=== PATIENT | male | born 1950 | race Caucasian/White ===

== ENCOUNTER → 2016-08-02 | Outpatient (CLI) | payer MEDICARE, BC ==
[~2016-08-02] MED LIST: BARIUM SULFATE 135 ML (E-Z HD) PO ONE
--- NOTE | 2016-08-02 15:39 | RADRPT ---
PROCEDURE: Video-fluoroscopy swallowing study. CLINICAL INDICATION: Dysphagia. TECHNIQUE: Fluoroscopic guided video swallowing study was done in conjunction with the speech ther apist. The study was confined to the oral, pharyngeal, and cervical phases of the swallowing mechani sm. 3.9 minutes of fluoroscopy time was used. COMPARISON: No prior study is available for comparison. FINDINGS: There is transient penetration but no evidence of aspiration during the exam. IMPRESSION: 1. Penetration. No aspiration. 2. Please refer to the speech therapist's recommendations for future feedings. RPTAT: QQ .Santos Cole MD, MD Date Time Electronically viewed and signed by .Santos Cole MD, MD on 08/02/2016 15:39 .R/
== END | disposition home or self-care (01) ==
LOC: RAD 11:54
PROVIDERS: ATTEND Internal Medicine
DX: R91.8 Other nonspecific abnormal finding of lung field (principal); R13.10 Dysphagia, unspecified
CPT/HCPCS: 74230; 92611; G8996; G8997; G8998

== ENCOUNTER 2016-08-29 13:40 | Inpatient (IN) | payer MEDICARE, MEDICAID, BC ==
[~2016-08-29] VITALS: Ht 160 cm; Wt 89.0 kg
[2016-08-29 14:17] LABS: ADD SCAN DIFF NO
[2016-08-29 14:24] LABS: BASOPHILS % 0.4 % (0.0-2.0); EOSINOPHILS # 0.1 10^3/ul (0.0-0.5); EOSINOPHILS % 1.5 % (0.0-7.0); HEMATOCRIT 36.6 % (42.0-52.0); HEMOGLOBIN 11.3 g/dl (14.0-18.0); LYMPHOCYTES # 1.4 10^3/ul (0.8-2.9); LYMPHOCYTES % 18.9 % (15.0-51.0); MEAN CORPUSCULAR HGB CONC 30.9 g/dl (32.0-37.0); MEAN CORPUSCULAR VOLUME 90.6 fl (82.0-101.0); MEAN PLATELET VOLUME 9.7 fl (7.4-10.4); MONOCYTE # 0.8 10^3/ul (0.3-0.9); NEUTROPHILS % 66.9 % (39.0-77.0); PLATELET COUNT 276 10^3/UL (140-415); RED BLOOD COUNT 4.04 10^6/ul (4.70-6.10); RED CELL DISTRIBUTION WIDTH 16.3 % (11.5-14.5); WHITE BLOOD COUNT 7.5 10^3/ul (4.8-10.8)
[2016-08-29 14:33] LABS: ALBUMIN 3.5 g/dl (3.3-4.9); POTASSIUM 3.9 mmol/L (3.5-5.1)
[2016-08-29 14:35] LABS: CREATININE 6.52 mg/dl (0.61-1.24); INR 1.11; PROTIME 14.3 Sec (12.2-14.2); PT RATIO 1.1
[2016-08-29 14:36] LABS: ALBUMIN/GLOBULIN RATIO 0.87; BILIRUBIN,INDIRECT 0.2 mg/dl (0-1.1); BILIRUBIN,TOTAL 0.2 mg/dl (0.2-1.3); CALCIUM 9.7 mg/dl (8.4-10.2); PARTIAL THROMBOPLASTIN TIME 34.2 Sec (25.0-35.0); TOTAL PROTEIN 7.5 g/dl (6.1-8.1)
[2016-08-29 14:48] LABS: TROPONIN-I 0.015 ng/ml (0.00-0.12)
[2016-08-29] MEDS ORDERED: ACETAMINOPHEN 650 MG SUPP PR ONE (15:00)
[2016-08-29 15:29] LABS: ADD UMIC YES; UR BILIRUBIN (Dip) NEGATIVE (NEGATIVE); UR BLOOD (Dip) NEGATIVE (NEGATIVE); UR CLARITY CLEAR (CLEAR); UR COLOR LT. YELLOW (YELLOW); UR GLUCOSE (Dip) NEGATIVE (NEGATIVE); UR KETONES (Dip) NEGATIVE (NEGATIVE); UR LEUKOCYTE ESTERASE (Dip) NEGATIVE (NEGATIVE); UR NITRITE (Dip) NEGATIVE (NEGATIVE); UR TOTAL PROTEIN (Dip) 2+ (NEGATIVE); UR UROBILINOGEN (Dip) 0.2 E.U./dL (0.1-1.0)
--- NOTE | 2016-08-29 15:42 | RADRPT ---
PROCEDURE: Chest Radiograph. CLINICAL INDICATION: Sepsis TECHNIQUE: Single frontal chest radiograph. COMPARISON: None available FINDINGS: A tracheostomy tube is in place. A right chest wall tunneled hemodialysis catheter is noted with di stal tip in the region of the proximal right atrium. The cardiomediastinal silhouette is within nor mal limits. No infiltrate or effusion is seen. The bones are intact. IMPRESSION: 1. No evidence of acute cardiopulmonary disease. RPTAT: KK .Baltazar Carter MD, Date Time Electronically viewed and signed by .Baltazar Carter MD, MD on 08/29/2016 15:42 .B/
[2016-08-29 15:50] LABS: URINE RBCS 0-2 /HPF (0)
[2016-08-29] MEDS ORDERED: AMLO-145 G-TUBE (16:10)
[2016-08-29] MEDS ORDERED: CLON-379 G-TUBE (16:14)
[2016-08-29] MEDS ORDERED: DOXA2TAB G-TUBE (16:16)
[2016-08-29] MEDS ORDERED: FOLI-49 G-TUBE (16:20)
[2016-08-29] MEDS ORDERED: HYDR-3671 G-TUBE (16:21)
[2016-08-29] MEDS ORDERED: HYDR-3672 G-TUBE (16:23)
[2016-08-29] MEDS ORDERED: LEVEM SC (16:26)
[2016-08-29] MEDS ORDERED: SS SC (16:28)
[2016-08-29] MEDS ORDERED: CEFEPIME 1GM/50 ML (PMX) 50 ML IVPB ONE (16:30)
[2016-08-29] MEDS ORDERED: VANCOMYCIN 1 GM (PMX) 250 ML IVPB SCH (16:30)
[2016-08-29] MEDS ORDERED: KEP100S G-TUBE (16:34)
[2016-08-29] MEDS ORDERED: MAG360OR42 G-TUBE (16:37)
[2016-08-29] MEDS ORDERED: METO-448 G-TUBE (16:39)
[2016-08-29] MEDS ORDERED: MAGN400O4 G-TUBE (16:42)
[2016-08-29] MEDS ORDERED: OMEP20CA16 G-TUBE (16:43)
[2016-08-29] MEDS ORDERED: ONDA4SOL PO (16:45)
[2016-08-29] MEDS ORDERED: PROT946L G-TUBE (16:47)
[2016-08-29] MEDS ORDERED: NEPH G-TUBE (16:48)
[2016-08-29] MEDS ORDERED: SENN-53 G-TUBE (16:51)
[2016-08-29] MEDS ORDERED: SEVE0.8P G-TUBE (16:52)
[2016-08-29] MEDS ORDERED: LEVA0.6312 HHN (16:54)
[2016-08-29] MEDS ORDERED: LEVA0.634 INHALATION (16:57)
[2016-08-29] MEDS ORDERED: ZOLP5TAB7 G-TUBE (16:59)
--- NOTE | 2016-08-29 17:06 | ERA ---
ER Documentation Chief Complaint Date/Time DATE: 08/29/16 TIME: 17:02 Chief Complaint SENT FROM SNF FOR EVAL OF FEVER. HPI The patient is a 66-year-old male, presenting with fever of 101.2. 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 Medications Home Meds Reported Medications Zolpidem Tartrate* (Zolpidem Tartrate*) 5 Mg Tablet, 5 MG G-TUBE QHS Y for INSOMNIA, #30 TAB 08/29/16 Levalbuterol Hcl* (Levalbuterol Hcl*) 0.63 Mg/3 Ml Vial.neb, 0.63 MG INHALATION FOUR TIMES DAILY Y for WHEEZING AND SOB, VIAL 08/29/16 Levalbuterol* (Xopenex*) 0.63 Mg/3 Ml Nebu, 0.63 MG HHN Q2H Y for WHEEZING AND SOB, EA 08/29/16 Sevelamer Carbonate* (Renvela*) 0.8 Gm Powd.pack, 0.8 GM G-TUBE WITH MEALS for HIGH PHOSPHOROUS, PACKET 08/29/16 Sennosides* (Senna Lax*) 8.6 Mg Tablet, 1 TAB G-TUBE DAILY for BOWEL MANAGEMENT , TAB HOLD FOR LOOSE STOOLS 08/29/16 Multivit/Ca Carb/B Cmplx/Fa* (Leah-Juan Jose*) 1 Tab Tab, 1 TAB G-TUBE DAILY for SUPPLEMENT, TAB 08/29/16 Protein Supplement (Promod) 946 Ml Liquid, 30 ML G-TUBE TID for LOW ALBUMIN 08/29/16 Ondansetron Hcl* (Ondansetron Hcl* Liq) 4 Mg/5 Ml Solution, 5 ML PO Q6H Y for PRN NV 08/29/16 Omeprazole* (Omeprazole*) 20 Mg Capsule.dr, 20 MG G-TUBE DAILY for GERD, #60 CAP 08/29/16 Magnesium Hydroxide* (Milk Of Magnesia*) 400 Mg/5 Ml Oral.susp, 30 ML G-TUBE DAILY AT BEDTIME Y for CONSTIPATION, ML 08/29/16 Metoprolol Tartrate* (Lopressor*) 25 Mg Tab, 25 MG G-TUBE BID for HTN, #60 TAB Hold forSBP less than 110 or HR less than 60 08/29/16 Mag Hydrox/Al Hydrox/Simeth (ALUM-MAG HYDROXIDE-SIMETH LIQ) 360 Ml Oral.susp, 30 ML G-TUBE Q6 for INDIGESTION 08/29/16 Levetiracetam* (Keppra* (Ped)) 100 Mg/Ml Liq, 5 ML G-TUBE BID for SEIZURES for 30 Days, BOTTLE 08/29/16 Insulin Human Regular (Novolin-R U-100) 100 Unit/Ml Soln, 0 SC SLIDING SCALE AC , EA Inject as per sliding scale: If 71-150=0 unit; 151-200=2 units; 201-250= 4 units ; 251-300= 6 uints; 301-350=8 units; 351-400= 10 units If BS>400, Give 12 units and CallMD, Subcutaneosly two times a day for DM with lancets and test strips. 08/29/16 Insulin Detemir (Levemir) 100 Unit/1 Ml Vial, 8 UNIT SC at Bedtimefor DM, VIAL 08/29/16 Hydralazine Hcl* (Hydralazine Hcl*) 50 Mg Tab, 50 MG G-TUBE Q8 for HTN, #120 TAB Holf for SBP less than 110 or HR les than 60 08/29/16 Hydralazine Hcl* (Hydralazine Hcl*) 25 Mg Tab, 25 MG G-TUBE Q6 Y for HTN, #120 TAB Give SBP>160 OR DIASTOLIC BP >95 08/29/16 Folic Acid* (Folic Acid*) 1 Mg Tablet, 1 MG G-TUBE DAILY for ANEMIA, TAB 08/29/16 Doxazosin Mesylate* (Doxazosin Mesylate*) 2 Mg Tablet, 2 MG G-TUBE QHS for HTN, TAB Hold for SBP less than 110 and HR less than 60 08/29/16 Clonidine Hcl* (Clonidine Hcl*) 0.1 Mg Tab, 0.1 MG G-TUBE DAILY Y for HTN, TAB Hold for SBP less than 110 or HR less than 60 08/29/16 Amlodipine Besylate* (Amlodipine Besylate*) 5 Mg Tablet, 5 MG G-TUBE DAILY for HTN, #30 TAB HOLD FOR SBPLESS THAN 10 OR HR LESS THAN 60 08/29/16 Allergies Allergies: Coded Allergies: No Known Allergy (Unverified , 08/29/16) PMhx/Soc Hx Alcohol Use: No Hx Substance Use: No Hx Tobacco Use: No Smoking Status: Never smoker Physical Exam Vitals Vital Signs Date Time Temp Pulse Resp B/P Pulse Ox O2 Delivery O2 Flow Rate FiO2 08/29/16 15:32 109 24 122/63 97 08/29/16 14:26 109 24 92/57 97 08/29/16 13:42 101.2 114 24 114/57 97 Physical Exam Const: No acute distress. Head: Atraumatic. Eyes: Normal Conjunctiva. ENT: Normal External Ears, Nose and Mouth. Neck: Full range of motion. No meningismus. Resp: Clear to auscultation bilaterally. Cardio: Regular tachycardic Abd: Soft, non distended, normal bowel sounds, non tender. Skin: No petechiae or rashes. Back: No midline or flank tenderness. Ext: No cyanosis, or edema. Neur: Awake and alert. No focal deficit Psych: Normal Mood and Affect. Result Diagram: 08/29/16 1400 08/29/16 1400 Results 24 hrs Laboratory Tests Test 08/29/16 14:00 08/29/16 15:15 White Blood Count 7.510^3/ul Red Blood Count 4.0410^6/ul Hemoglobin 11.3g/dl Hematocrit 36.6% Mean Corpuscular Volume 90.6fl Mean Corpuscular Hemoglobin 28.0pg Mean Corpuscular Hemoglobin Concent 30.9g/dl Red Cell Distribution Width 16.3% Platelet Count 47290^3/UL Mean Platelet Volume 9.7fl Neutrophils % 66.9% Lymphocytes % 18.9% Monocytes % 11.0% Eosinophils % 1.5% Basophils % 0.4% Nucleated Red Blood Cells % 0.0/100WBC Neutrophils # 5.010^3/ul Lymphocytes # 1.410^3/ul Monocytes # 0.810^3/ul Eosinophils # 0.110^3/ul Basophils # 0.010^3/ul Nucleated Red Blood Cells # 0.010^3/ul Prothrombin Time 14.3Sec Prothrombin Time Ratio 1.1 INR International Normalized Ratio 1.11 Activated Partial Thromboplast Time 34.2Sec Sodium Level 132mmol/L Potassium Level 3.9mmol/L Chloride Level 90mmol/L Carbon Dioxide Level 28mmol/L Anion Gap 18 Blood Urea Nitrogen 73mg/dl Creatinine 6.52mg/dl Glucose Level 155mg/dl Lactic Acid Level 1.0mmol/L Calcium Level 9.7mg/dl Total Bilirubin 0.2mg/dl Direct Bilirubin 0.00mg/dl Indirect Bilirubin 0.2mg/dl Aspartate Amino Transf (AST/SGOT) 58IU/L Alanine Aminotransferase (ALT/SGPT) 20IU/L Alkaline Phosphatase 96IU/L Troponin I 0.015ng/ml Total Protein 7.5g/dl Albumin 3.5g/dl Globulin 4.00g/dl Albumin/Globulin Ratio 0.87 Urine Color LT. YELLOW Urine Clarity CLEAR Urine pH 7.5 Urine Specific [place] 1.015 Urine Ketones NEGATIVE Urine Nitrite NEGATIVE Urine Bilirubin NEGATIVE Urine Urobilinogen 0.2 E.U./dL Urine Leukocyte Esterase NEGATIVE Urine Microscopic RBC 0-2/HPF Urine Microscopic WBC 0-2/HPF Urine Hemoglobin NEGATIVE Urine Glucose NEGATIVE% Urine Total Protein 2+ Current Medications Medications (Trade) Dose Ordered Sig/[place] Route PRN Reason Start Time Stop Time Status Last Admin Dose Admin Acetaminophen 650 mg 650 mg ONCE ONCE IA 08/29/16 15:00 08/29/16 15:01 DC 08/29/16 14:45 Vancomycin HCl 250 ml @ 125 mls/hr ONCE IVPB 08/29/16 16:30 08/29/16 18:29 08/29/16 17:00 Cefepime HCl (Maxipime 1gm/50 ml (Pmx)) 50 ml @ 100 mls/hr ONCE ONCE IVPB 08/29/16 16:30 08/29/16 16:59 DC 08/29/16 16:20 Procedures/[place] [id number] Radiology Main Line: [phone] DIAGNOSTIC IMAGING REPORT Patient: PEE MYERS : 1950 Age: 66 Sex: M MR #: [id number] DOS: 08/29/16 1356 Ordering MD: JAVON HERNÁNDEZ MD Location: E/R Room/Bed: PROCEDURE: Chest Radiograph. CLINICAL INDICATION: Sepsis TECHNIQUE: Single frontal chest radiograph. COMPARISON: None available FINDINGS: A tracheostomy tube is in place. A right chest wall tunneled hemodialysis catheter is noted with distal tip in the region of the proximal right atrium. The cardiomediastinal silhouette is within normal limits. No infiltrate or effusion is seen. The bones are intact. IMPRESSION: 1. No evidence of acute cardiopulmonary disease. RPTAT: KK .Baltazar Carter MD, Date Time Electronically viewed and signed by .Baltazar Carter MD, on 2016 15:42 .B/ CC: JAVON HERNÁNDEZ MD EKG: Read by emergency physician Rate/Rhythm: Sinus tachycardia 109 beats/min QRS, ST, T-waves: No ST elevation, no T inversion Impression: Abnormal EKG MEDICAL MAKING DECISION: The patient is a 66-year-old male, presenting with acute febrile illness of unclear etiology. He was treated with Tylenol supp for fever, cefepime IV, vancomycin IV. The differential diagnoses considered include but are not limited to pneumonia, cystitis, pyelonephritis, line sepsis Departure Diagnosis: Primary Impression: Acute febrile illness Additional Impression: Anemia Condition: Stable Comments I discussed the findings with the patient. I discussed the patient with his physician Dr. Oates who was made aware of the lab, the treatment, the patient condition. The patient is admitted to [facility] at 4:10 pm JAVON HERNÁNDEZ MD Aug 29, 2016 17:06
[2016-08-29 18:30] VITALS: TEMP 97.9
[2016-08-29 22:15] VITALS: BMI 20.7
[2016-08-29 22:54] VITALS: BP 153/67; RESP 17
[2016-08-29] MEDS ORDERED: ONDANSETRON 4 MG TAB GTB PRN (23:00)
[2016-08-29] MEDS ORDERED: LEVALBUTEROL (NEB) 0.63 MG/3 ML AMP HHN PRN (23:00)
[2016-08-29] MEDS ORDERED: ZOLPIDEM 5 MG TAB GTB PRN (23:00)
[2016-08-29] MEDS ORDERED: VANCOMYCIN IV PER PHARMACY XX SCH (23:00)
[2016-08-30] VITALS (23 sets, daily range): BP systolic 119–163; BP diastolic 56–89; PULSE 73–109; RESP 17–20
--- NOTE | 2016-08-30 00:28 | HP ---
DATE OF ADMISSION: 08/29/2016 CHIEF COMPLAINT AND HISTORY OF PRESENT ILLNESS: History is obtained from medical record as the yomi ent is nonverbal. The patient is a 66-year-old gentleman with history of right-sided nontraumatic i ntracranial hemorrhage, status post craniotomy; end-stage renal disease on hemodialysis; hypertensio n; dysphagia; diabetes; chronic respiratory failure. The patient is on ventilator and has tracheost brionna and G-tube feeding. The patient has chronic left-sided weakness due to right-sided intracranial bleed. The patient was sent from [facility] subacute unit due to fever. The patient is at [facility], is awake, however nonverbal. The patient did not have any active wheezing. No reported vom iting or diarrhea. No reported acute neurological changes. The patient did not have any bleeding f rom any site. The patient was seen in the ER, was noted to have white count of 7.5. Chest x-ray re vealed no evidence of acute cardiopulmonary disease. The patient has a right-sided PermCath. Blood cultures were sent, and the patient was started on IV vancomycin and cefepime. REVIEW OF SYSTEMS: The patient could not provide. PAST MEDICAL HISTORY: As stated above. ALLERGIES: NONE. SOCIAL HISTORY: The patient has history of nicotine abuse, alcohol abuse, cocaine abuse, details no t available. FAMILY HISTORY: Could not be obtained. PHYSICAL EXAMINATION: GENERAL: The patient is awake, nonverbal, inconsistently tracks. VITAL SIGNS: Temperature 101.2, pulse 115, respirations 24, blood pressure 114/57, O2 saturation 97 %. HEENT: Conjunctivae and lids normal. No nystagmus. Oropharynx examination grossly negative. NECK: Tracheostomy in place. No mass. CHEST: Fairly clear. No use of accessory muscles. CARDIOVASCULAR: Sinus tachycardia. S1, S2 normal. No murmur. ABDOMEN: Soft, nondistended, nontender. G-tube in place. EXTREMITIES: No edema. NEUROLOGIC: The patient is awake, however nonverbal, has dense left hemiplegia. LABORATORY DATA: WBC 7.5, hemoglobin 11.3, platelets 276. Chemistry: Sodium 132, potassium 3.9, B UN 73, creatinine 6.5. Lactic acid normal. AST 58, ALT 20, alkaline phosphatase 96. IMPRESSION: 1. Acute tracheobronchitis. 2. Rule out line sepsis. 3. End-stage renal disease on hemodialysis. 4. Hypertension. 5. History of nontraumatic intracranial bleed, status post craniotomy. 6. Possible seizure disorder. 7. Diabetes. 8. Anemia of chronic kidney disease. PLAN: The patient will be admitted on medical floor. The patient will be started on IV vancomycin and cefepime. Blood culture and sputum culture will be sent along with urine culture. The patient will be given breathing treatment and will be continued on Norvasc, hydralazine and metoprolol for b lood pressure. Will continue doxazosin for BPH. The patient will be continued on insulin for diabe tic management and Keppra for seizures. Will notify his universal grinder operator. Further recommendations will depend on the patient's hospital course. Prognosis for any meaningful recovery poor. The patient remains total care. Dictated By: PHILL FENTON/FRANCES Conf#: [id number] DID#: [id number]
[2016-08-30] MEDS: LANSOPRAZOLE 30 MG CAP GTB SCH (05:38)
[2016-08-30] MEDS: INSULIN ASPART [NOVOLOG] 3 ML PEN SC SCH ×4 (05:50→18:00)
[2016-08-30 07:38] LABS: ADD SCAN DIFF NO
[2016-08-30 07:42] LABS: BASOPHILS % 0.4 % (0.0-2.0); EOSINOPHILS # 0.4 10^3/ul (0.0-0.5); HEMATOCRIT 33.6 % (42.0-52.0); HEMOGLOBIN 10.8 g/dl (14.0-18.0); LYMPHOCYTES % 12.6 % (15.0-51.0); MEAN CORPUSCULAR HGB CONC 32.1 g/dl (32.0-37.0); MEAN CORPUSCULAR VOLUME 90.1 fl (82.0-101.0); MEAN PLATELET VOLUME 9.3 fl (7.4-10.4); MONOCYTE # 0.8 10^3/ul (0.3-0.9); MONOCYTES % 10.6 % (0.0-11.0); NEUTROPHIL # 5.5 10^3/ul (1.6-7.5); NEUTROPHILS % 70.2 % (39.0-77.0); PLATELET COUNT 305 10^3/UL (140-415); RED BLOOD COUNT 3.73 10^6/ul (4.70-6.10); RED CELL DISTRIBUTION WIDTH 16.2 % (11.5-14.5); WHITE BLOOD COUNT 7.8 10^3/ul (4.8-10.8)
[2016-08-30] MEDS: LEVALBUTEROL (NEB) 0.63 MG/3 ML AMP NEB SCH ×4 (08:34→21:17)
[2016-08-30] MEDS ORDERED: CEFEPIME 1GM/50 ML (PMX) 50 ML IVPB SCH (09:00)
[2016-08-30] MEDS: SEVELAMER CARBONATE 0.8 GM PKT GTB SCH ×3 (09:45→17:56)
[2016-08-30] MEDS: AMLODIPINE 5 MG TAB GTB SCH (09:46)
[2016-08-30] MEDS: MULTIVIT/CA CARB/B CMPLX/FA TAB GTB SCH (09:46)
[2016-08-30] MEDS: METOPROLOL 25 MG TAB GTB SCH ×2 (09:46→21:52)
[2016-08-30] MEDS: FOLIC ACID 1 MG TAB GTB SCH (09:47)
[2016-08-30] MEDS: SENNA TAB GTB SCH (09:47)
[2016-08-30] MEDS: LEVETIRACETAM (100 MG/ML) 5ML CUP GTB SCH ×2 (09:47→21:51)
[2016-08-30] MEDS: ACETAMINOPHEN 650MG/20.3ML CUP GTB PRN (09:51)
[2016-08-30 10:40] LABS: POTASSIUM 3.9 mmol/L (3.5-5.1)
[2016-08-30 10:42] LABS: CREATININE 7.58 mg/dl (0.61-1.24)
--- NOTE | 2016-08-30 14:09 | PN ---
Date/Time of Note Date/Time of Note DATE: 08/30/16 TIME: 14:03 Assessment/Plan VTE Prophylaxis VTE Prophylaxis Intervention: other Lines/Catheters IV [facility]ter [facility]from [facility] Saline Lock Urinary Cath still in place: No Assessment/Plan Assessment/Plan - Acute tracheobronchitis. -Pulmonary consult, Dr. Tim notified - Rule out line sepsis. -We will get the ID consult, Dr. Larsen notified - Chronic respiratory failure with tracheostomy, currently on T-piece. - per Dr. Freitas in pulmonology consultation - End-stage renal disease on hemodialysis. -We will get the blueprint duplicator consult, Dr. Sales wascalled by Dr Britton - Hypertension. -Continue metoprolol and hydralazine. - History of nontraumatic intracranial bleed, status post craniotomy. - Possible seizure disorder. Seizure precautions - Diabetes. -Glycemic control - Continue Levemir and NovoLog per mild algorithm sliding scale. - Anemia of chronic kidney disease.= monitor CBC PLAN: The patient will be admitted on medical floor. The patient will be started on IV vancomycin and cefepime. Blood culture and sputum culture will be sent along with urine culture. The patient will be given breathing treatment and will be continued on Norvasc, hydralazine and metoprolol for blood pressure. Will continue doxazosin for BPH. The patient will be continued on insulin for diabetic management and Keppra for seizures. Will notify his blueprint duplicator. Further recommendations will depend on the patient's hospital course. Prognosis for any meaningful recovery poor. The patient remains total care. Subjective 24 Hr Interval Summary Free Text/Dictation febrile, awake, no aitation noted, trach intact . dw staff Subjective hx not possible: pt non-verbal Constitutional: requiring IVF, requiring O2 Eyes: no complaints ENT: no complaints Exam/Review of Systems Vital Signs Vitals Vital Signs Date Time Temp Pulse Resp B/P Pulse Ox O2 Delivery O2 Flow Rate FiO2 08/30/16 12:40 107 08/30/16 11:38 20 98 Aerosol 5.0 28 T Tube 08/30/16 11:28 102.4 133/60 Intake and Output 08/29/16 08/29/16 08/30/16 15:00 23:00 07:00 Intake Total 435 ml Balance 435 ml Exam Psych: nl mood/affect ENMT: nl external ears & nose Respiratory: diminished breath sounds (bilateral diminshed breath sounds) Cardiovascular: regular rate and rhythm Gastrointestinal: non-tender, soft Musculoskeletal: muscle weakness Extremities: normal pulses Neurological: confused Skin: other Lymph: nontender Results Result Diagram: 08/30/16 0700 08/30/16 0955 Results 24 hrs Laboratory Tests Test 08/29/16 15:15 08/29/16 17:15 08/29/16 19:05 08/30/16 00:44 Urine Color LT. YELLOW Urine Clarity CLEAR Urine pH 7.5 Urine Specific [place] 1.015 Urine Ketones NEGATIVE Urine Nitrite NEGATIVE Urine Bilirubin NEGATIVE Urine Urobilinogen 0.2 E.U./dL Urine Leukocyte Esterase NEGATIVE Urine Microscopic RBC 0-2 Urine Microscopic WBC 0-2 Urine Hemoglobin NEGATIVE Urine Glucose NEGATIVE Urine Total Protein 2+ H Lactic Acid Level 1.0 1.5 Bedside Glucose 114 Test 08/30/16 05:45 08/30/16 07:00 08/30/16 09:55 08/30/16 12:13 Bedside Glucose 158 203 White Blood Count 7.8 Red Blood Count 3.73 L Hemoglobin 10.8 L Hematocrit 33.6 L Mean Corpuscular Volume 90.1 Mean Corpuscular Hemoglobin 29.0 Mean Corpuscular Hemoglobin Concent 32.1 Red Cell Distribution Width 16.2 H Platelet Count 305 Mean Platelet Volume 9.3 Neutrophils % 70.2 Lymphocytes % 12.6 L Monocytes % 10.6 Eosinophils % 5.0 Basophils % 0.4 Nucleated Red Blood Cells % 0.0 Neutrophils # 5.5 Lymphocytes # 1.0 Monocytes # 0.8 Eosinophils # 0.4 Basophils # 0.0 Nucleated Red Blood Cells # 0.0 Sodium Level 133 L Potassium Level 3.9 Chloride Level 90 L Carbon Dioxide Level 27 Anion Gap 20 H Blood Urea Nitrogen 89 H Creatinine 7.58 H Glucose Level 189 Calcium Level 10.0 Prealbumin 25.2 Medications Medications Current Medications Amlodipine Besylate (Norvasc) 5 mg DAILY GTB Last administered on 08/30/16t 09: 46; Admin Dose 5 MG; Start 08/30/16 at 09:00 Clonidine (Catapres) 0.1 mg DAILY PRN GTB ELEVATED SYSTOLIC BP; Start 08/29/16 at 23:00 Doxazosin Mesylate (Cardura) 2 mg QHS GTB ; Start 08/30/16 at 21:00 Folic Acid (Folic Acid) 1 mg DAILY GTB Last administered on 08/30/16 09:47; Admin Dose 1 MG; Start 08/30/16 at 09:00 Hydralazine HCl (Apresoline) 50 mg Q8 GTB Last administered on 08/30/16 12:23 ; Admin Dose 50 MG; Start 08/30/16 at 06:00 Levetiracetam (Keppra Liquid) 500 mg BID GTB Last administered on 08/30/16 09: 47; Admin Dose 500 MG; Start 08/30/16 at 09:00 Metoprolol Tartrate (Lopressor) 25 mg BID GTB Last administered on 08/30/16 09 :46; Admin Dose 25 MG; Start 08/30/16 at 09:00 Multivit/Ca Carb/ B Cmplx/FA/Prenat (Leah-Juan Jose) 1 tab DAILY GTB Last administered on 08/30/16 09:46; Admin Dose 1 TAB; Start 08/30/16 at 09:00 Ondansetron HCl (Zofran Tab) 4 mg Q6H PRN GTB NAUSEA AND/OR VOMITING; Start at 23:00 Senna (Senokot) 1 tab DAILY GTB Last administered on 08/30/16 09:47; Admin Dose 1 TAB; Start 08/30/16 at 09:00 Zolpidem Tartrate (Ambien) 5 mg QHS PRN GTB INSOMNIA; Start 08/29/16 at 23:00 Insulin Detemir (Levemir) 8 unit HS SC ; Start 08/30/16 at 21:00 Lansoprazole (Prevacid) 30 mg DAILY@06 GTB Last administered on 08/30/16 05:38 ; Admin Dose 30 MG; Start 08/30/16 at 06:00 Acetaminophen 650 mg 650 mg Q4H PRN GTB PAIN AND OR ELEVATED TEMP Last administered on 08/30/16 09:51; Admin Dose 650 MG; Start 08/29/16 at 23:00 Cefepime HCl (Maxipime 1gm/50 ml (Pmx)) 50 ml @ 100 mls/hr Q12 IVPB Last administered on 08/30/16 09:48; Admin Dose 100 MLS/HR; Start 08/30/16 at 09:00 Insulin Aspart (Novolog Insulin Pen) NOVOLOG *MILD* ALGORI... Q6 SC Last administered on 08/30/16t 12:22; Admin Dose 2 UNIT; Start 08/30/16 at 00:00 Miscellaneous Information (*Rx Drug Level Order Reminder*) RANDOM VANCO LEVEL... ONCE ONCE XX ; Start 08/31/16 at 05:00; Stop 08/31/16 at 05:01 CANDY JUAREZ Aug 30, 2016 14:09
--- NOTE | 2016-08-30 19:04 | CONS ---
Date/Time of Note Date/Time of Note DATE: 08/30/16 TIME: 18:58 Assessment/Plan Assessment/Plan Chief Complaint/Hosp Course assessment/impression - sepsis, possible etiologies include HCAP, bronchitis, bloodstream infections - GNR in sputum culture, possible HCAP - congested cough and clear CXR also raises a concern for viral bronchitis - ESRD on HD - h/o CVA s/p craniotomy - DM recommendations - await the final results of sputum culture, blood cultures from portacath, urine culture - ordered: nasopharyngeal swab for influenza A/B by EIA and influenza by PCR, viral respiratory panel - continue empiric IV vancomycin and cefepime (08/29/2016-) - I placed Pt on droplet precautions until respiratory viruses are ruled out ( ordered today) management d/w Pt's RN Problems: Consultation Date/Type/Reason Admit Date/Time Aug 29, 2016 at 16:21 Date of Consultation: Aug 30, 2016 Reason for Consultation sepsis Referring Provider: CANDY JUAREZ Hx of Present Illness This is a 66 yo male SNF resident who was transferred here due to fever. He has h/o CVA s/p craniotomy, vent and G tube dependent, ESRD on HD, DM. Pt is non-verbal and cannot give me the subjective history. his initial CXR was clear. his sputum culture is growing GNR. Blood and urine cultures are in process. EVELIN Juarez requested ID consultation on this Pt. Subjective hx not possible: pt non-verbal Psychological: nl mood/affect Past Medical History Medical History: diabetes, hypertension, renal disease Past Surgical History Past Surgical Hx: other (craniotomy, G tube, tracheostomy) Social History Smoking Status: Never smoker Exam/Review of Systems Vital Signs Vitals Vital Signs Date Time Temp Pulse Resp B/P Pulse Ox O2 Delivery O2 Flow Rate FiO2 08/30/16 18:49 76 08/30/16 16:42 20 98 Aerosol 5.0 28 T Tube 08/30/16 16:02 99.1 119/56 Intake and Output 08/29/16 08/29/16 08/30/16 15:00 23:00 07:00 Intake Total 435 ml Balance 435 ml Exam Constitutional: frail, non-verbal Psych: confusion Head: other (s/p craniotomy) Eyes: nl conjunctiva ENMT: nl external ears & nose Neck: other (trach) Respiratory: congested cough, wheezing Cardiovascular: nl pulses, regular rate and rhythm Gastrointestinal: non-tender, other (GT), soft Extremities: No edema Neurological: confused, unresponsive Skin: nl turgor Results Result Diagram: 08/30/16 0700 08/30/16 0955 Results 24 hrs Laboratory Tests Test 08/29/16 19:05 08/30/16 00:44 08/30/16 05:45 08/30/16 07:00 Lactic Acid Level 1.5 Bedside Glucose 114 158 White Blood Count 7.8 Red Blood Count 3.73 L Hemoglobin 10.8 L Hematocrit 33.6 L Mean Corpuscular Volume 90.1 Mean Corpuscular Hemoglobin 29.0 Mean Corpuscular Hemoglobin Concent 32.1 Red Cell Distribution Width 16.2 H Platelet Count 305 Mean Platelet Volume 9.3 Neutrophils % 70.2 Lymphocytes % 12.6 L Monocytes % 10.6 Eosinophils % 5.0 Basophils % 0.4 Nucleated Red Blood Cells % 0.0 Neutrophils # 5.5 Lymphocytes # 1.0 Monocytes # 0.8 Eosinophils # 0.4 Basophils # 0.0 Nucleated Red Blood Cells # 0.0 Test 08/30/16 09:55 08/30/16 12:13 08/30/16 17:58 Sodium Level 133 L Potassium Level 3.9 Chloride Level 90 L Carbon Dioxide Level 27 Anion Gap 20 H Blood Urea Nitrogen 89 H Creatinine 7.58 H Glucose Level 189 Calcium Level 10.0 Prealbumin 25.2 Bedside Glucose 203 194 Medications Medications Current Medications Amlodipine Besylate (Norvasc) 5 mg DAILY GTB Last administered on 08/30/16 09: 46; Admin Dose 5 MG; Start 08/30/16 at 09:00 Clonidine (Catapres) 0.1 mg DAILY PRN GTB ELEVATED SYSTOLIC BP; Start 08/29/16 at 23:00 Doxazosin Mesylate (Cardura) 2 mg QHS GTB ; Start 08/30/16 at 21:00 Folic Acid (Folic Acid) 1 mg DAILY GTB Last administered on 08/30/16 09:47; Admin Dose 1 MG; Start 08/30/16 at 09:00 Hydralazine HCl (Apresoline) 50 mg Q8 GTB Last administered on 08/30/16 12:23 ; Admin Dose 50 MG; Start 08/30/16 at 06:00 Levetiracetam (Keppra Liquid) 500 mg BID GTB Last administered on 08/30/16 09: 47; Admin Dose 500 MG; Start 08/30/16 at 09:00 Metoprolol Tartrate (Lopressor) 25 mg BID GTB Last administered on 08/30/16 09 :46; Admin Dose 25 MG; Start 08/30/16 at 09:00 Multivit/Ca Carb/ B Cmplx/FA/Prenat (Leah-Juan Jose) 1 tab DAILY GTB Last administered on 08/30/16 09:46; Admin Dose 1 TAB; Start 08/30/16 at 09:00 Ondansetron HCl (Zofran Tab) 4 mg Q6H PRN GTB NAUSEA AND/OR VOMITING; Start at 23:00 Senna (Senokot) 1 tab DAILY GTB Last administered on 08/30/16 09:47; Admin Dose 1 TAB; Start 08/30/16 at 09:00 Zolpidem Tartrate (Ambien) 5 mg QHS PRN GTB INSOMNIA; Start 08/29/16 at 23:00 Insulin Detemir (Levemir) 8 unit HS SC ; Start 08/30/16 at 21:00 Lansoprazole (Prevacid) 30 mg DAILY@06 GTB Last administered on 08/30/16 05:38 ; Admin Dose 30 MG; Start 08/30/16 at 06:00 Acetaminophen (Tylenol Liquid) 650 mg Q4H PRN GTB PAIN AND OR ELEVATED TEMP Last administered on 08/30/16 09:51; Admin Dose 650 MG; Start 08/29/16 at 23:00 Insulin Aspart (Novolog Insulin Pen) NOVOLOG *MILD* ALGORI... Q6 SC Last administered on 08/30/16 18:00; Admin Dose 2 UNIT; Start 08/30/16 at 00:00 Miscellaneous Information RANDOM VANCO LEVEL... ONCE ONCE XX ; Start 08/31/16 at 05:00; Stop 08/31/16 at 05:01 Cefepime HCl (Maxipime 1gm/50 ml (Pmx)) 50 ml @ 100 mls/hr Q24H IVPB ; Start at 09:00 ESTRELLITA ZAMBRANO M.D. Aug 30, 2016 19:04
--- NOTE | 2016-08-30 20:34 | CONS ---
DATE OF ADMISSION: 08/29/2016 DATE OF CONSULTATION: 08/30/2016 TYPE OF CONSULTATION: Nephrology. REASON FOR CONSULTATION: End-stage renal disease, uremia. REQUESTING CONSULTATION: Dr. Godinez. HISTORY OF PRESENT ILLNESS: This is a 66-year-old male with a past medical history of end-stage cyndy al disease on dialysis Saturday, Saturday, Saturday with access Perm-A-Cath. Last hemodialysis was Sat. The patient has a history of chronic respiratory failure status post tracheostomy, dysphagia s tatus post PEG, history of chronic encephalopathy, history of hypertension, diabetes who presents to [facility] for evaluation of fever. The patient resides at [facility], was noted to have underlying fever. As a result, he was brought into [facility] Emergency Room . In the emergency room, the patient had a chest x-ray that showed no acute cardiopulmonary disease . The patient in the emergency room was started on broad spectrum antibiotic therapy. He was subse quently admitted to telemetry for further evaluation. Upon my evaluation of the patient at this time was noted to have thick productive sputum, but no oth er acute events noted. No hemoptysis, hematemesis or hematochezia. PAST MEDICAL HISTORY: As stated above, history of intracranial hemorrhage status post craniotomy, h istory of end-stage renal disease, history of anemia, history of , history of chronic respirato ry status post tracheostomy, history of dysphagia, history of diabetes, hypertension. PAST SURGICAL HISTORY: Status post trach, status post PEG, status post Perm-A-Cath placement, statu s post craniotomy. FAMILY HISTORY: Noncontributory. SOCIAL HISTORY: Lives at senior living facility. MEDICATIONS: The patient's medications have been reviewed. REVIEW OF SYSTEMS: Unable to do adequate review of system as the patient is nonverbal. Pertinent p ositives obtained by reviewing medical records and speaking to hospital staff, stated in HPI, otherw ise negative. PHYSICAL EXAMINATION: VITAL SIGNS: Blood pressure 133/60, respirations 20, pulse 108, temperature 102.4. HEENT: Head is normocephalic. NECK: Supple. HEART: Regular rate. LUNGS: Show diminished breath sounds at base. ABDOMEN: Soft, nontender to palpation. No rebound or guarding. EXTREMITIES: Negative for clubbing, cyanosis. No edema. DERMATOLOGIC: No rashes. MUSCULOSKELETAL: No joint effusions. NEUROLOGIC: The patient is obtunded, limited exam. LABORATORY DATA: Shows a sodium 7.8, hemoglobin 10, hematocrit 33.6, platelet count 205. Sodium 13 3, potassium 3.9, chloride 90, BUN 89, creatinine 7.5. A urinalysis shows no pyuria, no hematuria. X-ray shows no acute pulmonary disease. The patient's sputum culture shows gram-negative rods. ASSESSMENT AND PLAN: This is a 66-year-old male who presents with: 1. End-stage renal disease, on dialysis Saturday, Saturday, Saturday with a Perm-A-Cath as access. patient's last hemodialysis was Saturday. Plan is for dialysis today for 3 hours, 2K bath, calcium 2.5 for solute clearance and volume removal. Anticipate dialysis tomorrow as well. 2. Anemia of chronic kidney disease. Monitor H and H levels. Give Epogen as needed. 3. Mineral bone disorder. Monitor calcium and phosphorus levels. Continue phosphate binders. 4. Hypertension. Current blood pressure regimen. 5. Sepsis, underlying source unclear, possible line infection versus tracheobronchitis. Plan at th is point is to check an occult blood culture from patient's PermCath. The patient is on empiric ant ibiotic therapy. We will follow up peripheral blood cultures. We follow up with infectious disease for recommendations. 6. Chronic respiratory failure, status post trach. Continue current local trach care, continue tra ch mask. 7. Dysphagia. The patient is on tube feedings. 8. Diabetes. Continue Accu-Cheks and sliding scale. 9. Chronic encephalopathy. No change. 10. Mild hyponatremia. Continue to monitor. The patient will be dialyzed on a 140 sodium bath. 11. Seizure disorder. Continue current medical management. 12. History of intracranial bleed status post craniotomy. Thank you, Dr. Godinez, for this interesting consultation. It will be a pleasure to follow your pa tient with you throughout the hospital course. Dictated By: MARYURI RYAN DO NR/NTS Conf#: [id number] DID#: [id number] CC: PHILL GODINEZ MD;*EndCC*
[2016-08-30] MEDS: INSULIN DETEMIR [LEVEMIR] 3ML CART SC SCH (21:57)
[2016-08-31] VITALS (21 sets, daily range): BP systolic 88–144; BP diastolic 51–78; PULSE 84–112; RESP 18–20
[2016-08-31] MEDS: ACETAMINOPHEN 650MG/20.3ML CUP GTB PRN ×2 (00:44→05:52)
[2016-08-31] MEDS: DOXAZOSIN 2 MG TAB GTB SCH ×2 (00:46→21:19)
[2016-08-31] MEDS: INSULIN ASPART [NOVOLOG] 3 ML PEN SC SCH ×4 (00:56→17:52)
[2016-08-31] MEDS: LANSOPRAZOLE 30 MG CAP GTB SCH (05:40)
[2016-08-31 06:46] LABS: ADD SCAN DIFF NO
[2016-08-31 06:55] LABS: BASOPHIL # 0.1 10^3/ul (0.0-0.1); BASOPHILS % 0.6 % (0.0-2.0); EOSINOPHILS # 0.2 10^3/ul (0.0-0.5); HEMATOCRIT 34.2 % (42.0-52.0); HEMOGLOBIN 10.6 g/dl (14.0-18.0); LYMPHOCYTES # 1.1 10^3/ul (0.8-2.9); LYMPHOCYTES % 13.2 % (15.0-51.0); MEAN CORPUSCULAR HEMOGLOBIN 28.3 pg (29.0-33.0); MEAN CORPUSCULAR VOLUME 91.4 fl (82.0-101.0); MEAN PLATELET VOLUME 9.7 fl (7.4-10.4); NEUTROPHIL # 5.7 10^3/ul (1.6-7.5); NEUTROPHILS % 70.6 % (39.0-77.0); PLATELET COUNT 298 10^3/UL (140-415); RED BLOOD COUNT 3.74 10^6/ul (4.70-6.10); RED CELL DISTRIBUTION WIDTH 16.6 % (11.5-14.5)
[2016-08-31] MEDS ORDERED: DEXTROSE 50% 50 ML SYRINGE IV PRN (07:00)
[2016-08-31] MEDS ORDERED: GLUCAGON 1 MG INJ IM PRN (07:00)
[2016-08-31] MEDS ORDERED: GLUCOSE GEL 15 GRAM TUBE BUCCAL PRN (07:00)
[2016-08-31] MEDS ORDERED: GLUCOSE GEL 15 GRAM TUBE PO PRN ×2 (07:00)
[2016-08-31 07:06] LABS: POTASSIUM 3.9 mmol/L (3.5-5.1)
[2016-08-31 07:08] LABS: CREATININE 5.14 mg/dl (0.61-1.24)
[2016-08-31 07:09] LABS: CALCIUM 9.6 mg/dl (8.4-10.2)
[2016-08-31] MEDS: LEVALBUTEROL (NEB) 0.63 MG/3 ML AMP NEB SCH ×4 (08:55→21:25)
[2016-08-31] MEDS: METOPROLOL 25 MG TAB GTB SCH ×3 (09:00→21:19)
[2016-08-31] MEDS: AMLODIPINE 5 MG TAB GTB SCH ×2 (09:00→15:51)
--- NOTE | 2016-08-31 09:11 | PN ---
DATE: 08/31/2016 SUBJECTIVE: The patient had hemodialysis yesterday and tolerated it well. The patient remains febr ile, but defervescing, as fever curve is decreasing. No other events noted. No hemoptysis, hematem esis or hematochezia. OBJECTIVE: VITAL SIGNS: Blood pressure 111/56, respirations 18, pulse 104, temperature is 99.5. HEENT: Head is normocephalic. NECK: Shows a trach. HEART: Regular rate. LUNGS: Showed diminished breath sounds at the base. ABDOMEN: Soft, nontender to palpation. No rebound or guarding. EXTREMITIES: Negative for clubbing or cyanosis. No edema. DERMATOLOGIC: No rashes. MUSCULOSKELETAL: Have no joint effusion. NEUROLOGIC: No change in exam. MEDICATIONS: The patient's medication have been reviewed. LABORATORY DATA: Shows sodium 136, potassium 3.9, chloride 94, BUN 63, creatinine 5.14. White coun t 8.0, hemoglobin 10.6, hematocrit 34.2, platelet count is 298. ASSESSMENT AND PLAN: 1. End-stage renal disease. The patient is on dialysis Saturday, Saturday, Saturday. Had hemodialysi s yesterday. Plan for dialysis today to maintain schedule. Dialyze for 3 hours, 3K bath, calcium 2 .5. Will ultrafiltrate as tolerated. 2. Anemia of chronic disease. Will continue to monitor H and H levels. Give Epogen. 3. Mineral bone disorder. Continue to monitor calcium and phosphorus levels. Continue phosphate b inders. 4. Hypertension. Continue the current blood pressure regimen. 5. Sepsis. Underlying source unclear, possibly line infection versus tracheal bronchitis. The raymond berrios's cultures from Perm-A-Cath have been drawn. Will continue the current antibiotic regimen and follow up with infectious disease for recommendations. 6. Chronic respiratory failure. Status post trach. Continue local trach care. Continue trach mask . Follow up with pulmonary. 7. Dysphagia. Status post PEG. Continue tube feeding. 8. Diabetes. Continue the current insulin regimen. 9. Chronic encephalopathy. No change. 10. Mild hyponatremia. Continue to monitor. 11. Seizure disorder. Continue medical management. 12. History of intracranial bleed. Status post craniotomy. Dictated By: MARYURI WALLER/FRANCES Conf#: [id number] [facility]#: [id number]
[2016-08-31] MEDS: LEVETIRACETAM (100 MG/ML) 5ML CUP GTB SCH ×2 (09:57→21:18)
[2016-08-31] MEDS: SENNA TAB GTB SCH (09:57)
[2016-08-31] MEDS: SEVELAMER CARBONATE 0.8 GM PKT GTB SCH ×3 (09:57→17:43)
[2016-08-31] MEDS: MULTIVIT/CA CARB/B CMPLX/FA TAB GTB SCH (09:58)
[2016-08-31] MEDS: CEFEPIME 1GM/50 ML (PMX) 50 ML IVPB SCH (09:58)
[2016-08-31] MEDS: FOLIC ACID 1 MG TAB GTB SCH (09:58)
--- NOTE | 2016-08-31 10:33 | CONS ---
Date/Time of Note Date/Time of Note DATE: 08/31/16 TIME: 10:29 Assessment/Plan Assessment/Plan Chief Complaint/Hosp Course assessment/impression - sepsis due to HCAP - HCAP due to pseudomonas - congested cough and clear CXR also raises a concern for viral bronchitis - ESRD on HD - h/o CVA s/p craniotomy - DM recommendations - pending: final results of sputum culture, blood cultures from portacath, influenza A/B by EIA and influenza by PCR - Pt's RN today will follow up on the viral respiratory panel (it was reportedly sent but has not been in process yet) - continue empiric IV vancomycin and cefepime (08/29/2016-); will adjust the antibiotics based on the final culture results - keep Pt on droplet precautions until respiratory viruses are ruled out ( ordered on 08/30/2016) management d/w Pt's RN Problems: Consultation Date/Type/Reason Admit Date/Time Aug 29, 2016 at 16:21 Initial Consult Date 08/30/16 Type of Consultation: ID Referring Provider: CNADY JUAREZ 24 HR Interval Summary Subjective hx not possible: pt non-verbal Exam/Review of Systems Vital Signs Vitals Vital Signs Date Time Temp Pulse Resp B/P Pulse Ox O2 Delivery O2 Flow Rate FiO2 08/31/16 10:16 100 08/31/16 08:56 5.0 28 08/31/16 08:56 18 97 Aerosol T Tube 08/31/16 07:30 99.5 111/56 Intake and Output 08/30/16 08/30/16 08/31/16 15:00 23:00 07:00 Intake Total 400 ml 870 ml Output Total 2700 ml Balance -2300 ml 870 ml Exam Constitutional: non-verbal Psych: confusion Head: normocephalic, other (s/p craniotomy) Eyes: nl conjunctiva, nl lids, nl sclera, No icteric ENMT: nl external ears & nose, nl nasal mucosa & septum Neck: other (trach) Respiratory: congested cough, crackles/rales Cardiovascular: nl pulses, regular rate and rhythm Gastrointestinal: non-tender, other (GT in place), soft, No distended, No tender Musculoskeletal: nl extremities to inspection Extremities: No edema Neurological: unresponsive Skin: nl turgor Results Result Diagram: 08/31/16 0537 08/31/16 0537 Results 24 hrs Laboratory Tests Test 08/30/16 12:13 08/30/16 17:58 08/30/16 21:54 08/31/16 00:51 Bedside Glucose 203 194 236 H 199 Test 08/31/16 05:37 08/31/16 05:38 White Blood Count 8.0 Red Blood Count 3.74 L Hemoglobin 10.6 L Hematocrit 34.2 L Mean Corpuscular Volume 91.4 Mean Corpuscular Hemoglobin 28.3 L Mean Corpuscular Hemoglobin Concent 31.0 L Red Cell Distribution Width 16.6 H Platelet Count 298 Mean Platelet Volume 9.7 Neutrophils % 70.6 Lymphocytes % 13.2 L Monocytes % 12.0 H Eosinophils % 2.0 Basophils % 0.6 Nucleated Red Blood Cells % 0.0 Neutrophils # 5.7 Lymphocytes # 1.1 Monocytes # 1.0 H Eosinophils # 0.2 Basophils # 0.1 Nucleated Red Blood Cells # 0.0 Sodium Level 136 Potassium Level 3.9 Chloride Level 94 L Carbon Dioxide Level 26 Anion Gap 20 H Blood Urea Nitrogen 63 H Creatinine 5.14 #H Glucose Level 216 Calcium Level 9.6 Random Vancomycin Level 10.9 Bedside Glucose 222 H Medications Medications Current Medications Amlodipine Besylate (Norvasc) 5 mg DAILY GTB Last administered on 08/30/16 09: 46; Admin Dose 5 MG; Start 08/30/16 at 09:00 Clonidine (Catapres) 0.1 mg DAILY PRN GTB ELEVATED SYSTOLIC BP; Start 08/29/16 at 23:00 Doxazosin Mesylate (Cardura) 2 mg QHS GTB Last administered on 08/31/16 00:46 ; Admin Dose 2 MG; Start 08/30/16 at 21:00 Folic Acid (Folic Acid) 1 mg DAILY GTB Last administered on 08/31/16 09:58; Admin Dose 1 MG; Start 08/30/16 at 09:00 Hydralazine HCl (Apresoline) 50 mg Q8 GTB Last administered on 08/31/16 05:47 ; Admin Dose 50 MG; Start 08/30/16 at 06:00 Levetiracetam (Keppra Liquid) 500 mg BID GTB Last administered on 08/31/16 09: 57; Admin Dose 500 MG; Start 08/30/16 at 09:00 Metoprolol Tartrate (Lopressor) 25 mg BID GTB Last administered on 08/30/16 21 :52; Admin Dose 25 MG; Start 08/30/16 at 09:00 Multivit/Ca Carb/ B Cmplx/FA/Prenat (Leah-Juan Jose) 1 tab DAILY GTB Last administered on 08/31/16 09:58; Admin Dose 1 TAB; Start 08/30/16 at 09:00 Ondansetron HCl (Zofran Tab) 4 mg Q6H PRN GTB NAUSEA AND/OR VOMITING; Start at 23:00 Senna (Senokot) 1 tab DAILY GTB Last administered on 08/31/16 09:57; Admin Dose 1 TAB; Start 08/30/16 at 09:00 Zolpidem Tartrate (Ambien) 5 mg QHS PRN GTB INSOMNIA; Start 08/29/16 at 23:00 Insulin Detemir (Levemir) 8 unit HS SC Last administered on 08/30/16 21:57; Admin Dose 8 UNIT; Start 08/30/16 at 21:00 Lansoprazole (Prevacid) 30 mg DAILY@06 GTB Last administered on 08/31/16 05:40 ; Admin Dose 30 MG; Start 08/30/16 at 06:00 Acetaminophen (Tylenol Liquid) 650 mg Q4H PRN GTB PAIN AND OR ELEVATED TEMP Last administered on 08/31/16 05:52; Admin Dose 650 MG; Start 08/29/16 at 23:00 Insulin Aspart NOVOLOG *MILD* ALGORI... Q6 SC Last administered on 08/31/16 05 :42; Admin Dose 3 UNIT; Start 08/30/16 at 00:00 Cefepime HCl (Maxipime 1gm/50 ml (Pmx)) 50 ml @ 100 mls/hr Q24H IVPB Last administered on 08/31/16 09:58; Admin Dose 100 MLS/HR; Start 08/31/16 at 09:00 Miscellaneous Information 1 ea NOTE XX ; Start 08/31/16 at 07:00 Glucose (Glutose) 15 gm Q15M PRN PO DECREASED GLUCOSE; Start 08/31/16 at 07:00 Glucose (Glutose) 22.5 gm Q15M PRN PO DECREASED GLUCOSE; Start 08/31/16 at 07: 00 Dextrose (D50w Syringe) 25 ml Q15M PRN IV DECREASED GLUCOSE; Start 08/31/16 at 07:00 Dextrose (D50w Syringe) 50 ml Q15M PRN IV DECREASED GLUCOSE; Start 08/31/16 at 07:00 Glucagon (Glucagen) 1 mg Q15M PRN IM DECREASED GLUCOSE; Start 08/31/16 at 07:00 Glucose (Glutose) 15 gm Q15M PRN BUCCAL DECREASED GLUCOSE; Start 08/31/16 at 07 :00 ESTRELLITA ZAMBRANO M.D. Aug 31, 2016 10:32
--- NOTE | 2016-08-31 10:54 | CONS ---
Date/Time of Note Date/Time of Note DATE: 08/31/16 TIME: 10:50 Assessment/Plan Assessment/Plan Additional Assessment/Plan Chest x-ray was reviewed from yesterday which is essentially clear. Assessment recommendations; 1. Patient admitted for fever etiology is unclear. 2. End-stage renal disease, hypertension, diabetes, seizure disorder, CVA, history of intracranial bleed. 3. Chronic respiratory failure, patient maintained on T-piece. Continue current treatment. Awaiting blood cultures. Will obtain follow-up chest x-ray. Consultation Date/Type/Reason Admit Date/Time Aug 29, 2016 at 16:21 Date of Consultation: Aug 31, 2016 Type of Consultation: Pulmonary Reason for Consultation Pulmonary consultations requested for evaluation of fever possibly pneumonia. History presenting any; patient is a 66-year-old male who was [facility]. Patient is a poor historian however he is awake and follows simple commands history was obtained from medical records. Past medical history; 1. 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 2. Chronic renal failure on hemodialysis. 3. Hypertension. 4. Seizure disorder. 5. Hypertension. 6. Diabetes. 7. Status post tracheostomy and G-tube placement. 8. Patient is currently not ventilator dependent. Medications; were reviewed. Next Allergies; none. Social history; patient has a remote history of smoking. Family history; patient is has a supportive family. Occupational history; patient currently on disability. Review of systems; very limited review of system could be obtained patient denies any shortness of breath any chest pain any abdominal pain. General exam; elderly male, on tracheostomy awake and alert. Psychological: confusion Past Medical History Medical History: diabetes, hypertension, renal disease Past Surgical History Past Surgical Hx: other (craniotomy, G tube, tracheostomy) Social History Smoking Status: Never smoker Exam/Review of Systems Vital Signs Vitals Vital Signs Date Time Temp Pulse Resp B/P Pulse Ox O2 Delivery O2 Flow Rate FiO2 08/31/16 10:16 100 08/31/16 08:56 5.0 28 08/31/16 08:56 18 97 Aerosol T Tube 08/31/16 07:30 99.5 111/56 Intake and Output 08/30/16 08/30/16 08/31/16 15:00 23:00 07:00 Intake Total 400 ml 870 ml Output Total 2700 ml Balance -2300 ml 870 ml Exam HEENT examination; supple neck, no JVD. No lymphadenopathy. Midline trachea. No thyromegaly. Tracheostomy placed with clean insertion site. Pupils are midsize and reactive to light bilaterally. Patient has fair dentition. Pharynx is clear. No neck bruits. No thyromegaly. Chest examination; clear to auscultation. S1-S2 audible, no murmurs. Regular rhythm. Abdomen examination; soft, G-tube in place. Nontender. No organomegaly. Bowel sounds audible. Extremity examination; no peripheral edema. BLUEPRINTER examination: Patient is awake alert follows simple commands and has dense left hemiplegia. Results Result Diagram: 08/31/16 0537 08/31/16 0537 Results 24 hrs Laboratory Tests Test 08/30/16 12:13 08/30/16 17:58 08/30/16 21:54 08/31/16 00:51 Bedside Glucose 203 194 236 H 199 Test 08/31/16 05:37 08/31/16 05:38 White Blood Count 8.0 Red Blood Count 3.74 L Hemoglobin 10.6 L Hematocrit 34.2 L Mean Corpuscular Volume 91.4 Mean Corpuscular Hemoglobin 28.3 L Mean Corpuscular Hemoglobin Concent 31.0 L Red Cell Distribution Width 16.6 H Platelet Count 298 Mean Platelet Volume 9.7 Neutrophils % 70.6 Lymphocytes % 13.2 L Monocytes % 12.0 H Eosinophils % 2.0 Basophils % 0.6 Nucleated Red Blood Cells % 0.0 Neutrophils # 5.7 Lymphocytes # 1.1 Monocytes # 1.0 H Eosinophils # 0.2 Basophils # 0.1 Nucleated Red Blood Cells # 0.0 Sodium Level 136 Potassium Level 3.9 Chloride Level 94 L Carbon Dioxide Level 26 Anion Gap 20 H Blood Urea Nitrogen 63 H Creatinine 5.14 #H Glucose Level 216 Calcium Level 9.6 Random Vancomycin Level 10.9 Bedside Glucose 222 H Medications Medications Current Medications Amlodipine Besylate (Norvasc) 5 mg DAILY GTB Last administered on 08/30/16t 09: 46; Admin Dose 5 MG; Start 08/30/16 at 09:00 Clonidine (Catapres) 0.1 mg DAILY PRN GTB ELEVATED SYSTOLIC BP; Start 08/29/16 at 23:00 Doxazosin Mesylate (Cardura) 2 mg QHS GTB Last administered on 08/31/16 00:46 ; Admin Dose 2 MG; Start 08/30/16 at 21:00 Folic Acid (Folic Acid) 1 mg DAILY GTB Last administered on 08/31/16 09:58; Admin Dose 1 MG; Start 08/30/16 at 09:00 Hydralazine HCl (Apresoline) 50 mg Q8 GTB Last administered on 08/31/16 05:47 ; Admin Dose 50 MG; Start 08/30/16 at 06:00 Levetiracetam (Keppra Liquid) 500 mg BID GTB Last administered on 08/31/16 09: 57; Admin Dose 500 MG; Start 08/30/16 at 09:00 Metoprolol Tartrate (Lopressor) 25 mg BID GTB Last administered on 08/30/16 21 :52; Admin Dose 25 MG; Start 08/30/16 at 09:00 Multivit/Ca Carb/ B Cmplx/FA/Prenat (Leah-Juan Jose) 1 tab DAILY GTB Last administered on 08/31/16 09:58; Admin Dose 1 TAB; Start 08/30/16 at 09:00 Ondansetron HCl (Zofran Tab) 4 mg Q6H PRN GTB NAUSEA AND/OR VOMITING; Start at 23:00 Senna (Senokot) 1 tab DAILY GTB Last administered on 08/31/16 09:57; Admin Dose 1 TAB; Start 08/30/16 at 09:00 Zolpidem Tartrate (Ambien) 5 mg QHS PRN GTB INSOMNIA; Start 08/29/16 at 23:00 Insulin Detemir (Levemir) 8 unit HS SC Last administered on 08/30/16 21:57; Admin Dose 8 UNIT; Start 08/30/16 at 21:00 Lansoprazole (Prevacid) 30 mg DAILY@06 GTB Last administered on 08/31/16 05:40 ; Admin Dose 30 MG; Start 08/30/16 at 06:00 Acetaminophen (Tylenol Liquid) 650 mg Q4H PRN GTB PAIN AND OR ELEVATED TEMP Last administered on 08/31/16 05:52; Admin Dose 650 MG; Start 08/29/16 at 23:00 Insulin Aspart NOVOLOG *MILD* ALGORI... Q6 SC Last administered on 08/31/16 05 :42; Admin Dose 3 UNIT; Start 08/30/16 at 00:00 Cefepime HCl (Maxipime 1gm/50 ml (Pmx)) 50 ml @ 100 mls/hr Q24H IVPB Last administered on 08/31/16 09:58; Admin Dose 100 MLS/HR; Start 08/31/16 at 09:00 Miscellaneous Information 1 ea NOTE XX ; Start 08/31/16 at 07:00 Glucose (Glutose) 15 gm Q15M PRN PO DECREASED GLUCOSE; Start 08/31/16 at 07:00 Glucose (Glutose) 22.5 gm Q15M PRN PO DECREASED GLUCOSE; Start 08/31/16 at 07: 00 Dextrose (D50w Syringe) 25 ml Q15M PRN IV DECREASED GLUCOSE; Start 08/31/16 at 07:00 Dextrose (D50w Syringe) 50 ml Q15M PRN IV DECREASED GLUCOSE; Start 08/31/16 at 07:00 Glucagon (Glucagen) 1 mg Q15M PRN IM DECREASED GLUCOSE; Start 08/31/16 at 07:00 Glucose (Glutose) 15 gm Q15M PRN BUCCAL DECREASED GLUCOSE; Start 08/31/16 at 07 :00 KATHERIN AGUIRRE Aug 31, 2016 10:54
[2016-08-31] MEDS ORDERED: VANCOMYCIN 1 GM in NS 250 ML IVPB SCH (12:00)
--- NOTE | 2016-08-31 14:06 | PN ---
Date/Time of Note Date/Time of Note DATE: 08/31/16 TIME: 13:59 Assessment/Plan VTE Prophylaxis VTE Prophylaxis Intervention: SCD's Lines/Catheters IV Catheter Type (from [facility]): Saline Lock Urinary Cath still in place: No Assessment/Plan Assessment/Plan - Sepsis secondary to HCAP. Continue antibiotics per ID. Dr. Benjy lang is following in infection disease consultation. - HCAP. Sputum cultures positive for Pseudomonas. - Chronic respiratory failure with tracheostomy, currently on T-piece. Dr. Freitas is following in pulmonology consultation - End-stage renal disease on hemodialysis. Continue hemodialysis per nephrology. Dr. Sales is following in nephrology consultation. - Hypertension. Continue metoprolol and hydralazine. - History of nontraumatic intracranial bleed, status post craniotomy. - Possible seizure disorder. Continue Keppra. - Diabetes. Continue Levemir and NovoLog per mild algorithm sliding scale. - Anemia of chronic kidney disease. Further recommendations based on clinical course. Plan of care discussed with Dr. Godinez. Subjective 24 Hr Interval Summary Free Text/Dictation Patient is finished hemodialysis, awake, maintains eye contact does not follow commands, copious secretions from tracheostomy. Exam/Review of Systems Vital Signs Vitals Vital Signs Date Time Temp Pulse Resp B/P Pulse Ox O2 Delivery O2 Flow Rate FiO2 08/31/16 12:04 100 08/31/16 12:02 14 08/31/16 11:40 99 Aerosol 5.0 28 T Tube 08/31/16 07:30 99.5 111/56 Intake and Output 08/30/16 08/30/16 08/31/16 15:00 23:00 07:00 Intake Total 400 ml 870 ml Output Total 2700 ml Balance -2300 ml 870 ml Exam Constitutional: alert, oriented Psych: no complaints Head: atraumatic, normocephalic Eyes: nl conjunctiva ENMT: nl external ears & nose Neck: other (Tracheostomy), supple Respiratory: diminished breath sounds Cardiovascular: regular rate and rhythm Gastrointestinal: non-tender, other (G-tube), soft Musculoskeletal: nl extremities to inspection Extremities: normal pulses Neurological: confused Additional Comments Right chest permacath Results Result Diagram: 08/31/16 0537 08/31/16 0537 Results 24 hrs Laboratory Tests Test 08/30/16 17:58 08/30/16 21:54 08/31/16 00:51 08/31/16 05:37 Bedside Glucose 194 236 H 199 White Blood Count 8.0 Red Blood Count 3.74 L Hemoglobin 10.6 L Hematocrit 34.2 L Mean Corpuscular Volume 91.4 Mean Corpuscular Hemoglobin 28.3 L Mean Corpuscular Hemoglobin Concent 31.0 L Red Cell Distribution Width 16.6 H Platelet Count 298 Mean Platelet Volume 9.7 Neutrophils % 70.6 Lymphocytes % 13.2 L Monocytes % 12.0 H Eosinophils % 2.0 Basophils % 0.6 Nucleated Red Blood Cells % 0.0 Neutrophils # 5.7 Lymphocytes # 1.1 Monocytes # 1.0 H Eosinophils # 0.2 Basophils # 0.1 Nucleated Red Blood Cells # 0.0 Sodium Level 136 Potassium Level 3.9 Chloride Level 94 L Carbon Dioxide Level 26 Anion Gap 20 H Blood Urea Nitrogen 63 H Creatinine 5.14 #H Glucose Level 216 Calcium Level 9.6 Random Vancomycin Level 10.9 Test 08/31/16 05:38 08/31/16 12:22 Bedside Glucose 222 H 216 Medications Medications Current Medications Amlodipine Besylate (Norvasc) 5 mg DAILY GTB Last administered on 08/30/16 09: 46; Admin Dose 5 MG; Start 08/30/16 at 09:00 Clonidine (Catapres) 0.1 mg DAILY PRN GTB ELEVATED SYSTOLIC BP; Start 08/29/16 at 23:00 Doxazosin Mesylate (Cardura) 2 mg QHS GTB Last administered on 08/31/16 00:46 ; Admin Dose 2 MG; Start 08/30/16 at 21:00 Folic Acid (Folic Acid) 1 mg DAILY GTB Last administered on 08/31/16 09:58; Admin Dose 1 MG; Start 08/30/16 at 09:00 Hydralazine HCl (Apresoline) 50 mg Q8 GTB Last administered on 08/31/16 05:47 ; Admin Dose 50 MG; Start 08/30/16 at 06:00 Levetiracetam (Keppra Liquid) 500 mg BID GTB Last administered on 08/31/16 09: 57; Admin Dose 500 MG; Start 08/30/16 at 09:00 Metoprolol Tartrate (Lopressor) 25 mg BID GTB Last administered on 08/30/16 21 :52; Admin Dose 25 MG; Start 08/30/16 at 09:00 Multivit/Ca Carb/ B Cmplx/FA/Prenat (Leah-Juan Jose) 1 tab DAILY GTB Last administered on 08/31/16 09:58; Admin Dose 1 TAB; Start 08/30/16 at 09:00 Ondansetron HCl (Zofran Tab) 4 mg Q6H PRN GTB NAUSEA AND/OR VOMITING; Start at 23:00 Senna (Senokot) 1 tab DAILY GTB Last administered on 08/31/16 09:57; Admin Dose 1 TAB; Start 08/30/16 at 09:00 Zolpidem Tartrate (Ambien) 5 mg QHS PRN GTB INSOMNIA; Start 08/29/16 at 23:00 Insulin Detemir (Levemir) 8 unit HS SC Last administered on 08/30/16 21:57; Admin Dose 8 UNIT; Start 08/30/16 at 21:00 Lansoprazole (Prevacid) 30 mg DAILY@06 GTB Last administered on 08/31/16 05:40 ; Admin Dose 30 MG; Start 08/30/16 at 06:00 Acetaminophen (Tylenol Liquid) 650 mg Q4H PRN GTB PAIN AND OR ELEVATED TEMP Last administered on 08/31/16 05:52; Admin Dose 650 MG; Start 08/29/16 at 23:00 Insulin Aspart NOVOLOG *MILD* ALGORI... Q6 SC Last administered on 08/31/16 12 :35; Admin Dose 2 UNIT; Start 08/30/16 at 00:00 Cefepime HCl (Maxipime 1gm/50 ml (Pmx)) 50 ml @ 100 mls/hr Q24H IVPB Last administered on 08/31/16 09:58; Admin Dose 100 MLS/HR; Start 08/31/16 at 09:00 Miscellaneous Information 1 ea NOTE XX ; Start 08/31/16 at 07:00 Glucose (Glutose) 15 gm Q15M PRN PO DECREASED GLUCOSE; Start 08/31/16 at 07:00 Glucose (Glutose) 22.5 gm Q15M PRN PO DECREASED GLUCOSE; Start 08/31/16 at 07: 00 Dextrose (D50w Syringe) 25 ml Q15M PRN IV DECREASED GLUCOSE; Start 08/31/16 at 07:00 Dextrose (D50w Syringe) 50 ml Q15M PRN IV DECREASED GLUCOSE; Start 08/31/16 at 07:00 Glucagon (Glucagen) 1 mg Q15M PRN IM DECREASED GLUCOSE; Start 08/31/16 at 07:00 Glucose 15 gm 15 gm Q15M PRN BUCCAL DECREASED GLUCOSE; Start 08/31/16 at 07:00 Vancomycin HCl (Vancocin) 250 ml @ 125 mls/hr ONCE IVPB Last administered on t 12:27; Admin Dose 125 MLS/HR; Start 08/31/16 at 12:00; Stop 08/31/16 at 14:00 NOELLE JIMENEZ Aug 31, 2016 14:06
--- NOTE | 2016-08-31 15:15 | RADRPT ---
PROCEDURE: XR Chest. CLINICAL INDICATION: Shortness of breath. The parasellar TECHNIQUE: A single portable view of the chest was obtained. COMPARISON: 08/29/2016 FINDINGS: A right-sided hemodialysis catheter and tracheostomy tube are unchanged. The cardiomediastinal silh ouette is within normal limits. The lungs and pleural spaces are clear. The soft tissues and osseo us structures are unremarkable. IMPRESSION: No acute cardiopulmonary disease. RPTAT: HPNM Physician Miguel Date Time Electronically viewed and signed by Yimi Salazar Physician on 08/31/2016 15:15 /
[2016-08-31] MEDS: INSULIN DETEMIR [LEVEMIR] 3ML CART SC SCH (21:21)
[2016-09-01] VITALS (13 sets, daily range): BP systolic 97–143; BP diastolic 50–60; PULSE 85–95; RESP 15–20
[2016-09-01] MEDS: INSULIN ASPART [NOVOLOG] 3 ML PEN SC SCH ×4 (00:19→17:32)
[2016-09-01] MEDS: LANSOPRAZOLE 30 MG CAP GTB SCH (06:16)
[2016-09-01] MEDS: MULTIVIT/CA CARB/B CMPLX/FA TAB GTB SCH (08:27)
[2016-09-01] MEDS: LEVETIRACETAM (100 MG/ML) 5ML CUP GTB SCH ×2 (08:27→21:05)
[2016-09-01] MEDS: SEVELAMER CARBONATE 0.8 GM PKT GTB SCH ×3 (08:27→17:28)
[2016-09-01] MEDS: SENNA TAB GTB SCH (08:28)
[2016-09-01] MEDS: FOLIC ACID 1 MG TAB GTB SCH (08:28)
[2016-09-01] MEDS: AMLODIPINE 5 MG TAB GTB SCH (08:28)
[2016-09-01] MEDS: CEFEPIME 1GM/50 ML (PMX) 50 ML IVPB SCH (08:28)
[2016-09-01] MEDS: METOPROLOL 25 MG TAB GTB SCH ×2 (08:28→21:00)
[2016-09-01] MEDS: LEVALBUTEROL (NEB) 0.63 MG/3 ML AMP NEB SCH ×4 (08:30→20:52)
--- NOTE | 2016-09-01 09:15 | CONS ---
Date/Time of Note Date/Time of Note DATE: 09/01/16 TIME: 09:14 Consult Date/Type/Reason Admit Date/Time Aug 29, 2016 at 16:21 Initial Consult Date 08/31/16 Type of Consultation: nephrology Ordering Provider: CANDY JUAREZ pt. seen and examined. s/p hd yesterday pe: HEENT: Head is normocephalic. NECK: Shows a trach. HEART: Regular rate. LUNGS: Showed diminished breath sounds at the base. ABDOMEN: Soft, nontender to palpation. No rebound or guarding. EXTREMITIES: Negative for clubbing or cyanosis. No edema. DERMATOLOGIC: No rashes. MUSCULOSKELETAL: Have no joint effusion. NEUROLOGIC: No change in exam. Objective Vital Signs Date Time Temp Pulse Resp B/P Pulse Ox O2 Delivery O2 Flow Rate FiO2 09/01/16 08:10 88 18 97 Aerosol 5.0 09/01/16 07:36 100.2 143/55 Intake and Output 08/31/16 08/31/16 09/01/16 15:00 23:00 07:00 Intake Total 400 ml 960 ml Output Total 2200 ml Balance -1800 ml 960 ml Results/Medications Result Diagram: 08/31/16 0537 08/31/16 0537 Results 24 hrs Laboratory Tests Test 08/31/16 12:22 08/31/16 17:40 08/31/16 20:58 09/01/16 00:15 Bedside Glucose 216 255 H 234 H 182 Test 09/01/16 06:14 Bedside Glucose 153 Medications Current Medications Amlodipine Besylate (Norvasc) 5 mg DAILY GTB Last administered on 09/01/16 08: 28; Admin Dose 5 MG; Start 08/30/16 at 09:00 Clonidine (Catapres) 0.1 mg DAILY PRN GTB ELEVATED SYSTOLIC BP; Start 08/29/16 at 23:00 Doxazosin Mesylate (Cardura) 2 mg QHS GTB Last administered on 08/31/16 21:19 ; Admin Dose 2 MG; Start 08/30/16 at 21:00 Folic Acid (Folic Acid) 1 mg DAILY GTB Last administered on 09/01/16 08:28; Admin Dose 1 MG; Start 08/30/16 at 09:00 Hydralazine HCl (Apresoline) 50 mg Q8 GTB Last administered on 08/31/16 15:49 ; Admin Dose 50 MG; Start 08/30/16 at 06:00 Levetiracetam (Keppra Liquid) 500 mg BID GTB Last administered on 09/01/16 08: 27; Admin Dose 500 MG; Start 08/30/16 at 09:00 Metoprolol Tartrate (Lopressor) 25 mg BID GTB Last administered on 09/01/16 08 :28; Admin Dose 25 MG; Start 08/30/16 at 09:00 Multivit/Ca Carb/ B Cmplx/FA/Prenat (Leah-Juan Jose) 1 tab DAILY GTB Last administered on 09/01/16 08:27; Admin Dose 1 TAB; Start 08/30/16 at 09:00 Ondansetron HCl (Zofran Tab) 4 mg Q6H PRN GTB NAUSEA AND/OR VOMITING; Start at 23:00 Senna (Senokot) 1 tab DAILY GTB Last administered on 09/01/16 08:28; Admin Dose 1 TAB; Start 08/30/16 at 09:00 Zolpidem Tartrate (Ambien) 5 mg QHS PRN GTB INSOMNIA; Start 08/29/16 at 23:00 Insulin Detemir (Levemir) 8 unit HS SC Last administered on 08/31/16 21:21; Admin Dose 8 UNIT; Start 08/30/16 at 21:00 Lansoprazole (Prevacid) 30 mg DAILY@06 GTB Last administered on 09/01/16 06:16 ; Admin Dose 30 MG; Start 08/30/16 at 06:00 Acetaminophen (Tylenol Liquid) 650 mg Q4H PRN GTB PAIN AND OR ELEVATED TEMP Last administered on 08/31/16 05:52; Admin Dose 650 MG; Start 08/29/16 at 23:00 Insulin Aspart NOVOLOG *MILD* ALGORI... Q6 SC Last administered on 09/01/16 06 :23; Admin Dose 1 UNIT; Start 08/30/16 at 00:00 Cefepime HCl (Maxipime 1gm/50 ml (Pmx)) 50 ml @ 100 mls/hr Q24H IVPB Last administered on 09/01/16 08:28; Admin Dose 100 MLS/HR; Start 08/31/16 at 09:00 Miscellaneous Information 1 ea NOTE XX ; Start 08/31/16 at 07:00 Glucose (Glutose) 15 gm Q15M PRN PO DECREASED GLUCOSE; Start 08/31/16 at 07:00 Glucose (Glutose) 22.5 gm Q15M PRN PO DECREASED GLUCOSE; Start 08/31/16 at 07: 00 Dextrose (D50w Syringe) 25 ml Q15M PRN IV DECREASED GLUCOSE; Start 08/31/16 at 07:00 Dextrose (D50w Syringe) 50 ml Q15M PRN IV DECREASED GLUCOSE; Start 08/31/16 at 07:00 Glucagon (Glucagen) 1 mg Q15M PRN IM DECREASED GLUCOSE; Start 08/31/16 at 07:00 Glucose (Glutose) 15 gm Q15M PRN BUCCAL DECREASED GLUCOSE; Start 08/31/16 at 07 :00 Assessment/Plan Chief Complaint/Hosp Course 1. End-stage renal disease. The patient is on dialysis Saturday, Saturday, Saturday. Had hemodialysis yesterday. -watch volume status, adjust meds, access care. 2. Anemia of chronic disease. Will continue to monitor H and H levels. Give Epogen. 3. Mineral bone disorder. Continue to monitor calcium and phosphorus levels. Continue phosphate binders. 4. Hypertension. Continue the current blood pressure regimen. 5. Sepsis. Underlying source unclear, possibly line infection versus tracheal bronchitis. The patient's cultures from Perm-A-Cath have been drawn. Will continue the current antibiotic regimen and follow up with infectious disease for recommendations. 6. Chronic respiratory failure. Status post trach. Continue local trach care. Continue trach mask. Follow up with pulmonary. 7. Dysphagia. Status post PEG. Continue tube feeding. 8. Diabetes. Continue the current insulin regimen. 9. Chronic encephalopathy. No change. 10. Mild hyponatremia. Continue to monitor. 11. Seizure disorder. Continue medical management. 12. History of intracranial bleed. Status post craniotomy. Problems: CHARLOTTE YOUNG MD Sep 01, 2016 09:15
--- NOTE | 2016-09-01 11:06 | CONS ---
CAMACHO MCKEON 09/01/16 1106: Date/Time of Note Date/Time of Note DATE: 09/01/16 TIME: 11:05 Assessment/Plan Assessment/Plan Additional Assessment/Plan - sepsis due to HCAP - HCAP due to pseudomonas - congested cough and clear CXR also raises a concern for viral bronchitis - ESRD on HD - h/o CVA s/p craniotomy - DM recommendations - pending: final results of sputum culture, blood cultures from portacat, influenza A/B by EIA and influenza by PCR - Pt's RN today will follow up on the viral respiratory panel (it was reportedly sent but has not been in process yet) - continue empiric IV vancomycin and cefepime (08/29/2016-); will adjust the antibiotics based on the final culture results - keep Pt on droplet precautions until respiratory viruses are ruled out ( ordered on 08/30/2016) d/w Dr Pa Consultation Date/Type/Reason Admit Date/Time Aug 29, 2016 at 16:21 Initial Consult Date 08/31/16 Type of Consultation: ID Referring Provider: CANDY JUAREZ 24 HR Interval Summary Free Text/Dictation d/w RN. Obtunded. Low grade fever 100.2 o/w no new events. SCx + pseudo sens to Zosyn. CXR clear. UCx neg. BCx NTD Subjective hx not possible: pt non-verbal Exam/Review of Systems Vital Signs Vitals Vital Signs Date Time Temp Pulse Resp B/P Pulse Ox O2 Delivery O2 Flow Rate FiO2 09/01/16 08:10 88 18 97 Aerosol 5.0 28 09/01/16 07:36 100.2 143/55 Intake and Output 08/31/16 08/31/16 09/01/16 15:00 23:00 07:00 Intake Total 400 ml 960 ml Output Total 2200 ml Balance -1800 ml 960 ml Exam Constitutional: frail Head: atraumatic, normocephalic Eyes: nl lids ENMT: nl external ears & nose Neck: other (trach--clean) Respiratory: clear to auscultation Cardiovascular: regular rate and rhythm Gastrointestinal: bowel sounds, non-tender, soft Genitourinary - Male: other ([place] cath--scant o/p) Results Result Diagram: 08/31/1637 08/31/1637 Results 24 hrs Laboratory Tests Test 08/31/16 12:22 08/31/16 17:40 08/31/16 20:58 09/01/16 00:15 Bedside Glucose 216 255 H 234 H 182 Test 09/01/16 06:14 Bedside Glucose 153 Medications Medications Current Medications Amlodipine Besylate (Norvasc) 5 mg DAILY GTB Last administered on 09/01/16 08: 28; Admin Dose 5 MG; Start 08/30/16 at 09:00 Clonidine (Catapres) 0.1 mg DAILY PRN GTB ELEVATED SYSTOLIC BP; Start 08/29/16 at 23:00 Doxazosin Mesylate (Cardura) 2 mg QHS GTB Last administered on 08/31/16 21:19 ; Admin Dose 2 MG; Start 08/30/16 at 21:00 Folic Acid (Folic Acid) 1 mg DAILY GTB Last administered on 09/01/16 08:28; Admin Dose 1 MG; Start 08/30/16 at 09:00 Hydralazine HCl (Apresoline) 50 mg Q8 GTB Last administered on 08/31/16 15:49 ; Admin Dose 50 MG; Start 08/30/16 at 06:00 Levetiracetam (Keppra Liquid) 500 mg BID GTB Last administered on 09/01/16 08: 27; Admin Dose 500 MG; Start 08/30/16 at 09:00 Metoprolol Tartrate (Lopressor) 25 mg BID GTB Last administered on 09/01/16 08 :28; Admin Dose 25 MG; Start 08/30/16 at 09:00 Multivit/Ca Carb/ B Cmplx/FA/Prenat (Leah-Juan Jose) 1 tab DAILY GTB Last administered on 09/01/16 08:27; Admin Dose 1 TAB; Start 08/30/16 at 09:00 Ondansetron HCl (Zofran Tab) 4 mg Q6H PRN GTB NAUSEA AND/OR VOMITING; Start at 23:00 Senna (Senokot) 1 tab DAILY GTB Last administered on 09/01/16 08:28; Admin Dose 1 TAB; Start 08/30/16 at 09:00 Zolpidem Tartrate (Ambien) 5 mg QHS PRN GTB INSOMNIA; Start 08/29/16 at 23:00 Insulin Detemir (Levemir) 8 unit HS SC Last administered on 08/31/16 21:21; Admin Dose 8 UNIT; Start 08/30/16 at 21:00 Lansoprazole (Prevacid) 30 mg DAILY@06 GTB Last administered on 09/01/16 06:16 ; Admin Dose 30 MG; Start 08/30/16 at 06:00 Acetaminophen (Tylenol Liquid) 650 mg Q4H PRN GTB PAIN AND OR ELEVATED TEMP Last administered on 08/31/16 05:52; Admin Dose 650 MG; Start 08/29/16 at 23:00 Insulin Aspart NOVOLOG *MILD* ALGORI... Q6 SC Last administered on 09/01/16 06 :23; Admin Dose 1 UNIT; Start 08/30/16 at 00:00 Cefepime HCl (Maxipime 1gm/50 ml (Pmx)) 50 ml @ 100 mls/hr Q24H IVPB Last administered on 09/01/16 08:28; Admin Dose 100 MLS/HR; Start 08/31/16 at 09:00 Miscellaneous Information 1 ea NOTE XX ; Start 08/31/16 at 07:00 Glucose (Glutose) 15 gm Q15M PRN PO DECREASED GLUCOSE; Start 08/31/16 at 07:00 Glucose (Glutose) 22.5 gm Q15M PRN PO DECREASED GLUCOSE; Start 08/31/16 at 07: 00 Dextrose (D50w Syringe) 25 ml Q15M PRN IV DECREASED GLUCOSE; Start 08/31/16 at 07:00 Dextrose (D50w Syringe) 50 ml Q15M PRN IV DECREASED GLUCOSE; Start 08/31/16 at 07:00 Glucagon (Glucagen) 1 mg Q15M PRN IM DECREASED GLUCOSE; Start 08/31/16 at 07:00 Glucose (Glutose) 15 gm Q15M PRN BUCCAL DECREASED GLUCOSE; Start 08/31/16 at 07 :00 ESTRELLITA PA M.D. 09/03/16 1116: Assessment/Plan Assessment/Plan Additional Assessment/Plan Ember attestation: I discussed the management with PHIL Mckeon and agree with above Exam/Review of Systems Results Result Diagram: 08/31/16 0537 08/31/16 0537 CAMACHO MCKEON Sep 01, 2016 11:06 ESTRELLITA PA M.D. September 03, 2016 11:16
--- NOTE | 2016-09-01 11:18 | PN ---
Date/Time of Note Date/Time of Note DATE: 09/01/16 TIME: 11:18 Assessment/Plan VTE Prophylaxis VTE Prophylaxis Intervention: other Lines/Catheters [facility] Saline Lock Urinary Cath still in place: No Assessment/Plan Chief Complaint/Hosp Course - Sepsis secondary to HCAP. Continue antibiotics per ID. Dr. Benjy lang is following in infection disease consultation. - HCAP. Sputum cultures positive for Pseudomonas. - Chronic respiratory failure with tracheostomy, currently on T-piece. Dr. Freitas is following in pulmonology consultation - End-stage renal disease on hemodialysis. Continue hemodialysis per nephrology. Dr. Sales is following in nephrology consultation. - Hypertension. Continue metoprolol and hydralazine. - History of nontraumatic intracranial bleed, status post craniotomy. - Possible seizure disorder. Continue Keppra. - Diabetes. Continue Levemir and NovoLog per mild algorithm sliding scale. - Anemia of chronic kidney disease. Problems: Subjective 24 Hr Interval Summary Free Text/Dictation Patient has no complaints Exam/Review of Systems Vital Signs Vitals Vital Signs Date Time Temp Pulse Resp B/P Pulse Ox O2 Delivery O2 Flow Rate FiO2 09/01/16 08:10 88 18 97 Aerosol 5.0 09/01/16 07:36 100.2 143/55 Intake and Output 08/31/16 08/31/16 09/01/16 15:00 23:00 07:00 Intake Total 400 ml 960 ml Output Total 2200 ml Balance -1800 ml 960 ml Exam Constitutional: well developed Head: atraumatic, normocephalic Neck: supple Respiratory: diminished breath sounds Cardiovascular: regular rate and rhythm Gastrointestinal: non-tender, soft Extremities: normal pulses Results Result Diagram: 08/31/16 0537 08/31/16 0537 Results 24 hrs Laboratory Tests Test 08/31/16 12:22 08/31/16 17:40 08/31/16 20:58 09/01/16 00:15 Bedside Glucose 216 255 H 234 H 182 Test 09/01/16 06:14 Bedside Glucose 153 Medications Medications Current Medications Amlodipine Besylate (Norvasc) 5 mg DAILY GTB Last administered on 09/01/16t 08: 28; Admin Dose 5 MG; Start 08/30/16 at 09:00 Clonidine (Catapres) 0.1 mg DAILY PRN GTB ELEVATED SYSTOLIC BP; Start 08/29/16 at 23:00 Doxazosin Mesylate (Cardura) 2 mg QHS GTB Last administered on 08/31/16 21:19 ; Admin Dose 2 MG; Start 08/30/16 at 21:00 Folic Acid (Folic Acid) 1 mg DAILY GTB Last administered on 09/01/16 08:28; Admin Dose 1 MG; Start 08/30/16 at 09:00 Hydralazine HCl (Apresoline) 50 mg Q8 GTB Last administered on 08/31/16 15:49 ; Admin Dose 50 MG; Start 08/30/16 at 06:00 Levetiracetam (Keppra Liquid) 500 mg BID GTB Last administered on 09/01/16 08: 27; Admin Dose 500 MG; Start 08/30/16 at 09:00 Metoprolol Tartrate (Lopressor) 25 mg BID GTB Last administered on 09/01/16 08 :28; Admin Dose 25 MG; Start 08/30/16 at 09:00 Multivit/Ca Carb/ B Cmplx/FA/Prenat (Leah-Juan Jose) 1 tab DAILY GTB Last administered on 09/01/16 08:27; Admin Dose 1 TAB; Start 08/30/16 at 09:00 Ondansetron HCl (Zofran Tab) 4 mg Q6H PRN GTB NAUSEA AND/OR VOMITING; Start at 23:00 Senna (Senokot) 1 tab DAILY GTB Last administered on 09/01/16 08:28; Admin Dose 1 TAB; Start 08/30/16 at 09:00 Zolpidem Tartrate (Ambien) 5 mg QHS PRN GTB INSOMNIA; Start 08/29/16 at 23:00 Insulin Detemir (Levemir) 8 unit HS SC Last administered on 08/31/16 21:21; Admin Dose 8 UNIT; Start 08/30/16 at 21:00 Lansoprazole (Prevacid) 30 mg DAILY@06 GTB Last administered on 09/01/16 06:16 ; Admin Dose 30 MG; Start 08/30/16 at 06:00 Acetaminophen (Tylenol Liquid) 650 mg Q4H PRN GTB PAIN AND OR ELEVATED TEMP Last administered on 08/31/16 05:52; Admin Dose 650 MG; Start 08/29/16 at 23:00 Insulin Aspart NOVOLOG *MILD* ALGORI... Q6 SC Last administered on 09/01/16 06 :23; Admin Dose 1 UNIT; Start 08/30/16 at 00:00 Cefepime HCl (Maxipime 1gm/50 ml (Pmx)) 50 ml @ 100 mls/hr Q24H IVPB Last administered on 09/01/16 08:28; Admin Dose 100 MLS/HR; Start 08/31/16 at 09:00 Miscellaneous Information 1 ea NOTE XX ; Start 08/31/16 at 07:00 Glucose (Glutose) 15 gm Q15M PRN PO DECREASED GLUCOSE; Start 08/31/16 at 07:00 Glucose (Glutose) 22.5 gm Q15M PRN PO DECREASED GLUCOSE; Start 08/31/16 at 07: 00 Dextrose (D50w Syringe) 25 ml Q15M PRN IV DECREASED GLUCOSE; Start 08/31/16 at 07:00 Dextrose (D50w Syringe) 50 ml Q15M PRN IV DECREASED GLUCOSE; Start 08/31/16 at 07:00 Glucagon (Glucagen) 1 mg Q15M PRN IM DECREASED GLUCOSE; Start 08/31/16 at 07:00 Glucose (Glutose) 15 gm Q15M PRN BUCCAL DECREASED GLUCOSE; Start 08/31/16 at 07 :00 ARY ROMAN Sep 01, 2016 11:18
[2016-09-01] MEDS: DOXAZOSIN 2 MG TAB GTB SCH (21:00)
[2016-09-01] MEDS: INSULIN DETEMIR [LEVEMIR] 3ML CART SC SCH (21:11)
[2016-09-02] VITALS (12 sets, daily range): BP systolic 115–140; BP diastolic 55–63; PULSE 84–103; RESP 16–20
[2016-09-02] MEDS: INSULIN ASPART [NOVOLOG] 3 ML PEN SC SCH ×4 (00:42→17:32)
[2016-09-02] MEDS: LANSOPRAZOLE 30 MG CAP GTB SCH (05:53)
[2016-09-02] MEDS: LEVALBUTEROL (NEB) 0.63 MG/3 ML AMP NEB SCH ×4 (08:06→20:26)
--- NOTE | 2016-09-02 08:35 | CONS ---
Date/Time of Note Date/Time of Note DATE: 09/02/16 TIME: 08:34 Consult Date/Type/Reason Admit Date/Time Aug 29, 2016 at 16:21 Initial Consult Date 08/31/16 Type of Consultation: nephrology Ordering Provider: CANDY JUAREZ pt. seen and examined. s/p hd fri no new events. pe: Constitutional: well developed Head: atraumatic, normocephalic Neck: supple Respiratory: diminished breath sounds Cardiovascular: regular rate and rhythm Gastrointestinal: non-tender, soft Extremities: normal pulses Objective Vital Signs Date Time Temp Pulse Resp B/P Pulse Ox O2 Delivery O2 Flow Rate FiO2 09/02/16 08:14 103 09/02/16 08:06 16 99 Aerosol 28 T Tube 09/02/16 07:36 99.2 138/63 09/02/16 05:36 5.0 Intake and Output 09/01/16 09/01/16 09/02/16 15:00 23:00 07:00 Intake Total 1010 ml 1030 ml Balance 1010 ml 1030 ml Results/Medications Result Diagram: 08/31/16 0537 08/31/16 0537 Results 24 hrs Laboratory Tests Test 09/01/16 11:26 09/01/16 17:27 09/01/16 20:57 09/02/16 00:34 Bedside Glucose 166 158 189 256 H Test 09/02/16 05:46 Bedside Glucose 233 H Medications Current Medications Amlodipine Besylate (Norvasc) 5 mg DAILY GTB Last administered on 09/01/16 08: 28; Admin Dose 5 MG; Start 08/30/16 at 09:00 Clonidine (Catapres) 0.1 mg DAILY PRN GTB ELEVATED SYSTOLIC BP; Start 08/29/16 at 23:00 Doxazosin Mesylate (Cardura) 2 mg QHS GTB Last administered on 08/31/16 21:19 ; Admin Dose 2 MG; Start 08/30/16 at 21:00 Folic Acid (Folic Acid) 1 mg DAILY GTB Last administered on 09/01/16 08:28; Admin Dose 1 MG; Start 08/30/16 at 09:00 Hydralazine HCl (Apresoline) 50 mg Q8 GTB Last administered on 09/02/16 05:54 ; Admin Dose 50 MG; Start 08/30/16 at 06:00 Levetiracetam (Keppra Liquid) 500 mg BID GTB Last administered on 09/01/16 21: 05; Admin Dose 500 MG; Start 08/30/16 at 09:00 Metoprolol Tartrate (Lopressor) 25 mg BID GTB Last administered on 09/01/16 08 :28; Admin Dose 25 MG; Start 08/30/16 at 09:00 Multivit/Ca Carb/ B Cmplx/FA/Prenat (Leah-Juan Jose) 1 tab DAILY GTB Last administered on 09/01/16 08:27; Admin Dose 1 TAB; Start 08/30/16 at 09:00 Ondansetron HCl (Zofran Tab) 4 mg Q6H PRN GTB NAUSEA AND/OR VOMITING; Start at 23:00 Senna (Senokot) 1 tab DAILY GTB Last administered on 09/01/16 08:28; Admin Dose 1 TAB; Start 08/30/16 at 09:00 Zolpidem Tartrate (Ambien) 5 mg QHS PRN GTB INSOMNIA; Start 08/29/16 at 23:00 Insulin Detemir (Levemir) 8 unit HS SC Last administered on 09/01/16 21:11; Admin Dose 8 UNIT; Start 08/30/16 at 21:00 Lansoprazole (Prevacid) 30 mg DAILY@06 GTB Last administered on 09/02/16 05:53 ; Admin Dose 30 MG; Start 08/30/16 at 06:00 Acetaminophen (Tylenol Liquid) 650 mg Q4H PRN GTB PAIN AND OR ELEVATED TEMP Last administered on 08/31/16 05:52; Admin Dose 650 MG; Start 08/29/16 at 23:00 Insulin Aspart NOVOLOG *MILD* ALGORI... Q6 SC Last administered on 09/02/16 05 :57; Admin Dose 3 UNIT; Start 08/30/16 at 00:00 Cefepime HCl (Maxipime 1gm/50 ml (Pmx)) 50 ml @ 100 mls/hr Q24H IVPB Last administered on 09/01/16 08:28; Admin Dose 100 MLS/HR; Start 08/31/16 at 09:00 Miscellaneous Information 1 ea NOTE XX ; Start 08/31/16 at 07:00 Glucose (Glutose) 15 gm Q15M PRN PO DECREASED GLUCOSE; Start 08/31/16 at 07:00 Glucose (Glutose) 22.5 gm Q15M PRN PO DECREASED GLUCOSE; Start 08/31/16 at 07: 00 Dextrose (D50w Syringe) 25 ml Q15M PRN IV DECREASED GLUCOSE; Start 08/31/16 at 07:00 Dextrose (D50w Syringe) 50 ml Q15M PRN IV DECREASED GLUCOSE; Start 08/31/16 at 07:00 Glucagon (Glucagen) 1 mg Q15M PRN IM DECREASED GLUCOSE; Start 08/31/16 at 07:00 Glucose (Glutose) 15 gm Q15M PRN BUCCAL DECREASED GLUCOSE; Start 08/31/16 at 07 :00 Assessment/Plan Chief Complaint/Hosp Course 1. End-stage renal disease. The patient is on dialysis Saturday, Saturday, Saturday. Had hemodialysis saturday -watch volume status, adjust meds, access care. 2. Anemia of chronic disease. Will continue to monitor H and H levels. Give Epogen. 3. Mineral bone disorder. Continue to monitor calcium and phosphorus levels. Continue phosphate binders. 4. Hypertension. Continue the current blood pressure regimen. 5. Sepsis. Underlying source unclear, possibly line infection versus tracheal bronchitis. The patient's cultures from Perm-A-Cath have been drawn. Will continue the current antibiotic regimen and follow up with infectious disease for recommendations. 6. Chronic respiratory failure. Status post trach. Continue local trach care. Continue trach mask. Follow up with pulmonary. 7. Dysphagia. Status post PEG. Continue tube feeding. 8. Diabetes. Continue the current insulin regimen. 9. Chronic encephalopathy. No change. 10. Mild hyponatremia. Continue to monitor. 11. Seizure disorder. Continue medical management. 12. History of intracranial bleed. Status post craniotomy. Problems: CHARLOTTE YOUNG MD Sep 02, 2016 08:35
[2016-09-02] MEDS: SEVELAMER CARBONATE 0.8 GM PKT GTB SCH ×3 (09:03→17:25)
[2016-09-02] MEDS: SENNA TAB GTB SCH (09:03)
[2016-09-02] MEDS: MULTIVIT/CA CARB/B CMPLX/FA TAB GTB SCH (09:03)
[2016-09-02] MEDS: CEFEPIME 1GM/50 ML (PMX) 50 ML IVPB SCH (09:03)
[2016-09-02] MEDS: AMLODIPINE 5 MG TAB GTB SCH (09:03)
[2016-09-02] MEDS: METOPROLOL 25 MG TAB GTB SCH ×2 (09:04→20:45)
[2016-09-02] MEDS: FOLIC ACID 1 MG TAB GTB SCH (09:04)
[2016-09-02] MEDS: LEVETIRACETAM (100 MG/ML) 5ML CUP GTB SCH ×2 (09:04→20:43)
--- NOTE | 2016-09-02 11:19 | PN ---
Date/Time of Note Date/Time of Note DATE: 09/02/16 TIME: 11:19 Assessment/Plan VTE Prophylaxis VTE Prophylaxis Intervention: other Lines/Catheters IV C[facility] Type ([facility] Saline Lock Urinary Cath still in place: No Assessment/Plan Chief Complaint/Hosp Course - Sepsis secondary to HCAP. Continue antibiotics per ID. Dr. Benjy lang is following in infection disease consultation. - HCAP. Sputum cultures positive for Pseudomonas. - Chronic respiratory failure with tracheostomy, currently on T-piece. Dr. Freitas is following in pulmonology consultation - End-stage renal disease on hemodialysis. Continue hemodialysis per nephrology. Dr. Sales is following in nephrology consultation. - Hypertension. Continue metoprolol and hydralazine. - History of nontraumatic intracranial bleed, status post craniotomy. - Possible seizure disorder. Continue Keppra. - Diabetes. Continue Levemir and NovoLog per mild algorithm sliding scale. - Anemia of chronic kidney disease. Problems: Subjective 24 Hr Interval Summary Free Text/Dictation Patient is not verbally responsive, appears comfortable Exam/Review of Systems Vital Signs Vitals Vital Signs Date Time Temp Pulse Resp B/P Pulse Ox O2 Delivery O2 Flow Rate FiO2 09/02/16 08:14 103 09/02/16 08:06 16 99 Aerosol 28 T Tube 09/02/16 07:36 99.2 138/63 09/02/16 05:36 5.0 Intake and Output 09/01/16 09/01/16 09/02/16 15:00 23:00 07:00 Intake Total 1010 ml 1030 ml Balance 1010 ml 1030 ml Exam Constitutional: well developed Head: atraumatic, normocephalic Neck: supple Respiratory: diminished breath sounds Cardiovascular: regular rate and rhythm Gastrointestinal: non-tender, soft Extremities: normal pulses Results Result Diagram: 08/31/16 0537 08/31/16 0537 Results 24 hrs Laboratory Tests Test 09/01/16 11:26 09/01/16 17:27 09/01/16 20:57 09/02/16 00:34 Bedside Glucose 166 158 189 256 H Test 09/02/16 05:46 Bedside Glucose 233 H Medications Medications Current Medications Amlodipine Besylate (Norvasc) 5 mg DAILY GTB Last administered on 09/02/16t 09: 03; Admin Dose 5 MG; Start 08/30/16 at 09:00 Clonidine (Catapres) 0.1 mg DAILY PRN GTB ELEVATED SYSTOLIC BP; Start 08/29/16 at 23:00 Doxazosin Mesylate (Cardura) 2 mg QHS GTB Last administered on 08/31/16 21:19 ; Admin Dose 2 MG; Start 08/30/16 at 21:00 Folic Acid (Folic Acid) 1 mg DAILY GTB Last administered on 09/02/16 09:04; Admin Dose 1 MG; Start 08/30/16 at 09:00 Hydralazine HCl (Apresoline) 50 mg Q8 GTB Last administered on 09/02/16 05:54 ; Admin Dose 50 MG; Start 08/30/16 at 06:00 Levetiracetam (Keppra Liquid) 500 mg BID GTB Last administered on 09/02/16 09: 04; Admin Dose 500 MG; Start 08/30/16 at 09:00 Metoprolol Tartrate (Lopressor) 25 mg BID GTB Last administered on 09/02/16 09 :04; Admin Dose 25 MG; Start 08/30/16 at 09:00 Multivit/Ca Carb/ B Cmplx/FA/Prenat (Leah-Juan Jose) 1 tab DAILY GTB Last administered on 09/02/16 09:03; Admin Dose 1 TAB; Start 08/30/16 at 09:00 Ondansetron HCl (Zofran Tab) 4 mg Q6H PRN GTB NAUSEA AND/OR VOMITING; Start at 23:00 Senna (Senokot) 1 tab DAILY GTB Last administered on 09/02/16 09:03; Admin Dose 1 TAB; Start 08/30/16 at 09:00 Zolpidem Tartrate (Ambien) 5 mg QHS PRN GTB INSOMNIA; Start 08/29/16 at 23:00 Insulin Detemir (Levemir) 8 unit HS SC Last administered on 09/01/16 21:11; Admin Dose 8 UNIT; Start 08/30/16 at 21:00 Lansoprazole (Prevacid) 30 mg DAILY@06 GTB Last administered on 09/02/16 05:53 ; Admin Dose 30 MG; Start 08/30/16 at 06:00 Acetaminophen (Tylenol Liquid) 650 mg Q4H PRN GTB PAIN AND OR ELEVATED TEMP Last administered on 08/31/16 05:52; Admin Dose 650 MG; Start 08/29/16 at 23:00 Insulin Aspart NOVOLOG *MILD* ALGORI... Q6 SC Last administered on 09/02/16 05 :57; Admin Dose 3 UNIT; Start 08/30/16 at 00:00 Cefepime HCl (Maxipime 1gm/50 ml (Pmx)) 50 ml @ 100 mls/hr Q24H IVPB Last administered on 09/02/16 09:03; Admin Dose 100 MLS/HR; Start 08/31/16 at 09:00 Miscellaneous Information 1 ea NOTE XX ; Start 08/31/16 at 07:00 Glucose (Glutose) 15 gm Q15M PRN PO DECREASED GLUCOSE; Start 08/31/16 at 07:00 Glucose (Glutose) 22.5 gm Q15M PRN PO DECREASED GLUCOSE; Start 08/31/16 at 07: 00 Dextrose (D50w Syringe) 25 ml Q15M PRN IV DECREASED GLUCOSE; Start 08/31/16 at 07:00 Dextrose (D50w Syringe) 50 ml Q15M PRN IV DECREASED GLUCOSE; Start 08/31/16 at 07:00 Glucagon (Glucagen) 1 mg Q15M PRN IM DECREASED GLUCOSE; Start 08/31/16 at 07:00 Glucose (Glutose) 15 gm Q15M PRN BUCCAL DECREASED GLUCOSE; Start 08/31/16 at 07 :00 ARY ROMAN Sep 02, 2016 11:19
[2016-09-02] MEDS: ACETAMINOPHEN 650MG/20.3ML CUP GTB PRN (11:36)
--- NOTE | 2016-09-02 18:12 | CONS ---
Date/Time of Note Date/Time of Note DATE: 09/02/16 TIME: 18:10 Assessment/Plan Assessment/Plan Chief Complaint/Hosp Course - sepsis due to HCAP - HCAP due to pseudomonas - congested cough and clear CXR also raises a concern for viral bronchitis - ESRD on HD - h/o CVA s/p craniotomy - DM recommendations - pending: respiratory viral panel and influenza by PCR - d/c empiric IV vancomycin - continue renally dosed cefepime (08/29/2016-) - keep Pt on droplet precautions until respiratory viruses are ruled out ( ordered on 08/30/2016, results are pending) Problems: Consultation Date/Type/Reason Admit Date/Time Aug 29, 2016 at 16:21 Initial Consult Date 08/30/16 Type of Consultation: ID Referring Provider: CANDY JUAREZ 24 HR Interval Summary Subjective hx not possible: pt non-verbal Exam/Review of Systems Vital Signs Vitals Vital Signs Date Time Temp Pulse Resp B/P Pulse Ox O2 Delivery O2 Flow Rate FiO2 09/02/16 16:32 91 20 99 Aerosol 28 T Tube 09/02/16 15:55 97.8 126/60 09/02/16 12:44 5.0 Intake and Output 09/01/16 09/01/16 09/02/16 15:00 23:00 07:00 Intake Total 1010 ml 1030 ml Balance 1010 ml 1030 ml Exam Constitutional: frail, non-verbal Psych: confusion Head: normocephalic Eyes: nl conjunctiva, nl lids, nl sclera ENMT: mucosa pink and moist Neck: other (trach) Respiratory: crackles/rales Cardiovascular: nl pulses, regular rate and rhythm Gastrointestinal: non-tender, other (GT), soft Genitourinary - Male: other (FC) Musculoskeletal: other (contractured), No swelling Extremities: No edema Neurological: unresponsive Results Result Diagram: 08/31/16 0537 08/31/16 0537 Results 24 hrs Laboratory Tests Test 09/01/16 20:57 09/02/16 00:34 09/02/16 05:46 09/02/16 11:33 Bedside Glucose 189 256 H 233 H 140 Test 09/02/16 17:23 Bedside Glucose 168 Medications Medications Current Medications Amlodipine Besylate (Norvasc) 5 mg DAILY GTB Last administered on 09/02/16 09: 03; Admin Dose 5 MG; Start 08/30/16 at 09:00 Clonidine (Catapres) 0.1 mg DAILY PRN GTB ELEVATED SYSTOLIC BP; Start 08/29/16 at 23:00 Doxazosin Mesylate (Cardura) 2 mg QHS GTB Last administered on 08/31/16 21:19 ; Admin Dose 2 MG; Start 08/30/16 at 21:00 Folic Acid (Folic Acid) 1 mg DAILY GTB Last administered on 09/02/16 09:04; Admin Dose 1 MG; Start 08/30/16 at 09:00 Hydralazine HCl (Apresoline) 50 mg Q8 GTB Last administered on 09/02/16 13:42 ; Admin Dose 50 MG; Start 08/30/16 at 06:00 Levetiracetam (Keppra Liquid) 500 mg BID GTB Last administered on 09/02/16 09: 04; Admin Dose 500 MG; Start 08/30/16 at 09:00 Metoprolol Tartrate (Lopressor) 25 mg BID GTB Last administered on 09/02/16 09 :04; Admin Dose 25 MG; Start 08/30/16 at 09:00 Multivit/Ca Carb/ B Cmplx/FA/Prenat (Leah-Juan Jose) 1 tab DAILY GTB Last administered on 09/02/16 09:03; Admin Dose 1 TAB; Start 08/30/16 at 09:00 Ondansetron HCl (Zofran Tab) 4 mg Q6H PRN GTB NAUSEA AND/OR VOMITING; Start at 23:00 Senna (Senokot) 1 tab DAILY GTB Last administered on 09/02/16 09:03; Admin Dose 1 TAB; Start 08/30/16 at 09:00 Zolpidem Tartrate (Ambien) 5 mg QHS PRN GTB INSOMNIA; Start 08/29/16 at 23:00 Insulin Detemir (Levemir) 8 unit HS SC Last administered on 09/01/16 21:11; Admin Dose 8 UNIT; Start 08/30/16 at 21:00 Lansoprazole (Prevacid) 30 mg DAILY@06 GTB Last administered on 09/02/16 05:53 ; Admin Dose 30 MG; Start 08/30/16 at 06:00 Acetaminophen (Tylenol Liquid) 650 mg Q4H PRN GTB PAIN AND OR ELEVATED TEMP Last administered on 09/02/16 11:36; Admin Dose 650 MG; Start 08/29/16 at 23:00 Insulin Aspart NOVOLOG *MILD* ALGORI... Q6 SC Last administered on 09/02/16 17 :32; Admin Dose 1 UNIT; Start 08/30/16 at 00:00 Cefepime HCl (Maxipime 1gm/50 ml (Pmx)) 50 ml @ 100 mls/hr Q24H IVPB Last administered on 09/02/16 09:03; Admin Dose 100 MLS/HR; Start 08/31/16 at 09:00 Miscellaneous Information 1 ea NOTE XX ; Start 08/31/16 at 07:00 Glucose (Glutose) 15 gm Q15M PRN PO DECREASED GLUCOSE; Start 08/31/16 at 07:00 Glucose (Glutose) 22.5 gm Q15M PRN PO DECREASED GLUCOSE; Start 08/31/16 at 07: 00 Dextrose (D50w Syringe) 25 ml Q15M PRN IV DECREASED GLUCOSE; Start 08/31/16 at 07:00 Dextrose (D50w Syringe) 50 ml Q15M PRN IV DECREASED GLUCOSE; Start 08/31/16 at 07:00 Glucagon (Glucagen) 1 mg Q15M PRN IM DECREASED GLUCOSE; Start 08/31/16 at 07:00 Glucose (Glutose) 15 gm Q15M PRN BUCCAL DECREASED GLUCOSE; Start 08/31/16 at 07 :00 Miscellaneous Information (*Rx Drug Level Order Reminder*) RANDOM VANCOMYCIN LEVEL ... ONCE ONCE XX ; Start 09/03/16 at 05:00; Stop 09/03/16 at 05:01 ESTRELLITA ZAMBRANO M.D. Sep 02, 2016 18:12
[2016-09-02] MEDS: DOXAZOSIN 2 MG TAB GTB SCH (20:44)
[2016-09-02] MEDS: INSULIN DETEMIR [LEVEMIR] 3ML CART SC SCH (20:47)
[2016-09-03] VITALS (22 sets, daily range): BP systolic 94–145; BP diastolic 50–65; PULSE 66–90; RESP 16–19
[2016-09-03] MEDS: INSULIN ASPART [NOVOLOG] 3 ML PEN SC SCH ×5 (00:23→23:34)
[2016-09-03] MEDS: LANSOPRAZOLE 30 MG CAP GTB SCH (05:44)
[2016-09-03 06:07] LABS: ADD SCAN DIFF NO
[2016-09-03 06:17] LABS: BASOPHIL # 0.1 10^3/ul (0.0-0.1); BASOPHILS % 0.5 % (0.0-2.0); EOSINOPHILS # 0.4 10^3/ul (0.0-0.5); EOSINOPHILS % 4.4 % (0.0-7.0); HEMATOCRIT 31.1 % (42.0-52.0); LYMPHOCYTES # 1.2 10^3/ul (0.8-2.9); LYMPHOCYTES % 12.4 % (15.0-51.0); MEAN CORPUSCULAR HEMOGLOBIN 28.8 pg (29.0-33.0); MEAN CORPUSCULAR HGB CONC 32.2 g/dl (32.0-37.0); MEAN CORPUSCULAR VOLUME 89.6 fl (82.0-101.0); MEAN PLATELET VOLUME 9.9 fl (7.4-10.4); MONOCYTE # 0.7 10^3/ul (0.3-0.9); MONOCYTES % 7.5 % (0.0-11.0); NEUTROPHIL # 7.1 10^3/ul (1.6-7.5); NEUTROPHILS % 73.6 % (39.0-77.0); PLATELET COUNT 358 10^3/UL (140-415); RED BLOOD COUNT 3.47 10^6/ul (4.70-6.10); RED CELL DISTRIBUTION WIDTH 16.8 % (11.5-14.5); WHITE BLOOD COUNT 9.6 10^3/ul (4.8-10.8)
[2016-09-03 06:34] LABS: POTASSIUM 3.9 mmol/L (3.5-5.1)
[2016-09-03 06:37] LABS: CREATININE 7.14 mg/dl (0.61-1.24)
[2016-09-03 06:38] LABS: CALCIUM 10.4 mg/dl (8.4-10.2)
[2016-09-03] MEDS: CEFEPIME 1GM/50 ML (PMX) 50 ML IVPB SCH (08:14)
[2016-09-03] MEDS: SEVELAMER CARBONATE 0.8 GM PKT GTB SCH ×3 (08:14→17:19)
[2016-09-03] MEDS: MULTIVIT/CA CARB/B CMPLX/FA TAB GTB SCH (08:15)
[2016-09-03] MEDS: METOPROLOL 25 MG TAB GTB SCH ×2 (08:15→21:15)
[2016-09-03] MEDS: LEVETIRACETAM (100 MG/ML) 5ML CUP GTB SCH ×2 (08:15→21:15)
[2016-09-03] MEDS: FOLIC ACID 1 MG TAB GTB SCH (08:15)
[2016-09-03] MEDS: AMLODIPINE 5 MG TAB GTB SCH (08:15)
[2016-09-03] MEDS: SENNA TAB GTB SCH (08:15)
[2016-09-03 08:26] LABS: INFLUENZA VIRUS A/B SOURCE NASOPHARYNGEAL
[2016-09-03] MEDS: LEVALBUTEROL (NEB) 0.63 MG/3 ML AMP NEB SCH ×4 (08:56→20:00)
--- NOTE | 2016-09-03 11:15 | CONS ---
Date/Time of Note Date/Time of Note DATE: 09/03/16 TIME: 11:14 Assessment/Plan Assessment/Plan Chief Complaint/Hosp Course - sepsis due to HCAP - HCAP due to pseudomonas - congested cough and clear CXR also raises a concern for viral bronchitis - ESRD on HD - h/o CVA s/p craniotomy - DM recommendations - pending: respiratory viral panel and influenza by PCR - continue renally dosed cefepime (08/29/2016-) for pseudomonas, plan for 2 weeks - keep Pt on droplet precautions until respiratory viruses are ruled out ( ordered on 08/30/2016, results are pending) management d/w Pt's RN Problems: Consultation Date/Type/Reason Admit Date/Time Aug 29, 2016 at 16:21 Initial Consult Date 08/30/16 Type of Consultation: ID Referring Provider: CANDY JUAREZ 24 HR Interval Summary Subjective hx not possible: pt non-verbal Exam/Review of Systems Vital Signs Vitals Vital Signs Date Time Temp Pulse Resp B/P Pulse Ox O2 Delivery O2 Flow Rate FiO2 09/03/16 08:57 99 5.0 28 09/03/16 08:57 75 18 Aerosol T Tube 09/03/16 07:36 97.2 131/60 Intake and Output 09/02/16 09/02/16 09/03/16 15:00 23:00 07:00 Intake Total 710 ml 730 ml Balance 710 ml 730 ml Exam Constitutional: frail, non-verbal Psych: confusion Head: atraumatic, normocephalic Eyes: nl conjunctiva, nl lids ENMT: nl external ears & nose Neck: other (trach) Respiratory: crackles/rales Cardiovascular: nl pulses, regular rate and rhythm Gastrointestinal: non-tender, other (GT), soft Genitourinary - Male: nl penis, nl scrotum Musculoskeletal: other (contractured) Extremities: No edema Neurological: lethargic Skin: nl turgor Results Result Diagram: 09/03/16 0600 09/03/16 0600 Results 24 hrs Laboratory Tests Test 09/02/16 11:33 09/02/16 17:23 09/03/16 00:18 09/03/16 05:43 Bedside Glucose 140 168 217 212 Test 09/03/16 06:00 White Blood Count 9.6 Red Blood Count 3.47 L Hemoglobin 10.0 L Hematocrit 31.1 L Mean Corpuscular Volume 89.6 Mean Corpuscular Hemoglobin 28.8 L Mean Corpuscular Hemoglobin Concent 32.2 Red Cell Distribution Width 16.8 H Platelet Count 358 # Mean Platelet Volume 9.9 Neutrophils % 73.6 Lymphocytes % 12.4 L Monocytes % 7.5 Eosinophils % 4.4 Basophils % 0.5 Nucleated Red Blood Cells % 0.0 Neutrophils # 7.1 Lymphocytes # 1.2 Monocytes # 0.7 Eosinophils # 0.4 Basophils # 0.1 Nucleated Red Blood Cells # 0.0 Sodium Level 132 L Potassium Level 3.9 Chloride Level 90 L Carbon Dioxide Level 26 Anion Gap 20 H Blood Urea Nitrogen 102 H Creatinine 7.14 H Glucose Level 207 Calcium Level 10.4 H Medications Medications Current Medications Amlodipine Besylate (Norvasc) 5 mg DAILY GTB Last administered on 09/03/16 08: 15; Admin Dose 5 MG; Start 08/30/16 at 09:00 Clonidine (Catapres) 0.1 mg DAILY PRN GTB ELEVATED SYSTOLIC BP; Start 08/29/16 at 23:00 Doxazosin Mesylate (Cardura) 2 mg QHS GTB Last administered on 09/02/16 20:44 ; Admin Dose 2 MG; Start 08/30/16 at 21:00 Folic Acid (Folic Acid) 1 mg DAILY GTB Last administered on 09/03/16 08:15; Admin Dose 1 MG; Start 08/30/16 at 09:00 Hydralazine HCl (Apresoline) 50 mg Q8 GTB Last administered on 09/02/16 20:44 ; Admin Dose 50 MG; Start 08/30/16 at 06:00 Levetiracetam (Keppra Liquid) 500 mg BID GTB Last administered on 09/03/16 08: 15; Admin Dose 500 MG; Start 08/30/16 at 09:00 Metoprolol Tartrate (Lopressor) 25 mg BID GTB Last administered on 09/03/16 08: 15; Admin Dose 25 MG; Start 08/30/16 at 09:00 Multivit/Ca Carb/ B Cmplx/FA/Prenat (Leah-Juan Jose) 1 tab DAILY GTB Last administered on 09/03/16 08:15; Admin Dose 1 TAB; Start 08/30/16 at 09:00 Ondansetron HCl (Zofran Tab) 4 mg Q6H PRN GTB NAUSEA AND/OR VOMITING; Start at 23:00 Senna (Senokot) 1 tab DAILY GTB Last administered on 09/03/16 08:15; Admin Dose 1 TAB; Start 08/30/16 at 09:00 Zolpidem Tartrate (Ambien) 5 mg QHS PRN GTB INSOMNIA; Start 08/29/16 at 23:00 Insulin Detemir (Levemir) 8 unit HS SC Last administered on 09/02/16 20:47; Admin Dose 8 UNIT; Start 08/30/16 at 21:00 Lansoprazole (Prevacid) 30 mg DAILY@06 GTB Last administered on 09/03/16 05:44 ; Admin Dose 30 MG; Start 08/30/16 at 06:00 Acetaminophen (Tylenol Liquid) 650 mg Q4H PRN GTB PAIN AND OR ELEVATED TEMP Last administered on 09/02/16 11:36; Admin Dose 650 MG; Start 08/29/16 at 23:00 Insulin Aspart NOVOLOG *MILD* ALGORI... Q6 SC Last administered on 09/03/16 05: 48; Admin Dose 2 UNIT; Start 08/30/16 at 00:00 Cefepime HCl (Maxipime 1gm/50 ml (Pmx)) 50 ml @ 100 mls/hr Q24H IVPB Last administered on 09/03/16 08:14; Admin Dose 100 MLS/HR; Start 08/31/16 at 09:00 Miscellaneous Information 1 ea NOTE XX ; Start 08/31/16 at 07:00 Glucose (Glutose) 15 gm Q15M PRN PO DECREASED GLUCOSE; Start 08/31/16 at 07:00 Glucose (Glutose) 22.5 gm Q15M PRN PO DECREASED GLUCOSE; Start 08/31/16 at 07: 00 Dextrose (D50w Syringe) 25 ml Q15M PRN IV DECREASED GLUCOSE; Start 08/31/16 at 07:00 Dextrose (D50w Syringe) 50 ml Q15M PRN IV DECREASED GLUCOSE; Start 08/31/16 at 07:00 Glucagon (Glucagen) 1 mg Q15M PRN IM DECREASED GLUCOSE; Start 08/31/16 at 07:00 Glucose (Glutose) 15 gm Q15M PRN BUCCAL DECREASED GLUCOSE; Start 08/31/16 at 07 :00 ESTRELLITA AZMBRANO M.D. September 03, 2016 11:15
--- NOTE | 2016-09-03 11:21 | PN ---
DATE: 09/03/2016 SUBJECTIVE: The patient is stable. No events overnight. No fevers, chills, nausea, vomiting. OBJECTIVE: VITAL SIGNS: Blood pressure 121/60, respiration 17, pulse 70, temperature 97.2. HEENT: Head is normocephalic. NECK: Supple. HEART: Regular rate. LUNGS: Show diminished breath sounds at the base. ABDOMEN: Soft, nontender to palpation without rebound or guarding. EXTREMITIES: Negative for clubbing, cyanosis. No edema. DERMATOLOGIC: No rashes. MUSCULOSKELETAL: No joint effusions. NEUROLOGIC: No change in exam. MEDICATIONS: Patient's medication has been reviewed. LABORATORY DATA: White count 9.6, hemoglobin 10.0, hematocrit 31.1, platelet count 358. Sodium 132 , potassium 3.9, chloride 90, BUN 102, creatinine 7.14, calcium level is 10.4. ASSESSMENT AND PLAN: 1. End-stage renal disease. The patient is scheduled for dialysis today. Will dialyze for 3 hours , 2K bath, calcium 2.5. 2. Anemia of end-stage renal disease. Continue to monitor hemoglobin and hematocrit levels. Karissa nue Epogen. 3. Mineral bone disorder. Continue to monitor calcium and phosphorus levels. Continue phos binder s. 4. Hypertension. Continue current blood pressure regimen. 5. Sepsis. Etiology is felt to be secondary to healthcare-acquired pneumonia due to Pseudomonas. Continue current antibiotic regimen and follow up with infectious disease. 6. Chronic respiratory failure, status post trach. Continue local trach care. Follow up with pulm onsevern. 7. Dysphagia. Status post PEG. Continue tube feed. 8. Diabetes. Continue Accu-Cheks, insulin sliding scale. 9. Diabetes. Continue current insulin regimen. 10. Chronic encephalopathy. No change. 11. Hypernatremia. The patient will be dialyzed on a 140 sodium bath. Will limit free water flush es. 12. Seizure disorder. Continue medical management. 13. History of intracranial bleed, status post craniotomy. Dictated By: MARYURI WALLER/FRANCES Conf#: [id number] DID#: [id number]
--- NOTE | 2016-09-03 18:32 | PN ---
Date/Time of Note Date/Time of Note DATE: 09/03/16 TIME: 18:27 Assessment/Plan VTE Prophylaxis VTE Prophylaxis Intervention: SCD's Lines/Catheters IV C[facility]ter Type (from [facility]): Peripheral IV Central line still needed: Yes Urinary Cath still in place: No Assessment/Plan Chief Complaint/Hosp Course Assessment/Plan - Sepsis secondary to HCAP. Continue antibiotics per ID. Dr. Benjy lang is following in infection disease consultation. - HCAP. Sputum cultures positive for Pseudomonas. Pending respiratory viral panel. Continue contact isolation. - Chronic respiratory failure with tracheostomy, currently on T-piece. Dr. Freitas is following in pulmonology consultation - End-stage renal disease on hemodialysis. Continue hemodialysis per nephrology. Dr. Sales is following in nephrology consultation. - Hypertension. Continue metoprolol and hydralazine. - History of nontraumatic intracranial bleed, status post craniotomy. - Possible seizure disorder. Continue Keppra. - Diabetes. Continue Levemir and NovoLog per mild algorithm sliding scale. - Anemia of chronic kidney disease. Further recommendations based on clinical course. Plan of care discussed with Dr. Godinez. Problems: Subjective 24 Hr Interval Summary Free Text/Dictation Patient continues to have copious secretions from tracheostomy, requiring frequent suctioning, diminished lung sounds with bilateral rhonchi on auscultation, tachycardic at times, low-grade fever yesterday, afebrile today, patient is currently undergoing hemodialysis. Pending is pending influenza swab results and respiratory viral panel. Exam/Review of Systems Vital Signs Vitals Vital Signs Date Time Temp Pulse Resp B/P Pulse Ox O2 Delivery O2 Flow Rate FiO2 09/03/16 17:10 73 09/03/16 16:55 18 100 Aerosol 5.0 28 T Tube 09/03/16 15:46 97.4 145/65 Intake and Output 09/02/16 09/02/16 09/03/16 15:00 23:00 07:00 Intake Total 710 ml 730 ml Balance 710 ml 730 ml Exam Constitutional: alert, oriented Psych: no complaints Head: atraumatic, normocephalic Eyes: nl conjunctiva ENMT: nl external ears & nose Neck: other (Tracheostomy), supple Respiratory: diminished breath sounds, rhonchi bilaterally, copious secretions from tracheostomy. Cardiovascular: regular rate and rhythm Gastrointestinal: non-tender, other (G-tube), soft Musculoskeletal: nl extremities to inspection Extremities: normal pulses Neurological: confused Additional Comments Right chest permacath Results Result Diagram: 09/03/16 0600 09/03/16 0600 Results 24 hrs Laboratory Tests Test 09/03/16 00:18 09/03/16 05:43 09/03/16 06:00 09/03/16 12:23 Bedside Glucose 217 212 213 White Blood Count 9.6 Red Blood Count 3.47 L Hemoglobin 10.0 L Hematocrit 31.1 L Mean Corpuscular Volume 89.6 Mean Corpuscular Hemoglobin 28.8 L Mean Corpuscular Hemoglobin Concent 32.2 Red Cell Distribution Width 16.8 H Platelet Count 358 # Mean Platelet Volume 9.9 Neutrophils % 73.6 Lymphocytes % 12.4 L Monocytes % 7.5 Eosinophils % 4.4 Basophils % 0.5 Nucleated Red Blood Cells % 0.0 Neutrophils # 7.1 Lymphocytes # 1.2 Monocytes # 0.7 Eosinophils # 0.4 Basophils # 0.1 Nucleated Red Blood Cells # 0.0 Sodium Level 132 L Potassium Level 3.9 Chloride Level 90 L Carbon Dioxide Level 26 Anion Gap 20 H Blood Urea Nitrogen 102 H Creatinine 7.14 H Glucose Level 207 Calcium Level 10.4 H Test 09/03/16 17:14 Bedside Glucose 171 Medications Medications Current Medications Amlodipine Besylate (Norvasc) 5 mg DAILY GTB Last administered on 09/03/16 08: 15; Admin Dose 5 MG; Start 08/30/16 at 09:00 Clonidine (Catapres) 0.1 mg DAILY PRN GTB ELEVATED SYSTOLIC BP; Start 08/29/16 at 23:00 Doxazosin Mesylate (Cardura) 2 mg QHS GTB Last administered on 09/02/16 20:44 ; Admin Dose 2 MG; Start 08/30/16 at 21:00 Folic Acid (Folic Acid) 1 mg DAILY GTB Last administered on 09/03/16 08:15; Admin Dose 1 MG; Start 08/30/16 at 09:00 Hydralazine HCl (Apresoline) 50 mg Q8 GTB Last administered on 09/02/16 20:44 ; Admin Dose 50 MG; Start 08/30/16 at 06:00 Levetiracetam (Keppra Liquid) 500 mg BID GTB Last administered on 09/03/16 08: 15; Admin Dose 500 MG; Start 08/30/16 at 09:00 Metoprolol Tartrate (Lopressor) 25 mg BID GTB Last administered on 09/03/16 08: 15; Admin Dose 25 MG; Start 08/30/16 at 09:00 Multivit/Ca Carb/ B Cmplx/FA/Prenat (Leah-Juan Jose) 1 tab DAILY GTB Last administered on 09/03/16 08:15; Admin Dose 1 TAB; Start 08/30/16 at 09:00 Ondansetron HCl (Zofran Tab) 4 mg Q6H PRN GTB NAUSEA AND/OR VOMITING; Start at 23:00 Senna (Senokot) 1 tab DAILY GTB Last administered on 09/03/16 08:15; Admin Dose 1 TAB; Start 08/30/16 at 09:00 Zolpidem Tartrate (Ambien) 5 mg QHS PRN GTB INSOMNIA; Start 08/29/16 at 23:00 Lansoprazole (Prevacid) 30 mg DAILY@06 GTB Last administered on 09/03/16 05:44 ; Admin Dose 30 MG; Start 08/30/16 at 06:00 Acetaminophen (Tylenol Liquid) 650 mg Q4H PRN GTB PAIN AND OR ELEVATED TEMP Last administered on 09/02/16 11:36; Admin Dose 650 MG; Start 08/29/16 at 23:00 Insulin Aspart NOVOLOG *MILD* ALGORI... Q6 SC Last administered on 09/03/16 17: 22; Admin Dose 1 UNIT; Start 08/30/16 at 00:00 Cefepime HCl (Maxipime 1gm/50 ml (Pmx)) 50 ml @ 100 mls/hr Q24H IVPB Last administered on 09/03/16 08:14; Admin Dose 100 MLS/HR; Start 08/31/16 at 09:00 Miscellaneous Information 1 ea NOTE XX ; Start 08/31/16 at 07:00 Glucose (Glutose) 15 gm Q15M PRN PO DECREASED GLUCOSE; Start 08/31/16 at 07:00 Glucose (Glutose) 22.5 gm Q15M PRN PO DECREASED GLUCOSE; Start 08/31/16 at 07: 00 Dextrose (D50w Syringe) 25 ml Q15M PRN IV DECREASED GLUCOSE; Start 08/31/16 at 07:00 Dextrose (D50w Syringe) 50 ml Q15M PRN IV DECREASED GLUCOSE; Start 08/31/16 at 07:00 Glucagon (Glucagen) 1 mg Q15M PRN IM DECREASED GLUCOSE; Start 08/31/16 at 07:00 Glucose (Glutose) 15 gm Q15M PRN BUCCAL DECREASED GLUCOSE; Start 08/31/16 at 07 :00 Insulin Detemir (Levemir) 12 unit HS SC ; Start 09/03/16 at 21:00 NOELLE JIMENEZ September 03, 2016 18:31
[2016-09-03] MEDS: DOXAZOSIN 2 MG TAB GTB SCH (21:15)
[2016-09-03] MEDS: INSULIN DETEMIR [LEVEMIR] 3ML CART SC SCH (21:18)
[2016-09-04] VITALS (10 sets, daily range): BP systolic 104–186; BP diastolic 50–82; PULSE 79–95; RESP 18–19
[2016-09-04] MEDS: LANSOPRAZOLE 30 MG CAP GTB SCH (06:01)
[2016-09-04] MEDS: INSULIN ASPART [NOVOLOG] 3 ML PEN SC SCH ×4 (06:07→23:54)
[2016-09-04 07:24] LABS: ADD SCAN DIFF NO
[2016-09-04 07:43] LABS: BASOPHILS % 0.3 % (0.0-2.0); EOSINOPHILS # 0.3 10^3/ul (0.0-0.5); EOSINOPHILS % 3.2 % (0.0-7.0); HEMATOCRIT 33.5 % (42.0-52.0); HEMOGLOBIN 10.5 g/dl (14.0-18.0); LYMPHOCYTES % 10.8 % (15.0-51.0); MEAN CORPUSCULAR HEMOGLOBIN 28.1 pg (29.0-33.0); MEAN CORPUSCULAR HGB CONC 31.3 g/dl (32.0-37.0); MEAN CORPUSCULAR VOLUME 89.6 fl (82.0-101.0); MEAN PLATELET VOLUME 9.9 fl (7.4-10.4); MONOCYTE # 0.6 10^3/ul (0.3-0.9); MONOCYTES % 6.5 % (0.0-11.0); NEUTROPHIL # 7.2 10^3/ul (1.6-7.5); NEUTROPHILS % 77.4 % (39.0-77.0); PLATELET COUNT 385 10^3/UL (140-415); RED BLOOD COUNT 3.74 10^6/ul (4.70-6.10); RED CELL DISTRIBUTION WIDTH 16.8 % (11.5-14.5); WHITE BLOOD COUNT 9.3 10^3/ul (4.8-10.8)
[2016-09-04 07:51] LABS: POTASSIUM 3.1 mmol/L (3.5-5.1)
[2016-09-04 07:54] LABS: CREATININE 3.87 mg/dl (0.61-1.24)
[2016-09-04 07:55] LABS: CALCIUM 9.8 mg/dl (8.4-10.2)
[2016-09-04] MEDS: LEVALBUTEROL (NEB) 0.63 MG/3 ML AMP NEB SCH ×4 (08:10→20:41)
[2016-09-04] MEDS: FOLIC ACID 1 MG TAB GTB SCH (08:19)
[2016-09-04] MEDS: LEVETIRACETAM (100 MG/ML) 5ML CUP GTB SCH ×2 (08:19→20:23)
[2016-09-04] MEDS: SENNA TAB GTB SCH (08:19)
[2016-09-04] MEDS: MULTIVIT/CA CARB/B CMPLX/FA TAB GTB SCH (08:19)
[2016-09-04] MEDS: SEVELAMER CARBONATE 0.8 GM PKT GTB SCH ×3 (08:19→17:22)
[2016-09-04] MEDS: AMLODIPINE 5 MG TAB GTB SCH (08:22)
[2016-09-04] MEDS: METOPROLOL 25 MG TAB GTB SCH ×2 (08:23→20:23)
[2016-09-04] MEDS: CEFEPIME 1GM/50 ML (PMX) 50 ML IVPB SCH (09:23)
[2016-09-04] MEDS ORDERED: POTASSIUM CHLORIDE 20 MEQ POWDER FOR ORAL SOLN GTB ONE (09:30)
--- NOTE | 2016-09-04 10:56 | PN ---
DATE: 09/04/2016 SUBJECTIVE: The patient is stable, no acute events overnight. The patient had hemodialysis yesterd ay and tolerated it well. OBJECTIVE: VITAL SIGNS: Blood pressure is 107/52, respirations 20, pulse 75, temperature 98.0. HEENT: Head is normocephalic. NECK: Supple. HEART: Regular rate. LUNGS: Show diminished breath sounds at the base. ABDOMEN: Soft, nontender to palpation. No rebound or guarding. EXTREMITIES: Negative for clubbing, cyanosis, no edema. DERMATOLOGIC: No rashes. MUSCULOSKELETAL: No joint effusions. NEUROLOGIC: No change in exam. MEDICATIONS: The patient's medications have been reviewed. LABORATORY DATA: Showed sodium 132, potassium 3.1, chloride 94, BUN 47, creatinine 3.87, white coun t 9.3, hemoglobin 10.5, hematocrit 33.5, platelet count 385. ASSESSMENT AND PLAN: 1. End-stage renal disease. The patient had hemodialysis yesterday, tolerated well. Plan for dial ysis tomorrow. 2. Hyperkalemia with potassium chloride. 3. Hyponatremia secondary to end-stage renal disease. Will discontinue free water flushes. 4. Anemia of chronic disease. Continue to monitor hemoglobin and hematocrit levels. Continue Epog en. 5. Mineral bone disorder. Continue to monitor calcium and phosphorus levels. Continue phosphate b inders. 6. Hypertension. Continue current blood pressure regimen. 7. Sepsis secondary to pneumonia. Continue current antibiotic regimen. 8. Chronic respiratory failure, status post trach. Continue current trach care. Follow up with lmonary. 9. Dysphagia status post PEG. Continue tube feeding. 10. Diabetes. Continue current insulin regimen. 11. Chronic encephalopathy. No change. 12. Seizure disorder. Continue current medical management. 13. History of intracranial bleed, status post craniotomy. Dictated By: MARYURI WALLER/FRANCES Conf#: [id number] DID#: [id number]
--- NOTE | 2016-09-04 11:19 | CONS ---
Date/Time of Note Date/Time of Note DATE: 09/04/16 TIME: 11:18 Assessment/Plan Assessment/Plan Chief Complaint/Hosp Course - sepsis due to HCAP - HCAP due to pseudomonas - ESRD on HD - h/o CVA s/p craniotomy - DM recommendations - I discussed with Nessa: respiratory viruses and influenza tests were negative. Nessa said she would scan the results onto [employer] [facility]. - continue renally dosed cefepime (08/29/2016-) for pseudomonas, plan for 2 weeks through 02/12/2017 - d/c droplet precautions management d/w Pt's RT, Nessa at main lab and elaine Glover dependency case manager Problems: Consultation Date/Type/Reason Admit Date/Time Aug 29, 2016 at 16:21 Initial Consult Date 08/30/16 Type of Consultation: ID Referring Provider: CANDY JUAREZ 24 HR Interval Summary Subjective hx not possible: pt non-verbal Exam/Review of Systems Vital Signs Vitals Vital Signs Date Time Temp Pulse Resp B/P Pulse Ox O2 Delivery O2 Flow Rate FiO2 09/04/16 08:19 91 09/04/16 08:10 20 98 Aerosol 5.0 28 T Tube 09/04/16 08:00 107/52 09/04/16 07:49 98.0 Intake and Output 09/03/16 09/03/16 09/04/16 15:00 23:00 07:00 Intake Total 1020 ml 710 ml Output Total 2300 ml Balance -1280 ml 710 ml Exam Constitutional: non-verbal Psych: confusion Head: atraumatic, normocephalic Eyes: nl conjunctiva, nl lids ENMT: nl external ears & nose, nl nasal mucosa & septum Neck: other (trach) Cardiovascular: nl pulses, regular rate and rhythm Gastrointestinal: non-tender, other (GT), soft, No distended, No tender Musculoskeletal: nl extremities to inspection Extremities: No edema Results Result Diagram: 09/04/16 0703 09/04/16 0703 Results 24 hrs Laboratory Tests Test 09/03/16 12:23 09/03/16 17:14 09/03/16 23:30 09/04/16 06:00 Bedside Glucose 213 171 190 209 Test 09/04/16 07:03 09/04/16 10:42 White Blood Count 9.3 Red Blood Count 3.74 L Hemoglobin 10.5 L Hematocrit 33.5 L Mean Corpuscular Volume 89.6 Mean Corpuscular Hemoglobin 28.1 L Mean Corpuscular Hemoglobin Concent 31.3 L Red Cell Distribution Width 16.8 H Platelet Count 385 Mean Platelet Volume 9.9 Neutrophils % 77.4 H Lymphocytes % 10.8 L Monocytes % 6.5 Eosinophils % 3.2 Basophils % 0.3 Nucleated Red Blood Cells % 0.0 Neutrophils # 7.2 Lymphocytes # 1.0 Monocytes # 0.6 Eosinophils # 0.3 Basophils # 0.0 Nucleated Red Blood Cells # 0.0 Sodium Level 132 L Potassium Level 3.1 L Chloride Level 91 L Carbon Dioxide Level 29 Anion Gap 15 Blood Urea Nitrogen 47 #H Creatinine 3.87 #H Glucose Level 203 Calcium Level 9.8 Lab Scanned Report REFERENCE LAB Medications Medications Current Medications Amlodipine Besylate (Norvasc) 5 mg DAILY GTB Last administered on 09/04/16 08: 22; Admin Dose 5 MG; Start 08/30/16 at 09:00 Clonidine (Catapres) 0.1 mg DAILY PRN GTB ELEVATED SYSTOLIC BP; Start 08/29/16 at 23:00 Doxazosin Mesylate (Cardura) 2 mg QHS GTB Last administered on 09/03/16 21:15; Admin Dose 2 MG; Start 08/30/16 at 21:00 Folic Acid (Folic Acid) 1 mg DAILY GTB Last administered on 09/04/16 08:19; Admin Dose 1 MG; Start 08/30/16 at 09:00 Hydralazine HCl (Apresoline) 50 mg Q8 GTB Last administered on 09/04/16 06:01; Admin Dose 50 MG; Start 08/30/16 at 06:00 Levetiracetam (Keppra Liquid) 500 mg BID GTB Last administered on 09/04/16 08: 19; Admin Dose 500 MG; Start 08/30/16 at 09:00 Metoprolol Tartrate (Lopressor) 25 mg BID GTB Last administered on 09/04/16 08: 23; Admin Dose 25 MG; Start 08/30/16 at 09:00 Multivit/Ca Carb/ B Cmplx/FA/Prenat (Leah-Juan Jose) 1 tab DAILY GTB Last administered on 09/04/16 08:19; Admin Dose 1 TAB; Start 08/30/16 at 09:00 Ondansetron HCl (Zofran Tab) 4 mg Q6H PRN GTB NAUSEA AND/OR VOMITING; Start at 23:00 Senna (Senokot) 1 tab DAILY GTB Last administered on 09/04/16 08:19; Admin Dose 1 TAB; Start 08/30/16 at 09:00 Zolpidem Tartrate (Ambien) 5 mg QHS PRN GTB INSOMNIA; Start 08/29/16 at 23:00 Lansoprazole (Prevacid) 30 mg DAILY@06 GTB Last administered on 09/04/16 06:01 ; Admin Dose 30 MG; Start 08/30/16 at 06:00 Acetaminophen (Tylenol Liquid) 650 mg Q4H PRN GTB PAIN AND OR ELEVATED TEMP Last administered on 09/02/16 11:36; Admin Dose 650 MG; Start 08/29/16 at 23:00 Insulin Aspart NOVOLOG *MILD* ALGORI... Q6 SC Last administered on 09/04/16 06: 07; Admin Dose 2 UNIT; Start 08/30/16 at 00:00 Cefepime HCl (Maxipime 1gm/50 ml (Pmx)) 50 ml @ 100 mls/hr Q24H IVPB Last administered on 09/04/16 09:23; Admin Dose 100 MLS/HR; Start 08/31/16 at 09:00 Miscellaneous Information 1 ea NOTE XX ; Start 08/31/16 at 07:00 Glucose (Glutose) 15 gm Q15M PRN PO DECREASED GLUCOSE; Start 08/31/16 at 07:00 Glucose (Glutose) 22.5 gm Q15M PRN PO DECREASED GLUCOSE; Start 08/31/16 at 07: 00 Dextrose (D50w Syringe) 25 ml Q15M PRN IV DECREASED GLUCOSE; Start 08/31/16 at 07:00 Dextrose (D50w Syringe) 50 ml Q15M PRN IV DECREASED GLUCOSE; Start 08/31/16 at 07:00 Glucagon (Glucagen) 1 mg Q15M PRN IM DECREASED GLUCOSE; Start 08/31/16 at 07:00 Glucose (Glutose) 15 gm Q15M PRN BUCCAL DECREASED GLUCOSE; Start 08/31/16 at 07 :00 Insulin Detemir (Levemir) 12 unit HS SC Last administered on 09/03/16t 21:18; Admin Dose 12 UNIT; Start 09/03/16 at 21:00 ESTRELLITA ZAMBRANO M.D. September 04, 2016 11:19
--- NOTE | 2016-09-04 15:09 | PN ---
Date/Time of Note Date/Time of Note DATE: 09/04/16 TIME: 15:08 Assessment/Plan VTE Prophylaxis VTE Prophylaxis Intervention: SCD's Lines/Catheters IV Catheter Type (from [facility]): [place] Urinary Cath still in place: No Assessment/Plan Chief Complaint/Hosp Course Assessment/Plan - Sepsis secondary to HCAP. Continue antibiotics per ID. Dr. Benjy lang is following in infection disease consultation. - HCAP. Sputum cultures positive for Pseudomonas. Pending respiratory viral panel. Continue contact isolation. - Chronic respiratory failure with tracheostomy, currently on T-piece. Dr. Freitas is following in pulmonology consultation - End-stage renal disease on hemodialysis. Continue hemodialysis per nephrology. Dr. Sales is following in nephrology consultation. - Hypertension. Continue metoprolol and hydralazine. - History of nontraumatic intracranial bleed, status post craniotomy. - Possible seizure disorder. Continue Keppra. - Diabetes. Continue Levemir and NovoLog per mild algorithm sliding scale. - Anemia of chronic kidney disease. DC planning Further recommendations based on clinical course. Plan of care discussed with Dr. Godinez. Problems: Subjective 24 Hr Interval Summary Free Text/Dictation Status post hemodialysis yesterday, no fever today, looks comfortable. Exam/Review of Systems Vital Signs Vitals Vital Signs Date Time Temp Pulse Resp B/P Pulse Ox O2 Delivery O2 Flow Rate FiO2 09/04/16 12:16 98 20 99 Aerosol 5.0 28 T Tube 09/04/16 11:26 98.6 125/59 Intake and Output 09/03/16 09/03/16 09/04/16 15:00 23:00 07:00 Intake Total 1020 ml 710 ml Output Total 2300 ml Balance -1280 ml 710 ml Exam Constitutional: alert, oriented Psych: no complaints Head: atraumatic, normocephalic Eyes: nl conjunctiva ENMT: nl external ears & nose Neck: other (Tracheostomy), supple Respiratory: diminished breath sounds, rhonchi bilaterally, copious secretions from tracheostomy. Cardiovascular: regular rate and rhythm Gastrointestinal: non-tender, other (G-tube), soft Musculoskeletal: nl extremities to inspection Extremities: normal pulses Neurological: confused Additional Comments Right chest permacath Results Result Diagram: 09/04/16 0703 09/04/16 0703 Results 24 hrs Laboratory Tests Test 09/03/16:14 09/03/16 23:30 09/04/16 06:00 09/04/16 07:03 Bedside Glucose 171 190 209 White Blood Count 9.3 Red Blood Count 3.74 L Hemoglobin 10.5 L Hematocrit 33.5 L Mean Corpuscular Volume 89.6 Mean Corpuscular Hemoglobin 28.1 L Mean Corpuscular Hemoglobin Concent 31.3 L Red Cell Distribution Width 16.8 H Platelet Count 385 Mean Platelet Volume 9.9 Neutrophils % 77.4 H Lymphocytes % 10.8 L Monocytes % 6.5 Eosinophils % 3.2 Basophils % 0.3 Nucleated Red Blood Cells % 0.0 Neutrophils # 7.2 Lymphocytes # 1.0 Monocytes # 0.6 Eosinophils # 0.3 Basophils # 0.0 Nucleated Red Blood Cells # 0.0 Sodium Level 132 L Potassium Level 3.1 L Chloride Level 91 L Carbon Dioxide Level 29 Anion Gap 15 Blood Urea Nitrogen 47 #H Creatinine 3.87 #H Glucose Level 203 Calcium Level 9.8 Test 09/04/16 10:42 09/04/16 11:51 Lab Scanned Report REFERENCE LAB Bedside Glucose 141 Medications Medications Current Medications Amlodipine Besylate (Norvasc) 5 mg DAILY GTB Last administered on 09/04/16 08: 22; Admin Dose 5 MG; Start 08/30/16 at 09:00 Clonidine (Catapres) 0.1 mg DAILY PRN GTB ELEVATED SYSTOLIC BP; Start 08/29/16 at 23:00 Doxazosin Mesylate (Cardura) 2 mg QHS GTB Last administered on 09/03/16 21:15; Admin Dose 2 MG; Start 08/30/16 at 21:00 Folic Acid (Folic Acid) 1 mg DAILY GTB Last administered on 09/04/16 08:19; Admin Dose 1 MG; Start 08/30/16 at 09:00 Hydralazine HCl (Apresoline) 50 mg Q8 GTB Last administered on 09/04/16 13:49; Admin Dose 50 MG; Start 08/30/16 at 06:00 Levetiracetam (Keppra Liquid) 500 mg BID GTB Last administered on 09/04/16 08: 19; Admin Dose 500 MG; Start 08/30/16 at 09:00 Metoprolol Tartrate (Lopressor) 25 mg BID GTB Last administered on 09/04/16 08: 23; Admin Dose 25 MG; Start 08/30/16 at 09:00 Multivit/Ca Carb/ B Cmplx/FA/Prenat (Leah-Juan Jose) 1 tab DAILY GTB Last administered on 09/04/16 08:19; Admin Dose 1 TAB; Start 08/30/16 at 09:00 Ondansetron HCl (Zofran Tab) 4 mg Q6H PRN GTB NAUSEA AND/OR VOMITING; Start at 23:00 Senna (Senokot) 1 tab DAILY GTB Last administered on 09/04/16 08:19; Admin Dose 1 TAB; Start 08/30/16 at 09:00 Zolpidem Tartrate (Ambien) 5 mg QHS PRN GTB INSOMNIA; Start 08/29/16 at 23:00 Lansoprazole (Prevacid) 30 mg DAILY@06 GTB Last administered on 09/04/16 06:01 ; Admin Dose 30 MG; Start 08/30/16 at 06:00 Acetaminophen (Tylenol Liquid) 650 mg Q4H PRN GTB PAIN AND OR ELEVATED TEMP Last administered on 09/02/16 11:36; Admin Dose 650 MG; Start 08/29/16 at 23:00 Insulin Aspart NOVOLOG *MILD* ALGORI... Q6 SC Last administered on 09/04/16 12: 02; Admin Dose 1 UNIT; Start 08/30/16 at 00:00 Cefepime HCl (Maxipime 1gm/50 ml (Pmx)) 50 ml @ 100 mls/hr Q24H IVPB Last administered on 09/04/16 09:23; Admin Dose 100 MLS/HR; Start 08/31/16 at 09:00 Miscellaneous Information 1 ea NOTE XX ; Start 08/31/16 at 07:00 Glucose (Glutose) 15 gm Q15M PRN PO DECREASED GLUCOSE; Start 08/31/16 at 07:00 Glucose (Glutose) 22.5 gm Q15M PRN PO DECREASED GLUCOSE; Start 08/31/16 at 07: 00 Dextrose (D50w Syringe) 25 ml Q15M PRN IV DECREASED GLUCOSE; Start 08/31/16 at 07:00 Dextrose (D50w Syringe) 50 ml Q15M PRN IV DECREASED GLUCOSE; Start 08/31/16 at 07:00 Glucagon (Glucagen) 1 mg Q15M PRN IM DECREASED GLUCOSE; Start 08/31/16 at 07:00 Glucose (Glutose) 15 gm Q15M PRN BUCCAL DECREASED GLUCOSE; Start 08/31/16 at 07 :00 Insulin Detemir (Levemir) 12 unit HS SC Last administered on 09/03/16t 21:18; Admin Dose 12 UNIT; Start 09/03/16 at 21:00 NOELLE JIMENEZ September 04, 2016 15:09
[2016-09-04] MEDS: DOXAZOSIN 2 MG TAB GTB SCH (20:23)
[2016-09-04] MEDS: INSULIN DETEMIR [LEVEMIR] 3ML CART SC SCH (20:25)
[2016-09-05] VITALS (15 sets, daily range): BP systolic 97–148; BP diastolic 42–68; PULSE 86–111; RESP 18–20
[2016-09-05 00:03] LABS: H1N1 2009 FLU A RNA NOT DETECTED; H1N1 2009 SOURCE NASOPHARYNGEAL
[2016-09-05] MEDS: INSULIN ASPART [NOVOLOG] 3 ML PEN SC SCH ×3 (05:22→17:34)
[2016-09-05] MEDS: LANSOPRAZOLE 30 MG CAP GTB SCH (05:23)
[2016-09-05 06:59] LABS: ADD SCAN DIFF NO
[2016-09-05 07:04] LABS: BASOPHILS % 0.4 % (0.0-2.0); EOSINOPHILS # 0.3 10^3/ul (0.0-0.5); HEMATOCRIT 32.7 % (42.0-52.0); HEMOGLOBIN 10.3 g/dl (14.0-18.0); LYMPHOCYTES # 1.1 10^3/ul (0.8-2.9); LYMPHOCYTES % 12.8 % (15.0-51.0); MEAN CORPUSCULAR HEMOGLOBIN 28.1 pg (29.0-33.0); MEAN CORPUSCULAR HGB CONC 31.5 g/dl (32.0-37.0); MEAN CORPUSCULAR VOLUME 89.3 fl (82.0-101.0); MEAN PLATELET VOLUME 9.7 fl (7.4-10.4); MONOCYTE # 0.5 10^3/ul (0.3-0.9); MONOCYTES % 5.4 % (0.0-11.0); NEUTROPHIL # 6.6 10^3/ul (1.6-7.5); NEUTROPHILS % 77.1 % (39.0-77.0); PLATELET COUNT 404 10^3/UL (140-415); RED BLOOD COUNT 3.66 10^6/ul (4.70-6.10); RED CELL DISTRIBUTION WIDTH 16.6 % (11.5-14.5); WHITE BLOOD COUNT 8.6 10^3/ul (4.8-10.8)
[2016-09-05 07:14] LABS: CREATININE 3.55 mg/dl (0.61-1.24)
[2016-09-05 07:15] LABS: CALCIUM 10.3 mg/dl (8.4-10.2); MAGNESIUM 2.3 mg/dl (1.7-2.5); PHOSPHORUS 1.8 mg/dl (2.5-4.9)
[2016-09-05 07:24] LABS: POTASSIUM 2.9 mmol/L (3.5-5.1)
[2016-09-05] MEDS: AMLODIPINE 5 MG TAB GTB SCH (08:29)
[2016-09-05] MEDS: FOLIC ACID 1 MG TAB GTB SCH (08:29)
[2016-09-05] MEDS: LEVETIRACETAM (100 MG/ML) 5ML CUP GTB SCH ×2 (08:29→20:27)
[2016-09-05] MEDS: MULTIVIT/CA CARB/B CMPLX/FA TAB GTB SCH (08:29)
[2016-09-05] MEDS: METOPROLOL 25 MG TAB GTB SCH ×2 (08:29→20:28)
[2016-09-05] MEDS: SENNA TAB GTB SCH (08:29)
[2016-09-05] MEDS: SEVELAMER CARBONATE 0.8 GM PKT GTB SCH ×3 (08:29→17:09)
--- NOTE | 2016-09-05 08:37 | CONS ---
Date/Time of Note Date/Time of Note DATE: 09/05/16 TIME: 08:36 Consult Date/Type/Reason Admit Date/Time Aug 29, 2016 at 16:21 Initial Consult Date 08/31/16 Type of Consultation: nephrology Ordering Provider: CANDY JUAREZ pt. on HD this am. no new events pe: HEENT: Head is normocephalic. NECK: Supple. HEART: Regular rate. LUNGS: Show diminished breath sounds at the base. ABDOMEN: Soft, nontender to palpation. No rebound or guarding. EXTREMITIES: Negative for clubbing, cyanosis, no edema. DERMATOLOGIC: No rashes. MUSCULOSKELETAL: No joint effusions. NEUROLOGIC: No change in exam. Objective Vital Signs Date Time Temp Pulse Resp B/P Pulse Ox O2 Delivery O2 Flow Rate FiO2 09/05/16 08:09 87 09/05/16 07:30 18 09/05/16 07:20 97.2 97/42 100 09/05/16 04:55 5.0 28 09/05/16 04:55 Aerosol T Tube Intake and Output 09/04/16 09/04/16 09/05/16 15:00 23:00 07:00 Intake Total 530 ml 660 ml Balance 530 ml 660 ml Results/Medications Result Diagram: 09/05/16 0630 09/05/16 0630 Results 24 hrs Laboratory Tests Test 09/04/16 10:42 09/04/16 11:51 09/04/16 17:21 09/04/16 23:51 Lab Scanned Report REFERENCE LAB Bedside Glucose 141 152 212 Test 09/05/16 05:19 09/05/16 06:30 Bedside Glucose 150 White Blood Count 8.6 Red Blood Count 3.66 L Hemoglobin 10.3 L Hematocrit 32.7 L Mean Corpuscular Volume 89.3 Mean Corpuscular Hemoglobin 28.1 L Mean Corpuscular Hemoglobin Concent 31.5 L Red Cell Distribution Width 16.6 H Platelet Count 404 Mean Platelet Volume 9.7 Neutrophils % 77.1 H Lymphocytes % 12.8 L Monocytes % 5.4 Eosinophils % 3.0 Basophils % 0.4 Nucleated Red Blood Cells % 0.0 Neutrophils # 6.6 Lymphocytes # 1.1 Monocytes # 0.5 Eosinophils # 0.3 Basophils # 0.0 Nucleated Red Blood Cells # 0.0 Sodium Level 139 Potassium Level 2.9 *L Chloride Level 98 Carbon Dioxide Level 27 Anion Gap 17 H Blood Urea Nitrogen 47 H Creatinine 3.55 H Glucose Level 164 Calcium Level 10.3 H Phosphorus Level 1.8 L Magnesium Level 2.3 Medications Current Medications Amlodipine Besylate (Norvasc) 5 mg DAILY GTB Last administered on 09/04/16 08: 22; Admin Dose 5 MG; Start 08/30/16 at 09:00 Clonidine (Catapres) 0.1 mg DAILY PRN GTB ELEVATED SYSTOLIC BP; Start 08/29/16 at 23:00 Doxazosin Mesylate (Cardura) 2 mg QHS GTB Last administered on 09/04/16 20:23; Admin Dose 2 MG; Start 08/30/16 at 21:00 Folic Acid (Folic Acid) 1 mg DAILY GTB Last administered on 09/05/16 08:29; Admin Dose 1 MG; Start 08/30/16 at 09:00 Hydralazine HCl (Apresoline) 50 mg Q8 GTB Last administered on 09/05/16 05:24; Admin Dose 50 MG; Start 08/30/16 at 06:00 Levetiracetam (Keppra Liquid) 500 mg BID GTB Last administered on 09/05/16 08: 29; Admin Dose 500 MG; Start 08/30/16 at 09:00 Metoprolol Tartrate (Lopressor) 25 mg BID GTB Last administered on 09/04/16 20: 23; Admin Dose 25 MG; Start 08/30/16 at 09:00 Multivit/Ca Carb/ B Cmplx/FA/Prenat (Leah-Juan Jose) 1 tab DAILY GTB Last administered on 09/05/16 08:29; Admin Dose 1 TAB; Start 08/30/16 at 09:00 Ondansetron HCl (Zofran Tab) 4 mg Q6H PRN GTB NAUSEA AND/OR VOMITING; Start at 23:00 Senna (Senokot) 1 tab DAILY GTB Last administered on 09/05/16 08:29; Admin Dose 1 TAB; Start 08/30/16 at 09:00 Zolpidem Tartrate (Ambien) 5 mg QHS PRN GTB INSOMNIA; Start 08/29/16 at 23:00 Lansoprazole (Prevacid) 30 mg DAILY@06 GTB Last administered on 09/05/16 05:23 ; Admin Dose 30 MG; Start 08/30/16 at 06:00 Acetaminophen (Tylenol Liquid) 650 mg Q4H PRN GTB PAIN AND OR ELEVATED TEMP Last administered on 09/02/16 11:36; Admin Dose 650 MG; Start 08/29/16 at 23:00 Insulin Aspart NOVOLOG *MILD* ALGORI... Q6 SC Last administered on 09/05/16 05: 22; Admin Dose 1 UNIT; Start 08/30/16 at 00:00 Cefepime HCl (Maxipime 1gm/50 ml (Pmx)) 50 ml @ 100 mls/hr Q24H IVPB Last administered on 09/04/16 09:23; Admin Dose 100 MLS/HR; Start 08/31/16 at 09:00 Miscellaneous Information 1 ea NOTE XX ; Start 08/31/16 at 07:00 Glucose (Glutose) 15 gm Q15M PRN PO DECREASED GLUCOSE; Start 08/31/16 at 07:00 Glucose (Glutose) 22.5 gm Q15M PRN PO DECREASED GLUCOSE; Start 08/31/16 at 07: 00 Dextrose (D50w Syringe) 25 ml Q15M PRN IV DECREASED GLUCOSE; Start 08/31/16 at 07:00 Dextrose (D50w Syringe) 50 ml Q15M PRN IV DECREASED GLUCOSE; Start 08/31/16 at 07:00 Glucagon (Glucagen) 1 mg Q15M PRN IM DECREASED GLUCOSE; Start 08/31/16 at 07:00 Glucose (Glutose) 15 gm Q15M PRN BUCCAL DECREASED GLUCOSE; Start 08/31/16 at 07 :00 Insulin Detemir (Levemir) 12 unit HS SC Last administered on 09/04/16 20:25; Admin Dose 12 UNIT; Start 09/03/16 at 21:00 Assessment/Plan Chief Complaint/Hosp Course 1. End-stage renal disease. The patient is on dialysis Saturday, Saturday, Saturday. on hd this am, d/w rn at bedside. -watch volume status, adjust meds, access care. 2. Anemia of chronic disease. Will continue to monitor H and H levels. Give Epogen. 3. Mineral bone disorder. Continue to monitor calcium and phosphorus levels. Continue phosphate binders. 4. Hypertension. Continue the current blood pressure regimen. 5. Sepsis. Underlying source unclear, possibly line infection versus tracheal bronchitis. The patient's cultures from Perm-A-Cath have been drawn. Will continue the current antibiotic regimen and follow up with infectious disease for recommendations. 6. Chronic respiratory failure. Status post trach. Continue local trach care. Continue trach mask. Follow up with pulmonary. 7. Dysphagia. Status post PEG. Continue tube feeding. 8. Diabetes. Continue the current insulin regimen. 9. Chronic encephalopathy. No change. 10. Mild hyponatremia. Continue to monitor. 11. Seizure disorder. Continue medical management. 12. History of intracranial bleed. Status post craniotomy. Problems: CHARLOTTE YOUNG MD September 05, 2016 08:37
[2016-09-05] MEDS: LEVALBUTEROL (NEB) 0.63 MG/3 ML AMP NEB SCH ×4 (08:45→20:33)
[2016-09-05] MEDS: CEFEPIME 1GM/50 ML (PMX) 50 ML IVPB SCH (08:48)
[2016-09-05] MEDS ORDERED: POTASSIUM CHLORIDE 50 ML IVPB ONE (10:00)
[2016-09-05] MEDS ORDERED: POTASSIUM PHOSPHATE 20 MEQ in SOD CHLORIDE 0.9% 250 ML IVPB ONE (10:30)
--- NOTE | 2016-09-05 13:40 | PN ---
Date/Time of Note Date/Time of Note DATE: 09/05/16 TIME: 13:39 Assessment/Plan VTE Prophylaxis VTE Prophylaxis Intervention: SCD's Lines/Catheters [facility]from [facility] Saline Lock Urinary Cath still in place: No Assessment/Plan Chief Complaint/Hosp Course Assessment/Plan - Sepsis secondary to HCAP. Continue antibiotics per ID. Dr. Benjy lang is following in infection disease consultation. - HCAP. Sputum cultures positive for Pseudomonas. Pending respiratory viral panel. Continue contact isolation. - Chronic respiratory failure with tracheostomy, currently on T-piece. Dr. Freitas is following in pulmonology consultation - End-stage renal disease on hemodialysis. Continue hemodialysis per nephrology. Dr. Sales is following in nephrology consultation. - Hypertension. Continue metoprolol and hydralazine. - History of nontraumatic intracranial bleed, status post craniotomy. - Possible seizure disorder. Continue Keppra. - Diabetes. Continue Levemir and NovoLog per mild algorithm sliding scale. - Anemia of chronic kidney disease. Pending placement Further recommendations based on clinical course. Plan of care discussed with Dr. Godinez. Problems: Subjective 24 Hr Interval Summary Free Text/Dictation Patient remained afebrile, tolerates G-tube feeding well, moderate amount secretions from tracheostomy. Exam/Review of Systems Vital Signs Vitals Vital Signs Date Time Temp Pulse Resp B/P Pulse Ox O2 Delivery O2 Flow Rate FiO2 09/05/16 12:07 111 09/05/16 11:23 97.2 18 148/68 100 09/05/16 11:08 Aerosol 5.0 28 T Tube Intake and Output 09/04/16 09/04/16 09/05/16 15:00 23:00 07:00 Intake Total 530 ml 660 ml Balance 530 ml 660 ml Exam Constitutional: alert, oriented Psych: no complaints Head: atraumatic, normocephalic Eyes: nl conjunctiva ENMT: nl external ears & nose Neck: other (Tracheostomy), supple Respiratory: diminished breath sounds, rhonchi bilaterally, copious secretions from tracheostomy. Cardiovascular: regular rate and rhythm Gastrointestinal: non-tender, other (G-tube), soft Musculoskeletal: nl extremities to inspection Extremities: normal pulses Neurological: confused Additional Comments Right chest permacath Results Result Diagram: 09/05/16 0630 09/05/16 0630 Results 24 hrs Laboratory Tests Test 09/04/16 17:21 09/04/16 23:51 09/05/16 05:19 09/05/16 06:30 Bedside Glucose 152 212 150 White Blood Count 8.6 Red Blood Count 3.66 L Hemoglobin 10.3 L Hematocrit 32.7 L Mean Corpuscular Volume 89.3 Mean Corpuscular Hemoglobin 28.1 L Mean Corpuscular Hemoglobin Concent 31.5 L Red Cell Distribution Width 16.6 H Platelet Count 404 Mean Platelet Volume 9.7 Neutrophils % 77.1 H Lymphocytes % 12.8 L Monocytes % 5.4 Eosinophils % 3.0 Basophils % 0.4 Nucleated Red Blood Cells % 0.0 Neutrophils # 6.6 Lymphocytes # 1.1 Monocytes # 0.5 Eosinophils # 0.3 Basophils # 0.0 Nucleated Red Blood Cells # 0.0 Sodium Level 139 Potassium Level 2.9 *L Chloride Level 98 Carbon Dioxide Level 27 Anion Gap 17 H Blood Urea Nitrogen 47 H Creatinine 3.55 H Glucose Level 164 Calcium Level 10.3 H Phosphorus Level 1.8 L Magnesium Level 2.3 Test 09/05/16 11:44 Bedside Glucose 239 H Medications Medications Current Medications Amlodipine Besylate (Norvasc) 5 mg DAILY GTB Last administered on 09/04/16 08: 22; Admin Dose 5 MG; Start 08/30/16 at 09:00 Clonidine (Catapres) 0.1 mg DAILY PRN GTB ELEVATED SYSTOLIC BP; Start 08/29/16 at 23:00 Doxazosin Mesylate (Cardura) 2 mg QHS GTB Last administered on 09/04/16 20:23; Admin Dose 2 MG; Start 08/30/16 at 21:00 Folic Acid (Folic Acid) 1 mg DAILY GTB Last administered on 09/05/16 08:29; Admin Dose 1 MG; Start 08/30/16 at 09:00 Hydralazine HCl (Apresoline) 50 mg Q8 GTB Last administered on 09/05/16 05:24; Admin Dose 50 MG; Start 08/30/16 at 06:00 Levetiracetam (Keppra Liquid) 500 mg BID GTB Last administered on 09/05/16 08: 29; Admin Dose 500 MG; Start 08/30/16 at 09:00 Metoprolol Tartrate (Lopressor) 25 mg BID GTB Last administered on 09/04/16 20: 23; Admin Dose 25 MG; Start 08/30/16 at 09:00 Multivit/Ca Carb/ B Cmplx/FA/Prenat (Leah-Juan Jose) 1 tab DAILY GTB Last administered on 09/05/16 08:29; Admin Dose 1 TAB; Start 08/30/16 at 09:00 Ondansetron HCl (Zofran Tab) 4 mg Q6H PRN GTB NAUSEA AND/OR VOMITING; Start at 23:00 Senna (Senokot) 1 tab DAILY GTB Last administered on 09/05/16 08:29; Admin Dose 1 TAB; Start 08/30/16 at 09:00 Zolpidem Tartrate (Ambien) 5 mg QHS PRN GTB INSOMNIA; Start 08/29/16 at 23:00 Lansoprazole (Prevacid) 30 mg DAILY@06 GTB Last administered on 09/05/16 05:23 ; Admin Dose 30 MG; Start 08/30/16 at 06:00 Acetaminophen (Tylenol Liquid) 650 mg Q4H PRN GTB PAIN AND OR ELEVATED TEMP Last administered on 09/02/16 11:36; Admin Dose 650 MG; Start 08/29/16 at 23:00 Insulin Aspart NOVOLOG *MILD* ALGORI... Q6 SC Last administered on 09/05/16 11: 52; Admin Dose 3 UNIT; Start 08/30/16 at 00:00 Cefepime HCl (Maxipime 1gm/50 ml (Pmx)) 50 ml @ 100 mls/hr Q24H IVPB Last administered on 09/05/16 08:48; Admin Dose 100 MLS/HR; Start 08/31/16 at 09:00 Miscellaneous Information 1 ea NOTE XX ; Start 08/31/16 at 07:00 Glucose (Glutose) 15 gm Q15M PRN PO DECREASED GLUCOSE; Start 08/31/16 at 07:00 Glucose (Glutose) 22.5 gm Q15M PRN PO DECREASED GLUCOSE; Start 08/31/16 at 07: 00 Dextrose (D50w Syringe) 25 ml Q15M PRN IV DECREASED GLUCOSE; Start 08/31/16 at 07:00 Dextrose (D50w Syringe) 50 ml Q15M PRN IV DECREASED GLUCOSE; Start 08/31/16 at 07:00 Glucagon (Glucagen) 1 mg Q15M PRN IM DECREASED GLUCOSE; Start 08/31/16 at 07:00 Glucose (Glutose) 15 gm Q15M PRN BUCCAL DECREASED GLUCOSE; Start 08/31/16 at 07 :00 Insulin Detemir 12 unit 12 unit HS SC Last administered on 09/04/16 20:25; Admin Dose 12 UNIT; Start 09/03/16 at 21:00 Potassium Phosphate/Sodium Chloride (K Phos (Meq)/NS) 254.5455 ml @ 63.636 m... ONCE ONCE IVPB Last administered on 09/05/16 10:21; Admin Dose 63.636 MLS /HR; Start 09/05/16 at 10:30; Stop 09/05/16 at 14:29 NOELLE JIMENEZ September 05, 2016 13:40
[2016-09-05] MEDS: DOXAZOSIN 2 MG TAB GTB SCH (20:28)
[2016-09-05] MEDS: INSULIN DETEMIR [LEVEMIR] 3ML CART SC SCH (20:38)
[2016-09-06] MEDS: INSULIN ASPART [NOVOLOG] 3 ML PEN SC SCH ×4 (00:04→18:19)
[2016-09-06 00:06] VITALS: BP 119/58; PULSE 91; RESP 18
[2016-09-06 00:12] VITALS: BP 119/58; RESP 20
[2016-09-06 02:58] VITALS: BP 99/51; RESP 18
[2016-09-06] MEDS: LANSOPRAZOLE 30 MG CAP GTB SCH (06:50)
[2016-09-06 07:00] LABS: ADD SCAN DIFF NO
[2016-09-06 07:07] LABS: BASOPHIL # 0.1 10^3/ul (0.0-0.1); BASOPHILS % 0.4 % (0.0-2.0); EOSINOPHILS # 0.3 10^3/ul (0.0-0.5); EOSINOPHILS % 2.9 % (0.0-7.0); HEMATOCRIT 32.6 % (42.0-52.0); HEMOGLOBIN 10.3 g/dl (14.0-18.0); MEAN CORPUSCULAR HEMOGLOBIN 28.9 pg (29.0-33.0); MEAN CORPUSCULAR HGB CONC 31.6 g/dl (32.0-37.0); MEAN CORPUSCULAR VOLUME 91.3 fl (82.0-101.0); MONOCYTE # 0.6 10^3/ul (0.3-0.9); MONOCYTES % 5.6 % (0.0-11.0); NEUTROPHIL # 9.1 10^3/ul (1.6-7.5); NEUTROPHILS % 80.6 % (39.0-77.0); PLATELET COUNT 443 10^3/UL (140-415); RED BLOOD COUNT 3.57 10^6/ul (4.70-6.10); WHITE BLOOD COUNT 11.3 10^3/ul (4.8-10.8)
[2016-09-06 07:40] LABS: CALCIUM 10.5 mg/dl (8.4-10.2); CREATININE 4.37 mg/dl (0.61-1.24); POTASSIUM 4.2 mmol/L (3.5-5.1)
[2016-09-06 07:43] VITALS: BP 120/59; RESP 16
[2016-09-06] MEDS: SEVELAMER CARBONATE 0.8 GM PKT GTB SCH ×3 (08:15→17:53)
[2016-09-06] MEDS: LEVALBUTEROL (NEB) 0.63 MG/3 ML AMP NEB SCH ×4 (08:20→20:12)
[2016-09-06] MEDS: LEVETIRACETAM (100 MG/ML) 5ML CUP GTB SCH ×2 (09:28→22:27)
[2016-09-06] MEDS: MULTIVIT/CA CARB/B CMPLX/FA TAB GTB SCH (09:28)
[2016-09-06] MEDS: AMLODIPINE 5 MG TAB GTB SCH (09:29)
[2016-09-06] MEDS: SENNA TAB GTB SCH (09:29)
[2016-09-06] MEDS: FOLIC ACID 1 MG TAB GTB SCH (09:29)
[2016-09-06] MEDS: METOPROLOL 25 MG TAB GTB SCH ×2 (09:29→22:28)
[2016-09-06] MEDS: CEFEPIME 1GM/50 ML (PMX) 50 ML IVPB SCH (09:33)
--- NOTE | 2016-09-06 09:59 | PN ---
DATE: 09/06/2016 SUBJECTIVE: The patient is stable. No events overnight. No fevers, chills, nausea or vomiting. OBJECTIVE: VITAL SIGNS: Blood pressure 120/59, respirations 16, pulse 84, temperature 98.3. HEENT: Head is normocephalic. NECK: Supple. HEART: Regular rate. LUNGS: Show diminished breath sounds at the base. ABDOMEN: Soft, nontender to palpation. No rebound or guarding. EXTREMITIES: Negative for clubbing, cyanosis, no edema. DERMATOLOGIC: No rashes. MUSCULOSKELETAL: No joint effusions. NEUROLOGIC: No change in exam. MEDICATIONS: The patient's medications have been reviewed. LABORATORY DATA: Shows a sodium 137, potassium 4.2, chloride 104, BUN 56, creatinine 4.37. White c ount 9.3, hemoglobin 10.3, hematocrit 32.6, platelet count is 443. ASSESSMENT AND PLAN: 1. End-stage renal disease. The patient is on dialysis Saturday, Saturday, Saturday. Plan for dialys is tomorrow. 2. Anemia of chronic disease. Continue to monitor H and H levels. Continue Epogen. 3. Mineral bone disorder. Continue to monitor calcium and phosphorus levels. Continue phos binders . 4. Hypertension. Continue current blood pressure regimen. 5. Sepsis secondary to pneumonia. Continue current antibiotic regimen. 6. Chronic respiratory failure, status post trach. Continue, follow up with pulmonary. 7. Dysphagia, status post PEG tube, tube feeding. 8. Diabetes. Continue current insulin regimen. 9. Chronic encephalopathy. No change. 10. Seizure disorder. Continue current medical management. 11. History of intracranial bleed, status post craniotomy. Dictated By: MARYURI WALLER/FRANCES Conf#: [id number] DID#: [id number]
--- NOTE | 2016-09-06 13:48 | PN ---
Date/Time of Note Date/Time of Note DATE: 09/06/16 TIME: 13:48 Assessment/Plan VTE Prophylaxis VTE Prophylaxis Intervention: SCD's Lines/Catheters IV [facility] Type (from [email or web address] Saline Lock Urinary Cath still in place: No Assessment/Plan Chief Complaint/Hosp Course Assessment/Plan - Sepsis secondary to HCAP. Continue antibiotics per ID. Dr. Benjy lang is following in infection disease consultation. - HCAP. Sputum cultures positive for Pseudomonas. Pending respiratory viral panel. Continue contact isolation. - Chronic respiratory failure with tracheostomy, currently on T-piece. Dr. Freitas is following in pulmonology consultation - End-stage renal disease on hemodialysis. Continue hemodialysis per nephrology. Dr. Sales is following in nephrology consultation. - Hypertension. Continue metoprolol and hydralazine. - History of nontraumatic intracranial bleed, status post craniotomy. - Possible seizure disorder. Continue Keppra. - Diabetes. Continue Levemir and NovoLog per mild algorithm sliding scale. - Anemia of chronic kidney disease. Pending placement Further recommendations based on clinical course. Plan of care discussed with Dr. Godinez. Problems: Exam/Review of Systems Vital Signs Vitals Vital Signs Date Time Temp Pulse Resp B/P Pulse Ox O2 Delivery O2 Flow Rate FiO2 09/06/16 12:56 5.0 28 09/06/16 12:20 74 20 100 Aerosol Mask 09/06/16 07:43 98.3 120/59 Intake and Output 09/05/16 09/05/16 09/06/16 15:00 23:00 07:00 Intake Total 850 ml 480 ml 505 ml Output Total 2500 ml Balance -1650 ml 480 ml 505 ml Exam Constitutional: alert, oriented Psych: no complaints Head: atraumatic, normocephalic Eyes: nl conjunctiva ENMT: nl external ears & nose Neck: other (Tracheostomy), supple Respiratory: diminished breath sounds, rhonchi bilaterally, copious secretions from tracheostomy. Cardiovascular: regular rate and rhythm Gastrointestinal: non-tender, other (G-tube), soft Musculoskeletal: nl extremities to inspection Extremities: normal pulses Neurological: confused Additional Comments Right chest permacath Results Result Diagram: 09/06/16 0550 09/06/16 0550 Results 24 hrs Laboratory Tests Test 09/05/16 17:27 09/05/16 20:30 09/05/16 23:59 09/06/16 05:50 Bedside Glucose 204 188 231 H White Blood Count 11.3 #H Red Blood Count 3.57 L Hemoglobin 10.3 L Hematocrit 32.6 L Mean Corpuscular Volume 91.3 Mean Corpuscular Hemoglobin 28.9 L Mean Corpuscular Hemoglobin Concent 31.6 L Red Cell Distribution Width 17.0 H Platelet Count 443 H Mean Platelet Volume 10.0 Neutrophils % 80.6 H Lymphocytes % 9.0 L Monocytes % 5.6 Eosinophils % 2.9 Basophils % 0.4 Nucleated Red Blood Cells % 0.0 Neutrophils # 9.1 H Lymphocytes # 1.0 Monocytes # 0.6 Eosinophils # 0.3 Basophils # 0.1 Nucleated Red Blood Cells # 0.0 Sodium Level 137 Potassium Level 4.2 Chloride Level 104 Carbon Dioxide Level 25 Anion Gap 12 Blood Urea Nitrogen 56 H Creatinine 4.37 H Glucose Level 161 Calcium Level 10.5 H Test 09/06/16 06:55 09/06/16 11:56 09/06/16 11:56 Bedside Glucose 166 127 Lab Scanned Report REFERENCE LAB Medications Medications Current Medications Amlodipine Besylate (Norvasc) 5 mg DAILY GTB Last administered on 09/06/16 09: 29; Admin Dose 5 MG; Start 08/30/16 at 09:00 Clonidine (Catapres) 0.1 mg DAILY PRN GTB ELEVATED SYSTOLIC BP; Start 08/29/16 at 23:00 Doxazosin Mesylate (Cardura) 2 mg QHS GTB Last administered on 09/05/16 20:28; Admin Dose 2 MG; Start 08/30/16 at 21:00 Folic Acid (Folic Acid) 1 mg DAILY GTB Last administered on 09/06/16 09:29; Admin Dose 1 MG; Start 08/30/16 at 09:00 Hydralazine HCl (Apresoline) 50 mg Q8 GTB Last administered on 09/06/16 06:50; Admin Dose 50 MG; Start 08/30/16 at 06:00 Levetiracetam (Keppra Liquid) 500 mg BID GTB Last administered on 09/06/16 09: 28; Admin Dose 500 MG; Start 08/30/16 at 09:00 Metoprolol Tartrate (Lopressor) 25 mg BID GTB Last administered on 09/06/16 09: 29; Admin Dose 25 MG; Start 08/30/16 at 09:00 Multivit/Ca Carb/ B Cmplx/FA/Prenat (Leah-Juan Jose) 1 tab DAILY GTB Last administered on 09/06/16 09:28; Admin Dose 1 TAB; Start 08/30/16 at 09:00 Ondansetron HCl (Zofran Tab) 4 mg Q6H PRN GTB NAUSEA AND/OR VOMITING; Start at 23:00 Senna (Senokot) 1 tab DAILY GTB Last administered on 09/06/16 09:29; Admin Dose 1 TAB; Start 08/30/16 at 09:00 Zolpidem Tartrate (Ambien) 5 mg QHS PRN GTB INSOMNIA; Start 08/29/16 at 23:00 Lansoprazole (Prevacid) 30 mg DAILY@06 GTB Last administered on 09/06/16 06:50 ; Admin Dose 30 MG; Start 08/30/16 at 06:00 Acetaminophen (Tylenol Liquid) 650 mg Q4H PRN GTB PAIN AND OR ELEVATED TEMP Last administered on 09/02/16 11:36; Admin Dose 650 MG; Start 08/29/16 at 23:00 Insulin Aspart NOVOLOG *MILD* ALGORI... Q6 SC Last administered on 09/06/16 07: 01; Admin Dose 1 UNIT; Start 08/30/16 at 00:00 Cefepime HCl (Maxipime 1gm/50 ml (Pmx)) 50 ml @ 100 mls/hr Q24H IVPB Last administered on 09/06/16 09:33; Admin Dose 100 MLS/HR; Start 08/31/16 at 09:00 Miscellaneous Information 1 ea NOTE XX ; Start 08/31/16 at 07:00 Glucose (Glutose) 15 gm Q15M PRN PO DECREASED GLUCOSE; Start 08/31/16 at 07:00 Glucose (Glutose) 22.5 gm Q15M PRN PO DECREASED GLUCOSE; Start 08/31/16 at 07: 00 Dextrose (D50w Syringe) 25 ml Q15M PRN IV DECREASED GLUCOSE; Start 08/31/16 at 07:00 Dextrose (D50w Syringe) 50 ml Q15M PRN IV DECREASED GLUCOSE; Start 08/31/16 at 07:00 Glucagon (Glucagen) 1 mg Q15M PRN IM DECREASED GLUCOSE; Start 08/31/16 at 07:00 Glucose (Glutose) 15 gm Q15M PRN BUCCAL DECREASED GLUCOSE; Start 08/31/16 at 07 :00 Insulin Detemir (Levemir) 12 unit HS SC Last administered on 09/05/16t 20:38; Admin Dose 12 UNIT; Start 09/03/16 at 21:00 NOELLE JIMENEZ September 06, 2016 13:48
[2016-09-06 20:02] VITALS: BP 147/65; RESP 18
[2016-09-06] MEDS: DOXAZOSIN 2 MG TAB GTB SCH (22:28)
[2016-09-06] MEDS: INSULIN DETEMIR [LEVEMIR] 3ML CART SC SCH (22:47)
[2016-09-07] VITALS (9 sets, daily range): BP systolic 96–137; BP diastolic 45–66; PULSE 74–98; RESP 18
[2016-09-07] MEDS: INSULIN ASPART [NOVOLOG] 3 ML PEN SC SCH ×4 (00:08→18:24)
[2016-09-07] MEDS: LANSOPRAZOLE 30 MG CAP GTB SCH (06:18)
--- NOTE | 2016-09-07 08:35 | PN ---
DATE: 09/07/2016 SUBJECTIVE: The patient is stable. No acute events overnight. No fevers, chills, nausea or vomiti ng. No shortness of breath. OBJECTIVE: VITAL SIGNS: Blood pressure is 126/59, respirations 18, pulse 78, temperature 97.5. HEENT: Head is normocephalic. NECK: Supple. HEART: Regular rate. LUNGS: Showed diminished sounds at the base. ABDOMEN: Soft, nontender to palpation. No rebound or guarding. EXTREMITIES: Negative for clubbing or cyanosis. No edema. DERMATOLOGIC: No rashes. MUSCULOSKELETAL: Have no joint effusion. NEUROLOGIC: No change in exam. MEDICATIONS: The patient's medications were reviewed. LABORATORY DATA: Have been reviewed. No new labs. ASSESSMENT AND PLAN: 1. End-stage renal disease. The patient is scheduled for dialysis today, with dialysis for 8 hours on a 3 K bath, calcium 2.5. 2. Anemia of chronic disease. Continue to monitor H and H levels. Continue Epogen. 3. Mineral bone disorder. Continue to monitor calcium and phosphorus levels. Continue phos binder s. 4. Hypertension. Continue the current blood pressure regimen. 5. Sepsis secondary to pneumonia. Continue the current antibiotic regimen. 6. Chronic respiratory failure, status post tracheostomy. The patient is currently stable. Follow up with pulmonary. 7. Dysphagia. Status post percutaneous endoscopic gastrostomy. Continue tube feedings. 8. Diabetes. Continue the current insulin regimen. 9. Chronic encephalopathy. No change. 10. Seizure disorder. Continue the current medical management. 11. History of intracranial bleed. Status post craniotomy. Dictated By: MARYURI WALLER/FRANCES Conf#: [id number] DID#: [id number]
[2016-09-07] MEDS: LEVALBUTEROL (NEB) 0.63 MG/3 ML AMP NEB SCH ×4 (08:50→19:49)
[2016-09-07] MEDS: METOPROLOL 25 MG TAB GTB SCH ×2 (09:00→20:08)
[2016-09-07] MEDS: AMLODIPINE 5 MG TAB GTB SCH (09:00)
[2016-09-07] MEDS: LEVETIRACETAM (100 MG/ML) 5ML CUP GTB SCH ×2 (09:25→20:08)
[2016-09-07] MEDS: SEVELAMER CARBONATE 0.8 GM PKT GTB SCH ×3 (12:15→18:16)
--- NOTE | 2016-09-07 15:12 | PN ---
Date/Time of Note Date/Time of Note DATE: 09/07/16 TIME: 15:11 Assessment/Plan VTE Prophylaxis VTE Prophylaxis Intervention: SCD's Lines/Catheters IV [facility]ter Type [facility]from [facility] Saline Lock Urinary Cath still in place: No Assessment/Plan Chief Complaint/Hosp Course Assessment/Plan - Sepsis secondary to HCAP. Continue antibiotics per ID. Dr. Benjy lang is following in infection disease consultation. - HCAP. Sputum cultures positive for Pseudomonas. Pending respiratory viral panel. Continue contact isolation. - Chronic respiratory failure with tracheostomy, currently on T-piece. Dr. Freitas is following in pulmonology consultation - End-stage renal disease on hemodialysis. Continue hemodialysis per nephrology. Dr. Sales is following in nephrology consultation. - Hypertension. Continue metoprolol and hydralazine. - History of nontraumatic intracranial bleed, status post craniotomy. - Possible seizure disorder. Continue Keppra. - Diabetes. Continue Levemir and NovoLog per mild algorithm sliding scale. - Anemia of chronic kidney disease. Pending placement Further recommendations based on clinical course. Plan of care discussed with Dr. Godinez. Problems: Subjective 24 Hr Interval Summary Free Text/Dictation Patient is undergoing hemodialysis, remains afebrile, moderate amount of secretions from the tracheostomy, no acute events. Exam/Review of Systems Vital Signs Vitals Vital Signs Date Time Temp Pulse Resp B/P Pulse Ox O2 Delivery O2 Flow Rate FiO2 09/07/16 14:50 90 09/07/16 12:20 20 09/07/16 12:00 99 Aerosol Mask 5.0 28 09/07/16 07:42 97.5 126/59 Intake and Output 09/06/16 09/06/16 09/07/16 15:00 23:00 07:00 Intake Total 50 ml 580 ml Balance 50 ml 580 ml Exam Constitutional: alert, oriented Psych: no complaints Head: atraumatic, normocephalic Eyes: nl conjunctiva ENMT: nl external ears & nose Neck: other (Tracheostomy), supple Respiratory: diminished breath sounds, rhonchi bilaterally, copious secretions from tracheostomy. Cardiovascular: regular rate and rhythm Gastrointestinal: non-tender, other (G-tube), soft Musculoskeletal: nl extremities to inspection Extremities: normal pulses Neurological: confused Additional Comments Right chest permacath Results Result Diagram: 09/06/16 0550 09/06/16 0550 Results 24 hrs Laboratory Tests Test 09/06/16 17:28 09/06/16 22:44 09/07/16 00:06 09/07/16 06:13 Bedside Glucose 170 183 183 193 Test 09/07/16 07:50 09/07/16 11:52 Bedside Glucose 144 126 Medications Medications Current Medications Amlodipine Besylate (Norvasc) 5 mg DAILY GTB Last administered on 09/06/16 09: 29; Admin Dose 5 MG; Start 08/30/16 at 09:00 Clonidine (Catapres) 0.1 mg DAILY PRN GTB ELEVATED SYSTOLIC BP; Start 08/29/16 at 23:00 Doxazosin Mesylate (Cardura) 2 mg QHS GTB Last administered on 09/06/16 22:28; Admin Dose 2 MG; Start 08/30/16 at 21:00 Folic Acid (Folic Acid) 1 mg DAILY GTB Last administered on 09/06/16 09:29; Admin Dose 1 MG; Start 08/30/16 at 09:00 Hydralazine HCl (Apresoline) 50 mg Q8 GTB Last administered on 09/06/16 22:28; Admin Dose 50 MG; Start 08/30/16 at 06:00 Levetiracetam (Keppra Liquid) 500 mg BID GTB Last administered on 09/07/16 09: 25; Admin Dose 500 MG; Start 08/30/16 at 09:00 Metoprolol Tartrate (Lopressor) 25 mg BID GTB Last administered on 09/06/16 22: 28; Admin Dose 25 MG; Start 08/30/16 at 09:00 Multivit/Ca Carb/ B Cmplx/FA/Prenat (Leah-Juan Jose) 1 tab DAILY GTB Last administered on 09/06/16 09:28; Admin Dose 1 TAB; Start 08/30/16 at 09:00 Ondansetron HCl (Zofran Tab) 4 mg Q6H PRN GTB NAUSEA AND/OR VOMITING; Start at 23:00 Senna (Senokot) 1 tab DAILY GTB Last administered on 09/06/16 09:29; Admin Dose 1 TAB; Start 08/30/16 at 09:00 Zolpidem Tartrate (Ambien) 5 mg QHS PRN GTB INSOMNIA; Start 08/29/16 at 23:00 Lansoprazole (Prevacid) 30 mg DAILY@06 GTB Last administered on 09/07/16 06:18 ; Admin Dose 30 MG; Start 08/30/16 at 06:00 Acetaminophen (Tylenol Liquid) 650 mg Q4H PRN GTB PAIN AND OR ELEVATED TEMP Last administered on 09/02/16 11:36; Admin Dose 650 MG; Start 08/29/16 at 23:00 Insulin Aspart NOVOLOG *MILD* ALGORI... Q6 SC Last administered on 09/07/16 06: 16; Admin Dose 2 UNIT; Start 08/30/16 at 00:00 Cefepime HCl (Maxipime 1gm/50 ml (Pmx)) 50 ml @ 100 mls/hr Q24H IVPB Last administered on 09/06/16 09:33; Admin Dose 100 MLS/HR; Start 08/31/16 at 09:00 Miscellaneous Information 1 ea NOTE XX ; Start 08/31/16 at 07:00 Glucose (Glutose) 15 gm Q15M PRN PO DECREASED GLUCOSE; Start 08/31/16 at 07:00 Glucose (Glutose) 22.5 gm Q15M PRN PO DECREASED GLUCOSE; Start 08/31/16 at 07: 00 Dextrose (D50w Syringe) 25 ml Q15M PRN IV DECREASED GLUCOSE; Start 08/31/16 at 07:00 Dextrose (D50w Syringe) 50 ml Q15M PRN IV DECREASED GLUCOSE; Start 08/31/16 at 07:00 Glucagon (Glucagen) 1 mg Q15M PRN IM DECREASED GLUCOSE; Start 08/31/16 at 07:00 Glucose (Glutose) 15 gm Q15M PRN BUCCAL DECREASED GLUCOSE; Start 08/31/16 at 07 :00 Insulin Detemir (Levemir) 12 unit HS SC Last administered on 09/06/16 22:47; Admin Dose 12 UNIT; Start 09/03/16 at 21:00 NOELLE JIMENEZ September 07, 2016 15:12
[2016-09-07] MEDS: SENNA TAB GTB SCH (15:44)
[2016-09-07] MEDS: MULTIVIT/CA CARB/B CMPLX/FA TAB GTB SCH (15:45)
[2016-09-07] MEDS: FOLIC ACID 1 MG TAB GTB SCH (15:45)
[2016-09-07] MEDS: CEFEPIME 1GM/50 ML (PMX) 50 ML IVPB SCH (16:40)
[2016-09-07] MEDS: INSULIN DETEMIR [LEVEMIR] 3ML CART SC SCH (20:06)
[2016-09-07] MEDS: DOXAZOSIN 2 MG TAB GTB SCH (20:08)
[2016-09-07] MEDS ORDERED: FLUOCINONIDE 0.05% 15 GM CR TOP SCH (21:00)
[2016-09-08] MEDS: INSULIN ASPART [NOVOLOG] 3 ML PEN SC SCH ×5 (00:59→23:27)
[2016-09-08 05:42] LABS: ADD SCAN DIFF NO
[2016-09-08 05:50] LABS: BASOPHIL # 0.1 10^3/ul (0.0-0.1); BASOPHILS % 0.5 % (0.0-2.0); EOSINOPHILS # 0.3 10^3/ul (0.0-0.5); HEMOGLOBIN 10.2 g/dl (14.0-18.0); LYMPHOCYTES # 1.1 10^3/ul (0.8-2.9); LYMPHOCYTES % 10.9 % (15.0-51.0); MEAN CORPUSCULAR HEMOGLOBIN 28.7 pg (29.0-33.0); MEAN CORPUSCULAR HGB CONC 31.9 g/dl (32.0-37.0); MEAN CORPUSCULAR VOLUME 90.1 fl (82.0-101.0); MEAN PLATELET VOLUME 9.7 fl (7.4-10.4); MONOCYTE # 0.6 10^3/ul (0.3-0.9); MONOCYTES % 5.9 % (0.0-11.0); NEUTROPHILS % 77.8 % (39.0-77.0); PLATELET COUNT 553 10^3/UL (140-415); RED BLOOD COUNT 3.55 10^6/ul (4.70-6.10); WHITE BLOOD COUNT 10.3 10^3/ul (4.8-10.8)
[2016-09-08] MEDS: LANSOPRAZOLE 30 MG CAP GTB SCH (06:04)
[2016-09-08 06:14] LABS: CALCIUM 10.5 mg/dl (8.4-10.2); CREATININE 4.04 mg/dl (0.61-1.24); POTASSIUM 4.8 mmol/L (3.5-5.1)
[2016-09-08 07:42] VITALS: BP 126/61; RESP 16
--- NOTE | 2016-09-08 08:47 | PN ---
DATE: 09/08/2016 SUBJECTIVE: The patient had hemodialysis yesterday and tolerated it well. No other events noted. OBJECTIVE: VITAL SIGNS: Blood pressure is 126/61, respirations 16, pulse 92, temperature 97.4. HEENT: Head is normocephalic. NECK: Supple. HEART: Regular rate. LUNGS: Showed diminished breath sounds at the base. ABDOMEN: Soft, nontender to palpation. No rebound or guarding. EXTREMITIES: Negative for clubbing or cyanosis. No edema. DERMATOLOGIC: No rashes. MUSCULOSKELETAL: Have no joint effusion. NEUROLOGIC: No change in exam. MEDICATIONS: The patient's medications were reviewed. LABORATORY DATA: Shows a white count of 10.3, hemoglobin 10.2, hematocrit 32.0, platelet count is 5 53. Sodium 134, potassium 4.8, BUN 55, creatinine 4.04, calcium 10.5. ASSESSMENT AND PLAN: 1. End-stage renal disease. The patient had hemodialysis yesterday and tolerated it well. Will an ticipate next dialysis either tomorrow or Saturday. 2. Anemia of chronic disease. Continue to monitor H and H levels. Continue Epogen. 3. Mineral bone disorder. Continue to monitor calcium and phosphorus levels. Continue phos binder s. 4. Hypertension. Continue the current blood pressure regimen. 5. Mild hyponatremia. Continue to monitor. Will limit free water flushes. 6. Sepsis secondary to pneumonia. Continue the current antibiotic regimen. 7. Chronic respiratory failure. Status post trach. 8. Dysphagia. Status post PEG. Continue tube feedings. 9. Diabetes. Continue the current insulin regimen. 10. Chronic encephalopathy. No change. 11. Seizure disorder. Continue medical management. 12. History of intracranial bleed. Status post craniotomy. Dictated By: MARYURI WALLER/FRANCSE Conf#: [id number] DID#: [id number]
[2016-09-08] MEDS: LEVETIRACETAM (100 MG/ML) 5ML CUP GTB SCH ×2 (08:53→20:40)
[2016-09-08] MEDS: CEFEPIME 1GM/50 ML (PMX) 50 ML IVPB SCH (08:55)
[2016-09-08] MEDS: SENNA TAB GTB SCH (08:55)
[2016-09-08] MEDS: SEVELAMER CARBONATE 0.8 GM PKT GTB SCH ×3 (08:55→18:18)
[2016-09-08] MEDS: METOPROLOL 25 MG TAB GTB SCH ×2 (08:55→20:41)
[2016-09-08] MEDS: AMLODIPINE 5 MG TAB GTB SCH (08:55)
[2016-09-08] MEDS: MULTIVIT/CA CARB/B CMPLX/FA TAB GTB SCH (08:55)
[2016-09-08] MEDS: FOLIC ACID 1 MG TAB GTB SCH (08:55)
[2016-09-08] MEDS: LEVALBUTEROL (NEB) 0.63 MG/3 ML AMP NEB SCH ×4 (09:11→20:08)
--- NOTE | 2016-09-08 10:35 | PN ---
Date/Time of Note Date/Time of Note DATE: 09/08/16 TIME: 10:33 Assessment/Plan VTE Prophylaxis VTE Prophylaxis Intervention: other Lines/Catheters [facility] Saline Lock Urinary Cath still in place: No Assessment/Plan Assessment/Plan - Right /left eye conjunctivitis- polymyxin B ointment BID - Sepsis secondary to HCAP. Continue antibiotics per ID. Dr. Benjy lang is following in infection disease consultation. - HCAP. Sputum cultures positive for Pseudomonas. Pending respiratory viral panel. Continue contact isolation. - Chronic respiratory failure with tracheostomy, currently on T-piece. Dr. Freitas is following in pulmonology consultation - End-stage renal disease on hemodialysis. Continue hemodialysis per nephrology. Dr. Sales is following in nephrology consultation. - Hypertension. Continue metoprolol and hydralazine. - History of nontraumatic intracranial bleed, status post craniotomy. - Possible seizure disorder. Continue Keppra. - Diabetes. Continue Levemir and NovoLog per mild algorithm sliding scale. - Anemia of chronic kidney disease. Pending placement Further recommendations based on clinical course. Plan of care discussed with Dr. Godinez. Subjective 24 Hr Interval Summary Free Text/Dictation alert, awake, does not follow commands, afebrile, tolerating GT feedings, dw staff ENT: no complaints Exam/Review of Systems Vital Signs Vitals Vital Signs Date Time Temp Pulse Resp B/P Pulse Ox O2 Delivery O2 Flow Rate FiO2 09/08/16 09:13 88 18 98 Aerosol 5.0 28 T Tube 09/08/16 07:42 97.4 126/61 Intake and Output 09/07/16 09/07/16 09/08/16 15:00 23:00 07:00 Intake Total 550 ml 0 ml Output Total 2000 ml Balance -1450 ml 0 ml Exam Constitutional: alert, well developed Eyes: nl sclera ENMT: nl external ears & nose, other (trach intact) Respiratory: diminished breath sounds Cardiovascular: nl pulses Gastrointestinal: non-tender, other (gt intact), soft Musculoskeletal: muscle weakness Neurological: confused Skin: puncture Lymph: nontender Results Result Diagram: 09/08/1618 09/08/1618 Results 24 hrs Laboratory Tests Test 09/07/16 11:52 09/07/16 17:51 09/07/16 19:57 09/08/16 00:55 Bedside Glucose 126 166 178 200 Test 09/08/16 05:18 09/08/16 06:05 White Blood Count 10.3 Red Blood Count 3.55 L Hemoglobin 10.2 L Hematocrit 32.0 L Mean Corpuscular Volume 90.1 Mean Corpuscular Hemoglobin 28.7 L Mean Corpuscular Hemoglobin Concent 31.9 L Red Cell Distribution Width 17.0 H Platelet Count 553 #H Mean Platelet Volume 9.7 Neutrophils % 77.8 H Lymphocytes % 10.9 L Monocytes % 5.9 Eosinophils % 3.0 Basophils % 0.5 Nucleated Red Blood Cells % 0.0 Neutrophils # 8.0 H Lymphocytes # 1.1 Monocytes # 0.6 Eosinophils # 0.3 Basophils # 0.1 Nucleated Red Blood Cells # 0.0 Sodium Level 134 L Potassium Level 4.8 Chloride Level 97 Carbon Dioxide Level 28 Anion Gap 14 Blood Urea Nitrogen 55 H Creatinine 4.04 H Glucose Level 142 Calcium Level 10.5 H Bedside Glucose 134 Medications Medications Current Medications Amlodipine Besylate (Norvasc) 5 mg DAILY GTB Last administered on 09/08/16 08: 55; Admin Dose 5 MG; Start 08/30/16 at 09:00 Clonidine (Catapres) 0.1 mg DAILY PRN GTB ELEVATED SYSTOLIC BP; Start 08/29/16 at 23:00 Doxazosin Mesylate (Cardura) 2 mg QHS GTB Last administered on 09/07/16 20:08; Admin Dose 2 MG; Start 08/30/16 at 21:00 Folic Acid (Folic Acid) 1 mg DAILY GTB Last administered on 09/08/16 08:55; Admin Dose 1 MG; Start 08/30/16 at 09:00 Hydralazine HCl (Apresoline) 50 mg Q8 GTB Last administered on 09/08/16 06:04; Admin Dose 50 MG; Start 08/30/16 at 06:00 Levetiracetam (Keppra Liquid) 500 mg BID GTB Last administered on 09/08/16 08: 53; Admin Dose 500 MG; Start 08/30/16 at 09:00 Metoprolol Tartrate (Lopressor) 25 mg BID GTB Last administered on 09/08/16 08: 55; Admin Dose 25 MG; Start 08/30/16 at 09:00 Multivit/Ca Carb/ B Cmplx/FA/Prenat (Leah-Juan Jose) 1 tab DAILY GTB Last administered on 09/08/16 08:55; Admin Dose 1 TAB; Start 08/30/16 at 09:00 Ondansetron HCl (Zofran Tab) 4 mg Q6H PRN GTB NAUSEA AND/OR VOMITING; Start at 23:00 Senna (Senokot) 1 tab DAILY GTB Last administered on 09/08/16 08:55; Admin Dose 1 TAB; Start 08/30/16 at 09:00 Zolpidem Tartrate (Ambien) 5 mg QHS PRN GTB INSOMNIA; Start 08/29/16 at 23:00 Lansoprazole (Prevacid) 30 mg DAILY@06 GTB Last administered on 09/08/16 06:04 ; Admin Dose 30 MG; Start 08/30/16 at 06:00 Acetaminophen (Tylenol Liquid) 650 mg Q4H PRN GTB PAIN AND OR ELEVATED TEMP Last administered on 09/02/16 11:36; Admin Dose 650 MG; Start 08/29/16 at 23:00 Insulin Aspart NOVOLOG *MILD* ALGORI... Q6 SC Last administered on 09/08/16 00: 59; Admin Dose 2 UNIT; Start 08/30/16 at 00:00 Cefepime HCl (Maxipime 1gm/50 ml (Pmx)) 50 ml @ 100 mls/hr Q24H IVPB Last administered on 09/08/16 08:55; Admin Dose 100 MLS/HR; Start 08/31/16 at 09:00 Miscellaneous Information 1 ea NOTE XX ; Start 08/31/16 at 07:00 Glucose (Glutose) 15 gm Q15M PRN PO DECREASED GLUCOSE; Start 08/31/16 at 07:00 Glucose (Glutose) 22.5 gm Q15M PRN PO DECREASED GLUCOSE; Start 08/31/16 at 07: 00 Dextrose (D50w Syringe) 25 ml Q15M PRN IV DECREASED GLUCOSE; Start 08/31/16 at 07:00 Dextrose (D50w Syringe) 50 ml Q15M PRN IV DECREASED GLUCOSE; Start 08/31/16 at 07:00 Glucagon (Glucagen) 1 mg Q15M PRN IM DECREASED GLUCOSE; Start 08/31/16 at 07:00 Glucose (Glutose) 15 gm Q15M PRN BUCCAL DECREASED GLUCOSE; Start 08/31/16 at 07 :00 Insulin Detemir (Levemir) 12 unit HS SC Last administered on 09/07/16t 20:06; Admin Dose 12 UNIT; Start 09/03/16 at 21:00 CANDY JUAREZ September 08, 2016 10:35
[2016-09-08] MEDS: BACITRACIN/POLYMYX 3.5 GM OPH OINT BOTH EYES SCH ×2 (12:59→20:40)
[2016-09-08 20:18] VITALS: BP 121/58; RESP 17
[2016-09-08] MEDS: DOXAZOSIN 2 MG TAB GTB SCH (20:41)
[2016-09-08] MEDS: INSULIN DETEMIR [LEVEMIR] 3ML CART SC SCH (20:43)
[2016-09-09 05:50] LABS: ADD SCAN DIFF NO
[2016-09-09] MEDS: LANSOPRAZOLE 30 MG CAP GTB SCH (05:50)
[2016-09-09] MEDS: INSULIN ASPART [NOVOLOG] 3 ML PEN SC SCH ×4 (05:57→23:55)
[2016-09-09 06:00] LABS: BASOPHIL # 0.1 10^3/ul (0.0-0.1); BASOPHILS % 0.6 % (0.0-2.0); EOSINOPHILS # 0.3 10^3/ul (0.0-0.5); HEMATOCRIT 32.2 % (42.0-52.0); LYMPHOCYTES # 1.2 10^3/ul (0.8-2.9); LYMPHOCYTES % 13.5 % (15.0-51.0); MEAN CORPUSCULAR HGB CONC 31.1 g/dl (32.0-37.0); MEAN CORPUSCULAR VOLUME 90.2 fl (82.0-101.0); MEAN PLATELET VOLUME 9.9 fl (7.4-10.4); MONOCYTE # 0.6 10^3/ul (0.3-0.9); MONOCYTES % 6.4 % (0.0-11.0); NEUTROPHIL # 6.3 10^3/ul (1.6-7.5); NEUTROPHILS % 74.2 % (39.0-77.0); PLATELET COUNT 547 10^3/UL (140-415); RED BLOOD COUNT 3.57 10^6/ul (4.70-6.10); WHITE BLOOD COUNT 8.5 10^3/ul (4.8-10.8)
[2016-09-09 06:19] LABS: CALCIUM 10.9 mg/dl (8.4-10.2); CREATININE 5.53 mg/dl (0.61-1.24); POTASSIUM 4.9 mmol/L (3.5-5.1)
[2016-09-09 07:18] VITALS: BP 130/60; RESP 18
[2016-09-09] MEDS: LEVALBUTEROL (NEB) 0.63 MG/3 ML AMP NEB SCH ×4 (07:46→19:31)
--- NOTE | 2016-09-09 09:25 | PN ---
DATE: 09/09/2016 SUBJECTIVE: The patient is stable. No events overnight. No fevers, chills, nausea or vomiting. OBJECTIVE: VITAL SIGNS: Blood pressure 130/60, respirations 18, pulse 93, temperature 98.6. HEENT: Head is normocephalic. NECK: Supple. HEART: Regular rate. LUNGS: Show diminished breath sounds at the base. ABDOMEN: Soft, nontender to palpation. No rebound or guarding. EXTREMITIES: Negative for clubbing, cyanosis, no edema. DERMATOLOGIC: No rashes. MUSCULOSKELETAL: No joint effusions. NEUROLOGIC: No change in exam. MEDICATIONS: The patient's medications have been reviewed. LABORATORY DATA: Shows sodium 132, potassium 4.9, BUN 82, creatinine 5.53, calcium 10.9. White cou nt 8.5, hemoglobin 10.0, hematocrit 32.2, platelet count is 547. ASSESSMENT AND PLAN: 1. End-stage renal disease, plan for hemodialysis tomorrow for 3 hours on ____K bath. Calcium 2.5. 2. Hyponatremia secondary to end-stage renal disease. The patient will be dialyzed on 140 sodium b ath. 3. Anemia. Continue to monitor hemoglobin and hematocrit levels. Continue Epogen. 5. Mineral bone disorder. The patient is ____calcemic, possibly from mobilization. Would check a PTH level. Continue phosphate binders. Will dialyze on a low calcium bath. 6. Hypertension. Continue current blood pressure regimen. 7. Sepsis secondary to pneumonia. Continue current antibiotic regimen. 8. Chronic respiratory failure, status post trach. 9. Dysphagia, status post percutaneous endoscopic gastrostomy, continue tube feeding. 10. Diabetes. Continue current insulin regimen. 11. Chronic encephalopathy. No change. 12. Seizure disorder. Continue current medical management. 13. History of intracranial bleed, status post craniotomy. Dictated By: MARYURI WALLER/FRANCES Conf#: [id number] DID#: [id number]
[2016-09-09] MEDS: BACITRACIN/POLYMYX 3.5 GM OPH OINT BOTH EYES SCH ×2 (09:35→20:33)
[2016-09-09] MEDS: SEVELAMER CARBONATE 0.8 GM PKT GTB SCH ×3 (09:35→17:51)
[2016-09-09] MEDS: SENNA TAB GTB SCH (09:36)
[2016-09-09] MEDS: FOLIC ACID 1 MG TAB GTB SCH (09:36)
[2016-09-09] MEDS: LEVETIRACETAM (100 MG/ML) 5ML CUP GTB SCH ×2 (09:36→20:30)
[2016-09-09] MEDS: MULTIVIT/CA CARB/B CMPLX/FA TAB GTB SCH (09:36)
[2016-09-09] MEDS: METOPROLOL 25 MG TAB GTB SCH ×2 (09:37→20:30)
[2016-09-09] MEDS: CEFEPIME 1GM/50 ML (PMX) 50 ML IVPB SCH (09:37)
[2016-09-09] MEDS: AMLODIPINE 5 MG TAB GTB SCH (09:37)
--- NOTE | 2016-09-09 12:24 | PN ---
Date/Time of Note Date/Time of Note DATE: 09/09/16 TIME: 12:22 Assessment/Plan VTE Prophylaxis VTE Prophylaxis Intervention: SCD's Lines/Catheters IV Catheter Type (from [facility]): Saline Lock Urinary Cath still in place: No Assessment/Plan Assessment/Plan - Right /left eye conjunctivitis- polymyxin B ointment BID - Sepsis secondary to HCAP. Continue antibiotics per ID. Dr. Benjy lang is following in infection disease consultation. - HCAP. Sputum cultures positive for Pseudomonas. Pending respiratory viral panel. Continue contact isolation. - Chronic respiratory failure with tracheostomy, currently on T-piece. Dr. Freitas is following in pulmonology consultation - End-stage renal disease on hemodialysis. Continue hemodialysis per nephrology. Dr. Sales is following in nephrology consultation. - Hypertension. Continue metoprolol and hydralazine. - History of nontraumatic intracranial bleed, status post craniotomy. - Possible seizure disorder. Continue Keppra. - Diabetes. Continue Levemir and NovoLog per mild algorithm sliding scale. - Anemia of chronic kidney disease. Pending placement Further recommendations based on clinical course. Plan of care discussed with Dr. oGdinez. Subjective 24 Hr Interval Summary Free Text/Dictation alert, awake, does not follow commands, afebrile, tolerating GT feedings, dw staff- no new events reported overnight. Constitutional: requiring O2 Exam/Review of Systems Vital Signs Vitals Vital Signs Date Time Temp Pulse Resp B/P Pulse Ox O2 Delivery O2 Flow Rate FiO2 09/09/16 11:50 82 18 99 Aerosol 28 T Tube 09/09/16 07:18 98.6 130/60 09/09/16 05:52 5.0 Intake and Output 09/08/16 09/08/16 09/09/16 15:00 23:00 07:00 Intake Total 50 ml Balance 50 ml Exam Constitutional: alert, well developed Psych: no complaints Head: normocephalic Eyes: other ENMT: nl external ears & nose Neck: non-tender Respiratory: diminished breath sounds Cardiovascular: nl pulses Gastrointestinal: non-tender, soft Musculoskeletal: muscle weakness Extremities: normal pulses Neurological: confused Skin: other Lymph: nontender Results Result Diagram: 09/09/16 0506 09/09/16 0506 Results 24 hrs Laboratory Tests Test 09/08/16 18:17 09/08/16 20:40 09/08/16 23:23 09/09/16 05:06 Bedside Glucose 126 138 150 White Blood Count 8.5 Red Blood Count 3.57 L Hemoglobin 10.0 L Hematocrit 32.2 L Mean Corpuscular Volume 90.2 Mean Corpuscular Hemoglobin 28.0 L Mean Corpuscular Hemoglobin Concent 31.1 L Red Cell Distribution Width 17.0 H Platelet Count 547 H Mean Platelet Volume 9.9 Neutrophils % 74.2 Lymphocytes % 13.5 L Monocytes % 6.4 Eosinophils % 4.0 Basophils % 0.6 Nucleated Red Blood Cells % 0.0 Neutrophils # 6.3 Lymphocytes # 1.2 Monocytes # 0.6 Eosinophils # 0.3 Basophils # 0.1 Nucleated Red Blood Cells # 0.0 Sodium Level 132 L Potassium Level 4.9 Chloride Level 95 L Carbon Dioxide Level 26 Anion Gap 16 Blood Urea Nitrogen 82 H Creatinine 5.53 H Glucose Level 145 Calcium Level 10.9 H Test 09/09/16 05:51 Bedside Glucose 145 Medications Medications Current Medications Amlodipine Besylate (Norvasc) 5 mg DAILY GTB Last administered on 09/09/16 09: 37; Admin Dose 5 MG; Start 08/30/16 at 09:00 Clonidine (Catapres) 0.1 mg DAILY PRN GTB ELEVATED SYSTOLIC BP; Start 08/29/16 at 23:00 Doxazosin Mesylate (Cardura) 2 mg QHS GTB Last administered on 09/08/16 20:41; Admin Dose 2 MG; Start 08/30/16 at 21:00 Folic Acid (Folic Acid) 1 mg DAILY GTB Last administered on 09/09/16 09:36; Admin Dose 1 MG; Start 08/30/16 at 09:00 Hydralazine HCl (Apresoline) 50 mg Q8 GTB Last administered on 09/09/16 05:53; Admin Dose 50 MG; Start 08/30/16 at 06:00 Levetiracetam (Keppra Liquid) 500 mg BID GTB Last administered on 09/09/16 09: 36; Admin Dose 500 MG; Start 08/30/16 at 09:00 Metoprolol Tartrate (Lopressor) 25 mg BID GTB Last administered on 09/09/16 09: 37; Admin Dose 25 MG; Start 08/30/16 at 09:00 Multivit/Ca Carb/ B Cmplx/FA/Prenat (Leah-Juan Jose) 1 tab DAILY GTB Last administered on 09/09/16 09:36; Admin Dose 1 TAB; Start 08/30/16 at 09:00 Ondansetron HCl (Zofran Tab) 4 mg Q6H PRN GTB NAUSEA AND/OR VOMITING; Start at 23:00 Senna (Senokot) 1 tab DAILY GTB Last administered on 09/09/16 09:36; Admin Dose 1 TAB; Start 08/30/16 at 09:00 Zolpidem Tartrate (Ambien) 5 mg QHS PRN GTB INSOMNIA; Start 08/29/16 at 23:00 Lansoprazole (Prevacid) 30 mg DAILY@06 GTB Last administered on 09/09/16 05:50 ; Admin Dose 30 MG; Start 08/30/16 at 06:00 Acetaminophen (Tylenol Liquid) 650 mg Q4H PRN GTB PAIN AND OR ELEVATED TEMP Last administered on 09/02/16 11:36; Admin Dose 650 MG; Start 08/29/16 at 23:00 Insulin Aspart NOVOLOG *MILD* ALGORI... Q6 SC Last administered on 09/09/16 05: 57; Admin Dose 1 UNIT; Start 08/30/16 at 00:00 Cefepime HCl (Maxipime 1gm/50 ml (Pmx)) 50 ml @ 100 mls/hr Q24H IVPB Last administered on 09/09/16 09:37; Admin Dose 100 MLS/HR; Start 08/31/16 at 09:00 Miscellaneous Information 1 ea NOTE XX ; Start 08/31/16 at 07:00 Glucose (Glutose) 15 gm Q15M PRN PO DECREASED GLUCOSE; Start 08/31/16 at 07:00 Glucose (Glutose) 22.5 gm Q15M PRN PO DECREASED GLUCOSE; Start 08/31/16 at 07: 00 Dextrose (D50w Syringe) 25 ml Q15M PRN IV DECREASED GLUCOSE; Start 08/31/16 at 07:00 Dextrose (D50w Syringe) 50 ml Q15M PRN IV DECREASED GLUCOSE; Start 08/31/16 at 07:00 Glucagon (Glucagen) 1 mg Q15M PRN IM DECREASED GLUCOSE; Start 08/31/16 at 07:00 Glucose (Glutose) 15 gm Q15M PRN BUCCAL DECREASED GLUCOSE; Start 08/31/16 at 07 :00 Insulin Detemir (Levemir) 12 unit HS SC Last administered on 09/08/16 20:43; Admin Dose 12 UNIT; Start 09/03/16 at 21:00 Bacitracin/ Polymyxin B Sulfate (Ak-Poly-Anais Oph Oint) 1 applic BID BOTH EYES Last administered on 09/09/16 09:35; Admin Dose 1 APPLIC; Start 09/08/16 at 12:00 CANDY JUAREZ September 09, 2016 12:24
[2016-09-09 19:40] VITALS: BP 134/74; RESP 18
[2016-09-09] MEDS: DOXAZOSIN 2 MG TAB GTB SCH (20:31)
[2016-09-09] MEDS: INSULIN DETEMIR [LEVEMIR] 3ML CART SC SCH (20:37)
[2016-09-10] VITALS (10 sets, daily range): BP systolic 97–139; BP diastolic 47–68; PULSE 91–101; RESP 20
[2016-09-10] MEDS: LANSOPRAZOLE 30 MG CAP GTB SCH (05:25)
[2016-09-10 05:29] LABS: ADD SCAN DIFF NO
[2016-09-10] MEDS: INSULIN ASPART [NOVOLOG] 3 ML PEN SC SCH ×3 (05:40→17:35)
[2016-09-10 05:59] LABS: CREATININE 6.99 mg/dl (0.61-1.24)
[2016-09-10 06:00] LABS: CALCIUM 10.8 mg/dl (8.4-10.2)
[2016-09-10 06:06] LABS: BASOPHILS % 0.6 % (0.0-2.0); EOSINOPHILS # 0.2 10^3/ul (0.0-0.5); EOSINOPHILS % 3.3 % (0.0-7.0); HEMATOCRIT 30.3 % (42.0-52.0); HEMOGLOBIN 9.8 g/dl (14.0-18.0); LYMPHOCYTES # 0.9 10^3/ul (0.8-2.9); LYMPHOCYTES % 12.6 % (15.0-51.0); MEAN CORPUSCULAR HEMOGLOBIN 28.5 pg (29.0-33.0); MEAN CORPUSCULAR HGB CONC 32.3 g/dl (32.0-37.0); MEAN CORPUSCULAR VOLUME 88.1 fl (82.0-101.0); MEAN PLATELET VOLUME 9.9 fl (7.4-10.4); MONOCYTE # 0.5 10^3/ul (0.3-0.9); MONOCYTES % 6.7 % (0.0-11.0); NEUTROPHIL # 5.2 10^3/ul (1.6-7.5); NEUTROPHILS % 75.4 % (39.0-77.0); PLATELET COUNT 559 10^3/UL (140-415); RED BLOOD COUNT 3.44 10^6/ul (4.70-6.10); RED CELL DISTRIBUTION WIDTH 16.5 % (11.5-14.5); WHITE BLOOD COUNT 6.9 10^3/ul (4.8-10.8)
[2016-09-10] MEDS: LEVALBUTEROL (NEB) 0.63 MG/3 ML AMP NEB SCH ×4 (08:12→19:38)
[2016-09-10] MEDS ORDERED: EPOETIN 10000 UNITS/1 ML INJ (ESRD) SC SCH (09:00)
[2016-09-10] MEDS: BACITRACIN/POLYMYX 3.5 GM OPH OINT BOTH EYES SCH ×2 (10:04→21:26)
[2016-09-10] MEDS: SEVELAMER CARBONATE 0.8 GM PKT GTB SCH ×3 (10:04→17:35)
[2016-09-10] MEDS: MULTIVIT/CA CARB/B CMPLX/FA TAB GTB SCH (10:05)
[2016-09-10] MEDS: SENNA TAB GTB SCH (10:05)
[2016-09-10] MEDS: LEVETIRACETAM (100 MG/ML) 5ML CUP GTB SCH ×2 (10:05→21:31)
[2016-09-10] MEDS: FOLIC ACID 1 MG TAB GTB SCH (10:05)
[2016-09-10] MEDS: METOPROLOL 25 MG TAB GTB SCH ×2 (10:06→21:00)
[2016-09-10] MEDS: CEFEPIME 1GM/50 ML (PMX) 50 ML IVPB SCH (10:07)
[2016-09-10] MEDS: AMLODIPINE 5 MG TAB GTB SCH (10:07)
--- NOTE | 2016-09-10 11:52 | RADRPT ---
PROCEDURE: CT Brain without contrast. CLINICAL INDICATION: Altered mental status TECHNIQUE: Routine CT scan of the brain was performed on a high resolution multi detector scanner without intravenous contrast. One or more of the following dose reduction techniques were used: Auto mated exposure control; Adjustment of the mA and/or kV according to patient size; Use of iterative r econstruction technique. CTDI = 43 mGy. DLP = 720 mGy-cm. COMPARISON: No prior relevant examinations are available for comparison. FINDINGS: Hemorrhage: No evidence of intracranial hemorrhage. Acute ischemic changes: No evidence of acute ischemic changes. Mass effect/Midline shift: None. Parenchymal volume: Moderate central parenchymal volume loss is evident. Ventricular system: Mild disproportionate enlargement of the ventricular system in comparison to the overlying sulci which can be seen in patients with normal pressure or communicating hydrocephalus. Chronic changes: Areas of encephalomalacia involving both frontal lobes, right greater than left, as well as focally involving the superior aspect of the right cerebellar hemisphere. There are todd us and confluent areas of significant low attenuation change within the supratentorial white matter most compatible with severe chronic microvascular ischemic changes. Benign appearing enlargement of the CSF space overlying the dorsal aspect of the left frontal lobe likely due to an arachnoid cyst. Atherosclerotic calcifications of the cavernous portions of both internal carotid arteries are prese nt. Extracranial soft tissues: Unremarkable. Calvarium: Postoperative changes from right frontal craniotomy and bilateral caroline hole craniotomies. Paranasal sinuses: Minimal mucosal thickening bilateral sphenoid sinuses. Mastoid air cells: Visualized mastoid air cells are clear. IMPRESSION: No acute intracranial abnormalities. Postoperative changes of the frontal calvarium with areas of encephalomalacia in the underlying bila teral frontal lobes, right greater than left. Small focal area of encephalomalacia involving the jones perior aspect of the right cerebellar hemisphere. Severe chronic-appearing microvascular ischemic ch anges of the supratentorial white matter. Mild disproportionate enlargement of the ventricular system in comparison to the overlying sulci whi ch can be seen in patients with normal pressure or communicating hydrocephalus. MRI of the brain may be useful for further evaluation. RPTAT: AADD .Darrion Pulido MD, MD Date Time Electronically viewed and signed by .Darrion Pulido MD, on 09/10/2016 11:52 .B/
--- NOTE | 2016-09-10 18:19 | CONS ---
Date/Time of Note Date/Time of Note DATE: 09/10/16 TIME: 18:03 Assessment/Plan Assessment/Plan Chief Complaint/Hosp Course - sepsis due to HCAP - HCAP due to pseudomonas - VDRF with trach - G tube dependent - h/o intracranial bleed s/p craniotomy - ESRD on HD - hyponatremia - T2DM - Hgb A1c 4.8% 08/08/16 per [facility] records - HTN associated with DM - anemia of CKD - thrombocytosis - BPH - Hx prostate CA per SNF records ([facility]) recommendations: - continue renally dosed cefepime (08/29/2016-) for pseudomonas, plan for 2 weeks through 09/12/2016 Management d/w CALE Mao and Dr. Burleson Problems: Consultation Date/Type/Reason Admit Date/Time Aug 29, 2016 at 16:21 Initial Consult Date 08/31/16 Type of Consultation: Infectious Disease Referring Provider: CANDY JUAREZ 24 HR Interval Summary Free Text/Dictation Pt currently getting HD. Pt more lethargic today and CT brain was done which showed no acute findings per d/w nursing. Unable to perform ROS d/t chronic encephalopathy. Pt is non verbal at baseline. Chart reviewed. Exam/Review of Systems Vital Signs Vitals Vital Signs Date Time Temp Pulse Resp B/P Pulse Ox O2 Delivery O2 Flow Rate FiO2 09/10/16 17:46 95 09/10/16 16:25 16 09/10/16 16:14 97 Aerosol 5.0 28 09/10/16 07:27 98.1 139/65 Intake and Output 09/09/16 09/09/16 09/10/16 15:00 23:00 07:00 Intake Total 660 ml 710 ml Balance 660 ml 710 ml Exam Constitutional: other (Sleeping), well developed Head: normocephalic Neck: other (tracheostomy midline; on ventilator support) Respiratory: clear to auscultation, other (right chest wall HD catheter intact) Cardiovascular: nl pulses, regular rate and rhythm Gastrointestinal: bowel sounds (present), other (G tube intact with tube feeds) , soft Extremities: normal pulses, other (atrophy noted), No clubbing, No cyanosis Neurological: lethargic, other (grimaces to painful stimuli) Skin: nl turgor, other (wounds- see nurse note and photos in chart for details) , No rash or lesions Results Result Diagram: 09/10/16 0510 09/10/16 0510 Results 24 hrs Laboratory Tests Test 09/09/16 23:54 09/10/16 05:10 09/10/16 05:35 09/10/16 10:34 Bedside Glucose 124 144 155 White Blood Count 6.9 Red Blood Count 3.44 L Hemoglobin 9.8 L Hematocrit 30.3 L Mean Corpuscular Volume 88.1 Mean Corpuscular Hemoglobin 28.5 L Mean Corpuscular Hemoglobin Concent 32.3 Red Cell Distribution Width 16.5 H Platelet Count 559 H Mean Platelet Volume 9.9 Neutrophils % 75.4 Lymphocytes % 12.6 L Monocytes % 6.7 Eosinophils % 3.3 Basophils % 0.6 Nucleated Red Blood Cells % 0.0 Neutrophils # 5.2 Lymphocytes # 0.9 Monocytes # 0.5 Eosinophils # 0.2 Basophils # 0.0 Nucleated Red Blood Cells # 0.0 Sodium Level 132 L Potassium Level 5.0 Chloride Level 91 L Carbon Dioxide Level 26 Anion Gap 20 H Blood Urea Nitrogen 114 #H Creatinine 6.99 H Glucose Level 124 Calcium Level 10.8 H Parathyroid Hormone (Intact) Test 09/10/16 12:56 09/10/16 17:32 Bedside Glucose 111 126 Medications Medications Current Medications Amlodipine Besylate (Norvasc) 5 mg DAILY GTB Last administered on 09/10/16 10: 07; Admin Dose 5 MG; Start 08/30/16 at 09:00 Clonidine (Catapres) 0.1 mg DAILY PRN GTB ELEVATED SYSTOLIC BP; Start 08/29/16 at 23:00 Doxazosin Mesylate (Cardura) 2 mg QHS GTB Last administered on 09/09/16 20:31; Admin Dose 2 MG; Start 08/30/16 at 21:00 Folic Acid (Folic Acid) 1 mg DAILY GTB Last administered on 09/10/16 10:05; Admin Dose 1 MG; Start 08/30/16 at 09:00 Hydralazine HCl (Apresoline) 50 mg Q8 GTB Last administered on 09/10/16 13:11; Admin Dose 50 MG; Start 08/30/16 at 06:00 Levetiracetam (Keppra Liquid) 500 mg BID GTB Last administered on 09/10/16 10: 05; Admin Dose 500 MG; Start 08/30/16 at 09:00 Metoprolol Tartrate (Lopressor) 25 mg BID GTB Last administered on 09/10/16 10: 06; Admin Dose 25 MG; Start 08/30/16 at 09:00 Multivit/Ca Carb/ B Cmplx/FA/Prenat (Leah-Juan Jose) 1 tab DAILY GTB Last administered on 09/10/16 10:05; Admin Dose 1 TAB; Start 08/30/16 at 09:00 Ondansetron HCl (Zofran Tab) 4 mg Q6H PRN GTB NAUSEA AND/OR VOMITING; Start at 23:00 Senna (Senokot) 1 tab DAILY GTB Last administered on 09/10/16 10:05; Admin Dose 1 TAB; Start 08/30/16 at 09:00 Zolpidem Tartrate (Ambien) 5 mg QHS PRN GTB INSOMNIA; Start 08/29/16 at 23:00 Lansoprazole (Prevacid) 30 mg DAILY@06 GTB Last administered on 09/10/16 05:25 ; Admin Dose 30 MG; Start 08/30/16 at 06:00 Acetaminophen (Tylenol Liquid) 650 mg Q4H PRN GTB PAIN AND OR ELEVATED TEMP Last administered on 09/02/16 11:36; Admin Dose 650 MG; Start 08/29/16 at 23:00 Insulin Aspart NOVOLOG *MILD* ALGORI... Q6 SC Last administered on 09/10/16 05: 40; Admin Dose 1 UNIT; Start 08/30/16 at 00:00 Cefepime HCl (Maxipime 1gm/50 ml (Pmx)) 50 ml @ 100 mls/hr Q24H IVPB Last administered on 09/10/16 10:07; Admin Dose 100 MLS/HR; Start 08/31/16 at 09:00 Miscellaneous Information 1 ea NOTE XX ; Start 08/31/16 at 07:00 Glucose (Glutose) 15 gm Q15M PRN PO DECREASED GLUCOSE; Start 08/31/16 at 07:00 Glucose (Glutose) 22.5 gm Q15M PRN PO DECREASED GLUCOSE; Start 08/31/16 at 07: 00 Dextrose (D50w Syringe) 25 ml Q15M PRN IV DECREASED GLUCOSE; Start 08/31/16 at 07:00 Dextrose (D50w Syringe) 50 ml Q15M PRN IV DECREASED GLUCOSE; Start 08/31/16 at 07:00 Glucagon (Glucagen) 1 mg Q15M PRN IM DECREASED GLUCOSE; Start 08/31/16 at 07:00 Glucose (Glutose) 15 gm Q15M PRN BUCCAL DECREASED GLUCOSE; Start 08/31/16 at 07 :00 Insulin Detemir (Levemir) 12 unit HS SC Last administered on 09/09/16 20:37; Admin Dose 12 UNIT; Start 09/03/16 at 21:00 Bacitracin/ Polymyxin B Sulfate (Ak-Poly-Anais Oph Oint) 1 applic BID BOTH EYES Last administered on 09/10/16 10:04; Admin Dose 1 APPLIC; Start 09/08/16 at 12:[address] brain 09/10/16: No acute intracranial abnormalities. Postoperative changes of the frontal calvarium with areas of encephalomalacia in the underlying bilateral frontal lobes, right greater than left. Small focal area of encephalomalacia involving the superior aspect of the right cerebellar hemisphere. Severe chronic-appearing microvascular ischemic changes of the supratentorial white matter. Mild disproportionate enlargement of the ventricular system in comparison to the overlying sulci which can be seen in patients with normal pressure or communicating hydrocephalus. MRI of the brain may be useful for further evaluation. CXR 08/31/16: No acute cardiopulmonary disease. NOVA HACKETT NP September 10, 2016 18:14
--- NOTE | 2016-09-10 18:23 | PN ---
Date/Time of Note Date/Time of Note DATE: 09/10/16 TIME: 18:16 Assessment/Plan VTE Prophylaxis VTE Prophylaxis Intervention: SCD's Lines/Catheters [facility] PERMACATH Urinary Cath still in place: No Assessment/Plan Chief Complaint/Hosp Course Assessment/Plan - Sepsis secondary to HCAP. Continue antibiotics per ID. Dr. Benjy lang is following in infection disease consultation. - HCAP. Sputum cultures positive for Pseudomonas. Pending respiratory viral panel. Continue contact isolation. - Chronic respiratory failure with tracheostomy, currently on T-piece. Dr. Freitas is following in pulmonology consultation - End-stage renal disease on hemodialysis. Continue hemodialysis per nephrology. Dr. Sales is following in nephrology consultation. - Hypertension. Continue metoprolol and hydralazine. - History of nontraumatic intracranial bleed, status post craniotomy. - Possible seizure disorder. Continue Keppra. - Diabetes. Continue Levemir and NovoLog per mild algorithm sliding scale. - Anemia of chronic kidney disease. - Acute on chronic encephalopathy. Further recommendations based on clinical course. Plan of care discussed with Dr. Godinez. Problems: Subjective 24 Hr Interval Summary Free Text/Dictation Patient is more lethargic today than usual, underwent CT of the head, which was negative for any acute stroke, patient is a pending hemodialysis today, remains afebrile and hemodynamically stable. Exam/Review of Systems Vital Signs Vitals Vital Signs Date Time Temp Pulse Resp B/P Pulse Ox O2 Delivery O2 Flow Rate FiO2 09/10/16 17:46 95 09/10/16 16:25 16 09/10/16 16:14 97 Aerosol 5.0 28 09/10/16 07:27 98.1 139/65 Intake and Output 09/09/16 09/09/16 09/10/16 15:00 23:00 07:00 Intake Total 660 ml 710 ml Balance 660 ml 710 ml Exam Constitutional: alert, oriented Psych: no complaints Head: atraumatic, normocephalic Eyes: nl conjunctiva ENMT: nl external ears & nose Neck: other (Tracheostomy), supple Respiratory: diminished breath sounds, rhonchi bilaterally, copious secretions from tracheostomy. Cardiovascular: regular rate and rhythm Gastrointestinal: non-tender, other (G-tube), soft Musculoskeletal: nl extremities to inspection Extremities: normal pulses Neurological: confused Additional Comments Right chest permacath Results Result Diagram: 09/10/16 0510 09/10/16 0510 Results 24 hrs Laboratory Tests Test 09/09/16 23:54 09/10/16 05:10 09/10/16 05:35 09/10/16 10:34 Bedside Glucose 124 144 155 White Blood Count 6.9 Red Blood Count 3.44 L Hemoglobin 9.8 L Hematocrit 30.3 L Mean Corpuscular Volume 88.1 Mean Corpuscular Hemoglobin 28.5 L Mean Corpuscular Hemoglobin Concent 32.3 Red Cell Distribution Width 16.5 H Platelet Count 559 H Mean Platelet Volume 9.9 Neutrophils % 75.4 Lymphocytes % 12.6 L Monocytes % 6.7 Eosinophils % 3.3 Basophils % 0.6 Nucleated Red Blood Cells % 0.0 Neutrophils # 5.2 Lymphocytes # 0.9 Monocytes # 0.5 Eosinophils # 0.2 Basophils # 0.0 Nucleated Red Blood Cells # 0.0 Sodium Level 132 L Potassium Level 5.0 Chloride Level 91 L Carbon Dioxide Level 26 Anion Gap 20 H Blood Urea Nitrogen 114 #H Creatinine 6.99 H Glucose Level 124 Calcium Level 10.8 H Parathyroid Hormone (Intact) Test 09/10/16 12:56 09/10/16 17:32 Bedside Glucose 111 126 Medications Medications Current Medications Amlodipine Besylate (Norvasc) 5 mg DAILY GTB Last administered on 09/10/16 10: 07; Admin Dose 5 MG; Start 08/30/16 at 09:00 Clonidine (Catapres) 0.1 mg DAILY PRN GTB ELEVATED SYSTOLIC BP; Start 08/29/16 at 23:00 Doxazosin Mesylate (Cardura) 2 mg QHS GTB Last administered on 09/09/16 20:31; Admin Dose 2 MG; Start 08/30/16 at 21:00 Folic Acid (Folic Acid) 1 mg DAILY GTB Last administered on 09/10/16 10:05; Admin Dose 1 MG; Start 08/30/16 at 09:00 Hydralazine HCl (Apresoline) 50 mg Q8 GTB Last administered on 09/10/16 13:11; Admin Dose 50 MG; Start 08/30/16 at 06:00 Levetiracetam (Keppra Liquid) 500 mg BID GTB Last administered on 09/10/16 10: 05; Admin Dose 500 MG; Start 08/30/16 at 09:00 Metoprolol Tartrate (Lopressor) 25 mg BID GTB Last administered on 09/10/16 10: 06; Admin Dose 25 MG; Start 08/30/16 at 09:00 Multivit/Ca Carb/ B Cmplx/FA/Prenat (Leah-Juan Jose) 1 tab DAILY GTB Last administered on 09/10/16 10:05; Admin Dose 1 TAB; Start 08/30/16 at 09:00 Ondansetron HCl (Zofran Tab) 4 mg Q6H PRN GTB NAUSEA AND/OR VOMITING; Start at 23:00 Senna (Senokot) 1 tab DAILY GTB Last administered on 09/10/16 10:05; Admin Dose 1 TAB; Start 08/30/16 at 09:00 Zolpidem Tartrate (Ambien) 5 mg QHS PRN GTB INSOMNIA; Start 08/29/16 at 23:00 Lansoprazole (Prevacid) 30 mg DAILY@06 GTB Last administered on 09/10/16 05:25 ; Admin Dose 30 MG; Start 08/30/16 at 06:00 Acetaminophen (Tylenol Liquid) 650 mg Q4H PRN GTB PAIN AND OR ELEVATED TEMP Last administered on 09/02/16 11:36; Admin Dose 650 MG; Start 08/29/16 at 23:00 Insulin Aspart NOVOLOG *MILD* ALGORI... Q6 SC Last administered on 09/10/16 05: 40; Admin Dose 1 UNIT; Start 08/30/16 at 00:00 Cefepime HCl (Maxipime 1gm/50 ml (Pmx)) 50 ml @ 100 mls/hr Q24H IVPB Last administered on 09/10/16 10:07; Admin Dose 100 MLS/HR; Start 08/31/16 at 09:00 Miscellaneous Information 1 ea NOTE XX ; Start 08/31/16 at 07:00 Glucose (Glutose) 15 gm Q15M PRN PO DECREASED GLUCOSE; Start 08/31/16 at 07:00 Glucose (Glutose) 22.5 gm Q15M PRN PO DECREASED GLUCOSE; Start 08/31/16 at 07: 00 Dextrose (D50w Syringe) 25 ml Q15M PRN IV DECREASED GLUCOSE; Start 08/31/16 at 07:00 Dextrose (D50w Syringe) 50 ml Q15M PRN IV DECREASED GLUCOSE; Start 08/31/16 at 07:00 Glucagon (Glucagen) 1 mg Q15M PRN IM DECREASED GLUCOSE; Start 08/31/16 at 07:00 Glucose (Glutose) 15 gm Q15M PRN BUCCAL DECREASED GLUCOSE; Start 08/31/16 at 07 :00 Insulin Detemir (Levemir) 12 unit HS SC Last administered on 09/09/16 20:37; Admin Dose 12 UNIT; Start 09/03/16 at 21:00 Bacitracin/ Polymyxin B Sulfate (Ak-Poly-Anais Oph Oint) 1 applic BID BOTH EYES Last administered on 09/10/16 10:04; Admin Dose 1 APPLIC; Start 09/08/16 at 12:00 NOELLE JIMENEZ September 10, 2016 18:23
[2016-09-10] MEDS: DOXAZOSIN 2 MG TAB GTB SCH (21:00)
[2016-09-10] MEDS: INSULIN DETEMIR [LEVEMIR] 3ML CART SC SCH (21:32)
[2016-09-11] VITALS: BP 113/59; RESP 18
[2016-09-11] MEDS: INSULIN ASPART [NOVOLOG] 3 ML PEN SC SCH ×5 (00:38→23:32)
--- NOTE | 2016-09-11 05:19 | PN ---
DATE: 09/10/2016 SUBJECTIVE: The patient is stable. No events overnight. The patient had hemodialysis today. OBJECTIVE: VITAL SIGNS: Blood pressure 139/65, respirations 20, pulse 77, temperature 98.1. HEENT: Head is normocephalic. NECK: Supple. HEART: Regular rate. LUNGS: Show diminished breath sounds at the base. ABDOMEN: Soft, nontender to palpation. Positive PEG. EXTREMITIES: Negative for clubbing, cyanosis. No edema. DERMATOLOGIC: No rashes. MUSCULOSKELETAL: No joint effusions. NEUROLOGIC: No change in exam. MEDICATIONS: Patient's medication has been reviewed. LABORATORY DATA: Sodium 132, potassium 5.0, BUN 114, creatinine 6.99, calcium 10.8. White count 6. 9, hemoglobin 11.8, hematocrit 33.3, platelet count is 559. ASSESSMENT AND PLAN: 1. End-stage renal disease. The patient will have hemodialysis today for 3 hours, 3K bath, calcium 2.5, possible hemodialysis tomorrow for further solute clearance. 2. Hyponatremia secondary to end-stage renal disease. Continue dialysis 140 sodium bath, limit melida e water intake. 3. Anemia. Continue to monitor H and H levels. We will continue Epogen following dialysis. 4. Mineral bone disorder. The patient remains hypocalcemic. We will check a PTH level, will dialy ze on a low calcium bath. 5. Hypertension. Continue current blood pressure regimen. 6. Sepsis secondary to pneumonia. Continue current antibiotic regimen. 7. Chronic respiratory failure, status post tracheostomy, stable on trach mask. Continue to monito r. 8. Dysphagia status post PEG. Continue tube feed. 9. Diabetes, continue Accu-Cheks and sliding scale. 10. Chronic encephalopathy. No change. 11. Seizure disorder. Continue medical management. 12. History of intracranial bleed. Dictated By: MARYURI WALLER/FRANCES Conf#: [id number] DID#: [id number]
[2016-09-11 05:36] LABS: ADD SCAN DIFF NO
[2016-09-11] MEDS: LANSOPRAZOLE 30 MG CAP GTB SCH (05:44)
[2016-09-11 05:45] VITALS: BP 128/59; RESP 18
[2016-09-11 06:16] LABS: CALCIUM 10.4 mg/dl (8.4-10.2); CREATININE 5.08 mg/dl (0.61-1.24); MAGNESIUM 2.7 mg/dl (1.7-2.5); PHOSPHORUS 3.4 mg/dl (2.5-4.9); POTASSIUM 4.5 mmol/L (3.5-5.1)
[2016-09-11] MEDS: LEVALBUTEROL (NEB) 0.63 MG/3 ML AMP NEB SCH ×4 (07:33→20:16)
[2016-09-11 07:39] VITALS: BP 125/59; RESP 16
[2016-09-11] MEDS: SEVELAMER CARBONATE 0.8 GM PKT GTB SCH ×3 (08:46→18:27)
[2016-09-11] MEDS: MULTIVIT/CA CARB/B CMPLX/FA TAB GTB SCH (08:47)
[2016-09-11] MEDS: SENNA TAB GTB SCH (08:47)
[2016-09-11] MEDS: FOLIC ACID 1 MG TAB GTB SCH (08:47)
[2016-09-11] MEDS: LEVETIRACETAM (100 MG/ML) 5ML CUP GTB SCH ×2 (08:47→21:25)
[2016-09-11] MEDS: BACITRACIN/POLYMYX 3.5 GM OPH OINT BOTH EYES SCH ×2 (08:48→21:26)
[2016-09-11] MEDS: METOPROLOL 25 MG TAB GTB SCH ×2 (08:50→21:26)
[2016-09-11] MEDS: AMLODIPINE 5 MG TAB GTB SCH (08:50)
[2016-09-11 09:15] LABS: BASOPHILS % 0.4 % (0.0-2.0); EOSINOPHILS # 0.2 10^3/ul (0.0-0.5); EOSINOPHILS % 2.2 % (0.0-7.0); HEMATOCRIT 31.1 % (42.0-52.0); HEMOGLOBIN 9.8 g/dl (14.0-18.0); LYMPHOCYTES # 0.9 10^3/ul (0.8-2.9); LYMPHOCYTES % 11.3 % (15.0-51.0); MEAN CORPUSCULAR HEMOGLOBIN 28.4 pg (29.0-33.0); MEAN CORPUSCULAR HGB CONC 31.5 g/dl (32.0-37.0); MEAN CORPUSCULAR VOLUME 90.1 fl (82.0-101.0); MEAN PLATELET VOLUME 10.1 fl (7.4-10.4); MONOCYTE # 0.5 10^3/ul (0.3-0.9); MONOCYTES % 6.3 % (0.0-11.0); NEUTROPHIL # 6.4 10^3/ul (1.6-7.5); NEUTROPHILS % 78.8 % (39.0-77.0); PLATELET COUNT 523 10^3/UL (140-415); RED BLOOD COUNT 3.45 10^6/ul (4.70-6.10); RED CELL DISTRIBUTION WIDTH 16.9 % (11.5-14.5); WHITE BLOOD COUNT 8.1 10^3/ul (4.8-10.8)
[2016-09-11] MEDS: CEFEPIME 1GM/50 ML (PMX) 50 ML IVPB SCH (09:35)
--- NOTE | 2016-09-11 10:28 | PN ---
DATE: 09/11/2016 SUBJECTIVE: The patient had hemodialysis yesterday, tolerated well. The patient scheduled for dial ysis again today. No other events noted. OBJECTIVE: VITAL SIGNS: Blood pressure 125/59, respirations 16, pulse 92, temperature 99.5. HEENT: Head is normocephalic. NECK: Shows trach. HEART: Regular rate. LUNGS: Show diminished breath sounds at the bases. ABDOMEN: Soft, nontender to palpation. No rebound or guarding. EXTREMITIES: Negative for clubbing, cyanosis. No edema. DERMATOLOGIC: No rashes. MUSCULOSKELETAL: No joint effusions. NEUROLOGIC: No change in exam. MEDICATIONS: The patient's medications have been reviewed. LABORATORY DATA: Shows sodium 132, potassium 4.5, BUN 74, creatinine 5.08, calcium 10.4, magnesium 2.7. ASSESSMENT AND PLAN: 1. End-stage renal disease. The patient had hemodialysis today. We will plan for dialysis tomorro w. 2. Hyponatremia. Continue dialysis at 140 sodium bath. Limit free water intake. 3. Anemia. Continue to monitor hemoglobin and hematocrit levels. Continue Epogen. 4. Mineral body disorder. Continue to monitor calcium and phosphorus levels. The patient's PTH le vels are pending. This patient is hypercalcemic. 5. Hypertension. Continue current blood pressure regimen. 6. Sepsis secondary to pneumonia. The patient is completing antibiotic course. 7. Chronic respiratory failure, status post tracheostomy. 8. Dysphagia, status post percutaneous endoscopic gastrostomy. 9. Diabetes. Continue current insulin regimen. 10. Chronic encephalopathy. No change. 11. Seizure disorder. Continue medical management. 12. History of intracranial bleed. Dictated By: MARYURI WALLER/FRANCES Conf#: [id number] DID#: [id number]
[2016-09-11 14:56] VITALS: BP 130/62; PULSE 82; RESP 18
--- NOTE | 2016-09-11 16:05 | PN ---
Date/Time of Note Date/Time of Note DATE: 09/11/16 TIME: 16:01 Assessment/Plan VTE Prophylaxis VTE Prophylaxis Intervention: SCD's Lines/Catheters IV C[facility]ter Type (from [facility] permacath Urinary Cath still in place: No Assessment/Plan Chief Complaint/Hosp Course Assessment/Plan - Sepsis secondary to HCAP. Continue antibiotics per ID. Dr. Benjy lang is following in infection disease consultation. - HCAP. Sputum cultures positive for Pseudomonas. Pending respiratory viral panel. Continue contact isolation. - Chronic respiratory failure with tracheostomy, currently on T-piece. Dr. Freitas is following in pulmonology consultation - End-stage renal disease on hemodialysis. Continue hemodialysis per nephrology. Dr. Sales is following in nephrology consultation. - Hypertension. Continue metoprolol and hydralazine. - History of nontraumatic intracranial bleed, status post craniotomy. - Possible seizure disorder. Continue Keppra. - Diabetes. Continue Levemir and NovoLog per mild algorithm sliding scale. - Anemia of chronic kidney disease. - Acute on chronic encephalopathy. Further recommendations based on clinical course. Plan of care discussed with Dr. Godinez. Problems: Subjective 24 Hr Interval Summary Free Text/Dictation Patient's continues to be lethargic, T-max is 99.5, stable heart rate and blood pressure, is currently on antibiotics, pending dialysis tomorrow Exam/Review of Systems Vital Signs Vitals Vital Signs Date Time Temp Pulse Resp B/P Pulse Ox O2 Delivery O2 Flow Rate FiO2 09/11/16 14:56 99.1 82 18 130/62 100 Trach Collar 5.0 09/11/16 14:56 28 Intake and Output 09/10/16 09/10/16 09/11/16 15:00 23:00 07:00 Intake Total 1210 ml 660 ml Output Total 2500 ml Balance -1290 ml 660 ml Exam Constitutional: lethargic Psych: no complaints Head: atraumatic, normocephalic Eyes: nl conjunctiva ENMT: nl external ears & nose Neck: other (Tracheostomy), supple Respiratory: diminished breath sounds, rhonchi bilaterally, copious secretions from tracheostomy. Cardiovascular: regular rate and rhythm Gastrointestinal: non-tender, other (G-tube), soft Musculoskeletal: nl extremities to inspection Extremities: normal pulses Neurological: confused Additional Comments Right chest permacath Results Result Diagram: 5/9/17 0508 09/11/16 0508 Results 24 hrs Laboratory Tests Test 09/10/16 17:32 09/10/16 21:30 09/11/16 00:34 09/11/16 05:08 Bedside Glucose 126 209 199 White Blood Count 8.1 Red Blood Count 3.45 L Hemoglobin 9.8 L Hematocrit 31.1 L Mean Corpuscular Volume 90.1 Mean Corpuscular Hemoglobin 28.4 L Mean Corpuscular Hemoglobin Concent 31.5 L Red Cell Distribution Width 16.9 H Platelet Count 523 H Mean Platelet Volume 10.1 Neutrophils % 78.8 H Lymphocytes % 11.3 L Monocytes % 6.3 Eosinophils % 2.2 Basophils % 0.4 Nucleated Red Blood Cells % 0.0 Neutrophils # 6.4 Lymphocytes # 0.9 Monocytes # 0.5 Eosinophils # 0.2 Basophils # 0.0 Nucleated Red Blood Cells # 0.0 Sodium Level 132 L Potassium Level 4.5 Chloride Level 94 L Carbon Dioxide Level 29 Anion Gap 14 Blood Urea Nitrogen 74 #H Creatinine 5.08 H Glucose Level 117 Calcium Level 10.4 H Phosphorus Level 3.4 Magnesium Level 2.7 H Test 09/11/16 05:40 09/11/16 07:34 09/11/16 12:39 Bedside Glucose 89 113 136 Medications Medications Current Medications Amlodipine Besylate (Norvasc) 5 mg DAILY GTB Last administered on 09/11/16 08: 50; Admin Dose 5 MG; Start 08/30/16 at 09:00 Clonidine (Catapres) 0.1 mg DAILY PRN GTB ELEVATED SYSTOLIC BP; Start 08/29/16 at 23:00 Doxazosin Mesylate (Cardura) 2 mg QHS GTB Last administered on 09/09/16 20:31; Admin Dose 2 MG; Start 08/30/16 at 21:00 Folic Acid (Folic Acid) 1 mg DAILY GTB Last administered on 09/11/16 08:47; Admin Dose 1 MG; Start 08/30/16 at 09:00 Hydralazine HCl (Apresoline) 50 mg Q8 GTB Last administered on 09/11/16 14:59; Admin Dose 50 MG; Start 08/30/16 at 06:00 Levetiracetam (Keppra Liquid) 500 mg BID GTB Last administered on 09/11/16 08: 47; Admin Dose 500 MG; Start 08/30/16 at 09:00 Metoprolol Tartrate (Lopressor) 25 mg BID GTB Last administered on 09/11/16 08: 50; Admin Dose 25 MG; Start 08/30/16 at 09:00 Multivit/Ca Carb/ B Cmplx/FA/Prenat (Leah-Juan Jose) 1 tab DAILY GTB Last administered on 09/11/16 08:47; Admin Dose 1 TAB; Start 08/30/16 at 09:00 Ondansetron HCl (Zofran Tab) 4 mg Q6H PRN GTB NAUSEA AND/OR VOMITING; Start at 23:00 Senna (Senokot) 1 tab DAILY GTB Last administered on 09/11/16 08:47; Admin Dose 1 TAB; Start 08/30/16 at 09:00 Zolpidem Tartrate (Ambien) 5 mg QHS PRN GTB INSOMNIA; Start 08/29/16 at 23:00 Lansoprazole (Prevacid) 30 mg DAILY@06 GTB Last administered on 09/11/16 05:44 ; Admin Dose 30 MG; Start 08/30/16 at 06:00 Acetaminophen (Tylenol Liquid) 650 mg Q4H PRN GTB PAIN AND OR ELEVATED TEMP Last administered on 09/02/16 11:36; Admin Dose 650 MG; Start 08/29/16 at 23:00 Insulin Aspart NOVOLOG *MILD* ALGORI... Q6 SC Last administered on 09/11/16 00: 38; Admin Dose 2 UNIT; Start 08/30/16 at 00:00 Cefepime HCl (Maxipime 1gm/50 ml (Pmx)) 50 ml @ 100 mls/hr Q24H IVPB Last administered on 09/11/16 09:35; Admin Dose 100 MLS/HR; Start 08/31/16 at 09:00 Miscellaneous Information 1 ea NOTE XX ; Start 08/31/16 at 07:00 Glucose (Glutose) 15 gm Q15M PRN PO DECREASED GLUCOSE; Start 08/31/16 at 07:00 Glucose (Glutose) 22.5 gm Q15M PRN PO DECREASED GLUCOSE; Start 08/31/16 at 07: 00 Dextrose (D50w Syringe) 25 ml Q15M PRN IV DECREASED GLUCOSE; Start 08/31/16 at 07:00 Dextrose (D50w Syringe) 50 ml Q15M PRN IV DECREASED GLUCOSE; Start 08/31/16 at 07:00 Glucagon (Glucagen) 1 mg Q15M PRN IM DECREASED GLUCOSE; Start 08/31/16 at 07:00 Glucose (Glutose) 15 gm Q15M PRN BUCCAL DECREASED GLUCOSE; Start 08/31/16 at 07 :00 Insulin Detemir (Levemir) 12 unit HS SC Last administered on 09/10/16 21:32; Admin Dose 12 UNIT; Start 09/03/16 at 21:00 Bacitracin/ Polymyxin B Sulfate (Ak-Poly-Anais Oph Oint) 1 applic BID BOTH EYES Last administered on 09/11/16 08:48; Admin Dose 1 APPLIC; Start 09/08/16 at 12:00 NOELLE JIMENEZ September 11, 2016 16:05
--- NOTE | 2016-09-11 16:41 | RADRPT ---
PROCEDURE: XR Chest. CLINICAL INDICATION: Shortness of breath. TECHNIQUE: Single frontal view. COMPARISON: 08/31/2016. FINDINGS: The tracheostomy tube and tunneled right internal jugular vein dialysis catheter remain in satisfact ory position. The lungs are clear. The heart size is normal. There is no pleural effusion. There is no pneumothorax. IMPRESSION: 1. Tracheostomy tube and tunneled right IJ catheter in satisfactory position. 2. Clear lungs. RPTAT: QQ .Santos Cole MD, Date Time Electronically viewed and signed by .Santos Cole MD, MD on 09/11/2016 16:41 .R/
[2016-09-11 19:31] VITALS: BP 114/55; RESP 18
[2016-09-11] MEDS: DOXAZOSIN 2 MG TAB GTB SCH (21:25)
[2016-09-11] MEDS: INSULIN DETEMIR [LEVEMIR] 3ML CART SC SCH (21:32)
[2016-09-12] VITALS (11 sets, daily range): BP systolic 106–148; BP diastolic 43–78; PULSE 99–119; RESP 16–18
[2016-09-12] MEDS: LANSOPRAZOLE 30 MG CAP GTB SCH (06:14)
[2016-09-12] MEDS: INSULIN ASPART [NOVOLOG] 3 ML PEN SC SCH ×3 (06:19→18:00)
[2016-09-12 06:23] LABS: ADD SCAN DIFF NO
[2016-09-12 06:35] LABS: BASOPHILS % 0.5 % (0.0-2.0); EOSINOPHILS # 0.2 10^3/ul (0.0-0.5); EOSINOPHILS % 2.8 % (0.0-7.0); HEMATOCRIT 29.6 % (42.0-52.0); HEMOGLOBIN 9.4 g/dl (14.0-18.0); LYMPHOCYTES # 1.2 10^3/ul (0.8-2.9); LYMPHOCYTES % 13.6 % (15.0-51.0); MEAN CORPUSCULAR HEMOGLOBIN 28.6 pg (29.0-33.0); MEAN CORPUSCULAR HGB CONC 31.8 g/dl (32.0-37.0); MEAN PLATELET VOLUME 9.8 fl (7.4-10.4); MONOCYTE # 0.6 10^3/ul (0.3-0.9); MONOCYTES % 6.8 % (0.0-11.0); NEUTROPHIL # 6.5 10^3/ul (1.6-7.5); NEUTROPHILS % 75.5 % (39.0-77.0); PLATELET COUNT 513 10^3/UL (140-415); RED BLOOD COUNT 3.29 10^6/ul (4.70-6.10); RED CELL DISTRIBUTION WIDTH 16.8 % (11.5-14.5); WHITE BLOOD COUNT 8.6 10^3/ul (4.8-10.8)
[2016-09-12 06:45] LABS: POTASSIUM 4.8 mmol/L (3.5-5.1)
[2016-09-12 06:48] LABS: CREATININE 6.57 mg/dl (0.61-1.24)
[2016-09-12 06:49] LABS: CALCIUM 10.6 mg/dl (8.4-10.2)
[2016-09-12] MEDS: LEVALBUTEROL (NEB) 0.63 MG/3 ML AMP NEB SCH ×4 (08:35→20:17)
[2016-09-12] MEDS: SEVELAMER CARBONATE 0.8 GM PKT GTB SCH ×3 (09:37→18:08)
[2016-09-12] MEDS: FOLIC ACID 1 MG TAB GTB SCH (09:37)
[2016-09-12] MEDS: CEFEPIME 1GM/50 ML (PMX) 50 ML IVPB SCH (09:37)
[2016-09-12] MEDS: SENNA TAB GTB SCH (09:37)
[2016-09-12] MEDS: LEVETIRACETAM (100 MG/ML) 5ML CUP GTB SCH ×2 (09:37→21:32)
[2016-09-12] MEDS: MULTIVIT/CA CARB/B CMPLX/FA TAB GTB SCH (09:37)
[2016-09-12] MEDS: AMLODIPINE 5 MG TAB GTB SCH (09:38)
[2016-09-12] MEDS: METOPROLOL 25 MG TAB GTB SCH ×2 (09:38→21:33)
[2016-09-12] MEDS: BACITRACIN/POLYMYX 3.5 GM OPH OINT BOTH EYES SCH ×2 (09:39→21:34)
--- NOTE | 2016-09-12 10:02 | PN ---
DATE: 09/12/2016 SUBJECTIVE: The patient is stable. No events overnight. No fevers, chills, nausea, vomiting, no s hortness of breath. OBJECTIVE: VITAL SIGNS: Blood pressure is 133/66, respiration 18, pulse 113, temperature 99.0. HEENT: Head is normocephalic. NECK: Supple. HEART: Regular rate. LUNGS: Show diminished breath sounds at the base. ABDOMEN: Soft, nontender to palpation without rebound or guarding. EXTREMITIES: Negative for clubbing, cyanosis, no edema. DERMATOLOGIC: No rashes. MUSCULOSKELETAL: No joint effusions. NEUROLOGIC: No change in exam. MEDICATIONS: Reviewed. LABORATORY DATA: Shows sodium 131, potassium 4.8, chloride 92, BUN is 109, creatinine 6.56. White count 8.6, hemoglobin 9.4, hematocrit 29.6, platelet count is 513. IMAGING: Patient's chest x-ray September 11 was reviewed. ASSESSMENT AND PLAN: 1. End-stage renal disease. Patient scheduled for dialysis today for dialyzed 3 hours, 2K bath, ca lcium 2.5. 2. Hyponatremia secondary to end-stage renal disease. Continue to limit free water flushes, contin ue dialysis on a 140 sodium bath. 3. Anemia. Continue to monitor H and H levels. Continue Epogen. 4. Mineral bone disorder. Continue to monitor calcium and phosphorous levels. Patient remains hypo calcemic. Will continue dialysis and low calcium bath. PTH levels are pending. 5. Hypertension. Continue current blood pressure regimen. 6. Sepsis secondary to pneumonia. The patient is completing antibiotic course. 7. Chronic respiratory failure, status post tracheostomy 8. Dysphagia, status post percutaneous endoscopic gastrostomy. Continue tube feeding. 9. Diabetes. Continue current insulin regimen. 10. Chronic encephalopathy. No change. 11. Seizure disorder. Continue medical management. 12. History of intracranial bleed. Dictated By: MARYURI WALLER/FRANCES Conf#: [id number] DID#: [id number]
--- NOTE | 2016-09-12 13:21 | PN ---
Date/Time of Note Date/Time of Note DATE: 09/12/16 TIME: 13:19 Assessment/Plan VTE Prophylaxis VTE Prophylaxis Intervention: SCD's Lines/Catheters IV [facility]ter Type (from [facility]): Permacath Urinary Cath still in place: No Assessment/Plan Chief Complaint/Hosp Course Assessment/Plan - Acute on chronic encephalopathy, pending MRI of the brain. - Sepsis secondary to HCAP. Continue antibiotics per ID. Dr. Benjy lang is following in infection disease consultation. - HCAP. Sputum cultures positive for Pseudomonas. Continue antibiotics per ID. - Chronic respiratory failure with tracheostomy, currently on T-piece. Dr. Freitas is following in pulmonology consultation - End-stage renal disease on hemodialysis. Continue hemodialysis per nephrology. Dr. Sales is following in nephrology consultation. - Hypertension. Continue metoprolol and hydralazine. - History of nontraumatic intracranial bleed, status post craniotomy. - Possible seizure disorder. Continue Keppra. - Diabetes. Continue Levemir and NovoLog per mild algorithm sliding scale. - Anemia of chronic kidney disease. - Acute on chronic encephalopathy. Further recommendations based on clinical course. Plan of care discussed with Dr. Godinez. Problems: Exam/Review of Systems Vital Signs Vitals Vital Signs Date Time Temp Pulse Resp B/P Pulse Ox O2 Delivery O2 Flow Rate FiO2 09/12/16 09:45 5.0 09/12/16 09:34 98.7 119 16 113/53 98 Trach Collar 09/12/16 08:43 28 Intake and Output 09/11/16 09/11/16 09/12/16 15:00 23:00 07:00 Intake Total 50 ml 660 ml Balance 50 ml 660 ml Exam Constitutional: lethargic Psych: no complaints Head: atraumatic, normocephalic Eyes: nl conjunctiva ENMT: nl external ears & nose Neck: other (Tracheostomy), supple Respiratory: diminished breath sounds, rhonchi bilaterally, copious secretions from tracheostomy. Cardiovascular: regular rate and rhythm Gastrointestinal: non-tender, other (G-tube), soft Musculoskeletal: nl extremities to inspection Extremities: normal pulses Neurological: confused Additional Comments Right chest permacath Results Result Diagram: 09/12/16 0600 09/12/16 0600 Results 24 hrs Laboratory Tests Test 09/11/16 17:45 09/11/16 21:25 09/11/16 23:31 09/12/16 06:00 Bedside Glucose 124 122 124 White Blood Count 8.6 Red Blood Count 3.29 L Hemoglobin 9.4 L Hematocrit 29.6 L Mean Corpuscular Volume 90.0 Mean Corpuscular Hemoglobin 28.6 L Mean Corpuscular Hemoglobin Concent 31.8 L Red Cell Distribution Width 16.8 H Platelet Count 513 H Mean Platelet Volume 9.8 Neutrophils % 75.5 Lymphocytes % 13.6 L Monocytes % 6.8 Eosinophils % 2.8 Basophils % 0.5 Nucleated Red Blood Cells % 0.0 Neutrophils # 6.5 Lymphocytes # 1.2 Monocytes # 0.6 Eosinophils # 0.2 Basophils # 0.0 Nucleated Red Blood Cells # 0.0 Sodium Level 131 L Potassium Level 4.8 Chloride Level 92 L Carbon Dioxide Level 23 Anion Gap 21 #H Blood Urea Nitrogen 109 #H Creatinine 6.57 H Glucose Level 125 Calcium Level 10.6 H Ammonia 22 Test 09/12/16 06:16 09/12/16 12:21 09/12/16 12:39 Bedside Glucose 141 196 Lab Scanned Report REFERENCE LAB Medications Medications Current Medications Amlodipine Besylate (Norvasc) 5 mg DAILY GTB Last administered on 09/12/16 09: 38; Admin Dose 5 MG; Start 08/30/16 at 09:00 Clonidine (Catapres) 0.1 mg DAILY PRN GTB ELEVATED SYSTOLIC BP; Start 08/29/16 at 23:00 Doxazosin Mesylate (Cardura) 2 mg QHS GTB Last administered on 09/11/16 21:25; Admin Dose 2 MG; Start 08/30/16 at 21:00 Folic Acid (Folic Acid) 1 mg DAILY GTB Last administered on 09/12/16 09:37; Admin Dose 1 MG; Start 08/30/16 at 09:00 Hydralazine HCl (Apresoline) 50 mg Q8 GTB Last administered on 09/12/16 06:14 ; Admin Dose 50 MG; Start 08/30/16 at 06:00 Levetiracetam (Keppra Liquid) 500 mg BID GTB Last administered on 09/12/16 09: 37; Admin Dose 500 MG; Start 08/30/16 at 09:00 Metoprolol Tartrate (Lopressor) 25 mg BID GTB Last administered on 09/12/16 09 :38; Admin Dose 25 MG; Start 08/30/16 at 09:00 Multivit/Ca Carb/ B Cmplx/FA/Prenat (Leah-Juan Jose) 1 tab DAILY GTB Last administered on 09/12/16 09:37; Admin Dose 1 TAB; Start 08/30/16 at 09:00 Ondansetron HCl (Zofran Tab) 4 mg Q6H PRN GTB NAUSEA AND/OR VOMITING; Start at 23:00 Senna (Senokot) 1 tab DAILY GTB Last administered on 09/12/16 09:37; Admin Dose 1 TAB; Start 08/30/16 at 09:00 Zolpidem Tartrate (Ambien) 5 mg QHS PRN GTB INSOMNIA; Start 08/29/16 at 23:00 Lansoprazole (Prevacid) 30 mg DAILY@06 GTB Last administered on 09/12/16 06:14 ; Admin Dose 30 MG; Start 08/30/16 at 06:00 Acetaminophen (Tylenol Liquid) 650 mg Q4H PRN GTB PAIN AND OR ELEVATED TEMP Last administered on 09/02/16 11:36; Admin Dose 650 MG; Start 08/29/16 at 23:00 Insulin Aspart NOVOLOG *MILD* ALGORI... Q6 SC Last administered on 09/12/16 12 :36; Admin Dose 2 UNIT; Start 08/30/16 at 00:00 Cefepime HCl (Maxipime 1gm/50 ml (Pmx)) 50 ml @ 100 mls/hr Q24H IVPB Last administered on 09/12/16 09:37; Admin Dose 100 MLS/HR; Start 08/31/16 at 09:00 Miscellaneous Information 1 ea NOTE XX ; Start 08/31/16 at 07:00 Glucose (Glutose) 15 gm Q15M PRN PO DECREASED GLUCOSE; Start 08/31/16 at 07:00 Glucose (Glutose) 22.5 gm Q15M PRN PO DECREASED GLUCOSE; Start 08/31/16 at 07: 00 Dextrose (D50w Syringe) 25 ml Q15M PRN IV DECREASED GLUCOSE; Start 08/31/16 at 07:00 Dextrose (D50w Syringe) 50 ml Q15M PRN IV DECREASED GLUCOSE; Start 08/31/16 at 07:00 Glucagon (Glucagen) 1 mg Q15M PRN IM DECREASED GLUCOSE; Start 08/31/16 at 07:00 Glucose (Glutose) 15 gm Q15M PRN BUCCAL DECREASED GLUCOSE; Start 08/31/16 at 07 :00 Insulin Detemir (Levemir) 12 unit HS SC Last administered on 09/11/16 21:32; Admin Dose 12 UNIT; Start 09/03/16 at 21:00 Bacitracin/ Polymyxin B Sulfate (Ak-Poly-Anais Oph Oint) 1 applic BID BOTH EYES Last administered on 09/12/16 09:39; Admin Dose 1 APPLIC; Start 09/08/16 at 12: 00 NOELLE JIMENEZ September 12, 2016 13:21
--- NOTE | 2016-09-12 15:51 | RADRPT ---
PROCEDURE: MR Brain without contrast. CLINICAL INDICATION: Febrile, neurologic deficit TECHNIQUE: An MRI of the brain was performed on a high-resolution MR scanner utilizing the followi ng sequences: Sagittal and axial T1 weighted, axial T2 weighted, axial FLAIR, coronal GRE, and axial diffusion weighted with ADC mapping. Images were reviewed high-resolution PACS workstation. No con trast was administered. COMPARISON: Correlation head CT 09/10/2016 FINDINGS: Bilateral frontal craniotomy changes are identified. Beneath the right frontal craniotomy flap and along the right anterior falx is dural thickening measuring up to 2 mm. There is underlying encepha lomalacia in the bilateral frontal lobes and corpus callosum with associated GRE susceptibility. The re is also GRE susceptibility along the bilateral occipital horns of the lateral ventricles, bilater al cortical sulci, and along the surface of the brainstem and cerebellar folia. A left frontal allyssa etal extra-axial cystic structure is identified measuring 2.2 x 2.6 cm. Patchy T2 / FLAIR hyperinten se signal change in the cerebral white matter identified. No acute parenchymal hemorrhage or midline shift. No evidence of recent infarct. The ventricles are enlarged but stable size.. Normal flow voids are visible in the proximal intracranial arteries suggesting their patency. Scattered paranasal sinus mucosal thickening with retention cyst. Partially opacified bilateral mas toids. IMPRESSION: Bilateral frontal craniotomy changes with underlying bilateral frontal and corpus callosum encephalo malacia. GRE foci at this location corresponds to prior parenchymal hemorrhage. Beneath the right frontal craniotomy flap and along the right anterior falx is dural thickening measuring up to 2 mm. If there is high suspicion for meningitis, consider correlation with CSF studies. There is also GRE susceptibility along the bilateral occipital horns of the lateral ventricles, bila teral cortical sulci, and along the surface of the brainstem and cerebellar folia. This likely repre sents a sequela of prior subarachnoid and intraventricular hemorrhage with subsequent superficial si derosis. Chronic microvascular disease. No evidence of recent infarct. RPTAT: AA .Prabhu Nash MD, Date Time Electronically viewed and signed by .Prabhu Nash MD, on 09/12/2016 15:51 .T/
[2016-09-12] MEDS: DOXAZOSIN 2 MG TAB GTB SCH (21:33)
[2016-09-12] MEDS: INSULIN DETEMIR [LEVEMIR] 3ML CART SC SCH (21:35)
[2016-09-13] MEDS: INSULIN ASPART [NOVOLOG] 3 ML PEN SC SCH ×5 (01:04→23:54)
[2016-09-13 05:23] LABS: ADD SCAN DIFF NO
[2016-09-13 05:31] LABS: BASOPHIL # 0.1 10^3/ul (0.0-0.1); BASOPHILS % 0.7 % (0.0-2.0); EOSINOPHILS # 0.2 10^3/ul (0.0-0.5); EOSINOPHILS % 1.9 % (0.0-7.0); HEMATOCRIT 29.5 % (42.0-52.0); HEMOGLOBIN 9.5 g/dl (14.0-18.0); LYMPHOCYTES # 1.1 10^3/ul (0.8-2.9); MEAN CORPUSCULAR HEMOGLOBIN 28.8 pg (29.0-33.0); MEAN CORPUSCULAR HGB CONC 32.2 g/dl (32.0-37.0); MEAN CORPUSCULAR VOLUME 89.4 fl (82.0-101.0); MEAN PLATELET VOLUME 9.5 fl (7.4-10.4); MONOCYTE # 0.6 10^3/ul (0.3-0.9); MONOCYTES % 7.4 % (0.0-11.0); NEUTROPHIL # 6.3 10^3/ul (1.6-7.5); NEUTROPHILS % 76.3 % (39.0-77.0); PLATELET COUNT 519 10^3/UL (140-415); RED CELL DISTRIBUTION WIDTH 16.6 % (11.5-14.5); WHITE BLOOD COUNT 8.2 10^3/ul (4.8-10.8)
[2016-09-13 05:46] LABS: CALCIUM 10.5 mg/dl (8.4-10.2); CREATININE 4.73 mg/dl (0.61-1.24); POTASSIUM 4.1 mmol/L (3.5-5.1)
[2016-09-13] MEDS: LANSOPRAZOLE 30 MG CAP GTB SCH (06:11)
[2016-09-13 08:00] VITALS: BP 104/51; RESP 20
[2016-09-13] MEDS: FOLIC ACID 1 MG TAB GTB SCH (08:25)
[2016-09-13] MEDS: SENNA TAB GTB SCH (08:25)
[2016-09-13] MEDS: SEVELAMER CARBONATE 0.8 GM PKT GTB SCH ×3 (08:25→18:03)
[2016-09-13] MEDS: MULTIVIT/CA CARB/B CMPLX/FA TAB GTB SCH (08:25)
[2016-09-13] MEDS: LEVETIRACETAM (100 MG/ML) 5ML CUP GTB SCH ×2 (08:25→20:35)
[2016-09-13] MEDS: BACITRACIN/POLYMYX 3.5 GM OPH OINT BOTH EYES SCH ×2 (08:27→20:36)
[2016-09-13] MEDS: CEFEPIME 1GM/50 ML (PMX) 50 ML IVPB SCH (08:33)
[2016-09-13] MEDS: AMLODIPINE 5 MG TAB GTB SCH (09:00)
[2016-09-13] MEDS: LEVALBUTEROL (NEB) 0.63 MG/3 ML AMP NEB SCH ×4 (09:01→20:29)
--- NOTE | 2016-09-13 09:33 | PN ---
DATE: 09/13/2016 SUBJECTIVE: The patient had hemodialysis yesterday, tolerated well with 3 liters removed. No other events noted. No hemoptysis, hematemesis or hematochezia. OBJECTIVE: VITAL SIGNS: Blood pressure 104/51, respirations 20, pulse 110, temperature 98.0. HEENT: Head is normocephalic. NECK: Supple. HEART: Regular rate. LUNGS: Show diminished breath sounds at the base. ABDOMEN: Soft, nontender to palpation without guarding. EXTREMITIES: Negative for clubbing, cyanosis, edema. DERMATOLOGIC: No rashes. MUSCULOSKELETAL: No joint effusions. NEUROLOGIC: No change in exam. MEDICATIONS: The patient's medications have been reviewed. LABORATORY DATA: Shows a sodium 131, potassium 4.1, BUN 67, creatinine 4.73. White count 8.2, hemo globin 9.5, hematocrit 29.5, platelet count is 519. IMAGING: The patient's MRI was reviewed with findings that showed no evidence of infarct. ASSESSMENT AND PLAN: 1. End-stage renal disease. The patient had hemodialysis yesterday. Plan for dialysis tomorrow. 2. Hyponatremia, status history end state renal disease. Continue to limit free water flushes. Cont inue dialysis 140 sodium bath. 3. Anemia. Continue to monitor hemoglobin and hematocrit levels. Continue Epogen. 4. Mineral bone disorder. Continue to monitor calcium and phosphorus levels. Continue dialysis and low calcium bath. 4. Hypertension. Continue current blood pressure regimen. 5. Sepsis secondary to pneumonia, ____ completing antibiotic course. 6. Chronic respiratory failure, status post trach. 7. Dysphagia. Status post PEG tube, tube feeding. 8. Diabetes. Continue current insulin regimen. 9. Chronic encephalopathy. Patient is status post MRI, no acute CVA noted. Continue to monitor. 10. Seizure disorder. Continue current medical management. 11. History of intracranial bleed. Dictated By: MARYURI WALLER/FRANCES Conf#: [id number] DID#: [id number]
[2016-09-13] MEDS: ACETAMINOPHEN 650MG/20.3ML CUP GTB PRN (09:35)
[2016-09-13] MEDS: METOPROLOL 25 MG TAB GTB SCH ×2 (10:36→20:36)
--- NOTE | 2016-09-13 13:35 | CONS ---
Date/Time of Note Date/Time of Note DATE: 09/13/16 TIME: 13:28 Assessment/Plan Assessment/Plan Chief Complaint/Hosp Course - sepsis due to HCAP - HCAP due to pseudomonas - Chronic respiratory failure with trach - G tube dependent - h/o intracranial bleed s/p craniotomy - ESRD on HD - hyponatremia - T2DM - Hgb A1c 4.8% 08/08/16 per [facility] records - HTN associated with DM - anemia of CKD - thrombocytosis - BPH - Hx prostate CA per [facility] records ([facility]) - acute on chronic encephalopathy - MRI brain 09/12/16 showed no acute infarct - fever recommendations: - Stat blood cx x2 sets now - Blood cx x2 sets tomorrow from HD catheter to be done with next HD - Send sputum cx - Check lactic acid, procalcitonin, [id number] - Discontinue renally dosed cefepime (08/29/2016-) for pseudomonas as pt has completed at least 14 day course - Start broad spectrum abx (renally dosed): vanco/margaux/caspo - Repeat CXR Management d/w CALE Calero and Dr. Burleson Total time spent: 45 minutes including multiple d/w nursing staff Problems: Consultation Date/Type/Reason Admit Date/Time Aug 29, 2016 at 16:21 Initial Consult Date 08/31/16 Type of Consultation: Infectious Disease Referring Provider: CANDY JUAREZ 24 HR Interval Summary Free Text/Dictation Pt had HD yesterday; RUE AVF not yet mature and pt has Right IJ HD catheter. Febrile this AM 101.8 F, Tylenol given; mildly tachycardic with SBP 104; still with increased yellowish phlegm per d/w nursing staff. Unable to perform ROS d/t chronic encephalopathy. Pt is non verbal at baseline. Chart reviewed. Subjective hx not possible: pt non-verbal Exam/Review of Systems Vital Signs Vitals Vital Signs Date Time Temp Pulse Resp B/P Pulse Ox O2 Delivery O2 Flow Rate FiO2 09/13/16 12:54 92 18 99 Aerosol 5.0 28 T Tube 09/13/16 08:56 101.8 09/13/16 08:00 104/51 Intake and Output 09/12/16 09/12/16 09/13/16 15:00 23:00 07:00 Intake Total 350 ml 100 ml 680 ml Output Total 3300 ml Balance -2950 ml 100 ml 680 ml Exam Constitutional: other (Sleeping), well developed Head: normocephalic Neck: other (tracheostomy midline on T tube) Respiratory: clear to auscultation, other (right chest wall HD catheter intact) Cardiovascular: nl pulses, regular rate and rhythm Gastrointestinal: bowel sounds (present), other (G tube intact with tube feeds) , soft Extremities: normal pulses, other (atrophy noted; LUE HL with no e/o infection ; RUE AVF +bruit/thrill), No clubbing, No cyanosis Neurological: lethargic, other (grimaces to painful stimuli) Skin: nl turgor, other (wounds- see nurse note and photos in chart for details) , No rash or lesions Results Result Diagram: 09/13/1650909/13/16 05 Results 24 hrs Laboratory Tests Test 09/12/16 18:07 09/12/16 21:31 09/13/16 00:59 09/13/16 05:10 Bedside Glucose 137 162 191 White Blood Count 8.2 Red Blood Count 3.30 L Hemoglobin 9.5 L Hematocrit 29.5 L Mean Corpuscular Volume 89.4 Mean Corpuscular Hemoglobin 28.8 L Mean Corpuscular Hemoglobin Concent 32.2 Red Cell Distribution Width 16.6 H Platelet Count 519 H Mean Platelet Volume 9.5 Neutrophils % 76.3 Lymphocytes % 13.0 L Monocytes % 7.4 Eosinophils % 1.9 Basophils % 0.7 Nucleated Red Blood Cells % 0.0 Neutrophils # 6.3 Lymphocytes # 1.1 Monocytes # 0.6 Eosinophils # 0.2 Basophils # 0.1 Nucleated Red Blood Cells # 0.0 Sodium Level 131 L Potassium Level 4.1 Chloride Level 96 L Carbon Dioxide Level 28 Anion Gap 11 # Blood Urea Nitrogen 67 #H Creatinine 4.73 #H Glucose Level 143 Calcium Level 10.5 H Test 09/13/16 06:10 09/13/16 12:14 Bedside Glucose 140 136 Medications Medications Current Medications Amlodipine Besylate (Norvasc) 5 mg DAILY GTB Last administered on 09/12/16 09: 38; Admin Dose 5 MG; Start 08/30/16 at 09:00 Clonidine (Catapres) 0.1 mg DAILY PRN GTB ELEVATED SYSTOLIC BP; Start 08/29/16 at 23:00 Doxazosin Mesylate (Cardura) 2 mg QHS GTB Last administered on 09/12/16 21:33 ; Admin Dose 2 MG; Start 08/30/16 at 21:00 Folic Acid (Folic Acid) 1 mg DAILY GTB Last administered on 09/13/16 08:25; Admin Dose 1 MG; Start 08/30/16 at 09:00 Hydralazine HCl (Apresoline) 50 mg Q8 GTB Last administered on 09/13/16 06:11 ; Admin Dose 50 MG; Start 08/30/16 at 06:00 Levetiracetam (Keppra Liquid) 500 mg BID GTB Last administered on 09/13/16 08: 25; Admin Dose 500 MG; Start 08/30/16 at 09:00 Metoprolol Tartrate (Lopressor) 25 mg BID GTB Last administered on 09/13/16 10 :36; Admin Dose 25 MG; Start 08/30/16 at 09:00 Multivit/Ca Carb/ B Cmplx/FA/Prenat (Leah-Juan Jose) 1 tab DAILY GTB Last administered on 09/13/16 08:25; Admin Dose 1 TAB; Start 08/30/16 at 09:00 Ondansetron HCl (Zofran Tab) 4 mg Q6H PRN GTB NAUSEA AND/OR VOMITING; Start at 23:00 Senna (Senokot) 1 tab DAILY GTB Last administered on 09/13/16 08:25; Admin Dose 1 TAB; Start 08/30/16 at 09:00 Zolpidem Tartrate (Ambien) 5 mg QHS PRN GTB INSOMNIA; Start 08/29/16 at 23:00 Lansoprazole (Prevacid) 30 mg DAILY@06 GTB Last administered on 09/13/16 06:11 ; Admin Dose 30 MG; Start 08/30/16 at 06:00 Acetaminophen (Tylenol Liquid) 650 mg Q4H PRN GTB PAIN AND OR ELEVATED TEMP Last administered on 09/13/16 09:35; Admin Dose 650 MG; Start 08/29/16 at 23:00 Insulin Aspart NOVOLOG *MILD* ALGORI... Q6 SC Last administered on 09/13/16 01 :04; Admin Dose 2 UNIT; Start 08/30/16 at 00:00 Cefepime HCl (Maxipime 1gm/50 ml (Pmx)) 50 ml @ 100 mls/hr Q24H IVPB Last administered on 09/13/16 08:33; Admin Dose 100 MLS/HR; Start 08/31/16 at 09:00 Miscellaneous Information 1 ea NOTE XX ; Start 08/31/16 at 07:00 Glucose (Glutose) 15 gm Q15M PRN PO DECREASED GLUCOSE; Start 08/31/16 at 07:00 Glucose (Glutose) 22.5 gm Q15M PRN PO DECREASED GLUCOSE; Start 08/31/16 at 07: 00 Dextrose (D50w Syringe) 25 ml Q15M PRN IV DECREASED GLUCOSE; Start 08/31/16 at 07:00 Dextrose (D50w Syringe) 50 ml Q15M PRN IV DECREASED GLUCOSE; Start 08/31/16 at 07:00 Glucagon (Glucagen) 1 mg Q15M PRN IM DECREASED GLUCOSE; Start 08/31/16 at 07:00 Glucose (Glutose) 15 gm Q15M PRN BUCCAL DECREASED GLUCOSE; Start 08/31/16 at 07 :00 Insulin Detemir (Levemir) 12 unit HS SC Last administered on 09/12/16 21:35; Admin Dose 12 UNIT; Start 09/03/16 at 21:00 Bacitracin/ Polymyxin B Sulfate (Ak-Poly-Anais Oph Oint) 1 applic BID BOTH EYES Last administered on 09/13/16 08:27; Admin Dose 1 APPLIC; Start 09/08/16 at 12: 00 Procedures Procedures MRI Brain 09/12/16: Bilateral frontal craniotomy changes with underlying bilateral frontal and corpus callosum encephalomalacia. GRE foci at this location corresponds to prior parenchymal hemorrhage. Beneath the right frontal craniotomy flap and along the right anterior falx is dural thickening measuring up to 2 mm. If there is high suspicion for meningitis, consider correlation with CSF studies. There is also GRE susceptibility along the bilateral occipital horns of the lateral ventricles, bilateral cortical sulci, and along the surface of the brainstem and cerebellar folia. This likely represents a sequela of prior subarachnoid and intraventricular hemorrhage with subsequent superficial siderosis. Chronic microvascular disease. No evidence of recent infarct. CXR 09/11/16: 1. Tracheostomy tube and tunneled right IJ catheter in satisfactory position. 2. Clear lungs. NOVA HACKETT NP September 13, 2016 13:35
[2016-09-13] MEDS ORDERED: VANCOMYCIN IV PER PHARMACY XX SCH (18:00)
[2016-09-13] MEDS ORDERED: VANCOMYCIN 1 GM in NS 250 ML IVPB SCH (18:30)
--- NOTE | 2016-09-13 18:31 | PN ---
Date/Time of Note Date/Time of Note DATE: 09/13/16 TIME: 18:31 Assessment/Plan VTE Prophylaxis VTE Prophylaxis Intervention: other Lines/Catheters [facility]from [facility] Urinary Cath still in place: No Assessment/Plan Assessment/Plan - Acute on chronic encephalopathy, pending MRI of the brain. - Sepsis secondary to HCAP. Continue antibiotics per ID. Dr. Benjy lang is following in infection disease consultation. - HCAP. Sputum cultures positive for Pseudomonas. - per Continue antibiotics per ID. - Chronic respiratory failure with tracheostomy, currently on T-piece. - per Dr. Freitas in pulmonology consultation - End-stage renal disease on hemodialysis. Continue hemodialysis per nephrology. - per Dr. Sales is following in nephrology consultation. - Hypertension. Continue metoprolol and hydralazine. - History of nontraumatic intracranial bleed, status post craniotomy. - Possible seizure disorder. Continue Keppra. - seizure precautions - Diabetes. Continue Levemir and NovoLog per mild algorithm sliding scale. - Anemia of chronic kidney disease. - Acute on chronic encephalopathy. - Dysphagia - sp gt placement - aspiation precautions Further recommendations based on clinical course. Plan of care discussed with Dr. Godinez. Subjective 24 Hr Interval Summary Free Text/Dictation nad, nonverbal, afebrile,dw staff- no acute events reported. Subjective hx not possible: pt non-verbal Constitutional: requiring IVF, requiring O2 Respiratory: shortness of breath Exam/Review of Systems Vital Signs Vitals Vital Signs Date Time Temp Pulse Resp B/P Pulse Ox O2 Delivery O2 Flow Rate FiO2 09/13/16 17:17 5.0 28 09/13/16 17:17 99 18 96 Aerosol T Tube 09/13/16 08:56 101.8 09/13/16 08:00 104/51 Intake and Output 09/12/16 09/12/16 09/13/16 15:00 23:00 07:00 Intake Total 350 ml 100 ml 680 ml Output Total 3300 ml Balance -2950 ml 100 ml 680 ml Exam Musculoskeletal: muscle weakness Neurological: unresponsive Results Result Diagram: 09/13/16 0510 09/13/16 0510 Results 24 hrs Laboratory Tests Test 09/12/16 21:31 09/13/16 00:59 09/13/16 05:10 09/13/16 06:10 Bedside Glucose 162 191 140 White Blood Count 8.2 Red Blood Count 3.30 L Hemoglobin 9.5 L Hematocrit 29.5 L Mean Corpuscular Volume 89.4 Mean Corpuscular Hemoglobin 28.8 L Mean Corpuscular Hemoglobin Concent 32.2 Red Cell Distribution Width 16.6 H Platelet Count 519 H Mean Platelet Volume 9.5 Neutrophils % 76.3 Lymphocytes % 13.0 L Monocytes % 7.4 Eosinophils % 1.9 Basophils % 0.7 Nucleated Red Blood Cells % 0.0 Neutrophils # 6.3 Lymphocytes # 1.1 Monocytes # 0.6 Eosinophils # 0.2 Basophils # 0.1 Nucleated Red Blood Cells # 0.0 Sodium Level 131 L Potassium Level 4.1 Chloride Level 96 L Carbon Dioxide Level 28 Anion Gap 11 # Blood Urea Nitrogen 67 #H Creatinine 4.73 #H Glucose Level 143 Calcium Level 10.5 H Test 09/13/16 12:14 09/13/16 18:05 Bedside Glucose 136 156 Medications Medications Current Medications Amlodipine Besylate (Norvasc) 5 mg DAILY GTB Last administered on 09/12/16 09: 38; Admin Dose 5 MG; Start 08/30/16 at 09:00 Clonidine (Catapres) 0.1 mg DAILY PRN GTB ELEVATED SYSTOLIC BP; Start 08/29/16 at 23:00 Doxazosin Mesylate (Cardura) 2 mg QHS GTB Last administered on 09/12/16 21:33 ; Admin Dose 2 MG; Start 08/30/16 at 21:00 Folic Acid (Folic Acid) 1 mg DAILY GTB Last administered on 09/13/16 08:25; Admin Dose 1 MG; Start 08/30/16 at 09:00 Hydralazine HCl (Apresoline) 50 mg Q8 GTB Last administered on 09/13/16 15:06 ; Admin Dose 50 MG; Start 08/30/16 at 06:00 Levetiracetam (Keppra Liquid) 500 mg BID GTB Last administered on 09/13/16 08: 25; Admin Dose 500 MG; Start 08/30/16 at 09:00 Metoprolol Tartrate (Lopressor) 25 mg BID GTB Last administered on 09/13/16 10 :36; Admin Dose 25 MG; Start 08/30/16 at 09:00 Multivit/Ca Carb/ B Cmplx/FA/Prenat (Leah-Juan Jose) 1 tab DAILY GTB Last administered on 09/13/16 08:25; Admin Dose 1 TAB; Start 08/30/16 at 09:00 Ondansetron HCl (Zofran Tab) 4 mg Q6H PRN GTB NAUSEA AND/OR VOMITING; Start at 23:00 Senna (Senokot) 1 tab DAILY GTB Last administered on 09/13/16 08:25; Admin Dose 1 TAB; Start 08/30/16 at 09:00 Zolpidem Tartrate (Ambien) 5 mg QHS PRN GTB INSOMNIA; Start 08/29/16 at 23:00 Lansoprazole (Prevacid) 30 mg DAILY@06 GTB Last administered on 09/13/16 06:11 ; Admin Dose 30 MG; Start 08/30/16 at 06:00 Acetaminophen (Tylenol Liquid) 650 mg Q4H PRN GTB PAIN AND OR ELEVATED TEMP Last administered on 09/13/16 09:35; Admin Dose 650 MG; Start 08/29/16 at 23:00 Insulin Aspart (Novolog Insulin Pen) NOVOLOG *MILD* ALGORI... Q6 SC Last administered on 09/13/16 18:13; Admin Dose 1 UNIT; Start 08/30/16 at 00:00 Miscellaneous Information 1 ea NOTE XX ; Start 08/31/16 at 07:00 Glucose (Glutose) 15 gm Q15M PRN PO DECREASED GLUCOSE; Start 08/31/16 at 07:00 Glucose (Glutose) 22.5 gm Q15M PRN PO DECREASED GLUCOSE; Start 08/31/16 at 07: 00 Dextrose (D50w Syringe) 25 ml Q15M PRN IV DECREASED GLUCOSE; Start 08/31/16 at 07:00 Dextrose (D50w Syringe) 50 ml Q15M PRN IV DECREASED GLUCOSE; Start 08/31/16 at 07:00 Glucagon (Glucagen) 1 mg Q15M PRN IM DECREASED GLUCOSE; Start 08/31/16 at 07:00 Glucose (Glutose) 15 gm Q15M PRN BUCCAL DECREASED GLUCOSE; Start 08/31/16 at 07 :00 Insulin Detemir (Levemir) 12 unit HS SC Last administered on 5/10/17at 21:35; Admin Dose 12 UNIT; Start 09/03/16 at 21:00 Bacitracin/ Polymyxin B Sulfate 1 applic 1 applic BID BOTH EYES Last administered on 09/13/16t 08:27; Admin Dose 1 APPLIC; Start 09/08/16 at 12:00 Meropenem 100 ml @ 200 mls/hr Q12 IVPB ; Start 09/13/16 at 20:00 Caspofungin 70 mg/ Sodium Chloride 250 ml @ 250 mls/hr ONCE ONCE IVPB ; Start 09/13/16 at 20:00; Stop 09/13/16 at 20:59 Caspofungin 50 mg/ Sodium Chloride 250 ml @ 250 mls/hr Q24H IVPB ; Start at 20:00 Vancomycin HCl (Vancocin) 250 ml @ 125 mls/hr ONCE IVPB ; Start 09/13/16 at 18: 30; Stop 09/13/16 at 23:56 CANDY JUAREZ September 13, 2016 18:31
[2016-09-13 19:28] VITALS: BP 140/59; RESP 18
[2016-09-13] MEDS ORDERED: CASPOFUNGIN 70 MG in SOD CHLORIDE 0.9% 250 ML IVPB ONE (20:00)
[2016-09-13] MEDS ORDERED: MEROPENEM 500 MG/100 ML (PMX) 100 ML IVPB SCH (20:00)
[2016-09-13] MEDS: DOXAZOSIN 2 MG TAB GTB SCH (20:36)
[2016-09-13] MEDS: MEROPENEM 500 MG/100 ML (PMX) 100 ML IVPB SCH (20:37)
[2016-09-13 21:48] VITALS: BP 101/50; PULSE 89
[2016-09-13] MEDS: INSULIN DETEMIR [LEVEMIR] 3ML CART SC SCH (21:53)
[2016-09-14] VITALS (10 sets, daily range): BP systolic 104–120; BP diastolic 48–78; PULSE 88–99; RESP 16
[2016-09-14] MEDS: LANSOPRAZOLE 30 MG CAP GTB SCH (06:00)
[2016-09-14] MEDS: INSULIN ASPART [NOVOLOG] 3 ML PEN SC SCH ×4 (06:14→23:53)
[2016-09-14] MEDS: LEVALBUTEROL (NEB) 0.63 MG/3 ML AMP NEB SCH ×4 (07:29→20:03)
[2016-09-14] MEDS: FOLIC ACID 1 MG TAB GTB SCH (08:30)
[2016-09-14] MEDS: LEVETIRACETAM (100 MG/ML) 5ML CUP GTB SCH ×2 (08:30→21:48)
[2016-09-14] MEDS: MULTIVIT/CA CARB/B CMPLX/FA TAB GTB SCH (08:30)
[2016-09-14] MEDS: SENNA TAB GTB SCH (08:30)
[2016-09-14] MEDS: METOPROLOL 25 MG TAB GTB SCH ×2 (08:38→21:47)
[2016-09-14] MEDS: AMLODIPINE 5 MG TAB GTB SCH (08:38)
[2016-09-14] MEDS: BACITRACIN/POLYMYX 3.5 GM OPH OINT BOTH EYES SCH ×2 (08:39→21:47)
--- NOTE | 2016-09-14 09:35 | PN ---
DATE: SUBJECTIVE: The patient is stable. No acute events overnight. No fevers, chills, nausea, or vomit ing. OBJECTIVE: VITAL SIGNS: Blood pressure 101/50, respirations 20, pulse 83, temperature 98.6. HEENT: Head is normocephalic. NECK: Supple. HEART: Regular rate. LUNGS: Showed diminished breath sounds at the base. ABDOMEN: Soft, nontender to palpation. No rebound or guarding. EXTREMITIES: Negative for clubbing, cyanosis or edema. DERMATOLOGIC: No rashes. MUSCULOSKELETAL: Have no joint effusion. NEUROLOGIC: No change in exam. MEDICATIONS: The patient's medications have been reviewed. LABORATORY DATA: Has been reviewed. No new labs. ASSESSMENT AND PLAN: 1. End-stage renal disease. Plan for dialysis today for 3 hours, 3K bath, calcium 2.5. 2. Hyponatremia secondary to end-stage renal disease. Continue to limit free water flushes, contin ue dialysis and 140 sodium bath. 3. Anemia. Continue to monitor H and H levels. Continue Epogen. 4. Mineral bone disorder. Continue to monitor calcium and phos levels. Continue dialysis on a lo w calcium bath. 5. Hypertension. Continue the current blood pressure regimen. 6. Sepsis secondary to pneumonia. Continue the current antibiotic course. Follow up with infectio us disease. 7. Chronic respiratory failure. Status post trach. 8. Dysphagia. Status post PEG. Continue tube feeding. 9. Diabetes. Continue the current insulin regimen. 10. Chronic encephalopathy. Continue to monitor. MRI is noted. 11. Seizure disorder. Continue medical management. 12. History of intracranial bleed. Dictated By: MARYURI WALLER/FRANCES Conf#: [id number] DID#: [id number]
[2016-09-14] MEDS: SEVELAMER CARBONATE 0.8 GM PKT GTB SCH ×3 (09:36→18:51)
--- NOTE | 2016-09-14 14:20 | PN ---
Date/Time of Note Date/Time of Note DATE: 09/14/16 TIME: 14:18 Assessment/Plan VTE Prophylaxis VTE Prophylaxis Intervention: SCD's Lines/Catheters IV Catheter Type (from [facility]): Saline Lock Urinary Cath still in place: No Assessment/Plan Chief Complaint/Hosp Course Assessment/Plan - Acute on chronic encephalopathy, MRI of the brain is negative for any acute stroke. - Sepsis secondary to HCAP, resolving. continue antibiotics per ID. Dr. Benjy lang is following in infection disease consultation. - HCAP. Sputum cultures positive for Pseudomonas. Continue antibiotics per ID. - Chronic respiratory failure with tracheostomy, currently on T-piece. Dr. Freitas is following in pulmonology consultation - End-stage renal disease on hemodialysis. Continue hemodialysis per nephrology. Dr. Sales is following in nephrology consultation. - Hypertension. Continue metoprolol and hydralazine. - History of nontraumatic intracranial bleed, status post craniotomy. - Possible seizure disorder. Continue Keppra. - Diabetes. Continue Levemir and NovoLog per mild algorithm sliding scale. - Anemia of chronic kidney disease. - Acute on chronic encephalopathy. [facility]wa[facility] facility [facility] Further recommendations based on clinical course. Plan of care discussed with Dr. Godinez. Problems: Subjective 24 Hr Interval Summary Free Text/Dictation Patient is lethargic but arousable open eyes in response to verbal stimuli. Remains afebrile. Exam/Review of Systems Vital Signs Vitals Vital Signs Date Time Temp Pulse Resp B/P Pulse Ox O2 Delivery O2 Flow Rate FiO2 09/14/16 12:37 100 18 97 Aerosol 5.0 28 T Tube 09/14/16 08:54 98.0 108/51 Intake and Output 09/13/16 09/13/16 09/14/16 15:00 23:00 07:00 Intake Total 50 ml 350 ml 1010 ml Balance 50 ml 350 ml 1010 ml Exam Constitutional: lethargic Psych: no complaints Head: atraumatic, normocephalic Eyes: nl conjunctiva ENMT: nl external ears & nose Neck: other (Tracheostomy), supple Respiratory: slightly diminished breath sounds, Cardiovascular: regular rate and rhythm Gastrointestinal: non-tender, other (G-tube), soft Musculoskeletal: nl extremities to inspection Extremities: normal pulses Neurological: confused Additional Comments Right chest permacath Results Result Diagram: 09/13/16 0510 09/13/16 0510 Results 24 hrs Laboratory Tests Test 09/13/16 18:05 09/13/16 18:45 09/13/16 21:50 09/13/16 23:51 Bedside Glucose 156 140 146 Lactic Acid Level 1.1 Test 09/14/16 06:09 09/14/16 12:13 Bedside Glucose 164 205 Medications Medications Current Medications Amlodipine Besylate (Norvasc) 5 mg DAILY GTB Last administered on 09/12/16 09: 38; Admin Dose 5 MG; Start 08/30/16 at 09:00 Clonidine (Catapres) 0.1 mg DAILY PRN GTB ELEVATED SYSTOLIC BP; Start 08/29/16 at 23:00 Doxazosin Mesylate (Cardura) 2 mg QHS GTB Last administered on 09/13/16 20:36 ; Admin Dose 2 MG; Start 08/30/16 at 21:00 Folic Acid (Folic Acid) 1 mg DAILY GTB Last administered on 09/14/16 08:30; Admin Dose 1 MG; Start 08/30/16 at 09:00 Hydralazine HCl (Apresoline) 50 mg Q8 GTB Last administered on 09/13/16 15:06 ; Admin Dose 50 MG; Start 08/30/16 at 06:00 Levetiracetam (Keppra Liquid) 500 mg BID GTB Last administered on 09/14/16 08: 30; Admin Dose 500 MG; Start 08/30/16 at 09:00 Metoprolol Tartrate (Lopressor) 25 mg BID GTB Last administered on 09/13/16 20 :36; Admin Dose 25 MG; Start 08/30/16 at 09:00 Multivit/Ca Carb/ B Cmplx/FA/Prenat (Leah-Juan Jose) 1 tab DAILY GTB Last administered on 09/14/16 08:30; Admin Dose 1 TAB; Start 08/30/16 at 09:00 Ondansetron HCl (Zofran Tab) 4 mg Q6H PRN GTB NAUSEA AND/OR VOMITING; Start at 23:00 Senna (Senokot) 1 tab DAILY GTB Last administered on 09/14/16 08:30; Admin Dose 1 TAB; Start 08/30/16 at 09:00 Zolpidem Tartrate (Ambien) 5 mg QHS PRN GTB INSOMNIA; Start 08/29/16 at 23:00 Lansoprazole (Prevacid) 30 mg DAILY@06 GTB Last administered on 09/13/16 06:11 ; Admin Dose 30 MG; Start 08/30/16 at 06:00 Acetaminophen (Tylenol Liquid) 650 mg Q4H PRN GTB PAIN AND OR ELEVATED TEMP Last administered on 09/13/16 09:35; Admin Dose 650 MG; Start 08/29/16 at 23:00 Insulin Aspart (Novolog Insulin Pen) NOVOLOG *MILD* ALGORI... Q6 SC Last administered on 09/14/16 12:24; Admin Dose 2 UNIT; Start 08/30/16 at 00:00 Miscellaneous Information 1 ea NOTE XX ; Start 08/31/16 at 07:00 Glucose (Glutose) 15 gm Q15M PRN PO DECREASED GLUCOSE; Start 08/31/16 at 07:00 Glucose (Glutose) 22.5 gm Q15M PRN PO DECREASED GLUCOSE; Start 08/31/16 at 07: 00 Dextrose (D50w Syringe) 25 ml Q15M PRN IV DECREASED GLUCOSE; Start 08/31/16 at 07:00 Dextrose (D50w Syringe) 50 ml Q15M PRN IV DECREASED GLUCOSE; Start 08/31/16 at 07:00 Glucagon (Glucagen) 1 mg Q15M PRN IM DECREASED GLUCOSE; Start 08/31/16 at 07:00 Glucose (Glutose) 15 gm Q15M PRN BUCCAL DECREASED GLUCOSE; Start 08/31/16 at 07 :00 Insulin Detemir (Levemir) 12 unit HS SC Last administered on 09/13/16 21:53; Admin Dose 12 UNIT; Start 09/03/16 at 21:00 Bacitracin/ Polymyxin B Sulfate 1 applic 1 applic BID BOTH EYES Last administered on 09/14/16 08:39; Admin Dose 1 APPLIC; Start 09/08/16 at 12:00 Caspofungin 50 mg/ Sodium Chloride 250 ml @ 250 mls/hr Q24H IVPB ; Start at 20:00 Meropenem (Merrem 500 Mg/ 100 ml (Pmx)) 100 ml @ 200 mls/hr Q24H IVPB Last administered on 09/13/16t 20:37; Admin Dose 200 MLS/HR; Start 09/13/16 at 20:00 Miscellaneous Information (*Rx Drug Level Order Reminder*) 1 ONCE ONCE XX ; Start 09/15/16 at 05:00; Stop 09/15/16 at 05:01 NOELLE JIMENEZ September 14, 2016 14:20
--- NOTE | 2016-09-14 20:28 | CONS ---
Date/Time of Note Date/Time of Note DATE: 09/14/16 TIME: 20:26 Assessment/Plan Assessment/Plan Chief Complaint/Hosp Course - sepsis due to HCAP - HCAP due to pseudomonas - Chronic respiratory failure with trach - G tube dependent - h/o intracranial bleed s/p craniotomy - ESRD on HD - hyponatremia - T2DM - Hgb A1c 4.8% 08/08/16 per [facility] records - HTN associated with DM - anemia of CKD - thrombocytosis - BPH - Hx prostate CA per [facility] records ([facility]) - acute on chronic encephalopathy - MRI brain 09/12/16 showed no acute infarct - fever recommendations: - we will review the results of: blood cultures x2 from 09/13/2016, repeat resp culture - growing Gram negative rods, [id number] and procalcitonin - blood cultures were collected from HD today; confirmed by Pt's RN - continue renally dosed vancomycin, meropenem and caspofungin management d/w Pt's RN Problems: Consultation Date/Type/Reason Admit Date/Time Aug 29, 2016 at 16:21 Initial Consult Date 08/30/16 Type of Consultation: Infectious Disease Referring Provider: CANDY JUAREZ 24 HR Interval Summary Subjective hx not possible: pt non-verbal Exam/Review of Systems Vital Signs Vitals Vital Signs Date Time Temp Pulse Resp B/P Pulse Ox O2 Delivery O2 Flow Rate FiO2 09/14/16 20:04 103 20 100 Aerosol 5.0 28 T Tube 09/14/16 19:47 98.6 107/55 Intake and Output 09/13/16 09/13/16 09/14/16 15:00 23:00 07:00 Intake Total 50 ml 350 ml 1010 ml Balance 50 ml 350 ml 1010 ml Exam Constitutional: non-verbal Psych: confusion Head: atraumatic, normocephalic Eyes: nl conjunctiva, nl lids, nl sclera ENMT: nl external ears & nose, nl nasal mucosa & septum Neck: other (trach) Respiratory: diminished breath sounds Cardiovascular: nl pulses, regular rate and rhythm Gastrointestinal: non-tender, other (GT), soft Genitourinary - Male: other (HD catheter on R chest) Extremities: No edema Neurological: confused Results Result Diagram: 09/13/16 0510 09/13/16 0510 Results 24 hrs Laboratory Tests Test 09/13/16 21:50 09/13/16 23:51 09/14/16 06:09 09/14/16 12:13 Bedside Glucose 140 146 164 205 Test 09/14/16 17:26 Bedside Glucose 152 Medications Medications Current Medications Amlodipine Besylate (Norvasc) 5 mg DAILY GTB Last administered on 09/12/16 09: 38; Admin Dose 5 MG; Start 08/30/16 at 09:00 Clonidine (Catapres) 0.1 mg DAILY PRN GTB ELEVATED SYSTOLIC BP; Start 08/29/16 at 23:00 Doxazosin Mesylate (Cardura) 2 mg QHS GTB Last administered on 09/13/16 20:36 ; Admin Dose 2 MG; Start 08/30/16 at 21:00 Folic Acid (Folic Acid) 1 mg DAILY GTB Last administered on 09/14/16 08:30; Admin Dose 1 MG; Start 08/30/16 at 09:00 Hydralazine HCl (Apresoline) 50 mg Q8 GTB Last administered on 09/14/16 14:38 ; Admin Dose 50 MG; Start 08/30/16 at 06:00 Levetiracetam (Keppra Liquid) 500 mg BID GTB Last administered on 09/14/16 08: 30; Admin Dose 500 MG; Start 08/30/16 at 09:00 Metoprolol Tartrate (Lopressor) 25 mg BID GTB Last administered on 09/13/16 20 :36; Admin Dose 25 MG; Start 08/30/16 at 09:00 Multivit/Ca Carb/ B Cmplx/FA/Prenat (Leah-Juan Jose) 1 tab DAILY GTB Last administered on 09/14/16 08:30; Admin Dose 1 TAB; Start 08/30/16 at 09:00 Ondansetron HCl (Zofran Tab) 4 mg Q6H PRN GTB NAUSEA AND/OR VOMITING; Start at 23:00 Senna (Senokot) 1 tab DAILY GTB Last administered on 09/14/16 08:30; Admin Dose 1 TAB; Start 08/30/16 at 09:00 Zolpidem Tartrate (Ambien) 5 mg QHS PRN GTB INSOMNIA; Start 08/29/16 at 23:00 Lansoprazole (Prevacid) 30 mg DAILY@06 GTB Last administered on 09/13/16 06:11 ; Admin Dose 30 MG; Start 08/30/16 at 06:00 Acetaminophen (Tylenol Liquid) 650 mg Q4H PRN GTB PAIN AND OR ELEVATED TEMP Last administered on 09/13/16 09:35; Admin Dose 650 MG; Start 08/29/16 at 23:00 Insulin Aspart (Novolog Insulin Pen) NOVOLOG *MILD* ALGORI... Q6 SC Last administered on 09/14/16 17:40; Admin Dose 1 UNIT; Start 08/30/16 at 00:00 Miscellaneous Information 1 ea NOTE XX ; Start 08/31/16 at 07:00 Glucose (Glutose) 15 gm Q15M PRN PO DECREASED GLUCOSE; Start 08/31/16 at 07:00 Glucose (Glutose) 22.5 gm Q15M PRN PO DECREASED GLUCOSE; Start 08/31/16 at 07: 00 Dextrose (D50w Syringe) 25 ml Q15M PRN IV DECREASED GLUCOSE; Start 08/31/16 at 07:00 Dextrose (D50w Syringe) 50 ml Q15M PRN IV DECREASED GLUCOSE; Start 08/31/16 at 07:00 Glucagon (Glucagen) 1 mg Q15M PRN IM DECREASED GLUCOSE; Start 08/31/16 at 07:00 Glucose (Glutose) 15 gm Q15M PRN BUCCAL DECREASED GLUCOSE; Start 08/31/16 at 07 :00 Insulin Detemir (Levemir) 12 unit HS SC Last administered on 09/13/16 21:53; Admin Dose 12 UNIT; Start 09/03/16 at 21:00 Bacitracin/ Polymyxin B Sulfate 1 applic 1 applic BID BOTH EYES Last administered on 09/14/16 08:39; Admin Dose 1 APPLIC; Start 09/08/16 at 12:00 Caspofungin 50 mg/ Sodium Chloride 250 ml @ 250 mls/hr Q24H IVPB ; Start at 20:00 Meropenem (Merrem 500 Mg/ 100 ml (Pmx)) 100 ml @ 200 mls/hr Q24H IVPB Last administered on 09/13/16 20:37; Admin Dose 200 MLS/HR; Start 5/11/17 at 20:00 Miscellaneous Information (*Rx Drug Level Order Reminder*) 1 ONCE ONCE XX ; Start 09/15/16 at 05:00; Stop 09/15/16 at 05:01 ESTRELLTIA ZAMBRANO M.D. September 14, 2016 20:28
[2016-09-14] MEDS: MEROPENEM 500 MG/100 ML (PMX) 100 ML IVPB SCH (21:10)
[2016-09-14] MEDS: DOXAZOSIN 2 MG TAB GTB SCH (21:47)
[2016-09-14] MEDS: CASPOFUNGIN 50 MG in SOD CHLORIDE 0.9% 250 ML IVPB SCH (21:47)
[2016-09-14] MEDS: INSULIN DETEMIR [LEVEMIR] 3ML CART SC SCH (21:55)
[2016-09-15 05:42] VITALS: BP 132/63; PULSE 92; RESP 19
[2016-09-15] MEDS: INSULIN ASPART [NOVOLOG] 3 ML PEN SC SCH ×3 (05:45→17:34)
[2016-09-15] MEDS: LANSOPRAZOLE 30 MG CAP GTB SCH (05:46)
[2016-09-15 07:05] LABS: ADD SCAN DIFF NO
[2016-09-15 07:11] LABS: BASOPHIL # 0.1 10^3/ul (0.0-0.1); BASOPHILS % 0.9 % (0.0-2.0); EOSINOPHILS # 0.3 10^3/ul (0.0-0.5); HEMATOCRIT 27.2 % (42.0-52.0); HEMOGLOBIN 8.6 g/dl (14.0-18.0); MEAN CORPUSCULAR HEMOGLOBIN 28.9 pg (29.0-33.0); MEAN CORPUSCULAR HGB CONC 31.6 g/dl (32.0-37.0); MEAN CORPUSCULAR VOLUME 91.3 fl (82.0-101.0); MEAN PLATELET VOLUME 10.3 fl (7.4-10.4); MONOCYTE # 0.6 10^3/ul (0.3-0.9); MONOCYTES % 8.8 % (0.0-11.0); NEUTROPHIL # 4.8 10^3/ul (1.6-7.5); NEUTROPHILS % 70.6 % (39.0-77.0); PLATELET COUNT 429 10^3/UL (140-415); RED BLOOD COUNT 2.98 10^6/ul (4.70-6.10); RED CELL DISTRIBUTION WIDTH 16.2 % (11.5-14.5); WHITE BLOOD COUNT 6.8 10^3/ul (4.8-10.8)
[2016-09-15 07:28] VITALS: BP 114/53; RESP 16
[2016-09-15 07:41] LABS: POTASSIUM 3.6 mmol/L (3.5-5.1)
[2016-09-15 07:43] LABS: CREATININE 4.86 mg/dl (0.61-1.24)
[2016-09-15 07:44] LABS: CALCIUM 10.4 mg/dl (8.4-10.2)
[2016-09-15] MEDS: LEVALBUTEROL (NEB) 0.63 MG/3 ML AMP NEB SCH ×4 (08:35→19:49)
[2016-09-15] MEDS: SEVELAMER CARBONATE 0.8 GM PKT GTB SCH ×3 (08:56→17:34)
[2016-09-15] MEDS: FOLIC ACID 1 MG TAB GTB SCH (08:56)
[2016-09-15] MEDS: LEVETIRACETAM (100 MG/ML) 5ML CUP GTB SCH ×2 (08:56→21:04)
[2016-09-15] MEDS: MULTIVIT/CA CARB/B CMPLX/FA TAB GTB SCH (08:57)
[2016-09-15] MEDS: SENNA TAB GTB SCH (08:57)
[2016-09-15] MEDS: AMLODIPINE 5 MG TAB GTB SCH (09:00)
[2016-09-15] MEDS: METOPROLOL 25 MG TAB GTB SCH ×2 (09:00→21:05)
[2016-09-15] MEDS: BACITRACIN/POLYMYX 3.5 GM OPH OINT BOTH EYES SCH ×2 (09:06→21:05)
--- NOTE | 2016-09-15 10:27 | PN ---
Date/Time of Note Date/Time of Note DATE: 09/15/16 TIME: 10:26 Assessment/Plan VTE Prophylaxis VTE Prophylaxis Intervention: other Lines/Catheters IV C[facility]ter Type (from [facility]): [facility] Urinary Cath still in place: No Assessment/Plan Chief Complaint/Hosp Course - Sepsis secondary to HCAP. Continue antibiotics per ID. Dr. Benjy lang is following in infection disease consultation. - HCAP. Sputum cultures positive for Pseudomonas. - Chronic respiratory failure with tracheostomy, currently on T-piece. Dr. Freitas is following in pulmonology consultation - End-stage renal disease on hemodialysis. Continue hemodialysis per nephrology. Dr. Sales is following in nephrology consultation. - Hypertension. Continue metoprolol and hydralazine. - History of nontraumatic intracranial bleed, status post craniotomy. - Possible seizure disorder. Continue Keppra. - Diabetes. Continue Levemir and NovoLog per mild algorithm sliding scale. - Anemia of chronic kidney disease. Problems: Subjective 24 Hr Interval Summary Free Text/Dictation Patient has no complaints Exam/Review of Systems Vital Signs Vitals Vital Signs Date Time Temp Pulse Resp B/P Pulse Ox O2 Delivery O2 Flow Rate FiO2 09/15/16 08:36 91 18 98 Aerosol 5.0 28 T Tube 09/15/16 07:28 98.4 114/53 Intake and Output 09/14/16 09/14/16 09/15/16 15:00 23:00 07:00 Intake Total 200 ml 100 ml 910 ml Output Total 2200 ml Balance -2000 ml 100 ml 910 ml Exam Constitutional: well developed Head: atraumatic, normocephalic Neck: supple Respiratory: clear to auscultation Cardiovascular: regular rate and rhythm Gastrointestinal: non-tender, soft Extremities: normal pulses Results Result Diagram: 09/15/16 0514 09/15/16 0514 Results 24 hrs Laboratory Tests Test 09/14/16 12:13 09/14/16 17:26 09/14/16 21:45 09/14/16 23:49 Bedside Glucose 205 152 168 168 Test 09/15/16 05:14 09/15/16 05:45 White Blood Count 6.8 Red Blood Count 2.98 L Hemoglobin 8.6 L Hematocrit 27.2 L Mean Corpuscular Volume 91.3 Mean Corpuscular Hemoglobin 28.9 L Mean Corpuscular Hemoglobin Concent 31.6 L Red Cell Distribution Width 16.2 H Platelet Count 429 H Mean Platelet Volume 10.3 Neutrophils % 70.6 Lymphocytes % 15.0 Monocytes % 8.8 Eosinophils % 4.0 Basophils % 0.9 Nucleated Red Blood Cells % 0.0 Neutrophils # 4.8 Lymphocytes # 1.0 Monocytes # 0.6 Eosinophils # 0.3 Basophils # 0.1 Nucleated Red Blood Cells # 0.0 Sodium Level 138 Potassium Level 3.6 Chloride Level 96 L Carbon Dioxide Level 27 Anion Gap 19 H Blood Urea Nitrogen 72 H Creatinine 4.86 H Glucose Level 125 Calcium Level 10.4 H Random Vancomycin Level 12.8 Bedside Glucose 139 Medications Medications Current Medications Amlodipine Besylate (Norvasc) 5 mg DAILY GTB Last administered on 09/12/16 09: 38; Admin Dose 5 MG; Start 08/30/16 at 09:00 Clonidine (Catapres) 0.1 mg DAILY PRN GTB ELEVATED SYSTOLIC BP; Start 08/29/16 at 23:00 Doxazosin Mesylate (Cardura) 2 mg QHS GTB Last administered on 09/14/16 21:47 ; Admin Dose 2 MG; Start 08/30/16 at 21:00 Folic Acid (Folic Acid) 1 mg DAILY GTB Last administered on 09/15/16 08:56; Admin Dose 1 MG; Start 08/30/16 at 09:00 Hydralazine HCl (Apresoline) 50 mg Q8 GTB Last administered on 09/15/16 05:47 ; Admin Dose 50 MG; Start 08/30/16 at 06:00 Levetiracetam (Keppra Liquid) 500 mg BID GTB Last administered on 09/15/16 08: 56; Admin Dose 500 MG; Start 08/30/16 at 09:00 Metoprolol Tartrate (Lopressor) 25 mg BID GTB Last administered on 09/14/16 21 :47; Admin Dose 25 MG; Start 08/30/16 at 09:00 Multivit/Ca Carb/ B Cmplx/FA/Prenat (Leah-Juan Jose) 1 tab DAILY GTB Last administered on 09/15/16 08:57; Admin Dose 1 TAB; Start 08/30/16 at 09:00 Ondansetron HCl (Zofran Tab) 4 mg Q6H PRN GTB NAUSEA AND/OR VOMITING; Start at 23:00 Senna (Senokot) 1 tab DAILY GTB Last administered on 09/15/16 08:57; Admin Dose 1 TAB; Start 08/30/16 at 09:00 Zolpidem Tartrate (Ambien) 5 mg QHS PRN GTB INSOMNIA; Start 08/29/16 at 23:00 Lansoprazole (Prevacid) 30 mg DAILY@06 GTB Last administered on 09/15/16 05:46 ; Admin Dose 30 MG; Start 08/30/16 at 06:00 Acetaminophen (Tylenol Liquid) 650 mg Q4H PRN GTB PAIN AND OR ELEVATED TEMP Last administered on 09/13/16 09:35; Admin Dose 650 MG; Start 08/29/16 at 23:00 Insulin Aspart (Novolog Insulin Pen) NOVOLOG *MILD* ALGORI... Q6 SC Last administered on 09/14/16 23:53; Admin Dose 1 UNIT; Start 08/30/16 at 00:00 Miscellaneous Information 1 ea NOTE XX ; Start 08/31/16 at 07:00 Glucose (Glutose) 15 gm Q15M PRN PO DECREASED GLUCOSE; Start 08/31/16 at 07:00 Glucose (Glutose) 22.5 gm Q15M PRN PO DECREASED GLUCOSE; Start 08/31/16 at 07: 00 Dextrose (D50w Syringe) 25 ml Q15M PRN IV DECREASED GLUCOSE; Start 08/31/16 at 07:00 Dextrose (D50w Syringe) 50 ml Q15M PRN IV DECREASED GLUCOSE; Start 08/31/16 at 07:00 Glucagon (Glucagen) 1 mg Q15M PRN IM DECREASED GLUCOSE; Start 08/31/16 at 07:00 Glucose (Glutose) 15 gm Q15M PRN BUCCAL DECREASED GLUCOSE; Start 08/31/16 at 07 :00 Insulin Detemir (Levemir) 12 unit HS SC Last administered on 09/14/16 21:55; Admin Dose 12 UNIT; Start 09/03/16 at 21:00 Bacitracin/ Polymyxin B Sulfate 1 applic 1 applic BID BOTH EYES Last administered on 09/15/16 09:06; Admin Dose 1 APPLIC; Start 09/08/16 at 12:00 Caspofungin 50 mg/ Sodium Chloride 250 ml @ 250 mls/hr Q24H IVPB Last administered on 09/14/16 21:47; Admin Dose 250 MLS/HR; Start 09/14/16 at 20:00 Meropenem 100 ml @ 200 mls/hr Q24H IVPB Last administered on 09/14/16 21:10; Admin Dose 200 MLS/HR; Start 09/13/16 at 20:00 Vancomycin HCl (Vancocin) 250 ml @ 125 mls/hr 18 IVPB ; Start 09/15/16 at 18:00 ; Stop 09/15/16 at 23:59 ARY ROMAN September 15, 2016 10:27
--- NOTE | 2016-09-15 11:05 | CONS ---
Date/Time of Note Date/Time of Note DATE: 09/15/16 TIME: 11:04 Consult Date/Type/Reason Admit Date/Time Aug 29, 2016 at 16:21 Initial Consult Date 08/31/16 Type of Consultation: neph Ordering Provider: CANDY JUAREZ Subjective The patient is stable. Tolerated hd yesterday. poc reviewed with dr. fortune. No acute events overnight. No fevers, chills, nausea, or vomiting. OBJECTIVE: HEENT: Head is normocephalic. NECK: Supple. HEART: Regular rate. LUNGS: Showed diminished breath sounds at the base. ABDOMEN: Soft, nontender to palpation. No rebound or guarding. EXTREMITIES: Negative for clubbing, cyanosis or edema. DERMATOLOGIC: No rashes. MUSCULOSKELETAL: Have no joint effusion. NEUROLOGIC: No change in exam. MEDICATIONS: The patient's medications have been reviewed. LABORATORY DATA: Has been reviewed. Objective Vital Signs Date Time Temp Pulse Resp B/P Pulse Ox O2 Delivery O2 Flow Rate FiO2 09/15/16 08:36 91 18 98 Aerosol 5.0 28 T Tube 09/15/16 07:28 98.4 114/53 Intake and Output 09/14/16 09/14/16 09/15/16 15:00 23:00 07:00 Intake Total 200 ml 100 ml 910 ml Output Total 2200 ml Balance -2000 ml 100 ml 910 ml Results/Medications Result Diagram: 09/15/16 0514 09/15/16 0514 Results 24 hrs Laboratory Tests Test 09/14/16 12:13 09/14/16 17:26 09/14/16 21:45 09/14/16 23:49 Bedside Glucose 205 152 168 168 Test 09/15/16 05:14 09/15/16 05:45 White Blood Count 6.8 Red Blood Count 2.98 L Hemoglobin 8.6 L Hematocrit 27.2 L Mean Corpuscular Volume 91.3 Mean Corpuscular Hemoglobin 28.9 L Mean Corpuscular Hemoglobin Concent 31.6 L Red Cell Distribution Width 16.2 H Platelet Count 429 H Mean Platelet Volume 10.3 Neutrophils % 70.6 Lymphocytes % 15.0 Monocytes % 8.8 Eosinophils % 4.0 Basophils % 0.9 Nucleated Red Blood Cells % 0.0 Neutrophils # 4.8 Lymphocytes # 1.0 Monocytes # 0.6 Eosinophils # 0.3 Basophils # 0.1 Nucleated Red Blood Cells # 0.0 Sodium Level 138 Potassium Level 3.6 Chloride Level 96 L Carbon Dioxide Level 27 Anion Gap 19 H Blood Urea Nitrogen 72 H Creatinine 4.86 H Glucose Level 125 Calcium Level 10.4 H Random Vancomycin Level 12.8 Bedside Glucose 139 Medications Current Medications Amlodipine Besylate (Norvasc) 5 mg DAILY GTB Last administered on 09/12/16 09: 38; Admin Dose 5 MG; Start 08/30/16 at 09:00 Clonidine (Catapres) 0.1 mg DAILY PRN GTB ELEVATED SYSTOLIC BP; Start 08/29/16 at 23:00 Doxazosin Mesylate (Cardura) 2 mg QHS GTB Last administered on 09/14/16 21:47 ; Admin Dose 2 MG; Start 08/30/16 at 21:00 Folic Acid (Folic Acid) 1 mg DAILY GTB Last administered on 09/15/16 08:56; Admin Dose 1 MG; Start 08/30/16 at 09:00 Hydralazine HCl (Apresoline) 50 mg Q8 GTB Last administered on 09/15/16 05:47 ; Admin Dose 50 MG; Start 08/30/16 at 06:00 Levetiracetam (Keppra Liquid) 500 mg BID GTB Last administered on 09/15/16 08: 56; Admin Dose 500 MG; Start 08/30/16 at 09:00 Metoprolol Tartrate (Lopressor) 25 mg BID GTB Last administered on 09/14/16 21 :47; Admin Dose 25 MG; Start 08/30/16 at 09:00 Multivit/Ca Carb/ B Cmplx/FA/Prenat (Leah-Juan Jose) 1 tab DAILY GTB Last administered on 09/15/16 08:57; Admin Dose 1 TAB; Start 08/30/16 at 09:00 Ondansetron HCl (Zofran Tab) 4 mg Q6H PRN GTB NAUSEA AND/OR VOMITING; Start at 23:00 Senna (Senokot) 1 tab DAILY GTB Last administered on 09/15/16 08:57; Admin Dose 1 TAB; Start 08/30/16 at 09:00 Zolpidem Tartrate (Ambien) 5 mg QHS PRN GTB INSOMNIA; Start 08/29/16 at 23:00 Lansoprazole (Prevacid) 30 mg DAILY@06 GTB Last administered on 09/15/16 05:46 ; Admin Dose 30 MG; Start 08/30/16 at 06:00 Acetaminophen (Tylenol Liquid) 650 mg Q4H PRN GTB PAIN AND OR ELEVATED TEMP Last administered on 09/13/16 09:35; Admin Dose 650 MG; Start 08/29/16 at 23:00 Insulin Aspart (Novolog Insulin Pen) NOVOLOG *MILD* ALGORI... Q6 SC Last administered on 09/14/16 23:53; Admin Dose 1 UNIT; Start 08/30/16 at 00:00 Miscellaneous Information 1 ea NOTE XX ; Start 08/31/16 at 07:00 Glucose (Glutose) 15 gm Q15M PRN PO DECREASED GLUCOSE; Start 08/31/16 at 07:00 Glucose (Glutose) 22.5 gm Q15M PRN PO DECREASED GLUCOSE; Start 08/31/16 at 07: 00 Dextrose (D50w Syringe) 25 ml Q15M PRN IV DECREASED GLUCOSE; Start 08/31/16 at 07:00 Dextrose (D50w Syringe) 50 ml Q15M PRN IV DECREASED GLUCOSE; Start 08/31/16 at 07:00 Glucagon (Glucagen) 1 mg Q15M PRN IM DECREASED GLUCOSE; Start 08/31/16 at 07:00 Glucose (Glutose) 15 gm Q15M PRN BUCCAL DECREASED GLUCOSE; Start 08/31/16 at 07 :00 Insulin Detemir (Levemir) 12 unit HS SC Last administered on 09/14/16 21:55; Admin Dose 12 UNIT; Start 09/03/16 at 21:00 Bacitracin/ Polymyxin B Sulfate 1 applic 1 applic BID BOTH EYES Last administered on 09/15/16 09:06; Admin Dose 1 APPLIC; Start 09/08/16 at 12:00 Caspofungin 50 mg/ Sodium Chloride 250 ml @ 250 mls/hr Q24H IVPB Last administered on 09/14/16 21:47; Admin Dose 250 MLS/HR; Start 09/14/16 at 20:00 Meropenem 100 ml @ 200 mls/hr Q24H IVPB Last administered on 09/14/16 21:10; Admin Dose 200 MLS/HR; Start 09/13/16 at 20:00 Vancomycin HCl (Vancocin) 250 ml @ 125 mls/hr 18 IVPB ; Start 09/15/16 at 18:00 ; Stop 09/15/16 at 23:59 Assessment/Plan Chief Complaint/Hosp Course 1. End-stage renal disease. Plan for dialysis tomorrow for 3 hours, 3K bath, calcium 2.5. assess daily for hd needs. all meds dosed ok. 2. Hyponatremia secondary to end-stage renal disease. Continue to limit free water flushes, continue dialysis and 140 sodium bath. improved. 3. Anemia. Continue to monitor H and H levels. Continue Epogen with hd. 4. Mineral bone disorder. Continue to monitor calcium and phos levels. Continue dialysis on a low calcium bath. 5. Hypertension. Continue the current blood pressure regimen. 6. Sepsis secondary to pneumonia. Continue the current antibiotic course. Follow up with infectious disease. 7. Chronic respiratory failure. Status post trach. 8. Dysphagia. Status post PEG. Continue tube feeding. 9. Diabetes. Continue the current insulin regimen. 10. Chronic encephalopathy. Continue to monitor. MRI is noted. 11. Seizure disorder. Continue medical management. 12. History of intracranial bleed. Problems: KIM PEARCE MD September 15, 2016 11:05
[2016-09-15] MEDS ORDERED: VANCOMYCIN 1 GM in NS 250 ML IVPB SCH (18:00)
--- NOTE | 2016-09-15 19:07 | CONS ---
NOVA HACKETT SCHEDULING ASSISTANT 09/15/16 1907: Date/Time of Note Date/Time of Note DATE: 09/15/16 TIME: 19:06 Assessment/Plan Assessment/Plan Chief Complaint/Hosp Course - sepsis due to HCAP - HCAP due to pseudomonas per resp cx on 08/29/16 & 09/13/16 (now intermediate sensitivity to Cefepime) - Chronic respiratory failure with trach - G tube dependent - h/o intracranial bleed s/p craniotomy - ESRD on HD - hyponatremia - T2DM - Hgb A1c 4.8% 08/08/16 per [facility] records - HTN associated with DM - anemia of CKD - thrombocytosis - BPH - Hx prostate CA per [facility] records ([facility]) - acute on chronic encephalopathy - MRI brain 09/12/16 showed no acute infarct; improving - fever due to persistent pseudomonas -improving recommendations: - F/u 1,4-ualh-V-glucan, procalcitonin and blood cx from HD catheter (negative to date) - De-escalate abx: DC vanco - Continue renally dosed meropenem and caspofungin (09/13/2016-); s/p Cefepime (-09/13/16) Management d/w Pt's RN and Dr. Pa Problems: Consultation Date/Type/Reason Admit Date/Time Aug 29, 2016 at 16:21 Initial Consult Date 08/31/16 Type of Consultation: Infectious Disease Referring Provider: CANDY JUAREZ 24 HR Interval Summary Free Text/Dictation More alert, watching TV, afebrile. No new issues per d/w nursing staff. ROS limited d/t pt being non-verbal. Exam/Review of Systems Vital Signs Vitals Vital Signs Date Time Temp Pulse Resp B/P Pulse Ox O2 Delivery O2 Flow Rate FiO2 09/15/16 16:45 83 16 100 Aerosol 5.0 28 T Tube 09/15/16 07:28 98.4 114/53 Intake and Output 09/14/16 09/14/16 09/15/16 15:00 23:00 07:00 Intake Total 200 ml 100 ml 910 ml Output Total 2200 ml Balance -2000 ml 100 ml 910 ml Exam Constitutional: alert, non-verbal, well developed Head: atraumatic, normocephalic Eyes: nl sclera Neck: other (trach in place) Respiratory: diminished breath sounds, other (Right chest wall HD catheter intact) Cardiovascular: regular rate and rhythm Gastrointestinal: bowel sounds (present), other (GT intact with tube feeds), soft Extremities: edema (LUE d/t infiltrated IV site - RN notified), other (atrophy noted; RUE AVF +bruit/thrill), tenderness (LUE d/t infiltrated IV site - RN notified) Neurological: confused, other (Selectively tracking. No commands) Skin: nl turgor, other (wounds- see nurse note and photos in chart for details) Results Result Diagram: 09/15/1651309/15/1614 Results 24 hrs Laboratory Tests Test 09/14/16 21:45 09/14/16 23:49 09/15/16 05:14 09/15/16 05:45 Bedside Glucose 168 168 139 White Blood Count 6.8 Red Blood Count 2.98 L Hemoglobin 8.6 L Hematocrit 27.2 L Mean Corpuscular Volume 91.3 Mean Corpuscular Hemoglobin 28.9 L Mean Corpuscular Hemoglobin Concent 31.6 L Red Cell Distribution Width 16.2 H Platelet Count 429 H Mean Platelet Volume 10.3 Neutrophils % 70.6 Lymphocytes % 15.0 Monocytes % 8.8 Eosinophils % 4.0 Basophils % 0.9 Nucleated Red Blood Cells % 0.0 Neutrophils # 4.8 Lymphocytes # 1.0 Monocytes # 0.6 Eosinophils # 0.3 Basophils # 0.1 Nucleated Red Blood Cells # 0.0 Sodium Level 138 Potassium Level 3.6 Chloride Level 96 L Carbon Dioxide Level 27 Anion Gap 19 H Blood Urea Nitrogen 72 H Creatinine 4.86 H Glucose Level 125 Calcium Level 10.4 H Random Vancomycin Level 12.8 Test 09/15/16 11:59 09/15/16 17:33 Bedside Glucose 136 132 Medications Medications Current Medications Amlodipine Besylate (Norvasc) 5 mg DAILY GTB Last administered on 09/12/16 09: 38; Admin Dose 5 MG; Start 08/30/16 at 09:00 Clonidine (Catapres) 0.1 mg DAILY PRN GTB ELEVATED SYSTOLIC BP; Start 08/29/16 at 23:00 Doxazosin Mesylate (Cardura) 2 mg QHS GTB Last administered on 09/14/16 21:47 ; Admin Dose 2 MG; Start 08/30/16 at 21:00 Folic Acid (Folic Acid) 1 mg DAILY GTB Last administered on 09/15/16 08:56; Admin Dose 1 MG; Start 08/30/16 at 09:00 Hydralazine HCl (Apresoline) 50 mg Q8 GTB Last administered on 09/15/16 13:02 ; Admin Dose 50 MG; Start 08/30/16 at 06:00 Levetiracetam (Keppra Liquid) 500 mg BID GTB Last administered on 09/15/16 08: 56; Admin Dose 500 MG; Start 08/30/16 at 09:00 Metoprolol Tartrate (Lopressor) 25 mg BID GTB Last administered on 09/14/16 21 :47; Admin Dose 25 MG; Start 08/30/16 at 09:00 Multivit/Ca Carb/ B Cmplx/FA/Prenat (Leah-Juan Jose) 1 tab DAILY GTB Last administered on 09/15/16 08:57; Admin Dose 1 TAB; Start 08/30/16 at 09:00 Ondansetron HCl (Zofran Tab) 4 mg Q6H PRN GTB NAUSEA AND/OR VOMITING; Start at 23:00 Senna (Senokot) 1 tab DAILY GTB Last administered on 09/15/16 08:57; Admin Dose 1 TAB; Start 08/30/16 at 09:00 Zolpidem Tartrate (Ambien) 5 mg QHS PRN GTB INSOMNIA; Start 08/29/16 at 23:00 Lansoprazole (Prevacid) 30 mg DAILY@06 GTB Last administered on 09/15/16 05:46 ; Admin Dose 30 MG; Start 08/30/16 at 06:00 Acetaminophen (Tylenol Liquid) 650 mg Q4H PRN GTB PAIN AND OR ELEVATED TEMP Last administered on 09/13/16 09:35; Admin Dose 650 MG; Start 08/29/16 at 23:00 Insulin Aspart (Novolog Insulin Pen) NOVOLOG *MILD* ALGORI... Q6 SC Last administered on 09/14/16 23:53; Admin Dose 1 UNIT; Start 08/30/16 at 00:00 Miscellaneous Information 1 ea NOTE XX ; Start 08/31/16 at 07:00 Glucose (Glutose) 15 gm Q15M PRN PO DECREASED GLUCOSE; Start 08/31/16 at 07:00 Glucose (Glutose) 22.5 gm Q15M PRN PO DECREASED GLUCOSE; Start 08/31/16 at 07: 00 Dextrose (D50w Syringe) 25 ml Q15M PRN IV DECREASED GLUCOSE; Start 08/31/16 at 07:00 Dextrose (D50w Syringe) 50 ml Q15M PRN IV DECREASED GLUCOSE; Start 08/31/16 at 07:00 Glucagon (Glucagen) 1 mg Q15M PRN IM DECREASED GLUCOSE; Start 08/31/16 at 07:00 Glucose (Glutose) 15 gm Q15M PRN BUCCAL DECREASED GLUCOSE; Start 08/31/16 at 07 :00 Insulin Detemir (Levemir) 12 unit HS SC Last administered on 09/14/16 21:55; Admin Dose 12 UNIT; Start 09/03/16 at 21:00 Bacitracin/ Polymyxin B Sulfate 1 applic 1 applic BID BOTH EYES Last administered on 09/15/16 09:06; Admin Dose 1 APPLIC; Start 09/08/16 at 12:00 Caspofungin 50 mg/ Sodium Chloride 250 ml @ 250 mls/hr Q24H IVPB Last administered on 09/14/16 21:47; Admin Dose 250 MLS/HR; Start 09/14/16 at 20:00 Meropenem 100 ml @ 200 mls/hr Q24H IVPB Last administered on 09/14/16 21:10; Admin Dose 200 MLS/HR; Start 09/13/16 at 20:00 Vancomycin HCl (Vancocin) 250 ml @ 125 mls/hr 18 IVPB Last administered on 17:34; Admin Dose 125 MLS/HR; Start 09/15/16 at 18:00; Stop 09/15/16 at 23:59 ESTRELLITA PA M.D. 09/16/16 1244: Assessment/Plan Assessment/Plan Additional Assessment/Plan Ember attestation: I discussed the management with EVELIN Hackett and agree with above Exam/Review of Systems Results Result Diagram: 09/15/16 0514 09/15/16 0514 NOVA HACKETT NP September 15, 2016 19:07 ESTRELLITA PA M.D. September 16, 2016 12:44
[2016-09-15 19:20] VITALS: BP 116/56; RESP 16
[2016-09-15] MEDS: MEROPENEM 500 MG/100 ML (PMX) 100 ML IVPB SCH (20:49)
[2016-09-15] MEDS: DOXAZOSIN 2 MG TAB GTB SCH (21:04)
[2016-09-15] MEDS: INSULIN DETEMIR [LEVEMIR] 3ML CART SC SCH (21:08)
[2016-09-15] MEDS: CASPOFUNGIN 50 MG in SOD CHLORIDE 0.9% 250 ML IVPB SCH (21:53)
[2016-09-16] MEDS: INSULIN ASPART [NOVOLOG] 3 ML PEN SC SCH ×4 (06:00→18:00)
[2016-09-16] MEDS: LANSOPRAZOLE 30 MG CAP GTB SCH (06:27)
[2016-09-16 07:24] VITALS: BP 111/56; RESP 16
[2016-09-16] MEDS: SEVELAMER CARBONATE 0.8 GM PKT GTB SCH ×3 (08:20→18:08)
[2016-09-16] MEDS: SENNA TAB GTB SCH (08:20)
[2016-09-16] MEDS: LEVETIRACETAM (100 MG/ML) 5ML CUP GTB SCH ×2 (08:20→21:06)
[2016-09-16] MEDS: MULTIVIT/CA CARB/B CMPLX/FA TAB GTB SCH (08:20)
[2016-09-16] MEDS: BACITRACIN/POLYMYX 3.5 GM OPH OINT BOTH EYES SCH ×2 (08:20→21:07)
[2016-09-16] MEDS: FOLIC ACID 1 MG TAB GTB SCH (08:20)
[2016-09-16] MEDS: METOPROLOL 25 MG TAB GTB SCH ×2 (08:21→21:07)
[2016-09-16] MEDS: AMLODIPINE 5 MG TAB GTB SCH (08:32)
[2016-09-16] MEDS: LEVALBUTEROL (NEB) 0.63 MG/3 ML AMP NEB SCH ×4 (08:40→19:14)
--- NOTE | 2016-09-16 09:55 | CONS ---
Date/Time of Note Date/Time of Note DATE: 09/16/16 TIME: 09:54 Consult Date/Type/Reason Admit Date/Time Aug 29, 2016 at 16:21 Initial Consult Date 08/31/16 Type of Consultation: neph Ordering Provider: CANDY JUAREZ The patient is stable. on hd today. poc reviewed with dr. fortune. No acute events overnight. No fevers, chills, nausea, or vomiting. OBJECTIVE: HEENT: Head is normocephalic. NECK: Supple. HEART: Regular rate. LUNGS: Showed diminished breath sounds at the base. ABDOMEN: Soft, nontender to palpation. No rebound or guarding. EXTREMITIES: Negative for clubbing, cyanosis or edema. DERMATOLOGIC: No rashes. MUSCULOSKELETAL: Have no joint effusion. NEUROLOGIC: No change in exam. MEDICATIONS: The patient's medications have been reviewed. LABORATORY DATA: Has been reviewed. Objective Vital Signs Date Time Temp Pulse Resp B/P Pulse Ox O2 Delivery O2 Flow Rate FiO2 09/16/16 08:40 100 5.0 28 09/16/16 08:40 78 18 Aerosol T Tube 09/16/16 07:24 97.4 111/56 Intake and Output 09/15/16 09/15/16 09/16/16 15:00 23:00 07:00 Intake Total 1330 ml 1030 ml Balance 1330 ml 1030 ml Results/Medications Result Diagram: 09/15/16 0514 09/15/16 0514 Results 24 hrs Laboratory Tests Test 09/15/16 11:59 09/15/16 17:33 09/15/16 20:59 09/16/16 00:11 Bedside Glucose 136 132 133 137 Test 09/16/16 06:25 Bedside Glucose 107 Medications Current Medications Amlodipine Besylate (Norvasc) 5 mg DAILY GTB Last administered on 09/12/16 09: 38; Admin Dose 5 MG; Start 08/30/16 at 09:00 Clonidine (Catapres) 0.1 mg DAILY PRN GTB ELEVATED SYSTOLIC BP; Start 08/29/16 at 23:00 Doxazosin Mesylate (Cardura) 2 mg QHS GTB Last administered on 09/15/16 21:04 ; Admin Dose 2 MG; Start 08/30/16 at 21:00 Folic Acid (Folic Acid) 1 mg DAILY GTB Last administered on 09/16/16 08:20; Admin Dose 1 MG; Start 08/30/16 at 09:00 Hydralazine HCl (Apresoline) 50 mg Q8 GTB Last administered on 09/16/16 06:27 ; Admin Dose 50 MG; Start 08/30/16 at 06:00 Levetiracetam (Keppra Liquid) 500 mg BID GTB Last administered on 09/16/16 08: 20; Admin Dose 500 MG; Start 08/30/16 at 09:00 Metoprolol Tartrate (Lopressor) 25 mg BID GTB Last administered on 09/16/16 08 :21; Admin Dose 25 MG; Start 08/30/16 at 09:00 Multivit/Ca Carb/ B Cmplx/FA/Prenat (Leah-Juan Jose) 1 tab DAILY GTB Last administered on 09/16/16 08:20; Admin Dose 1 TAB; Start 08/30/16 at 09:00 Ondansetron HCl (Zofran Tab) 4 mg Q6H PRN GTB NAUSEA AND/OR VOMITING; Start at 23:00 Senna (Senokot) 1 tab DAILY GTB Last administered on 09/16/16 08:20; Admin Dose 1 TAB; Start 08/30/16 at 09:00 Zolpidem Tartrate (Ambien) 5 mg QHS PRN GTB INSOMNIA; Start 08/29/16 at 23:00 Lansoprazole (Prevacid) 30 mg DAILY@06 GTB Last administered on 09/16/16 06:27 ; Admin Dose 30 MG; Start 08/30/16 at 06:00 Acetaminophen (Tylenol Liquid) 650 mg Q4H PRN GTB PAIN AND OR ELEVATED TEMP Last administered on 09/13/16 09:35; Admin Dose 650 MG; Start 08/29/16 at 23:00 Insulin Aspart (Novolog Insulin Pen) NOVOLOG *MILD* ALGORI... Q6 SC Last administered on 09/14/16 23:53; Admin Dose 1 UNIT; Start 08/30/16 at 00:00 Miscellaneous Information 1 ea NOTE XX ; Start 08/31/16 at 07:00 Glucose (Glutose) 15 gm Q15M PRN PO DECREASED GLUCOSE; Start 08/31/16 at 07:00 Glucose (Glutose) 22.5 gm Q15M PRN PO DECREASED GLUCOSE; Start 08/31/16 at 07: 00 Dextrose (D50w Syringe) 25 ml Q15M PRN IV DECREASED GLUCOSE; Start 08/31/16 at 07:00 Dextrose (D50w Syringe) 50 ml Q15M PRN IV DECREASED GLUCOSE; Start 08/31/16 at 07:00 Glucagon (Glucagen) 1 mg Q15M PRN IM DECREASED GLUCOSE; Start 08/31/16 at 07:00 Glucose (Glutose) 15 gm Q15M PRN BUCCAL DECREASED GLUCOSE; Start 08/31/16 at 07 :00 Insulin Detemir (Levemir) 12 unit HS SC Last administered on 09/15/16 21:08; Admin Dose 12 UNIT; Start 09/03/16 at 21:00 Bacitracin/ Polymyxin B Sulfate 1 applic 1 applic BID BOTH EYES Last administered on 09/16/16 08:20; Admin Dose 1 APPLIC; Start 09/08/16 at 12:00 Caspofungin 50 mg/ Sodium Chloride 250 ml @ 250 mls/hr Q24H IVPB Last administered on 09/15/16 21:53; Admin Dose 250 MLS/HR; Start 09/14/16 at 20:00 Meropenem (Merrem 500 Mg/ 100 ml (Pmx)) 100 ml @ 200 mls/hr Q24H IVPB Last administered on 09/15/16 20:49; Admin Dose 200 MLS/HR; Start 09/13/16 at 20:00 Assessment/Plan Chief Complaint/Hosp Course 1. End-stage renal disease. Plan for dialysis on qod schedule. assess daily for hd needs. all meds dosed ok. 2. Hyponatremia secondary to end-stage renal disease. Continue to limit free water flushes, continue dialysis and 140 sodium bath. improved. 3. Anemia. Continue to monitor H and H levels. Continue Epogen with hd. 4. Mineral bone disorder. Continue to monitor calcium and phos levels. Continue dialysis on a low calcium bath. 5. Hypertension. Continue the current blood pressure regimen. 6. Sepsis secondary to pneumonia. Continue the current antibiotic course. Follow up with infectious disease. 7. Chronic respiratory failure. Status post trach. 8. Dysphagia. Status post PEG. Continue tube feeding. 9. Diabetes. Continue the current insulin regimen. 10. Chronic encephalopathy. Continue to monitor. MRI is noted. 11. Seizure disorder. Continue medical management. 12. History of intracranial bleed. Problems: KIM PEARCE MD September 16, 2016 09:55
--- NOTE | 2016-09-16 11:06 | PN ---
Date/Time of Note Date/Time of Note DATE: 09/16/16 TIME: 11:06 Assessment/Plan VTE Prophylaxis VTE Prophylaxis Intervention: other Lines/Catheters IV Catheter Type (from [facility]): Perma Cath Urinary Cath still in place: No Assessment/Plan Chief Complaint/Hosp Course - Sepsis secondary to HCAP. Continue antibiotics per ID. Dr. Benjy lang is following in infection disease consultation. - HCAP. Sputum cultures positive for Pseudomonas. - Chronic respiratory failure with tracheostomy, currently on T-piece. Dr. Freitas is following in pulmonology consultation - End-stage renal disease on hemodialysis. Continue hemodialysis per nephrology. Dr. Sales is following in nephrology consultation. - Hypertension. Continue metoprolol and hydralazine. - History of nontraumatic intracranial bleed, status post craniotomy. - Possible seizure disorder. Continue Keppra. - Diabetes. Continue Levemir and NovoLog per mild algorithm sliding scale. - Anemia of chronic kidney disease. Problems: Subjective 24 Hr Interval Summary Free Text/Dictation Patient awake, has trach in place Exam/Review of Systems Vital Signs Vitals Vital Signs Date Time Temp Pulse Resp B/P Pulse Ox O2 Delivery O2 Flow Rate FiO2 09/16/16 08:40 100 5.0 28 09/16/16 08:40 78 18 Aerosol T Tube 09/16/16 07:24 97.4 111/56 Intake and Output 09/15/16 09/15/16 09/16/16 15:00 23:00 07:00 Intake Total 1330 ml 1030 ml Balance 1330 ml 1030 ml Exam Constitutional: well developed Head: atraumatic, normocephalic Neck: supple Respiratory: clear to auscultation Cardiovascular: regular rate and rhythm Gastrointestinal: non-tender, soft Extremities: normal pulses Results Result Diagram: 09/15/16 0514 09/15/16 0514 Results 24 hrs Laboratory Tests Test 09/15/16 11:59 09/15/16 17:33 09/15/16 20:59 09/16/16 00:11 Bedside Glucose 136 132 133 137 Test 09/16/16 06:25 Bedside Glucose 107 Medications Medications Current Medications Amlodipine Besylate (Norvasc) 5 mg DAILY GTB Last administered on 09/12/16t 09: 38; Admin Dose 5 MG; Start 08/30/16 at 09:00 Clonidine (Catapres) 0.1 mg DAILY PRN GTB ELEVATED SYSTOLIC BP; Start 08/29/16 at 23:00 Doxazosin Mesylate (Cardura) 2 mg QHS GTB Last administered on 09/15/16 21:04 ; Admin Dose 2 MG; Start 08/30/16 at 21:00 Folic Acid (Folic Acid) 1 mg DAILY GTB Last administered on 09/16/16 08:20; Admin Dose 1 MG; Start 08/30/16 at 09:00 Hydralazine HCl (Apresoline) 50 mg Q8 GTB Last administered on 09/16/16 06:27 ; Admin Dose 50 MG; Start 08/30/16 at 06:00 Levetiracetam (Keppra Liquid) 500 mg BID GTB Last administered on 09/16/16 08: 20; Admin Dose 500 MG; Start 08/30/16 at 09:00 Metoprolol Tartrate (Lopressor) 25 mg BID GTB Last administered on 09/16/16 08 :21; Admin Dose 25 MG; Start 08/30/16 at 09:00 Multivit/Ca Carb/ B Cmplx/FA/Prenat (Leah-Juan Jose) 1 tab DAILY GTB Last administered on 09/16/16 08:20; Admin Dose 1 TAB; Start 08/30/16 at 09:00 Ondansetron HCl (Zofran Tab) 4 mg Q6H PRN GTB NAUSEA AND/OR VOMITING; Start at 23:00 Senna (Senokot) 1 tab DAILY GTB Last administered on 09/16/16 08:20; Admin Dose 1 TAB; Start 08/30/16 at 09:00 Zolpidem Tartrate (Ambien) 5 mg QHS PRN GTB INSOMNIA; Start 08/29/16 at 23:00 Lansoprazole (Prevacid) 30 mg DAILY@06 GTB Last administered on 09/16/16 06:27 ; Admin Dose 30 MG; Start 08/30/16 at 06:00 Acetaminophen (Tylenol Liquid) 650 mg Q4H PRN GTB PAIN AND OR ELEVATED TEMP Last administered on 09/13/16 09:35; Admin Dose 650 MG; Start 08/29/16 at 23:00 Insulin Aspart (Novolog Insulin Pen) NOVOLOG *MILD* ALGORI... Q6 SC Last administered on 09/14/16 23:53; Admin Dose 1 UNIT; Start 08/30/16 at 00:00 Miscellaneous Information 1 ea NOTE XX ; Start 08/31/16 at 07:00 Glucose (Glutose) 15 gm Q15M PRN PO DECREASED GLUCOSE; Start 08/31/16 at 07:00 Glucose (Glutose) 22.5 gm Q15M PRN PO DECREASED GLUCOSE; Start 08/31/16 at 07: 00 Dextrose (D50w Syringe) 25 ml Q15M PRN IV DECREASED GLUCOSE; Start 08/31/16 at 07:00 Dextrose (D50w Syringe) 50 ml Q15M PRN IV DECREASED GLUCOSE; Start 08/31/16 at 07:00 Glucagon (Glucagen) 1 mg Q15M PRN IM DECREASED GLUCOSE; Start 08/31/16 at 07:00 Glucose (Glutose) 15 gm Q15M PRN BUCCAL DECREASED GLUCOSE; Start 08/31/16 at 07 :00 Insulin Detemir (Levemir) 12 unit HS SC Last administered on 09/15/16 21:08; Admin Dose 12 UNIT; Start 09/03/16 at 21:00 Bacitracin/ Polymyxin B Sulfate 1 applic 1 applic BID BOTH EYES Last administered on 09/16/16 08:20; Admin Dose 1 APPLIC; Start 09/08/16 at 12:00 Caspofungin 50 mg/ Sodium Chloride 250 ml @ 250 mls/hr Q24H IVPB Last administered on 09/15/16 21:53; Admin Dose 250 MLS/HR; Start 09/14/16 at 20:00 Meropenem (Merrem 500 Mg/ 100 ml (Pmx)) 100 ml @ 200 mls/hr Q24H IVPB Last administered on 09/15/16 20:49; Admin Dose 200 MLS/HR; Start 09/13/16 at 20:00 ARY ROMAN September 16, 2016 11:06
--- NOTE | 2016-09-16 12:46 | CONS ---
Date/Time of Note Date/Time of Note DATE: 09/16/16 TIME: 12:44 Assessment/Plan Assessment/Plan Chief Complaint/Hosp Course - sepsis due to HCAP - HCAP due to pseudomonas per resp cx on 08/29/16 & 09/13/16 (now intermediate sensitivity to Cefepime) - Chronic respiratory failure with trach - G tube dependent - h/o intracranial bleed s/p craniotomy - ESRD on HD - hyponatremia - T2DM - Hgb A1c 4.8% 08/08/16 per [facility] records - HTN associated with DM - anemia of CKD - thrombocytosis - BPH - Hx prostate CA per [facility] records ([facility]) - acute on chronic encephalopathy - MRI brain 09/12/16 showed no acute infarct; improving - fever due to persistent pseudomonas -improving recommendations: - F/u 1,8-bfiz-I-glucan, blood cx from HD catheter (negative to date) - De-escalate antibiotics: d/c caspofungin - Continue renally dosed meropenem (09/13/2016-) Problems: Consultation Date/Type/Reason Admit Date/Time Aug 29, 2016 at 16:21 Initial Consult Date 08/30/16 Type of Consultation: ID Referring Provider: CANDY JUAREZ 24 HR Interval Summary Subjective hx not possible: pt non-verbal Exam/Review of Systems Vital Signs Vitals Vital Signs Date Time Temp Pulse Resp B/P Pulse Ox O2 Delivery O2 Flow Rate FiO2 09/16/16 08:40 100 5.0 28 09/16/16 08:40 78 18 Aerosol T Tube 09/16/16 07:24 97.4 111/56 Intake and Output 09/15/16 09/15/16 09/16/16 15:00 23:00 07:00 Intake Total 1330 ml 1030 ml Balance 1330 ml 1030 ml Exam Constitutional: frail, non-verbal Psych: confusion Head: atraumatic, normocephalic Eyes: nl conjunctiva, nl lids ENMT: nl external ears & nose, nl nasal mucosa & septum Respiratory: crackles/rales Cardiovascular: nl pulses, regular rate and rhythm Gastrointestinal: non-tender, other (GT), soft Extremities: No edema Neurological: confused, lethargic Skin: nl turgor, No rash or lesions Results Result Diagram: 09/15/1651309/15/16513 Results 24 hrs Laboratory Tests Test 09/15/16 17:33 09/15/16 20:59 09/16/16 00:11 09/16/16 06:25 Bedside Glucose 132 133 137 107 Test 09/16/16 12:10 Bedside Glucose 116 Medications Medications Current Medications Amlodipine Besylate (Norvasc) 5 mg DAILY GTB Last administered on 09/12/16 09: 38; Admin Dose 5 MG; Start 08/30/16 at 09:00 Clonidine (Catapres) 0.1 mg DAILY PRN GTB ELEVATED SYSTOLIC BP; Start 08/29/16 at 23:00 Doxazosin Mesylate (Cardura) 2 mg QHS GTB Last administered on 09/15/16 21:04 ; Admin Dose 2 MG; Start 08/30/16 at 21:00 Folic Acid (Folic Acid) 1 mg DAILY GTB Last administered on 09/16/16 08:20; Admin Dose 1 MG; Start 08/30/16 at 09:00 Hydralazine HCl (Apresoline) 50 mg Q8 GTB Last administered on 09/16/16 06:27 ; Admin Dose 50 MG; Start 08/30/16 at 06:00 Levetiracetam (Keppra Liquid) 500 mg BID GTB Last administered on 09/16/16 08: 20; Admin Dose 500 MG; Start 08/30/16 at 09:00 Metoprolol Tartrate (Lopressor) 25 mg BID GTB Last administered on 09/16/16 08 :21; Admin Dose 25 MG; Start 08/30/16 at 09:00 Multivit/Ca Carb/ B Cmplx/FA/Prenat (Leah-Juan Jose) 1 tab DAILY GTB Last administered on 09/16/16 08:20; Admin Dose 1 TAB; Start 08/30/16 at 09:00 Ondansetron HCl (Zofran Tab) 4 mg Q6H PRN GTB NAUSEA AND/OR VOMITING; Start at 23:00 Senna (Senokot) 1 tab DAILY GTB Last administered on 09/16/16 08:20; Admin Dose 1 TAB; Start 08/30/16 at 09:00 Zolpidem Tartrate (Ambien) 5 mg QHS PRN GTB INSOMNIA; Start 08/29/16 at 23:00 Lansoprazole (Prevacid) 30 mg DAILY@06 GTB Last administered on 09/16/16 06:27 ; Admin Dose 30 MG; Start 08/30/16 at 06:00 Acetaminophen (Tylenol Liquid) 650 mg Q4H PRN GTB PAIN AND OR ELEVATED TEMP Last administered on 09/13/16 09:35; Admin Dose 650 MG; Start 08/29/16 at 23:00 Insulin Aspart (Novolog Insulin Pen) NOVOLOG *MILD* ALGORI... Q6 SC Last administered on 09/14/16 23:53; Admin Dose 1 UNIT; Start 08/30/16 at 00:00 Miscellaneous Information 1 ea NOTE XX ; Start 08/31/16 at 07:00 Glucose (Glutose) 15 gm Q15M PRN PO DECREASED GLUCOSE; Start 08/31/16 at 07:00 Glucose (Glutose) 22.5 gm Q15M PRN PO DECREASED GLUCOSE; Start 08/31/16 at 07: 00 Dextrose (D50w Syringe) 25 ml Q15M PRN IV DECREASED GLUCOSE; Start 08/31/16 at 07:00 Dextrose (D50w Syringe) 50 ml Q15M PRN IV DECREASED GLUCOSE; Start 08/31/16 at 07:00 Glucagon (Glucagen) 1 mg Q15M PRN IM DECREASED GLUCOSE; Start 08/31/16 at 07:00 Glucose (Glutose) 15 gm Q15M PRN BUCCAL DECREASED GLUCOSE; Start 08/31/16 at 07 :00 Insulin Detemir (Levemir) 12 unit HS SC Last administered on 09/15/16 21:08; Admin Dose 12 UNIT; Start 09/03/16 at 21:00 Bacitracin/ Polymyxin B Sulfate 1 applic 1 applic BID BOTH EYES Last administered on 09/16/16 08:20; Admin Dose 1 APPLIC; Start 09/08/16 at 12:00 Caspofungin 50 mg/ Sodium Chloride 250 ml @ 250 mls/hr Q24H IVPB Last administered on 09/15/16 21:53; Admin Dose 250 MLS/HR; Start 09/14/16 at 20:00 Meropenem (Merrem 500 Mg/ 100 ml (Pmx)) 100 ml @ 200 mls/hr Q24H IVPB Last administered on 5/13/17at 20:49; Admin Dose 200 MLS/HR; Start 09/13/16 at 20:00 ESTRELLITA ZAMBRANO M.D. September 16, 2016 12:46
[2016-09-16] MEDS: MEROPENEM 500 MG/100 ML (PMX) 100 ML IVPB SCH (20:51)
[2016-09-16 21:05] VITALS: BP 138/63; RESP 18
[2016-09-16] MEDS: DOXAZOSIN 2 MG TAB GTB SCH (21:07)
[2016-09-16] MEDS: INSULIN DETEMIR [LEVEMIR] 3ML CART SC SCH (21:09)
[2016-09-17] VITALS (9 sets, daily range): BP systolic 105–132; BP diastolic 45–74; PULSE 84–88; RESP 16–20
[2016-09-17] MEDS: LANSOPRAZOLE 30 MG CAP GTB SCH (05:19)
[2016-09-17] MEDS: INSULIN ASPART [NOVOLOG] 3 ML PEN SC SCH ×5 (06:00→23:43)
[2016-09-17 06:10] LABS: ADD SCAN DIFF NO
[2016-09-17 06:19] LABS: BASOPHILS % 0.5 % (0.0-2.0); EOSINOPHILS # 0.3 10^3/ul (0.0-0.5); EOSINOPHILS % 5.4 % (0.0-7.0); HEMATOCRIT 24.6 % (42.0-52.0); HEMOGLOBIN 7.9 g/dl (14.0-18.0); LYMPHOCYTES # 0.7 10^3/ul (0.8-2.9); LYMPHOCYTES % 11.2 % (15.0-51.0); MEAN CORPUSCULAR HEMOGLOBIN 28.5 pg (29.0-33.0); MEAN CORPUSCULAR HGB CONC 32.1 g/dl (32.0-37.0); MEAN CORPUSCULAR VOLUME 88.8 fl (82.0-101.0); MEAN PLATELET VOLUME 9.9 fl (7.4-10.4); MONOCYTE # 0.4 10^3/ul (0.3-0.9); MONOCYTES % 7.3 % (0.0-11.0); NEUTROPHIL # 4.4 10^3/ul (1.6-7.5); NEUTROPHILS % 75.1 % (39.0-77.0); PLATELET COUNT 381 10^3/UL (140-415); RED BLOOD COUNT 2.77 10^6/ul (4.70-6.10); RED CELL DISTRIBUTION WIDTH 15.7 % (11.5-14.5); WHITE BLOOD COUNT 5.9 10^3/ul (4.8-10.8)
[2016-09-17 06:47] LABS: POTASSIUM 3.9 mmol/L (3.5-5.1)
[2016-09-17 06:50] LABS: CREATININE 6.95 mg/dl (0.61-1.24)
[2016-09-17 06:51] LABS: CALCIUM 10.3 mg/dl (8.4-10.2)
[2016-09-17] MEDS: LEVETIRACETAM (100 MG/ML) 5ML CUP GTB SCH ×2 (08:54→20:17)
[2016-09-17] MEDS: SEVELAMER CARBONATE 0.8 GM PKT GTB SCH ×3 (08:54→17:30)
[2016-09-17] MEDS: AMLODIPINE 5 MG TAB GTB SCH (08:55)
[2016-09-17] MEDS: SENNA TAB GTB SCH (08:55)
[2016-09-17] MEDS: FOLIC ACID 1 MG TAB GTB SCH (08:55)
[2016-09-17] MEDS: MULTIVIT/CA CARB/B CMPLX/FA TAB GTB SCH (08:55)
[2016-09-17] MEDS: METOPROLOL 25 MG TAB GTB SCH ×2 (08:55→20:17)
[2016-09-17] MEDS: BACITRACIN/POLYMYX 3.5 GM OPH OINT BOTH EYES SCH ×2 (08:56→20:18)
[2016-09-17] MEDS ORDERED: EPOETIN 10000 UNITS/1 ML INJ (ESRD) SC SCH (09:00)
[2016-09-17] MEDS: LEVALBUTEROL (NEB) 0.63 MG/3 ML AMP NEB SCH ×4 (09:40→20:05)
--- NOTE | 2016-09-17 09:56 | PN ---
DATE: 09/10/2016 SUBJECTIVE: The patient is stable, no acute events overnight. No fevers, chills, nausea, vomiting. OBJECTIVE: VITAL SIGNS: Blood pressure 130/74, respirations 20, pulse 80, temperature 97.6. HEENT: Head is normocephalic. NECK: Supple. HEART: Regular rate. LUNGS: Show diminished breath sounds at base. ABDOMEN: Soft, nontender to palpation without rebound or guarding. EXTREMITIES: Negative for clubbing, cyanosis, edema. DERMATOLOGIC: No rashes. MUSCULOSKELETAL: No joint effusions. NEUROLOGIC: No change in exam. MEDICATIONS: The patient's medications have been reviewed. LABORATORY DATA: Shows a sodium of 131, potassium 3.9, BUN 117, creatinine 6.95. White count 5.9, hemoglobin 7.9, hematocrit 24.6, platelet count is 381. ASSESSMENT AND PLAN: 1. End-stage renal disease. Plan for dialysis today for 3 hours 3K bath, calcium 2.5. 2. Hyponatremia secondary to end-stage renal disease. Continue on dialysis 140 sodium bath, contin ue to limit free water flushes. 3. Anemia. The patient will be given Epogen today following dialysis, monitor hemoglobin levels. 4. Mineral bone disorder. Continue to monitor calcium and phosphorus levels. Continue dialysis on a low calcium bath. 5. Hypertension. Continue current blood pressure regimen. 6. Sepsis secondary to pneumonia. Continue current antibiotic course. 7. Chronic respiratory failure, status post tracheostomy, Dysphagia, status post percutaneous endos copic gastrostomy. Continue tube feeding. 8. Diabetes. Continue current insulin regimen. 9. Chronic encephalopathy. Continue to monitor. 10. Seizure disorder. Continue medical management. 11. History of intracranial bleed. Dictated By: MARYURI WALLER/FRANCES Conf#: [id number] DID#: [id number]
--- NOTE | 2016-09-17 18:06 | PN ---
Date/Time of Note Date/Time of Note DATE: 09/17/16 TIME: 18:04 Assessment/Plan VTE Prophylaxis VTE Prophylaxis Intervention: SCD's Lines/Catheters IV [facility]ter [facility] (from [facility] Permacath Urinary Cath still in place: No Assessment/Plan Chief Complaint/Hosp Course Assessment/Plan - Acute on chronic encephalopathy, MRI of the brain is negative for any acute stroke. - Sepsis secondary to HCAP, resolving. continue antibiotics per ID. Dr. Benjy lang is following in infection disease consultation. - HCAP. Sputum cultures positive for Pseudomonas. Continue antibiotics per ID. - Chronic respiratory failure with tracheostomy, currently on T-piece. Dr. Freitas is following in pulmonology consultation - End-stage renal disease on hemodialysis. Continue hemodialysis per nephrology. Dr. Sales is following in nephrology consultation. - Hypertension. Continue metoprolol and hydralazine. - History of nontraumatic intracranial bleed, status post craniotomy. - Possible seizure disorder. Continue Keppra. - Diabetes. Continue Levemir and NovoLog per mild algorithm sliding scale. - Anemia of chronic kidney disease. - Acute on chronic encephalopathy. [facility]wa[facility] Further recommendations based on clinical course. Plan of care discussed with Dr. Godinez. Problems: Subjective 24 Hr Interval Summary Free Text/Dictation Patient remains afebrile, no acute events. Exam/Review of Systems Vital Signs Vitals Vital Signs Date Time Temp Pulse Resp B/P Pulse Ox O2 Delivery O2 Flow Rate FiO2 09/17/16 16:28 82 26 98 Aerosol 5.0 28 09/17/16 07:38 97.6 132/74 Intake and Output 09/16/16 09/16/16 09/17/16 15:00 23:00 07:00 Intake Total 100 ml 730 ml Output Total 0 ml Balance 100 ml 730 ml Exam Constitutional: lethargic Psych: no complaints Head: atraumatic, normocephalic Eyes: nl conjunctiva ENMT: nl external ears & nose Neck: other (Tracheostomy), supple Respiratory: slightly diminished breath sounds, Cardiovascular: regular rate and rhythm Gastrointestinal: non-tender, other (G-tube), soft Musculoskeletal: nl extremities to inspection Extremities: normal pulses Neurological: confused Additional Comments Right chest permacath Results Result Diagram: 09/17/16 0600 09/17/16 0600 Results 24 hrs Laboratory Tests Test 09/16/16 21:03 09/17/16 00:08 09/17/16 06:00 09/17/16 06:09 Bedside Glucose 139 118 108 White Blood Count 5.9 Red Blood Count 2.77 L Hemoglobin 7.9 L Hematocrit 24.6 L Mean Corpuscular Volume 88.8 Mean Corpuscular Hemoglobin 28.5 L Mean Corpuscular Hemoglobin Concent 32.1 Red Cell Distribution Width 15.7 H Platelet Count 381 Mean Platelet Volume 9.9 Neutrophils % 75.1 Lymphocytes % 11.2 L Monocytes % 7.3 Eosinophils % 5.4 Basophils % 0.5 Nucleated Red Blood Cells % 0.0 Neutrophils # 4.4 Lymphocytes # 0.7 L Monocytes # 0.4 Eosinophils # 0.3 Basophils # 0.0 Nucleated Red Blood Cells # 0.0 Sodium Level 131 L Potassium Level 3.9 Chloride Level 92 L Carbon Dioxide Level 24 Anion Gap 19 H Blood Urea Nitrogen 117 H Creatinine 6.95 H Glucose Level 74 Calcium Level 10.3 H Test 09/17/16 12:11 09/17/16 17:32 Bedside Glucose 89 115 Medications Medications Current Medications Amlodipine Besylate (Norvasc) 5 mg DAILY GTB Last administered on 09/12/16 09: 38; Admin Dose 5 MG; Start 08/30/16 at 09:00 Clonidine (Catapres) 0.1 mg DAILY PRN GTB ELEVATED SYSTOLIC BP; Start 08/29/16 at 23:00 Doxazosin Mesylate (Cardura) 2 mg QHS GTB Last administered on 09/16/16 21:07 ; Admin Dose 2 MG; Start 08/30/16 at 21:00 Folic Acid (Folic Acid) 1 mg DAILY GTB Last administered on 09/17/16 08:55; Admin Dose 1 MG; Start 08/30/16 at 09:00 Hydralazine HCl (Apresoline) 50 mg Q8 GTB Last administered on 09/17/16 14:19 ; Admin Dose 50 MG; Start 08/30/16 at 06:00 Levetiracetam (Keppra Liquid) 500 mg BID GTB Last administered on 09/17/16 08: 54; Admin Dose 500 MG; Start 08/30/16 at 09:00 Metoprolol Tartrate (Lopressor) 25 mg BID GTB Last administered on 09/16/16 21 :07; Admin Dose 25 MG; Start 08/30/16 at 09:00 Multivit/Ca Carb/ B Cmplx/FA/Prenat (Leah-Juan Jose) 1 tab DAILY GTB Last administered on 09/17/16 08:55; Admin Dose 1 TAB; Start 08/30/16 at 09:00 Ondansetron HCl (Zofran Tab) 4 mg Q6H PRN GTB NAUSEA AND/OR VOMITING; Start at 23:00 Senna (Senokot) 1 tab DAILY GTB Last administered on 09/17/16 08:55; Admin Dose 1 TAB; Start 08/30/16 at 09:00 Zolpidem Tartrate (Ambien) 5 mg QHS PRN GTB INSOMNIA; Start 08/29/16 at 23:00 Lansoprazole (Prevacid) 30 mg DAILY@06 GTB Last administered on 09/17/16 05:19 ; Admin Dose 30 MG; Start 08/30/16 at 06:00 Acetaminophen (Tylenol Liquid) 650 mg Q4H PRN GTB PAIN AND OR ELEVATED TEMP Last administered on 09/13/16 09:35; Admin Dose 650 MG; Start 08/29/16 at 23:00 Insulin Aspart (Novolog Insulin Pen) NOVOLOG *MILD* ALGORI... Q6 SC Last administered on 09/14/16 23:53; Admin Dose 1 UNIT; Start 08/30/16 at 00:00 Miscellaneous Information 1 ea NOTE XX ; Start 08/31/16 at 07:00 Glucose (Glutose) 15 gm Q15M PRN PO DECREASED GLUCOSE; Start 08/31/16 at 07:00 Glucose (Glutose) 22.5 gm Q15M PRN PO DECREASED GLUCOSE; Start 08/31/16 at 07: 00 Dextrose (D50w Syringe) 25 ml Q15M PRN IV DECREASED GLUCOSE; Start 08/31/16 at 07:00 Dextrose (D50w Syringe) 50 ml Q15M PRN IV DECREASED GLUCOSE; Start 08/31/16 at 07:00 Glucagon (Glucagen) 1 mg Q15M PRN IM DECREASED GLUCOSE; Start 08/31/16 at 07:00 Glucose (Glutose) 15 gm Q15M PRN BUCCAL DECREASED GLUCOSE; Start 08/31/16 at 07 :00 Insulin Detemir (Levemir) 12 unit HS SC Last administered on 09/16/16 21:09; Admin Dose 12 UNIT; Start 09/03/16 at 21:00 Bacitracin/ Polymyxin B Sulfate 1 applic 1 applic BID BOTH EYES Last administered on 09/17/16 08:56; Admin Dose 1 APPLIC; Start 09/08/16 at 12:00 Meropenem (Merrem 500 Mg/ 100 ml (Pmx)) 100 ml @ 200 mls/hr Q24H IVPB Last administered on 09/16/16 20:51; Admin Dose 200 MLS/HR; Start 09/13/16 at 20:00 NOELLE JIMENEZ September 17, 2016 18:06
[2016-09-17] MEDS: MEROPENEM 500 MG/100 ML (PMX) 100 ML IVPB SCH (20:17)
[2016-09-17] MEDS: DOXAZOSIN 2 MG TAB GTB SCH (20:18)
[2016-09-17] MEDS: INSULIN DETEMIR [LEVEMIR] 3ML CART SC SCH (20:27)
[2016-09-18] MEDS: INSULIN ASPART [NOVOLOG] 3 ML PEN SC SCH ×3 (06:00→17:25)
[2016-09-18 06:13] LABS: ADD SCAN DIFF NO
[2016-09-18 06:14] LABS: BASOPHIL # 0.1 10^3/ul (0.0-0.1); EOSINOPHILS # 0.2 10^3/ul (0.0-0.5); EOSINOPHILS % 3.7 % (0.0-7.0); HEMATOCRIT 26.6 % (42.0-52.0); HEMOGLOBIN 8.4 g/dl (14.0-18.0); LYMPHOCYTES # 0.9 10^3/ul (0.8-2.9); MEAN CORPUSCULAR HGB CONC 31.6 g/dl (32.0-37.0); MEAN CORPUSCULAR VOLUME 91.7 fl (82.0-101.0); MONOCYTE # 0.5 10^3/ul (0.3-0.9); MONOCYTES % 8.5 % (0.0-11.0); NEUTROPHIL # 4.5 10^3/ul (1.6-7.5); NEUTROPHILS % 72.3 % (39.0-77.0); PLATELET COUNT 425 10^3/UL (140-415); RED CELL DISTRIBUTION WIDTH 15.9 % (11.5-14.5); WHITE BLOOD COUNT 6.2 10^3/ul (4.8-10.8)
[2016-09-18 06:19] LABS: POTASSIUM 3.2 mmol/L (3.5-5.1)
[2016-09-18] MEDS: LANSOPRAZOLE 30 MG CAP GTB SCH (06:19)
[2016-09-18 06:22] LABS: CREATININE 4.42 mg/dl (0.61-1.24)
[2016-09-18 07:41] VITALS: BP 118/56; RESP 17
[2016-09-18] MEDS: LEVALBUTEROL (NEB) 0.63 MG/3 ML AMP NEB SCH ×4 (08:48→20:36)
[2016-09-18] MEDS: LEVETIRACETAM (100 MG/ML) 5ML CUP GTB SCH ×2 (08:53→21:40)
[2016-09-18] MEDS: FOLIC ACID 1 MG TAB GTB SCH (08:53)
[2016-09-18] MEDS: METOPROLOL 25 MG TAB GTB SCH ×2 (08:54→21:50)
[2016-09-18] MEDS: AMLODIPINE 5 MG TAB GTB SCH (08:54)
[2016-09-18] MEDS: SENNA TAB GTB SCH (08:54)
[2016-09-18] MEDS: MULTIVIT/CA CARB/B CMPLX/FA TAB GTB SCH (08:54)
[2016-09-18] MEDS: SEVELAMER CARBONATE 0.8 GM PKT GTB SCH ×3 (08:54→17:25)
[2016-09-18] MEDS: BACITRACIN/POLYMYX 3.5 GM OPH OINT BOTH EYES SCH ×2 (08:55→21:39)
[2016-09-18] MEDS ORDERED: POTASSIUM CHLORIDE 20 MEQ POWDER FOR ORAL SOLN GTB ONE (10:00)
--- NOTE | 2016-09-18 11:08 | PN ---
DATE: 09/18/2016 SUBJECTIVE: The patient had hemodialysis yesterday, tolerated it well. No other events noted. OBJECTIVE: VITAL SIGNS: Blood pressure 118/76, respirations 17, pulse , temperature 98.3. HEENT: Head is normocephalic. NECK: Supple, with a trach. HEART: Regular rate. LUNGS: Show diminished breath sounds at the bases. ABDOMEN: Soft, nontender to palpation. No rebound or guarding. EXTREMITIES: Negative for clubbing, cyanosis. No edema. DERMATOLOGIC: No rashes. MUSCULOSKELETAL: No joint effusions. NEUROLOGIC: No change in exam. MEDICATIONS: The patient's medications have been reviewed. LABORATORY DATA: Showed sodium 140, potassium 2.2, chloride 100, BUN 65, creatinine 4.42. White co unt 6.3, hemoglobin 8.4, hematocrit 26.6, platelet count is 425. ASSESSMENT AND PLAN: 1. End-stage renal disease. The patient had hemodialysis yesterday, tolerated it well. Plan for d ialysis tomorrow. 2. Hypokalemia, replete potassium chloride. 3. Hyponatremia secondary to end-stage renal disease. Continue to monitor. Continue dialysis on a 140 sodium bath. 4. Anemia. Continue to monitor hemoglobin and hematocrit levels. Continue Epogen. 5. Mineral bone disorder. Continue to monitor calcium and phosphorus levels. 6. Hypertension. Continue current blood pressure regimen. 7. Sepsis secondary to pneumonia. Continue current antibiotic regimen. 8. Chronic respiratory failure, status post trach. Continue current treatment plan. Follow up wit h pulmonary. 9. Dysphagia, status post percutaneous endoscopic gastrostomy. Continue tube feed. 10. Diabetes. Continue current insulin regimen. 11. Chronic encephalopathy. Continue to monitor. 12. Seizure disorder. Continue medical management. 13. History of intracranial bleed. Dictated By: MARYURI WALLER/FRANCES Conf#: [id number] DID#: [id number]
[2016-09-18 14:00] VITALS: BP 99/58
--- NOTE | 2016-09-18 17:05 | PN ---
Date/Time of Note Date/Time of Note DATE: 09/18/16 TIME: 17:04 Assessment/Plan VTE Prophylaxis VTE Prophylaxis Intervention: SCD's Lines/Catheters [facility] Permacath Urinary Cath still in place: No Assessment/Plan Chief Complaint/Hosp Course Assessment/Plan - Acute on chronic encephalopathy, MRI of the brain is negative for any acute stroke. - Sepsis secondary to HCAP, resolving. continue antibiotics per ID. Dr. Benjy lang is following in infection disease consultation. - HCAP. Sputum cultures positive for Pseudomonas. Continue antibiotics per ID. - Chronic respiratory failure with tracheostomy, currently on T-piece. Dr. Freitas is following in pulmonology consultation - End-stage renal disease on hemodialysis. Continue hemodialysis per nephrology. Dr. Sales is following in nephrology consultation. - Hypertension. Continue metoprolol and hydralazine. - History of nontraumatic intracranial bleed, status post craniotomy. - Possible seizure disorder. Continue Keppra. - Diabetes. Continue Levemir and NovoLog per mild algorithm sliding scale. - Anemia of chronic kidney disease. - Acute on chronic encephalopathy. Awaits residential facility placement Further recommendations based on clinical course. Plan of care discussed with Dr. Godinez. Problems: Subjective 24 Hr Interval Summary Free Text/Dictation Patient is more awake today opens eyes in response to verbal stimuli, remains afebrile. Exam/Review of Systems Vital Signs Vitals Vital Signs Date Time Temp Pulse Resp B/P Pulse Ox O2 Delivery O2 Flow Rate FiO2 09/18/16 15:54 85 18 100 Aerosol 5.0 28 T Tube 09/18/16 14:00 99/58 09/18/16 07:41 98.3 Intake and Output 09/17/16 09/17/16 09/18/16 15:00 23:00 07:00 Intake Total 300 ml 660 ml 100 ml Output Total 1800 ml Balance -1500 ml 660 ml 100 ml Exam Constitutional: lethargic Psych: no complaints Head: atraumatic, normocephalic Eyes: nl conjunctiva ENMT: nl external ears & nose Neck: other (Tracheostomy), supple Respiratory: slightly diminished breath sounds, Cardiovascular: regular rate and rhythm Gastrointestinal: non-tender, other (G-tube), soft Musculoskeletal: nl extremities to inspection Extremities: normal pulses Neurological: confused Additional Comments Right chest permacath Results Result Diagram: 09/18/16 0504 09/18/16 0504 Results 24 hrs Laboratory Tests Test 09/17/16 17:32 09/17/16 20:24 09/17/16 23:41 09/18/16 05:04 Bedside Glucose 115 122 99 White Blood Count 6.2 Red Blood Count 2.90 L Hemoglobin 8.4 L Hematocrit 26.6 L Mean Corpuscular Volume 91.7 Mean Corpuscular Hemoglobin 29.0 Mean Corpuscular Hemoglobin Concent 31.6 L Red Cell Distribution Width 15.9 H Platelet Count 425 H Mean Platelet Volume 10.0 Neutrophils % 72.3 Lymphocytes % 14.0 L Monocytes % 8.5 Eosinophils % 3.7 Basophils % 1.0 Nucleated Red Blood Cells % 0.0 Neutrophils # 4.5 Lymphocytes # 0.9 Monocytes # 0.5 Eosinophils # 0.2 Basophils # 0.1 Nucleated Red Blood Cells # 0.0 Sodium Level 140 Potassium Level 3.2 L Chloride Level 100 Carbon Dioxide Level 30 Anion Gap 13 Blood Urea Nitrogen 65 #H Creatinine 4.42 #H Glucose Level 73 Calcium Level 10.0 Test 09/18/16 06:17 09/18/16 11:41 Bedside Glucose 88 85 Medications Medications Current Medications Amlodipine Besylate (Norvasc) 5 mg DAILY GTB Last administered on 09/18/16 08: 54; Admin Dose 5 MG; Start 08/30/16 at 09:00 Clonidine (Catapres) 0.1 mg DAILY PRN GTB ELEVATED SYSTOLIC BP; Start 08/29/16 at 23:00 Doxazosin Mesylate (Cardura) 2 mg QHS GTB Last administered on 09/17/16 20:18 ; Admin Dose 2 MG; Start 08/30/16 at 21:00 Folic Acid (Folic Acid) 1 mg DAILY GTB Last administered on 09/18/16 08:53; Admin Dose 1 MG; Start 08/30/16 at 09:00 Hydralazine HCl (Apresoline) 50 mg Q8 GTB Last administered on 09/18/16 06:21 ; Admin Dose 50 MG; Start 08/30/16 at 06:00 Levetiracetam (Keppra Liquid) 500 mg BID GTB Last administered on 09/18/16 08: 53; Admin Dose 500 MG; Start 08/30/16 at 09:00 Metoprolol Tartrate (Lopressor) 25 mg BID GTB Last administered on 09/18/16 08 :54; Admin Dose 25 MG; Start 08/30/16 at 09:00 Multivit/Ca Carb/ B Cmplx/FA/Prenat (Leah-Juan Jose) 1 tab DAILY GTB Last administered on 09/18/16 08:54; Admin Dose 1 TAB; Start 08/30/16 at 09:00 Ondansetron HCl (Zofran Tab) 4 mg Q6H PRN GTB NAUSEA AND/OR VOMITING; Start at 23:00 Senna (Senokot) 1 tab DAILY GTB Last administered on 09/18/16 08:54; Admin Dose 1 TAB; Start 08/30/16 at 09:00 Zolpidem Tartrate (Ambien) 5 mg QHS PRN GTB INSOMNIA; Start 08/29/16 at 23:00 Lansoprazole (Prevacid) 30 mg DAILY@06 GTB Last administered on 09/18/16 06:19 ; Admin Dose 30 MG; Start 08/30/16 at 06:00 Acetaminophen (Tylenol Liquid) 650 mg Q4H PRN GTB PAIN AND OR ELEVATED TEMP Last administered on 09/13/16 09:35; Admin Dose 650 MG; Start 08/29/16 at 23:00 Insulin Aspart (Novolog Insulin Pen) NOVOLOG *MILD* ALGORI... Q6 SC Last administered on 09/14/16 23:53; Admin Dose 1 UNIT; Start 08/30/16 at 00:00 Miscellaneous Information 1 ea NOTE XX ; Start 08/31/16 at 07:00 Glucose (Glutose) 15 gm Q15M PRN PO DECREASED GLUCOSE; Start 08/31/16 at 07:00 Glucose (Glutose) 22.5 gm Q15M PRN PO DECREASED GLUCOSE; Start 08/31/16 at 07: 00 Dextrose (D50w Syringe) 25 ml Q15M PRN IV DECREASED GLUCOSE; Start 08/31/16 at 07:00 Dextrose (D50w Syringe) 50 ml Q15M PRN IV DECREASED GLUCOSE; Start 08/31/16 at 07:00 Glucagon (Glucagen) 1 mg Q15M PRN IM DECREASED GLUCOSE; Start 08/31/16 at 07:00 Glucose (Glutose) 15 gm Q15M PRN BUCCAL DECREASED GLUCOSE; Start 08/31/16 at 07 :00 Insulin Detemir (Levemir) 12 unit HS SC Last administered on 09/17/16 20:27; Admin Dose 12 UNIT; Start 09/03/16 at 21:00 Bacitracin/ Polymyxin B Sulfate 1 applic 1 applic BID BOTH EYES Last administered on 09/18/16 08:55; Admin Dose 1 APPLIC; Start 09/08/16 at 12:00 Meropenem (Merrem 500 Mg/ 100 ml (Pmx)) 100 ml @ 200 mls/hr Q24H IVPB Last administered on 09/17/16 20:17; Admin Dose 200 MLS/HR; Start 09/13/16 at 20:00 NOELLE JIMENEZ September 18, 2016 17:05
--- NOTE | 2016-09-18 18:28 | CONS ---
Date/Time of Note Date/Time of Note DATE: 09/18/16 TIME: 18:23 Assessment/Plan Assessment/Plan Chief Complaint/Hosp Course - sepsis due to HCAP - HCAP due to pseudomonas per resp cx on 08/29/16 & 09/13/16 (now intermediate sensitivity to Cefepime) - Chronic respiratory failure with trach - G tube dependent - h/o intracranial bleed s/p craniotomy - ESRD on HD - hyponatremia - improved - T2DM - Hgb A1c 4.8% 08/08/16 per [facility] records - HTN associated with DM - anemia of CKD - thrombocytosis - BPH - Hx prostate CA per [facility] records ([facility]) - acute on chronic encephalopathy - MRI brain 09/12/16 showed no acute infarct; improving - fever due to persistent pseudomonas -improving Note: Pt took Cefepime (08/29/16-09/13/16) and Caspofungin (09/13/16-09/16/16) recommendations: - F/u 1,0-zdjv-S-glucan and procalcitonin - Continue renally dosed meropenem (09/13/2016-) for HCAP Management d/w CALE Nuñez and Dr. Burleson Problems: Consultation Date/Type/Reason Admit Date/Time Aug 29, 2016 at 16:21 Initial Consult Date 08/31/16 Type of Consultation: Infectious Disease Referring Provider: CANDY JUAREZ 24 HR Interval Summary Free Text/Dictation Potassium was replace; awaiting placement per d/w CALE Nuñez. Nods no to pain. ROS limited as pt is non-verbal and selectively responds to questioning. Exam/Review of Systems Vital Signs Vitals Vital Signs Date Time Temp Pulse Resp B/P Pulse Ox O2 Delivery O2 Flow Rate FiO2 09/18/16 15:54 85 18 100 Aerosol 5.0 28 T Tube 09/18/16 14:00 99/58 09/18/16 07:41 98.3 Intake and Output 09/17/16 09/17/16 09/18/16 15:00 23:00 07:00 Intake Total 300 ml 660 ml 100 ml Output Total 1800 ml Balance -1500 ml 660 ml 100 ml Exam Constitutional: alert, non-verbal, well developed Head: atraumatic, normocephalic Eyes: nl sclera Neck: other (trach in place) Respiratory: diminished breath sounds, other (Right chest wall HD catheter intact) Cardiovascular: regular rate and rhythm Gastrointestinal: bowel sounds (present), other (GT intact with tube feeds), soft Extremities: edema (LUE d/t infiltrated IV site - RN notified), other (atrophy noted; RUE AVF +bruit/thrill), tenderness (LUE d/t infiltrated IV site - RN notified) Neurological: confused, other (Selectively tracking and nods to simple questions) Skin: nl turgor, other (wounds- see nurse note and photos in chart for details) Results Result Diagram: 09/18/16 0504 09/18/16 0504 Results 24 hrs Laboratory Tests Test 09/17/16 20:24 09/17/16 23:41 09/18/16 05:04 09/18/16 06:17 Bedside Glucose 122 99 88 White Blood Count 6.2 Red Blood Count 2.90 L Hemoglobin 8.4 L Hematocrit 26.6 L Mean Corpuscular Volume 91.7 Mean Corpuscular Hemoglobin 29.0 Mean Corpuscular Hemoglobin Concent 31.6 L Red Cell Distribution Width 15.9 H Platelet Count 425 H Mean Platelet Volume 10.0 Neutrophils % 72.3 Lymphocytes % 14.0 L Monocytes % 8.5 Eosinophils % 3.7 Basophils % 1.0 Nucleated Red Blood Cells % 0.0 Neutrophils # 4.5 Lymphocytes # 0.9 Monocytes # 0.5 Eosinophils # 0.2 Basophils # 0.1 Nucleated Red Blood Cells # 0.0 Sodium Level 140 Potassium Level 3.2 L Chloride Level 100 Carbon Dioxide Level 30 Anion Gap 13 Blood Urea Nitrogen 65 #H Creatinine 4.42 #H Glucose Level 73 Calcium Level 10.0 Test 09/18/16 11:41 09/18/16 17:23 Bedside Glucose 85 95 Medications Medications Current Medications Amlodipine Besylate (Norvasc) 5 mg DAILY GTB Last administered on 09/18/16 08: 54; Admin Dose 5 MG; Start 08/30/16 at 09:00 Clonidine (Catapres) 0.1 mg DAILY PRN GTB ELEVATED SYSTOLIC BP; Start 08/29/16 at 23:00 Doxazosin Mesylate (Cardura) 2 mg QHS GTB Last administered on 09/17/16 20:18 ; Admin Dose 2 MG; Start 08/30/16 at 21:00 Folic Acid (Folic Acid) 1 mg DAILY GTB Last administered on 09/18/16 08:53; Admin Dose 1 MG; Start 08/30/16 at 09:00 Hydralazine HCl (Apresoline) 50 mg Q8 GTB Last administered on 09/18/16 06:21 ; Admin Dose 50 MG; Start 08/30/16 at 06:00 Levetiracetam (Keppra Liquid) 500 mg BID GTB Last administered on 09/18/16 08: 53; Admin Dose 500 MG; Start 08/30/16 at 09:00 Metoprolol Tartrate (Lopressor) 25 mg BID GTB Last administered on 09/18/16 08 :54; Admin Dose 25 MG; Start 08/30/16 at 09:00 Multivit/Ca Carb/ B Cmplx/FA/Prenat (Leah-Juan Jose) 1 tab DAILY GTB Last administered on 09/18/16 08:54; Admin Dose 1 TAB; Start 08/30/16 at 09:00 Ondansetron HCl (Zofran Tab) 4 mg Q6H PRN GTB NAUSEA AND/OR VOMITING; Start at 23:00 Senna (Senokot) 1 tab DAILY GTB Last administered on 09/18/16 08:54; Admin Dose 1 TAB; Start 08/30/16 at 09:00 Zolpidem Tartrate (Ambien) 5 mg QHS PRN GTB INSOMNIA; Start 08/29/16 at 23:00 Lansoprazole (Prevacid) 30 mg DAILY@06 GTB Last administered on 09/18/16 06:19 ; Admin Dose 30 MG; Start 08/30/16 at 06:00 Acetaminophen (Tylenol Liquid) 650 mg Q4H PRN GTB PAIN AND OR ELEVATED TEMP Last administered on 09/13/16 09:35; Admin Dose 650 MG; Start 08/29/16 at 23:00 Insulin Aspart (Novolog Insulin Pen) NOVOLOG *MILD* ALGORI... Q6 SC Last administered on 09/14/16 23:53; Admin Dose 1 UNIT; Start 08/30/16 at 00:00 Miscellaneous Information 1 ea NOTE XX ; Start 08/31/16 at 07:00 Glucose (Glutose) 15 gm Q15M PRN PO DECREASED GLUCOSE; Start 08/31/16 at 07:00 Glucose (Glutose) 22.5 gm Q15M PRN PO DECREASED GLUCOSE; Start 08/31/16 at 07: 00 Dextrose (D50w Syringe) 25 ml Q15M PRN IV DECREASED GLUCOSE; Start 08/31/16 at 07:00 Dextrose (D50w Syringe) 50 ml Q15M PRN IV DECREASED GLUCOSE; Start 08/31/16 at 07:00 Glucagon (Glucagen) 1 mg Q15M PRN IM DECREASED GLUCOSE; Start 08/31/16 at 07:00 Glucose (Glutose) 15 gm Q15M PRN BUCCAL DECREASED GLUCOSE; Start 08/31/16 at 07 :00 Insulin Detemir (Levemir) 12 unit HS SC Last administered on 09/17/16 20:27; Admin Dose 12 UNIT; Start 09/03/16 at 21:00 Bacitracin/ Polymyxin B Sulfate 1 applic 1 applic BID BOTH EYES Last administered on 09/18/16 08:55; Admin Dose 1 APPLIC; Start 09/08/16 at 12:00 Meropenem (Merrem 500 Mg/ 100 ml (Pmx)) 100 ml @ 200 mls/hr Q24H IVPB Last administered on 09/17/16 20:17; Admin Dose 200 MLS/HR; Start 09/13/16 at 20:00 NOVA HACKETT NP September 18, 2016 18:28
[2016-09-18 19:22] VITALS: BP 131/62; RESP 16
[2016-09-18] MEDS: DOXAZOSIN 2 MG TAB GTB SCH (21:39)
[2016-09-18] MEDS: MEROPENEM 500 MG/100 ML (PMX) 100 ML IVPB SCH (21:39)
[2016-09-18] MEDS: INSULIN DETEMIR [LEVEMIR] 3ML CART SC SCH (21:42)
[2016-09-19] VITALS (12 sets, daily range): BP systolic 112–157; BP diastolic 59–91; PULSE 76–97; RESP 18–20
[2016-09-19 05:55] LABS: CALCIUM 10.4 mg/dl (8.4-10.2); CREATININE 5.36 mg/dl (0.61-1.24); POTASSIUM 4.2 mmol/L (3.5-5.1)
[2016-09-19] MEDS: INSULIN ASPART [NOVOLOG] 3 ML PEN SC SCH ×4 (06:00→17:16)
[2016-09-19] MEDS: LANSOPRAZOLE 30 MG CAP GTB SCH (06:18)
[2016-09-19] MEDS: LEVALBUTEROL (NEB) 0.63 MG/3 ML AMP NEB SCH ×4 (08:59→19:31)
[2016-09-19] MEDS: AMLODIPINE 5 MG TAB GTB SCH (09:00)
[2016-09-19] MEDS: METOPROLOL 25 MG TAB GTB SCH ×2 (09:00→20:11)
[2016-09-19] MEDS: SENNA TAB GTB SCH (09:07)
[2016-09-19] MEDS: FOLIC ACID 1 MG TAB GTB SCH (09:07)
[2016-09-19] MEDS: LEVETIRACETAM (100 MG/ML) 5ML CUP GTB SCH ×2 (09:07→20:10)
[2016-09-19] MEDS: MULTIVIT/CA CARB/B CMPLX/FA TAB GTB SCH (09:08)
[2016-09-19] MEDS: SEVELAMER CARBONATE 0.8 GM PKT GTB SCH ×3 (09:08→17:12)
[2016-09-19] MEDS: BACITRACIN/POLYMYX 3.5 GM OPH OINT BOTH EYES SCH ×2 (09:08→20:26)
--- NOTE | 2016-09-19 10:29 | PN ---
DATE: 09/19/2016 SUBJECTIVE: The patient is stable, no acute events overnight. No fevers, chills, nausea, vomiting. OBJECTIVE: VITAL SIGNS: Blood pressure 130/60, respirations 20, pulse 77, temperature 97.8. HEENT: Head is normocephalic. NECK: Shows trach. HEART: Regular rate. LUNGS: Show diminished breath sounds at base. ABDOMEN: Soft, nontender to palpation without rebound or guarding. EXTREMITIES: Negative for clubbing, cyanosis, no edema. DERMATOLOGIC: No rashes. MUSCULOSKELETAL: No joint effusions. NEUROLOGIC: No change in exam. MEDICATIONS: The patient's medications have been reviewed. LABORATORY DATA: Sodium 137, potassium 4.2, chloride 101, BUN 81, creatinine 5.36, calcium 10.4. W yaneth count 6.2, hemoglobin 8.4, hematocrit 26.6, platelet count 425. ASSESSMENT AND PLAN: 1. End-stage renal disease. The patient is scheduled for hemodialysis today with dialysis for 3 ho urs, 3K back, calcium 2.5. 2. Hyponatremia, improved. 3. Anemia. Continue to monitor hemoglobin and hematocrit levels. Continue Epogen. 4. Mineral bone disorder. Continue to monitor calcium and phosphorus levels. 5. Hypertension. Continue current blood pressure regimen. 6. Sepsis secondary to pneumonia. Continue current antibiotic regimen. 7. Chronic respiratory failure, status post tracheostomy, currently stable. Continue to monitor. Follow up with pulmonary. 8. Diabetes, continue Accu-Cheks, insulin sliding scale. 9. Chronic encephalopathy. Continue to monitor. 10. Seizure disorder. Continue medical management. 11. History of intracranial bleed. Dictated By: MARYURI WALLER/FRANCES Conf#: [id number] DID#: [id number]
--- NOTE | 2016-09-19 16:42 | CONS ---
Date/Time of Note Date/Time of Note DATE: 09/19/16 TIME: 16:18 Consult Date/Type/Reason Admit Date/Time Aug 29, 2016 at 16:21 Initial Consult Date 08/31/16 Type of Consultation: Infectious Disease Reason for Consultation Infectious Disease f/u for sepsis due to HCAP Ordering Provider: CANDY JUAREZ Subjective chronic encephalopathy, nonverbal, tracheostomy in place, able to track Objective Vital Signs Date Time Temp Pulse Resp B/P Pulse Ox O2 Delivery O2 Flow Rate FiO2 09/19/16 16:16 84 09/19/16 15:15 14 09/19/16 12:26 99 Aerosol Mask 5.0 28 09/19/16 07:49 97.8 131/60 Intake and Output 09/18/16 09/18/16 09/19/16 15:00 23:00 07:00 Intake Total 760 ml 630 ml Output Total 2 ml Balance 758 ml 630 ml Exam Constitutional: awake, alert, non-verbal Head: atraumatic, normocephalic Eyes: anecteric Neck: trach in place Respiratory: diminished breath sounds, tracheostomy with aerosolized oxygen, HD catheter right chest Cardiovascular: regular rate and rhythm Gastrointestinal: soft, non-distended, audible bowel sounds, GT intact and feeding infusing Genitourinary: ESRD on HD, chux dry Extremities: Multi podus boots on BLE, saline lock left wrist, no swelling or redness Neurological: nonverbal, able to track Skin: warm, dry, multiple wounds- see nurse note and photos in chart for details Results/Medications Result Diagram: 09/18/16 0504 09/19/16 0513 Results 24 hrs Laboratory Tests Test 09/18/16 17:23 09/18/16 21:37 09/19/16 00:19 09/19/16 05:13 Bedside Glucose 95 122 105 Sodium Level 137 Potassium Level 4.2 Chloride Level 101 Carbon Dioxide Level 27 Anion Gap 13 Blood Urea Nitrogen 81 H Creatinine 5.36 H Glucose Level 96 Calcium Level 10.4 H Test 09/19/16 06:16 09/19/16 07:51 09/19/16 12:10 Bedside Glucose 92 92 Lab Scanned Report REFERENCE LAB Medications Current Medications Amlodipine Besylate (Norvasc) 5 mg DAILY GTB Last administered on 09/18/16t 08: 54; Admin Dose 5 MG; Start 08/30/16 at 09:00 Clonidine (Catapres) 0.1 mg DAILY PRN GTB ELEVATED SYSTOLIC BP; Start 08/29/16 at 23:00 Doxazosin Mesylate (Cardura) 2 mg QHS GTB Last administered on 09/18/16 21:39 ; Admin Dose 2 MG; Start 08/30/16 at 21:00 Folic Acid (Folic Acid) 1 mg DAILY GTB Last administered on 09/19/16 09:07; Admin Dose 1 MG; Start 08/30/16 at 09:00 Hydralazine HCl (Apresoline) 50 mg Q8 GTB Last administered on 09/18/16 21:38 ; Admin Dose 50 MG; Start 08/30/16 at 06:00 Levetiracetam (Keppra Liquid) 500 mg BID GTB Last administered on 09/19/16 09: 07; Admin Dose 500 MG; Start 08/30/16 at 09:00 Metoprolol Tartrate (Lopressor) 25 mg BID GTB Last administered on 09/18/16 21 :50; Admin Dose 25 MG; Start 08/30/16 at 09:00 Multivit/Ca Carb/ B Cmplx/FA/Prenat (Leah-Juan Jose) 1 tab DAILY GTB Last administered on 09/19/16 09:08; Admin Dose 1 TAB; Start 08/30/16 at 09:00 Ondansetron HCl (Zofran Tab) 4 mg Q6H PRN GTB NAUSEA AND/OR VOMITING; Start at 23:00 Senna (Senokot) 1 tab DAILY GTB Last administered on 09/19/16 09:07; Admin Dose 1 TAB; Start 08/30/16 at 09:00 Zolpidem Tartrate (Ambien) 5 mg QHS PRN GTB INSOMNIA; Start 08/29/16 at 23:00 Lansoprazole (Prevacid) 30 mg DAILY@06 GTB Last administered on 09/19/16 06:18 ; Admin Dose 30 MG; Start 08/30/16 at 06:00 Acetaminophen (Tylenol Liquid) 650 mg Q4H PRN GTB PAIN AND OR ELEVATED TEMP Last administered on 09/13/16 09:35; Admin Dose 650 MG; Start 08/29/16 at 23:00 Insulin Aspart (Novolog Insulin Pen) NOVOLOG *MILD* ALGORI... Q6 SC Last administered on 09/14/16 23:53; Admin Dose 1 UNIT; Start 08/30/16 at 00:00 Miscellaneous Information 1 ea NOTE XX ; Start 08/31/16 at 07:00 Glucose (Glutose) 15 gm Q15M PRN PO DECREASED GLUCOSE; Start 08/31/16 at 07:00 Glucose (Glutose) 22.5 gm Q15M PRN PO DECREASED GLUCOSE; Start 08/31/16 at 07: 00 Dextrose (D50w Syringe) 25 ml Q15M PRN IV DECREASED GLUCOSE; Start 08/31/16 at 07:00 Dextrose (D50w Syringe) 50 ml Q15M PRN IV DECREASED GLUCOSE; Start 08/31/16 at 07:00 Glucagon (Glucagen) 1 mg Q15M PRN IM DECREASED GLUCOSE; Start 08/31/16 at 07:00 Glucose (Glutose) 15 gm Q15M PRN BUCCAL DECREASED GLUCOSE; Start 08/31/16 at 07 :00 Insulin Detemir (Levemir) 12 unit HS SC Last administered on 09/18/16 21:42; Admin Dose 12 UNIT; Start 09/03/16 at 21:00 Bacitracin/ Polymyxin B Sulfate 1 applic 1 applic BID BOTH EYES Last administered on 09/19/16 09:08; Admin Dose 1 APPLIC; Start 09/08/16 at 12:00 Meropenem (Merrem 500 Mg/ 100 ml (Pmx)) 100 ml @ 200 mls/hr Q24H IVPB Last administered on 09/18/16 21:39; Admin Dose 200 MLS/HR; Start 09/13/16 at 20:00 Assessment/Plan Chief Complaint/Hosp Course Assessment/Plan Chief Complaint/Hosp Course - sepsis due to HCAP - HCAP due to pseudomonas per resp cx on 08/29/16 & 09/13/16 (now intermediate sensitivity to Cefepime) - Chronic respiratory failure with trach - G tube dependent - h/o intracranial bleed s/p craniotomy - ESRD on HD - hyponatremia - improved - T2DM - Hgb A1c 4.8% 08/08/16 [facility] records - HTN associated with DM - anemia of CKD - thrombocytosis - BPH - Hx prostate CA per [facility] records ([facility]) - acute on chronic encephalopathy - MRI brain 09/12/16 showed no acute infarct; improving - fever due to persistent pseudomonas -improving Note: Pt took Cefepime (08/29/16-09/13/16) and Caspofungin (09/13/16-09/16/16) recommendations: - F/u 1,8-pvkh-U-glucan and procalcitonin - - Continue renally dosed meropenem (09/13/2016-) for HCAP - Care and management d/w Dr. Burleson Problems: Additional Assessment/Plan stable MEHREEN ALBERT September 19, 2016 16:28
--- NOTE | 2016-09-19 17:15 | PN ---
Date/Time of Note Date/Time of Note DATE: 09/19/16 TIME: 17:14 Assessment/Plan VTE Prophylaxis VTE Prophylaxis Intervention: SCD's Lines/Catheters IV Catheter Type (from [facility]): permacath Urinary Cath still in place: No Assessment/Plan Chief Complaint/Hosp Course Assessment/Plan - Acute on chronic encephalopathy, MRI of the brain is negative for any acute stroke. - Sepsis secondary to HCAP, resolving. continue antibiotics per ID. Dr. Benjy lang is following in infection disease consultation. - HCAP. Sputum cultures positive for Pseudomonas. Continue antibiotics per ID. - Chronic respiratory failure with tracheostomy, currently on T-piece. Dr. Freitas is following in pulmonology consultation - End-stage renal disease on hemodialysis. Continue hemodialysis per nephrology. Dr. Sales is following in nephrology consultation. - Hypertension. Continue metoprolol and hydralazine. - History of nontraumatic intracranial bleed, status post craniotomy. - Possible seizure disorder. Continue Keppra. - Diabetes. Continue Levemir and NovoLog per mild algorithm sliding scale. - Anemia of chronic kidney disease. - Acute on chronic encephalopathy. Awaits long-term facility placement Further recommendations based on clinical course. Plan of care discussed with Dr. Godinez. Problems: Subjective 24 Hr Interval Summary Free Text/Dictation Patient is awake, neurological status is at baseline, remains afebrile, pending hemodialysis today. Exam/Review of Systems Vital Signs Vitals Vital Signs Date Time Temp Pulse Resp B/P Pulse Ox O2 Delivery O2 Flow Rate FiO2 09/19/16 16:50 89 18 100 Aerosol 5.0 28 T Tube 09/19/16 07:49 97.8 131/60 Intake and Output 09/18/16 09/18/16 09/19/16 15:00 23:00 07:00 Intake Total 760 ml 630 ml Output Total 2 ml Balance 758 ml 630 ml Exam Constitutional: lethargic Psych: no complaints Head: atraumatic, normocephalic Eyes: nl conjunctiva ENMT: nl external ears & nose Neck: other (Tracheostomy), supple Respiratory: slightly diminished breath sounds, Cardiovascular: regular rate and rhythm Gastrointestinal: non-tender, other (G-tube), soft Musculoskeletal: nl extremities to inspection Extremities: normal pulses Neurological: confused Additional Comments Right chest permacath Results Result Diagram: 09/18/16 0504 09/19/16 0513 Results 24 hrs Laboratory Tests Test 09/18/16 17:23 09/18/16 21:37 09/19/16 00:19 09/19/16 05:13 Bedside Glucose 95 122 105 Sodium Level 137 Potassium Level 4.2 Chloride Level 101 Carbon Dioxide Level 27 Anion Gap 13 Blood Urea Nitrogen 81 H Creatinine 5.36 H Glucose Level 96 Calcium Level 10.4 H Test 09/19/16 06:16 09/19/16 07:51 09/19/16 12:10 09/19/16 17:10 Bedside Glucose 92 92 144 Lab Scanned Report REFERENCE LAB Medications Medications Current Medications Amlodipine Besylate (Norvasc) 5 mg DAILY GTB Last administered on 09/18/16 08: 54; Admin Dose 5 MG; Start 08/30/16 at 09:00 Clonidine (Catapres) 0.1 mg DAILY PRN GTB ELEVATED SYSTOLIC BP; Start 08/29/16 at 23:00 Doxazosin Mesylate (Cardura) 2 mg QHS GTB Last administered on 09/18/16 21:39 ; Admin Dose 2 MG; Start 08/30/16 at 21:00 Folic Acid (Folic Acid) 1 mg DAILY GTB Last administered on 09/19/16 09:07; Admin Dose 1 MG; Start 08/30/16 at 09:00 Hydralazine HCl (Apresoline) 50 mg Q8 GTB Last administered on 09/18/16 21:38 ; Admin Dose 50 MG; Start 08/30/16 at 06:00 Levetiracetam (Keppra Liquid) 500 mg BID GTB Last administered on 09/19/16 09: 07; Admin Dose 500 MG; Start 08/30/16 at 09:00 Metoprolol Tartrate (Lopressor) 25 mg BID GTB Last administered on 09/18/16 21 :50; Admin Dose 25 MG; Start 08/30/16 at 09:00 Multivit/Ca Carb/ B Cmplx/FA/Prenat (Leah-Juan Jose) 1 tab DAILY GTB Last administered on 09/19/16 09:08; Admin Dose 1 TAB; Start 08/30/16 at 09:00 Ondansetron HCl (Zofran Tab) 4 mg Q6H PRN GTB NAUSEA AND/OR VOMITING; Start at 23:00 Senna (Senokot) 1 tab DAILY GTB Last administered on 09/19/16 09:07; Admin Dose 1 TAB; Start 08/30/16 at 09:00 Zolpidem Tartrate (Ambien) 5 mg QHS PRN GTB INSOMNIA; Start 08/29/16 at 23:00 Lansoprazole (Prevacid) 30 mg DAILY@06 GTB Last administered on 09/19/16 06:18 ; Admin Dose 30 MG; Start 08/30/16 at 06:00 Acetaminophen (Tylenol Liquid) 650 mg Q4H PRN GTB PAIN AND OR ELEVATED TEMP Last administered on 09/13/16 09:35; Admin Dose 650 MG; Start 08/29/16 at 23:00 Insulin Aspart (Novolog Insulin Pen) NOVOLOG *MILD* ALGORI... Q6 SC Last administered on 09/14/16 23:53; Admin Dose 1 UNIT; Start 08/30/16 at 00:00 Miscellaneous Information 1 ea NOTE XX ; Start 08/31/16 at 07:00 Glucose (Glutose) 15 gm Q15M PRN PO DECREASED GLUCOSE; Start 08/31/16 at 07:00 Glucose (Glutose) 22.5 gm Q15M PRN PO DECREASED GLUCOSE; Start 08/31/16 at 07: 00 Dextrose (D50w Syringe) 25 ml Q15M PRN IV DECREASED GLUCOSE; Start 08/31/16 at 07:00 Dextrose (D50w Syringe) 50 ml Q15M PRN IV DECREASED GLUCOSE; Start 08/31/16 at 07:00 Glucagon (Glucagen) 1 mg Q15M PRN IM DECREASED GLUCOSE; Start 08/31/16 at 07:00 Glucose (Glutose) 15 gm Q15M PRN BUCCAL DECREASED GLUCOSE; Start 08/31/16 at 07 :00 Insulin Detemir (Levemir) 12 unit HS SC Last administered on 09/18/16 21:42; Admin Dose 12 UNIT; Start 09/03/16 at 21:00 Bacitracin/ Polymyxin B Sulfate 1 applic 1 applic BID BOTH EYES Last administered on 09/19/16 09:08; Admin Dose 1 APPLIC; Start 09/08/16 at 12:00 Meropenem (Merrem 500 Mg/ 100 ml (Pmx)) 100 ml @ 200 mls/hr Q24H IVPB Last administered on 09/18/16t 21:39; Admin Dose 200 MLS/HR; Start 09/13/16 at 20:00 NOELLE JIMENEZ September 19, 2016 17:15
[2016-09-19] MEDS: MEROPENEM 500 MG/100 ML (PMX) 100 ML IVPB SCH (20:10)
[2016-09-19] MEDS: INSULIN DETEMIR [LEVEMIR] 3ML CART SC SCH (20:35)
[2016-09-19] MEDS: DOXAZOSIN 2 MG TAB GTB SCH (20:42)
[2016-09-20] MEDS: DEXTROSE 50% 50 ML SYRINGE IV PRN ×2 (00:39→06:33)
[2016-09-20] MEDS: LANSOPRAZOLE 30 MG CAP GTB SCH (05:31)
[2016-09-20 05:37] LABS: ADD SCAN DIFF NO
[2016-09-20 05:44] LABS: BASOPHILS % 0.8 % (0.0-2.0); EOSINOPHILS # 0.3 10^3/ul (0.0-0.5); EOSINOPHILS % 6.6 % (0.0-7.0); HEMATOCRIT 28.7 % (42.0-52.0); HEMOGLOBIN 9.1 g/dl (14.0-18.0); LYMPHOCYTES % 19.8 % (15.0-51.0); MEAN CORPUSCULAR HEMOGLOBIN 29.2 pg (29.0-33.0); MEAN CORPUSCULAR HGB CONC 31.7 g/dl (32.0-37.0); MEAN PLATELET VOLUME 9.8 fl (7.4-10.4); MONOCYTE # 0.5 10^3/ul (0.3-0.9); MONOCYTES % 9.3 % (0.0-11.0); NEUTROPHILS % 62.7 % (39.0-77.0); PLATELET COUNT 380 10^3/UL (140-415); RED BLOOD COUNT 3.12 10^6/ul (4.70-6.10); RED CELL DISTRIBUTION WIDTH 15.9 % (11.5-14.5); WHITE BLOOD COUNT 4.9 10^3/ul (4.8-10.8)
[2016-09-20] MEDS: INSULIN ASPART [NOVOLOG] 3 ML PEN SC SCH ×5 (06:00→23:52)
[2016-09-20 06:16] LABS: CALCIUM 9.9 mg/dl (8.4-10.2); CREATININE 3.21 mg/dl (0.61-1.24); POTASSIUM 3.5 mmol/L (3.5-5.1)
[2016-09-20 07:28] VITALS: BP 136/63; RESP 16
[2016-09-20] MEDS: LEVALBUTEROL (NEB) 0.63 MG/3 ML AMP NEB SCH ×4 (08:34→19:37)
[2016-09-20] MEDS: SENNA TAB GTB SCH (08:57)
[2016-09-20] MEDS: LEVETIRACETAM (100 MG/ML) 5ML CUP GTB SCH ×2 (08:57→20:38)
[2016-09-20] MEDS: SEVELAMER CARBONATE 0.8 GM PKT GTB SCH ×3 (08:57→17:46)
[2016-09-20] MEDS: AMLODIPINE 5 MG TAB GTB SCH (08:57)
[2016-09-20] MEDS: MULTIVIT/CA CARB/B CMPLX/FA TAB GTB SCH (08:57)
[2016-09-20] MEDS: FOLIC ACID 1 MG TAB GTB SCH (08:58)
[2016-09-20] MEDS: METOPROLOL 25 MG TAB GTB SCH ×2 (08:58→20:38)
[2016-09-20] MEDS: BACITRACIN/POLYMYX 3.5 GM OPH OINT BOTH EYES SCH ×2 (08:58→20:37)
--- NOTE | 2016-09-20 09:23 | PN ---
DATE: 09/20/2016 SUBJECTIVE: The patient had hemodialysis yesterday, tolerated it well with 2.4 L removed. No other events noted. No hemoptysis, hematemesis, hematochezia. OBJECTIVE: VITAL SIGNS: Blood pressure 136/63, respirations 16, pulse 71, temperature 98.3. HEENT: Head is normocephalic. NECK: Supple. HEART: Regular rate. LUNGS: Show diminished breath sounds at the base. ABDOMEN: Soft, nontender to palpation, no rebound or guarding. EXTREMITIES: Negative for clubbing, cyanosis, no edema. DERMATOLOGIC: No rashes. MUSCULOSKELETAL: No joint effusions. NEUROLOGIC: No change in exam. MEDICATIONS: Reviewed. LABORATORY DATA: Shows sodium 144, potassium 3.5, BUN 44, creatinine 3.21. White count 4.9, hemogl obin 9.1, hematocrit 28.7, platelet count is 380. ASSESSMENT AND PLAN: 1. End-stage renal disease. The patient was dialyzed yesterday. Plan for dialysis tomorrow. 2. Anemia. Continue to monitor H and H levels. Continue Epogen. 3. Mineral bone disorder. Continue to monitor calcium and phosphorus levels. 4. Hypertension. Continue current blood pressure regimen. 5. Sepsis secondary to pneumonia. The patient has completed an antibiotic course. 6. Chronic respiratory failure status post tracheostomy, currently stable. Continue to monitor. 7. Diabetes. Continue current insulin regimen. 8. Chronic encephalopathy. Continue to monitor. 9. Seizure disorder. Continue medical management. 10. History of intracranial bleed. Dictated By: MARYURI WALLER/FRANCES Conf#: [id number] DID#: [id number]
--- NOTE | 2016-09-20 12:48 | PN ---
Date/Time of Note Date/Time of Note DATE: 09/20/16 TIME: 12:46 Assessment/Plan VTE Prophylaxis VTE Prophylaxis Intervention: SCD's Lines/Catheters [facility] ([facility] PERMA CATH Urinary Cath still in place: No Assessment/Plan Assessment/Plan - Acute on chronic encephalopathy, MRI of the brain is negative for any acute stroke. - Sepsis secondary to HCAP, resolving. continue antibiotics per ID. Dr. Benjy lang is following in infection disease consultation. - HCAP. Sputum cultures positive for Pseudomonas. Continue antibiotics per ID. - Chronic respiratory failure with tracheostomy, currently on T-piece. Dr. Freitas is following in pulmonology consultation - End-stage renal disease on hemodialysis. Continue hemodialysis per nephrology. Dr. Sales is following in nephrology consultation. - Hypertension. Continue metoprolol and hydralazine. - History of nontraumatic intracranial bleed, status post craniotomy. - Possible seizure disorder. Continue Keppra. - Diabetes. Continue Levemir and NovoLog per mild algorithm sliding scale. - Anemia of chronic kidney disease. - Acute on chronic encephalopathy. Awaits fdc facility placement Further recommendations based on clinical course. Plan of care discussed with Dr. Godinez. Subjective 24 Hr Interval Summary Free Text/Dictation Resting in bed, no acute distress noted. Remains afebrile. Pending placement some insurance issues discussed with the case management. Discussed with the staff Exam/Review of Systems Vital Signs Vitals Vital Signs Date Time Temp Pulse Resp B/P Pulse Ox O2 Delivery O2 Flow Rate FiO2 09/20/16 09:00 5.0 09/20/16 07:28 98.3 91 16 136/63 98 09/20/16 02:07 28 09/19/16 19:33 Aerosol Intake and Output 09/19/16 09/19/16 09/20/16 15:00 23:00 07:00 Intake Total 700 ml 730 ml Output Total 3000 ml Balance -2300 ml 730 ml Exam Constitutional: alert, non-verbal, well developed Respiratory: diminished breath sounds Cardiovascular: nl pulses, regular rate and rhythm Gastrointestinal: non-tender, other (gt intact), soft Musculoskeletal: muscle weakness Extremities: normal pulses Neurological: confused Lymph: nontender Results Result Diagram: 09/20/1652009/20/16520 Results 24 hrs Laboratory Tests Test 09/19/16 17:10 09/19/16 20:29 09/20/16 00:31 09/20/16 00:56 Bedside Glucose 144 127 68 L 132 Test 09/20/16 01:13 09/20/16 05:21 09/20/16 06:28 09/20/16 06:50 Bedside Glucose 112 62 L 108 White Blood Count 4.9 # Red Blood Count 3.12 L Hemoglobin 9.1 L Hematocrit 28.7 L Mean Corpuscular Volume 92.0 Mean Corpuscular Hemoglobin 29.2 Mean Corpuscular Hemoglobin Concent 31.7 L Red Cell Distribution Width 15.9 H Platelet Count 380 Mean Platelet Volume 9.8 Neutrophils % 62.7 Lymphocytes % 19.8 Monocytes % 9.3 Eosinophils % 6.6 Basophils % 0.8 Nucleated Red Blood Cells % 0.0 Neutrophils # 3.0 Lymphocytes # 1.0 Monocytes # 0.5 Eosinophils # 0.3 Basophils # 0.0 Nucleated Red Blood Cells # 0.0 Sodium Level 144 Potassium Level 3.5 Chloride Level 101 Carbon Dioxide Level 30 Anion Gap 17 H Blood Urea Nitrogen 44 #H Creatinine 3.21 #H Glucose Level 70 Calcium Level 9.9 Test 09/20/16 07:11 09/20/16 11:46 Bedside Glucose 89 119 Medications Medications Current Medications Amlodipine Besylate (Norvasc) 5 mg DAILY GTB Last administered on 09/20/16 08: 57; Admin Dose 5 MG; Start 08/30/16 at 09:00 Clonidine (Catapres) 0.1 mg DAILY PRN GTB ELEVATED SYSTOLIC BP; Start 08/29/16 at 23:00 Doxazosin Mesylate (Cardura) 2 mg QHS GTB Last administered on 09/19/16 20:42 ; Admin Dose 2 MG; Start 08/30/16 at 21:00 Folic Acid (Folic Acid) 1 mg DAILY GTB Last administered on 09/20/16 08:58; Admin Dose 1 MG; Start 08/30/16 at 09:00 Hydralazine HCl (Apresoline) 50 mg Q8 GTB Last administered on 09/20/16 05:32 ; Admin Dose 50 MG; Start 08/30/16 at 06:00 Levetiracetam (Keppra Liquid) 500 mg BID GTB Last administered on 09/20/16 08: 57; Admin Dose 500 MG; Start 08/30/16 at 09:00 Metoprolol Tartrate (Lopressor) 25 mg BID GTB Last administered on 09/20/16 08 :58; Admin Dose 25 MG; Start 08/30/16 at 09:00 Multivit/Ca Carb/ B Cmplx/FA/Prenat (Leah-Juan Jose) 1 tab DAILY GTB Last administered on 09/20/16 08:57; Admin Dose 1 TAB; Start 08/30/16 at 09:00 Ondansetron HCl (Zofran Tab) 4 mg Q6H PRN GTB NAUSEA AND/OR VOMITING; Start at 23:00 Senna (Senokot) 1 tab DAILY GTB Last administered on 09/20/16 08:57; Admin Dose 1 TAB; Start 08/30/16 at 09:00 Zolpidem Tartrate (Ambien) 5 mg QHS PRN GTB INSOMNIA; Start 08/29/16 at 23:00 Lansoprazole (Prevacid) 30 mg DAILY@06 GTB Last administered on 09/20/16 05:31 ; Admin Dose 30 MG; Start 08/30/16 at 06:00 Acetaminophen (Tylenol Liquid) 650 mg Q4H PRN GTB PAIN AND OR ELEVATED TEMP Last administered on 09/13/16 09:35; Admin Dose 650 MG; Start 08/29/16 at 23:00 Insulin Aspart (Novolog Insulin Pen) NOVOLOG *MILD* ALGORI... Q6 SC Last administered on 09/19/16 17:16; Admin Dose 1 UNIT; Start 08/30/16 at 00:00 Miscellaneous Information 1 ea NOTE XX ; Start 08/31/16 at 07:00 Glucose (Glutose) 15 gm Q15M PRN PO DECREASED GLUCOSE; Start 08/31/16 at 07:00 Glucose (Glutose) 22.5 gm Q15M PRN PO DECREASED GLUCOSE; Start 08/31/16 at 07: 00 Dextrose (D50w Syringe) 25 ml Q15M PRN IV DECREASED GLUCOSE Last administered on 09/20/16 06:33; Admin Dose 25 ML; Start 08/31/16 at 07:00 Dextrose (D50w Syringe) 50 ml Q15M PRN IV DECREASED GLUCOSE; Start 08/31/16 at 07:00 Glucagon (Glucagen) 1 mg Q15M PRN IM DECREASED GLUCOSE; Start 08/31/16 at 07:00 Glucose (Glutose) 15 gm Q15M PRN BUCCAL DECREASED GLUCOSE; Start 08/31/16 at 07 :00 Bacitracin/ Polymyxin B Sulfate 1 applic 1 applic BID BOTH EYES Last administered on 09/20/16 08:58; Admin Dose 1 APPLIC; Start 09/08/16 at 12:00 Meropenem (Merrem 500 Mg/ 100 ml (Pmx)) 100 ml @ 200 mls/hr Q24H IVPB Last administered on 09/19/16 20:10; Admin Dose 200 MLS/HR; Start 09/13/16 at 20:00 Insulin Detemir (Levemir) 9 unit HS SC ; Start 09/20/16 at 21:00 CANDY JUAREZ September 20, 2016 12:48
--- NOTE | 2016-09-20 18:09 | CONS ---
Date/Time of Note Date/Time of Note DATE: 09/20/16 TIME: 18:07 Assessment/Plan Assessment/Plan Chief Complaint/Hosp Course - sepsis due to HCAP; procalcitonin 0.93 - HCAP due to pseudomonas per resp cx on 08/29/16 & 09/13/16 (now intermediate sensitivity to Cefepime) - Chronic respiratory failure with trach - G tube dependent - h/o intracranial bleed s/p craniotomy - ESRD on HD - hyponatremia - improved - T2DM - Hgb A1c 4.8% 08/08/16 per SNF records - HTN associated with DM - anemia of CKD - thrombocytosis - BPH - Hx prostate CA per SNF records ([facility]) - acute on chronic encephalopathy - MRI brain 09/12/16 showed no acute infarct; improving - fever due to persistent pseudomonas -improving - elevated 1, 2-Bjco-L-glucan Note: Pt took Cefepime (08/29/16-09/13/16), Caspofungin (09/13/16-09/16/16) and Meropenem (09/13/16-09/20/16) recommendations: - Finish course of renally dosed meropenem (09/13/2016-) today to complete an 8 day course for HCAP. - DC planning in progress Management d/w CALE Rivera and Dr. Burleson Problems: Consultation Date/Type/Reason Admit Date/Time Aug 29, 2016 at 16:21 Initial Consult Date 08/31/16 Type of Consultation: Infectious Disease Referring Provider: CANDY JUAREZ 24 HR Interval Summary Free Text/Dictation No new issues. Awaiting SNF placement per d/w nursing staff. Subjective hx not possible: pt non-verbal Exam/Review of Systems Vital Signs Vitals Vital Signs Date Time Temp Pulse Resp B/P Pulse Ox O2 Delivery O2 Flow Rate FiO2 09/20/16 09:00 5.0 09/20/16 08:34 83 16 100 Aerosol 28 09/20/16 07:28 98.3 136/63 Intake and Output 09/19/16 09/19/16 09/20/16 15:00 23:00 07:00 Intake Total 700 ml 730 ml Output Total 3000 ml Balance -2300 ml 730 ml Exam Constitutional: alert, non-verbal, well developed Head: atraumatic, normocephalic Eyes: nl sclera Neck: other (trach in place) Respiratory: CTA anteriorly, other (Right chest wall HD catheter intact) Cardiovascular: regular rate and rhythm Gastrointestinal: bowel sounds (present), other (GT intact with tube feeds), soft Extremities: other (atrophy noted; RUE AVF +bruit/thrill) Neurological: confused, other (+tracking. No commands; flat affect) Skin: nl turgor, other (wounds- see nurse note and photos in chart for details) Results Result Diagram: 09/20/1652009/20/16520 Results 24 hrs Laboratory Tests Test 09/19/16 20:29 09/20/16 00:31 09/20/16 00:56 09/20/16 01:13 Bedside Glucose 127 68 L 132 112 Test 09/20/16 05:21 09/20/16 06:28 09/20/16 06:50 09/20/16 07:11 White Blood Count 4.9 # Red Blood Count 3.12 L Hemoglobin 9.1 L Hematocrit 28.7 L Mean Corpuscular Volume 92.0 Mean Corpuscular Hemoglobin 29.2 Mean Corpuscular Hemoglobin Concent 31.7 L Red Cell Distribution Width 15.9 H Platelet Count 380 Mean Platelet Volume 9.8 Neutrophils % 62.7 Lymphocytes % 19.8 Monocytes % 9.3 Eosinophils % 6.6 Basophils % 0.8 Nucleated Red Blood Cells % 0.0 Neutrophils # 3.0 Lymphocytes # 1.0 Monocytes # 0.5 Eosinophils # 0.3 Basophils # 0.0 Nucleated Red Blood Cells # 0.0 Sodium Level 144 Potassium Level 3.5 Chloride Level 101 Carbon Dioxide Level 30 Anion Gap 17 H Blood Urea Nitrogen 44 #H Creatinine 3.21 #H Glucose Level 70 Calcium Level 9.9 Bedside Glucose 62 L 108 89 Test 09/20/16 11:46 09/20/16 17:59 Bedside Glucose 119 113 Medications Medications Current Medications Amlodipine Besylate (Norvasc) 5 mg DAILY GTB Last administered on 09/20/16t 08: 57; Admin Dose 5 MG; Start 08/30/16 at 09:00 Clonidine (Catapres) 0.1 mg DAILY PRN GTB ELEVATED SYSTOLIC BP; Start 08/29/16 at 23:00 Doxazosin Mesylate (Cardura) 2 mg QHS GTB Last administered on 09/19/16 20:42 ; Admin Dose 2 MG; Start 08/30/16 at 21:00 Folic Acid (Folic Acid) 1 mg DAILY GTB Last administered on 09/20/16 08:58; Admin Dose 1 MG; Start 08/30/16 at 09:00 Hydralazine HCl (Apresoline) 50 mg Q8 GTB Last administered on 09/20/16 13:23 ; Admin Dose 50 MG; Start 08/30/16 at 06:00 Levetiracetam (Keppra Liquid) 500 mg BID GTB Last administered on 09/20/16 08: 57; Admin Dose 500 MG; Start 08/30/16 at 09:00 Metoprolol Tartrate (Lopressor) 25 mg BID GTB Last administered on 09/20/16 08 :58; Admin Dose 25 MG; Start 08/30/16 at 09:00 Multivit/Ca Carb/ B Cmplx/FA/Prenat (Leah-Juan Jose) 1 tab DAILY GTB Last administered on 09/20/16 08:57; Admin Dose 1 TAB; Start 08/30/16 at 09:00 Ondansetron HCl (Zofran Tab) 4 mg Q6H PRN GTB NAUSEA AND/OR VOMITING; Start at 23:00 Senna (Senokot) 1 tab DAILY GTB Last administered on 09/20/16 08:57; Admin Dose 1 TAB; Start 08/30/16 at 09:00 Zolpidem Tartrate (Ambien) 5 mg QHS PRN GTB INSOMNIA; Start 08/29/16 at 23:00 Lansoprazole (Prevacid) 30 mg DAILY@06 GTB Last administered on 09/20/16 05:31 ; Admin Dose 30 MG; Start 08/30/16 at 06:00 Acetaminophen (Tylenol Liquid) 650 mg Q4H PRN GTB PAIN AND OR ELEVATED TEMP Last administered on 09/13/16 09:35; Admin Dose 650 MG; Start 08/29/16 at 23:00 Insulin Aspart (Novolog Insulin Pen) NOVOLOG *MILD* ALGORI... Q6 SC Last administered on 09/19/16 17:16; Admin Dose 1 UNIT; Start 08/30/16 at 00:00 Miscellaneous Information 1 ea NOTE XX ; Start 08/31/16 at 07:00 Glucose (Glutose) 15 gm Q15M PRN PO DECREASED GLUCOSE; Start 08/31/16 at 07:00 Glucose (Glutose) 22.5 gm Q15M PRN PO DECREASED GLUCOSE; Start 08/31/16 at 07: 00 Dextrose (D50w Syringe) 25 ml Q15M PRN IV DECREASED GLUCOSE Last administered on 09/20/16 06:33; Admin Dose 25 ML; Start 08/31/16 at 07:00 Dextrose (D50w Syringe) 50 ml Q15M PRN IV DECREASED GLUCOSE; Start 08/31/16 at 07:00 Glucagon (Glucagen) 1 mg Q15M PRN IM DECREASED GLUCOSE; Start 08/31/16 at 07:00 Glucose (Glutose) 15 gm Q15M PRN BUCCAL DECREASED GLUCOSE; Start 08/31/16 at 07 :00 Bacitracin/ Polymyxin B Sulfate 1 applic 1 applic BID BOTH EYES Last administered on 09/20/16 08:58; Admin Dose 1 APPLIC; Start 09/08/16 at 12:00 Meropenem (Merrem 500 Mg/ 100 ml (Pmx)) 100 ml @ 200 mls/hr Q24H IVPB Last administered on 09/19/16 20:10; Admin Dose 200 MLS/HR; Start 09/13/16 at 20:00 Insulin Detemir (Levemir) 9 unit HS SC ; Start 09/20/16 at 21:00 NOVA HACKETT NP September 20, 2016 18:09
[2016-09-20] MEDS: MEROPENEM 500 MG/100 ML (PMX) 100 ML IVPB SCH (19:52)
[2016-09-20 20:00] VITALS: BP 128/61; RESP 18
[2016-09-20] MEDS: DOXAZOSIN 2 MG TAB GTB SCH (20:38)
[2016-09-20] MEDS: INSULIN DETEMIR [LEVEMIR] 3ML CART SC SCH (20:42)
[2016-09-20 22:20] VITALS: BP 126/79
[2016-09-21] VITALS (11 sets, daily range): BP systolic 102–141; BP diastolic 53–79; PULSE 82–88; RESP 18–22
[2016-09-21] MEDS: LANSOPRAZOLE 30 MG CAP GTB SCH (05:31)
[2016-09-21] MEDS: INSULIN ASPART [NOVOLOG] 3 ML PEN SC SCH ×3 (05:31→17:29)
[2016-09-21 06:05] LABS: ADD SCAN DIFF NO
[2016-09-21 06:11] LABS: BASOPHILS % 0.5 % (0.0-2.0); EOSINOPHILS # 0.5 10^3/ul (0.0-0.5); EOSINOPHILS % 8.6 % (0.0-7.0); HEMATOCRIT 28.5 % (42.0-52.0); HEMOGLOBIN 8.7 g/dl (14.0-18.0); LYMPHOCYTES # 1.1 10^3/ul (0.8-2.9); LYMPHOCYTES % 18.1 % (15.0-51.0); MEAN CORPUSCULAR HEMOGLOBIN 28.3 pg (29.0-33.0); MEAN CORPUSCULAR HGB CONC 30.5 g/dl (32.0-37.0); MEAN CORPUSCULAR VOLUME 92.8 fl (82.0-101.0); MEAN PLATELET VOLUME 9.7 fl (7.4-10.4); MONOCYTE # 0.5 10^3/ul (0.3-0.9); NEUTROPHIL # 3.7 10^3/ul (1.6-7.5); NEUTROPHILS % 63.3 % (39.0-77.0); PLATELET COUNT 401 10^3/UL (140-415); RED BLOOD COUNT 3.07 10^6/ul (4.70-6.10); RED CELL DISTRIBUTION WIDTH 16.4 % (11.5-14.5); WHITE BLOOD COUNT 5.9 10^3/ul (4.8-10.8)
[2016-09-21 06:31] LABS: POTASSIUM 3.8 mmol/L (3.5-5.1)
[2016-09-21 06:34] LABS: CREATININE 4.28 mg/dl (0.61-1.24)
[2016-09-21 06:35] LABS: CALCIUM 10.2 mg/dl (8.4-10.2)
[2016-09-21] MEDS: LEVALBUTEROL (NEB) 0.63 MG/3 ML AMP NEB SCH ×4 (08:29→19:39)
[2016-09-21] MEDS: SEVELAMER CARBONATE 0.8 GM PKT GTB SCH ×3 (08:42→17:30)
[2016-09-21] MEDS: MULTIVIT/CA CARB/B CMPLX/FA TAB GTB SCH (08:43)
[2016-09-21] MEDS: SENNA TAB GTB SCH (08:43)
[2016-09-21] MEDS: LEVETIRACETAM (100 MG/ML) 5ML CUP GTB SCH ×2 (08:43→20:39)
[2016-09-21] MEDS: METOPROLOL 25 MG TAB GTB SCH ×2 (08:45→20:39)
[2016-09-21] MEDS: AMLODIPINE 5 MG TAB GTB SCH (08:46)
[2016-09-21] MEDS: FOLIC ACID 1 MG TAB GTB SCH (08:48)
[2016-09-21] MEDS: BACITRACIN/POLYMYX 3.5 GM OPH OINT BOTH EYES SCH ×2 (08:53→20:38)
--- NOTE | 2016-09-21 09:13 | PN ---
DATE: 09/21/2016 SUBJECTIVE: The patient is stable. No acute events overnight. No fevers, chills, nausea, or vomit ing. Patient is pending hemodialysis today. OBJECTIVE: VITAL SIGNS: Blood pressure 122/60, respirations 22, pulse 84, temperature 97.3. HEENT: Head is normocephalic. NECK: Supple. HEART: Regular rate. LUNGS: Showed diminished breath sounds at the base. ABDOMEN: Soft, nontender to palpation. No rebound or guarding. EXTREMITIES: Negative for clubbing or cyanosis. No edema. DERMATOLOGIC: No rashes. MUSCULOSKELETAL: Have no joint effusion. NEUROLOGIC: No change in exam. MEDICATIONS: The patient's medications have been reviewed. LABORATORY DATA: Shows sodium 138, potassium 3.8, chloride 98, BUN 69, creatinine 4.28. White coun t 5.9, hemoglobin 9.7, hematocrit 28.5, platelet count is 401. ASSESSMENT AND PLAN: 1. End-stage renal disease. The patient is scheduled for dialysis today for 3 hours, 3K bath, calc ium 2.5. Will ultrafiltrate as tolerated. 2. Anemia. Continue to monitor hemoglobin and hematocrit levels. Continue Epogen. 3. Mineral bone disorder. Continue to monitor calcium and phosphorus levels. 4. Hypertension. Continue the current blood pressure regimen. 5. Sepsis secondary to pneumonia. The patient is completing an antibiotic course. 6. Chronic respiratory failure. Status post tracheostomy. Currently stable. 7. Diabetes. Continue Accu-Cheks and insulin sliding scale. 8. Chronic encephalopathy. Continue to monitor. 9. Seizure disorder. Continue medical management. 10. History of intracranial bleed. Dictated By: MARYURI WALLER/FRANCES Conf#: [id number] DID#: [id number]
--- NOTE | 2016-09-21 16:37 | PN ---
Date/Time of Note Date/Time of Note DATE: 09/21/16 TIME: 16:37 Assessment/Plan VTE Prophylaxis VTE Prophylaxis Intervention: SCD's Lines/Catheters IV [facility] PERMACATH Urinary Cath still in place: No Assessment/Plan Chief Complaint/Hosp Course Assessment/Plan - Acute on chronic encephalopathy, MRI of the brain is negative for any acute stroke. - Sepsis secondary to HCAP, resolving. continue antibiotics per ID. Dr. Benjy lang is following in infection disease consultation. - HCAP. Sputum cultures positive for Pseudomonas. Continue antibiotics per ID. - Chronic respiratory failure with tracheostomy, currently on T-piece. Dr. Freitas is following in pulmonology consultation - End-stage renal disease on hemodialysis. Continue hemodialysis per nephrology. Dr. Sales is following in nephrology consultation. - Hypertension. Continue metoprolol and hydralazine. - History of nontraumatic intracranial bleed, status post craniotomy. - Possible seizure disorder. Continue Keppra. - Diabetes. Continue Levemir and NovoLog per mild algorithm sliding scale. - Anemia of chronic kidney disease. - Acute on chronic encephalopathy. Awaits assisted facility placement Further recommendations based on clinical course. Plan of care discussed with Dr. Godinez. Problems: Subjective 24 Hr Interval Summary Free Text/Dictation Patient status post hemodialysis today, awake, remains afebrile. Exam/Review of Systems Vital Signs Vitals Vital Signs Date Time Temp Pulse Resp B/P Pulse Ox O2 Delivery O2 Flow Rate FiO2 09/21/16 16:28 82 16 99 Aerosol 5.0 28 T Tube 09/21/16 07:33 97.3 122/60 Intake and Output 09/20/16 09/20/16 09/21/16 15:00 23:00 07:00 Intake Total 760 ml 720 ml Output Total 4 ml 0 ml Balance 756 ml 720 ml Exam Constitutional: lethargic Psych: no complaints Head: atraumatic, normocephalic Eyes: nl conjunctiva ENMT: nl external ears & nose Neck: other (Tracheostomy), supple Respiratory: slightly diminished breath sounds, Cardiovascular: regular rate and rhythm Gastrointestinal: non-tender, other (G-tube), soft Musculoskeletal: nl extremities to inspection Extremities: normal pulses Neurological: confused Additional Comments Right chest permacath Results Result Diagram: 5/19/17 0518 5/19/17 0518 Results 24 hrs Laboratory Tests Test 09/20/16 17:59 09/20/16 20:41 09/20/16 23:50 09/21/16 05:18 Bedside Glucose 113 126 109 White Blood Count 5.9 # Red Blood Count 3.07 L Hemoglobin 8.7 L Hematocrit 28.5 L Mean Corpuscular Volume 92.8 Mean Corpuscular Hemoglobin 28.3 L Mean Corpuscular Hemoglobin Concent 30.5 L Red Cell Distribution Width 16.4 H Platelet Count 401 Mean Platelet Volume 9.7 Neutrophils % 63.3 Lymphocytes % 18.1 Monocytes % 9.0 Eosinophils % 8.6 H Basophils % 0.5 Nucleated Red Blood Cells % 0.0 Neutrophils # 3.7 Lymphocytes # 1.1 Monocytes # 0.5 Eosinophils # 0.5 Basophils # 0.0 Nucleated Red Blood Cells # 0.0 Sodium Level 138 Potassium Level 3.8 Chloride Level 98 Carbon Dioxide Level 29 Anion Gap 15 Blood Urea Nitrogen 69 H Creatinine 4.28 #H Glucose Level 71 Calcium Level 10.2 Test 09/21/16 05:29 09/21/16 11:54 Bedside Glucose 90 86 Medications Medications Current Medications Amlodipine Besylate (Norvasc) 5 mg DAILY GTB Last administered on 09/20/16 08: 57; Admin Dose 5 MG; Start 08/30/16 at 09:00 Clonidine (Catapres) 0.1 mg DAILY PRN GTB ELEVATED SYSTOLIC BP; Start 08/29/16 at 23:00 Doxazosin Mesylate (Cardura) 2 mg QHS GTB Last administered on 09/20/16 20:38 ; Admin Dose 2 MG; Start 08/30/16 at 21:00 Folic Acid (Folic Acid) 1 mg DAILY GTB Last administered on 09/21/16 08:48; Admin Dose 1 MG; Start 08/30/16 at 09:00 Hydralazine HCl (Apresoline) 50 mg Q8 GTB Last administered on 09/21/16 05:31 ; Admin Dose 50 MG; Start 08/30/16 at 06:00 Levetiracetam (Keppra Liquid) 500 mg BID GTB Last administered on 09/21/16 08: 43; Admin Dose 500 MG; Start 08/30/16 at 09:00 Metoprolol Tartrate (Lopressor) 25 mg BID GTB Last administered on 09/20/16 20 :38; Admin Dose 25 MG; Start 08/30/16 at 09:00 Multivit/Ca Carb/ B Cmplx/FA/Prenat (Leah-Juan Jose) 1 tab DAILY GTB Last administered on 09/21/16 08:43; Admin Dose 1 TAB; Start 08/30/16 at 09:00 Ondansetron HCl (Zofran Tab) 4 mg Q6H PRN GTB NAUSEA AND/OR VOMITING; Start at 23:00 Senna (Senokot) 1 tab DAILY GTB Last administered on 09/21/16 08:43; Admin Dose 1 TAB; Start 08/30/16 at 09:00 Zolpidem Tartrate (Ambien) 5 mg QHS PRN GTB INSOMNIA; Start 08/29/16 at 23:00 Lansoprazole (Prevacid) 30 mg DAILY@06 GTB Last administered on 09/21/16 05:31 ; Admin Dose 30 MG; Start 08/30/16 at 06:00 Acetaminophen (Tylenol Liquid) 650 mg Q4H PRN GTB PAIN AND OR ELEVATED TEMP Last administered on 09/13/16 09:35; Admin Dose 650 MG; Start 08/29/16 at 23:00 Insulin Aspart (Novolog Insulin Pen) NOVOLOG *MILD* ALGORI... Q6 SC Last administered on 09/19/16 17:16; Admin Dose 1 UNIT; Start 08/30/16 at 00:00 Miscellaneous Information 1 ea NOTE XX ; Start 08/31/16 at 07:00 Glucose (Glutose) 15 gm Q15M PRN PO DECREASED GLUCOSE; Start 08/31/16 at 07:00 Glucose (Glutose) 22.5 gm Q15M PRN PO DECREASED GLUCOSE; Start 08/31/16 at 07: 00 Dextrose (D50w Syringe) 25 ml Q15M PRN IV DECREASED GLUCOSE Last administered on 09/20/16 06:33; Admin Dose 25 ML; Start 08/31/16 at 07:00 Dextrose (D50w Syringe) 50 ml Q15M PRN IV DECREASED GLUCOSE; Start 08/31/16 at 07:00 Glucagon (Glucagen) 1 mg Q15M PRN IM DECREASED GLUCOSE; Start 08/31/16 at 07:00 Glucose (Glutose) 15 gm Q15M PRN BUCCAL DECREASED GLUCOSE; Start 08/31/16 at 07 :00 Bacitracin/ Polymyxin B Sulfate (Ak-Poly-Anais Oph Oint) 1 applic BID BOTH EYES Last administered on 09/21/16 08:53; Admin Dose 1 APPLIC; Start 09/08/16 at 12: 00 Insulin Detemir (Levemir) 9 unit HS SC Last administered on 09/20/16 20:42; Admin Dose 9 UNIT; Start 09/20/16 at 21:00 NOELLE JIMENEZ September 21, 2016 16:37
--- NOTE | 2016-09-21 18:22 | CONS ---
Date/Time of Note Date/Time of Note DATE: 09/21/16 TIME: 18:22 Assessment/Plan Assessment/Plan Chief Complaint/Hosp Course - sepsis due to HCAP; procalcitonin 0.93 - HCAP due to pseudomonas per resp cx on 08/29/16 & 09/13/16 (now intermediate sensitivity to Cefepime) - Chronic respiratory failure with trach - G tube dependent - h/o intracranial bleed s/p craniotomy - ESRD on HD - hyponatremia - improved - T2DM - Hgb A1c 4.8% 08/08/16 per SNF records - HTN associated with DM - anemia of CKD - thrombocytosis - BPH - Hx prostate CA per SNF records ([facility]) - acute on chronic encephalopathy - MRI brain 09/12/16 showed no acute infarct; improving - fever due to persistent pseudomonas -improving - elevated 1, 7-Rdin-W-glucan Note: Pt took Cefepime (08/29/16-09/13/16), Caspofungin (09/13/16-09/16/16) and Meropenem (09/13/16-09/20/16) recommendations: - Monitor off abx - DC planning in progress; awaiting SNF placement Management d/w [facility] and Dr. Burleson Problems: Consultation Date/Type/Reason Admit Date/Time Aug 29, 2016 at 16:21 Initial Consult Date 08/31/16 Type of Consultation: Infectious Disease Referring Provider: CANDY JUAREZ 24 HR Interval Summary Free Text/Dictation Still waiting for placement per [facility]. Unable to perform ROS d/t chronic encephalopathy. Subjective hx not possible: pt non-verbal Exam/Review of Systems Vital Signs Vitals Vital Signs Date Time Temp Pulse Resp B/P Pulse Ox O2 Delivery O2 Flow Rate FiO2 09/21/16 16:28 82 16 99 Aerosol 5.0 28 T Tube 09/21/16 07:33 97.3 122/60 Intake and Output 09/20/16 09/20/16 09/21/16 15:00 23:00 07:00 Intake Total 760 ml 720 ml Output Total 4 ml 0 ml Balance 756 ml 720 ml Exam Constitutional: alert, non-verbal, well developed Head: atraumatic, normocephalic Eyes: nl sclera Neck: other (trach in place on T-piece) Respiratory: CTA anteriorly, other (Right chest wall HD catheter intact) Cardiovascular: regular rate and rhythm Gastrointestinal: bowel sounds (present), other (GT intact with tube feeds), soft Extremities: other (atrophy noted; RUE AVF +bruit/thrill; Left hand HL with no e/o infection) Neurological: confused, other (+tracking. No commands; flat affect) Skin: nl turgor, other (wounds- see nurse note and photos in chart for details) Results Result Diagram: 09/21/1651709/21/16517 Results 24 hrs Laboratory Tests Test 09/20/16 20:41 09/20/16 23:50 09/21/16 05:18 09/21/16 05:29 Bedside Glucose 126 109 90 White Blood Count 5.9 # Red Blood Count 3.07 L Hemoglobin 8.7 L Hematocrit 28.5 L Mean Corpuscular Volume 92.8 Mean Corpuscular Hemoglobin 28.3 L Mean Corpuscular Hemoglobin Concent 30.5 L Red Cell Distribution Width 16.4 H Platelet Count 401 Mean Platelet Volume 9.7 Neutrophils % 63.3 Lymphocytes % 18.1 Monocytes % 9.0 Eosinophils % 8.6 H Basophils % 0.5 Nucleated Red Blood Cells % 0.0 Neutrophils # 3.7 Lymphocytes # 1.1 Monocytes # 0.5 Eosinophils # 0.5 Basophils # 0.0 Nucleated Red Blood Cells # 0.0 Sodium Level 138 Potassium Level 3.8 Chloride Level 98 Carbon Dioxide Level 29 Anion Gap 15 Blood Urea Nitrogen 69 H Creatinine 4.28 #H Glucose Level 71 Calcium Level 10.2 Test 09/21/16 11:54 09/21/16 17:25 Bedside Glucose 86 146 Medications Medications Current Medications Amlodipine Besylate (Norvasc) 5 mg DAILY GTB Last administered on 09/20/16 08: 57; Admin Dose 5 MG; Start 08/30/16 at 09:00 Clonidine (Catapres) 0.1 mg DAILY PRN GTB ELEVATED SYSTOLIC BP; Start 08/29/16 at 23:00 Doxazosin Mesylate (Cardura) 2 mg QHS GTB Last administered on 09/20/16 20:38 ; Admin Dose 2 MG; Start 08/30/16 at 21:00 Folic Acid (Folic Acid) 1 mg DAILY GTB Last administered on 09/21/16 08:48; Admin Dose 1 MG; Start 08/30/16 at 09:00 Hydralazine HCl (Apresoline) 50 mg Q8 GTB Last administered on 09/21/16 05:31 ; Admin Dose 50 MG; Start 08/30/16 at 06:00 Levetiracetam (Keppra Liquid) 500 mg BID GTB Last administered on 09/21/16 08: 43; Admin Dose 500 MG; Start 08/30/16 at 09:00 Metoprolol Tartrate (Lopressor) 25 mg BID GTB Last administered on 09/20/16 20 :38; Admin Dose 25 MG; Start 08/30/16 at 09:00 Multivit/Ca Carb/ B Cmplx/FA/Prenat (Leah-Juan Jose) 1 tab DAILY GTB Last administered on 09/21/16 08:43; Admin Dose 1 TAB; Start 08/30/16 at 09:00 Ondansetron HCl (Zofran Tab) 4 mg Q6H PRN GTB NAUSEA AND/OR VOMITING; Start at 23:00 Senna (Senokot) 1 tab DAILY GTB Last administered on 09/21/16 08:43; Admin Dose 1 TAB; Start 08/30/16 at 09:00 Zolpidem Tartrate (Ambien) 5 mg QHS PRN GTB INSOMNIA; Start 08/29/16 at 23:00 Lansoprazole (Prevacid) 30 mg DAILY@06 GTB Last administered on 09/21/16 05:31 ; Admin Dose 30 MG; Start 08/30/16 at 06:00 Acetaminophen (Tylenol Liquid) 650 mg Q4H PRN GTB PAIN AND OR ELEVATED TEMP Last administered on 09/13/16 09:35; Admin Dose 650 MG; Start 08/29/16 at 23:00 Insulin Aspart (Novolog Insulin Pen) NOVOLOG *MILD* ALGORI... Q6 SC Last administered on 09/21/16 17:29; Admin Dose 1 UNIT; Start 08/30/16 at 00:00 Miscellaneous Information 1 ea NOTE XX ; Start 08/31/16 at 07:00 Glucose (Glutose) 15 gm Q15M PRN PO DECREASED GLUCOSE; Start 08/31/16 at 07:00 Glucose (Glutose) 22.5 gm Q15M PRN PO DECREASED GLUCOSE; Start 08/31/16 at 07: 00 Dextrose (D50w Syringe) 25 ml Q15M PRN IV DECREASED GLUCOSE Last administered on 09/20/16 06:33; Admin Dose 25 ML; Start 08/31/16 at 07:00 Dextrose (D50w Syringe) 50 ml Q15M PRN IV DECREASED GLUCOSE; Start 08/31/16 at 07:00 Glucagon (Glucagen) 1 mg Q15M PRN IM DECREASED GLUCOSE; Start 08/31/16 at 07:00 Glucose (Glutose) 15 gm Q15M PRN BUCCAL DECREASED GLUCOSE; Start 08/31/16 at 07 :00 Bacitracin/ Polymyxin B Sulfate (Ak-Poly-Anais Oph Oint) 1 applic BID BOTH EYES Last administered on 09/21/16 08:53; Admin Dose 1 APPLIC; Start 09/08/16 at 12: 00 Insulin Detemir (Levemir) 9 unit HS SC Last administered on 09/20/16 20:42; Admin Dose 9 UNIT; Start 09/20/16 at 21:00 NOVA HACKETT NP September 21, 2016 18:22
[2016-09-21] MEDS: DOXAZOSIN 2 MG TAB GTB SCH (20:38)
[2016-09-21] MEDS: INSULIN DETEMIR [LEVEMIR] 3ML CART SC SCH (20:42)
[2016-09-22 05:36] LABS: ADD SCAN DIFF NO
[2016-09-22 05:40] LABS: BASOPHILS % 0.8 % (0.0-2.0); EOSINOPHILS # 0.4 10^3/ul (0.0-0.5); EOSINOPHILS % 8.6 % (0.0-7.0); HEMATOCRIT 28.9 % (42.0-52.0); HEMOGLOBIN 8.7 g/dl (14.0-18.0); LYMPHOCYTES # 0.9 10^3/ul (0.8-2.9); LYMPHOCYTES % 19.8 % (15.0-51.0); MEAN CORPUSCULAR HEMOGLOBIN 28.5 pg (29.0-33.0); MEAN CORPUSCULAR HGB CONC 30.1 g/dl (32.0-37.0); MEAN CORPUSCULAR VOLUME 94.8 fl (82.0-101.0); MEAN PLATELET VOLUME 9.5 fl (7.4-10.4); MONOCYTE # 0.5 10^3/ul (0.3-0.9); MONOCYTES % 10.3 % (0.0-11.0); NEUTROPHIL # 2.8 10^3/ul (1.6-7.5); NEUTROPHILS % 59.9 % (39.0-77.0); PLATELET COUNT 377 10^3/UL (140-415); RED BLOOD COUNT 3.05 10^6/ul (4.70-6.10); RED CELL DISTRIBUTION WIDTH 16.9 % (11.5-14.5); WHITE BLOOD COUNT 4.7 10^3/ul (4.8-10.8)
[2016-09-22] MEDS: INSULIN ASPART [NOVOLOG] 3 ML PEN SC SCH ×4 (06:00→17:47)
[2016-09-22 06:01] LABS: CALCIUM 10.3 mg/dl (8.4-10.2); CREATININE 2.98 mg/dl (0.61-1.24)
[2016-09-22] MEDS: LANSOPRAZOLE 30 MG CAP GTB SCH (06:02)
[2016-09-22 06:09] VITALS: BP 137/61
[2016-09-22 07:32] VITALS: BP 122/60; RESP 18
[2016-09-22] MEDS: LEVALBUTEROL (NEB) 0.63 MG/3 ML AMP NEB SCH ×4 (07:35→20:35)
[2016-09-22] MEDS: FOLIC ACID 1 MG TAB GTB SCH (08:43)
[2016-09-22] MEDS: MULTIVIT/CA CARB/B CMPLX/FA TAB GTB SCH (08:43)
[2016-09-22] MEDS: SENNA TAB GTB SCH (08:43)
[2016-09-22] MEDS: SEVELAMER CARBONATE 0.8 GM PKT GTB SCH ×3 (08:44→17:35)
[2016-09-22] MEDS: AMLODIPINE 5 MG TAB GTB SCH (08:45)
[2016-09-22] MEDS: LEVETIRACETAM (100 MG/ML) 5ML CUP GTB SCH ×2 (08:46→21:51)
[2016-09-22] MEDS: METOPROLOL 25 MG TAB GTB SCH ×2 (08:46→21:00)
[2016-09-22] MEDS: BACITRACIN/POLYMYX 3.5 GM OPH OINT BOTH EYES SCH ×2 (08:51→21:48)
--- NOTE | 2016-09-22 10:14 | CONS ---
Date/Time of Note Date/Time of Note DATE: 09/22/16 TIME: 10:13 Consult Date/Type/Reason Admit Date/Time Aug 29, 2016 at 16:21 Initial Consult Date 08/31/16 Type of Consultation: neph Ordering Provider: CANDY JUAREZ The patient is stable. on hd yesterday without complication. poc reviewed with dr. fortune. No acute events overnight. No fevers, chills, nausea, or vomiting. OBJECTIVE: HEENT: Head is normocephalic. NECK: Supple. HEART: Regular rate. LUNGS: Showed diminished breath sounds at the base. ABDOMEN: Soft, nontender to palpation. No rebound or guarding. EXTREMITIES: Negative for clubbing, cyanosis or edema. DERMATOLOGIC: No rashes. MUSCULOSKELETAL: Have no joint effusion. NEUROLOGIC: No change in exam. MEDICATIONS: The patient's medications have been reviewed. LABORATORY DATA: Has been reviewed. Objective Vital Signs Date Time Temp Pulse Resp B/P Pulse Ox O2 Delivery O2 Flow Rate FiO2 09/22/16 07:39 82 16 100 Aerosol 5.0 28 T Tube 09/22/16 07:32 97.9 122/60 Intake and Output 09/21/16 09/21/16 09/22/16 15:00 23:00 07:00 Intake Total 500 ml 720 ml 730 ml Output Total 2500 ml 0 ml Balance -2000 ml 720 ml 730 ml Results/Medications Result Diagram: 09/22/16 0511 09/22/16 0511 Results 24 hrs Laboratory Tests Test 09/21/16 11:54 09/21/16 17:25 09/21/16 20:39 09/22/16 00:15 Bedside Glucose 86 146 114 137 Test 09/22/16 05:11 09/22/16 06:01 White Blood Count 4.7 #L Red Blood Count 3.05 L Hemoglobin 8.7 L Hematocrit 28.9 L Mean Corpuscular Volume 94.8 Mean Corpuscular Hemoglobin 28.5 L Mean Corpuscular Hemoglobin Concent 30.1 L Red Cell Distribution Width 16.9 H Platelet Count 377 Mean Platelet Volume 9.5 Neutrophils % 59.9 Lymphocytes % 19.8 Monocytes % 10.3 Eosinophils % 8.6 H Basophils % 0.8 Nucleated Red Blood Cells % 0.0 Neutrophils # 2.8 Lymphocytes # 0.9 Monocytes # 0.5 Eosinophils # 0.4 Basophils # 0.0 Nucleated Red Blood Cells # 0.0 Sodium Level 143 Potassium Level 4.0 Chloride Level 108 # Carbon Dioxide Level 29 Anion Gap 10 # Blood Urea Nitrogen 44 #H Creatinine 2.98 #H Glucose Level 100 Calcium Level 10.3 H Bedside Glucose 104 Medications Current Medications Amlodipine Besylate (Norvasc) 5 mg DAILY GTB Last administered on 09/22/16 08: 45; Admin Dose 5 MG; Start 08/30/16 at 09:00 Clonidine (Catapres) 0.1 mg DAILY PRN GTB ELEVATED SYSTOLIC BP; Start 08/29/16 at 23:00 Doxazosin Mesylate (Cardura) 2 mg QHS GTB Last administered on 09/21/16 20:38 ; Admin Dose 2 MG; Start 08/30/16 at 21:00 Folic Acid (Folic Acid) 1 mg DAILY GTB Last administered on 09/22/16 08:43; Admin Dose 1 MG; Start 08/30/16 at 09:00 Hydralazine HCl (Apresoline) 50 mg Q8 GTB Last administered on 09/22/16 06:02 ; Admin Dose 50 MG; Start 08/30/16 at 06:00 Levetiracetam (Keppra Liquid) 500 mg BID GTB Last administered on 09/22/16 08: 46; Admin Dose 500 MG; Start 08/30/16 at 09:00 Metoprolol Tartrate (Lopressor) 25 mg BID GTB Last administered on 09/22/16 08 :46; Admin Dose 25 MG; Start 08/30/16 at 09:00 Multivit/Ca Carb/ B Cmplx/FA/Prenat (Leah-Juan Jose) 1 tab DAILY GTB Last administered on 09/22/16 08:43; Admin Dose 1 TAB; Start 08/30/16 at 09:00 Ondansetron HCl (Zofran Tab) 4 mg Q6H PRN GTB NAUSEA AND/OR VOMITING; Start at 23:00 Senna (Senokot) 1 tab DAILY GTB Last administered on 09/22/16 08:43; Admin Dose 1 TAB; Start 08/30/16 at 09:00 Zolpidem Tartrate (Ambien) 5 mg QHS PRN GTB INSOMNIA; Start 08/29/16 at 23:00 Lansoprazole (Prevacid) 30 mg DAILY@06 GTB Last administered on 09/22/16 06:02 ; Admin Dose 30 MG; Start 08/30/16 at 06:00 Acetaminophen (Tylenol Liquid) 650 mg Q4H PRN GTB PAIN AND OR ELEVATED TEMP Last administered on 09/13/16 09:35; Admin Dose 650 MG; Start 08/29/16 at 23:00 Insulin Aspart (Novolog Insulin Pen) NOVOLOG *MILD* ALGORI... Q6 SC Last administered on 09/21/16 17:29; Admin Dose 1 UNIT; Start 08/30/16 at 00:00 Miscellaneous Information 1 ea NOTE XX ; Start 08/31/16 at 07:00 Glucose (Glutose) 15 gm Q15M PRN PO DECREASED GLUCOSE; Start 08/31/16 at 07:00 Glucose (Glutose) 22.5 gm Q15M PRN PO DECREASED GLUCOSE; Start 08/31/16 at 07: 00 Dextrose (D50w Syringe) 25 ml Q15M PRN IV DECREASED GLUCOSE Last administered on 09/20/16 06:33; Admin Dose 25 ML; Start 08/31/16 at 07:00 Dextrose (D50w Syringe) 50 ml Q15M PRN IV DECREASED GLUCOSE; Start 08/31/16 at 07:00 Glucagon (Glucagen) 1 mg Q15M PRN IM DECREASED GLUCOSE; Start 08/31/16 at 07:00 Glucose (Glutose) 15 gm Q15M PRN BUCCAL DECREASED GLUCOSE; Start 08/31/16 at 07 :00 Bacitracin/ Polymyxin B Sulfate (Ak-Poly-Anais Oph Oint) 1 applic BID BOTH EYES Last administered on 09/22/16 08:51; Admin Dose 1 APPLIC; Start 09/08/16 at 12: 00 Insulin Detemir (Levemir) 9 unit HS SC Last administered on 09/21/16 20:42; Admin Dose 9 UNIT; Start 09/20/16 at 21:00 Assessment/Plan Chief Complaint/Hosp Course 1. End-stage renal disease. The patient is scheduled for dialysis today for 3 hours, 3K bath, calcium 2.5. Will ultrafiltrate as tolerated. 2. Anemia. Continue to monitor hemoglobin and hematocrit levels. Continue Epogen. 3. Mineral bone disorder. Continue to monitor calcium and phosphorus levels. 4. Hypertension. Continue the current blood pressure regimen. 5. Sepsis secondary to pneumonia. The patient is completing an antibiotic course. 6. Chronic respiratory failure. Status post tracheostomy. Currently stable. 7. Diabetes. Continue Accu-Cheks and insulin sliding scale. 8. Chronic encephalopathy. Continue to monitor. 9. Seizure disorder. Continue medical management. 10. History of intracranial bleed. Problems: KIM PEARCE MD September 22, 2016 10:14
--- NOTE | 2016-09-22 11:22 | PN ---
Date/Time of Note Date/Time of Note DATE: 09/22/16 TIME: 11:20 Assessment/Plan VTE Prophylaxis VTE Prophylaxis Intervention: other Lines/Catheters IV [facility] PERMACATH Urinary Cath still in place: No Assessment/Plan Assessment/Plan - Acute on chronic encephalopathy, MRI of the brain is negative for any acute stroke. - Sepsis secondary to HCAP, resolving. continue antibiotics per ID. Dr. Benjy lang is following in infection disease consultation. - HCAP. Sputum cultures positive for Pseudomonas. Continue antibiotics per ID. - Chronic respiratory failure with tracheostomy, currently on T-piece. Dr. Freitas is following in pulmonology consultation - End-stage renal disease on hemodialysis. Continue hemodialysis per nephrology. Dr. Sales is following in nephrology consultation. - Hypertension. Continue metoprolol and hydralazine. - History of nontraumatic intracranial bleed, status post craniotomy. - Possible seizure disorder. Continue Keppra. - Diabetes. - glycemic control - Anemia of chronic kidney disease. - Acute on chronic encephalopathy. Awaits nursing home facility placement Further recommendations based on clinical course. Plan of care discussed with Dr. Godinez. Subjective 24 Hr Interval Summary Free Text/Dictation No acute distress noted, lying in bed, awake open eyes, trach intact, afebrile, hemodialysis yesterday 2 L removed, first and if transfer. Discussed with staff no new events reported overnight Subjective hx not possible: pt non-verbal Constitutional: requiring O2 Exam/Review of Systems Vital Signs Vitals Vital Signs Date Time Temp Pulse Resp B/P Pulse Ox O2 Delivery O2 Flow Rate FiO2 09/22/16 07:39 82 16 100 Aerosol 5.0 28 T Tube 09/22/16 07:32 97.9 122/60 Intake and Output 09/21/16 09/21/16 09/22/16 15:00 23:00 07:00 Intake Total 500 ml 720 ml 730 ml Output Total 2500 ml 0 ml Balance -2000 ml 720 ml 730 ml Exam Constitutional: alert, non-verbal Eyes: nl sclera ENMT: nl external ears & nose Neck: non-tender Respiratory: diminished breath sounds Cardiovascular: nl pulses Gastrointestinal: non-tender, other (G-tube intact), soft Musculoskeletal: nl extremities to inspection Extremities: normal pulses Neurological: confused Skin: other Lymph: nontender Results Result Diagram: 09/22/16 0511 09/22/16 0511 Results 24 hrs Laboratory Tests Test 09/21/16 11:54 09/21/16 17:25 09/21/16 20:39 09/22/16 00:15 Bedside Glucose 86 146 114 137 Test 09/22/16 05:11 09/22/16 06:01 White Blood Count 4.7 #L Red Blood Count 3.05 L Hemoglobin 8.7 L Hematocrit 28.9 L Mean Corpuscular Volume 94.8 Mean Corpuscular Hemoglobin 28.5 L Mean Corpuscular Hemoglobin Concent 30.1 L Red Cell Distribution Width 16.9 H Platelet Count 377 Mean Platelet Volume 9.5 Neutrophils % 59.9 Lymphocytes % 19.8 Monocytes % 10.3 Eosinophils % 8.6 H Basophils % 0.8 Nucleated Red Blood Cells % 0.0 Neutrophils # 2.8 Lymphocytes # 0.9 Monocytes # 0.5 Eosinophils # 0.4 Basophils # 0.0 Nucleated Red Blood Cells # 0.0 Sodium Level 143 Potassium Level 4.0 Chloride Level 108 # Carbon Dioxide Level 29 Anion Gap 10 # Blood Urea Nitrogen 44 #H Creatinine 2.98 #H Glucose Level 100 Calcium Level 10.3 H Bedside Glucose 104 Medications Medications Current Medications Amlodipine Besylate (Norvasc) 5 mg DAILY GTB Last administered on 09/22/16 08: 45; Admin Dose 5 MG; Start 08/30/16 at 09:00 Clonidine (Catapres) 0.1 mg DAILY PRN GTB ELEVATED SYSTOLIC BP; Start 08/29/16 at 23:00 Doxazosin Mesylate (Cardura) 2 mg QHS GTB Last administered on 09/21/16 20:38 ; Admin Dose 2 MG; Start 08/30/16 at 21:00 Folic Acid (Folic Acid) 1 mg DAILY GTB Last administered on 09/22/16 08:43; Admin Dose 1 MG; Start 08/30/16 at 09:00 Hydralazine HCl (Apresoline) 50 mg Q8 GTB Last administered on 09/22/16 06:02 ; Admin Dose 50 MG; Start 08/30/16 at 06:00 Levetiracetam (Keppra Liquid) 500 mg BID GTB Last administered on 09/22/16 08: 46; Admin Dose 500 MG; Start 08/30/16 at 09:00 Metoprolol Tartrate (Lopressor) 25 mg BID GTB Last administered on 09/22/16 08 :46; Admin Dose 25 MG; Start 08/30/16 at 09:00 Multivit/Ca Carb/ B Cmplx/FA/Prenat (Leah-Juan Jose) 1 tab DAILY GTB Last administered on 09/22/16 08:43; Admin Dose 1 TAB; Start 08/30/16 at 09:00 Ondansetron HCl (Zofran Tab) 4 mg Q6H PRN GTB NAUSEA AND/OR VOMITING; Start at 23:00 Senna (Senokot) 1 tab DAILY GTB Last administered on 09/22/16 08:43; Admin Dose 1 TAB; Start 08/30/16 at 09:00 Zolpidem Tartrate (Ambien) 5 mg QHS PRN GTB INSOMNIA; Start 08/29/16 at 23:00 Lansoprazole (Prevacid) 30 mg DAILY@06 GTB Last administered on 09/22/16 06:02 ; Admin Dose 30 MG; Start 08/30/16 at 06:00 Acetaminophen (Tylenol Liquid) 650 mg Q4H PRN GTB PAIN AND OR ELEVATED TEMP Last administered on 09/13/16 09:35; Admin Dose 650 MG; Start 08/29/16 at 23:00 Insulin Aspart (Novolog Insulin Pen) NOVOLOG *MILD* ALGORI... Q6 SC Last administered on 09/21/16 17:29; Admin Dose 1 UNIT; Start 08/30/16 at 00:00 Miscellaneous Information 1 ea NOTE XX ; Start 08/31/16 at 07:00 Glucose (Glutose) 15 gm Q15M PRN PO DECREASED GLUCOSE; Start 08/31/16 at 07:00 Glucose (Glutose) 22.5 gm Q15M PRN PO DECREASED GLUCOSE; Start 08/31/16 at 07: 00 Dextrose (D50w Syringe) 25 ml Q15M PRN IV DECREASED GLUCOSE Last administered on 09/20/16 06:33; Admin Dose 25 ML; Start 08/31/16 at 07:00 Dextrose (D50w Syringe) 50 ml Q15M PRN IV DECREASED GLUCOSE; Start 08/31/16 at 07:00 Glucagon (Glucagen) 1 mg Q15M PRN IM DECREASED GLUCOSE; Start 08/31/16 at 07:00 Glucose (Glutose) 15 gm Q15M PRN BUCCAL DECREASED GLUCOSE; Start 08/31/16 at 07 :00 Bacitracin/ Polymyxin B Sulfate (Ak-Poly-Anais Oph Oint) 1 applic BID BOTH EYES Last administered on 09/22/16 08:51; Admin Dose 1 APPLIC; Start 09/08/16 at 12: 00 Insulin Detemir (Levemir) 9 unit HS SC Last administered on 09/21/16 20:42; Admin Dose 9 UNIT; Start 09/20/16 at 21:00 CANDY JUAREZ September 22, 2016 11:22
--- NOTE | 2016-09-22 17:21 | CONS ---
Date/Time of Note Date/Time of Note DATE: 09/22/16 TIME: 17:21 Assessment/Plan Assessment/Plan Chief Complaint/Hosp Course - sepsis due to HCAP; procalcitonin 0.93 - HCAP due to pseudomonas per resp cx on 08/29/16 & 09/13/16 (now intermediate sensitivity to Cefepime) - Chronic respiratory failure with trach - G tube dependent - h/o intracranial bleed s/p craniotomy - ESRD on HD - hyponatremia - improved - T2DM - Hgb A1c 4.8% 08/08/16 per SNF records - HTN associated with DM - anemia of CKD - thrombocytosis - BPH - Hx prostate CA per SNF records ([facility]) - acute on chronic encephalopathy - MRI brain 09/12/16 showed no acute infarct; improving - fever due to persistent pseudomonas -improving - elevated 1, 8-Nidd-L-glucan Note: Pt took Cefepime (08/29/16-09/13/16), Caspofungin (09/13/16-09/16/16) and Meropenem (09/13/16-09/20/16) recommendations: - Monitor off abx Problems: Consultation Date/Type/Reason Admit Date/Time Aug 29, 2016 at 16:21 Initial Consult Date 08/31/16 Type of Consultation: id Referring Provider: CANDY JUAREZ Exam/Review of Systems Vital Signs Vitals Vital Signs Date Time Temp Pulse Resp B/P Pulse Ox O2 Delivery O2 Flow Rate FiO2 09/22/16 16:29 5.0 28 09/22/16 12:01 96 17 98 Aerosol T Tube 09/22/16 07:32 97.9 122/60 Intake and Output 09/21/16 09/21/16 09/22/16 15:00 23:00 07:00 Intake Total 500 ml 720 ml 730 ml Output Total 2500 ml 0 ml Balance -2000 ml 720 ml 730 ml Exam Constitutional: alert, oriented, well developed Psych: nl mood/affect, no complaints Head: atraumatic, normocephalic Eyes: EOMI, PERRL, nl conjunctiva, nl lids, nl sclera ENMT: nl external ears & nose, nl lips & teeth, nl nasal mucosa & septum Neck: non-tender, supple Respiratory: clear to auscultation, normal air movement Cardiovascular: nl pulses, regular rate and rhythm Gastrointestinal: nl liver, spleen, non-tender, soft Musculoskeletal: nl extremities to inspection, nl gait and stance Results Result Diagram: 09/22/1611 09/22/16 0511 Results 24 hrs Laboratory Tests Test 09/21/16 17:25 09/21/16 20:39 09/22/16 00:15 09/22/16 05:11 Bedside Glucose 146 114 137 White Blood Count 4.7 #L Red Blood Count 3.05 L Hemoglobin 8.7 L Hematocrit 28.9 L Mean Corpuscular Volume 94.8 Mean Corpuscular Hemoglobin 28.5 L Mean Corpuscular Hemoglobin Concent 30.1 L Red Cell Distribution Width 16.9 H Platelet Count 377 Mean Platelet Volume 9.5 Neutrophils % 59.9 Lymphocytes % 19.8 Monocytes % 10.3 Eosinophils % 8.6 H Basophils % 0.8 Nucleated Red Blood Cells % 0.0 Neutrophils # 2.8 Lymphocytes # 0.9 Monocytes # 0.5 Eosinophils # 0.4 Basophils # 0.0 Nucleated Red Blood Cells # 0.0 Sodium Level 143 Potassium Level 4.0 Chloride Level 108 # Carbon Dioxide Level 29 Anion Gap 10 # Blood Urea Nitrogen 44 #H Creatinine 2.98 #H Glucose Level 100 Calcium Level 10.3 H Test 09/22/16 06:01 09/22/16 12:08 Bedside Glucose 104 91 Medications Medications Current Medications Amlodipine Besylate (Norvasc) 5 mg DAILY GTB Last administered on 09/22/16 08: 45; Admin Dose 5 MG; Start 08/30/16 at 09:00 Clonidine (Catapres) 0.1 mg DAILY PRN GTB ELEVATED SYSTOLIC BP; Start 08/29/16 at 23:00 Doxazosin Mesylate (Cardura) 2 mg QHS GTB Last administered on 09/21/16 20:38 ; Admin Dose 2 MG; Start 08/30/16 at 21:00 Folic Acid (Folic Acid) 1 mg DAILY GTB Last administered on 09/22/16 08:43; Admin Dose 1 MG; Start 08/30/16 at 09:00 Hydralazine HCl (Apresoline) 50 mg Q8 GTB Last administered on 09/22/16 14:50 ; Admin Dose 50 MG; Start 08/30/16 at 06:00 Levetiracetam (Keppra Liquid) 500 mg BID GTB Last administered on 09/22/16 08: 46; Admin Dose 500 MG; Start 08/30/16 at 09:00 Metoprolol Tartrate (Lopressor) 25 mg BID GTB Last administered on 09/22/16 08 :46; Admin Dose 25 MG; Start 08/30/16 at 09:00 Multivit/Ca Carb/ B Cmplx/FA/Prenat (Leah-Juan Jose) 1 tab DAILY GTB Last administered on 09/22/16 08:43; Admin Dose 1 TAB; Start 08/30/16 at 09:00 Ondansetron HCl (Zofran Tab) 4 mg Q6H PRN GTB NAUSEA AND/OR VOMITING; Start at 23:00 Senna (Senokot) 1 tab DAILY GTB Last administered on 09/22/16 08:43; Admin Dose 1 TAB; Start 08/30/16 at 09:00 Zolpidem Tartrate (Ambien) 5 mg QHS PRN GTB INSOMNIA; Start 08/29/16 at 23:00 Lansoprazole (Prevacid) 30 mg DAILY@06 GTB Last administered on 09/22/16 06:02 ; Admin Dose 30 MG; Start 08/30/16 at 06:00 Acetaminophen (Tylenol Liquid) 650 mg Q4H PRN GTB PAIN AND OR ELEVATED TEMP Last administered on 09/13/16 09:35; Admin Dose 650 MG; Start 08/29/16 at 23:00 Insulin Aspart (Novolog Insulin Pen) NOVOLOG *MILD* ALGORI... Q6 SC Last administered on 09/21/16 17:29; Admin Dose 1 UNIT; Start 08/30/16 at 00:00 Miscellaneous Information 1 ea NOTE XX ; Start 08/31/16 at 07:00 Glucose (Glutose) 15 gm Q15M PRN PO DECREASED GLUCOSE; Start 08/31/16 at 07:00 Glucose (Glutose) 22.5 gm Q15M PRN PO DECREASED GLUCOSE; Start 08/31/16 at 07: 00 Dextrose (D50w Syringe) 25 ml Q15M PRN IV DECREASED GLUCOSE Last administered on 09/20/16 06:33; Admin Dose 25 ML; Start 08/31/16 at 07:00 Dextrose (D50w Syringe) 50 ml Q15M PRN IV DECREASED GLUCOSE; Start 08/31/16 at 07:00 Glucagon (Glucagen) 1 mg Q15M PRN IM DECREASED GLUCOSE; Start 08/31/16 at 07:00 Glucose (Glutose) 15 gm Q15M PRN BUCCAL DECREASED GLUCOSE; Start 08/31/16 at 07 :00 Bacitracin/ Polymyxin B Sulfate (Ak-Poly-Anais Oph Oint) 1 applic BID BOTH EYES Last administered on 09/22/16 08:51; Admin Dose 1 APPLIC; Start 09/08/16 at 12: 00 Insulin Detemir (Levemir) 9 unit HS SC Last administered on 09/21/16 20:42; Admin Dose 9 UNIT; Start 09/20/16 at 21:00 DIPAK PATRICIA MD September 22, 2016 17:21
[2016-09-22 20:13] VITALS: BP 93/51; RESP 20
[2016-09-22] MEDS: DOXAZOSIN 2 MG TAB GTB SCH (21:00)
[2016-09-22] MEDS: INSULIN DETEMIR [LEVEMIR] 3ML CART SC SCH (21:55)
[2016-09-23 05:31] VITALS: BP 138/62; PULSE 85
[2016-09-23] MEDS: LANSOPRAZOLE 30 MG CAP GTB SCH (05:32)
[2016-09-23] MEDS: INSULIN ASPART [NOVOLOG] 3 ML PEN SC SCH ×4 (05:40→17:51)
[2016-09-23 06:22] LABS: ADD SCAN DIFF NO
[2016-09-23 06:24] LABS: BASOPHILS % 0.7 % (0.0-2.0); EOSINOPHILS # 0.5 10^3/ul (0.0-0.5); EOSINOPHILS % 9.2 % (0.0-7.0); HEMATOCRIT 29.5 % (42.0-52.0); HEMOGLOBIN 8.9 g/dl (14.0-18.0); LYMPHOCYTES # 1.2 10^3/ul (0.8-2.9); LYMPHOCYTES % 20.7 % (15.0-51.0); MEAN CORPUSCULAR HEMOGLOBIN 28.7 pg (29.0-33.0); MEAN CORPUSCULAR HGB CONC 30.2 g/dl (32.0-37.0); MEAN CORPUSCULAR VOLUME 95.2 fl (82.0-101.0); MEAN PLATELET VOLUME 9.4 fl (7.4-10.4); MONOCYTE # 0.5 10^3/ul (0.3-0.9); MONOCYTES % 8.3 % (0.0-11.0); NEUTROPHIL # 3.4 10^3/ul (1.6-7.5); NEUTROPHILS % 60.6 % (39.0-77.0); PLATELET COUNT 375 10^3/UL (140-415); RED CELL DISTRIBUTION WIDTH 17.2 % (11.5-14.5); WHITE BLOOD COUNT 5.7 10^3/ul (4.8-10.8)
[2016-09-23 06:47] LABS: CALCIUM 10.7 mg/dl (8.4-10.2); CREATININE 3.98 mg/dl (0.61-1.24); POTASSIUM 4.5 mmol/L (3.5-5.1)
[2016-09-23 07:33] VITALS: BP 138/63; RESP 18
[2016-09-23] MEDS: LEVALBUTEROL (NEB) 0.63 MG/3 ML AMP NEB SCH ×4 (07:52→19:29)
[2016-09-23] MEDS: SEVELAMER CARBONATE 0.8 GM PKT GTB SCH ×3 (08:25→17:51)
[2016-09-23] MEDS: SENNA TAB GTB SCH (08:25)
[2016-09-23] MEDS: LEVETIRACETAM (100 MG/ML) 5ML CUP GTB SCH ×2 (08:25→20:50)
[2016-09-23] MEDS: FOLIC ACID 1 MG TAB GTB SCH (08:25)
[2016-09-23] MEDS: MULTIVIT/CA CARB/B CMPLX/FA TAB GTB SCH (08:25)
[2016-09-23] MEDS: METOPROLOL 25 MG TAB GTB SCH ×2 (08:26→20:53)
[2016-09-23] MEDS: AMLODIPINE 5 MG TAB GTB SCH (08:26)
[2016-09-23] MEDS: BACITRACIN/POLYMYX 3.5 GM OPH OINT BOTH EYES SCH ×2 (08:26→20:54)
--- NOTE | 2016-09-23 10:01 | CONS ---
Date/Time of Note Date/Time of Note DATE: 09/23/16 TIME: 10:00 Consult Date/Type/Reason Admit Date/Time Aug 29, 2016 at 16:21 Initial Consult Date 08/31/16 Type of Consultation: neph Ordering Provider: CANDY JUAREZ The patient is stable. on hd saturday without complication. poc reviewed with dr. fortune. No acute events overnight. No fevers, chills, nausea, or vomiting. OBJECTIVE: HEENT: Head is normocephalic. NECK: Supple. HEART: Regular rate. LUNGS: Showed diminished breath sounds at the base. ABDOMEN: Soft, nontender to palpation. No rebound or guarding. EXTREMITIES: Negative for clubbing, cyanosis or edema. DERMATOLOGIC: No rashes. MUSCULOSKELETAL: Have no joint effusion. NEUROLOGIC: No change in exam. MEDICATIONS: The patient's medications have been reviewed. Objective Vital Signs Date Time Temp Pulse Resp B/P Pulse Ox O2 Delivery O2 Flow Rate FiO2 09/23/16 07:54 83 16 99 Aerosol 5.0 28 T Tube 09/23/16 07:33 97.4 138/63 Intake and Output 09/22/16 09/22/16 09/23/16 15:00 23:00 07:00 Intake Total 720 ml 275 ml Balance 720 ml 275 ml Results/Medications Result Diagram: 09/23/16 0552 09/23/16 0552 Results 24 hrs Laboratory Tests Test 09/22/16 12:08 09/22/16 17:30 09/22/16 21:46 09/23/16 00:29 Bedside Glucose 91 112 121 130 Test 09/23/16 05:39 09/23/16 05:52 Bedside Glucose 86 White Blood Count 5.7 # Red Blood Count 3.10 L Hemoglobin 8.9 L Hematocrit 29.5 L Mean Corpuscular Volume 95.2 Mean Corpuscular Hemoglobin 28.7 L Mean Corpuscular Hemoglobin Concent 30.2 L Red Cell Distribution Width 17.2 H Platelet Count 375 Mean Platelet Volume 9.4 Neutrophils % 60.6 Lymphocytes % 20.7 Monocytes % 8.3 Eosinophils % 9.2 H Basophils % 0.7 Nucleated Red Blood Cells % 0.0 Neutrophils # 3.4 Lymphocytes # 1.2 Monocytes # 0.5 Eosinophils # 0.5 Basophils # 0.0 Nucleated Red Blood Cells # 0.0 Sodium Level 140 Potassium Level 4.5 Chloride Level 104 Carbon Dioxide Level 27 Anion Gap 14 Blood Urea Nitrogen 75 #H Creatinine 3.98 #H Glucose Level 77 Calcium Level 10.7 H Medications Current Medications Amlodipine Besylate (Norvasc) 5 mg DAILY GTB Last administered on 09/23/16 08: 26; Admin Dose 5 MG; Start 08/30/16 at 09:00 Clonidine (Catapres) 0.1 mg DAILY PRN GTB ELEVATED SYSTOLIC BP; Start 08/29/16 at 23:00 Doxazosin Mesylate (Cardura) 2 mg QHS GTB Last administered on 09/21/16 20:38 ; Admin Dose 2 MG; Start 08/30/16 at 21:00 Folic Acid (Folic Acid) 1 mg DAILY GTB Last administered on 09/23/16 08:25; Admin Dose 1 MG; Start 08/30/16 at 09:00 Hydralazine HCl (Apresoline) 50 mg Q8 GTB Last administered on 09/23/16 05:33 ; Admin Dose 50 MG; Start 08/30/16 at 06:00 Levetiracetam (Keppra Liquid) 500 mg BID GTB Last administered on 09/23/16 08: 25; Admin Dose 500 MG; Start 08/30/16 at 09:00 Metoprolol Tartrate (Lopressor) 25 mg BID GTB Last administered on 09/23/16 08 :26; Admin Dose 25 MG; Start 08/30/16 at 09:00 Multivit/Ca Carb/ B Cmplx/FA/Prenat (Leah-Juan Jose) 1 tab DAILY GTB Last administered on 09/23/16 08:25; Admin Dose 1 TAB; Start 08/30/16 at 09:00 Ondansetron HCl (Zofran Tab) 4 mg Q6H PRN GTB NAUSEA AND/OR VOMITING; Start at 23:00 Senna (Senokot) 1 tab DAILY GTB Last administered on 09/23/16 08:25; Admin Dose 1 TAB; Start 08/30/16 at 09:00 Zolpidem Tartrate (Ambien) 5 mg QHS PRN GTB INSOMNIA; Start 08/29/16 at 23:00 Lansoprazole (Prevacid) 30 mg DAILY@06 GTB Last administered on 09/23/16 05:32 ; Admin Dose 30 MG; Start 08/30/16 at 06:00 Acetaminophen (Tylenol Liquid) 650 mg Q4H PRN GTB PAIN AND OR ELEVATED TEMP Last administered on 09/13/16 09:35; Admin Dose 650 MG; Start 08/29/16 at 23:00 Insulin Aspart (Novolog Insulin Pen) NOVOLOG *MILD* ALGORI... Q6 SC Last administered on 09/21/16 17:29; Admin Dose 1 UNIT; Start 08/30/16 at 00:00 Miscellaneous Information 1 ea NOTE XX ; Start 08/31/16 at 07:00 Glucose (Glutose) 15 gm Q15M PRN PO DECREASED GLUCOSE; Start 08/31/16 at 07:00 Glucose (Glutose) 22.5 gm Q15M PRN PO DECREASED GLUCOSE; Start 08/31/16 at 07: 00 Dextrose (D50w Syringe) 25 ml Q15M PRN IV DECREASED GLUCOSE Last administered on 09/20/16 06:33; Admin Dose 25 ML; Start 08/31/16 at 07:00 Dextrose (D50w Syringe) 50 ml Q15M PRN IV DECREASED GLUCOSE; Start 08/31/16 at 07:00 Glucagon (Glucagen) 1 mg Q15M PRN IM DECREASED GLUCOSE; Start 08/31/16 at 07:00 Glucose (Glutose) 15 gm Q15M PRN BUCCAL DECREASED GLUCOSE; Start 08/31/16 at 07 :00 Bacitracin/ Polymyxin B Sulfate (Ak-Poly-Anais Oph Oint) 1 applic BID BOTH EYES Last administered on 09/23/16 08:26; Admin Dose 1 APPLIC; Start 09/08/16 at 12: 00 Insulin Detemir (Levemir) 9 unit HS SC Last administered on 09/22/16 21:55; Admin Dose 9 UNIT; Start 09/20/16 at 21:00 Assessment/Plan Chief Complaint/Hosp Course 1. End-stage renal disease. The patient is scheduled for dialysis tomorrow for 3 hours, 3K bath, calcium 2.5. Will ultrafiltrate as tolerated. 2. Anemia. Continue to monitor hemoglobin and hematocrit levels. Continue Epogen. 3. Mineral bone disorder. Continue to monitor calcium and phosphorus levels. 4. Hypertension. Continue the current blood pressure regimen. 5. Sepsis secondary to pneumonia. The patient is completing an antibiotic course. 6. Chronic respiratory failure. Status post tracheostomy. Currently stable. 7. Diabetes. Continue Accu-Cheks and insulin sliding scale. 8. Chronic encephalopathy. Continue to monitor. 9. Seizure disorder. Continue medical management. 10. History of intracranial bleed. Problems: KIM PEARCE MD September 23, 2016 10:01
--- NOTE | 2016-09-23 13:21 | CONS ---
Date/Time of Note Date/Time of Note DATE: 09/23/16 TIME: 13:11 Consult Date/Type/Reason Admit Date/Time Aug 29, 2016 at 16:21 Initial Consult Date 08/31/16 Type of Consultation: Infectious Disease Ordering Provider: CANDY JUAREZ Subjective unbale, tracheostomy in place Objective Vital Signs Date Time Temp Pulse Resp B/P Pulse Ox O2 Delivery O2 Flow Rate FiO2 09/23/16 11:54 74 18 99 Aerosol 5.0 T Tube 09/23/16 07:54 28 09/23/16 07:33 97.4 138/63 Intake and Output 09/22/16 09/22/16 09/23/16 15:00 23:00 07:00 Intake Total 720 ml 275 ml Balance 720 ml 275 ml Exam Constitutional: alert, non-verbal, well developed Head: atraumatic, normocephalic Eyes: wnl Neck: tracheostomy in place on T-piece Respiratory: clear to auscultation, HD catheter right chest wall area Cardiovascular: regular rate and rhythm Gastrointestinal: bowel sounds (present), other (GT intact with tube feeds), soft Extremities: other (atrophy noted; RUE AVF +bruit/thrill; Left hand HL with no e/o infection) Neurological: +tracking, unable to follow commands; Psyche: flat affect Skin: warm, dry, normal turgor, (wounds- healing stage 2 at the sacral area per RN) Results/Medications Result Diagram: 09/23/16 0552 09/23/16 0552 Results 24 hrs Laboratory Tests Test 09/22/16 17:30 09/22/16 21:46 09/23/16 00:29 09/23/16 05:39 Bedside Glucose 112 121 130 86 Test 09/23/16 05:52 09/23/16 12:10 White Blood Count 5.7 # Red Blood Count 3.10 L Hemoglobin 8.9 L Hematocrit 29.5 L Mean Corpuscular Volume 95.2 Mean Corpuscular Hemoglobin 28.7 L Mean Corpuscular Hemoglobin Concent 30.2 L Red Cell Distribution Width 17.2 H Platelet Count 375 Mean Platelet Volume 9.4 Neutrophils % 60.6 Lymphocytes % 20.7 Monocytes % 8.3 Eosinophils % 9.2 H Basophils % 0.7 Nucleated Red Blood Cells % 0.0 Neutrophils # 3.4 Lymphocytes # 1.2 Monocytes # 0.5 Eosinophils # 0.5 Basophils # 0.0 Nucleated Red Blood Cells # 0.0 Sodium Level 140 Potassium Level 4.5 Chloride Level 104 Carbon Dioxide Level 27 Anion Gap 14 Blood Urea Nitrogen 75 #H Creatinine 3.98 #H Glucose Level 77 Calcium Level 10.7 H Bedside Glucose 74 Medications Current Medications Amlodipine Besylate (Norvasc) 5 mg DAILY GTB Last administered on 09/23/16 08: 26; Admin Dose 5 MG; Start 08/30/16 at 09:00 Clonidine (Catapres) 0.1 mg DAILY PRN GTB ELEVATED SYSTOLIC BP; Start 08/29/16 at 23:00 Doxazosin Mesylate (Cardura) 2 mg QHS GTB Last administered on 09/21/16 20:38 ; Admin Dose 2 MG; Start 08/30/16 at 21:00 Folic Acid (Folic Acid) 1 mg DAILY GTB Last administered on 09/23/16 08:25; Admin Dose 1 MG; Start 08/30/16 at 09:00 Hydralazine HCl (Apresoline) 50 mg Q8 GTB Last administered on 09/23/16 05:33 ; Admin Dose 50 MG; Start 08/30/16 at 06:00 Levetiracetam (Keppra Liquid) 500 mg BID GTB Last administered on 09/23/16 08: 25; Admin Dose 500 MG; Start 08/30/16 at 09:00 Metoprolol Tartrate (Lopressor) 25 mg BID GTB Last administered on 09/23/16 08 :26; Admin Dose 25 MG; Start 08/30/16 at 09:00 Multivit/Ca Carb/ B Cmplx/FA/Prenat (Leah-Juan Jose) 1 tab DAILY GTB Last administered on 09/23/16 08:25; Admin Dose 1 TAB; Start 08/30/16 at 09:00 Ondansetron HCl (Zofran Tab) 4 mg Q6H PRN GTB NAUSEA AND/OR VOMITING; Start at 23:00 Senna (Senokot) 1 tab DAILY GTB Last administered on 09/23/16 08:25; Admin Dose 1 TAB; Start 08/30/16 at 09:00 Zolpidem Tartrate (Ambien) 5 mg QHS PRN GTB INSOMNIA; Start 08/29/16 at 23:00 Lansoprazole (Prevacid) 30 mg DAILY@06 GTB Last administered on 09/23/16 05:32 ; Admin Dose 30 MG; Start 08/30/16 at 06:00 Acetaminophen (Tylenol Liquid) 650 mg Q4H PRN GTB PAIN AND OR ELEVATED TEMP Last administered on 09/13/16 09:35; Admin Dose 650 MG; Start 08/29/16 at 23:00 Insulin Aspart (Novolog Insulin Pen) NOVOLOG *MILD* ALGORI... Q6 SC Last administered on 09/21/16 17:29; Admin Dose 1 UNIT; Start 08/30/16 at 00:00 Miscellaneous Information 1 ea NOTE XX ; Start 08/31/16 at 07:00 Glucose (Glutose) 15 gm Q15M PRN PO DECREASED GLUCOSE; Start 08/31/16 at 07:00 Glucose (Glutose) 22.5 gm Q15M PRN PO DECREASED GLUCOSE; Start 08/31/16 at 07: 00 Dextrose (D50w Syringe) 25 ml Q15M PRN IV DECREASED GLUCOSE Last administered on 09/20/16 06:33; Admin Dose 25 ML; Start 08/31/16 at 07:00 Dextrose (D50w Syringe) 50 ml Q15M PRN IV DECREASED GLUCOSE; Start 08/31/16 at 07:00 Glucagon (Glucagen) 1 mg Q15M PRN IM DECREASED GLUCOSE; Start 08/31/16 at 07:00 Glucose (Glutose) 15 gm Q15M PRN BUCCAL DECREASED GLUCOSE; Start 08/31/16 at 07 :00 Bacitracin/ Polymyxin B Sulfate (Ak-Poly-Anais Oph Oint) 1 applic BID BOTH EYES Last administered on 09/23/16 08:26; Admin Dose 1 APPLIC; Start 09/08/16 at 12: 00 Insulin Detemir (Levemir) 9 unit HS SC Last administered on 09/22/16 21:55; Admin Dose 9 UNIT; Start 09/20/16 at 21:00 Assessment/Plan Chief Complaint/Hosp Course Assessment/Plan Chief Complaint/Hosp Course - sepsis due to HCAP - HCAP due to pseudomonas per resp cx on 08/29/16 & 09/13/16 (now intermediate sensitivity to Cefepime) - Chronic respiratory failure with trach - G tube dependent - h/o intracranial bleed s/p craniotomy - ESRD on HD - hyponatremia - improved - T2DM - Hgb A1c 4.8% 08/08/16 per SNF records - HTN associated with DM - anemia of CKD - thrombocytosis - BPH - Hx prostate CA per SNF records ([facility]) - acute on chronic encephalopathy - MRI brain 09/12/16 showed no acute infarct; improving - fever due to persistent pseudomonas -improving Note: Pt took Cefepime (08/29/16-09/13/16) and Caspofungin (09/13/16-09/16/16) recommendations: - awaiting SNF placement - will continue to monitor off antibiotics - Care and management d/w CALE Mao and Dr. Burleson Problems: MEHREEN ALBERT September 23, 2016 13:21
--- NOTE | 2016-09-23 13:53 | PN ---
Date/Time of Note Date/Time of Note DATE: 09/23/16 TIME: 13:42 Assessment/Plan VTE Prophylaxis VTE Prophylaxis Intervention: SCD's Lines/Catheters IV [facility] Type [facility]from [facility] Central Line Central line still needed: Yes Urinary Cath still in place: No Assessment/Plan Assessment/Plan - Acute on chronic encephalopathy, MRI of the brain is negative for any acute stroke. - Sepsis secondary to HCAP, resolving. continue antibiotics per ID. Dr. Benjy lang is following in infection disease consultation. - HCAP. Sputum cultures positive for Pseudomonas. Continue antibiotics per ID. - Chronic respiratory failure with tracheostomy, currently on T-piece. Dr. Freitas is following in pulmonology consultation - End-stage renal disease on hemodialysis. Continue hemodialysis per nephrology. Dr. Sales is following in nephrology consultation. - Hypertension. Continue metoprolol and hydralazine. - History of nontraumatic intracranial bleed, status post craniotomy. - Possible seizure disorder. Continue Keppra. - Diabetes. Continue Levemir and NovoLog per mild algorithm sliding scale. - Anemia of chronic kidney disease. - Acute on chronic encephalopathy. Awaits correction facility placement Further recommendations based on clinical course. Plan of care discussed with Dr. Godinez. Subjective 24 Hr Interval Summary Free Text/Dictation NAD, lying in bed, awake open eyes, trach intact, afebrile, hemodialysis yesterday 2 L removed, first and if transfer. Discussed with staff no new events reported overnight Subjective hx not possible: pt non-verbal Constitutional: requiring IVF, requiring O2 Exam/Review of Systems Vital Signs Vitals Vital Signs Date Time Temp Pulse Resp B/P Pulse Ox O2 Delivery O2 Flow Rate FiO2 09/23/16 11:54 74 18 99 Aerosol 5.0 T Tube 09/23/16 07:54 28 09/23/16 07:33 97.4 138/63 Intake and Output 09/22/16 09/22/16 09/23/16 15:00 23:00 07:00 Intake Total 720 ml 275 ml Balance 720 ml 275 ml Exam Constitutional: alert, well developed Respiratory: clear to auscultation, normal air movement Cardiovascular: nl pulses, regular rate and rhythm Gastrointestinal: non-tender, other, soft Musculoskeletal: muscle weakness Extremities: normal pulses Neurological: confused, lethargic Results Result Diagram: 09/23/16 0552 09/23/16 0552 Results 24 hrs Laboratory Tests Test 09/22/16 17:30 09/22/16 21:46 09/23/16 00:29 09/23/16 05:39 Bedside Glucose 112 121 130 86 Test 09/23/16 05:52 09/23/16 12:10 White Blood Count 5.7 # Red Blood Count 3.10 L Hemoglobin 8.9 L Hematocrit 29.5 L Mean Corpuscular Volume 95.2 Mean Corpuscular Hemoglobin 28.7 L Mean Corpuscular Hemoglobin Concent 30.2 L Red Cell Distribution Width 17.2 H Platelet Count 375 Mean Platelet Volume 9.4 Neutrophils % 60.6 Lymphocytes % 20.7 Monocytes % 8.3 Eosinophils % 9.2 H Basophils % 0.7 Nucleated Red Blood Cells % 0.0 Neutrophils # 3.4 Lymphocytes # 1.2 Monocytes # 0.5 Eosinophils # 0.5 Basophils # 0.0 Nucleated Red Blood Cells # 0.0 Sodium Level 140 Potassium Level 4.5 Chloride Level 104 Carbon Dioxide Level 27 Anion Gap 14 Blood Urea Nitrogen 75 #H Creatinine 3.98 #H Glucose Level 77 Calcium Level 10.7 H Bedside Glucose 74 Medications Medications Current Medications Amlodipine Besylate (Norvasc) 5 mg DAILY GTB Last administered on 09/23/16 08: 26; Admin Dose 5 MG; Start 08/30/16 at 09:00 Clonidine (Catapres) 0.1 mg DAILY PRN GTB ELEVATED SYSTOLIC BP; Start 08/29/16 at 23:00 Doxazosin Mesylate (Cardura) 2 mg QHS GTB Last administered on 09/21/16 20:38 ; Admin Dose 2 MG; Start 08/30/16 at 21:00 Folic Acid (Folic Acid) 1 mg DAILY GTB Last administered on 09/23/16 08:25; Admin Dose 1 MG; Start 08/30/16 at 09:00 Hydralazine HCl (Apresoline) 50 mg Q8 GTB Last administered on 09/23/16 05:33 ; Admin Dose 50 MG; Start 08/30/16 at 06:00 Levetiracetam (Keppra Liquid) 500 mg BID GTB Last administered on 09/23/16 08: 25; Admin Dose 500 MG; Start 08/30/16 at 09:00 Metoprolol Tartrate (Lopressor) 25 mg BID GTB Last administered on 09/23/16 08 :26; Admin Dose 25 MG; Start 08/30/16 at 09:00 Multivit/Ca Carb/ B Cmplx/FA/Prenat (Leah-Juan Jose) 1 tab DAILY GTB Last administered on 09/23/16 08:25; Admin Dose 1 TAB; Start 08/30/16 at 09:00 Ondansetron HCl (Zofran Tab) 4 mg Q6H PRN GTB NAUSEA AND/OR VOMITING; Start at 23:00 Senna (Senokot) 1 tab DAILY GTB Last administered on 09/23/16 08:25; Admin Dose 1 TAB; Start 08/30/16 at 09:00 Zolpidem Tartrate (Ambien) 5 mg QHS PRN GTB INSOMNIA; Start 08/29/16 at 23:00 Lansoprazole (Prevacid) 30 mg DAILY@06 GTB Last administered on 09/23/16 05:32 ; Admin Dose 30 MG; Start 08/30/16 at 06:00 Acetaminophen (Tylenol Liquid) 650 mg Q4H PRN GTB PAIN AND OR ELEVATED TEMP Last administered on 09/13/16 09:35; Admin Dose 650 MG; Start 08/29/16 at 23:00 Insulin Aspart (Novolog Insulin Pen) NOVOLOG *MILD* ALGORI... Q6 SC Last administered on 09/21/16 17:29; Admin Dose 1 UNIT; Start 08/30/16 at 00:00 Miscellaneous Information 1 ea NOTE XX ; Start 08/31/16 at 07:00 Glucose (Glutose) 15 gm Q15M PRN PO DECREASED GLUCOSE; Start 08/31/16 at 07:00 Glucose (Glutose) 22.5 gm Q15M PRN PO DECREASED GLUCOSE; Start 08/31/16 at 07: 00 Dextrose (D50w Syringe) 25 ml Q15M PRN IV DECREASED GLUCOSE Last administered on 09/20/16 06:33; Admin Dose 25 ML; Start 08/31/16 at 07:00 Dextrose (D50w Syringe) 50 ml Q15M PRN IV DECREASED GLUCOSE; Start 08/31/16 at 07:00 Glucagon (Glucagen) 1 mg Q15M PRN IM DECREASED GLUCOSE; Start 08/31/16 at 07:00 Glucose (Glutose) 15 gm Q15M PRN BUCCAL DECREASED GLUCOSE; Start 08/31/16 at 07 :00 Bacitracin/ Polymyxin B Sulfate (Ak-Poly-Anais Oph Oint) 1 applic BID BOTH EYES Last administered on 09/23/16 08:26; Admin Dose 1 APPLIC; Start 09/08/16 at 12: 00 Insulin Detemir (Levemir) 9 unit HS SC Last administered on 09/22/16 21:55; Admin Dose 9 UNIT; Start 09/20/16 at 21:00 CANDY JUAREZ September 23, 2016 13:53
[2016-09-23 20:06] VITALS: BP 149/70; RESP 20
[2016-09-23 20:50] VITALS: BP 145/68; PULSE 80
[2016-09-23] MEDS: DOXAZOSIN 2 MG TAB GTB SCH (20:53)
[2016-09-23] MEDS: INSULIN DETEMIR [LEVEMIR] 3ML CART SC SCH (20:58)
[2016-09-23 22:05] VITALS: BP 127/62; PULSE 74
[2016-09-24] VITALS (11 sets, daily range): BP systolic 106–181; BP diastolic 54–79; PULSE 79–88; RESP 18
[2016-09-24 05:54] LABS: ADD SCAN DIFF NO
[2016-09-24 05:57] LABS: BASOPHILS % 0.4 % (0.0-2.0); EOSINOPHILS # 0.5 10^3/ul (0.0-0.5); EOSINOPHILS % 8.8 % (0.0-7.0); HEMATOCRIT 26.7 % (42.0-52.0); HEMOGLOBIN 8.3 g/dl (14.0-18.0); LYMPHOCYTES % 19.5 % (15.0-51.0); MEAN CORPUSCULAR HEMOGLOBIN 29.2 pg (29.0-33.0); MEAN CORPUSCULAR HGB CONC 31.1 g/dl (32.0-37.0); MEAN PLATELET VOLUME 9.4 fl (7.4-10.4); MONOCYTE # 0.4 10^3/ul (0.3-0.9); MONOCYTES % 7.2 % (0.0-11.0); NEUTROPHIL # 3.2 10^3/ul (1.6-7.5); NEUTROPHILS % 63.3 % (39.0-77.0); PLATELET COUNT 364 10^3/UL (140-415); RED BLOOD COUNT 2.84 10^6/ul (4.70-6.10); RED CELL DISTRIBUTION WIDTH 17.1 % (11.5-14.5); WHITE BLOOD COUNT 5.1 10^3/ul (4.8-10.8)
[2016-09-24] MEDS: INSULIN ASPART [NOVOLOG] 3 ML PEN SC SCH ×4 (06:00→17:48)
[2016-09-24] MEDS: LANSOPRAZOLE 30 MG CAP GTB SCH (06:06)
[2016-09-24 06:17] LABS: CREATININE 5.15 mg/dl (0.61-1.24)
[2016-09-24 06:18] LABS: CALCIUM 10.5 mg/dl (8.4-10.2)
[2016-09-24 06:27] LABS: POTASSIUM 4.2 mmol/L (3.5-5.1)
[2016-09-24] MEDS: LEVALBUTEROL (NEB) 0.63 MG/3 ML AMP NEB SCH ×4 (07:27→19:31)
[2016-09-24] MEDS: SENNA TAB GTB SCH (08:46)
[2016-09-24] MEDS: METOPROLOL 25 MG TAB GTB SCH ×2 (08:46→20:16)
[2016-09-24] MEDS: MULTIVIT/CA CARB/B CMPLX/FA TAB GTB SCH (08:46)
[2016-09-24] MEDS: BACITRACIN/POLYMYX 3.5 GM OPH OINT BOTH EYES SCH ×2 (08:46→20:15)
[2016-09-24] MEDS: AMLODIPINE 5 MG TAB GTB SCH (08:46)
[2016-09-24] MEDS: LEVETIRACETAM (100 MG/ML) 5ML CUP GTB SCH ×2 (08:46→20:16)
[2016-09-24] MEDS: SEVELAMER CARBONATE 0.8 GM PKT GTB SCH ×3 (08:46→17:44)
[2016-09-24] MEDS: FOLIC ACID 1 MG TAB GTB SCH (08:46)
--- NOTE | 2016-09-24 08:52 | PN ---
DATE: 09/24/2016 SUBJECTIVE: The patient is stable. No events overnight. No fevers, chills, nausea, vomiting, no s hortness of breath. OBJECTIVE: VITAL SIGNS: Blood pressure is 134/62, respirations 18, pulse 81, temperature 97.4. HEENT: Head is normocephalic. NECK: Supple. HEART: Regular rate. LUNGS: Show diminished breath sounds at the base. ABDOMEN: Soft, nontender to palpation, no rebound or guarding. EXTREMITIES: Negative for clubbing, cyanosis, no edema. DERMATOLOGIC: No rashes. MUSCULOSKELETAL: No joint effusions. NEUROLOGIC: No change in exam. MEDICATIONS: Reviewed. LABORATORY DATA: Shows sodium 139, potassium 4.2, chloride 100, BUN 102, creatinine 5.15, calcium 1 0.5. White count 5.1, hemoglobin 8.2, hematocrit 26.7, platelet count is 364. ASSESSMENT AND PLAN: 1. End-stage renal disease. Plan for dialysis today for 3 hours on a 3K bath, calcium 2.5. 2. Anemia. Continue to monitor hemoglobin and hematocrit levels. Continue Epogen. 3. Mineral bone disorder. Continue to monitor calcium and phosphorus levels. 4. Hypertension. Continue current blood pressure regimen. 5. Sepsis secondary to pneumonia. The patient is to complete antibiotic course. 6. Chronic respiratory failure status post trach, currently stable. 7. Diabetes, continue Accu-Cheks and insulin sliding scale. 8. Chronic encephalopathy. Continue to monitor. 9. Seizure disorder. Continue medical management. 10. History of intracranial bleed. Dictated By: MARYURI WALLER/FRANCES Conf#: [id number] DID#: [id number]
--- NOTE | 2016-09-24 15:39 | CONS ---
Date/Time of Note Date/Time of Note DATE: 09/24/16 TIME: 15:39 Assessment/Plan Assessment/Plan Chief Complaint/Hosp Course - sepsis due to HCAP - HCAP due to pseudomonas per resp cx on 08/29/16 & 09/13/16 (now intermediate sensitivity to Cefepime) - Chronic respiratory failure with trach - G tube dependent - h/o intracranial bleed s/p craniotomy - ESRD on HD - hyponatremia - improved - T2DM - Hgb A1c 4.8% 08/08/16 per SNF records - HTN associated with DM - anemia of CKD - thrombocytosis - BPH - Hx prostate CA per SNF records ([facility]) - acute on chronic encephalopathy - MRI brain 09/12/16 showed no acute infarct; improving - fever due to persistent pseudomonas -improving Note: Pt took Cefepime (08/29/16-09/13/16) and Caspofungin (09/13/16-09/16/16) recommendations: - awaiting SNF placement - will continue to monitor off antibiotics Problems: Consultation Date/Type/Reason Admit Date/Time Aug 29, 2016 at 16:21 Initial Consult Date 08/31/16 Type of Consultation: Infectious Disease Referring Provider: CANDY JUAREZ 24 HR Interval Summary Subjective hx not possible: pt non-verbal Exam/Review of Systems Vital Signs Vitals Vital Signs Date Time Temp Pulse Resp B/P Pulse Ox O2 Delivery O2 Flow Rate FiO2 09/24/16 11:46 75 18 98 Aerosol 5.0 T Tube 09/24/16 07:43 97.4 134/63 09/24/16 05:12 28 Intake and Output 09/23/16 09/23/16 09/24/16 15:00 23:00 07:00 Intake Total 330 ml 660 ml Balance 330 ml 660 ml Exam Constitutional: non-verbal Psych: no complaints Head: atraumatic, normocephalic Eyes: EOMI, nl conjunctiva Neck: supple Respiratory: clear to auscultation Cardiovascular: regular rate and rhythm Gastrointestinal: soft Results Result Diagram: 09/24/16 0510 09/24/16 0510 Results 24 hrs Laboratory Tests Test 09/23/16 17:50 09/23/16 20:55 09/24/16 00:18 09/24/16 05:10 Bedside Glucose 99 99 130 White Blood Count 5.1 Red Blood Count 2.84 L Hemoglobin 8.3 L Hematocrit 26.7 L Mean Corpuscular Volume 94.0 Mean Corpuscular Hemoglobin 29.2 Mean Corpuscular Hemoglobin Concent 31.1 L Red Cell Distribution Width 17.1 H Platelet Count 364 Mean Platelet Volume 9.4 Neutrophils % 63.3 Lymphocytes % 19.5 Monocytes % 7.2 Eosinophils % 8.8 H Basophils % 0.4 Nucleated Red Blood Cells % 0.0 Neutrophils # 3.2 Lymphocytes # 1.0 Monocytes # 0.4 Eosinophils # 0.5 Basophils # 0.0 Nucleated Red Blood Cells # 0.0 Sodium Level 139 Potassium Level 4.2 Chloride Level 100 Carbon Dioxide Level 25 Anion Gap 18 H Blood Urea Nitrogen 102 H Creatinine 5.15 H Glucose Level 99 Calcium Level 10.5 H Test 09/24/16 06:07 09/24/16 12:11 Bedside Glucose 109 144 Medications Medications Current Medications Amlodipine Besylate (Norvasc) 5 mg DAILY GTB Last administered on 09/23/16 08: 26; Admin Dose 5 MG; Start 08/30/16 at 09:00 Clonidine (Catapres) 0.1 mg DAILY PRN GTB ELEVATED SYSTOLIC BP; Start 08/29/16 at 23:00 Doxazosin Mesylate (Cardura) 2 mg QHS GTB Last administered on 09/23/16 20:53 ; Admin Dose 2 MG; Start 08/30/16 at 21:00 Folic Acid (Folic Acid) 1 mg DAILY GTB Last administered on 09/24/16 08:46; Admin Dose 1 MG; Start 08/30/16 at 09:00 Hydralazine HCl (Apresoline) 50 mg Q8 GTB Last administered on 09/24/16 06:10 ; Admin Dose 50 MG; Start 08/30/16 at 06:00 Levetiracetam (Keppra Liquid) 500 mg BID GTB Last administered on 09/24/16 08: 46; Admin Dose 500 MG; Start 08/30/16 at 09:00 Metoprolol Tartrate (Lopressor) 25 mg BID GTB Last administered on 09/23/16 20 :53; Admin Dose 25 MG; Start 08/30/16 at 09:00 Multivit/Ca Carb/ B Cmplx/FA/Prenat (Leah-Juan Jose) 1 tab DAILY GTB Last administered on 09/24/16 08:46; Admin Dose 1 TAB; Start 08/30/16 at 09:00 Ondansetron HCl (Zofran Tab) 4 mg Q6H PRN GTB NAUSEA AND/OR VOMITING; Start at 23:00 Senna (Senokot) 1 tab DAILY GTB Last administered on 09/24/16 08:46; Admin Dose 1 TAB; Start 08/30/16 at 09:00 Zolpidem Tartrate (Ambien) 5 mg QHS PRN GTB INSOMNIA; Start 08/29/16 at 23:00 Lansoprazole (Prevacid) 30 mg DAILY@06 GTB Last administered on 09/24/16 06:06 ; Admin Dose 30 MG; Start 08/30/16 at 06:00 Acetaminophen (Tylenol Liquid) 650 mg Q4H PRN GTB PAIN AND OR ELEVATED TEMP Last administered on 09/13/16 09:35; Admin Dose 650 MG; Start 08/29/16 at 23:00 Insulin Aspart (Novolog Insulin Pen) NOVOLOG *MILD* ALGORI... Q6 SC Last administered on 09/24/16 12:25; Admin Dose 1 UNIT; Start 08/30/16 at 00:00 Miscellaneous Information 1 ea NOTE XX ; Start 08/31/16 at 07:00 Glucose (Glutose) 15 gm Q15M PRN PO DECREASED GLUCOSE; Start 08/31/16 at 07:00 Glucose (Glutose) 22.5 gm Q15M PRN PO DECREASED GLUCOSE; Start 08/31/16 at 07: 00 Dextrose (D50w Syringe) 25 ml Q15M PRN IV DECREASED GLUCOSE Last administered on 09/20/16 06:33; Admin Dose 25 ML; Start 08/31/16 at 07:00 Dextrose (D50w Syringe) 50 ml Q15M PRN IV DECREASED GLUCOSE; Start 08/31/16 at 07:00 Glucagon (Glucagen) 1 mg Q15M PRN IM DECREASED GLUCOSE; Start 08/31/16 at 07:00 Glucose (Glutose) 15 gm Q15M PRN BUCCAL DECREASED GLUCOSE; Start 08/31/16 at 07 :00 Bacitracin/ Polymyxin B Sulfate (Ak-Poly-Anais Oph Oint) 1 applic BID BOTH EYES Last administered on 09/24/16 08:46; Admin Dose 1 APPLIC; Start 09/08/16 at 12: 00 Insulin Detemir (Levemir) 9 unit HS SC Last administered on 09/23/16 20:58; Admin Dose 9 UNIT; Start 09/20/16 at 21:00 DIPAK PATRICIA MD September 24, 2016 15:39
--- NOTE | 2016-09-24 19:27 | PN ---
Date/Time of Note Date/Time of Note DATE: 09/24/16 TIME: 19:25 Assessment/Plan VTE Prophylaxis VTE Prophylaxis Intervention: SCD's Lines/Catheters IV Catheter Type (from [facility]): Central Line Central line still needed: Yes Urinary Cath still in place: No Assessment/Plan Chief Complaint/Hosp Course Assessment/Plan - Acute on chronic encephalopathy, resolved. MRI of the brain is negative for any acute stroke. Patient's neurological status is at his baseline. - S/p sepsis Dr. Benjy lang is following in infection disease consultation. - HCAP. Status post treatment - Chronic respiratory failure with tracheostomy, currently on T-piece. Dr. Freitas is following in pulmonology consultation - End-stage renal disease on hemodialysis. Continue hemodialysis per nephrology. Dr. Sales is following in nephrology consultation. - Hypertension. Continue metoprolol and hydralazine. - History of nontraumatic intracranial bleed, status post craniotomy. - Possible seizure disorder. Continue Keppra. - Diabetes. Continue Levemir and NovoLog per mild algorithm sliding scale. - Anemia of chronic kidney disease. Awaits [facility]pc facility placement Further recommendations based on clinical course. Plan of care discussed with Dr. Godinez. Problems: Subjective 24 Hr Interval Summary Free Text/Dictation Patient is status post hemodialysis, remains hemodynamically stable, awake. Exam/Review of Systems Vital Signs Vitals Vital Signs Date Time Temp Pulse Resp B/P Pulse Ox O2 Delivery O2 Flow Rate FiO2 09/24/16 18:36 5.0 28 09/24/16 16:45 84 09/24/16 16:45 16 09/24/16 16:36 97 Aerosol T Tube 09/24/16 07:43 97.4 134/63 Intake and Output 09/23/16 09/23/16 09/24/16 15:00 23:00 07:00 Intake Total 330 ml 660 ml Balance 330 ml 660 ml Exam Constitutional: lethargic Psych: no complaints Head: atraumatic, normocephalic Eyes: nl conjunctiva ENMT: nl external ears & nose Neck: other (Tracheostomy), supple Respiratory: slightly diminished breath sounds, Cardiovascular: regular rate and rhythm Gastrointestinal: non-tender, other (G-tube), soft Musculoskeletal: nl extremities to inspection Extremities: normal pulses Neurological: confused Additional Comments Right chest permacath Results Result Diagram: 09/24/16 0510 09/24/16 0510 Results 24 hrs Laboratory Tests Test 09/23/16 20:55 09/24/16 00:18 09/24/16 05:10 09/24/16 06:07 Bedside Glucose 99 130 109 White Blood Count 5.1 Red Blood Count 2.84 L Hemoglobin 8.3 L Hematocrit 26.7 L Mean Corpuscular Volume 94.0 Mean Corpuscular Hemoglobin 29.2 Mean Corpuscular Hemoglobin Concent 31.1 L Red Cell Distribution Width 17.1 H Platelet Count 364 Mean Platelet Volume 9.4 Neutrophils % 63.3 Lymphocytes % 19.5 Monocytes % 7.2 Eosinophils % 8.8 H Basophils % 0.4 Nucleated Red Blood Cells % 0.0 Neutrophils # 3.2 Lymphocytes # 1.0 Monocytes # 0.4 Eosinophils # 0.5 Basophils # 0.0 Nucleated Red Blood Cells # 0.0 Sodium Level 139 Potassium Level 4.2 Chloride Level 100 Carbon Dioxide Level 25 Anion Gap 18 H Blood Urea Nitrogen 102 H Creatinine 5.15 H Glucose Level 99 Calcium Level 10.5 H Test 09/24/16 12:11 09/24/16 17:48 Bedside Glucose 144 139 Medications Medications Current Medications Amlodipine Besylate (Norvasc) 5 mg DAILY GTB Last administered on 09/23/16 08: 26; Admin Dose 5 MG; Start 08/30/16 at 09:00 Clonidine (Catapres) 0.1 mg DAILY PRN GTB ELEVATED SYSTOLIC BP; Start 08/29/16 at 23:00 Doxazosin Mesylate (Cardura) 2 mg QHS GTB Last administered on 09/23/16 20:53 ; Admin Dose 2 MG; Start 08/30/16 at 21:00 Folic Acid (Folic Acid) 1 mg DAILY GTB Last administered on 09/24/16 08:46; Admin Dose 1 MG; Start 08/30/16 at 09:00 Hydralazine HCl (Apresoline) 50 mg Q8 GTB Last administered on 09/24/16 06:10 ; Admin Dose 50 MG; Start 08/30/16 at 06:00 Levetiracetam (Keppra Liquid) 500 mg BID GTB Last administered on 09/24/16 08: 46; Admin Dose 500 MG; Start 08/30/16 at 09:00 Metoprolol Tartrate (Lopressor) 25 mg BID GTB Last administered on 09/23/16 20 :53; Admin Dose 25 MG; Start 08/30/16 at 09:00 Multivit/Ca Carb/ B Cmplx/FA/Prenat (Leah-Juan Jose) 1 tab DAILY GTB Last administered on 09/24/16 08:46; Admin Dose 1 TAB; Start 08/30/16 at 09:00 Ondansetron HCl (Zofran Tab) 4 mg Q6H PRN GTB NAUSEA AND/OR VOMITING; Start at 23:00 Senna (Senokot) 1 tab DAILY GTB Last administered on 09/24/16 08:46; Admin Dose 1 TAB; Start 08/30/16 at 09:00 Zolpidem Tartrate (Ambien) 5 mg QHS PRN GTB INSOMNIA; Start 08/29/16 at 23:00 Lansoprazole (Prevacid) 30 mg DAILY@06 GTB Last administered on 09/24/16 06:06 ; Admin Dose 30 MG; Start 08/30/16 at 06:00 Acetaminophen (Tylenol Liquid) 650 mg Q4H PRN GTB PAIN AND OR ELEVATED TEMP Last administered on 09/13/16 09:35; Admin Dose 650 MG; Start 08/29/16 at 23:00 Insulin Aspart (Novolog Insulin Pen) NOVOLOG *MILD* ALGORI... Q6 SC Last administered on 09/24/16 12:25; Admin Dose 1 UNIT; Start 08/30/16 at 00:00 Miscellaneous Information 1 ea NOTE XX ; Start 08/31/16 at 07:00 Glucose (Glutose) 15 gm Q15M PRN PO DECREASED GLUCOSE; Start 08/31/16 at 07:00 Glucose (Glutose) 22.5 gm Q15M PRN PO DECREASED GLUCOSE; Start 08/31/16 at 07: 00 Dextrose (D50w Syringe) 25 ml Q15M PRN IV DECREASED GLUCOSE Last administered on 09/20/16 06:33; Admin Dose 25 ML; Start 08/31/16 at 07:00 Dextrose (D50w Syringe) 50 ml Q15M PRN IV DECREASED GLUCOSE; Start 08/31/16 at 07:00 Glucagon (Glucagen) 1 mg Q15M PRN IM DECREASED GLUCOSE; Start 08/31/16 at 07:00 Glucose (Glutose) 15 gm Q15M PRN BUCCAL DECREASED GLUCOSE; Start 08/31/16 at 07 :00 Bacitracin/ Polymyxin B Sulfate (Ak-Poly-Anais Oph Oint) 1 applic BID BOTH EYES Last administered on 09/24/16 08:46; Admin Dose 1 APPLIC; Start 09/08/16 at 12: 00 Insulin Detemir (Levemir) 9 unit HS SC Last administered on 09/23/16 20:58; Admin Dose 9 UNIT; Start 09/20/16 at 21:00 NOELLE JIMENEZ September 24, 2016 19:27
[2016-09-24] MEDS: DOXAZOSIN 2 MG TAB GTB SCH (20:16)
[2016-09-24] MEDS: INSULIN DETEMIR [LEVEMIR] 3ML CART SC SCH (20:24)
[2016-09-25] MEDS: INSULIN ASPART [NOVOLOG] 3 ML PEN SC SCH ×5 (06:00→23:38)
[2016-09-25] MEDS: LANSOPRAZOLE 30 MG CAP GTB SCH (06:15)
[2016-09-25] MEDS: LEVALBUTEROL (NEB) 0.63 MG/3 ML AMP NEB SCH ×4 (07:46→20:42)
[2016-09-25 07:49] VITALS: BP 127/60; RESP 19
--- NOTE | 2016-09-25 09:11 | PN ---
DATE: 09/25/2016 SUBJECTIVE: The patient is stable. Had hemodialysis yesterday, tolerated it well with 2 L removed. No other events noted. OBJECTIVE: VITAL SIGNS: Blood pressure is 127/60, respiratory rate is 19, pulse 80, temperature 96.6. HEENT: Head is normocephalic. NECK: Supple. HEART: Regular rate. LUNGS: Show diminished breath sounds at the base. ABDOMEN: Soft, nontender to palpation. No rebound or guarding. EXTREMITIES: Negative for clubbing, cyanosis, no edema. DERMATOLOGIC: No rashes. MUSCULOSKELETAL: No joint effusions. NEUROLOGIC: No change in exam. MEDICATIONS: The patient's medications have been reviewed. LABORATORY DATA: Has been reviewed. No new labs. ASSESSMENT AND PLAN: 1. End-stage renal disease. Plan for hemodialysis tomorrow for 3 hours on a 3K bath, calcium 3.5. 2. Anemia. Continue to monitor hemoglobin and hematocrit levels. Continue Epogen. 3. Mineral bone disorder. Continue to monitor calcium and phosphate binders. 4. Hypertension. Continue current blood pressure regimen. 5. Sepsis secondary to pneumonia. The patient has completed an antibiotic course. 6. Chronic respiratory status post tracheostomy, currently stable. 7. Diabetes. Continue current insulin regimen. Continue Accu-Cheks. 8. Chronic encephalopathy. No change. 9. Seizure disorder. Continue current medical management. 10. History of intracranial bleed. Dictated By: MARYURI WALLER/FRANCES Conf#: [id number] DID#: [id number]
[2016-09-25] MEDS: FOLIC ACID 1 MG TAB GTB SCH (09:14)
[2016-09-25] MEDS: MULTIVIT/CA CARB/B CMPLX/FA TAB GTB SCH (09:14)
[2016-09-25] MEDS: LEVETIRACETAM (100 MG/ML) 5ML CUP GTB SCH ×2 (09:14→20:31)
[2016-09-25] MEDS: SEVELAMER CARBONATE 0.8 GM PKT GTB SCH ×3 (09:14→18:33)
[2016-09-25] MEDS: SENNA TAB GTB SCH (09:14)
[2016-09-25] MEDS: METOPROLOL 25 MG TAB GTB SCH ×2 (09:15→20:31)
[2016-09-25] MEDS: BACITRACIN/POLYMYX 3.5 GM OPH OINT BOTH EYES SCH ×2 (09:16→20:31)
[2016-09-25] MEDS: AMLODIPINE 5 MG TAB GTB SCH (09:30)
--- NOTE | 2016-09-25 13:12 | CONS ---
Date/Time of Note Date/Time of Note DATE: 09/25/16 TIME: 13:09 Assessment/Plan Assessment/Plan Chief Complaint/Hosp Course - sepsis due to HCAP; procalcitonin 0.93 - resolved - HCAP due to pseudomonas per resp cx on 08/29/16 & 09/13/16 (now intermediate sensitivity to Cefepime) - treated with Cefepime, then Meropenem. - Chronic respiratory failure with trach - G tube dependent - h/o intracranial bleed s/p craniotomy - ESRD on HD - hyponatremia - improved - T2DM - Hgb A1c 4.8% 08/08/16 per SNF records - HTN associated with DM - anemia of CKD - thrombocytosis - resolved - BPH - Hx prostate CA per SNF records ([facility]) - acute on chronic encephalopathy - MRI brain 09/12/16 showed no acute infarct; improving - fever due to persistent pseudomonas -resolved - elevated 1, 8-Skue-V-glucan Note: Pt took Cefepime (08/29/16-09/13/16), Caspofungin (09/13/16-09/16/16) and Meropenem (09/13/16-09/20/16) Recommendations: - Monitor off abx - DC planning in progress; awaiting SNF placement - Will sign off. Please re-consult PRN. Management d/w RN Romelia, TIRE RECAPPER Nadia and Dr. Burleson Problems: Consultation Date/Type/Reason Admit Date/Time Aug 29, 2016 at 16:21 Initial Consult Date 08/31/16 Type of Consultation: Infectious Disease Referring Provider: CANDY JUAREZ 24 HR Interval Summary Free Text/Dictation No new issues; still awaiting SNF placement per d/w nursing staff. Unable to perform ROS as pt is sleeping and non-verbal at baseline. Subjective hx not possible: pt non-verbal Exam/Review of Systems Vital Signs Vitals Vital Signs Date Time Temp Pulse Resp B/P Pulse Ox O2 Delivery O2 Flow Rate FiO2 09/25/16 11:40 99 5.0 28 09/25/16 11:40 72 20 Aerosol T Tube 09/25/16 07:49 96.6 127/60 Intake and Output 09/24/16 09/24/16 09/25/16 15:00 23:00 07:00 Intake Total 1060 ml 540 ml Output Total 2400 ml Balance -1340 ml 540 ml Exam Constitutional: asleep, well developed Head: atraumatic, normocephalic Neck: other (trach in place on T-piece) Respiratory: CTA anteriorly, other (Right chest wall HD catheter intact) Cardiovascular: regular rate and rhythm Gastrointestinal: bowel sounds (present), other (GT intact with tube feeds), soft Extremities: other (atrophy noted; RUE AVF +bruit/thrill; Left hand HL with no e/o infection) Neurological: asleep Skin: nl turgor, other (wounds- see nurse note and photos in chart for details) Results Result Diagram: 09/24/16 0510 09/24/16 0510 Results 24 hrs Laboratory Tests Test 09/24/16 17:48 09/24/16 20:19 09/25/16 00:00 09/25/16 06:14 Bedside Glucose 139 126 90 61 L Test 09/25/16 06:39 09/25/16 06:54 09/25/16 11:54 Bedside Glucose 86 104 82 Medications Medications Current Medications Amlodipine Besylate (Norvasc) 5 mg DAILY GTB Last administered on 09/25/16 09: 30; Admin Dose 5 MG; Start 08/30/16 at 09:00 Clonidine (Catapres) 0.1 mg DAILY PRN GTB ELEVATED SYSTOLIC BP; Start 08/29/16 at 23:00 Doxazosin Mesylate (Cardura) 2 mg QHS GTB Last administered on 09/24/16 20:16 ; Admin Dose 2 MG; Start 08/30/16 at 21:00 Folic Acid (Folic Acid) 1 mg DAILY GTB Last administered on 09/25/16 09:14; Admin Dose 1 MG; Start 08/30/16 at 09:00 Hydralazine HCl (Apresoline) 50 mg Q8 GTB Last administered on 09/24/16 22:21 ; Admin Dose 50 MG; Start 08/30/16 at 06:00 Levetiracetam (Keppra Liquid) 500 mg BID GTB Last administered on 09/25/16 09: 14; Admin Dose 500 MG; Start 08/30/16 at 09:00 Metoprolol Tartrate (Lopressor) 25 mg BID GTB Last administered on 09/25/16 09 :15; Admin Dose 25 MG; Start 08/30/16 at 09:00 Multivit/Ca Carb/ B Cmplx/FA/Prenat (Leah-Juan Jose) 1 tab DAILY GTB Last administered on 09/25/16 09:14; Admin Dose 1 TAB; Start 08/30/16 at 09:00 Ondansetron HCl (Zofran Tab) 4 mg Q6H PRN GTB NAUSEA AND/OR VOMITING; Start at 23:00 Senna (Senokot) 1 tab DAILY GTB Last administered on 09/25/16 09:14; Admin Dose 1 TAB; Start 08/30/16 at 09:00 Zolpidem Tartrate (Ambien) 5 mg QHS PRN GTB INSOMNIA; Start 08/29/16 at 23:00 Lansoprazole (Prevacid) 30 mg DAILY@06 GTB Last administered on 09/25/16 06:15 ; Admin Dose 30 MG; Start 08/30/16 at 06:00 Acetaminophen (Tylenol Liquid) 650 mg Q4H PRN GTB PAIN AND OR ELEVATED TEMP Last administered on 09/13/16 09:35; Admin Dose 650 MG; Start 08/29/16 at 23:00 Insulin Aspart (Novolog Insulin Pen) NOVOLOG *MILD* ALGORI... Q6 SC Last administered on 09/24/16 12:25; Admin Dose 1 UNIT; Start 08/30/16 at 00:00 Miscellaneous Information 1 ea NOTE XX ; Start 08/31/16 at 07:00 Glucose (Glutose) 15 gm Q15M PRN PO DECREASED GLUCOSE; Start 08/31/16 at 07:00 Glucose (Glutose) 22.5 gm Q15M PRN PO DECREASED GLUCOSE; Start 08/31/16 at 07: 00 Dextrose (D50w Syringe) 25 ml Q15M PRN IV DECREASED GLUCOSE Last administered on 09/20/16 06:33; Admin Dose 25 ML; Start 08/31/16 at 07:00 Dextrose (D50w Syringe) 50 ml Q15M PRN IV DECREASED GLUCOSE; Start 08/31/16 at 07:00 Glucagon (Glucagen) 1 mg Q15M PRN IM DECREASED GLUCOSE; Start 08/31/16 at 07:00 Glucose (Glutose) 15 gm Q15M PRN BUCCAL DECREASED GLUCOSE; Start 08/31/16 at 07 :00 Bacitracin/ Polymyxin B Sulfate (Ak-Poly-Anais Oph Oint) 1 applic BID BOTH EYES Last administered on 09/25/16 09:16; Admin Dose 1 APPLIC; Start 09/08/16 at 12: 00 Insulin Detemir (Levemir) 9 unit HS SC Last administered on 09/24/16 20:24; Admin Dose 9 UNIT; Start 09/20/16 at 21:00 NOVA HACKETT NP September 25, 2016 13:12
--- NOTE | 2016-09-25 16:39 | PN ---
Date/Time of Note Date/Time of Note DATE: 09/25/16 TIME: 16:32 Assessment/Plan VTE Prophylaxis VTE Prophylaxis Intervention: SCD's Lines/Catheters [facility] Central Line Central line still needed: Yes Urinary Cath still in place: No Assessment/Plan Chief Complaint/Hosp Course Remains hemodynamically stable, awake, tracheostomy to T-tube, no distress. Assessment/Plan - End-stage renal disease on hemodialysis. Continue hemodialysis per nephrology. Dr. Sales is following in nephrology consultation. - Acute on chronic encephalopathy, resolved. MRI of the brain is negative for any acute stroke. Patient's neurological status is at his baseline. - S/p sepsis Dr. Benjy lang is following in infection disease consultation. - HCAP. Status post treatment - Chronic respiratory failure with tracheostomy, currently on T-piece. Dr. Freitas is following in pulmonology consultation - Hypertension. Continue metoprolol and hydralazine. - History of nontraumatic intracranial bleed, status post craniotomy. - Possible seizure disorder. Continue Keppra. - Diabetes. Continue Levemir and NovoLog per mild algorithm sliding scale. - Anemia of chronic kidney disease. Awaits shelter facility placement Further recommendations based on clinical course. Plan of care discussed with Dr. Godinez. Problems: Exam/Review of Systems Vital Signs Vitals Vital Signs Date Time Temp Pulse Resp B/P Pulse Ox O2 Delivery O2 Flow Rate FiO2 09/25/16 15:57 98 5.0 28 09/25/16 15:57 71 18 Aerosol T Tube 09/25/16 07:49 96.6 127/60 Intake and Output 09/24/16 09/24/16 09/25/16 14:59 22:59 06:59 Intake Total 1060 ml 540 ml Output Total 2400 ml Balance -1340 ml 540 ml Exam Constitutional: lethargic Psych: no complaints Head: atraumatic, normocephalic Eyes: nl conjunctiva ENMT: nl external ears & nose Neck: other (Tracheostomy), supple Respiratory: slightly diminished breath sounds, Cardiovascular: regular rate and rhythm Gastrointestinal: non-tender, other (G-tube), soft Musculoskeletal: nl extremities to inspection Extremities: normal pulses Neurological: confused Additional Comments Right chest permacath Results Result Diagram: 09/24/16 0510 09/24/16 0510 Results 24 hrs Laboratory Tests Test 09/24/16 17:48 09/24/16 20:19 09/25/16 00:00 09/25/16 06:14 Bedside Glucose 139 126 90 61 L Test 09/25/16 06:39 09/25/16 06:54 09/25/16 11:54 Bedside Glucose 86 104 82 Medications Medications Current Medications Amlodipine Besylate (Norvasc) 5 mg DAILY GTB Last administered on 09/25/16 09: 30; Admin Dose 5 MG; Start 08/30/16 at 09:00 Clonidine (Catapres) 0.1 mg DAILY PRN GTB ELEVATED SYSTOLIC BP; Start 08/29/16 at 23:00 Doxazosin Mesylate (Cardura) 2 mg QHS GTB Last administered on 09/24/16 20:16 ; Admin Dose 2 MG; Start 08/30/16 at 21:00 Folic Acid (Folic Acid) 1 mg DAILY GTB Last administered on 09/25/16 09:14; Admin Dose 1 MG; Start 08/30/16 at 09:00 Hydralazine HCl (Apresoline) 50 mg Q8 GTB Last administered on 09/25/16 14:39 ; Admin Dose 50 MG; Start 08/30/16 at 06:00 Levetiracetam (Keppra Liquid) 500 mg BID GTB Last administered on 09/25/16 09: 14; Admin Dose 500 MG; Start 08/30/16 at 09:00 Metoprolol Tartrate (Lopressor) 25 mg BID GTB Last administered on 09/25/16 09 :15; Admin Dose 25 MG; Start 08/30/16 at 09:00 Multivit/Ca Carb/ B Cmplx/FA/Prenat (Leah-Juan Jose) 1 tab DAILY GTB Last administered on 09/25/16 09:14; Admin Dose 1 TAB; Start 08/30/16 at 09:00 Ondansetron HCl (Zofran Tab) 4 mg Q6H PRN GTB NAUSEA AND/OR VOMITING; Start at 23:00 Senna (Senokot) 1 tab DAILY GTB Last administered on 09/25/16 09:14; Admin Dose 1 TAB; Start 08/30/16 at 09:00 Zolpidem Tartrate (Ambien) 5 mg QHS PRN GTB INSOMNIA; Start 08/29/16 at 23:00 Lansoprazole (Prevacid) 30 mg DAILY@06 GTB Last administered on 09/25/16 06:15 ; Admin Dose 30 MG; Start 08/30/16 at 06:00 Acetaminophen (Tylenol Liquid) 650 mg Q4H PRN GTB PAIN AND OR ELEVATED TEMP Last administered on 09/13/16 09:35; Admin Dose 650 MG; Start 08/29/16 at 23:00 Insulin Aspart (Novolog Insulin Pen) NOVOLOG *MILD* ALGORI... Q6 SC Last administered on 09/24/16 12:25; Admin Dose 1 UNIT; Start 08/30/16 at 00:00 Miscellaneous Information 1 ea NOTE XX ; Start 08/31/16 at 07:00 Glucose (Glutose) 15 gm Q15M PRN PO DECREASED GLUCOSE; Start 08/31/16 at 07:00 Glucose (Glutose) 22.5 gm Q15M PRN PO DECREASED GLUCOSE; Start 08/31/16 at 07: 00 Dextrose (D50w Syringe) 25 ml Q15M PRN IV DECREASED GLUCOSE Last administered on 09/20/16 06:33; Admin Dose 25 ML; Start 08/31/16 at 07:00 Dextrose (D50w Syringe) 50 ml Q15M PRN IV DECREASED GLUCOSE; Start 08/31/16 at 07:00 Glucagon (Glucagen) 1 mg Q15M PRN IM DECREASED GLUCOSE; Start 08/31/16 at 07:00 Glucose (Glutose) 15 gm Q15M PRN BUCCAL DECREASED GLUCOSE; Start 08/31/16 at 07 :00 Bacitracin/ Polymyxin B Sulfate (Ak-Poly-Anais Oph Oint) 1 applic BID BOTH EYES Last administered on 09/25/16 09:16; Admin Dose 1 APPLIC; Start 09/08/16 at 12: 00 Insulin Detemir (Levemir) 9 unit HS SC Last administered on 09/24/16 20:24; Admin Dose 9 UNIT; Start 09/20/16 at 21:00 NOELLE JIMENEZ September 25, 2016 16:39
[2016-09-25 19:44] VITALS: BP 163/71; RESP 20
[2016-09-25] MEDS: DOXAZOSIN 2 MG TAB GTB SCH (20:30)
[2016-09-25] MEDS: INSULIN DETEMIR [LEVEMIR] 3ML CART SC SCH (20:37)
[2016-09-25 21:53] VITALS: BP 100/55
[2016-09-26] VITALS (11 sets, daily range): BP systolic 107–173; BP diastolic 52–70; PULSE 69–80; RESP 18–20
[2016-09-26] MEDS: INSULIN ASPART [NOVOLOG] 3 ML PEN SC SCH ×3 (05:30→17:55)
[2016-09-26] MEDS: LANSOPRAZOLE 30 MG CAP GTB SCH (06:19)
[2016-09-26 06:34] LABS: CALCIUM 10.1 mg/dl (8.4-10.2); CREATININE 4.61 mg/dl (0.61-1.24); POTASSIUM 4.6 mmol/L (3.5-5.1)
[2016-09-26] MEDS: LEVALBUTEROL (NEB) 0.63 MG/3 ML AMP NEB SCH ×4 (07:55→20:07)
[2016-09-26] MEDS: MULTIVIT/CA CARB/B CMPLX/FA TAB GTB SCH (08:04)
[2016-09-26] MEDS: FOLIC ACID 1 MG TAB GTB SCH (08:04)
[2016-09-26] MEDS: SEVELAMER CARBONATE 0.8 GM PKT GTB SCH ×3 (08:04→17:51)
[2016-09-26] MEDS: LEVETIRACETAM (100 MG/ML) 5ML CUP GTB SCH ×2 (08:04→21:22)
[2016-09-26] MEDS: SENNA TAB GTB SCH (08:04)
[2016-09-26] MEDS: BACITRACIN/POLYMYX 3.5 GM OPH OINT BOTH EYES SCH ×2 (08:06→21:22)
--- NOTE | 2016-09-26 11:16 | PN ---
DATE: 09/26/2016 SUBJECTIVE: The patient is stable, no acute events noted. No fevers, chills, nausea, vomiting. OBJECTIVE: VITAL SIGNS: Blood pressure is 130/60, respiration 18, pulse 69, temperature 97.8. HEENT: Head is normocephalic. NECK: Supple. HEART: Regular rate. LUNGS: Show diminished breath sounds at the base. ABDOMEN: Soft, nontender to palpation. No rebound or guarding. EXTREMITIES: Negative for clubbing, cyanosis, no edema. DERMATOLOGIC: No rashes. MUSCULOSKELETAL: No joint effusions. NEUROLOGIC: No change in exam. MEDICATIONS: The patient's medications have been reviewed. LABORATORY DATA: Shows sodium 132, potassium 4.6, chloride 101, BUN 92, creatinine 4.61. ASSESSMENT 1. End stage renal disease. Plan for dialysis today for 3 hours. 2K bath, calcium ____ . 2. Anemia. Continue to monitor H and H levels. Will continue Epogen with hemodialysis. 3. Mineral bone disorder. Continue to monitor calcium and phosphorous levels. Continue phosphate bi nders. 4. Hypertension. Continue current blood pressure regimen. 5. Sepsis secondary to pneumonia. Patient completed antibiotic course. 6. Chronic respiratory failure. Status post trach, currently stable. 7. Diabetes. Continue current insulin regimen. 8. Chronic encephalopathy. No change. 9. Seizure disorder. Continue medical management. 10. History of intracranial bleed. Dictated By: MARYURI WALLER/FRANCES Conf#: [id number] DID#: [id number]
[2016-09-26] MEDS: AMLODIPINE 5 MG TAB GTB SCH (12:43)
[2016-09-26] MEDS: METOPROLOL 25 MG TAB GTB SCH ×2 (12:44→21:23)
--- NOTE | 2016-09-26 15:01 | PN ---
Date/Time of Note Date/Time of Note DATE: 09/26/16 TIME: 14:55 Assessment/Plan VTE Prophylaxis VTE Prophylaxis Intervention: SCD's Lines/Catheters IV [facility] (from [facility] Central Line Central line still needed: Yes Urinary Cath still in place: No Assessment/Plan Chief Complaint/Hosp Course Patient is comfortable on cool aerosol via T-tube, no distress. Awaits for a senior living facility placement, discussed with case management Kiana no bed today. Assessment/Plan - End-stage renal disease on hemodialysis. Continue hemodialysis per nephrology. Dr. Sales is following in nephrology consultation. - Acute on chronic encephalopathy, resolved. MRI of the brain is negative for any acute stroke. Patient's neurological status is at his baseline. - S/p sepsis Dr. Benjy lang is following in infection disease consultation. - HCAP. Status post treatment - Chronic respiratory failure with tracheostomy, currently on T-piece. Dr. Freitas is following in pulmonology consultation - Hypertension. Continue metoprolol and hydralazine. - History of nontraumatic intracranial bleed, status post craniotomy. - Possible seizure disorder. Continue Keppra. - Diabetes. Continue Levemir and NovoLog per mild algorithm sliding scale. - Anemia of chronic kidney disease. Awaits senior living facility placement Further recommendations based on clinical course. Plan of care discussed with Dr. Godinez. Problems: Exam/Review of Systems Vital Signs Vitals Vital Signs Date Time Temp Pulse Resp B/P Pulse Ox O2 Delivery O2 Flow Rate FiO2 09/26/16 14:37 71 153/69 09/26/16 12:06 18 98 Aerosol 5.0 28 T Tube 09/26/16 07:25 97.8 Exam Constitutional: lethargic Psych: no complaints Head: atraumatic, normocephalic Eyes: nl conjunctiva ENMT: nl external ears & nose Neck: other (Tracheostomy), supple Respiratory: slightly diminished breath sounds, Cardiovascular: regular rate and rhythm Gastrointestinal: non-tender, other (G-tube), soft Musculoskeletal: nl extremities to inspection Extremities: normal pulses Neurological: confused Additional Comments Right chest permacath Results Result Diagram: 09/24/16 0510 09/26/16 0528 Results 24 hrs Laboratory Tests Test 09/25/16 18:34 09/25/16 20:32 09/25/16 23:37 09/26/16 05:28 Bedside Glucose 95 93 126 Sodium Level 132 L Potassium Level 4.6 Chloride Level 101 Carbon Dioxide Level 22 Anion Gap 14 Blood Urea Nitrogen 92 H Creatinine 4.61 H Glucose Level 112 Calcium Level 10.1 Test 09/26/16 05:29 09/26/16 12:04 Bedside Glucose 120 104 Medications Medications Current Medications Amlodipine Besylate (Norvasc) 5 mg DAILY GTB Last administered on 09/26/16 12: 43; Admin Dose 5 MG; Start 08/30/16 at 09:00 Clonidine (Catapres) 0.1 mg DAILY PRN GTB ELEVATED SYSTOLIC BP; Start 08/29/16 at 23:00 Doxazosin Mesylate (Cardura) 2 mg QHS GTB Last administered on 09/25/16 20:30 ; Admin Dose 2 MG; Start 08/30/16 at 21:00 Folic Acid (Folic Acid) 1 mg DAILY GTB Last administered on 09/26/16 08:04; Admin Dose 1 MG; Start 08/30/16 at 09:00 Hydralazine HCl (Apresoline) 50 mg Q8 GTB Last administered on 09/26/16 14:41 ; Admin Dose 50 MG; Start 08/30/16 at 06:00 Levetiracetam (Keppra Liquid) 500 mg BID GTB Last administered on 09/26/16 08: 04; Admin Dose 500 MG; Start 08/30/16 at 09:00 Metoprolol Tartrate (Lopressor) 25 mg BID GTB Last administered on 09/26/16 12 :44; Admin Dose 25 MG; Start 08/30/16 at 09:00 Multivit/Ca Carb/ B Cmplx/FA/Prenat (Leah-Juan Jose) 1 tab DAILY GTB Last administered on 09/26/16 08:04; Admin Dose 1 TAB; Start 08/30/16 at 09:00 Ondansetron HCl (Zofran Tab) 4 mg Q6H PRN GTB NAUSEA AND/OR VOMITING; Start at 23:00 Senna (Senokot) 1 tab DAILY GTB Last administered on 09/26/16 08:04; Admin Dose 1 TAB; Start 08/30/16 at 09:00 Zolpidem Tartrate (Ambien) 5 mg QHS PRN GTB INSOMNIA; Start 08/29/16 at 23:00 Lansoprazole (Prevacid) 30 mg DAILY@06 GTB Last administered on 09/26/16 06:19 ; Admin Dose 30 MG; Start 08/30/16 at 06:00 Acetaminophen (Tylenol Liquid) 650 mg Q4H PRN GTB PAIN AND OR ELEVATED TEMP Last administered on 09/13/16 09:35; Admin Dose 650 MG; Start 08/29/16 at 23:00 Insulin Aspart (Novolog Insulin Pen) NOVOLOG *MILD* ALGORI... Q6 SC Last administered on 09/24/16 12:25; Admin Dose 1 UNIT; Start 08/30/16 at 00:00 Miscellaneous Information 1 ea NOTE XX ; Start 08/31/16 at 07:00 Glucose (Glutose) 15 gm Q15M PRN PO DECREASED GLUCOSE; Start 08/31/16 at 07:00 Glucose (Glutose) 22.5 gm Q15M PRN PO DECREASED GLUCOSE; Start 08/31/16 at 07: 00 Dextrose (D50w Syringe) 25 ml Q15M PRN IV DECREASED GLUCOSE Last administered on 09/20/16 06:33; Admin Dose 25 ML; Start 08/31/16 at 07:00 Dextrose (D50w Syringe) 50 ml Q15M PRN IV DECREASED GLUCOSE; Start 08/31/16 at 07:00 Glucagon (Glucagen) 1 mg Q15M PRN IM DECREASED GLUCOSE; Start 08/31/16 at 07:00 Glucose (Glutose) 15 gm Q15M PRN BUCCAL DECREASED GLUCOSE; Start 08/31/16 at 07 :00 Bacitracin/ Polymyxin B Sulfate (Ak-Poly-Anais Oph Oint) 1 applic BID BOTH EYES Last administered on 09/26/16 08:06; Admin Dose 1 APPLIC; Start 09/08/16 at 12: 00 Insulin Detemir (Levemir) 9 unit HS SC Last administered on 09/25/16 20:37; Admin Dose 9 UNIT; Start 09/20/16 at 21:00 NOELLE JIMENEZ September 26, 2016 15:01
--- NOTE | 2016-09-26 16:29 | CONS ---
Date/Time of Note Date/Time of Note DATE: 09/26/16 TIME: 16:29 Assessment/Plan Assessment/Plan Chief Complaint/Hosp Course - sepsis due to HCAP; procalcitonin 0.93 - resolved - HCAP due to pseudomonas per resp cx on 08/29/16 & 09/13/16 (now intermediate sensitivity to Cefepime) - treated with Cefepime, then Meropenem. - Chronic respiratory failure with trach - G tube dependent - h/o intracranial bleed s/p craniotomy - ESRD on HD - hyponatremia - improved - T2DM - Hgb A1c 4.8% 08/08/16 per SNF records - HTN associated with DM - anemia of CKD - thrombocytosis - resolved - BPH - Hx prostate CA per SNF records ([facility]) - acute on chronic encephalopathy - MRI brain 09/12/16 showed no acute infarct; improving - fever due to persistent pseudomonas -resolved - elevated 1, 0-Ieke-F-glucan Note: Pt took Cefepime (08/29/16-09/13/16), Caspofungin (09/13/16-09/16/16) and Meropenem (09/13/16-09/20/16) Recommendations: - Monitor off abx - DC planning in progress; awaiting SNF placement - Will sign off. Please re-consult PRN. Problems: Consultation Date/Type/Reason Admit Date/Time Aug 29, 2016 at 16:21 Initial Consult Date 08/31/16 Type of Consultation: Infectious Disease Referring Provider: CANDY JUAREZ Exam/Review of Systems Vital Signs Vitals Vital Signs Date Time Temp Pulse Resp B/P Pulse Ox O2 Delivery O2 Flow Rate FiO2 09/26/16 16:12 5.0 28 09/26/16 16:09 68 18 98 Aerosol T Tube 09/26/16 14:37 153/69 09/26/16 07:25 97.8 Exam Constitutional: non-verbal Psych: no complaints Head: atraumatic, normocephalic Eyes: EOMI Respiratory: clear to auscultation, normal air movement Cardiovascular: nl pulses, regular rate and rhythm Gastrointestinal: nl liver, spleen, non-tender, soft Results Result Diagram: 09/24/16 0510 09/26/16 0528 Results 24 hrs Laboratory Tests Test 09/25/16 18:34 09/25/16 20:32 09/25/16 23:37 09/26/16 05:28 Bedside Glucose 95 93 126 Sodium Level 132 L Potassium Level 4.6 Chloride Level 101 Carbon Dioxide Level 22 Anion Gap 14 Blood Urea Nitrogen 92 H Creatinine 4.61 H Glucose Level 112 Calcium Level 10.1 Test 09/26/16 05:29 09/26/16 12:04 Bedside Glucose 120 104 Medications Medications Current Medications Amlodipine Besylate (Norvasc) 5 mg DAILY GTB Last administered on 09/26/16 12: 43; Admin Dose 5 MG; Start 08/30/16 at 09:00 Clonidine (Catapres) 0.1 mg DAILY PRN GTB ELEVATED SYSTOLIC BP; Start 08/29/16 at 23:00 Doxazosin Mesylate (Cardura) 2 mg QHS GTB Last administered on 09/25/16 20:30 ; Admin Dose 2 MG; Start 08/30/16 at 21:00 Folic Acid (Folic Acid) 1 mg DAILY GTB Last administered on 09/26/16 08:04; Admin Dose 1 MG; Start 08/30/16 at 09:00 Hydralazine HCl (Apresoline) 50 mg Q8 GTB Last administered on 09/26/16 14:41 ; Admin Dose 50 MG; Start 08/30/16 at 06:00 Levetiracetam (Keppra Liquid) 500 mg BID GTB Last administered on 09/26/16 08: 04; Admin Dose 500 MG; Start 08/30/16 at 09:00 Metoprolol Tartrate (Lopressor) 25 mg BID GTB Last administered on 09/26/16 12 :44; Admin Dose 25 MG; Start 08/30/16 at 09:00 Multivit/Ca Carb/ B Cmplx/FA/Prenat (Leah-Juan Jose) 1 tab DAILY GTB Last administered on 09/26/16 08:04; Admin Dose 1 TAB; Start 08/30/16 at 09:00 Ondansetron HCl (Zofran Tab) 4 mg Q6H PRN GTB NAUSEA AND/OR VOMITING; Start at 23:00 Senna (Senokot) 1 tab DAILY GTB Last administered on 09/26/16 08:04; Admin Dose 1 TAB; Start 08/30/16 at 09:00 Zolpidem Tartrate (Ambien) 5 mg QHS PRN GTB INSOMNIA; Start 08/29/16 at 23:00 Lansoprazole (Prevacid) 30 mg DAILY@06 GTB Last administered on 09/26/16 06:19 ; Admin Dose 30 MG; Start 08/30/16 at 06:00 Acetaminophen (Tylenol Liquid) 650 mg Q4H PRN GTB PAIN AND OR ELEVATED TEMP Last administered on 09/13/16 09:35; Admin Dose 650 MG; Start 08/29/16 at 23:00 Insulin Aspart (Novolog Insulin Pen) NOVOLOG *MILD* ALGORI... Q6 SC Last administered on 09/24/16 12:25; Admin Dose 1 UNIT; Start 08/30/16 at 00:00 Miscellaneous Information 1 ea NOTE XX ; Start 08/31/16 at 07:00 Glucose (Glutose) 15 gm Q15M PRN PO DECREASED GLUCOSE; Start 08/31/16 at 07:00 Glucose (Glutose) 22.5 gm Q15M PRN PO DECREASED GLUCOSE; Start 08/31/16 at 07: 00 Dextrose (D50w Syringe) 25 ml Q15M PRN IV DECREASED GLUCOSE Last administered on 09/20/16 06:33; Admin Dose 25 ML; Start 08/31/16 at 07:00 Dextrose (D50w Syringe) 50 ml Q15M PRN IV DECREASED GLUCOSE; Start 08/31/16 at 07:00 Glucagon (Glucagen) 1 mg Q15M PRN IM DECREASED GLUCOSE; Start 08/31/16 at 07:00 Glucose (Glutose) 15 gm Q15M PRN BUCCAL DECREASED GLUCOSE; Start 08/31/16 at 07 :00 Bacitracin/ Polymyxin B Sulfate (Ak-Poly-Anais Oph Oint) 1 applic BID BOTH EYES Last administered on 09/26/16 08:06; Admin Dose 1 APPLIC; Start 09/08/16 at 12: 00 Insulin Detemir (Levemir) 9 unit HS SC Last administered on 09/25/16 20:37; Admin Dose 9 UNIT; Start 09/20/16 at 21:00 DIPAK PATRICIA MD September 26, 2016 16:29
[2016-09-26] MEDS: INSULIN DETEMIR [LEVEMIR] 3ML CART SC SCH (20:42)
[2016-09-26] MEDS: DOXAZOSIN 2 MG TAB GTB SCH (21:23)
[2016-09-27] MEDS: INSULIN ASPART [NOVOLOG] 3 ML PEN SC SCH ×4 (05:41→18:00)
[2016-09-27] MEDS: LANSOPRAZOLE 30 MG CAP GTB SCH (05:41)
[2016-09-27 07:38] VITALS: BP 116/58; RESP 18
[2016-09-27] MEDS: LEVALBUTEROL (NEB) 0.63 MG/3 ML AMP NEB SCH ×4 (08:10→20:12)
[2016-09-27] MEDS: AMLODIPINE 5 MG TAB GTB SCH (09:00)
--- NOTE | 2016-09-27 10:02 | PN ---
DATE: 09/27/2016 SUBJECTIVE: The patient had hemodialysis yesterday, tolerated it well with 2.5 liters removed. No other events noted. OBJECTIVE: VITAL SIGNS: Blood pressure is currently 116/58, respiration 18, pulse 72, temperature 97.7. HEENT: Head is normocephalic. NECK: Supple. HEART: Regular rate. LUNGS: Show diminished breath sounds at the bases. ABDOMEN: Soft, nontender to palpation. No rebound or guarding. EXTREMITIES: Negative for clubbing, cyanosis. No edema. DERMATOLOGIC: No rashes. MUSCULOSKELETAL: No joint effusions. NEUROLOGIC: No change in exam. MEDICATIONS: The patient's medications have been reviewed. LABORATORY DATA: Has been reviewed. No new labs. ASSESSMENT AND PLAN: 1. End-stage renal disease. The patient had hemodialysis yesterday, tolerated it well. Plan for d ialysis tomorrow. 2. Anemia. Continue to monitor hemoglobin and hematocrit levels. Continue Epogen with hemodialysi s. 3. Mineral bone disorder. Continue to monitor calcium and phosphorus levels. Continue phosphate b inders. 4. Hypertension. Continue current blood pressure regimen. 5. Sepsis secondary to pneumonia. The patient completed antibiotic course. 6. Chronic respiratory failure, status post tracheostomy, currently stable. 7. Diabetes. Continue current insulin regimen. 8. Chronic encephalopathy. No change. 9. Seizure disorder. Continue current medical management. 10. History of intracranial bleed. Dictated By: MARYURI WALLER/FRANCES Conf#: [id number] DID#: [id number]
[2016-09-27] MEDS: LEVETIRACETAM (100 MG/ML) 5ML CUP GTB SCH ×2 (11:05→21:39)
[2016-09-27] MEDS: SEVELAMER CARBONATE 0.8 GM PKT GTB SCH ×3 (11:08→18:00)
[2016-09-27] MEDS: METOPROLOL 25 MG TAB GTB SCH ×2 (11:10→21:39)
[2016-09-27] MEDS: SENNA TAB GTB SCH (11:11)
[2016-09-27] MEDS: BACITRACIN/POLYMYX 3.5 GM OPH OINT BOTH EYES SCH ×2 (11:11→21:38)
[2016-09-27] MEDS: MULTIVIT/CA CARB/B CMPLX/FA TAB GTB SCH (11:11)
[2016-09-27] MEDS: FOLIC ACID 1 MG TAB GTB SCH (11:11)
--- NOTE | 2016-09-27 11:31 | PN ---
Date/Time of Note Date/Time of Note DATE: 09/27/16 TIME: 11:21 Assessment/Plan VTE Prophylaxis VTE Prophylaxis Intervention: other Lines/Catheters [facility] Type (from [email or web address] Central Line Central line still needed: Yes Urinary Cath still in place: No Assessment/Plan Assessment/Plan - End-stage renal disease on hemodialysis. Continue hemodialysis per nephrology. Dr. Sales is following in nephrology consultation. - Acute on chronic encephalopathy, resolved. MRI of the brain is negative for any acute stroke. Patient's neurological status is at his baseline. - S/p sepsis Dr. Benjy lang is following in infection disease consultation. - HCAP. Status post treatment - Chronic respiratory failure with tracheostomy, currently on T-piece. Dr. Freitas is following in pulmonology consultation - Hypertension. Continue metoprolol and hydralazine. - History of nontraumatic intracranial bleed, status post craniotomy. - Possible seizure disorder. Continue Keppra. - Diabetes. Continue Levemir and NovoLog per mild algorithm sliding scale. - Anemia of chronic kidney disease. Awaits long-term facility placement Further recommendations based on clinical course. Plan of care discussed with Dr. Godinez. Subjective 24 Hr Interval Summary Free Text/Dictation nad, afebrile, remains on cool aerosol via T-tube. Awaits for a long-term facility placement , dw staff Subjective hx not possible: pt non-verbal Constitutional: requiring O2 Exam/Review of Systems Vital Signs Vitals Vital Signs Date Time Temp Pulse Resp B/P Pulse Ox O2 Delivery O2 Flow Rate FiO2 09/27/16 08:10 66 18 99 Aerosol 5.0 28 T Tube 09/27/16 07:38 97.7 116/58 Intake and Output 09/26/16 09/26/16 09/27/16 15:00 23:00 07:00 Intake Total 300 ml Output Total 2500 ml Balance -2200 ml Exam Constitutional: alert, well developed Eyes: nl sclera Respiratory: diminished breath sounds, normal air movement Cardiovascular: nl pulses, regular rate and rhythm Gastrointestinal: non-tender, other, soft Musculoskeletal: muscle weakness Extremities: normal pulses Neurological: confused Skin: other Lymph: nontender Results Result Diagram: 09/24/16 0510 09/26/16 0528 Results 24 hrs Laboratory Tests Test 09/26/16 12:04 09/26/16 17:52 09/26/16 20:38 09/26/16 23:30 Bedside Glucose 104 141 107 112 Test 09/27/16 05:36 Bedside Glucose 101 Medications Medications Current Medications Amlodipine Besylate (Norvasc) 5 mg DAILY GTB Last administered on 09/26/16 12: 43; Admin Dose 5 MG; Start 08/30/16 at 09:00 Clonidine (Catapres) 0.1 mg DAILY PRN GTB ELEVATED SYSTOLIC BP; Start 08/29/16 at 23:00 Doxazosin Mesylate (Cardura) 2 mg QHS GTB Last administered on 09/26/16 21:23 ; Admin Dose 2 MG; Start 08/30/16 at 21:00 Folic Acid (Folic Acid) 1 mg DAILY GTB Last administered on 09/27/16 11:11; Admin Dose 1 MG; Start 08/30/16 at 09:00 Hydralazine HCl (Apresoline) 50 mg Q8 GTB Last administered on 09/27/16 05:41 ; Admin Dose 50 MG; Start 08/30/16 at 06:00 Levetiracetam (Keppra Liquid) 500 mg BID GTB Last administered on 09/27/16 11: 05; Admin Dose 500 MG; Start 08/30/16 at 09:00 Metoprolol Tartrate (Lopressor) 25 mg BID GTB Last administered on 09/27/16 11 :10; Admin Dose 25 MG; Start 08/30/16 at 09:00 Multivit/Ca Carb/ B Cmplx/FA/Prenat (Leah-Juan Jose) 1 tab DAILY GTB Last administered on 09/27/16 11:11; Admin Dose 1 TAB; Start 08/30/16 at 09:00 Ondansetron HCl (Zofran Tab) 4 mg Q6H PRN GTB NAUSEA AND/OR VOMITING; Start at 23:00 Senna (Senokot) 1 tab DAILY GTB Last administered on 09/27/16 11:11; Admin Dose 1 TAB; Start 08/30/16 at 09:00 Zolpidem Tartrate (Ambien) 5 mg QHS PRN GTB INSOMNIA; Start 08/29/16 at 23:00 Lansoprazole (Prevacid) 30 mg DAILY@06 GTB Last administered on 09/27/16 05:41 ; Admin Dose 30 MG; Start 08/30/16 at 06:00 Acetaminophen (Tylenol Liquid) 650 mg Q4H PRN GTB PAIN AND OR ELEVATED TEMP Last administered on 09/13/16 09:35; Admin Dose 650 MG; Start 08/29/16 at 23:00 Insulin Aspart (Novolog Insulin Pen) NOVOLOG *MILD* ALGORI... Q6 SC Last administered on 09/26/16 17:55; Admin Dose 1 UNIT; Start 08/30/16 at 00:00 Miscellaneous Information 1 ea NOTE XX ; Start 08/31/16 at 07:00 Glucose (Glutose) 15 gm Q15M PRN PO DECREASED GLUCOSE; Start 08/31/16 at 07:00 Glucose (Glutose) 22.5 gm Q15M PRN PO DECREASED GLUCOSE; Start 08/31/16 at 07: 00 Dextrose (D50w Syringe) 25 ml Q15M PRN IV DECREASED GLUCOSE Last administered on 09/20/16 06:33; Admin Dose 25 ML; Start 08/31/16 at 07:00 Dextrose (D50w Syringe) 50 ml Q15M PRN IV DECREASED GLUCOSE; Start 08/31/16 at 07:00 Glucagon (Glucagen) 1 mg Q15M PRN IM DECREASED GLUCOSE; Start 08/31/16 at 07:00 Glucose (Glutose) 15 gm Q15M PRN BUCCAL DECREASED GLUCOSE; Start 08/31/16 at 07 :00 Bacitracin/ Polymyxin B Sulfate (Ak-Poly-Anais Oph Oint) 1 applic BID BOTH EYES Last administered on 09/27/16 11:11; Admin Dose 1 APPLIC; Start 09/08/16 at 12: 00 Insulin Detemir (Levemir) 9 unit HS SC Last administered on 09/26/16 20:42; Admin Dose 9 UNIT; Start 09/20/16 at 21:00 CANDY JUAREZ September 27, 2016 11:31 CANDY JUAREZ September 27, 2016 11:31
[2016-09-27 12:42] VITALS: Ht 160 cm; Wt 89.0 kg
[2016-09-27 12:47] LABS: ADD SCAN DIFF NO
[2016-09-27 13:01] LABS: BASOPHILS % 0.2 % (0.0-2.0); EOSINOPHILS # 0.3 10^3/ul (0.0-0.5); EOSINOPHILS % 6.4 % (0.0-7.0); HEMATOCRIT 26.6 % (42.0-52.0); HEMOGLOBIN 8.2 g/dl (14.0-18.0); LYMPHOCYTES # 0.9 10^3/ul (0.8-2.9); LYMPHOCYTES % 19.1 % (15.0-51.0); MEAN CORPUSCULAR HEMOGLOBIN 29.8 pg (29.0-33.0); MEAN CORPUSCULAR HGB CONC 30.8 g/dl (32.0-37.0); MEAN CORPUSCULAR VOLUME 96.7 fl (82.0-101.0); MEAN PLATELET VOLUME 9.6 fl (7.4-10.4); MONOCYTE # 0.4 10^3/ul (0.3-0.9); MONOCYTES % 8.8 % (0.0-11.0); NEUTROPHILS % 65.1 % (39.0-77.0); PLATELET COUNT 259 10^3/UL (140-415); RED BLOOD COUNT 2.75 10^6/ul (4.70-6.10); RED CELL DISTRIBUTION WIDTH 17.3 % (11.5-14.5); WHITE BLOOD COUNT 4.6 10^3/ul (4.8-10.8)
[2016-09-27 19:29] VITALS: BP 115/56; RESP 18
[2016-09-27] MEDS: DOXAZOSIN 2 MG TAB GTB SCH (21:39)
[2016-09-27] MEDS: INSULIN DETEMIR [LEVEMIR] 3ML CART SC SCH (21:42)
[2016-09-28] VITALS (12 sets, daily range): BP systolic 130–165; BP diastolic 45–87; PULSE 70–88; RESP 20
[2016-09-28] MEDS: INSULIN ASPART [NOVOLOG] 3 ML PEN SC SCH ×4 (05:33→17:46)
[2016-09-28] MEDS: LANSOPRAZOLE 30 MG CAP GTB SCH (05:33)
[2016-09-28 06:07] LABS: CREATININE 4.21 mg/dl (0.61-1.24)
[2016-09-28 06:08] LABS: CALCIUM 9.7 mg/dl (8.4-10.2)
[2016-09-28] MEDS: LEVALBUTEROL (NEB) 0.63 MG/3 ML AMP NEB SCH ×4 (08:50→19:34)
--- NOTE | 2016-09-28 08:58 | PN ---
DATE: 09/28/2016 SUBJECTIVE: The patient is stable, currently on hemodialysis, tolerating well without any complicat ions. No fevers, chills, nausea, vomiting. OBJECTIVE: VITAL SIGNS: Blood pressure 116/65, respirations 20, pulse 73, temperature 97.0. HEENT: Head is normocephalic. NECK: Supple. HEART: Regular rate. LUNGS: Show diminished breath sounds at the base. ABDOMEN: Soft, nontender to palpation without rebound or guarding. EXTREMITIES: Negative for clubbing, cyanosis, no edema. DERMATOLOGIC: No rashes. MUSCULOSKELETAL: No joint effusions. NEUROLOGIC: No change in exam. MEDICATIONS: Reviewed. LABORATORY DATA: Showed sodium 134, potassium 4.0, chloride 94, BUN 8, creatinine 4.21. White coun t 4.6, hemoglobin 9.2, hematocrit 26.6, platelet count is 259. ASSESSMENT AND PLAN: 1. End-stage renal disease. The patient is currently on dialysis, tolerating well. Will continue, dialysis 3 hours, 2K bath, calcium 2.5. 2. Anemia. Continue to monitor hemoglobin and hematocrit levels. Continue Epogen. 3. Mineral bone disorder. Continue to monitor calcium and phosphorus levels. Continue phosphate bi nders. 4. Hypertension. Continue current blood pressure regimen. 5. Sepsis secondary to pneumonia. The patient is completing antibiotic course. 6. Chronic respiratory failure, status post tracheostomy, currently stable. Continue to monitor. 7. Diabetes, continue Accu-Cheks and sliding scale. 8. Chronic encephalopathy. No change. 9. Seizure disorder. Continue current medical management. 10. History of intracranial bleed. Dictated By: MARYURI WALLER/FRANCES Conf#: [id number] DID#: [id number]
[2016-09-28] MEDS: LEVETIRACETAM (100 MG/ML) 5ML CUP GTB SCH ×2 (10:10→20:24)
[2016-09-28] MEDS: MULTIVIT/CA CARB/B CMPLX/FA TAB GTB SCH (10:11)
[2016-09-28] MEDS: METOPROLOL 25 MG TAB GTB SCH ×2 (10:12→20:25)
[2016-09-28] MEDS: FOLIC ACID 1 MG TAB GTB SCH (10:12)
[2016-09-28] MEDS: SENNA TAB GTB SCH (10:13)
[2016-09-28] MEDS: SEVELAMER CARBONATE 0.8 GM PKT GTB SCH ×3 (10:14→17:50)
[2016-09-28] MEDS: AMLODIPINE 5 MG TAB GTB SCH (10:14)
[2016-09-28] MEDS: BACITRACIN/POLYMYX 3.5 GM OPH OINT BOTH EYES SCH ×2 (10:20→20:25)
[2016-09-28] MEDS: EPOETIN 10000 UNITS/1 ML INJ (ESRD) SC SCH (12:06)
--- NOTE | 2016-09-28 13:27 | PN ---
Date/Time of Note Date/Time of Note DATE: 09/28/16 TIME: 13:24 Assessment/Plan VTE Prophylaxis VTE Prophylaxis Intervention: SCD's Lines/Catheters IV C[facility]ter Type (from [facility]): permacath Urinary Cath still in place: No Assessment/Plan Chief Complaint/Hosp Course Assessment/Plan - End-stage renal disease on hemodialysis. Continue hemodialysis per nephrology. Dr. Sales is following in nephrology consultation. - Hypertension. Continue metoprolol and hydralazine. - Anemia of chronic disease, continue Epogen. - Acute on chronic encephalopathy, resolved. MRI of the brain is negative for any acute stroke. - S/p sepsis Dr. Benjy lang is following in infection disease consultation. - Status post HCAP. Status post treatment - Chronic respiratory failure with tracheostomy, currently on T-piece. Dr. Freitas is following in pulmonology consultation - History of nontraumatic intracranial bleed, status post craniotomy. - Possible seizure disorder. Continue Keppra. - Diabetes mellitus. Continue Levemir and NovoLog per mild algorithm sliding scale. Awaits longterm facility placement Further recommendations based on clinical course. Plan of care discussed with Dr. Godinez. Problems: Exam/Review of Systems Vital Signs Vitals Vital Signs Date Time Temp Pulse Resp B/P Pulse Ox O2 Delivery O2 Flow Rate FiO2 09/28/16 11:50 66 20 100 Aerosol 5.0 28 T Tube 09/28/16 07:37 97.0 161/65 Intake and Output 09/27/16 09/27/16 09/28/16 15:00 23:00 07:00 Intake Total 650 ml 660 ml Balance 650 ml 660 ml Exam Constitutional: Awake Psych: no complaints Head: atraumatic, normocephalic Eyes: nl conjunctiva ENMT: nl external ears & nose Neck: other (Tracheostomy), supple Respiratory: slightly diminished breath sounds, Cardiovascular: regular rate and rhythm Gastrointestinal: non-tender, other (G-tube), soft Musculoskeletal: nl extremities to inspection Extremities: normal pulses Neurological: confused Additional Comments Right chest permacath Results Result Diagram: 09/27/16 1210 09/28/16 0513 Results 24 hrs Laboratory Tests Test 09/27/16 17:54 09/27/16 21:41 09/28/16 00:04 09/28/16 05:27 Bedside Glucose 108 106 96 Sodium Level 134 L Potassium Level 4.0 Chloride Level 94 L Carbon Dioxide Level 28 Anion Gap 16 Blood Urea Nitrogen 82 H Creatinine 4.21 H Glucose Level 72 # Calcium Level 9.7 Test 09/28/16 05:32 09/28/16 12:17 09/28/16 12:23 Bedside Glucose 76 116 120 Medications Medications Current Medications Amlodipine Besylate (Norvasc) 5 mg DAILY GTB Last administered on 09/28/16 10: 14; Admin Dose 5 MG; Start 08/30/16 at 09:00 Clonidine (Catapres) 0.1 mg DAILY PRN GTB ELEVATED SYSTOLIC BP; Start 08/29/16 at 23:00 Doxazosin Mesylate (Cardura) 2 mg QHS GTB Last administered on 09/27/16 21:39 ; Admin Dose 2 MG; Start 08/30/16 at 21:00 Folic Acid (Folic Acid) 1 mg DAILY GTB Last administered on 09/28/16 10:12; Admin Dose 1 MG; Start 08/30/16 at 09:00 Hydralazine HCl (Apresoline) 50 mg Q8 GTB Last administered on 09/27/16 21:48 ; Admin Dose 50 MG; Start 08/30/16 at 06:00 Levetiracetam (Keppra Liquid) 500 mg BID GTB Last administered on 09/28/16 10: 10; Admin Dose 500 MG; Start 08/30/16 at 09:00 Metoprolol Tartrate (Lopressor) 25 mg BID GTB Last administered on 09/28/16 10 :12; Admin Dose 25 MG; Start 08/30/16 at 09:00 Multivit/Ca Carb/ B Cmplx/FA/Prenat (Leah-Juan Jose) 1 tab DAILY GTB Last administered on 09/28/16 10:11; Admin Dose 1 TAB; Start 08/30/16 at 09:00 Ondansetron HCl (Zofran Tab) 4 mg Q6H PRN GTB NAUSEA AND/OR VOMITING; Start at 23:00 Senna (Senokot) 1 tab DAILY GTB Last administered on 09/28/16 10:13; Admin Dose 1 TAB; Start 08/30/16 at 09:00 Zolpidem Tartrate (Ambien) 5 mg QHS PRN GTB INSOMNIA; Start 08/29/16 at 23:00 Lansoprazole (Prevacid) 30 mg DAILY@06 GTB Last administered on 09/28/16 05:33 ; Admin Dose 30 MG; Start 08/30/16 at 06:00 Acetaminophen (Tylenol Liquid) 650 mg Q4H PRN GTB PAIN AND OR ELEVATED TEMP Last administered on 09/13/16 09:35; Admin Dose 650 MG; Start 08/29/16 at 23:00 Insulin Aspart (Novolog Insulin Pen) NOVOLOG *MILD* ALGORI... Q6 SC Last administered on 09/26/16 17:55; Admin Dose 1 UNIT; Start 08/30/16 at 00:00 Miscellaneous Information 1 ea NOTE XX ; Start 08/31/16 at 07:00 Glucose (Glutose) 15 gm Q15M PRN PO DECREASED GLUCOSE; Start 08/31/16 at 07:00 Glucose (Glutose) 22.5 gm Q15M PRN PO DECREASED GLUCOSE; Start 08/31/16 at 07: 00 Dextrose (D50w Syringe) 25 ml Q15M PRN IV DECREASED GLUCOSE Last administered on 09/20/16 06:33; Admin Dose 25 ML; Start 08/31/16 at 07:00 Dextrose (D50w Syringe) 50 ml Q15M PRN IV DECREASED GLUCOSE; Start 08/31/16 at 07:00 Glucagon (Glucagen) 1 mg Q15M PRN IM DECREASED GLUCOSE; Start 08/31/16 at 07:00 Glucose (Glutose) 15 gm Q15M PRN BUCCAL DECREASED GLUCOSE; Start 08/31/16 at 07 :00 Bacitracin/ Polymyxin B Sulfate (Ak-Poly-Anais Oph Oint) 1 applic BID BOTH EYES Last administered on 09/28/16 10:20; Admin Dose 1 APPLIC; Start 09/08/16 at 12: 00 Insulin Detemir (Levemir) 9 unit HS SC Last administered on 09/27/16 21:42; Admin Dose 9 UNIT; Start 09/20/16 at 21:00 NOELLE JIMENEZ September 28, 2016 13:27
[2016-09-28] MEDS: DOXAZOSIN 2 MG TAB GTB SCH (20:24)
[2016-09-28] MEDS: INSULIN DETEMIR [LEVEMIR] 3ML CART SC SCH (20:29)
[2016-09-29] MEDS: INSULIN ASPART [NOVOLOG] 3 ML PEN SC SCH ×4 (05:27→17:40)
[2016-09-29] MEDS: LANSOPRAZOLE 30 MG CAP GTB SCH (05:27)
[2016-09-29 05:55] LABS: ADD SCAN DIFF NO
[2016-09-29 05:59] LABS: BASOPHILS % 0.3 % (0.0-2.0); EOSINOPHILS # 0.3 10^3/ul (0.0-0.5); EOSINOPHILS % 6.4 % (0.0-7.0); HEMATOCRIT 26.7 % (42.0-52.0); HEMOGLOBIN 8.6 g/dl (14.0-18.0); LYMPHOCYTES # 0.7 10^3/ul (0.8-2.9); LYMPHOCYTES % 17.9 % (15.0-51.0); MEAN CORPUSCULAR HEMOGLOBIN 29.6 pg (29.0-33.0); MEAN CORPUSCULAR HGB CONC 32.2 g/dl (32.0-37.0); MEAN CORPUSCULAR VOLUME 91.8 fl (82.0-101.0); MEAN PLATELET VOLUME 9.8 fl (7.4-10.4); MONOCYTE # 0.3 10^3/ul (0.3-0.9); MONOCYTES % 7.9 % (0.0-11.0); NEUTROPHIL # 2.6 10^3/ul (1.6-7.5); NEUTROPHILS % 67.2 % (39.0-77.0); PLATELET COUNT 224 10^3/UL (140-415); RED BLOOD COUNT 2.91 10^6/ul (4.70-6.10); RED CELL DISTRIBUTION WIDTH 16.8 % (11.5-14.5); WHITE BLOOD COUNT 3.9 10^3/ul (4.8-10.8)
[2016-09-29 06:28] LABS: CALCIUM 9.8 mg/dl (8.4-10.2); CREATININE 3.88 mg/dl (0.61-1.24); POTASSIUM 4.1 mmol/L (3.5-5.1)
[2016-09-29 07:37] VITALS: BP 135/64; RESP 18
[2016-09-29] MEDS: LEVALBUTEROL (NEB) 0.63 MG/3 ML AMP NEB SCH ×4 (07:48→19:32)
--- NOTE | 2016-09-29 10:09 | PN ---
DATE: 09/29/2016 SUBJECTIVE: The patient is stable. No events overnight. No fevers, chills, nausea, vomiting. OBJECTIVE: VITAL SIGNS: Blood pressure 135/64, respirations 18, pulse 74, temperature 97.5. HEENT: Head is normocephalic. NECK: Supple. HEART: Regular rate. LUNGS: Show diminished breath sounds at the bases. ABDOMEN: Soft, nontender to palpation. No rebound or guarding. EXTREMITIES: Negative for clubbing, cyanosis. No edema. DERMATOLOGIC: No rashes. MUSCULOSKELETAL: No joint effusions. NEUROLOGIC: No change in exam. MEDICATIONS: The patient's medications have been reviewed. LABORATORY DATA: Shows sodium 130, potassium 4.0, chloride 94, BUN 76, creatinine 3.88. White coun t is 3.9, hemoglobin 8.6, hematocrit 26.7, platelet count is 224. ASSESSMENT AND PLAN: 1. End-stage renal disease. Plan for hemodialysis tomorrow. 2. Anemia. Continue to monitor hemoglobin and hematocrit levels. Continue Epogen. 3. Mineral bone disorder. Continue to monitor calcium and phosphorus levels. Continue phosphate b inders. 4. Hyponatremia. Limit free water intake. 5. Hypertension. Continue current blood pressure regimen. 6. Sepsis secondary to pneumonia. The patient completed antibiotic course. 7. Chronic respiratory failure, status post tracheostomy, currently stable. Continue to monitor. 8. Diabetes. Continue Accu-Cheks and insulin sliding scale. 9. Chronic encephalopathy. No change. 10. Seizure disorder. Continue current medical management. 11. History of intracranial bleed. Dictated By: MARYURI WALLER/FRANCES Conf#: [id number] DID#: [id number]
[2016-09-29] MEDS: LEVETIRACETAM (100 MG/ML) 5ML CUP GTB SCH ×2 (10:33→21:29)
[2016-09-29] MEDS: MULTIVIT/CA CARB/B CMPLX/FA TAB GTB SCH (10:34)
[2016-09-29] MEDS: SEVELAMER CARBONATE 0.8 GM PKT GTB SCH ×3 (10:34→17:43)
[2016-09-29] MEDS: FOLIC ACID 1 MG TAB GTB SCH (10:35)
[2016-09-29] MEDS: METOPROLOL 25 MG TAB GTB SCH ×2 (10:35→21:30)
[2016-09-29] MEDS: SENNA TAB GTB SCH (10:35)
[2016-09-29] MEDS: AMLODIPINE 5 MG TAB GTB SCH (10:35)
[2016-09-29] MEDS: BACITRACIN/POLYMYX 3.5 GM OPH OINT BOTH EYES SCH ×2 (10:36→21:30)
--- NOTE | 2016-09-29 11:54 | PN ---
Date/Time of Note Date/Time of Note DATE: 09/29/16 TIME: 11:54 Assessment/Plan VTE Prophylaxis VTE Prophylaxis Intervention: other Lines/Catheters [facility] permacath Urinary Cath still in place: No Assessment/Plan Chief Complaint/Hosp Course - End-stage renal disease on hemodialysis. Continue hemodialysis per nephrology. Dr. Sales is following in nephrology consultation. - Hypertension. Continue metoprolol and hydralazine. - Anemia of chronic disease, continue Epogen. - Acute on chronic encephalopathy, resolved. MRI of the brain is negative for any acute stroke. - S/p sepsis Dr. Benjy lang is following in infection disease consultation. - Status post HCAP. Status post treatment - Chronic respiratory failure with tracheostomy, currently on T-piece. Dr. Freitas is following in pulmonology consultation - History of nontraumatic intracranial bleed, status post craniotomy. - Possible seizure disorder. Continue Keppra. - Diabetes mellitus. Continue Levemir and NovoLog per mild algorithm sliding scale. Awaits nursing home facility placement Problems: Subjective 24 Hr Interval Summary Free Text/Dictation Patient is doing well, trach in place, no complaints Exam/Review of Systems Vital Signs Vitals Vital Signs Date Time Temp Pulse Resp B/P Pulse Ox O2 Delivery O2 Flow Rate FiO2 09/29/16 11:46 67 20 100 Aerosol 28 T Tube 09/29/16 08:00 5.0 09/29/16 07:37 97.5 135/64 Intake and Output 09/28/16 09/28/16 09/29/16 15:00 23:00 07:00 Intake Total 200 ml Output Total 2700 ml Balance -2500 ml Exam Constitutional: well developed Head: atraumatic, normocephalic Neck: supple Respiratory: clear to auscultation Cardiovascular: regular rate and rhythm Gastrointestinal: non-tender, soft Extremities: normal pulses Results Result Diagram: 09/29/16 0500 09/29/16 0502 Results 24 hrs Laboratory Tests Test 09/28/16 12:17 09/28/16 12:23 09/28/16 17:45 09/28/16 20:26 Bedside Glucose 116 120 91 101 Test 09/28/16 23:18 09/29/16 05:00 09/29/16 05:02 09/29/16 05:25 Bedside Glucose 116 116 White Blood Count 3.9 L Red Blood Count 2.91 L Hemoglobin 8.6 L Hematocrit 26.7 L Mean Corpuscular Volume 91.8 Mean Corpuscular Hemoglobin 29.6 Mean Corpuscular Hemoglobin Concent 32.2 Red Cell Distribution Width 16.8 H Platelet Count 224 Mean Platelet Volume 9.8 Neutrophils % 67.2 Lymphocytes % 17.9 Monocytes % 7.9 Eosinophils % 6.4 Basophils % 0.3 Nucleated Red Blood Cells % 0.0 Neutrophils # 2.6 Lymphocytes # 0.7 L Monocytes # 0.3 Eosinophils # 0.3 Basophils # 0.0 Nucleated Red Blood Cells # 0.0 Sodium Level 130 L Potassium Level 4.1 Chloride Level 94 L Carbon Dioxide Level 27 Anion Gap 13 Blood Urea Nitrogen 76 H Creatinine 3.88 H Glucose Level 94 Calcium Level 9.8 Medications Medications Current Medications Amlodipine Besylate (Norvasc) 5 mg DAILY GTB Last administered on 09/29/16 10: 35; Admin Dose 5 MG; Start 08/30/16 at 09:00 Clonidine (Catapres) 0.1 mg DAILY PRN GTB ELEVATED SYSTOLIC BP; Start 08/29/16 at 23:00 Doxazosin Mesylate (Cardura) 2 mg QHS GTB Last administered on 09/28/16 20:24 ; Admin Dose 2 MG; Start 08/30/16 at 21:00 Folic Acid (Folic Acid) 1 mg DAILY GTB Last administered on 09/29/16 10:35; Admin Dose 1 MG; Start 08/30/16 at 09:00 Hydralazine HCl (Apresoline) 50 mg Q8 GTB Last administered on 09/29/16 05:27 ; Admin Dose 50 MG; Start 08/30/16 at 06:00 Levetiracetam (Keppra Liquid) 500 mg BID GTB Last administered on 09/29/16 10: 33; Admin Dose 500 MG; Start 08/30/16 at 09:00 Metoprolol Tartrate (Lopressor) 25 mg BID GTB Last administered on 09/29/16 10 :35; Admin Dose 25 MG; Start 08/30/16 at 09:00 Multivit/Ca Carb/ B Cmplx/FA/Prenat (Leah-Juan Jose) 1 tab DAILY GTB Last administered on 09/29/16 10:34; Admin Dose 1 TAB; Start 08/30/16 at 09:00 Ondansetron HCl (Zofran Tab) 4 mg Q6H PRN GTB NAUSEA AND/OR VOMITING; Start at 23:00 Senna (Senokot) 1 tab DAILY GTB Last administered on 09/29/16 10:35; Admin Dose 1 TAB; Start 08/30/16 at 09:00 Zolpidem Tartrate (Ambien) 5 mg QHS PRN GTB INSOMNIA; Start 08/29/16 at 23:00 Lansoprazole (Prevacid) 30 mg DAILY@06 GTB Last administered on 09/29/16 05:27 ; Admin Dose 30 MG; Start 08/30/16 at 06:00 Acetaminophen (Tylenol Liquid) 650 mg Q4H PRN GTB PAIN AND OR ELEVATED TEMP Last administered on 09/13/16 09:35; Admin Dose 650 MG; Start 08/29/16 at 23:00 Insulin Aspart (Novolog Insulin Pen) NOVOLOG *MILD* ALGORI... Q6 SC Last administered on 09/26/16 17:55; Admin Dose 1 UNIT; Start 08/30/16 at 00:00 Miscellaneous Information 1 ea NOTE XX ; Start 08/31/16 at 07:00 Glucose (Glutose) 15 gm Q15M PRN PO DECREASED GLUCOSE; Start 08/31/16 at 07:00 Glucose (Glutose) 22.5 gm Q15M PRN PO DECREASED GLUCOSE; Start 08/31/16 at 07: 00 Dextrose (D50w Syringe) 25 ml Q15M PRN IV DECREASED GLUCOSE Last administered on 09/20/16 06:33; Admin Dose 25 ML; Start 08/31/16 at 07:00 Dextrose (D50w Syringe) 50 ml Q15M PRN IV DECREASED GLUCOSE; Start 08/31/16 at 07:00 Glucagon (Glucagen) 1 mg Q15M PRN IM DECREASED GLUCOSE; Start 08/31/16 at 07:00 Glucose (Glutose) 15 gm Q15M PRN BUCCAL DECREASED GLUCOSE; Start 08/31/16 at 07 :00 Bacitracin/ Polymyxin B Sulfate (Ak-Poly-Anais Oph Oint) 1 applic BID BOTH EYES Last administered on 5/27/17at 10:36; Admin Dose 1 APPLIC; Start 09/08/16 at 12: 00 Insulin Detemir (Levemir) 9 unit HS SC Last administered on 09/28/16t 20:29; Admin Dose 9 UNIT; Start 09/20/16 at 21:00 ARY ROMAN September 29, 2016 11:54
[2016-09-29 19:39] VITALS: BP 115/57; RESP 18
[2016-09-29] MEDS: DOXAZOSIN 2 MG TAB GTB SCH (21:29)
[2016-09-29] MEDS: INSULIN DETEMIR [LEVEMIR] 3ML CART SC SCH (21:40)
[2016-09-30] VITALS (13 sets, daily range): BP systolic 89–142; BP diastolic 43–62; PULSE 64–84; RESP 18–20
[2016-09-30] MEDS: LANSOPRAZOLE 30 MG CAP GTB SCH (05:37)
[2016-09-30] MEDS: INSULIN ASPART [NOVOLOG] 3 ML PEN SC SCH ×4 (05:37→17:07)
[2016-09-30] MEDS: LEVALBUTEROL (NEB) 0.63 MG/3 ML AMP NEB SCH ×4 (07:45→19:49)
[2016-09-30] MEDS: SEVELAMER CARBONATE 0.8 GM PKT GTB SCH ×3 (08:28→17:07)
[2016-09-30] MEDS: FOLIC ACID 1 MG TAB GTB SCH (08:28)
[2016-09-30] MEDS: LEVETIRACETAM (100 MG/ML) 5ML CUP GTB SCH ×2 (08:28→20:57)
[2016-09-30] MEDS: MULTIVIT/CA CARB/B CMPLX/FA TAB GTB SCH (08:28)
[2016-09-30] MEDS: SENNA TAB GTB SCH (08:28)
[2016-09-30] MEDS: METOPROLOL 25 MG TAB GTB SCH ×2 (08:29→20:57)
[2016-09-30] MEDS: AMLODIPINE 5 MG TAB GTB SCH (08:29)
[2016-09-30] MEDS: BACITRACIN/POLYMYX 3.5 GM OPH OINT BOTH EYES SCH ×2 (08:29→20:57)
--- NOTE | 2016-09-30 11:54 | PN ---
DATE: 09/30/2016 SUBJECTIVE: The patient is stable. No events overnight. No fevers, chills, nausea, vomiting, no s hortness of breath. OBJECTIVE: VITAL SIGNS: Blood pressure is 119/52, respirations 18, pulse 66, temperature 97.8. HEENT: Head is normocephalic. NECK: Shows trach. HEART: Regular rate. LUNGS: Show diminished breath sounds at the base. ABDOMEN: Soft, nontender to palpation without rebound or guarding. EXTREMITIES: Negative for clubbing, cyanosis, or edema. DERMATOLOGIC: No rashes. MUSCULOSKELETAL: No joint effusions. NEUROLOGIC: No change in exam. MEDICATIONS: The patient's medications have been reviewed. LABORATORY DATA: Has been reviewed. ASSESSMENT AND PLAN: 1. End-stage renal disease. Plan for hemodialysis tomorrow for 3 hours on a 3K bath, calcium 2.5. 2. Anemia. Continue to monitor H and H levels. Continue EPO. 3. Mineral bone disorder. Continue to monitor calcium and phosphorus levels. Continue phos binder s. 4. Hyponatremia. Continue to limit free water intake. 5. Hypertension. Continue current blood pressure regimen. 6. Sepsis secondary to pneumonia. The patient is completing an antibiotic course. 7. Chronic respiratory failure, status post currently stable. Currently stable. Continue to monit or. 8. Diabetes, continue Accu-Cheks and insulin sliding scale. 9. Chronic encephalopathy. No change. 10. Seizure disorder. Continue medical management. 11. History of intracranial bleed. Dictated By: MARYURI WALLER/FRANCES Conf#: [id number] DID#: [id number]
--- NOTE | 2016-09-30 12:15 | PN ---
Date/Time of Note Date/Time of Note DATE: 09/30/16 TIME: 12:14 Assessment/Plan VTE Prophylaxis VTE Prophylaxis Intervention: other Lines/Catheters [facility] (from [facility] Permacath Urinary Cath still in place: No Assessment/Plan Chief Complaint/Hosp Course - End-stage renal disease on hemodialysis. Continue hemodialysis per nephrology. Dr. Sales is following in nephrology consultation. - Hypertension. Continue metoprolol and hydralazine. - Anemia of chronic disease, continue Epogen. - Acute on chronic encephalopathy, resolved. MRI of the brain is negative for any acute stroke. - S/p sepsis Dr. Benjy lang is following in infection disease consultation. - Status post HCAP. Status post treatment - Chronic respiratory failure with tracheostomy, currently on T-piece. Dr. Freitas is following in pulmonology consultation - History of nontraumatic intracranial bleed, status post craniotomy. - Possible seizure disorder. Continue Keppra. - Diabetes mellitus. Continue Levemir and NovoLog per mild algorithm sliding scale. Awaits [facility] facility placement Problems: Subjective 24 Hr Interval Summary Free Text/Dictation Eyes open, not verbally responsive, appears stable Exam/Review of Systems Vital Signs Vitals Vital Signs Date Time Temp Pulse Resp B/P Pulse Ox O2 Delivery O2 Flow Rate FiO2 09/30/16 11:59 72 20 97 Aerosol 28 09/30/16 08:00 5.0 09/30/16 07:40 97.8 119/58 Intake and Output 09/29/16 09/29/16 09/30/16 15:00 23:00 07:00 Intake Total 660 ml 660 ml Output Total 2 ml Balance 658 ml 660 ml Exam Constitutional: well developed Head: atraumatic, normocephalic Neck: supple Respiratory: diminished breath sounds Cardiovascular: regular rate and rhythm Gastrointestinal: non-tender, soft Extremities: normal pulses Results Result Diagram: 09/29/16 0500 09/29/16 0502 Results 24 hrs Laboratory Tests Test 09/29/16 17:38 09/29/16 21:34 09/30/16 00:16 09/30/16 05:37 Bedside Glucose 86 110 109 103 Test 09/30/16 11:57 Bedside Glucose 84 Medications Medications Current Medications Amlodipine Besylate (Norvasc) 5 mg DAILY GTB Last administered on 5/27/17at 10: 35; Admin Dose 5 MG; Start 08/30/16 at 09:00 Clonidine (Catapres) 0.1 mg DAILY PRN GTB ELEVATED SYSTOLIC BP; Start 08/29/16 at 23:00 Doxazosin Mesylate (Cardura) 2 mg QHS GTB Last administered on 09/29/16 21:29 ; Admin Dose 2 MG; Start 08/30/16 at 21:00 Folic Acid (Folic Acid) 1 mg DAILY GTB Last administered on 09/30/16 08:28; Admin Dose 1 MG; Start 08/30/16 at 09:00 Hydralazine HCl (Apresoline) 50 mg Q8 GTB Last administered on 09/30/16 05:38 ; Admin Dose 50 MG; Start 08/30/16 at 06:00 Levetiracetam (Keppra Liquid) 500 mg BID GTB Last administered on 09/30/16 08: 28; Admin Dose 500 MG; Start 08/30/16 at 09:00 Metoprolol Tartrate (Lopressor) 25 mg BID GTB Last administered on 09/29/16 21 :30; Admin Dose 25 MG; Start 08/30/16 at 09:00 Multivit/Ca Carb/ B Cmplx/FA/Prenat (Leah-Juan Jose) 1 tab DAILY GTB Last administered on 09/30/16 08:28; Admin Dose 1 TAB; Start 08/30/16 at 09:00 Ondansetron HCl (Zofran Tab) 4 mg Q6H PRN GTB NAUSEA AND/OR VOMITING; Start at 23:00 Senna (Senokot) 1 tab DAILY GTB Last administered on 09/30/16 08:28; Admin Dose 1 TAB; Start 08/30/16 at 09:00 Zolpidem Tartrate (Ambien) 5 mg QHS PRN GTB INSOMNIA; Start 08/29/16 at 23:00 Lansoprazole (Prevacid) 30 mg DAILY@06 GTB Last administered on 09/30/16 05:37 ; Admin Dose 30 MG; Start 08/30/16 at 06:00 Acetaminophen (Tylenol Liquid) 650 mg Q4H PRN GTB PAIN AND OR ELEVATED TEMP Last administered on 09/13/16 09:35; Admin Dose 650 MG; Start 08/29/16 at 23:00 Insulin Aspart (Novolog Insulin Pen) NOVOLOG *MILD* ALGORI... Q6 SC Last administered on 09/26/16 17:55; Admin Dose 1 UNIT; Start 08/30/16 at 00:00 Miscellaneous Information 1 ea NOTE XX ; Start 08/31/16 at 07:00 Glucose (Glutose) 15 gm Q15M PRN PO DECREASED GLUCOSE; Start 08/31/16 at 07:00 Glucose (Glutose) 22.5 gm Q15M PRN PO DECREASED GLUCOSE; Start 08/31/16 at 07: 00 Dextrose (D50w Syringe) 25 ml Q15M PRN IV DECREASED GLUCOSE Last administered on 09/20/16 06:33; Admin Dose 25 ML; Start 08/31/16 at 07:00 Dextrose (D50w Syringe) 50 ml Q15M PRN IV DECREASED GLUCOSE; Start 08/31/16 at 07:00 Glucagon (Glucagen) 1 mg Q15M PRN IM DECREASED GLUCOSE; Start 08/31/16 at 07:00 Glucose (Glutose) 15 gm Q15M PRN BUCCAL DECREASED GLUCOSE; Start 08/31/16 at 07 :00 Bacitracin/ Polymyxin B Sulfate (Ak-Poly-Anais Oph Oint) 1 applic BID BOTH EYES Last administered on 09/30/16 08:29; Admin Dose 1 APPLIC; Start 09/08/16 at 12: 00 Insulin Detemir (Levemir) 9 unit HS SC Last administered on 09/29/16 21:40; Admin Dose 9 UNIT; Start 09/20/16 at 21:00 ARY ROMAN September 30, 2016 12:15
[2016-09-30] MEDS: DOXAZOSIN 2 MG TAB GTB SCH (20:57)
[2016-09-30] MEDS: INSULIN DETEMIR [LEVEMIR] 3ML CART SC SCH (21:16)
[2016-10-01] VITALS (9 sets, daily range): BP systolic 90–130; BP diastolic 43–63; PULSE 89–101; RESP 18–20
[2016-10-01 05:23] LABS: ADD SCAN DIFF NO
[2016-10-01 05:28] LABS: BASOPHILS % 0.2 % (0.0-2.0); EOSINOPHILS # 0.1 10^3/ul (0.0-0.5); EOSINOPHILS % 1.4 % (0.0-7.0); HEMATOCRIT 27.1 % (42.0-52.0); HEMOGLOBIN 8.6 g/dl (14.0-18.0); LYMPHOCYTES # 0.6 10^3/ul (0.8-2.9); LYMPHOCYTES % 10.5 % (15.0-51.0); MEAN CORPUSCULAR HGB CONC 31.7 g/dl (32.0-37.0); MEAN CORPUSCULAR VOLUME 91.2 fl (82.0-101.0); MEAN PLATELET VOLUME 10.2 fl (7.4-10.4); MONOCYTE # 0.5 10^3/ul (0.3-0.9); MONOCYTES % 8.2 % (0.0-11.0); NEUTROPHIL # 4.6 10^3/ul (1.6-7.5); NEUTROPHILS % 79.4 % (39.0-77.0); PLATELET COUNT 206 10^3/UL (140-415); RED BLOOD COUNT 2.97 10^6/ul (4.70-6.10); RED CELL DISTRIBUTION WIDTH 17.3 % (11.5-14.5); WHITE BLOOD COUNT 5.7 10^3/ul (4.8-10.8)
[2016-10-01 05:53] LABS: CALCIUM 9.7 mg/dl (8.4-10.2); CREATININE 3.29 mg/dl (0.61-1.24)
[2016-10-01] MEDS: INSULIN ASPART [NOVOLOG] 3 ML PEN SC SCH ×4 (06:00→17:44)
[2016-10-01] MEDS: LANSOPRAZOLE 30 MG CAP GTB SCH (06:10)
[2016-10-01] MEDS: DEXTROSE 50% 50 ML SYRINGE IV PRN (06:28)
[2016-10-01] MEDS: LEVALBUTEROL (NEB) 0.63 MG/3 ML AMP NEB SCH ×4 (07:40→20:01)
[2016-10-01] MEDS: SENNA TAB GTB SCH (08:37)
[2016-10-01] MEDS: FOLIC ACID 1 MG TAB GTB SCH (08:37)
[2016-10-01] MEDS: SEVELAMER CARBONATE 0.8 GM PKT GTB SCH ×3 (08:37→17:42)
[2016-10-01] MEDS: LEVETIRACETAM (100 MG/ML) 5ML CUP GTB SCH ×2 (08:37→21:15)
[2016-10-01] MEDS: MULTIVIT/CA CARB/B CMPLX/FA TAB GTB SCH (08:38)
[2016-10-01] MEDS: BACITRACIN/POLYMYX 3.5 GM OPH OINT BOTH EYES SCH ×2 (08:38→21:15)
[2016-10-01] MEDS: METOPROLOL 25 MG TAB GTB SCH ×2 (08:38→21:16)
[2016-10-01] MEDS: AMLODIPINE 5 MG TAB GTB SCH (08:38)
--- NOTE | 2016-10-01 09:15 | PN ---
DATE: 10/01/2016 SUBJECTIVE: The patient had hemodialysis yesterday, tolerated well without any complications. No ot her events noted. OBJECTIVE: VITAL SIGNS: Blood pressure 130/61, respiration 18, pulse 75, temperature 97.5. HEENT: Head is normocephalic. NECK: Shows trach. HEART: Regular rate. LUNGS: Show diminished breath sounds at the base. ABDOMEN: Soft, nontender to palpation without rebound or guarding. EXTREMITIES: Negative for clubbing, cyanosis, no edema. DERMATOLOGIC: No rashes. MUSCULOSKELETAL: No joint effusions. NEUROLOGIC: No change in exam. MEDICATIONS: The patient's medications have been reviewed. LABORATORY DATA: Sodium 138, potassium 4.0, chloride 99, BUN 61, creatinine 3.29. White count 5.7, hemoglobin 9.6, hematocrit 27.1, platelet count is 206. ASSESSMENT AND PLAN: 1. End-stage renal disease. Plan for dialysis today for 3 hours, 2K bath, calcium 2.5. 2. Anemia. Continue to monitor hemoglobin and hematocrit levels. 3. Mineral bone disorder. Continue to monitor calcium and phosphorus levels. 4. Hyponatremia, resolved. 5. Hypertension. Continue current blood pressure regimen. 6. Sepsis secondary to pneumonia. The patient is completing antibiotic course. 7. Chronic respiratory failure, status post tracheostomy. Currently stable. Continue to monitor. 8. Diabetes, continue Accu-Cheks and sliding scale. 9. Chronic encephalopathy. No change. 10. Seizure disorder. Continue medical management. 11. History of intracranial bleed. Dictated By: MARYURI WALLER/FRANCES Conf#: [id number] DID#: [id number]
--- NOTE | 2016-10-01 09:56 | PN ---
Date/Time of Note Date/Time of Note DATE: 10/01/16 TIME: 09:56 Assessment/Plan VTE Prophylaxis VTE Prophylaxis Intervention: other Lines/Catheters [facility]from [facility] PERMACATH Urinary Cath still in place: No Assessment/Plan Chief Complaint/Hosp Course - End-stage renal disease on hemodialysis. Continue hemodialysis per nephrology. Dr. Sales is following in nephrology consultation. - Hypertension. Continue metoprolol and hydralazine. - Anemia of chronic disease, continue Epogen. - Acute on chronic encephalopathy, resolved. MRI of the brain is negative for any acute stroke. - S/p sepsis Dr. Benjy lang is following in infection disease consultation. - Status post HCAP. Status post treatment - Chronic respiratory failure with tracheostomy, currently on T-piece. Dr. Feritas is following in pulmonology consultation - History of nontraumatic intracranial bleed, status post craniotomy. - Possible seizure disorder. Continue Keppra. - Diabetes mellitus. Continue Levemir and NovoLog per mild algorithm sliding scale. Awaits [facility] facility placement Problems: Subjective 24 Hr Interval Summary Free Text/Dictation Patient has no complaints, nurse noted overnight that his blood sugar is low Exam/Review of Systems Vital Signs Vitals Vital Signs Date Time Temp Pulse Resp B/P Pulse Ox O2 Delivery O2 Flow Rate FiO2 10/01/16 07:41 86 17 96 Aerosol 5.0 28 10/01/16 07:34 97.5 130/61 Intake and Output 09/30/16 09/30/16 10/01/16 15:00 23:00 07:00 Intake Total 700 ml Output Total 3000 ml Balance -2300 ml Exam Constitutional: well developed Head: atraumatic, normocephalic Neck: supple Respiratory: diminished breath sounds Cardiovascular: regular rate and rhythm Gastrointestinal: non-tender, soft Extremities: normal pulses Results Result Diagram: 10/01/16 0505 10/01/16 0505 Results 24 hrs Laboratory Tests Test 09/30/16 11:57 09/30/16 17:06 09/30/16 20:56 10/01/16 00:01 Bedside Glucose 84 127 108 107 Test 10/01/16 05:05 10/01/16 06:09 10/01/16 06:48 10/01/16 07:11 White Blood Count 5.7 # Red Blood Count 2.97 L Hemoglobin 8.6 L Hematocrit 27.1 L Mean Corpuscular Volume 91.2 Mean Corpuscular Hemoglobin 29.0 Mean Corpuscular Hemoglobin Concent 31.7 L Red Cell Distribution Width 17.3 H Platelet Count 206 Mean Platelet Volume 10.2 Neutrophils % 79.4 H Lymphocytes % 10.5 L Monocytes % 8.2 Eosinophils % 1.4 Basophils % 0.2 Nucleated Red Blood Cells % 0.0 Neutrophils # 4.6 Lymphocytes # 0.6 L Monocytes # 0.5 Eosinophils # 0.1 Basophils # 0.0 Nucleated Red Blood Cells # 0.0 Sodium Level 138 Potassium Level 4.0 Chloride Level 99 Carbon Dioxide Level 30 Anion Gap 13 Blood Urea Nitrogen 61 H Creatinine 3.29 H Glucose Level 45 *L Calcium Level 9.7 Bedside Glucose 54 L 101 81 Test 10/01/16 08:40 Bedside Glucose 65 L Medications Medications Current Medications Amlodipine Besylate (Norvasc) 5 mg DAILY GTB Last administered on 09/29/16 10: 35; Admin Dose 5 MG; Start 08/30/16 at 09:00 Clonidine (Catapres) 0.1 mg DAILY PRN GTB ELEVATED SYSTOLIC BP; Start 08/29/16 at 23:00 Doxazosin Mesylate (Cardura) 2 mg QHS GTB Last administered on 09/30/16 20:57 ; Admin Dose 2 MG; Start 08/30/16 at 21:00 Folic Acid (Folic Acid) 1 mg DAILY GTB Last administered on 10/01/16 08:37; Admin Dose 1 MG; Start 08/30/16 at 09:00 Hydralazine HCl (Apresoline) 50 mg Q8 GTB Last administered on 10/01/16 06:10 ; Admin Dose 50 MG; Start 08/30/16 at 06:00 Levetiracetam (Keppra Liquid) 500 mg BID GTB Last administered on 10/01/16 08: 37; Admin Dose 500 MG; Start 08/30/16 at 09:00 Metoprolol Tartrate (Lopressor) 25 mg BID GTB Last administered on 09/30/16 20 :57; Admin Dose 25 MG; Start 08/30/16 at 09:00 Multivit/Ca Carb/ B Cmplx/FA/Prenat (Leah-Juan Jose) 1 tab DAILY GTB Last administered on 10/01/16 08:38; Admin Dose 1 TAB; Start 08/30/16 at 09:00 Ondansetron HCl (Zofran Tab) 4 mg Q6H PRN GTB NAUSEA AND/OR VOMITING; Start at 23:00 Senna (Senokot) 1 tab DAILY GTB Last administered on 10/01/16 08:37; Admin Dose 1 TAB; Start 08/30/16 at 09:00 Zolpidem Tartrate (Ambien) 5 mg QHS PRN GTB INSOMNIA; Start 08/29/16 at 23:00 Lansoprazole (Prevacid) 30 mg DAILY@06 GTB Last administered on 10/01/16 06:10 ; Admin Dose 30 MG; Start 08/30/16 at 06:00 Acetaminophen (Tylenol Liquid) 650 mg Q4H PRN GTB PAIN AND OR ELEVATED TEMP Last administered on 09/13/16 09:35; Admin Dose 650 MG; Start 08/29/16 at 23:00 Insulin Aspart (Novolog Insulin Pen) NOVOLOG *MILD* ALGORI... Q6 SC Last administered on 09/26/16 17:55; Admin Dose 1 UNIT; Start 08/30/16 at 00:00 Miscellaneous Information 1 ea NOTE XX ; Start 08/31/16 at 07:00 Glucose (Glutose) 15 gm Q15M PRN PO DECREASED GLUCOSE; Start 08/31/16 at 07:00 Glucose (Glutose) 22.5 gm Q15M PRN PO DECREASED GLUCOSE; Start 08/31/16 at 07: 00 Dextrose (D50w Syringe) 25 ml Q15M PRN IV DECREASED GLUCOSE Last administered on 10/01/16 06:28; Admin Dose 25 ML; Start 08/31/16 at 07:00 Dextrose (D50w Syringe) 50 ml Q15M PRN IV DECREASED GLUCOSE; Start 08/31/16 at 07:00 Glucagon (Glucagen) 1 mg Q15M PRN IM DECREASED GLUCOSE; Start 08/31/16 at 07:00 Glucose (Glutose) 15 gm Q15M PRN BUCCAL DECREASED GLUCOSE; Start 08/31/16 at 07 :00 Bacitracin/ Polymyxin B Sulfate (Ak-Poly-Anais Oph Oint) 1 applic BID BOTH EYES Last administered on 10/01/16 08:38; Admin Dose 1 APPLIC; Start 09/08/16 at 12: 00 Insulin Detemir (Levemir) 9 unit HS SC Last administered on 09/30/16 21:16; Admin Dose 9 UNIT; Start 09/20/16 at 21:00 ARY ROMAN October 01, 2016 09:56
--- NOTE | 2016-10-01 16:05 | CONS ---
Date/Time of Note Date/Time of Note DATE: 10/01/16 TIME: 16:04 Assessment/Plan Assessment/Plan Additional Assessment/Plan - sepsis due to HCAP; procalcitonin 0.93 - resolved - HCAP due to pseudomonas per resp cx on 08/29/16 & 09/13/16 (now intermediate sensitivity to Cefepime) - treated with Cefepime, then Meropenem. - Chronic respiratory failure with trach - G tube dependent - h/o intracranial bleed s/p craniotomy - ESRD on HD - hyponatremia - improved - T2DM - Hgb A1c 4.8% 08/08/16 per SNF records - HTN associated with DM - anemia of CKD - thrombocytosis - resolved - BPH - Hx prostate CA per SNF records ([facility]) - acute on chronic encephalopathy - MRI brain 09/12/16 showed no acute infarct; improving - fever due to persistent pseudomonas -resolved - elevated 1, 8-Avte-Y-glucan Note: Pt took Cefepime (08/29/16-09/13/16), Caspofungin (09/13/16-09/16/16) and Meropenem (09/13/16-09/20/16) Recommendations: - Monitor off abx - DC planning in progress; awaiting SNF placement - Will sign off. Please re-consult PRN. Management d/w RN and Dr. Burleson Consultation Date/Type/Reason Admit Date/Time Aug 29, 2016 at 16:21 Initial Consult Date 08/31/16 Type of Consultation: Infectious Disease Referring Provider: CANDY JUAREZ Exam/Review of Systems Vital Signs Vitals Vital Signs Date Time Temp Pulse Resp B/P Pulse Ox O2 Delivery O2 Flow Rate FiO2 10/01/16 14:05 101 19 10/01/16 13:31 96 Aerosol 5.0 28 10/01/16 07:34 97.5 130/61 Intake and Output 09/30/16 09/30/16 10/01/16 15:00 23:00 07:00 Intake Total 700 ml Output Total 3000 ml Balance -2300 ml Exam Constitutional: alert Eyes: nl sclera Respiratory: clear to auscultation, normal air movement Cardiovascular: nl pulses, regular rate and rhythm Gastrointestinal: non-tender, soft Musculoskeletal: muscle weakness Extremities: normal pulses Neurological: confused Lymph: nontender Results Result Diagram: 10/01/16 0505 10/01/16 0505 Results 24 hrs Laboratory Tests Test 09/30/16 17:06 09/30/16 20:56 10/01/16 00:01 10/01/16 05:05 Bedside Glucose 127 108 107 White Blood Count 5.7 # Red Blood Count 2.97 L Hemoglobin 8.6 L Hematocrit 27.1 L Mean Corpuscular Volume 91.2 Mean Corpuscular Hemoglobin 29.0 Mean Corpuscular Hemoglobin Concent 31.7 L Red Cell Distribution Width 17.3 H Platelet Count 206 Mean Platelet Volume 10.2 Neutrophils % 79.4 H Lymphocytes % 10.5 L Monocytes % 8.2 Eosinophils % 1.4 Basophils % 0.2 Nucleated Red Blood Cells % 0.0 Neutrophils # 4.6 Lymphocytes # 0.6 L Monocytes # 0.5 Eosinophils # 0.1 Basophils # 0.0 Nucleated Red Blood Cells # 0.0 Sodium Level 138 Potassium Level 4.0 Chloride Level 99 Carbon Dioxide Level 30 Anion Gap 13 Blood Urea Nitrogen 61 H Creatinine 3.29 H Glucose Level 45 *L Calcium Level 9.7 Test 10/01/16 06:09 10/01/16 06:48 10/01/16 07:11 10/01/16 08:40 Bedside Glucose 54 L 101 81 65 L Test 10/01/16 11:56 Bedside Glucose 167 Medications Medications Current Medications Amlodipine Besylate (Norvasc) 5 mg DAILY GTB Last administered on 09/29/16 10: 35; Admin Dose 5 MG; Start 08/30/16 at 09:00 Clonidine (Catapres) 0.1 mg DAILY PRN GTB ELEVATED SYSTOLIC BP; Start 08/29/16 at 23:00 Doxazosin Mesylate (Cardura) 2 mg QHS GTB Last administered on 09/30/16 20:57 ; Admin Dose 2 MG; Start 08/30/16 at 21:00 Folic Acid (Folic Acid) 1 mg DAILY GTB Last administered on 10/01/16 08:37; Admin Dose 1 MG; Start 08/30/16 at 09:00 Hydralazine HCl (Apresoline) 50 mg Q8 GTB Last administered on 10/01/16 06:10 ; Admin Dose 50 MG; Start 08/30/16 at 06:00 Levetiracetam (Keppra Liquid) 500 mg BID GTB Last administered on 10/01/16 08: 37; Admin Dose 500 MG; Start 08/30/16 at 09:00 Metoprolol Tartrate (Lopressor) 25 mg BID GTB Last administered on 09/30/16 20 :57; Admin Dose 25 MG; Start 08/30/16 at 09:00 Multivit/Ca Carb/ B Cmplx/FA/Prenat (Leah-Juan Jose) 1 tab DAILY GTB Last administered on 10/01/16 08:38; Admin Dose 1 TAB; Start 08/30/16 at 09:00 Ondansetron HCl (Zofran Tab) 4 mg Q6H PRN GTB NAUSEA AND/OR VOMITING; Start at 23:00 Senna (Senokot) 1 tab DAILY GTB Last administered on 10/01/16 08:37; Admin Dose 1 TAB; Start 08/30/16 at 09:00 Zolpidem Tartrate (Ambien) 5 mg QHS PRN GTB INSOMNIA; Start 08/29/16 at 23:00 Lansoprazole (Prevacid) 30 mg DAILY@06 GTB Last administered on 10/01/16 06:10 ; Admin Dose 30 MG; Start 08/30/16 at 06:00 Acetaminophen (Tylenol Liquid) 650 mg Q4H PRN GTB PAIN AND OR ELEVATED TEMP Last administered on 09/13/16 09:35; Admin Dose 650 MG; Start 08/29/16 at 23:00 Insulin Aspart (Novolog Insulin Pen) NOVOLOG *MILD* ALGORI... Q6 SC Last administered on 10/01/16 12:02; Admin Dose 1 UNIT; Start 08/30/16 at 00:00 Miscellaneous Information 1 ea NOTE XX ; Start 08/31/16 at 07:00 Glucose (Glutose) 15 gm Q15M PRN PO DECREASED GLUCOSE; Start 08/31/16 at 07:00 Glucose (Glutose) 22.5 gm Q15M PRN PO DECREASED GLUCOSE; Start 08/31/16 at 07: 00 Dextrose (D50w Syringe) 25 ml Q15M PRN IV DECREASED GLUCOSE Last administered on 10/01/16 06:28; Admin Dose 25 ML; Start 08/31/16 at 07:00 Dextrose (D50w Syringe) 50 ml Q15M PRN IV DECREASED GLUCOSE; Start 08/31/16 at 07:00 Glucagon (Glucagen) 1 mg Q15M PRN IM DECREASED GLUCOSE; Start 08/31/16 at 07:00 Glucose (Glutose) 15 gm Q15M PRN BUCCAL DECREASED GLUCOSE; Start 08/31/16 at 07 :00 Bacitracin/ Polymyxin B Sulfate (Ak-Poly-Anais Oph Oint) 1 applic BID BOTH EYES Last administered on 10/01/16t 08:38; Admin Dose 1 APPLIC; Start 09/08/16 at 12: 00 Insulin Detemir (Levemir) 4 unit HS SC ; Start 10/01/16 at 21:00 CANDY JUAREZ October 01, 2016 16:05
[2016-10-01] MEDS: EPOETIN 10000 UNITS/1 ML INJ (ESRD) SC SCH (18:32)
[2016-10-01] MEDS: ACETAMINOPHEN 650MG/20.3ML CUP GTB PRN (21:15)
[2016-10-01] MEDS: DOXAZOSIN 2 MG TAB GTB SCH (21:16)
[2016-10-01] MEDS: INSULIN DETEMIR [LEVEMIR] 3ML CART SC SCH (21:25)
[2016-10-02 05:31] LABS: ADD SCAN DIFF NO
[2016-10-02] MEDS: LANSOPRAZOLE 30 MG CAP GTB SCH (05:34)
[2016-10-02] MEDS: INSULIN ASPART [NOVOLOG] 3 ML PEN SC SCH ×4 (05:37→18:00)
[2016-10-02 05:40] LABS: ABNORMAL IP MESSAGE 1; BASOPHILS % 0.2 % (0.0-2.0); EOSINOPHILS # 0.1 10^3/ul (0.0-0.5); EOSINOPHILS % 1.2 % (0.0-7.0); HEMATOCRIT 27.1 % (42.0-52.0); HEMOGLOBIN 8.5 g/dl (14.0-18.0); LYMPHOCYTES # 0.5 10^3/ul (0.8-2.9); LYMPHOCYTES % 6.2 % (15.0-51.0); MEAN CORPUSCULAR HEMOGLOBIN 29.4 pg (29.0-33.0); MEAN CORPUSCULAR HGB CONC 31.4 g/dl (32.0-37.0); MEAN CORPUSCULAR VOLUME 93.8 fl (82.0-101.0); MEAN PLATELET VOLUME 10.4 fl (7.4-10.4); MONOCYTE # 0.6 10^3/ul (0.3-0.9); MONOCYTES % 7.1 % (0.0-11.0); NEUTROPHIL # 7.2 10^3/ul (1.6-7.5); NEUTROPHILS % 85.1 % (39.0-77.0); PLATELET COUNT 194 10^3/UL (140-415); RED BLOOD COUNT 2.89 10^6/ul (4.70-6.10); RED CELL DISTRIBUTION WIDTH 17.7 % (11.5-14.5); WHITE BLOOD COUNT 8.5 10^3/ul (4.8-10.8)
[2016-10-02] MEDS: ACETAMINOPHEN 650MG/20.3ML CUP GTB PRN (05:42)
[2016-10-02 07:40] VITALS: BP 149/63; RESP 18
[2016-10-02] MEDS: LEVALBUTEROL (NEB) 0.63 MG/3 ML AMP NEB SCH ×4 (07:48→19:49)
[2016-10-02] MEDS: MULTIVIT/CA CARB/B CMPLX/FA TAB GTB SCH (08:52)
[2016-10-02] MEDS: SEVELAMER CARBONATE 0.8 GM PKT GTB SCH ×3 (08:52→18:14)
[2016-10-02] MEDS: LEVETIRACETAM (100 MG/ML) 5ML CUP GTB SCH ×2 (08:53→20:45)
[2016-10-02] MEDS: FOLIC ACID 1 MG TAB GTB SCH (08:53)
[2016-10-02] MEDS: BACITRACIN/POLYMYX 3.5 GM OPH OINT BOTH EYES SCH ×2 (08:53→20:45)
[2016-10-02] MEDS: SENNA TAB GTB SCH (08:53)
[2016-10-02] MEDS: AMLODIPINE 5 MG TAB GTB SCH (08:54)
[2016-10-02] MEDS: METOPROLOL 25 MG TAB GTB SCH ×2 (08:54→20:44)
--- NOTE | 2016-10-02 09:59 | PN ---
DATE: 10/02/2016 SUBJECTIVE: The patient is stable. No events overnight. No fevers, chills, nausea, vomiting. The patient had hemodialysis yesterday, tolerated it well. OBJECTIVE: VITAL SIGNS: Blood pressure 149/63, respirations 18, pulse 96, temperature 98.2. HEENT: Head is normocephalic. NECK: Supple. HEART: Regular rate. LUNGS: Show diminished breath sounds at the base. ABDOMEN: Soft, nontender to palpation. No rebound or guarding. EXTREMITIES: Negative for clubbing, cyanosis. No edema. DERMATOLOGIC: No rashes. MUSCULOSKELETAL: No joint effusions. NEUROLOGIC: No change in exam. MEDICATIONS: Have been reviewed. LABORATORY DATA: Has been reviewed. No new labs. ASSESSMENT AND PLAN: 1. End-stage renal disease. The patient had hemodialysis yesterday, tolerated it well. Plan for d ialysis tomorrow. 2. Anemia of chronic disease. Continue to monitor H and H levels. Continue Epogen as needed. 3. Mineral bone disorder. Continue to monitor calcium and phosphorus levels. 4. Hypertension. Continue current blood pressure regimen. 5. Chronic respiratory failure, status post tracheostomy, currently stable. 6. Diabetes, continue Accu-Cheks and insulin sliding scale. 7. Chronic encephalopathy. No change. 8. Seizure disorder. Continue medical management. 9. Status post sepsis. 10. History of intracranial bleed. Dictated By: MARYURI WALLER/FRANCES Conf#: [id number] DID#: [id number]
--- NOTE | 2016-10-02 19:36 | PN ---
Date/Time of Note Date/Time of Note DATE: 10/02/16 TIME: 19:34 Assessment/Plan VTE Prophylaxis VTE Prophylaxis Intervention: SCD's Lines/Catheters [facility] Permacath Urinary Cath still in place: No Assessment/Plan Chief Complaint/Hosp Course Patient remains hemodynamically stable, no acute events. Assessment/Plan - End-stage renal disease on hemodialysis. Continue hemodialysis per nephrology. Dr. Sales is following in nephrology consultation. - Hypertension. Continue metoprolol and hydralazine. - Anemia of chronic disease, continue Epogen. - Acute on chronic encephalopathy, resolved. MRI of the brain is negative for any acute stroke. - S/p sepsis Dr. Benjy lang is following in infection disease consultation. - Status post HCAP. Status post treatment - Chronic respiratory failure with tracheostomy, currently on T-piece. Dr. Freitas is following in pulmonology consultation - History of nontraumatic intracranial bleed, status post craniotomy. - Possible seizure disorder. Continue Keppra. - Diabetes mellitus. Continue Levemir and NovoLog per mild algorithm sliding scale. Awaits senior care facility placement Further recommendations based on clinical course. Plan of care discussed with Dr. Godinez. Problems: Exam/Review of Systems Vital Signs Vitals Vital Signs Date Time Temp Pulse Resp B/P Pulse Ox O2 Delivery O2 Flow Rate FiO2 10/02/16 16:21 97 5.0 10/02/16 16:21 84 18 Aerosol 28 T Tube 10/02/16 07:40 98.2 149/63 Intake and Output 10/01/16 10/01/16 10/02/16 15:00 23:00 07:00 Intake Total 960 ml 680 ml Output Total 2500 ml Balance -1540 ml 680 ml Exam Constitutional: Awake Psych: no complaints Head: atraumatic, normocephalic Eyes: nl conjunctiva ENMT: nl external ears & nose Neck: other (Tracheostomy), supple Respiratory: slightly diminished breath sounds, Cardiovascular: regular rate and rhythm Gastrointestinal: non-tender, other (G-tube), soft Musculoskeletal: nl extremities to inspection Extremities: normal pulses Neurological: confused Additional Comments Right chest permacath Results Result Diagram: 10/02/16 0505 10/01/16 0505 Results 24 hrs Laboratory Tests Test 10/01/16 21:13 10/01/16 23:58 10/02/16 05:05 10/02/16 05:33 Bedside Glucose 106 111 92 White Blood Count 8.5 # Red Blood Count 2.89 L Hemoglobin 8.5 L Hematocrit 27.1 L Mean Corpuscular Volume 93.8 Mean Corpuscular Hemoglobin 29.4 Mean Corpuscular Hemoglobin Concent 31.4 L Red Cell Distribution Width 17.7 H Platelet Count 194 Mean Platelet Volume 10.4 Neutrophils % 85.1 H Lymphocytes % 6.2 L Monocytes % 7.1 Eosinophils % 1.2 Basophils % 0.2 Nucleated Red Blood Cells % 0.0 Neutrophils # 7.2 Lymphocytes # 0.5 L Monocytes # 0.6 Eosinophils # 0.1 Basophils # 0.0 Nucleated Red Blood Cells # 0.0 Hemoglobin A1c 4.8 Test 10/02/16 12:20 10/02/16 18:13 Bedside Glucose 97 116 Medications Medications Current Medications Amlodipine Besylate (Norvasc) 5 mg DAILY GTB Last administered on 09/29/16 10: 35; Admin Dose 5 MG; Start 08/30/16 at 09:00 Clonidine (Catapres) 0.1 mg DAILY PRN GTB ELEVATED SYSTOLIC BP; Start 08/29/16 at 23:00 Doxazosin Mesylate (Cardura) 2 mg QHS GTB Last administered on 10/01/16 21:16 ; Admin Dose 2 MG; Start 08/30/16 at 21:00 Folic Acid (Folic Acid) 1 mg DAILY GTB Last administered on 10/02/16 08:53; Admin Dose 1 MG; Start 08/30/16 at 09:00 Hydralazine HCl (Apresoline) 50 mg Q8 GTB Last administered on 10/02/16 05:37 ; Admin Dose 50 MG; Start 08/30/16 at 06:00 Levetiracetam (Keppra Liquid) 500 mg BID GTB Last administered on 10/02/16 08: 53; Admin Dose 500 MG; Start 08/30/16 at 09:00 Metoprolol Tartrate (Lopressor) 25 mg BID GTB Last administered on 10/01/16 21 :16; Admin Dose 25 MG; Start 08/30/16 at 09:00 Multivit/Ca Carb/ B Cmplx/FA/Prenat (Leah-Juan Jose) 1 tab DAILY GTB Last administered on 10/02/16 08:52; Admin Dose 1 TAB; Start 08/30/16 at 09:00 Ondansetron HCl (Zofran Tab) 4 mg Q6H PRN GTB NAUSEA AND/OR VOMITING; Start at 23:00 Senna (Senokot) 1 tab DAILY GTB Last administered on 10/02/16 08:53; Admin Dose 1 TAB; Start 08/30/16 at 09:00 Zolpidem Tartrate (Ambien) 5 mg QHS PRN GTB INSOMNIA; Start 08/29/16 at 23:00 Lansoprazole (Prevacid) 30 mg DAILY@06 GTB Last administered on 10/02/16 05:34 ; Admin Dose 30 MG; Start 08/30/16 at 06:00 Acetaminophen (Tylenol Liquid) 650 mg Q4H PRN GTB PAIN AND OR ELEVATED TEMP Last administered on 10/02/16 05:42; Admin Dose 650 MG; Start 08/29/16 at 23:00 Insulin Aspart (Novolog Insulin Pen) NOVOLOG *MILD* ALGORI... Q6 SC Last administered on 10/01/16 12:02; Admin Dose 1 UNIT; Start 08/30/16 at 00:00 Miscellaneous Information 1 ea NOTE XX ; Start 08/31/16 at 07:00 Glucose (Glutose) 15 gm Q15M PRN PO DECREASED GLUCOSE; Start 08/31/16 at 07:00 Glucose (Glutose) 22.5 gm Q15M PRN PO DECREASED GLUCOSE; Start 08/31/16 at 07: 00 Dextrose (D50w Syringe) 25 ml Q15M PRN IV DECREASED GLUCOSE Last administered on 10/01/16 06:28; Admin Dose 25 ML; Start 08/31/16 at 07:00 Dextrose (D50w Syringe) 50 ml Q15M PRN IV DECREASED GLUCOSE; Start 08/31/16 at 07:00 Glucagon (Glucagen) 1 mg Q15M PRN IM DECREASED GLUCOSE; Start 08/31/16 at 07:00 Glucose (Glutose) 15 gm Q15M PRN BUCCAL DECREASED GLUCOSE; Start 08/31/16 at 07 :00 Bacitracin/ Polymyxin B Sulfate (Ak-Poly-Anais Oph Oint) 1 applic BID BOTH EYES Last administered on 10/02/16 08:53; Admin Dose 1 APPLIC; Start 09/08/16 at 12: 00 Insulin Detemir (Levemir) 4 unit HS SC Last administered on 10/01/16 21:25; Admin Dose 4 UNIT; Start 10/01/16 at 21:00 NOELLE JIMENEZ October 02, 2016 19:36
[2016-10-02 19:41] VITALS: BP 137/64; RESP 18
[2016-10-02] MEDS: DOXAZOSIN 2 MG TAB GTB SCH (20:45)
[2016-10-02] MEDS: INSULIN DETEMIR [LEVEMIR] 3ML CART SC SCH (20:49)
[2016-10-02 21:40] VITALS: BP 152/68; PULSE 110
[2016-10-03] VITALS (12 sets, daily range): BP systolic 19–142; BP diastolic 40–65; PULSE 89–97; RESP 16–20
[2016-10-03 05:37] LABS: ADD SCAN DIFF NO
[2016-10-03] MEDS: INSULIN ASPART [NOVOLOG] 3 ML PEN SC SCH ×5 (05:40→23:26)
[2016-10-03] MEDS: LANSOPRAZOLE 30 MG CAP GTB SCH (05:41)
[2016-10-03 05:45] LABS: BASOPHILS % 0.2 % (0.0-2.0); EOSINOPHILS # 0.1 10^3/ul (0.0-0.5); EOSINOPHILS % 1.1 % (0.0-7.0); HEMATOCRIT 24.7 % (42.0-52.0); HEMOGLOBIN 7.8 g/dl (14.0-18.0); LYMPHOCYTES # 0.8 10^3/ul (0.8-2.9); LYMPHOCYTES % 8.2 % (15.0-51.0); MEAN CORPUSCULAR HEMOGLOBIN 30.1 pg (29.0-33.0); MEAN CORPUSCULAR HGB CONC 31.6 g/dl (32.0-37.0); MEAN CORPUSCULAR VOLUME 95.4 fl (82.0-101.0); MEAN PLATELET VOLUME 10.6 fl (7.4-10.4); MONOCYTE # 0.7 10^3/ul (0.3-0.9); NEUTROPHIL # 7.9 10^3/ul (1.6-7.5); NEUTROPHILS % 83.1 % (39.0-77.0); NUCLEATED RED BLOOD CELLS% 0.3 /100WBC (0.0-0.0); PLATELET COUNT 204 10^3/UL (140-415); RED BLOOD COUNT 2.59 10^6/ul (4.70-6.10); RED CELL DISTRIBUTION WIDTH 18.3 % (11.5-14.5); WHITE BLOOD COUNT 9.5 10^3/ul (4.8-10.8)
[2016-10-03 06:12] LABS: CREATININE 3.73 mg/dl (0.61-1.24)
[2016-10-03 06:13] LABS: CALCIUM 10.1 mg/dl (8.4-10.2)
[2016-10-03] MEDS: LEVALBUTEROL (NEB) 0.63 MG/3 ML AMP NEB SCH ×4 (07:51→20:14)
[2016-10-03] MEDS: SEVELAMER CARBONATE 0.8 GM PKT GTB SCH ×3 (08:21→17:57)
[2016-10-03] MEDS: FOLIC ACID 1 MG TAB GTB SCH (08:21)
[2016-10-03] MEDS: BACITRACIN/POLYMYX 3.5 GM OPH OINT BOTH EYES SCH ×2 (08:21→20:59)
[2016-10-03] MEDS: MULTIVIT/CA CARB/B CMPLX/FA TAB GTB SCH (08:21)
[2016-10-03] MEDS: SENNA TAB GTB SCH (08:22)
[2016-10-03] MEDS: LEVETIRACETAM (100 MG/ML) 5ML CUP GTB SCH ×2 (08:22→20:59)
[2016-10-03] MEDS: AMLODIPINE 5 MG TAB GTB SCH (08:24)
[2016-10-03] MEDS: METOPROLOL 25 MG TAB GTB SCH ×2 (08:24→21:00)
--- NOTE | 2016-10-03 11:46 | PN ---
DATE: 10/03/2016 SUBJECTIVE: The patient is stable. The patient is scheduled for hemodialysis today. No other even ts noted. OBJECTIVE: VITAL SIGNS: Blood pressure 123/57, respirations 16, pulse 91, temperature 98.3. HEENT: Head is normocephalic. NECK: Supple. HEART: Regular rate. LUNGS: Show diminished breath sounds at base. ABDOMEN: Soft, nontender to palpation without rebound or guarding. EXTREMITIES: Negative for clubbing, cyanosis, or edema. DERMATOLOGIC: No rashes. MUSCULOSKELETAL: No joint effusions. NEUROLOGIC: No change in exam. MEDICATIONS: Reviewed. LABORATORY DATA: Shows sodium 137, potassium 4.0, chloride 99, BUN 60, creatinine 3.73. White coun t 9.5, hemoglobin 7.8, hematocrit 24.7, platelet count is 204. ASSESSMENT AND PLAN: 1. End stage renal disease. Plan for dialysis today for 3 hours, 3K bath, calcium 2.5. 2. Anemia of chronic disease. Continue to monitor hemoglobin and hematocrit. The patient received 2 units of PRBC with dialysis. Continue Epogen. 3. Mineral bone disorder. Continue to monitor calcium and phosphorus levels. 4. Hypertension. Continue current blood pressure regimen. 5. Chronic respiratory failure, status post trach, currently stable. 6. Diabetes, continue Accu-Cheks and sliding scale. 7. Chronic encephalopathy. No change. 8. Seizure disorder. Continue medical management. 9. Status post sepsis. 10. History of intracranial bleed. Dictated By: MARYURI WALLER/FRANCES Conf#: [id number] DID#: [id number]
--- NOTE | 2016-10-03 16:09 | PN ---
Date/Time of Note Date/Time of Note DATE: 10/03/16 TIME: 16:07 Assessment/Plan VTE Prophylaxis VTE Prophylaxis Intervention: SCD's Lines/Catheters IV C[facility]ter Type (from [facility] Permacath Urinary Cath still in place: No Assessment/Plan Chief Complaint/Hosp Course Patient is undergoing second units of packed red blood cells transfusion, received first unit with hemodialysis today for hemoglobin of 7.8, remains hemodynamically stable, awake. Assessment/Plan - End-stage renal disease on hemodialysis. Continue hemodialysis per nephrology. Dr. Sales is following in nephrology consultation. - Hypertension. Continue metoprolol and hydralazine. - Anemia of chronic disease, transfuse as needed, continue Epogen. - Acute on chronic encephalopathy, resolved. MRI of the brain is negative for any acute stroke. - S/p sepsis Dr. Benjy lang is following in infection disease consultation. - Status post HCAP. Status post treatment - Chronic respiratory failure with tracheostomy, currently on T-piece. Dr. Freitas is following in pulmonology consultation - History of nontraumatic intracranial bleed, status post craniotomy. - Possible seizure disorder. Continue Keppra. - Diabetes mellitus. Continue Levemir and NovoLog per mild algorithm sliding scale. Awaits long term facility placement Further recommendations based on clinical course. Plan of care discussed with Dr. Godinez. Problems: Exam/Review of Systems Vital Signs Vitals Vital Signs Date Time Temp Pulse Resp B/P Pulse Ox O2 Delivery O2 Flow Rate FiO2 10/03/16 13:22 98 2.0 28 10/03/16 13:22 88 18 Aerosol T Tube 10/03/16 07:35 98.3 123/57 Intake and Output 10/02/16 10/02/16 10/03/16 15:00 23:00 07:00 Intake Total 660 ml Balance 660 ml Exam Constitutional: Awake Psych: no complaints Head: atraumatic, normocephalic Eyes: nl conjunctiva ENMT: nl external ears & nose Neck: other (Tracheostomy), supple Respiratory: slightly diminished breath sounds, Cardiovascular: regular rate and rhythm Gastrointestinal: non-tender, other (G-tube), soft Musculoskeletal: nl extremities to inspection Extremities: normal pulses Neurological: confused Additional Comments Right chest permacath Results Result Diagram: 10/03/1651210/03/16512 Results 24 hrs Laboratory Tests Test 10/02/16 18:13 10/02/16 20:47 10/03/16 00:20 10/03/16 05:13 Bedside Glucose 116 102 109 White Blood Count 9.5 Red Blood Count 2.59 L Hemoglobin 7.8 L Hematocrit 24.7 L Mean Corpuscular Volume 95.4 Mean Corpuscular Hemoglobin 30.1 Mean Corpuscular Hemoglobin Concent 31.6 L Red Cell Distribution Width 18.3 H Platelet Count 204 Mean Platelet Volume 10.6 H Neutrophils % 83.1 H Lymphocytes % 8.2 L Monocytes % 7.0 Eosinophils % 1.1 Basophils % 0.2 Nucleated Red Blood Cells % 0.3 H Neutrophils # 7.9 H Lymphocytes # 0.8 Monocytes # 0.7 Eosinophils # 0.1 Basophils # 0.0 Nucleated Red Blood Cells # 0.0 Sodium Level 137 Potassium Level 4.0 Chloride Level 99 Carbon Dioxide Level 32 H Anion Gap 10 Blood Urea Nitrogen 62 H Creatinine 3.73 H Glucose Level 96 Calcium Level 10.1 Test 10/03/16 05:40 10/03/16 12:12 Bedside Glucose 112 128 Medications Medications Current Medications Amlodipine Besylate (Norvasc) 5 mg DAILY GTB Last administered on 09/29/16 10: 35; Admin Dose 5 MG; Start 08/30/16 at 09:00 Clonidine (Catapres) 0.1 mg DAILY PRN GTB ELEVATED SYSTOLIC BP; Start 08/29/16 at 23:00 Doxazosin Mesylate (Cardura) 2 mg QHS GTB Last administered on 10/02/16 20:45 ; Admin Dose 2 MG; Start 08/30/16 at 21:00 Folic Acid (Folic Acid) 1 mg DAILY GTB Last administered on 10/03/16 08:21; Admin Dose 1 MG; Start 08/30/16 at 09:00 Hydralazine HCl (Apresoline) 50 mg Q8 GTB Last administered on 10/03/16 15:42 ; Admin Dose 50 MG; Start 08/30/16 at 06:00 Levetiracetam (Keppra Liquid) 500 mg BID GTB Last administered on 10/03/16 08: 22; Admin Dose 500 MG; Start 08/30/16 at 09:00 Metoprolol Tartrate (Lopressor) 25 mg BID GTB Last administered on 10/02/16 20 :44; Admin Dose 25 MG; Start 08/30/16 at 09:00 Multivit/Ca Carb/ B Cmplx/FA/Prenat (Leah-Juan Jose) 1 tab DAILY GTB Last administered on 10/03/16 08:21; Admin Dose 1 TAB; Start 08/30/16 at 09:00 Ondansetron HCl (Zofran Tab) 4 mg Q6H PRN GTB NAUSEA AND/OR VOMITING; Start at 23:00 Senna (Senokot) 1 tab DAILY GTB Last administered on 10/03/16 08:22; Admin Dose 1 TAB; Start 08/30/16 at 09:00 Zolpidem Tartrate (Ambien) 5 mg QHS PRN GTB INSOMNIA; Start 08/29/16 at 23:00 Lansoprazole (Prevacid) 30 mg DAILY@06 GTB Last administered on 10/03/16 05:41 ; Admin Dose 30 MG; Start 08/30/16 at 06:00 Acetaminophen (Tylenol Liquid) 650 mg Q4H PRN GTB PAIN AND OR ELEVATED TEMP Last administered on 10/02/16 05:42; Admin Dose 650 MG; Start 08/29/16 at 23:00 Insulin Aspart (Novolog Insulin Pen) NOVOLOG *MILD* ALGORI... Q6 SC Last administered on 10/01/16 12:02; Admin Dose 1 UNIT; Start 08/30/16 at 00:00 Miscellaneous Information 1 ea NOTE XX ; Start 08/31/16 at 07:00 Glucose (Glutose) 15 gm Q15M PRN PO DECREASED GLUCOSE; Start 08/31/16 at 07:00 Glucose (Glutose) 22.5 gm Q15M PRN PO DECREASED GLUCOSE; Start 08/31/16 at 07: 00 Dextrose (D50w Syringe) 25 ml Q15M PRN IV DECREASED GLUCOSE Last administered on 10/01/16 06:28; Admin Dose 25 ML; Start 08/31/16 at 07:00 Dextrose (D50w Syringe) 50 ml Q15M PRN IV DECREASED GLUCOSE; Start 08/31/16 at 07:00 Glucagon (Glucagen) 1 mg Q15M PRN IM DECREASED GLUCOSE; Start 08/31/16 at 07:00 Glucose (Glutose) 15 gm Q15M PRN BUCCAL DECREASED GLUCOSE; Start 08/31/16 at 07 :00 Bacitracin/ Polymyxin B Sulfate (Ak-Poly-Anais Oph Oint) 1 applic BID BOTH EYES Last administered on 10/03/16 08:21; Admin Dose 1 APPLIC; Start 09/08/16 at 12: 00 Insulin Detemir (Levemir) 4 unit HS SC Last administered on 10/02/16 20:49; Admin Dose 4 UNIT; Start 10/01/16 at 21:00 NOELLE JIMENEZ October 03, 2016 16:09
[2016-10-03] MEDS: DOXAZOSIN 2 MG TAB GTB SCH (20:59)
[2016-10-03] MEDS: INSULIN DETEMIR [LEVEMIR] 3ML CART SC SCH (21:03)
[2016-10-04] MEDS: INSULIN ASPART [NOVOLOG] 3 ML PEN SC SCH ×4 (06:00→20:48)
[2016-10-04 06:05] VITALS: BP 157/72; PULSE 103
[2016-10-04] MEDS: LANSOPRAZOLE 30 MG CAP GTB SCH (06:05)
[2016-10-04 06:49] LABS: ADD SCAN DIFF NO
[2016-10-04 07:05] LABS: BASOPHILS % 0.5 % (0.0-2.0); EOSINOPHILS # 0.2 10^3/ul (0.0-0.5); HEMATOCRIT 31.8 % (42.0-52.0); LYMPHOCYTES # 0.8 10^3/ul (0.8-2.9); LYMPHOCYTES % 9.9 % (15.0-51.0); MEAN CORPUSCULAR HEMOGLOBIN 29.5 pg (29.0-33.0); MEAN CORPUSCULAR HGB CONC 31.4 g/dl (32.0-37.0); MEAN CORPUSCULAR VOLUME 93.8 fl (82.0-101.0); MEAN PLATELET VOLUME 10.7 fl (7.4-10.4); MONOCYTE # 0.6 10^3/ul (0.3-0.9); MONOCYTES % 8.3 % (0.0-11.0); NEUTROPHIL # 5.9 10^3/ul (1.6-7.5); NEUTROPHILS % 78.4 % (39.0-77.0); NUCLEATED RED BLOOD CELLS% 0.3 /100WBC (0.0-0.0); PLATELET COUNT 207 10^3/UL (140-415); RED BLOOD COUNT 3.39 10^6/ul (4.70-6.10); RED CELL DISTRIBUTION WIDTH 18.8 % (11.5-14.5); WHITE BLOOD COUNT 7.6 10^3/ul (4.8-10.8)
[2016-10-04 07:23] LABS: CALCIUM 10.4 mg/dl (8.4-10.2); CREATININE 2.82 mg/dl (0.61-1.24); POTASSIUM 3.4 mmol/L (3.5-5.1)
[2016-10-04 07:37] VITALS: BP 163/72; RESP 18
[2016-10-04] MEDS: LEVALBUTEROL (NEB) 0.63 MG/3 ML AMP NEB SCH ×4 (08:51→20:13)
[2016-10-04] MEDS ORDERED: POTASSIUM CHLORIDE 20 MEQ POWDER FOR ORAL SOLN GTB ONE (09:30)
[2016-10-04] MEDS: SENNA TAB GTB SCH (09:47)
[2016-10-04] MEDS: METOPROLOL 25 MG TAB GTB SCH ×2 (09:47→20:47)
[2016-10-04] MEDS: MULTIVIT/CA CARB/B CMPLX/FA TAB GTB SCH (09:47)
[2016-10-04] MEDS: LEVETIRACETAM (100 MG/ML) 5ML CUP GTB SCH ×2 (09:47→20:48)
[2016-10-04] MEDS: FOLIC ACID 1 MG TAB GTB SCH (09:48)
[2016-10-04] MEDS: SEVELAMER CARBONATE 0.8 GM PKT GTB SCH ×3 (09:48→17:57)
[2016-10-04] MEDS: AMLODIPINE 5 MG TAB GTB SCH (09:48)
[2016-10-04] MEDS: BACITRACIN/POLYMYX 3.5 GM OPH OINT BOTH EYES SCH ×2 (09:49→20:48)
[2016-10-04 09:52] VITALS: BP 156/70; PULSE 109
--- NOTE | 2016-10-04 10:42 | PN ---
DATE: 10/04/2016 SUBJECTIVE: The patient is stable. No events overnight. No fevers, chills, nausea, vomiting. No s hortness of breath. OBJECTIVE: VITAL SIGNS: Blood pressure is 163/72, respirations 18, pulse 103, temperature 98.9. HEENT: Head is normocephalic. NECK: Supple. HEART: Regular rate. LUNGS: Show diminished breath sounds at the bases. ABDOMEN: Soft, nontender to palpation. No rebound or guarding. EXTREMITIES: Negative for clubbing, cyanosis. No edema. DERMATOLOGIC: No rashes. MUSCULOSKELETAL: No joint effusions. NEUROLOGIC: No change in exam. MEDICATIONS: The patient's medications have been reviewed. LABORATORY DATA: Shows sodium 143, potassium 3.4, BUN 39, creatinine 2.82. White count 7.6, hemogl obin 10.0, hematocrit 31.8, platelet count is 207. ASSESSMENT AND PLAN: 1. End-stage renal disease. Plan for dialysis tomorrow for 3 hours, 3 K bath, calcium 2.5. 2. Anemia. The patient is status post blood transfusion. Continue to monitor hemoglobin and hemat ocrit levels. Continue Epogen. 3. Mineral bone disorder. Continue to monitor calcium and phosphorus levels. 4. Hypertension. Continue current blood pressure regimen. 5. Chronic respiratory failure, status post tracheostomy. Continue current treatment plan. 6. Diabetes. Continue Accu-Cheks and insulin sliding scale. 7. Chronic encephalopathy, no change. 8. Seizure disorder. Continue current medical management. 9. Status post sepsis. 10. History of intracranial bleed. Dictated By: MARYURI WALLER/FRANCES Conf#: [id number] DID#: [id number]
--- NOTE | 2016-10-04 11:05 | PN ---
Date/Time of Note Date/Time of Note DATE: 10/04/16 TIME: 10:55 Assessment/Plan VTE Prophylaxis VTE Prophylaxis Intervention: SCD's Lines/Catheters IV [facility]ter [facility] (from [facility] perma cath Urinary Cath still in place: No Assessment/Plan Assessment/Plan - Hypokalemia- K repleted, BMP am - End-stage renal disease on hemodialysis. Continue hemodialysis per nephrology. Dr. Sales is following in nephrology consultation. - Hypertension. Continue metoprolol and hydralazine. - Anemia of chronic disease, transfuse as needed, continue Epogen. - Acute on chronic encephalopathy, resolved. MRI of the brain is negative for any acute stroke. - S/p sepsis Dr. Benjy lang is following in infection disease consultation. - Status post HCAP. Status post treatment - Chronic respiratory failure with tracheostomy, currently on T-piece. Dr. Freitas is following in pulmonology consultation - History of nontraumatic intracranial bleed, status post craniotomy. - Possible seizure disorder. Continue Keppra. - seiaure - Diabetes mellitus. Continue Levemir and NovoLog per mild algorithm sliding scale. Awaits nursing home facility placement Further recommendations based on clinical course. Plan of care discussed with Dr. Godinez. Subjective 24 Hr Interval Summary Free Text/Dictation alert, awake,responsive to name, afebrile, seems comfortable, hypokalemia- K repled , am labs, awaiting SNF.dw staff- no new issues reported. Exam/Review of Systems Vital Signs Vitals Vital Signs Date Time Temp Pulse Resp B/P Pulse Ox O2 Delivery O2 Flow Rate FiO2 10/04/16 09:52 109 156/70 10/04/16 08:51 22 99 Aerosol 5.0 28 10/04/16 07:37 98.9 Intake and Output 10/03/16 10/03/16 10/04/16 15:00 23:00 07:00 Intake Total 400 ml 1360 ml 680 ml Output Total 2400 ml Balance -2000 ml 1360 ml 680 ml Exam Constitutional: alert, well developed Eyes: EOMI, nl sclera Neck: non-tender, supple Respiratory: clear to auscultation, normal air movement Cardiovascular: nl pulses, regular rate and rhythm Gastrointestinal: non-tender, other, soft Extremities: normal pulses Neurological: other Lymph: nontender Results Result Diagram: 10/04/16 0621 10/04/16 0621 Results 24 hrs Laboratory Tests Test 10/03/16 12:12 10/03/16 17:55 10/03/16 21:00 10/03/16 23:25 Bedside Glucose 128 95 95 112 Test 10/04/16 06:03 10/04/16 06:12 10/04/16 06:21 Bedside Glucose 100 Lab Scanned Report BLOOD TRANSFUSION White Blood Count 7.6 Red Blood Count 3.39 #L Hemoglobin 10.0 #L Hematocrit 31.8 #L Mean Corpuscular Volume 93.8 Mean Corpuscular Hemoglobin 29.5 Mean Corpuscular Hemoglobin Concent 31.4 L Red Cell Distribution Width 18.8 H Platelet Count 207 Mean Platelet Volume 10.7 H Neutrophils % 78.4 H Lymphocytes % 9.9 L Monocytes % 8.3 Eosinophils % 2.0 Basophils % 0.5 Nucleated Red Blood Cells % 0.3 H Neutrophils # 5.9 Lymphocytes # 0.8 Monocytes # 0.6 Eosinophils # 0.2 Basophils # 0.0 Nucleated Red Blood Cells # 0.0 Sodium Level 143 Potassium Level 3.4 L Chloride Level 108 Carbon Dioxide Level 30 Anion Gap 8 Blood Urea Nitrogen 39 #H Creatinine 2.82 H Glucose Level 88 Calcium Level 10.4 H Medications Medications Current Medications Amlodipine Besylate (Norvasc) 5 mg DAILY GTB Last administered on 10/04/16 09: 48; Admin Dose 5 MG; Start 08/30/16 at 09:00 Clonidine (Catapres) 0.1 mg DAILY PRN GTB ELEVATED SYSTOLIC BP; Start 08/29/16 at 23:00 Doxazosin Mesylate (Cardura) 2 mg QHS GTB Last administered on 10/03/16 20:59 ; Admin Dose 2 MG; Start 08/30/16 at 21:00 Folic Acid (Folic Acid) 1 mg DAILY GTB Last administered on 10/04/16 09:48; Admin Dose 1 MG; Start 08/30/16 at 09:00 Hydralazine HCl (Apresoline) 50 mg Q8 GTB Last administered on 10/04/16 06:07; Admin Dose 50 MG; Start 08/30/16 at 06:00 Levetiracetam (Keppra Liquid) 500 mg BID GTB Last administered on 10/04/16 09: 47; Admin Dose 500 MG; Start 08/30/16 at 09:00 Metoprolol Tartrate (Lopressor) 25 mg BID GTB Last administered on 10/04/16 09: 47; Admin Dose 25 MG; Start 08/30/16 at 09:00 Multivit/Ca Carb/ B Cmplx/FA/Prenat (Leah-Juan Jose) 1 tab DAILY GTB Last administered on 10/04/16 09:47; Admin Dose 1 TAB; Start 08/30/16 at 09:00 Ondansetron HCl (Zofran Tab) 4 mg Q6H PRN GTB NAUSEA AND/OR VOMITING; Start at 23:00 Senna (Senokot) 1 tab DAILY GTB Last administered on 10/04/16 09:47; Admin Dose 1 TAB; Start 08/30/16 at 09:00 Zolpidem Tartrate (Ambien) 5 mg QHS PRN GTB INSOMNIA; Start 08/29/16 at 23:00 Lansoprazole (Prevacid) 30 mg DAILY@06 GTB Last administered on 10/04/16 06:05 ; Admin Dose 30 MG; Start 08/30/16 at 06:00 Acetaminophen (Tylenol Liquid) 650 mg Q4H PRN GTB PAIN AND OR ELEVATED TEMP Last administered on 10/02/16 05:42; Admin Dose 650 MG; Start 08/29/16 at 23:00 Insulin Aspart (Novolog Insulin Pen) NOVOLOG *MILD* ALGORI... Q6 SC Last administered on 10/01/16 12:02; Admin Dose 1 UNIT; Start 08/30/16 at 00:00 Miscellaneous Information 1 ea NOTE XX ; Start 08/31/16 at 07:00 Glucose (Glutose) 15 gm Q15M PRN PO DECREASED GLUCOSE; Start 08/31/16 at 07:00 Glucose (Glutose) 22.5 gm Q15M PRN PO DECREASED GLUCOSE; Start 08/31/16 at 07: 00 Dextrose (D50w Syringe) 25 ml Q15M PRN IV DECREASED GLUCOSE Last administered on 10/01/16 06:28; Admin Dose 25 ML; Start 08/31/16 at 07:00 Dextrose (D50w Syringe) 50 ml Q15M PRN IV DECREASED GLUCOSE; Start 08/31/16 at 07:00 Glucagon (Glucagen) 1 mg Q15M PRN IM DECREASED GLUCOSE; Start 08/31/16 at 07:00 Glucose (Glutose) 15 gm Q15M PRN BUCCAL DECREASED GLUCOSE; Start 08/31/16 at 07 :00 Bacitracin/ Polymyxin B Sulfate (Ak-Poly-Anais Oph Oint) 1 applic BID BOTH EYES Last administered on 10/04/16 09:49; Admin Dose 1 APPLIC; Start 09/08/16 at 12:00 Insulin Detemir (Levemir) 4 unit HS SC Last administered on 10/03/16 21:03; Admin Dose 4 UNIT; Start 10/01/16 at 21:00 CANDY JUAREZ Oct 04, 2016 11:05
[2016-10-04 15:03] VITALS: BP 174/77; PULSE 88
[2016-10-04 18:06] VITALS: BP 164/76; PULSE 94
[2016-10-04 19:23] VITALS: BP 163/77; RESP 18
[2016-10-04] MEDS: DOXAZOSIN 2 MG TAB GTB SCH (20:47)
[2016-10-05] VITALS (10 sets, daily range): BP systolic 122–173; BP diastolic 53–77; PULSE 70–85; RESP 18
[2016-10-05] MEDS: INSULIN ASPART [NOVOLOG] 3 ML PEN SC SCH ×6 (01:00→20:59)
[2016-10-05] MEDS: LANSOPRAZOLE 30 MG CAP GTB SCH (05:46)
[2016-10-05 06:02] LABS: ADD SCAN DIFF NO
[2016-10-05 06:09] LABS: BASOPHIL # 0.1 10^3/ul (0.0-0.1); BASOPHILS % 0.8 % (0.0-2.0); EOSINOPHILS # 0.2 10^3/ul (0.0-0.5); EOSINOPHILS % 3.7 % (0.0-7.0); HEMOGLOBIN 10.3 g/dl (14.0-18.0); LYMPHOCYTES % 16.4 % (15.0-51.0); MEAN CORPUSCULAR HEMOGLOBIN 29.2 pg (29.0-33.0); MEAN CORPUSCULAR HGB CONC 31.2 g/dl (32.0-37.0); MEAN CORPUSCULAR VOLUME 93.5 fl (82.0-101.0); MEAN PLATELET VOLUME 10.5 fl (7.4-10.4); MONOCYTE # 0.7 10^3/ul (0.3-0.9); MONOCYTES % 11.1 % (0.0-11.0); NEUTROPHIL # 4.2 10^3/ul (1.6-7.5); NEUTROPHILS % 66.6 % (39.0-77.0); NUCLEATED RED BLOOD CELLS% 0.3 /100WBC (0.0-0.0); PLATELET COUNT 225 10^3/UL (140-415); RED BLOOD COUNT 3.53 10^6/ul (4.70-6.10); RED CELL DISTRIBUTION WIDTH 17.9 % (11.5-14.5); WHITE BLOOD COUNT 6.3 10^3/ul (4.8-10.8)
[2016-10-05 06:46] LABS: CALCIUM 10.8 mg/dl (8.4-10.2); CREATININE 4.11 mg/dl (0.61-1.24); POTASSIUM 3.9 mmol/L (3.5-5.1)
[2016-10-05] MEDS: LEVALBUTEROL (NEB) 0.63 MG/3 ML AMP NEB SCH ×4 (08:00→20:08)
[2016-10-05] MEDS: SEVELAMER CARBONATE 0.8 GM PKT GTB SCH ×3 (08:15→19:00)
[2016-10-05] MEDS: BACITRACIN/POLYMYX 3.5 GM OPH OINT BOTH EYES SCH ×2 (09:00→20:54)
[2016-10-05] MEDS: LEVETIRACETAM (100 MG/ML) 5ML CUP GTB SCH ×2 (12:07→20:55)
[2016-10-05] MEDS: SENNA TAB GTB SCH (12:08)
[2016-10-05] MEDS: FOLIC ACID 1 MG TAB GTB SCH (12:08)
[2016-10-05] MEDS: MULTIVIT/CA CARB/B CMPLX/FA TAB GTB SCH (12:08)
[2016-10-05] MEDS: AMLODIPINE 5 MG TAB GTB SCH (12:09)
[2016-10-05] MEDS: METOPROLOL 25 MG TAB GTB SCH ×2 (12:09→20:55)
[2016-10-05] MEDS: EPOETIN 10000 UNITS/1 ML INJ (ESRD) SC SCH (14:07)
--- NOTE | 2016-10-05 14:24 | PN ---
Date/Time of Note Date/Time of Note DATE: 10/05/16 TIME: 14:24 Assessment/Plan VTE Prophylaxis VTE Prophylaxis Intervention: SCD's Lines/Catheters IV Catheter Type (from [facility]): Permacath Urinary Cath still in place: No Assessment/Plan Chief Complaint/Hosp Course No acute events overnight, patient looks comfortable on cool aerosol mist via tracheostomy. Assessment/Plan - End-stage renal disease on hemodialysis. Continue hemodialysis per nephrology. Dr. Sales is following in nephrology consultation. - Hypertension. Continue metoprolol and hydralazine. - Anemia of chronic disease, transfuse as needed, continue Epogen. - Acute on chronic encephalopathy, resolved. MRI of the brain is negative for any acute stroke. - History of nontraumatic intracranial bleed, status post craniotomy. - Chronic respiratory failure with tracheostomy, currently on T-piece. - Possible seizure disorder. Continue Keppra. - Diabetes mellitus. Continue Levemir and NovoLog per mild algorithm sliding scale. - S/p sepsis - Status post HCAP. Status post treatment [facility], discussed with case management no bed is available today. Further recommendations based on clinical course. Plan of care discussed with Dr. Godinez. Problems: Exam/Review of Systems Vital Signs Vitals Vital Signs Date Time Temp Pulse Resp B/P Pulse Ox O2 Delivery O2 Flow Rate FiO2 10/05/16 13:00 97 5.0 28 10/05/16 12:58 88 2 Aerosol 10/05/16 07:47 98.5 127/57 Intake and Output 10/04/16 10/04/16 10/05/16 15:00 23:00 07:00 Intake Total 660 ml 680 ml Balance 660 ml 680 ml Exam onstitutional: Awake Psych: no complaints Head: atraumatic, normocephalic Eyes: nl conjunctiva ENMT: nl external ears & nose Neck: other (Tracheostomy), supple Respiratory: slightly diminished breath sounds, Cardiovascular: regular rate and rhythm Gastrointestinal: non-tender, other (G-tube), soft Musculoskeletal: nl extremities to inspection Extremities: normal pulses Neurological: confused Additional Comments Right chest permacath Results Result Diagram: 10/05/16 0505 10/05/16 0505 Results 24 hrs Laboratory Tests Test 10/04/16 17:55 10/04/16 20:46 10/05/16 01:11 10/05/16 05:05 Bedside Glucose 114 122 118 White Blood Count 6.3 Red Blood Count 3.53 L Hemoglobin 10.3 L Hematocrit 33.0 L Mean Corpuscular Volume 93.5 Mean Corpuscular Hemoglobin 29.2 Mean Corpuscular Hemoglobin Concent 31.2 L Red Cell Distribution Width 17.9 H Platelet Count 225 Mean Platelet Volume 10.5 H Neutrophils % 66.6 Lymphocytes % 16.4 Monocytes % 11.1 H Eosinophils % 3.7 Basophils % 0.8 Nucleated Red Blood Cells % 0.3 H Neutrophils # 4.2 Lymphocytes # 1.0 Monocytes # 0.7 Eosinophils # 0.2 Basophils # 0.1 Nucleated Red Blood Cells # 0.0 Sodium Level 146 H Potassium Level 3.9 Chloride Level 105 Carbon Dioxide Level 28 Anion Gap 17 #H Blood Urea Nitrogen 64 H Creatinine 4.11 #H Glucose Level 94 Calcium Level 10.8 H Test 10/05/16 05:29 10/05/16 08:35 10/05/16 12:47 Bedside Glucose 108 145 125 Medications Medications Current Medications Amlodipine Besylate (Norvasc) 5 mg DAILY GTB Last administered on 10/05/16 12: 09; Admin Dose 5 MG; Start 08/30/16 at 09:00 Clonidine (Catapres) 0.1 mg DAILY PRN GTB ELEVATED SYSTOLIC BP; Start 08/29/16 at 23:00 Doxazosin Mesylate (Cardura) 2 mg QHS GTB Last administered on 10/04/16 20:47; Admin Dose 2 MG; Start 08/30/16 at 21:00 Folic Acid (Folic Acid) 1 mg DAILY GTB Last administered on 10/05/16 12:08; Admin Dose 1 MG; Start 08/30/16 at 09:00 Hydralazine HCl (Apresoline) 50 mg Q8 GTB Last administered on 10/05/16 14:07; Admin Dose 50 MG; Start 08/30/16 at 06:00 Levetiracetam (Keppra Liquid) 500 mg BID GTB Last administered on 10/05/16 12: 07; Admin Dose 500 MG; Start 08/30/16 at 09:00 Metoprolol Tartrate (Lopressor) 25 mg BID GTB Last administered on 10/05/16 12: 09; Admin Dose 25 MG; Start 08/30/16 at 09:00 Multivit/Ca Carb/ B Cmplx/FA/Prenat (Leah-Juan Jose) 1 tab DAILY GTB Last administered on 10/05/16 12:08; Admin Dose 1 TAB; Start 08/30/16 at 09:00 Ondansetron HCl (Zofran Tab) 4 mg Q6H PRN GTB NAUSEA AND/OR VOMITING; Start at 23:00 Senna (Senokot) 1 tab DAILY GTB Last administered on 10/05/16 12:08; Admin Dose 1 TAB; Start 08/30/16 at 09:00 Zolpidem Tartrate (Ambien) 5 mg QHS PRN GTB INSOMNIA; Start 08/29/16 at 23:00 Lansoprazole (Prevacid) 30 mg DAILY@06 GTB Last administered on 10/05/16 05:46 ; Admin Dose 30 MG; Start 08/30/16 at 06:00 Acetaminophen (Tylenol Liquid) 650 mg Q4H PRN GTB PAIN AND OR ELEVATED TEMP Last administered on 10/02/16 05:42; Admin Dose 650 MG; Start 08/29/16 at 23:00 Miscellaneous Information 1 ea NOTE XX ; Start 08/31/16 at 07:00 Glucose (Glutose) 15 gm Q15M PRN PO DECREASED GLUCOSE; Start 08/31/16 at 07:00 Glucose (Glutose) 22.5 gm Q15M PRN PO DECREASED GLUCOSE; Start 08/31/16 at 07: 00 Dextrose (D50w Syringe) 25 ml Q15M PRN IV DECREASED GLUCOSE Last administered on 10/01/16 06:28; Admin Dose 25 ML; Start 08/31/16 at 07:00 Dextrose (D50w Syringe) 50 ml Q15M PRN IV DECREASED GLUCOSE; Start 08/31/16 at 07:00 Glucagon (Glucagen) 1 mg Q15M PRN IM DECREASED GLUCOSE; Start 08/31/16 at 07:00 Glucose (Glutose) 15 gm Q15M PRN BUCCAL DECREASED GLUCOSE; Start 08/31/16 at 07 :00 Bacitracin/ Polymyxin B Sulfate (Ak-Poly-Anais Oph Oint) 1 applic BID BOTH EYES Last administered on 10/05/16 09:00; Admin Dose 1 APPLIC; Start 09/08/16 at 12:00 Insulin Aspart (Novolog Insulin Pen) NOVOLOG *MILD* ALGORI... Q4 SC Last administered on 10/05/16 08:58; Admin Dose 1 UNIT; Start 10/04/16 at 17:00 NOELLE JIMENEZ Oct 05, 2016 14:24
[2016-10-05] MEDS: DOXAZOSIN 2 MG TAB GTB SCH (20:55)
[2016-10-06] MEDS: INSULIN ASPART [NOVOLOG] 3 ML PEN SC SCH ×5 (01:00→17:00)
[2016-10-06] MEDS: LANSOPRAZOLE 30 MG CAP GTB SCH (05:34)
[2016-10-06 06:11] LABS: CALCIUM 10.2 mg/dl (8.4-10.2); CREATININE 3.06 mg/dl (0.61-1.24); POTASSIUM 3.7 mmol/L (3.5-5.1)
[2016-10-06 07:16] VITALS: BP 157/70; RESP 18
[2016-10-06] MEDS: LEVALBUTEROL (NEB) 0.63 MG/3 ML AMP NEB SCH ×4 (08:02→20:20)
[2016-10-06] MEDS: LEVETIRACETAM (100 MG/ML) 5ML CUP GTB SCH ×2 (09:58→21:29)
[2016-10-06] MEDS: MULTIVIT/CA CARB/B CMPLX/FA TAB GTB SCH (09:58)
[2016-10-06] MEDS: BACITRACIN/POLYMYX 3.5 GM OPH OINT BOTH EYES SCH ×2 (09:58→21:30)
[2016-10-06] MEDS: SEVELAMER CARBONATE 0.8 GM PKT GTB SCH ×3 (09:58→18:00)
[2016-10-06] MEDS: FOLIC ACID 1 MG TAB GTB SCH (09:58)
[2016-10-06] MEDS: AMLODIPINE 5 MG TAB GTB SCH (09:59)
[2016-10-06] MEDS: METOPROLOL 25 MG TAB GTB SCH ×2 (09:59→21:30)
[2016-10-06] MEDS: SENNA TAB GTB SCH (09:59)
--- NOTE | 2016-10-06 10:19 | CONS ---
Date/Time of Note Date/Time of Note DATE: 10/06/16 TIME: 10:11 Consult Date/Type/Reason Admit Date/Time Aug 29, 2016 at 16:21 Initial Consult Date 08/31/16 Type of Consultation: neph Ordering Provider: CANDY JUAREZ The patient is stable. No events overnight. No fevers, chills, nausea, vomiting. No shortness of breath. OBJECTIVE: HEENT: Head is normocephalic. NECK: Supple. HEART: Regular rate. LUNGS: Show diminished breath sounds at the bases. ABDOMEN: Soft, nontender to palpation. No rebound or guarding. EXTREMITIES: Negative for clubbing, cyanosis. No edema. DERMATOLOGIC: No rashes. MUSCULOSKELETAL: No joint effusions. NEUROLOGIC: No change in exam. MEDICATIONS: The patient's medications have been reviewed. Objective Vital Signs Date Time Temp Pulse Resp B/P Pulse Ox O2 Delivery O2 Flow Rate FiO2 10/06/16 08:04 82 20 99 Aerosol 5.0 28 10/06/16 07:16 98.0 157/70 Intake and Output 10/05/16 10/05/16 10/06/16 15:00 23:00 07:00 Intake Total 300 ml 800 ml Output Total 3300 ml Balance -3000 ml 800 ml Results/Medications Result Diagram: 10/05/16 0505 10/06/16 0515 Results 24 hrs Laboratory Tests Test 10/05/16 12:47 10/05/16 17:58 10/05/16 20:58 10/06/16 01:29 Bedside Glucose 125 106 117 100 Test 10/06/16 05:15 10/06/16 05:32 10/06/16 09:54 Sodium Level 138 Potassium Level 3.7 Chloride Level 98 Carbon Dioxide Level 30 Anion Gap 14 Blood Urea Nitrogen 51 H Creatinine 3.06 #H Glucose Level 103 Calcium Level 10.2 Bedside Glucose 99 103 Medications Current Medications Amlodipine Besylate (Norvasc) 5 mg DAILY GTB Last administered on 10/06/16 09: 59; Admin Dose 5 MG; Start 08/30/16 at 09:00 Clonidine (Catapres) 0.1 mg DAILY PRN GTB ELEVATED SYSTOLIC BP; Start 08/29/16 at 23:00 Doxazosin Mesylate (Cardura) 2 mg QHS GTB Last administered on 10/05/16 20:55; Admin Dose 2 MG; Start 08/30/16 at 21:00 Folic Acid (Folic Acid) 1 mg DAILY GTB Last administered on 10/06/16 09:58; Admin Dose 1 MG; Start 08/30/16 at 09:00 Hydralazine HCl (Apresoline) 50 mg Q8 GTB Last administered on 10/06/16 05:36; Admin Dose 50 MG; Start 08/30/16 at 06:00 Levetiracetam (Keppra Liquid) 500 mg BID GTB Last administered on 10/06/16 09: 58; Admin Dose 500 MG; Start 08/30/16 at 09:00 Metoprolol Tartrate (Lopressor) 25 mg BID GTB Last administered on 10/06/16 09: 59; Admin Dose 25 MG; Start 08/30/16 at 09:00 Multivit/Ca Carb/ B Cmplx/FA/Prenat (Leah-Juan Jose) 1 tab DAILY GTB Last administered on 10/06/16 09:58; Admin Dose 1 TAB; Start 08/30/16 at 09:00 Ondansetron HCl (Zofran Tab) 4 mg Q6H PRN GTB NAUSEA AND/OR VOMITING; Start at 23:00 Senna (Senokot) 1 tab DAILY GTB Last administered on 10/06/16 09:59; Admin Dose 1 TAB; Start 08/30/16 at 09:00 Zolpidem Tartrate (Ambien) 5 mg QHS PRN GTB INSOMNIA; Start 08/29/16 at 23:00 Lansoprazole (Prevacid) 30 mg DAILY@06 GTB Last administered on 10/06/16 05:34 ; Admin Dose 30 MG; Start 08/30/16 at 06:00 Acetaminophen (Tylenol Liquid) 650 mg Q4H PRN GTB PAIN AND OR ELEVATED TEMP Last administered on 10/02/16 05:42; Admin Dose 650 MG; Start 08/29/16 at 23:00 Miscellaneous Information 1 ea NOTE XX ; Start 08/31/16 at 07:00 Glucose (Glutose) 15 gm Q15M PRN PO DECREASED GLUCOSE; Start 08/31/16 at 07:00 Glucose (Glutose) 22.5 gm Q15M PRN PO DECREASED GLUCOSE; Start 08/31/16 at 07: 00 Dextrose (D50w Syringe) 25 ml Q15M PRN IV DECREASED GLUCOSE Last administered on 10/01/16 06:28; Admin Dose 25 ML; Start 08/31/16 at 07:00 Dextrose (D50w Syringe) 50 ml Q15M PRN IV DECREASED GLUCOSE; Start 08/31/16 at 07:00 Glucagon (Glucagen) 1 mg Q15M PRN IM DECREASED GLUCOSE; Start 08/31/16 at 07:00 Glucose (Glutose) 15 gm Q15M PRN BUCCAL DECREASED GLUCOSE; Start 08/31/16 at 07 :00 Bacitracin/ Polymyxin B Sulfate (Ak-Poly-Anais Oph Oint) 1 applic BID BOTH EYES Last administered on 10/06/16 09:58; Admin Dose 1 APPLIC; Start 09/08/16 at 12:00 Insulin Aspart (Novolog Insulin Pen) NOVOLOG *MILD* ALGORI... Q4 SC Last administered on 10/05/16 08:58; Admin Dose 1 UNIT; Start 10/04/16 at 17:00 Assessment/Plan Chief Complaint/Hosp Course 1. End-stage renal disease. Plan for dialysis qod. assess daily for hd needs. all meds dosed ok 2. Anemia. The patient is status post blood transfusion. Continue to monitor hemoglobin and hematocrit levels. Continue Epogen. 3. Mineral bone disorder. Continue to monitor calcium and phosphorus levels. 4. Hypertension. Continue current blood pressure regimen. 5. Chronic respiratory failure, status post tracheostomy. Continue current treatment plan. 6. Diabetes. Continue Accu-Cheks and insulin sliding scale. 7. Chronic encephalopathy, no change. 8. Seizure disorder. Continue current medical management. 9. Status post sepsis. 10. History of intracranial bleed. Problems: KIM PEARCE MD Oct 06, 2016 10:19
[2016-10-06 19:17] VITALS: BP 145/64; RESP 20
[2016-10-06] MEDS: DOXAZOSIN 2 MG TAB GTB SCH (21:29)
[2016-10-07] VITALS (11 sets, daily range): BP systolic 110–184; BP diastolic 60–86; PULSE 90–102; RESP 18–19
[2016-10-07] MEDS: LANSOPRAZOLE 30 MG CAP GTB SCH (05:35)
[2016-10-07 05:57] LABS: ADD SCAN DIFF NO; BASOPHILS % 0.4 % (0.0-2.0); EOSINOPHILS # 0.2 10^3/ul (0.0-0.5); EOSINOPHILS % 4.6 % (0.0-7.0); HEMATOCRIT 30.8 % (42.0-52.0); LYMPHOCYTES # 0.8 10^3/ul (0.8-2.9); MEAN CORPUSCULAR HEMOGLOBIN 29.7 pg (29.0-33.0); MEAN CORPUSCULAR HGB CONC 32.5 g/dl (32.0-37.0); MEAN CORPUSCULAR VOLUME 91.4 fl (82.0-101.0); MEAN PLATELET VOLUME 10.1 fl (7.4-10.4); MONOCYTE # 0.5 10^3/ul (0.3-0.9); NEUTROPHIL # 3.7 10^3/ul (1.6-7.5); NEUTROPHILS % 69.9 % (39.0-77.0); PLATELET COUNT 233 10^3/UL (140-415); RED BLOOD COUNT 3.37 10^6/ul (4.70-6.10); RED CELL DISTRIBUTION WIDTH 16.1 % (11.5-14.5); WHITE BLOOD COUNT 5.3 10^3/ul (4.8-10.8)
[2016-10-07 06:21] LABS: CALCIUM 10.4 mg/dl (8.4-10.2); CREATININE 4.24 mg/dl (0.61-1.24); POTASSIUM 3.8 mmol/L (3.5-5.1)
[2016-10-07] MEDS: LEVALBUTEROL (NEB) 0.63 MG/3 ML AMP NEB SCH ×4 (07:46→19:22)
[2016-10-07] MEDS: SEVELAMER CARBONATE 0.8 GM PKT GTB SCH ×3 (08:30→18:00)
--- NOTE | 2016-10-07 08:34 | CONS ---
Date/Time of Note Date/Time of Note DATE: 10/07/16 TIME: 08:32 Consult Date/Type/Reason Admit Date/Time Aug 29, 2016 at 16:21 Initial Consult Date 08/31/16 Type of Consultation: neph Ordering Provider: CANDY JUAREZ The patient is stable. No events overnight. No fevers, chills, nausea, vomiting. No shortness of breath. on hd today. poc reviewed with dr. fortune. OBJECTIVE: HEENT: Head is normocephalic. NECK: Supple. HEART: Regular rate. LUNGS: Show diminished breath sounds at the bases. ABDOMEN: Soft, nontender to palpation. No rebound or guarding. EXTREMITIES: Negative for clubbing, cyanosis. No edema. DERMATOLOGIC: No rashes. MUSCULOSKELETAL: No joint effusions. NEUROLOGIC: No change in exam. MEDICATIONS: The patient's medications have been reviewed. Objective Vital Signs Date Time Temp Pulse Resp B/P Pulse Ox O2 Delivery O2 Flow Rate FiO2 10/07/16 07:48 80 18 98 5.0 28 10/07/16 07:45 97.5 184/78 10/07/16 01:30 Aerosol T Tube Intake and Output 10/06/16 10/06/16 10/07/16 15:00 23:00 07:00 Intake Total 660 ml 750 ml Balance 660 ml 750 ml Results/Medications Result Diagram: 10/07/16 0509 10/07/16 0509 Results 24 hrs Laboratory Tests Test 10/06/16 09:54 10/06/16 12:46 10/06/16 17:07 10/07/16 05:09 Bedside Glucose 103 120 105 White Blood Count 5.3 Red Blood Count 3.37 L Hemoglobin 10.0 L Hematocrit 30.8 L Mean Corpuscular Volume 91.4 Mean Corpuscular Hemoglobin 29.7 Mean Corpuscular Hemoglobin Concent 32.5 Red Cell Distribution Width 16.1 H Platelet Count 233 Mean Platelet Volume 10.1 Neutrophils % 69.9 Lymphocytes % 15.0 Monocytes % 9.0 Eosinophils % 4.6 Basophils % 0.4 Nucleated Red Blood Cells % 0.0 Neutrophils # 3.7 Lymphocytes # 0.8 Monocytes # 0.5 Eosinophils # 0.2 Basophils # 0.0 Nucleated Red Blood Cells # 0.0 Sodium Level 135 Potassium Level 3.8 Chloride Level 96 L Carbon Dioxide Level 30 Anion Gap 13 Blood Urea Nitrogen 77 H Creatinine 4.24 #H Glucose Level 106 Hemoglobin A1c 5.0 Calcium Level 10.4 H Medications Current Medications Amlodipine Besylate (Norvasc) 5 mg DAILY GTB Last administered on 10/06/16 09: 59; Admin Dose 5 MG; Start 08/30/16 at 09:00 Clonidine (Catapres) 0.1 mg DAILY PRN GTB ELEVATED SYSTOLIC BP; Start 08/29/16 at 23:00 Doxazosin Mesylate (Cardura) 2 mg QHS GTB Last administered on 10/06/16 21:29; Admin Dose 2 MG; Start 08/30/16 at 21:00 Folic Acid (Folic Acid) 1 mg DAILY GTB Last administered on 10/06/16 09:58; Admin Dose 1 MG; Start 08/30/16 at 09:00 Hydralazine HCl (Apresoline) 50 mg Q8 GTB Last administered on 10/07/16 05:35; Admin Dose 50 MG; Start 08/30/16 at 06:00 Levetiracetam (Keppra Liquid) 500 mg BID GTB Last administered on 10/06/16 21: 29; Admin Dose 500 MG; Start 08/30/16 at 09:00 Metoprolol Tartrate (Lopressor) 25 mg BID GTB Last administered on 10/06/16 21: 30; Admin Dose 25 MG; Start 08/30/16 at 09:00 Multivit/Ca Carb/ B Cmplx/FA/Prenat (Leah-Juan Jose) 1 tab DAILY GTB Last administered on 10/06/16 09:58; Admin Dose 1 TAB; Start 08/30/16 at 09:00 Ondansetron HCl (Zofran Tab) 4 mg Q6H PRN GTB NAUSEA AND/OR VOMITING; Start at 23:00 Senna (Senokot) 1 tab DAILY GTB Last administered on 10/06/16 09:59; Admin Dose 1 TAB; Start 08/30/16 at 09:00 Zolpidem Tartrate (Ambien) 5 mg QHS PRN GTB INSOMNIA; Start 08/29/16 at 23:00 Lansoprazole (Prevacid) 30 mg DAILY@06 GTB Last administered on 10/07/16 05:35 ; Admin Dose 30 MG; Start 08/30/16 at 06:00 Acetaminophen (Tylenol Liquid) 650 mg Q4H PRN GTB PAIN AND OR ELEVATED TEMP Last administered on 10/02/16 05:42; Admin Dose 650 MG; Start 08/29/16 at 23:00 Miscellaneous Information 1 ea NOTE XX ; Start 08/31/16 at 07:00 Glucose (Glutose) 15 gm Q15M PRN PO DECREASED GLUCOSE; Start 08/31/16 at 07:00 Glucose (Glutose) 22.5 gm Q15M PRN PO DECREASED GLUCOSE; Start 08/31/16 at 07: 00 Dextrose (D50w Syringe) 25 ml Q15M PRN IV DECREASED GLUCOSE Last administered on 10/01/16 06:28; Admin Dose 25 ML; Start 08/31/16 at 07:00 Dextrose (D50w Syringe) 50 ml Q15M PRN IV DECREASED GLUCOSE; Start 08/31/16 at 07:00 Glucagon (Glucagen) 1 mg Q15M PRN IM DECREASED GLUCOSE; Start 08/31/16 at 07:00 Glucose (Glutose) 15 gm Q15M PRN BUCCAL DECREASED GLUCOSE; Start 08/31/16 at 07 :00 Bacitracin/ Polymyxin B Sulfate (Ak-Poly-Anais Oph Oint) 1 applic BID BOTH EYES Last administered on 10/06/16 21:30; Admin Dose 1 APPLIC; Start 09/08/16 at 12:00 Assessment/Plan Chief Complaint/Hosp Course 1. End-stage renal disease. Plan for dialysis qod. assess daily for hd needs. all meds dosed ok 2. Anemia. The patient is status post blood transfusion. Continue to monitor hemoglobin and hematocrit levels. Continue Epogen. 3. Mineral bone disorder. Continue to monitor calcium and phosphorus levels. 4. Hypertension. Continue current blood pressure regimen. 5. Chronic respiratory failure, status post tracheostomy. Continue current treatment plan. 6. Diabetes. Continue Accu-Cheks and insulin sliding scale. 7. Chronic encephalopathy, no change. 8. Seizure disorder. Continue current medical management. 9. Status post sepsis. 10. History of intracranial bleed. Problems: KIM PEARCE MD Oct 07, 2016 08:34
[2016-10-07] MEDS: BACITRACIN/POLYMYX 3.5 GM OPH OINT BOTH EYES SCH (08:35)
[2016-10-07] MEDS: LEVETIRACETAM (100 MG/ML) 5ML CUP GTB SCH ×2 (09:00→20:21)
[2016-10-07] MEDS: FOLIC ACID 1 MG TAB GTB SCH (09:00)
[2016-10-07] MEDS: MULTIVIT/CA CARB/B CMPLX/FA TAB GTB SCH (09:00)
[2016-10-07] MEDS: METOPROLOL 25 MG TAB GTB SCH ×2 (09:00→20:21)
[2016-10-07] MEDS: AMLODIPINE 5 MG TAB GTB SCH (09:00)
[2016-10-07] MEDS: SENNA TAB GTB SCH (09:00)
--- NOTE | 2016-10-07 12:50 | PN ---
Date/Time of Note Date/Time of Note DATE: 10/06/16 TIME: 12:33 Assessment/Plan VTE Prophylaxis VTE Prophylaxis Intervention: other Lines/Catheters IV [facility] Type (from [facility] Saline Lock Urinary Cath still in place: No Assessment/Plan Assessment/Plan - End-stage renal disease on hemodialysis. Continue hemodialysis per nephrology. Dr. Sales is following in nephrology consultation. - Hypertension. Continue metoprolol and hydralazine. - Anemia of chronic disease, transfuse as needed, continue Epogen. - Acute on chronic encephalopathy, resolved. MRI of the brain is negative for any acute stroke. - History of nontraumatic intracranial bleed, status post craniotomy. - Chronic respiratory failure with tracheostomy, currently on T-piece. - Possible seizure disorder. Continue Keppra. - Diabetes mellitus. Continue Levemir and NovoLog per mild algorithm sliding scale. - S/p sepsis - Status post HCAP. Status post treatment Awaits senior care facility placement, discussed with case management no bed is available today. Further recommendations based on clinical course. Plan of care discussed with Dr. Godinez. Subjective 24 Hr Interval Summary Free Text/Dictation NAD, remains on cool aerosol mist via tracheostomy, afebrile, patient seems comfortable .No acute events overnight reported by staff. pending placement. Exam/Review of Systems Vital Signs Vitals Vital Signs Date Time Temp Pulse Resp B/P Pulse Ox O2 Delivery O2 Flow Rate FiO2 10/06/16 08:04 82 20 99 Aerosol 5.0 28 10/06/16 07:16 98.0 157/70 Intake and Output 10/05/16 10/05/16 10/06/16 15:00 23:00 07:00 Intake Total 300 ml 800 ml Output Total 3300 ml Balance -3000 ml 800 ml Exam Constitutional: alert, well developed Respiratory: clear to auscultation, normal air movement Cardiovascular: nl pulses, regular rate and rhythm Gastrointestinal: non-tender, soft Neurological: confused, other (alert, awake, doesnot follow commands) Skin: laceration Lymph: nontender Results Result Diagram: 10/05/16 0505 10/06/16 0515 Results 24 hrs Laboratory Tests Test 10/05/16 12:47 10/05/16 17:58 10/05/16 20:58 10/06/16 01:29 Bedside Glucose 125 106 117 100 Test 10/06/16 05:15 10/06/16 05:32 10/06/16 09:54 Sodium Level 138 Potassium Level 3.7 Chloride Level 98 Carbon Dioxide Level 30 Anion Gap 14 Blood Urea Nitrogen 51 H Creatinine 3.06 #H Glucose Level 103 Calcium Level 10.2 Bedside Glucose 99 103 Medications Medications Current Medications Amlodipine Besylate (Norvasc) 5 mg DAILY GTB Last administered on 10/06/16 09: 59; Admin Dose 5 MG; Start 08/30/16 at 09:00 Clonidine (Catapres) 0.1 mg DAILY PRN GTB ELEVATED SYSTOLIC BP; Start 08/29/16 at 23:00 Doxazosin Mesylate (Cardura) 2 mg QHS GTB Last administered on 10/05/16 20:55; Admin Dose 2 MG; Start 08/30/16 at 21:00 Folic Acid (Folic Acid) 1 mg DAILY GTB Last administered on 10/06/16 09:58; Admin Dose 1 MG; Start 08/30/16 at 09:00 Hydralazine HCl (Apresoline) 50 mg Q8 GTB Last administered on 10/06/16 05:36; Admin Dose 50 MG; Start 08/30/16 at 06:00 Levetiracetam (Keppra Liquid) 500 mg BID GTB Last administered on 10/06/16 09: 58; Admin Dose 500 MG; Start 08/30/16 at 09:00 Metoprolol Tartrate (Lopressor) 25 mg BID GTB Last administered on 10/06/16 09: 59; Admin Dose 25 MG; Start 08/30/16 at 09:00 Multivit/Ca Carb/ B Cmplx/FA/Prenat (Leah-Juan Jose) 1 tab DAILY GTB Last administered on 10/06/16 09:58; Admin Dose 1 TAB; Start 08/30/16 at 09:00 Ondansetron HCl (Zofran Tab) 4 mg Q6H PRN GTB NAUSEA AND/OR VOMITING; Start at 23:00 Senna (Senokot) 1 tab DAILY GTB Last administered on 10/06/16 09:59; Admin Dose 1 TAB; Start 08/30/16 at 09:00 Zolpidem Tartrate (Ambien) 5 mg QHS PRN GTB INSOMNIA; Start 08/29/16 at 23:00 Lansoprazole (Prevacid) 30 mg DAILY@06 GTB Last administered on 10/06/16 05:34 ; Admin Dose 30 MG; Start 08/30/16 at 06:00 Acetaminophen (Tylenol Liquid) 650 mg Q4H PRN GTB PAIN AND OR ELEVATED TEMP Last administered on 10/02/16 05:42; Admin Dose 650 MG; Start 08/29/16 at 23:00 Miscellaneous Information 1 ea NOTE XX ; Start 08/31/16 at 07:00 Glucose (Glutose) 15 gm Q15M PRN PO DECREASED GLUCOSE; Start 08/31/16 at 07:00 Glucose (Glutose) 22.5 gm Q15M PRN PO DECREASED GLUCOSE; Start 08/31/16 at 07: 00 Dextrose (D50w Syringe) 25 ml Q15M PRN IV DECREASED GLUCOSE Last administered on 10/01/16 06:28; Admin Dose 25 ML; Start 08/31/16 at 07:00 Dextrose (D50w Syringe) 50 ml Q15M PRN IV DECREASED GLUCOSE; Start 08/31/16 at 07:00 Glucagon (Glucagen) 1 mg Q15M PRN IM DECREASED GLUCOSE; Start 08/31/16 at 07:00 Glucose (Glutose) 15 gm Q15M PRN BUCCAL DECREASED GLUCOSE; Start 08/31/16 at 07 :00 Bacitracin/ Polymyxin B Sulfate (Ak-Poly-Anais Oph Oint) 1 applic BID BOTH EYES Last administered on 10/06/16 09:58; Admin Dose 1 APPLIC; Start 09/08/16 at 12:00 Insulin Aspart (Novolog Insulin Pen) NOVOLOG *MILD* ALGORI... Q4 SC Last administered on 10/05/16 08:58; Admin Dose 1 UNIT; Start 10/04/16 at 17:00 CANDY JUAREZ Oct 06, 2016 12:44
--- NOTE | 2016-10-07 13:04 | PN ---
Date/Time of Note Date/Time of Note DATE: 10/07/16 TIME: 13:01 Assessment/Plan VTE Prophylaxis VTE Prophylaxis Intervention: other Lines/Catheters IV Catheter Type (from [facility] [place] Saline Lock Urinary Cath still in place: No Assessment/Plan Assessment/Plan - Stool OB positive - will get GI consutl- Dr Vasquez notified - monitor for gi bleeding - End-stage renal disease on hemodialysis. Continue hemodialysis per nephrology. Dr. Sales is following in nephrology consultation. - Hypertension. Continue metoprolol and hydralazine. - Anemia of chronic disease, transfuse as needed, continue Epogen. - Acute on chronic encephalopathy, resolved. MRI of the brain is negative for any acute stroke. - History of nontraumatic intracranial bleed, status post craniotomy. - Chronic respiratory failure with tracheostomy, currently on T-piece. - Possible seizure disorder. Continue Keppra. - Diabetes mellitus. Continue Levemir and NovoLog per mild algorithm sliding scale. - S/p sepsis - Status post HCAP. Status post treatment Awaits alf facility placement, discussed with case management no bed is available today. Further recommendations based on clinical course. Plan of care discussed with Dr. Godinez. Exam/Review of Systems Vital Signs Vitals Vital Signs Date Time Temp Pulse Resp B/P Pulse Ox O2 Delivery O2 Flow Rate FiO2 10/07/16 11:56 81 15 98 T Tube 5.0 28 10/07/16 07:45 97.5 184/78 Intake and Output 10/06/16 10/06/16 10/07/16 15:00 23:00 07:00 Intake Total 660 ml 750 ml Balance 660 ml 750 ml Exam Constitutional: alert, well developed Respiratory: clear to auscultation, normal air movement Cardiovascular: nl pulses, regular rate and rhythm Gastrointestinal: non-tender, soft Musculoskeletal: nl extremities to inspection Extremities: normal pulses Neurological: nl mental status Skin: other Lymph: nontender Results Result Diagram: 10/07/16 0509 10/07/16 0509 Results 24 hrs Laboratory Tests Test 10/06/16 17:07 10/07/16 05:09 Bedside Glucose 105 White Blood Count 5.3 Red Blood Count 3.37 L Hemoglobin 10.0 L Hematocrit 30.8 L Mean Corpuscular Volume 91.4 Mean Corpuscular Hemoglobin 29.7 Mean Corpuscular Hemoglobin Concent 32.5 Red Cell Distribution Width 16.1 H Platelet Count 233 Mean Platelet Volume 10.1 Neutrophils % 69.9 Lymphocytes % 15.0 Monocytes % 9.0 Eosinophils % 4.6 Basophils % 0.4 Nucleated Red Blood Cells % 0.0 Neutrophils # 3.7 Lymphocytes # 0.8 Monocytes # 0.5 Eosinophils # 0.2 Basophils # 0.0 Nucleated Red Blood Cells # 0.0 Sodium Level 135 Potassium Level 3.8 Chloride Level 96 L Carbon Dioxide Level 30 Anion Gap 13 Blood Urea Nitrogen 77 H Creatinine 4.24 #H Glucose Level 106 Hemoglobin A1c 5.0 Calcium Level 10.4 H Medications Medications Current Medications Amlodipine Besylate (Norvasc) 5 mg DAILY GTB Last administered on 10/06/16 09: 59; Admin Dose 5 MG; Start 08/30/16 at 09:00 Clonidine (Catapres) 0.1 mg DAILY PRN GTB ELEVATED SYSTOLIC BP; Start 08/29/16 at 23:00 Doxazosin Mesylate (Cardura) 2 mg QHS GTB Last administered on 10/06/16 21:29; Admin Dose 2 MG; Start 08/30/16 at 21:00 Folic Acid (Folic Acid) 1 mg DAILY GTB Last administered on 10/06/16 09:58; Admin Dose 1 MG; Start 08/30/16 at 09:00 Hydralazine HCl (Apresoline) 50 mg Q8 GTB Last administered on 10/07/16 05:35; Admin Dose 50 MG; Start 08/30/16 at 06:00 Levetiracetam (Keppra Liquid) 500 mg BID GTB Last administered on 10/06/16 21: 29; Admin Dose 500 MG; Start 08/30/16 at 09:00 Metoprolol Tartrate (Lopressor) 25 mg BID GTB Last administered on 10/06/16 21: 30; Admin Dose 25 MG; Start 08/30/16 at 09:00 Multivit/Ca Carb/ B Cmplx/FA/Prenat (Leah-Juan Jose) 1 tab DAILY GTB Last administered on 10/06/16 09:58; Admin Dose 1 TAB; Start 08/30/16 at 09:00 Ondansetron HCl (Zofran Tab) 4 mg Q6H PRN GTB NAUSEA AND/OR VOMITING; Start at 23:00 Senna (Senokot) 1 tab DAILY GTB Last administered on 10/06/16 09:59; Admin Dose 1 TAB; Start 08/30/16 at 09:00 Zolpidem Tartrate (Ambien) 5 mg QHS PRN GTB INSOMNIA; Start 08/29/16 at 23:00 Lansoprazole (Prevacid) 30 mg DAILY@06 GTB Last administered on 10/07/16 05:35 ; Admin Dose 30 MG; Start 08/30/16 at 06:00 Acetaminophen (Tylenol Liquid) 650 mg Q4H PRN GTB PAIN AND OR ELEVATED TEMP Last administered on 10/02/16 05:42; Admin Dose 650 MG; Start 08/29/16 at 23:00 Miscellaneous Information 1 ea NOTE XX ; Start 08/31/16 at 07:00 Glucose (Glutose) 15 gm Q15M PRN PO DECREASED GLUCOSE; Start 08/31/16 at 07:00 Glucose (Glutose) 22.5 gm Q15M PRN PO DECREASED GLUCOSE; Start 08/31/16 at 07: 00 Dextrose (D50w Syringe) 25 ml Q15M PRN IV DECREASED GLUCOSE Last administered on 10/01/16 06:28; Admin Dose 25 ML; Start 08/31/16 at 07:00 Dextrose (D50w Syringe) 50 ml Q15M PRN IV DECREASED GLUCOSE; Start 08/31/16 at 07:00 Glucagon (Glucagen) 1 mg Q15M PRN IM DECREASED GLUCOSE; Start 08/31/16 at 07:00 Glucose (Glutose) 15 gm Q15M PRN BUCCAL DECREASED GLUCOSE; Start 08/31/16 at 07 :00 Tobramycin/ Dexamethasone (Tobradex Oph Drop) 2 drop TID BOTH EYES ; Start at 13:00; Stop 10/13/16 at 12:59 CANDY JUAREZ Oct 07, 2016 13:04
[2016-10-07] MEDS: TOBRAMYCIN/DEXAMETH 2.5 ML OPH BOTH EYES SCH ×2 (15:30→20:22)
[2016-10-07] MEDS: DOXAZOSIN 2 MG TAB GTB SCH (20:21)
--- NOTE | 2016-10-07 23:45 | CONS ---
DATE OF ADMISSION: 08/29/2016 DATE OF CONSULTATION: Dear Dr. Arriaga: HISTORY OF PRESENT ILLNESS: Thank you for your referral. The patient is a 66-year-old male with a history of CVA, status post craniostomy, end-stage renal disease on dialysis, hypertension, status p ost G-tube, diabetes mellitus, vent dependent respiratory failure was admitted from [facility] for a fever. Appropriate blood cultures were sent and patient was started on an antibiotic. The di agnosis of healthcare-acquired pneumonia was made. During his stay in the hospital, the patient's h ematocrit dropped down, requiring blood transfusion and stool for occult blood was reported positive , so GI consult was called in. PAST MEDICAL HISTORY: As described in the history of present illness, diabetes mellitus, nontraumat ic intracranial bleed, hypertension, end-stage renal disease, vent dependent respiratory failure. ALLERGIES: NONE. SOCIAL HISTORY: History of nicotine use in the past. Alcohol use, cocaine. FAMILY HISTORY: Unable to obtain. REVIEW OF SYSTEMS: Unable to do it. PHYSICAL EXAMINATION: VITAL SIGNS: Stable. CARDIOVASCULAR: No murmur, gallop, or click. LUNGS: Clear. The patient is on vent. ABDOMEN: Benign. He has got a G-tube. EXTREMITIES: No edema. CENTRAL NERVOUS SYSTEM: The patient is confused. LABORATORY DATA: Hematocrit on 10/03/2016 was 24 and, after transfusion, it became 30.8. The patie nt's serology was sent for influenza, which was negative. Stool for occult blood was reported posit nighat. INR was within normal limits. I do not see any liver function test for the last 15 days. MEDICATIONS: All reviewed. He is on: 1. Tobramycin. 2. Norvasc. 3. Folic acid. 4. Keppra. 5. Lopressor. 6. Apresoline. 7. Prevacid. IMPRESSION: 1. Ventilator dependent respiratory failure. 2. Pneumonia. 3. Dysphagia status post percutaneous endoscopic gastrostomy. 4. End-stage renal disease on dialysis. 5. Positive stool guaiac. 6. Anemia. PLAN: At this point, is to continue PPI. Will monitor H and H. If the hematocrit drops significan tly, then will definitely proceed with EGD and colonoscopy. Dictated By: NALINI MONDRAGON/FRANCES Conf#: [id number] DID#: [id number] CC: PHILL ARRIAGA MD; NALINI PANDA MD;*End*
[2016-10-08 05:40] LABS: ADD SCAN DIFF NO
[2016-10-08 05:50] LABS: BASOPHILS % 0.3 % (0.0-2.0); EOSINOPHILS # 0.2 10^3/ul (0.0-0.5); EOSINOPHILS % 3.3 % (0.0-7.0); HEMATOCRIT 31.2 % (42.0-52.0); HEMOGLOBIN 10.1 g/dl (14.0-18.0); LYMPHOCYTES % 16.1 % (15.0-51.0); MEAN CORPUSCULAR HEMOGLOBIN 29.5 pg (29.0-33.0); MEAN CORPUSCULAR HGB CONC 32.4 g/dl (32.0-37.0); MEAN CORPUSCULAR VOLUME 91.2 fl (82.0-101.0); MEAN PLATELET VOLUME 9.7 fl (7.4-10.4); MONOCYTE # 0.6 10^3/ul (0.3-0.9); MONOCYTES % 9.1 % (0.0-11.0); NEUTROPHIL # 4.3 10^3/ul (1.6-7.5); NEUTROPHILS % 70.4 % (39.0-77.0); PLATELET COUNT 254 10^3/UL (140-415); RED BLOOD COUNT 3.42 10^6/ul (4.70-6.10); RED CELL DISTRIBUTION WIDTH 16.3 % (11.5-14.5); WHITE BLOOD COUNT 6.2 10^3/ul (4.8-10.8)
[2016-10-08 05:57] LABS: CALCIUM 10.3 mg/dl (8.4-10.2); CREATININE 3.62 mg/dl (0.61-1.24); POTASSIUM 3.7 mmol/L (3.5-5.1)
[2016-10-08] MEDS: LANSOPRAZOLE 30 MG CAP GTB SCH (06:02)
[2016-10-08 08:06] VITALS: BP 144/63; RESP 19
[2016-10-08] MEDS: LEVALBUTEROL (NEB) 0.63 MG/3 ML AMP NEB SCH ×4 (08:21→19:45)
--- NOTE | 2016-10-08 09:18 | PN ---
DATE: 10/05/2016 SUBJECTIVE: The patient is stable. No events overnight. No fevers, chills, nausea or vomiting. OBJECTIVE: VITAL SIGNS: Blood pressure 127/57, respirations 18, pulse 85, temperature 98.5. HEENT: Head is normocephalic. NECK: Supple. HEART: Regular rate. LUNGS: Showed diminished breath sounds at the base. ABDOMEN: Soft, nontender to palpation. No rebound or guarding. EXTREMITIES: Negative for clubbing or cyanosis. No edema. DERMATOLOGIC: No rashes. MUSCULOSKELETAL: Have no joint effusion. NEUROLOGIC: No change in exam. MEDICATIONS: The patient's medications have been reviewed. LABORATORY DATA: Shows sodium 146, potassium 3.9, BUN 64, creatinine 4.11. White count 6.3, hemogl obin 10.3, hematocrit 33.0, platelet count is 225. ASSESSMENT AND PLAN: 1. End-stage renal disease. The patient is scheduled for dialysis today for 3 hours, 3K bath, calc ium 2.5. 2. Anemia. Continue to monitor hemoglobin and hematocrit levels. Continue Epogen with dialysis. 3. Mineral bone disorder. Continue to monitor calcium and phos levels. 4. Hypertension. Continue the current blood pressure regimen. 5. Chronic respiratory failure, status post trach. Continue the current treatment plan. 6. Diabetes. Continue Accu-Cheks and insulin sliding scale. 7. Chronic encephalopathy. No change. 8. Seizure disorder. Continue medical management. 9. Status post sepsis. 10. History of intracranial bleed. Dictated By: MARYURI WALLER/FRANCES Conf#: [id number] DID#: [id number]
[2016-10-08] MEDS: SENNA TAB GTB SCH (10:04)
[2016-10-08] MEDS: TOBRAMYCIN/DEXAMETH 2.5 ML OPH BOTH EYES SCH ×3 (10:04→22:06)
[2016-10-08] MEDS: FOLIC ACID 1 MG TAB GTB SCH (10:04)
[2016-10-08] MEDS: LEVETIRACETAM (100 MG/ML) 5ML CUP GTB SCH ×2 (10:04→22:06)
[2016-10-08] MEDS: MULTIVIT/CA CARB/B CMPLX/FA TAB GTB SCH (10:04)
[2016-10-08] MEDS: SEVELAMER CARBONATE 0.8 GM PKT GTB SCH ×3 (10:04→18:57)
[2016-10-08] MEDS: AMLODIPINE 5 MG TAB GTB SCH (10:05)
[2016-10-08] MEDS: METOPROLOL 25 MG TAB GTB SCH ×2 (10:05→22:07)
--- NOTE | 2016-10-08 12:39 | PN ---
DATE: 10/08/2016 SUBJECTIVE: The patient is stable, no acute events overnight. No fevers, chills, nausea, vomiting, no shortness of breath. OBJECTIVE: VITAL SIGNS: Blood pressure is 144/63, respiration 19, pulse 102, temperature 98.8. HEENT: Head is normocephalic. NECK: Supple. HEART: Regular rate. LUNGS: Show diminished breath sounds at the base. ABDOMEN: Soft, nontender to palpation, no rebound or guarding. EXTREMITIES: Negative for clubbing, cyanosis, no edema. DERMATOLOGIC: No rashes. MUSCULOSKELETAL: No joint effusions. NEUROLOGIC: No change in exam. MEDICATIONS: The patient's medications have been reviewed. LABORATORY DATA: Shows sodium 135, potassium 3.7, BUN 59, creatinine 3.62. White count 6.2, hemogl obin 10.4, creatinine 31.2, platelet count is 254. ASSESSMENT AND PLAN: 1. End-stage renal disease. The patient had hemodialysis yesterday, tolerated it well. Plan for d ialysis tomorrow for 3 hours, 3 K bath, calcium 2.5. 2. Anemia. Continue to monitor H and H levels. Continue Epogen. 3. Mineral bone disorder. Continue to monitor calcium and phosphorus levels. 4. Hypertension. Continue current blood pressure regimen. 5. Current respiratory failure, status post trach. Continue current treatment plan. 6. Diabetes, continue Accu-Cheks, insulin sliding scale. 7. Chronic encephalopathy. No change. 8. Seizure disorder. Continue medical management. 9. Status post sepsis. 10. History of intracranial bleed. 11. Hypercalcemia. Continue dialysis on a low calcium bath. Dictated By: MARYURI WALLER/FRANCES Conf#: [id number] DID#: [id number]
--- NOTE | 2016-10-08 19:17 | PN ---
Date/Time of Note Date/Time of Note DATE: 10/08/16 TIME: 19:16 Assessment/Plan VTE Prophylaxis VTE Prophylaxis Intervention: SCD's Lines/Catheters IV [facility] Type (from [facility] Permacath Urinary Cath still in place: No Assessment/Plan Chief Complaint/Hosp Course Patient remains hemodynamically stable, no seizure activity per nursing staff, this post hemodialysis yesterday. Assessment/Plan - End-stage renal disease on hemodialysis. Continue hemodialysis per nephrology. Dr. Sales is following in nephrology consultation. - Hypertension. Continue metoprolol and hydralazine. - Anemia of chronic disease, transfuse as needed, continue Epogen. - Acute on chronic encephalopathy, resolved. MRI of the brain is negative for any acute stroke. - History of nontraumatic intracranial bleed, status post craniotomy. - Chronic respiratory failure with tracheostomy, currently on T-piece. - Possible seizure disorder. Continue Keppra. - Diabetes mellitus. Continue Levemir and NovoLog per mild algorithm sliding scale. - S/p sepsis - Status post HCAP. Status post treatment Awaits detention facility placement, discussed with case management no bed is available today. Further recommendations based on clinical course. Plan of care discussed with Dr. Godinez. Problems: Exam/Review of Systems Vital Signs Vitals Vital Signs Date Time Temp Pulse Resp B/P Pulse Ox O2 Delivery O2 Flow Rate FiO2 10/08/16 16:44 5.0 28 10/08/16 16:44 109 20 98 Aerosol 10/08/16 08:06 98.8 144/63 Intake and Output 10/07/16 10/07/16 10/08/16 15:00 23:00 07:00 Intake Total 300 ml 680 ml Output Total 2300 ml Balance -2000 ml 680 ml Exam Constitutional: Awake ENMT: nl external ears & nose Neck: other (Tracheostomy), supple Respiratory: slightly diminished breath sounds, Cardiovascular: regular rate and rhythm Gastrointestinal: non-tender, other (G-tube), soft Extremities: normal pulses Neurological: confused Additional Comments Right chest permacath Results Result Diagram: 10/08/16 0506 10/08/16 0506 Results 24 hrs Laboratory Tests Test 10/08/16 05:06 White Blood Count 6.2 Red Blood Count 3.42 L Hemoglobin 10.1 L Hematocrit 31.2 L Mean Corpuscular Volume 91.2 Mean Corpuscular Hemoglobin 29.5 Mean Corpuscular Hemoglobin Concent 32.4 Red Cell Distribution Width 16.3 H Platelet Count 254 Mean Platelet Volume 9.7 Neutrophils % 70.4 Lymphocytes % 16.1 Monocytes % 9.1 Eosinophils % 3.3 Basophils % 0.3 Nucleated Red Blood Cells % 0.0 Neutrophils # 4.3 Lymphocytes # 1.0 Monocytes # 0.6 Eosinophils # 0.2 Basophils # 0.0 Nucleated Red Blood Cells # 0.0 Sodium Level 135 Potassium Level 3.7 Chloride Level 96 L Carbon Dioxide Level 29 Anion Gap 14 Blood Urea Nitrogen 59 H Creatinine 3.62 H Glucose Level 103 Calcium Level 10.3 H Medications Medications Current Medications Amlodipine Besylate (Norvasc) 5 mg DAILY GTB Last administered on 10/08/16 10: 05; Admin Dose 5 MG; Start 08/30/16 at 09:00 Clonidine (Catapres) 0.1 mg DAILY PRN GTB ELEVATED SYSTOLIC BP; Start 08/29/16 at 23:00 Doxazosin Mesylate (Cardura) 2 mg QHS GTB Last administered on 10/07/16 20:21; Admin Dose 2 MG; Start 08/30/16 at 21:00 Folic Acid (Folic Acid) 1 mg DAILY GTB Last administered on 10/08/16 10:04; Admin Dose 1 MG; Start 08/30/16 at 09:00 Hydralazine HCl (Apresoline) 50 mg Q8 GTB Last administered on 10/08/16 15:09; Admin Dose 50 MG; Start 08/30/16 at 06:00 Levetiracetam (Keppra Liquid) 500 mg BID GTB Last administered on 10/08/16 10: 04; Admin Dose 500 MG; Start 08/30/16 at 09:00 Metoprolol Tartrate (Lopressor) 25 mg BID GTB Last administered on 10/08/16 10: 05; Admin Dose 25 MG; Start 08/30/16 at 09:00 Multivit/Ca Carb/ B Cmplx/FA/Prenat (Leah-Juan Jose) 1 tab DAILY GTB Last administered on 10/08/16 10:04; Admin Dose 1 TAB; Start 08/30/16 at 09:00 Ondansetron HCl (Zofran Tab) 4 mg Q6H PRN GTB NAUSEA AND/OR VOMITING; Start at 23:00 Senna (Senokot) 1 tab DAILY GTB Last administered on 10/08/16 10:04; Admin Dose 1 TAB; Start 08/30/16 at 09:00 Zolpidem Tartrate (Ambien) 5 mg QHS PRN GTB INSOMNIA; Start 08/29/16 at 23:00 Lansoprazole (Prevacid) 30 mg DAILY@06 GTB Last administered on 10/08/16 06:02 ; Admin Dose 30 MG; Start 08/30/16 at 06:00 Acetaminophen (Tylenol Liquid) 650 mg Q4H PRN GTB PAIN AND OR ELEVATED TEMP Last administered on 10/02/16 05:42; Admin Dose 650 MG; Start 08/29/16 at 23:00 Miscellaneous Information 1 ea NOTE XX ; Start 08/31/16 at 07:00 Glucose (Glutose) 15 gm Q15M PRN PO DECREASED GLUCOSE; Start 08/31/16 at 07:00 Glucose (Glutose) 22.5 gm Q15M PRN PO DECREASED GLUCOSE; Start 08/31/16 at 07: 00 Dextrose (D50w Syringe) 25 ml Q15M PRN IV DECREASED GLUCOSE Last administered on 10/01/16 06:28; Admin Dose 25 ML; Start 08/31/16 at 07:00 Dextrose (D50w Syringe) 50 ml Q15M PRN IV DECREASED GLUCOSE; Start 08/31/16 at 07:00 Glucagon (Glucagen) 1 mg Q15M PRN IM DECREASED GLUCOSE; Start 08/31/16 at 07:00 Glucose (Glutose) 15 gm Q15M PRN BUCCAL DECREASED GLUCOSE; Start 08/31/16 at 07 :00 Tobramycin/ Dexamethasone (Tobradex Oph Drop) 2 drop TID BOTH EYES Last administered on 10/08/16 12:47; Admin Dose 2 DROP; Start 10/07/16 at 13:00; Stop 10/13/16 at 12:59 NOLELE JIMENEZ Oct 08, 2016 19:17
[2016-10-08 20:52] VITALS: BP 130/59; RESP 20
[2016-10-08] MEDS: DOXAZOSIN 2 MG TAB GTB SCH (22:06)
[2016-10-09] VITALS (9 sets, daily range): BP systolic 91–137; BP diastolic 44–62; PULSE 80–85; RESP 18–20
[2016-10-09] MEDS: LANSOPRAZOLE 30 MG CAP GTB SCH (06:23)
[2016-10-09 06:28] LABS: ADD SCAN DIFF NO
[2016-10-09 06:30] LABS: BASOPHILS % 0.1 % (0.0-2.0); EOSINOPHILS # 0.2 10^3/ul (0.0-0.5); HEMATOCRIT 29.6 % (42.0-52.0); HEMOGLOBIN 9.5 g/dl (14.0-18.0); MEAN CORPUSCULAR HEMOGLOBIN 29.5 pg (29.0-33.0); MEAN CORPUSCULAR HGB CONC 32.1 g/dl (32.0-37.0); MEAN CORPUSCULAR VOLUME 91.9 fl (82.0-101.0); MEAN PLATELET VOLUME 9.9 fl (7.4-10.4); MONOCYTE # 0.8 10^3/ul (0.3-0.9); MONOCYTES % 9.5 % (0.0-11.0); NEUTROPHIL # 5.9 10^3/ul (1.6-7.5); NEUTROPHILS % 74.6 % (39.0-77.0); PLATELET COUNT 263 10^3/UL (140-415); RED BLOOD COUNT 3.22 10^6/ul (4.70-6.10); RED CELL DISTRIBUTION WIDTH 16.3 % (11.5-14.5); WHITE BLOOD COUNT 7.9 10^3/ul (4.8-10.8)
[2016-10-09 07:10] LABS: CALCIUM 10.5 mg/dl (8.4-10.2); CREATININE 5.18 mg/dl (0.61-1.24); POTASSIUM 3.9 mmol/L (3.5-5.1)
[2016-10-09] MEDS: LEVALBUTEROL (NEB) 0.63 MG/3 ML AMP NEB SCH ×4 (08:13→19:34)
[2016-10-09] MEDS: SEVELAMER CARBONATE 0.8 GM PKT GTB SCH ×3 (08:15→18:14)
[2016-10-09] MEDS: LEVETIRACETAM (100 MG/ML) 5ML CUP GTB SCH ×2 (09:59→21:16)
[2016-10-09] MEDS: AMLODIPINE 5 MG TAB GTB SCH (09:59)
[2016-10-09] MEDS: TOBRAMYCIN/DEXAMETH 2.5 ML OPH BOTH EYES SCH ×3 (09:59→21:17)
[2016-10-09] MEDS: METOPROLOL 25 MG TAB GTB SCH ×2 (09:59→21:17)
[2016-10-09] MEDS: MULTIVIT/CA CARB/B CMPLX/FA TAB GTB SCH (09:59)
[2016-10-09] MEDS: SENNA TAB GTB SCH (09:59)
[2016-10-09] MEDS: FOLIC ACID 1 MG TAB GTB SCH (09:59)
--- NOTE | 2016-10-09 10:04 | PN ---
DATE: 10/09/2016 SUBJECTIVE: The patient is stable, no acute events overnight. No fevers, chills, nausea, vomiting. No shortness breath. OBJECTIVE: VITAL SIGNS: Blood pressure 116/56, respirations 20, pulse 81, temperature 98.6. HEENT: Head is normocephalic. NECK: Supple. HEART: Regular rate. LUNGS: Show diminished breath sounds at the base. ABDOMEN: Soft, nontender to palpation. No rebound or guarding. EXTREMITIES: Negative for clubbing, cyanosis. No edema. DERMATOLOGIC: No rashes. MUSCULOSKELETAL: No joint effusions. NEUROLOGIC: No change in exam. MEDICATIONS: Reviewed. LABORATORY DATA: Shows sodium 132, potassium 2.9, chloride 93, BUN 89, creatinine 5.18. White coun t 7.9, hemoglobin 9.5, hematocrit 29.6, platelet count 263. ASSESSMENT AND PLAN: 1. End-stage renal disease. Plan for dialysis today for 3 hours, 3 K bath, calcium 2.5. 2. Anemia. Continue to monitor hemoglobin and hematocrit levels. Continue Epogen. 3. Mineral bone disorder. Continue to monitor calcium and phosphorus levels. 4. Hypertension. Continue current blood pressure regimen. 5. Hypernatremia. The patient will be dialyzed on 140 sodium bath. 6. Chronic respiratory failure, status post tracheostomy, continue current treatment plan. 7. Diabetes. Continue Accu-Cheks and insulin sliding scale. 8. Chronic encephalopathy. No change. 9. Seizure disorder. Continue current medical management. 10. Status post sepsis. 11. History of intracranial bleed. Dictated By: MARYURI WALLER/FRANCES Conf#: [id number] DID#: [id number]
--- NOTE | 2016-10-09 18:29 | PN ---
Date/Time of Note Date/Time of Note DATE: 10/09/16 TIME: 18:27 Assessment/Plan VTE Prophylaxis VTE Prophylaxis Intervention: SCD's Lines/Catheters IV C[facility]ter Type (from [facility] Permacath Urinary Cath still in place: No Assessment/Plan Chief Complaint/Hosp Course Patient status post hemodialysis was removal of 2 L of fluids, remains hemodynamically stable. Assessment/Plan - End-stage renal disease on hemodialysis. Continue hemodialysis per nephrology. Dr. Sales is following in nephrology consultation. - Hypertension. Continue metoprolol and hydralazine. - Anemia of chronic disease, transfuse as needed, continue Epogen. - S/p acute on chronic encephalopathy. - History of nontraumatic intracranial bleed, status post craniotomy. - Chronic respiratory failure with tracheostomy, currently on T-piece. - Possible seizure disorder. Continue Keppra. - Diabetes mellitus. Continue Levemir and NovoLog per mild algorithm sliding scale. - S/p sepsis - Status post HCAP. Status post treatment Further recommendations based on clinical course. Plan of care discussed with Dr. Godinez. Problems: Exam/Review of Systems Vital Signs Vitals Vital Signs Date Time Temp Pulse Resp B/P Pulse Ox O2 Delivery O2 Flow Rate FiO2 10/09/16 16:56 110 20 10 Aerosol 5.0 28 10/09/16 07:32 97.9 116/56 Intake and Output 10/08/16 10/08/16 10/09/16 15:00 23:00 07:00 Intake Total 700 ml Balance 700 ml Exam Constitutional: Awake ENMT: nl external ears & nose Neck: other (Tracheostomy), supple Respiratory: slightly diminished breath sounds, Cardiovascular: regular rate and rhythm Gastrointestinal: non-tender, other (G-tube), soft Extremities: normal pulses Neurological: confused Additional Comments Right chest permacath Results Result Diagram: 10/09/16 0540 10/09/16 0540 Results 24 hrs Laboratory Tests Test 10/09/16 05:40 White Blood Count 7.9 # Red Blood Count 3.22 L Hemoglobin 9.5 L Hematocrit 29.6 L Mean Corpuscular Volume 91.9 Mean Corpuscular Hemoglobin 29.5 Mean Corpuscular Hemoglobin Concent 32.1 Red Cell Distribution Width 16.3 H Platelet Count 263 Mean Platelet Volume 9.9 Neutrophils % 74.6 Lymphocytes % 12.0 L Monocytes % 9.5 Eosinophils % 3.0 Basophils % 0.1 Nucleated Red Blood Cells % 0.0 Neutrophils # 5.9 Lymphocytes # 1.0 Monocytes # 0.8 Eosinophils # 0.2 Basophils # 0.0 Nucleated Red Blood Cells # 0.0 Sodium Level 132 L Potassium Level 3.9 Chloride Level 93 L Carbon Dioxide Level 29 Anion Gap 14 Blood Urea Nitrogen 89 #H Creatinine 5.18 H Glucose Level 110 Calcium Level 10.5 H Medications Medications Current Medications Amlodipine Besylate (Norvasc) 5 mg DAILY GTB Last administered on 10/08/16 10: 05; Admin Dose 5 MG; Start 08/30/16 at 09:00 Clonidine (Catapres) 0.1 mg DAILY PRN GTB ELEVATED SYSTOLIC BP; Start 08/29/16 at 23:00 Doxazosin Mesylate (Cardura) 2 mg QHS GTB Last administered on 10/08/16 22:06; Admin Dose 2 MG; Start 08/30/16 at 21:00 Folic Acid (Folic Acid) 1 mg DAILY GTB Last administered on 10/08/16 10:04; Admin Dose 1 MG; Start 08/30/16 at 09:00 Hydralazine HCl (Apresoline) 50 mg Q8 GTB Last administered on 10/09/16 14:57; Admin Dose 50 MG; Start 08/30/16 at 06:00 Levetiracetam (Keppra Liquid) 500 mg BID GTB Last administered on 10/08/16 22: 06; Admin Dose 500 MG; Start 08/30/16 at 09:00 Metoprolol Tartrate (Lopressor) 25 mg BID GTB Last administered on 10/08/16 22: 07; Admin Dose 25 MG; Start 08/30/16 at 09:00 Multivit/Ca Carb/ B Cmplx/FA/Prenat (Leah-Juan Jose) 1 tab DAILY GTB Last administered on 10/08/16 10:04; Admin Dose 1 TAB; Start 08/30/16 at 09:00 Ondansetron HCl (Zofran Tab) 4 mg Q6H PRN GTB NAUSEA AND/OR VOMITING; Start at 23:00 Senna (Senokot) 1 tab DAILY GTB Last administered on 10/08/16 10:04; Admin Dose 1 TAB; Start 08/30/16 at 09:00 Zolpidem Tartrate (Ambien) 5 mg QHS PRN GTB INSOMNIA; Start 08/29/16 at 23:00 Lansoprazole (Prevacid) 30 mg DAILY@06 GTB Last administered on 10/09/16 06:23 ; Admin Dose 30 MG; Start 08/30/16 at 06:00 Acetaminophen (Tylenol Liquid) 650 mg Q4H PRN GTB PAIN AND OR ELEVATED TEMP Last administered on 10/02/16 05:42; Admin Dose 650 MG; Start 08/29/16 at 23:00 Miscellaneous Information 1 ea NOTE XX ; Start 08/31/16 at 07:00 Glucose (Glutose) 15 gm Q15M PRN PO DECREASED GLUCOSE; Start 08/31/16 at 07:00 Glucose (Glutose) 22.5 gm Q15M PRN PO DECREASED GLUCOSE; Start 08/31/16 at 07: 00 Dextrose (D50w Syringe) 25 ml Q15M PRN IV DECREASED GLUCOSE Last administered on 10/01/16 06:28; Admin Dose 25 ML; Start 08/31/16 at 07:00 Dextrose (D50w Syringe) 50 ml Q15M PRN IV DECREASED GLUCOSE; Start 08/31/16 at 07:00 Glucagon (Glucagen) 1 mg Q15M PRN IM DECREASED GLUCOSE; Start 08/31/16 at 07:00 Glucose (Glutose) 15 gm Q15M PRN BUCCAL DECREASED GLUCOSE; Start 08/31/16 at 07 :00 Tobramycin/ Dexamethasone (Tobradex Oph Drop) 2 drop TID BOTH EYES Last administered on 10/09/16 14:57; Admin Dose 2 DROP; Start 10/07/16 at 13:00; Stop 10/13/16 at 12:59 NOELLE JIMENEZ Oct 09, 2016 18:29
[2016-10-09] MEDS: DOXAZOSIN 2 MG TAB GTB SCH (21:16)
--- NOTE | 2016-10-09 22:18 | CONS ---
Date/Time of Note Date/Time of Note DATE: 10/09/16 TIME: 22:11 Assessment/Plan Assessment/Plan Additional Assessment/Plan = IMPRESSION: 1. Ventilator dependent respiratory failure. 2. Pneumonia. 3. Dysphagia status post percutaneous endoscopic gastrostomy. 4. End-stage renal disease on dialysis. 5. Positive stool guaiac. 6. Anemia. PLAN: At this point, is to continue PPI. Will monitor H and H. If the hematocrit drops significantly, then will definitely proceed with EGD and colonoscopy. Dictated By: NALINI PANDA MD PJ/NTS Conf#: [id number] DID#: [id number] CC: PHILL ARRIAGA MD; NALINI PANDA MD;*EndCC* Consultation Date/Type/Reason Admit Date/Time Aug 29, 2016 at 16:21 Initial Consult Date 08/31/16 Type of Consultation: neph Referring Provider: CANDY JUAREZ 24 HR Interval Summary Constitutional: no complaints Exam/Review of Systems Vital Signs Vitals Vital Signs Date Time Temp Pulse Resp B/P Pulse Ox O2 Delivery O2 Flow Rate FiO2 10/09/16 20:00 97.6 94 18 137/62 99 10/09/16 19:35 5.0 28 10/09/16 19:35 Aerosol Intake and Output 10/08/16 10/08/16 10/09/16 15:00 23:00 07:00 Intake Total 700 ml Balance 700 ml Exam Constitutional: alert, oriented, well developed Psych: nl mood/affect, no complaints Head: atraumatic, normocephalic Eyes: EOMI, PERRL, nl conjunctiva, nl lids, nl sclera ENMT: nl external ears & nose, nl lips & teeth, nl nasal mucosa & septum Neck: non-tender, supple Respiratory: clear to auscultation, normal air movement Cardiovascular: nl pulses, regular rate and rhythm Gastrointestinal: nl liver, spleen, non-tender, soft Musculoskeletal: nl extremities to inspection, nl gait and stance Extremities: normal pulses 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, nl mental status, nl speech, nl strength Skin: nl turgor, No rash or lesions Lymph: nl lymph nodes Results Result Diagram: 10/09/1640 10/09/16 0540 Results 24 hrs Laboratory Tests Test 10/09/16 05:40 White Blood Count 7.9 # Red Blood Count 3.22 L Hemoglobin 9.5 L Hematocrit 29.6 L Mean Corpuscular Volume 91.9 Mean Corpuscular Hemoglobin 29.5 Mean Corpuscular Hemoglobin Concent 32.1 Red Cell Distribution Width 16.3 H Platelet Count 263 Mean Platelet Volume 9.9 Neutrophils % 74.6 Lymphocytes % 12.0 L Monocytes % 9.5 Eosinophils % 3.0 Basophils % 0.1 Nucleated Red Blood Cells % 0.0 Neutrophils # 5.9 Lymphocytes # 1.0 Monocytes # 0.8 Eosinophils # 0.2 Basophils # 0.0 Nucleated Red Blood Cells # 0.0 Sodium Level 132 L Potassium Level 3.9 Chloride Level 93 L Carbon Dioxide Level 29 Anion Gap 14 Blood Urea Nitrogen 89 #H Creatinine 5.18 H Glucose Level 110 Calcium Level 10.5 H Medications Medications Current Medications Amlodipine Besylate (Norvasc) 5 mg DAILY GTB Last administered on 10/08/16 10: 05; Admin Dose 5 MG; Start 08/30/16 at 09:00 Clonidine (Catapres) 0.1 mg DAILY PRN GTB ELEVATED SYSTOLIC BP; Start 08/29/16 at 23:00 Doxazosin Mesylate (Cardura) 2 mg QHS GTB Last administered on 10/09/16 21:16; Admin Dose 2 MG; Start 08/30/16 at 21:00 Folic Acid (Folic Acid) 1 mg DAILY GTB Last administered on 10/08/16 10:04; Admin Dose 1 MG; Start 08/30/16 at 09:00 Hydralazine HCl (Apresoline) 50 mg Q8 GTB Last administered on 10/09/16 21:17; Admin Dose 50 MG; Start 08/30/16 at 06:00 Levetiracetam (Keppra Liquid) 500 mg BID GTB Last administered on 10/09/16 21: 16; Admin Dose 500 MG; Start 08/30/16 at 09:00 Metoprolol Tartrate (Lopressor) 25 mg BID GTB Last administered on 10/09/16 21: 17; Admin Dose 25 MG; Start 08/30/16 at 09:00 Multivit/Ca Carb/ B Cmplx/FA/Prenat (Leah-Juan Jose) 1 tab DAILY GTB Last administered on 10/08/16 10:04; Admin Dose 1 TAB; Start 08/30/16 at 09:00 Ondansetron HCl (Zofran Tab) 4 mg Q6H PRN GTB NAUSEA AND/OR VOMITING; Start at 23:00 Senna (Senokot) 1 tab DAILY GTB Last administered on 10/08/16 10:04; Admin Dose 1 TAB; Start 08/30/16 at 09:00 Zolpidem Tartrate (Ambien) 5 mg QHS PRN GTB INSOMNIA; Start 08/29/16 at 23:00 Lansoprazole (Prevacid) 30 mg DAILY@06 GTB Last administered on 10/09/16 06:23 ; Admin Dose 30 MG; Start 08/30/16 at 06:00 Acetaminophen (Tylenol Liquid) 650 mg Q4H PRN GTB PAIN AND OR ELEVATED TEMP Last administered on 10/02/16 05:42; Admin Dose 650 MG; Start 08/29/16 at 23:00 Miscellaneous Information 1 ea NOTE XX ; Start 08/31/16 at 07:00 Glucose (Glutose) 15 gm Q15M PRN PO DECREASED GLUCOSE; Start 08/31/16 at 07:00 Glucose (Glutose) 22.5 gm Q15M PRN PO DECREASED GLUCOSE; Start 08/31/16 at 07: 00 Dextrose (D50w Syringe) 25 ml Q15M PRN IV DECREASED GLUCOSE Last administered on 10/01/16 06:28; Admin Dose 25 ML; Start 08/31/16 at 07:00 Dextrose (D50w Syringe) 50 ml Q15M PRN IV DECREASED GLUCOSE; Start 08/31/16 at 07:00 Glucagon (Glucagen) 1 mg Q15M PRN IM DECREASED GLUCOSE; Start 08/31/16 at 07:00 Glucose (Glutose) 15 gm Q15M PRN BUCCAL DECREASED GLUCOSE; Start 08/31/16 at 07 :00 Tobramycin/ Dexamethasone (Tobradex Oph Drop) 2 drop TID BOTH EYES Last administered on 10/09/16 21:17; Admin Dose 2 DROP; Start 10/07/16 at 13:00; Stop 10/13/16 at 12:59 NALINI PANDA MD Oct 09, 2016 22:18
[2016-10-10] MEDS: LANSOPRAZOLE 30 MG CAP GTB SCH (06:02)
[2016-10-10 07:53] VITALS: BP 136/65; RESP 17
[2016-10-10] MEDS: LEVALBUTEROL (NEB) 0.63 MG/3 ML AMP NEB SCH ×4 (08:00→20:31)
--- NOTE | 2016-10-10 09:50 | PN ---
DATE: 10/10/2016 SUBJECTIVE: The patient is stable, no acute events overnight. The patient had hemodialysis yesterd ay, tolerated it well. OBJECTIVE: VITAL SIGNS: Blood pressure 136/65, respirations 17, pulse 80, temperature 97.6. HEENT: Head is normocephalic. NECK: Supple. Positive trach. HEART: Regular rate. LUNGS: Show diminished breath sounds at the bases. ABDOMEN: Soft, nontender to palpation. No rebound or guarding. EXTREMITIES: Negative for clubbing, cyanosis. No edema. DERMATOLOGIC: No rashes. MUSCULOSKELETAL: No joint effusions. NEUROLOGIC: No change in exam. MEDICATIONS: The patient's medications have been reviewed. LABORATORY DATA: Has been reviewed. No new labs. ASSESSMENT AND PLAN: 1. End-stage renal disease. The patient will be scheduled for dialysis tomorrow for 3 hours, 3K ba th, calcium 2.5. 2. Anemia. Continue to monitor hemoglobin and hematocrit levels. Continue Epogen. 3. Mineral bone disorder. Continue to monitor calcium and phosphorus levels. 4. Hypertension. Continue current blood pressure regimen. 5. Hyponatremia. Continue dialysis on a 140 sodium bath. 6. Chronic respiratory failure, status post trach. Continue current treatment plan. 7. Diabetes. Continue Accu-Cheks and insulin sliding scale. 8. Chronic encephalopathy. No change. 9. Seizure disorder. Continue current medical management. 10. Status post sepsis. 11. History of intracranial bleed. Dictated By: MARYURI WALLER/FRANCES Conf#: [id number] DID#: [id number]
[2016-10-10] MEDS: MULTIVIT/CA CARB/B CMPLX/FA TAB GTB SCH (09:53)
[2016-10-10] MEDS: SEVELAMER CARBONATE 0.8 GM PKT GTB SCH ×3 (09:53→18:40)
[2016-10-10] MEDS: SENNA TAB GTB SCH (09:53)
[2016-10-10] MEDS: TOBRAMYCIN/DEXAMETH 2.5 ML OPH BOTH EYES SCH ×3 (09:53→20:29)
[2016-10-10] MEDS: LEVETIRACETAM (100 MG/ML) 5ML CUP GTB SCH ×2 (09:53→20:27)
[2016-10-10] MEDS: FOLIC ACID 1 MG TAB GTB SCH (09:54)
[2016-10-10] MEDS: METOPROLOL 25 MG TAB GTB SCH ×2 (09:56→20:28)
[2016-10-10] MEDS: AMLODIPINE 5 MG TAB GTB SCH (09:56)
--- NOTE | 2016-10-10 16:34 | PN ---
Date/Time of Note Date/Time of Note DATE: 10/10/16 TIME: 16:31 Assessment/Plan VTE Prophylaxis VTE Prophylaxis Intervention: SCD's Lines/Catheters IV [facility] Type (from [facility] PERMCATH Urinary Cath still in place: No Assessment/Plan Chief Complaint/Hosp Course Patient remained stable, afebrile, small to moderate amount of secretions from trach. Discussed with case management no [facility] facility bed is available today. Assessment/Plan - End-stage renal disease on hemodialysis. Continue hemodialysis per nephrology. Dr. Sales is following in nephrology consultation. - Hypertension. Continue metoprolol and hydralazine. - Anemia of chronic disease, transfuse as needed, continue Epogen. - S/p acute on chronic encephalopathy. - History of nontraumatic intracranial bleed, status post craniotomy. - Chronic respiratory failure with tracheostomy, currently on T-piece. - Possible seizure disorder. Continue Keppra. - Diabetes mellitus. Continue Levemir and NovoLog per mild algorithm sliding scale. - S/p sepsis - Status post HCAP. Status post treatment Further recommendations based on clinical course. Plan of care discussed with Dr. Godinez. Problems: Exam/Review of Systems Vital Signs Vitals Vital Signs Date Time Temp Pulse Resp B/P Pulse Ox O2 Delivery O2 Flow Rate FiO2 10/10/16 15:26 77 24 98 Aerosol 5.0 28 10/10/16 07:53 97.6 136/65 Intake and Output 10/09/16 10/09/16 10/10/16 15:00 23:00 07:00 Intake Total 300 ml 0 ml 730 ml Output Total 2300 ml 0 ml Balance -2000 ml 0 ml 730 ml Exam Constitutional: Awake Neck: other (Tracheostomy), supple Respiratory: slightly diminished at the bases breath sounds, Cardiovascular: S1S2 Gastrointestinal: non-tender, other (G-tube), soft Extremities: normal pulses Neurological: confused Additional Comments Right chest permacath Results Result Diagram: 10/09/16 0540 10/09/16 0540 Medications Medications Current Medications Amlodipine Besylate (Norvasc) 5 mg DAILY GTB Last administered on 10/10/16t 09: 56; Admin Dose 5 MG; Start 08/30/16 at 09:00 Clonidine (Catapres) 0.1 mg DAILY PRN GTB ELEVATED SYSTOLIC BP; Start 08/29/16 at 23:00 Doxazosin Mesylate (Cardura) 2 mg QHS GTB Last administered on 10/09/16 21:16; Admin Dose 2 MG; Start 08/30/16 at 21:00 Folic Acid (Folic Acid) 1 mg DAILY GTB Last administered on 10/10/16 09:54; Admin Dose 1 MG; Start 08/30/16 at 09:00 Hydralazine HCl (Apresoline) 50 mg Q8 GTB Last administered on 10/10/16 15:21; Admin Dose 50 MG; Start 08/30/16 at 06:00 Levetiracetam (Keppra Liquid) 500 mg BID GTB Last administered on 10/10/16 09: 53; Admin Dose 500 MG; Start 08/30/16 at 09:00 Metoprolol Tartrate (Lopressor) 25 mg BID GTB Last administered on 10/10/16 09: 56; Admin Dose 25 MG; Start 08/30/16 at 09:00 Multivit/Ca Carb/ B Cmplx/FA/Prenat (Leah-Juan Jose) 1 tab DAILY GTB Last administered on 10/10/16 09:53; Admin Dose 1 TAB; Start 08/30/16 at 09:00 Ondansetron HCl (Zofran Tab) 4 mg Q6H PRN GTB NAUSEA AND/OR VOMITING; Start at 23:00 Senna (Senokot) 1 tab DAILY GTB Last administered on 10/10/16 09:53; Admin Dose 1 TAB; Start 08/30/16 at 09:00 Zolpidem Tartrate (Ambien) 5 mg QHS PRN GTB INSOMNIA; Start 08/29/16 at 23:00 Lansoprazole (Prevacid) 30 mg DAILY@06 GTB Last administered on 10/10/16 06:02 ; Admin Dose 30 MG; Start 08/30/16 at 06:00 Acetaminophen (Tylenol Liquid) 650 mg Q4H PRN GTB PAIN AND OR ELEVATED TEMP Last administered on 10/02/16 05:42; Admin Dose 650 MG; Start 08/29/16 at 23:00 Miscellaneous Information 1 ea NOTE XX ; Start 08/31/16 at 07:00 Glucose (Glutose) 15 gm Q15M PRN PO DECREASED GLUCOSE; Start 08/31/16 at 07:00 Glucose (Glutose) 22.5 gm Q15M PRN PO DECREASED GLUCOSE; Start 08/31/16 at 07: 00 Dextrose (D50w Syringe) 25 ml Q15M PRN IV DECREASED GLUCOSE Last administered on 10/01/16 06:28; Admin Dose 25 ML; Start 08/31/16 at 07:00 Dextrose (D50w Syringe) 50 ml Q15M PRN IV DECREASED GLUCOSE; Start 08/31/16 at 07:00 Glucagon (Glucagen) 1 mg Q15M PRN IM DECREASED GLUCOSE; Start 08/31/16 at 07:00 Glucose (Glutose) 15 gm Q15M PRN BUCCAL DECREASED GLUCOSE; Start 08/31/16 at 07 :00 Tobramycin/ Dexamethasone (Tobradex Oph Drop) 2 drop TID BOTH EYES Last administered on 10/10/16 15:21; Admin Dose 2 DROP; Start 10/07/16 at 13:00; Stop 10/13/16 at 12:59 NOELLE JIMENEZ Oct 10, 2016 16:34
[2016-10-10 19:41] VITALS: BP 152/67; RESP 18
[2016-10-10] MEDS: DOXAZOSIN 2 MG TAB GTB SCH (20:28)
--- NOTE | 2016-10-10 20:56 | CONS ---
Date/Time of Note Date/Time of Note DATE: 10/10/16 TIME: 20:56 Assessment/Plan Assessment/Plan Additional Assessment/Plan IMPRESSION: 1. Ventilator dependent respiratory failure. 2. Pneumonia. 3. Dysphagia status post percutaneous endoscopic gastrostomy. 4. End-stage renal disease on dialysis. 5. Positive stool guaiac. 6. Anemia. PLAN: At this point, is to continue PPI. Will monitor H and H. If the hematocrit drops significantly, then will definitely proceed with EGD and colonoscopy. Consultation Date/Type/Reason Admit Date/Time Aug 29, 2016 at 16:21 Initial Consult Date 08/31/16 Type of Consultation: neph Referring Provider: CANDY JUAREZ 24 HR Interval Summary Constitutional: improved Exam/Review of Systems Vital Signs Vitals Vital Signs Date Time Temp Pulse Resp B/P Pulse Ox O2 Delivery O2 Flow Rate FiO2 10/10/16 20:32 80 20 99 Aerosol 5.0 28 10/10/16 19:41 97.0 152/67 Intake and Output 10/09/16 10/09/16 10/10/16 15:00 23:00 07:00 Intake Total 300 ml 0 ml 730 ml Output Total 2300 ml 0 ml Balance -2000 ml 0 ml 730 ml Exam Constitutional: alert, oriented, well developed Psych: nl mood/affect, no complaints Head: atraumatic, normocephalic Eyes: EOMI, PERRL, nl conjunctiva, nl lids, nl sclera ENMT: nl external ears & nose, nl lips & teeth, nl nasal mucosa & septum Neck: non-tender, supple Respiratory: clear to auscultation, normal air movement Cardiovascular: nl pulses, regular rate and rhythm Gastrointestinal: nl liver, spleen, non-tender, soft Musculoskeletal: nl extremities to inspection, nl gait and stance Extremities: normal pulses 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, nl mental status, nl speech, nl strength Skin: nl turgor, No rash or lesions Lymph: nl lymph nodes Results Result Diagram: 10/09/16 0540 10/09/16 0540 Medications Medications Current Medications Amlodipine Besylate (Norvasc) 5 mg DAILY GTB Last administered on 10/10/16t 09: 56; Admin Dose 5 MG; Start 08/30/16 at 09:00 Clonidine (Catapres) 0.1 mg DAILY PRN GTB ELEVATED SYSTOLIC BP; Start 08/29/16 at 23:00 Doxazosin Mesylate (Cardura) 2 mg QHS GTB Last administered on 10/10/16 20:28; Admin Dose 2 MG; Start 08/30/16 at 21:00 Folic Acid (Folic Acid) 1 mg DAILY GTB Last administered on 10/10/16 09:54; Admin Dose 1 MG; Start 08/30/16 at 09:00 Hydralazine HCl (Apresoline) 50 mg Q8 GTB Last administered on 10/10/16 20:28; Admin Dose 50 MG; Start 08/30/16 at 06:00 Levetiracetam (Keppra Liquid) 500 mg BID GTB Last administered on 10/10/16 20: 27; Admin Dose 500 MG; Start 08/30/16 at 09:00 Metoprolol Tartrate (Lopressor) 25 mg BID GTB Last administered on 10/10/16 20: 28; Admin Dose 25 MG; Start 08/30/16 at 09:00 Multivit/Ca Carb/ B Cmplx/FA/Prenat (Leah-Juan Jose) 1 tab DAILY GTB Last administered on 10/10/16 09:53; Admin Dose 1 TAB; Start 08/30/16 at 09:00 Ondansetron HCl (Zofran Tab) 4 mg Q6H PRN GTB NAUSEA AND/OR VOMITING; Start at 23:00 Senna (Senokot) 1 tab DAILY GTB Last administered on 10/10/16 09:53; Admin Dose 1 TAB; Start 08/30/16 at 09:00 Zolpidem Tartrate (Ambien) 5 mg QHS PRN GTB INSOMNIA; Start 08/29/16 at 23:00 Lansoprazole (Prevacid) 30 mg DAILY@06 GTB Last administered on 10/10/16 06:02 ; Admin Dose 30 MG; Start 08/30/16 at 06:00 Acetaminophen (Tylenol Liquid) 650 mg Q4H PRN GTB PAIN AND OR ELEVATED TEMP Last administered on 10/02/16 05:42; Admin Dose 650 MG; Start 08/29/16 at 23:00 Miscellaneous Information 1 ea NOTE XX ; Start 4/28/17 at 07:00 Glucose (Glutose) 15 gm Q15M PRN PO DECREASED GLUCOSE; Start 08/31/16 at 07:00 Glucose (Glutose) 22.5 gm Q15M PRN PO DECREASED GLUCOSE; Start 08/31/16 at 07: 00 Dextrose (D50w Syringe) 25 ml Q15M PRN IV DECREASED GLUCOSE Last administered on 10/01/16 06:28; Admin Dose 25 ML; Start 08/31/16 at 07:00 Dextrose (D50w Syringe) 50 ml Q15M PRN IV DECREASED GLUCOSE; Start 08/31/16 at 07:00 Glucagon (Glucagen) 1 mg Q15M PRN IM DECREASED GLUCOSE; Start 08/31/16 at 07:00 Glucose (Glutose) 15 gm Q15M PRN BUCCAL DECREASED GLUCOSE; Start 08/31/16 at 07 :00 Tobramycin/ Dexamethasone (Tobradex Oph Drop) 2 drop TID BOTH EYES Last administered on 10/10/16 20:29; Admin Dose 2 DROP; Start 10/07/16 at 13:00; Stop 10/13/16 at 12:59 NALINI PANDA MD Oct 10, 2016 20:56
[2016-10-11] VITALS (10 sets, daily range): BP systolic 108–153; BP diastolic 52–70; PULSE 75–85; RESP 16–18
[2016-10-11] MEDS: LANSOPRAZOLE 30 MG CAP GTB SCH (06:07)
[2016-10-11 06:17] LABS: CALCIUM 10.4 mg/dl (8.4-10.2); CREATININE 4.57 mg/dl (0.61-1.24); POTASSIUM 3.8 mmol/L (3.5-5.1)
[2016-10-11] MEDS: LEVALBUTEROL (NEB) 0.63 MG/3 ML AMP NEB SCH ×4 (07:19→19:48)
[2016-10-11] MEDS: SEVELAMER CARBONATE 0.8 GM PKT GTB SCH ×3 (08:15→18:35)
--- NOTE | 2016-10-11 09:57 | PN ---
DATE: 10/11/2016 SUBJECTIVE: The patient is stable. No acute events overnight. No fevers, chills, nausea or vomiti ng. No shortness of breath. OBJECTIVE: VITAL SIGNS: Blood pressure is 123/58, respirations 16, pulse 86, temperature is 97.3. HEENT: Head is normocephalic. NECK: Supple. HEART: Regular rate. LUNGS: Showed diminished breath sounds at the base. ABDOMEN: Soft, nontender to palpation. No rebound or guarding. EXTREMITIES: Negative for clubbing, cyanosis. No edema. DERMATOLOGIC: No rashes. MUSCULOSKELETAL: Have no joint effusion. NEUROLOGIC: No change in exam. MEDICATIONS: The patient's medications were reviewed. LABORATORY DATA: Shows sodium 133, potassium 3.9, chloride 94, BUN 72, creatinine 4.57. ASSESSMENT AND PLAN: 1. End-stage renal disease. The patient is currently on hemodialysis, with dialysis for 3 hours, 3 K bath, calcium 2.5. 2. Anemia. Continue to monitor hemoglobin and hematocrit levels. Continue Epogen. 3. Mineral bone disorder. Continue to monitor calcium and phosphorus levels. 4. Hypertension. Continue the current blood pressure regimen. 5. Hyponatremia. Continue dialysis with a 140 sodium bath. 6. Chronic respiratory failure. Status post trach. Continue the current treatment plan. 7. Diabetes. Continue Accu-Cheks and insulin sliding scale. 8. Chronic encephalopathy. No change. 9. Seizure disorder. Continue medical management. 10. Status post sepsis. 11. History of intracranial bleed. Dictated By: MARYURI WALLER/FRANCES Conf#: [id number] DID#: [id number]
[2016-10-11] MEDS: AMLODIPINE 5 MG TAB GTB SCH (11:29)
[2016-10-11] MEDS: MULTIVIT/CA CARB/B CMPLX/FA TAB GTB SCH (11:29)
[2016-10-11] MEDS: FOLIC ACID 1 MG TAB GTB SCH (11:29)
[2016-10-11] MEDS: METOPROLOL 25 MG TAB GTB SCH ×2 (11:29→21:35)
[2016-10-11] MEDS: TOBRAMYCIN/DEXAMETH 2.5 ML OPH BOTH EYES SCH ×3 (11:30→21:35)
[2016-10-11] MEDS: SENNA TAB GTB SCH (11:30)
[2016-10-11] MEDS: LEVETIRACETAM (100 MG/ML) 5ML CUP GTB SCH ×2 (11:30→21:33)
--- NOTE | 2016-10-11 16:11 | PN ---
Date/Time of Note Date/Time of Note DATE: 10/11/16 TIME: 16:09 Assessment/Plan Lines/Catheters IV Catheter Type (from [facility]): perma catheter Urinary Cath still in place: No Assessment/Plan Assessment/Plan - End-stage renal disease on hemodialysis. Continue hemodialysis per nephrology. Dr. Sales is following in nephrology consultation. - Hypertension. Continue metoprolol and hydralazine. - Anemia of chronic disease, transfuse as needed, continue Epogen. - S/p acute on chronic encephalopathy. - History of nontraumatic intracranial bleed, status post craniotomy. - Chronic respiratory failure with tracheostomy, currently on T-piece. - Possible seizure disorder. Continue Keppra. - Diabetes mellitus. Continue Levemir and NovoLog per mild algorithm sliding scale. - S/p sepsis - Status post HCAP. Status post treatment Further recommendations based on clinical course. Plan of care discussed with Dr. Godinez. Subjective 24 Hr Interval Summary Free Text/Dictation NAD, stable, afebrile, tolerating GT feedings, pending SNF transfer. Discussed with staff- no new issues reported. Exam/Review of Systems Vital Signs Vitals Vital Signs Date Time Temp Pulse Resp B/P Pulse Ox O2 Delivery O2 Flow Rate FiO2 10/11/16 14:38 77 152/67 10/11/16 11:30 5.0 10/11/16 11:25 18 99 Aerosol Mask 28 T Tube 10/11/16 08:22 97.3 Intake and Output 10/10/16 10/10/16 10/11/16 15:00 23:00 07:00 Intake Total 720 ml 725 ml Balance 720 ml 725 ml Exam Constitutional: alert Respiratory: clear to auscultation, normal air movement Cardiovascular: nl pulses, regular rate and rhythm Gastrointestinal: non-tender, other, soft Musculoskeletal: muscle weakness Extremities: normal pulses Neurological: confused Skin: other Results Result Diagram: 10/09/16 0540 10/11/16 0500 Results 24 hrs Laboratory Tests Test 10/11/16 05:00 Sodium Level 133 L Potassium Level 3.8 Chloride Level 94 L Carbon Dioxide Level 31 Anion Gap 12 Blood Urea Nitrogen 72 H Creatinine 4.57 H Glucose Level 110 Calcium Level 10.4 H Medications Medications Current Medications Amlodipine Besylate (Norvasc) 5 mg DAILY GTB Last administered on 10/11/16 11: 29; Admin Dose 5 MG; Start 08/30/16 at 09:00 Clonidine (Catapres) 0.1 mg DAILY PRN GTB ELEVATED SYSTOLIC BP; Start 08/29/16 at 23:00 Doxazosin Mesylate (Cardura) 2 mg QHS GTB Last administered on 10/10/16 20:28; Admin Dose 2 MG; Start 08/30/16 at 21:00 Folic Acid (Folic Acid) 1 mg DAILY GTB Last administered on 10/11/16 11:29; Admin Dose 1 MG; Start 08/30/16 at 09:00 Hydralazine HCl (Apresoline) 50 mg Q8 GTB Last administered on 10/11/16 14:38; Admin Dose 50 MG; Start 08/30/16 at 06:00 Levetiracetam (Keppra Liquid) 500 mg BID GTB Last administered on 10/11/16 11: 30; Admin Dose 500 MG; Start 08/30/16 at 09:00 Metoprolol Tartrate (Lopressor) 25 mg BID GTB Last administered on 10/11/16 11: 29; Admin Dose 25 MG; Start 08/30/16 at 09:00 Multivit/Ca Carb/ B Cmplx/FA/Prenat (Leah-Juan Jose) 1 tab DAILY GTB Last administered on 10/11/16 11:29; Admin Dose 1 TAB; Start 08/30/16 at 09:00 Ondansetron HCl (Zofran Tab) 4 mg Q6H PRN GTB NAUSEA AND/OR VOMITING; Start at 23:00 Senna (Senokot) 1 tab DAILY GTB Last administered on 10/11/16 11:30; Admin Dose 1 TAB; Start 08/30/16 at 09:00 Zolpidem Tartrate (Ambien) 5 mg QHS PRN GTB INSOMNIA; Start 08/29/16 at 23:00 Lansoprazole (Prevacid) 30 mg DAILY@06 GTB Last administered on 10/11/16 06:07 ; Admin Dose 30 MG; Start 08/30/16 at 06:00 Acetaminophen (Tylenol Liquid) 650 mg Q4H PRN GTB PAIN AND OR ELEVATED TEMP Last administered on 10/02/16 05:42; Admin Dose 650 MG; Start 08/29/16 at 23:00 Miscellaneous Information 1 ea NOTE XX ; Start 08/31/16 at 07:00 Glucose (Glutose) 15 gm Q15M PRN PO DECREASED GLUCOSE; Start 08/31/16 at 07:00 Glucose (Glutose) 22.5 gm Q15M PRN PO DECREASED GLUCOSE; Start 08/31/16 at 07: 00 Dextrose (D50w Syringe) 25 ml Q15M PRN IV DECREASED GLUCOSE Last administered on 10/01/16 06:28; Admin Dose 25 ML; Start 08/31/16 at 07:00 Dextrose (D50w Syringe) 50 ml Q15M PRN IV DECREASED GLUCOSE; Start 08/31/16 at 07:00 Glucagon (Glucagen) 1 mg Q15M PRN IM DECREASED GLUCOSE; Start 08/31/16 at 07:00 Glucose (Glutose) 15 gm Q15M PRN BUCCAL DECREASED GLUCOSE; Start 08/31/16 at 07 :00 Tobramycin/ Dexamethasone (Tobradex Oph Drop) 2 drop TID BOTH EYES Last administered on 10/11/16 14:37; Admin Dose 2 DROP; Start 10/07/16 at 13:00; Stop 10/13/16 at 12:59 CANDY JUAREZ Oct 11, 2016 16:11
[2016-10-11] MEDS: EPOETIN 10000 UNITS/1 ML INJ (ESRD) SC SCH (18:46)
[2016-10-11] MEDS: DOXAZOSIN 2 MG TAB GTB SCH (21:34)
[2016-10-12 06:03] LABS: ADD SCAN DIFF NO
[2016-10-12 06:17] LABS: BASOPHILS % 0.3 % (0.0-2.0); EOSINOPHILS # 0.3 10^3/ul (0.0-0.5); EOSINOPHILS % 4.1 % (0.0-7.0); HEMATOCRIT 30.9 % (42.0-52.0); HEMOGLOBIN 9.8 g/dl (14.0-18.0); LYMPHOCYTES # 0.9 10^3/ul (0.8-2.9); LYMPHOCYTES % 14.5 % (15.0-51.0); MEAN CORPUSCULAR HEMOGLOBIN 29.5 pg (29.0-33.0); MEAN CORPUSCULAR HGB CONC 31.7 g/dl (32.0-37.0); MEAN CORPUSCULAR VOLUME 93.1 fl (82.0-101.0); MEAN PLATELET VOLUME 9.5 fl (7.4-10.4); MONOCYTE # 0.5 10^3/ul (0.3-0.9); MONOCYTES % 7.7 % (0.0-11.0); NEUTROPHIL # 4.4 10^3/ul (1.6-7.5); NEUTROPHILS % 72.9 % (39.0-77.0); PLATELET COUNT 323 10^3/UL (140-415); RED BLOOD COUNT 3.32 10^6/ul (4.70-6.10); RED CELL DISTRIBUTION WIDTH 16.1 % (11.5-14.5); WHITE BLOOD COUNT 6.1 10^3/ul (4.8-10.8)
[2016-10-12 06:28] LABS: CALCIUM 10.4 mg/dl (8.4-10.2); CREATININE 2.95 mg/dl (0.61-1.24); POTASSIUM 3.8 mmol/L (3.5-5.1)
[2016-10-12] MEDS: LANSOPRAZOLE 30 MG CAP GTB SCH (06:28)
[2016-10-12 07:36] VITALS: BP 154/68; RESP 22
[2016-10-12] MEDS: LEVALBUTEROL (NEB) 0.63 MG/3 ML AMP NEB SCH ×4 (08:06→19:50)
--- NOTE | 2016-10-12 08:35 | PN ---
Date/Time of Note Date/Time of Note DATE: 10/12/16 TIME: 08:34 Assessment/Plan VTE Prophylaxis VTE Prophylaxis Intervention: ambulation Lines/Catheters IV Catheter Type (from [facility]): Central Line Central line still needed: No Urinary Cath still in place: No Assessment/Plan Assessment/Plan 1. End-stage renal disease. Plan for HD tomorrow. 3 hours, 3K bath, calcium 2.5. 2. Anemia. Continue to monitor hemoglobin and hematocrit levels. Continue Epogen. 3. Mineral bone disorder. Continue to monitor calcium and phosphorus levels. 4. Hypertension. Continue the current blood pressure regimen. 5. Hyponatremia. Continue dialysis with a 140 sodium bath. 6. Chronic respiratory failure. Status post trach. Continue the current treatment plan. 7. Diabetes. Continue Accu-Cheks and insulin sliding scale. 8. Chronic encephalopathy. No change. 9. Seizure disorder. Continue medical management. 10. Status post sepsis. 11. History of intracranial bleed. Subjective 24 Hr Interval Summary Free Text/Dictation he patient is stable. No acute events overnight. No fevers, chills, nausea or vomiting. No shortness of breath Exam/Review of Systems Vital Signs Vitals Vital Signs Date Time Temp Pulse Resp B/P Pulse Ox O2 Delivery O2 Flow Rate FiO2 10/12/16 08:06 72 18 97 Aerosol 5.0 28 10/12/16 07:36 98.5 154/68 Intake and Output 10/11/16 10/11/16 10/12/16 15:00 23:00 07:00 Intake Total 300 ml 850 ml Output Total 2500 ml Balance -2200 ml 850 ml Exam HEENT: Head is normocephalic. NECK: Supple. HEART: Regular rate. LUNGS: Showed diminished breath sounds at the base. ABDOMEN: Soft, nontender to palpation. No rebound or guarding. EXTREMITIES: Negative for clubbing, cyanosis. No edema. DERMATOLOGIC: No rashes. MUSCULOSKELETAL: Have no joint effusion. NEUROLOGIC: No change in exam. Results Result Diagram: 10/12/1628 10/12/1628 Results 24 hrs Laboratory Tests Test 10/12/16 05:28 White Blood Count 6.1 # Red Blood Count 3.32 L Hemoglobin 9.8 L Hematocrit 30.9 L Mean Corpuscular Volume 93.1 Mean Corpuscular Hemoglobin 29.5 Mean Corpuscular Hemoglobin Concent 31.7 L Red Cell Distribution Width 16.1 H Platelet Count 323 # Mean Platelet Volume 9.5 Neutrophils % 72.9 Lymphocytes % 14.5 L Monocytes % 7.7 Eosinophils % 4.1 Basophils % 0.3 Nucleated Red Blood Cells % 0.0 Neutrophils # 4.4 Lymphocytes # 0.9 Monocytes # 0.5 Eosinophils # 0.3 Basophils # 0.0 Nucleated Red Blood Cells # 0.0 Sodium Level 136 Potassium Level 3.8 Chloride Level 99 Carbon Dioxide Level 27 Anion Gap 14 Blood Urea Nitrogen 45 #H Creatinine 2.95 #H Glucose Level 99 Calcium Level 10.4 H Medications Medications Current Medications Amlodipine Besylate (Norvasc) 5 mg DAILY GTB Last administered on 10/11/16 11: 29; Admin Dose 5 MG; Start 08/30/16 at 09:00 Clonidine (Catapres) 0.1 mg DAILY PRN GTB ELEVATED SYSTOLIC BP; Start 08/29/16 at 23:00 Doxazosin Mesylate (Cardura) 2 mg QHS GTB Last administered on 10/11/16 21:34; Admin Dose 2 MG; Start 08/30/16 at 21:00 Folic Acid (Folic Acid) 1 mg DAILY GTB Last administered on 10/11/16 11:29; Admin Dose 1 MG; Start 08/30/16 at 09:00 Hydralazine HCl (Apresoline) 50 mg Q8 GTB Last administered on 10/12/16 06:28; Admin Dose 50 MG; Start 08/30/16 at 06:00 Levetiracetam (Keppra Liquid) 500 mg BID GTB Last administered on 10/11/16 21: 33; Admin Dose 500 MG; Start 08/30/16 at 09:00 Metoprolol Tartrate (Lopressor) 25 mg BID GTB Last administered on 10/11/16 21: 35; Admin Dose 25 MG; Start 08/30/16 at 09:00 Multivit/Ca Carb/ B Cmplx/FA/Prenat (Leah-Juan Jose) 1 tab DAILY GTB Last administered on 10/11/16 11:29; Admin Dose 1 TAB; Start 08/30/16 at 09:00 Ondansetron HCl (Zofran Tab) 4 mg Q6H PRN GTB NAUSEA AND/OR VOMITING; Start at 23:00 Senna (Senokot) 1 tab DAILY GTB Last administered on 10/11/16 11:30; Admin Dose 1 TAB; Start 08/30/16 at 09:00 Zolpidem Tartrate (Ambien) 5 mg QHS PRN GTB INSOMNIA; Start 08/29/16 at 23:00 Lansoprazole (Prevacid) 30 mg DAILY@06 GTB Last administered on 10/12/16 06:28 ; Admin Dose 30 MG; Start 08/30/16 at 06:00 Acetaminophen (Tylenol Liquid) 650 mg Q4H PRN GTB PAIN AND OR ELEVATED TEMP Last administered on 10/02/16 05:42; Admin Dose 650 MG; Start 08/29/16 at 23:00 Miscellaneous Information 1 ea NOTE XX ; Start 08/31/16 at 07:00 Glucose (Glutose) 15 gm Q15M PRN PO DECREASED GLUCOSE; Start 08/31/16 at 07:00 Glucose (Glutose) 22.5 gm Q15M PRN PO DECREASED GLUCOSE; Start 08/31/16 at 07: 00 Dextrose (D50w Syringe) 25 ml Q15M PRN IV DECREASED GLUCOSE Last administered on 10/01/16 06:28; Admin Dose 25 ML; Start 08/31/16 at 07:00 Dextrose (D50w Syringe) 50 ml Q15M PRN IV DECREASED GLUCOSE; Start 08/31/16 at 07:00 Glucagon (Glucagen) 1 mg Q15M PRN IM DECREASED GLUCOSE; Start 08/31/16 at 07:00 Glucose (Glutose) 15 gm Q15M PRN BUCCAL DECREASED GLUCOSE; Start 08/31/16 at 07 :00 Tobramycin/ Dexamethasone (Tobradex Oph Drop) 2 drop TID BOTH EYES Last administered on 10/11/16 21:35; Admin Dose 2 DROP; Start 10/07/16 at 13:00; Stop 10/13/16 at 12:59 MARYURI RYAN DO Oct 12, 2016 08:35
[2016-10-12] MEDS: SEVELAMER CARBONATE 0.8 GM PKT GTB SCH ×3 (09:06→17:46)
[2016-10-12] MEDS: FOLIC ACID 1 MG TAB GTB SCH (09:06)
[2016-10-12] MEDS: MULTIVIT/CA CARB/B CMPLX/FA TAB GTB SCH (09:06)
[2016-10-12] MEDS: LEVETIRACETAM (100 MG/ML) 5ML CUP GTB SCH ×2 (09:06→21:03)
[2016-10-12] MEDS: SENNA TAB GTB SCH (09:07)
[2016-10-12] MEDS: METOPROLOL 25 MG TAB GTB SCH ×2 (09:10→21:04)
[2016-10-12] MEDS: AMLODIPINE 5 MG TAB GTB SCH (09:10)
[2016-10-12] MEDS: TOBRAMYCIN/DEXAMETH 2.5 ML OPH BOTH EYES SCH ×3 (09:11→21:05)
--- NOTE | 2016-10-12 16:50 | PN ---
Date/Time of Note Date/Time of Note DATE: 10/12/16 TIME: 16:48 Assessment/Plan VTE Prophylaxis VTE Prophylaxis Intervention: SCD's Lines/Catheters IV Catheter Type (from [facility]): Central Line Central line still needed: Yes Urinary Cath still in place: No Assessment/Plan Chief Complaint/Hosp Course Patient remained stable, afebrile. Assessment/Plan - End-stage renal disease on hemodialysis. Continue hemodialysis per nephrology. Dr. Sales is following in nephrology consultation. - Hypertension. Continue metoprolol and hydralazine. - Anemia of chronic disease, transfuse as needed, continue Epogen. - S/p acute on chronic encephalopathy. - History of nontraumatic intracranial bleed, status post craniotomy. - Chronic respiratory failure with tracheostomy, currently on T-piece. - Possible seizure disorder. Continue Keppra. - Diabetes mellitus. Continue Levemir and NovoLog per mild algorithm sliding scale. - S/p sepsis - Status post HCAP. Status post treatment Further recommendations based on clinical course. Plan of care discussed with Dr. Godinez. Problems: Exam/Review of Systems Vital Signs Vitals Vital Signs Date Time Temp Pulse Resp B/P Pulse Ox O2 Delivery O2 Flow Rate FiO2 10/12/16 16:23 77 18 97 Aerosol 5.0 28 10/12/16 07:36 98.5 154/68 Intake and Output 10/11/16 10/11/16 10/12/16 15:00 23:00 07:00 Intake Total 300 ml 850 ml Output Total 2500 ml Balance -2200 ml 850 ml Exam Constitutional: Awake Neck: other (Tracheostomy), supple Respiratory: slightly diminished at the bases breath sounds, Cardiovascular: S1S2 Gastrointestinal: non-tender, other (G-tube), soft Extremities: normal pulses Neurological: confused Additional Comments Right chest permacath Results Result Diagram: 10/12/1628 10/12/1628 Results 24 hrs Laboratory Tests Test 10/12/16 05:28 White Blood Count 6.1 # Red Blood Count 3.32 L Hemoglobin 9.8 L Hematocrit 30.9 L Mean Corpuscular Volume 93.1 Mean Corpuscular Hemoglobin 29.5 Mean Corpuscular Hemoglobin Concent 31.7 L Red Cell Distribution Width 16.1 H Platelet Count 323 # Mean Platelet Volume 9.5 Neutrophils % 72.9 Lymphocytes % 14.5 L Monocytes % 7.7 Eosinophils % 4.1 Basophils % 0.3 Nucleated Red Blood Cells % 0.0 Neutrophils # 4.4 Lymphocytes # 0.9 Monocytes # 0.5 Eosinophils # 0.3 Basophils # 0.0 Nucleated Red Blood Cells # 0.0 Sodium Level 136 Potassium Level 3.8 Chloride Level 99 Carbon Dioxide Level 27 Anion Gap 14 Blood Urea Nitrogen 45 #H Creatinine 2.95 #H Glucose Level 99 Calcium Level 10.4 H Medications Medications Current Medications Amlodipine Besylate (Norvasc) 5 mg DAILY GTB Last administered on 10/12/16 09: 10; Admin Dose 5 MG; Start 08/30/16 at 09:00 Clonidine (Catapres) 0.1 mg DAILY PRN GTB ELEVATED SYSTOLIC BP; Start 08/29/16 at 23:00 Doxazosin Mesylate (Cardura) 2 mg QHS GTB Last administered on 10/11/16 21:34; Admin Dose 2 MG; Start 08/30/16 at 21:00 Folic Acid (Folic Acid) 1 mg DAILY GTB Last administered on 10/12/16 09:06; Admin Dose 1 MG; Start 08/30/16 at 09:00 Hydralazine HCl (Apresoline) 50 mg Q8 GTB Last administered on 10/12/16 13:19; Admin Dose 50 MG; Start 08/30/16 at 06:00 Levetiracetam (Keppra Liquid) 500 mg BID GTB Last administered on 10/12/16 09: 06; Admin Dose 500 MG; Start 08/30/16 at 09:00 Metoprolol Tartrate (Lopressor) 25 mg BID GTB Last administered on 10/12/16 09: 10; Admin Dose 25 MG; Start 08/30/16 at 09:00 Multivit/Ca Carb/ B Cmplx/FA/Prenat (Leah-Juan Jose) 1 tab DAILY GTB Last administered on 10/12/16 09:06; Admin Dose 1 TAB; Start 08/30/16 at 09:00 Ondansetron HCl (Zofran Tab) 4 mg Q6H PRN GTB NAUSEA AND/OR VOMITING; Start at 23:00 Senna (Senokot) 1 tab DAILY GTB Last administered on 10/12/16 09:07; Admin Dose 1 TAB; Start 08/30/16 at 09:00 Zolpidem Tartrate (Ambien) 5 mg QHS PRN GTB INSOMNIA; Start 08/29/16 at 23:00 Lansoprazole (Prevacid) 30 mg DAILY@06 GTB Last administered on 10/12/16 06:28 ; Admin Dose 30 MG; Start 08/30/16 at 06:00 Acetaminophen (Tylenol Liquid) 650 mg Q4H PRN GTB PAIN AND OR ELEVATED TEMP Last administered on 10/02/16 05:42; Admin Dose 650 MG; Start 08/29/16 at 23:00 Miscellaneous Information 1 ea NOTE XX ; Start 08/31/16 at 07:00 Glucose (Glutose) 15 gm Q15M PRN PO DECREASED GLUCOSE; Start 08/31/16 at 07:00 Glucose (Glutose) 22.5 gm Q15M PRN PO DECREASED GLUCOSE; Start 08/31/16 at 07: 00 Dextrose (D50w Syringe) 25 ml Q15M PRN IV DECREASED GLUCOSE Last administered on 10/01/16 06:28; Admin Dose 25 ML; Start 08/31/16 at 07:00 Dextrose (D50w Syringe) 50 ml Q15M PRN IV DECREASED GLUCOSE; Start 08/31/16 at 07:00 Glucagon (Glucagen) 1 mg Q15M PRN IM DECREASED GLUCOSE; Start 08/31/16 at 07:00 Glucose (Glutose) 15 gm Q15M PRN BUCCAL DECREASED GLUCOSE; Start 08/31/16 at 07 :00 Tobramycin/ Dexamethasone (Tobradex Oph Drop) 2 drop TID BOTH EYES Last administered on 10/12/16 13:16; Admin Dose 2 DROP; Start 10/07/16 at 13:00; Stop 10/13/16 at 12:59 NOELLE JIMENEZ Oct 12, 2016 16:50
[2016-10-12 20:00] VITALS: BP 161/69; RESP 20
[2016-10-12] MEDS: DOXAZOSIN 2 MG TAB GTB SCH (21:03)
[2016-10-13] VITALS (10 sets, daily range): BP systolic 120–158; BP diastolic 60–82; PULSE 76–86; RESP 18
[2016-10-13] MEDS: LANSOPRAZOLE 30 MG CAP GTB SCH (05:28)
--- NOTE | 2016-10-13 08:00 | PN ---
Date/Time of Note Date/Time of Note DATE: 10/13/16 TIME: 07:58 Assessment/Plan VTE Prophylaxis VTE Prophylaxis Intervention: ambulation Lines/Catheters IV [facility] Type [facility]from [facility] Central Line Central line still needed: No Urinary Cath still in place: No Assessment/Plan Assessment/Plan 1. End-stage renal disease. Plan for HD today. 3 hours, 3K bath, calcium 2.5. 2. Anemia. Continue to monitor hemoglobin and hematocrit levels. Continue Epogen. 3. Mineral bone disorder. Continue to monitor calcium and phosphorus levels. 4. Hypertension. Continue the current blood pressure regimen. 5. Hyponatremia. Continue dialysis with a 140 sodium bath. 6. Chronic respiratory failure. Status post trach. Continue the current treatment plan. 7. Diabetes. Continue Accu-Cheks and insulin sliding scale. 8. Chronic encephalopathy. No change. 9. Seizure disorder. Continue medical management. 10. Status post sepsis. 11. History of intracranial bleed. Subjective 24 Hr Interval Summary Free Text/Dictation the patient is stable. No acute events overnight. No fevers, chills, nausea or vomiting. No shortness of breath Exam/Review of Systems Vital Signs Vitals Vital Signs Date Time Temp Pulse Resp B/P Pulse Ox O2 Delivery O2 Flow Rate FiO2 10/13/16 07:37 98.9 82 18 140/66 98 10/13/16 01:07 5.0 28 10/12/16 19:50 Aerosol Intake and Output 10/12/16 10/12/16 10/13/16 15:00 23:00 07:00 Intake Total 690 ml Balance 690 ml Exam HEENT: Head is normocephalic. NECK: Supple. HEART: Regular rate. LUNGS: Showed diminished breath sounds at the base. ABDOMEN: Soft, nontender to palpation. No rebound or guarding. EXTREMITIES: Negative for clubbing, cyanosis. No edema. DERMATOLOGIC: No rashes. MUSCULOSKELETAL: Have no joint effusion. NEUROLOGIC: No change in exam. Results Result Diagram: 10/12/1652710/12/16527 Medications Medications Current Medications Amlodipine Besylate (Norvasc) 5 mg DAILY GTB Last administered on 10/12/16t 09: 10; Admin Dose 5 MG; Start 08/30/16 at 09:00 Clonidine (Catapres) 0.1 mg DAILY PRN GTB ELEVATED SYSTOLIC BP; Start 08/29/16 at 23:00 Doxazosin Mesylate (Cardura) 2 mg QHS GTB Last administered on 10/12/16 21:03; Admin Dose 2 MG; Start 08/30/16 at 21:00 Folic Acid (Folic Acid) 1 mg DAILY GTB Last administered on 10/12/16 09:06; Admin Dose 1 MG; Start 08/30/16 at 09:00 Hydralazine HCl (Apresoline) 50 mg Q8 GTB Last administered on 10/13/16 05:35 ; Admin Dose 50 MG; Start 08/30/16 at 06:00 Levetiracetam (Keppra Liquid) 500 mg BID GTB Last administered on 10/12/16 21: 03; Admin Dose 500 MG; Start 08/30/16 at 09:00 Metoprolol Tartrate (Lopressor) 25 mg BID GTB Last administered on 10/12/16 21: 04; Admin Dose 25 MG; Start 08/30/16 at 09:00 Multivit/Ca Carb/ B Cmplx/FA/Prenat (Leah-Juan Jose) 1 tab DAILY GTB Last administered on 10/12/16 09:06; Admin Dose 1 TAB; Start 08/30/16 at 09:00 Ondansetron HCl (Zofran Tab) 4 mg Q6H PRN GTB NAUSEA AND/OR VOMITING; Start at 23:00 Senna (Senokot) 1 tab DAILY GTB Last administered on 10/12/16 09:07; Admin Dose 1 TAB; Start 08/30/16 at 09:00 Zolpidem Tartrate (Ambien) 5 mg QHS PRN GTB INSOMNIA; Start 08/29/16 at 23:00 Lansoprazole (Prevacid) 30 mg DAILY@06 GTB Last administered on 10/13/16 05:28 ; Admin Dose 30 MG; Start 08/30/16 at 06:00 Acetaminophen (Tylenol Liquid) 650 mg Q4H PRN GTB PAIN AND OR ELEVATED TEMP Last administered on 10/02/16 05:42; Admin Dose 650 MG; Start 08/29/16 at 23:00 Miscellaneous Information 1 ea NOTE XX ; Start 08/31/16 at 07:00 Glucose (Glutose) 15 gm Q15M PRN PO DECREASED GLUCOSE; Start 08/31/16 at 07:00 Glucose (Glutose) 22.5 gm Q15M PRN PO DECREASED GLUCOSE; Start 08/31/16 at 07: 00 Dextrose (D50w Syringe) 25 ml Q15M PRN IV DECREASED GLUCOSE Last administered on 10/01/16 06:28; Admin Dose 25 ML; Start 08/31/16 at 07:00 Dextrose (D50w Syringe) 50 ml Q15M PRN IV DECREASED GLUCOSE; Start 08/31/16 at 07:00 Glucagon (Glucagen) 1 mg Q15M PRN IM DECREASED GLUCOSE; Start 08/31/16 at 07:00 Glucose (Glutose) 15 gm Q15M PRN BUCCAL DECREASED GLUCOSE; Start 08/31/16 at 07 :00 Tobramycin/ Dexamethasone (Tobradex Oph Drop) 2 drop TID BOTH EYES Last administered on 10/12/16 21:05; Admin Dose 2 DROP; Start 10/07/16 at 13:00; Stop 10/13/16 at 12:59 MARYURI RYAN DO Oct 13, 2016 08:00
[2016-10-13] MEDS: LEVALBUTEROL (NEB) 0.63 MG/3 ML AMP NEB SCH ×4 (08:50→20:13)
[2016-10-13] MEDS: AMLODIPINE 5 MG TAB GTB SCH (09:00)
[2016-10-13] MEDS: METOPROLOL 25 MG TAB GTB SCH ×2 (09:00→21:22)
[2016-10-13] MEDS: SENNA TAB GTB SCH (09:15)
[2016-10-13] MEDS: SEVELAMER CARBONATE 0.8 GM PKT GTB SCH ×3 (09:15→18:37)
[2016-10-13] MEDS: LEVETIRACETAM (100 MG/ML) 5ML CUP GTB SCH ×2 (09:15→21:22)
[2016-10-13] MEDS: MULTIVIT/CA CARB/B CMPLX/FA TAB GTB SCH (09:15)
[2016-10-13] MEDS: TOBRAMYCIN/DEXAMETH 2.5 ML OPH BOTH EYES SCH (09:16)
[2016-10-13] MEDS: FOLIC ACID 1 MG TAB GTB SCH (09:16)
--- NOTE | 2016-10-13 11:19 | PN ---
Date/Time of Note Date/Time of Note DATE: 10/13/16 TIME: 11:18 Assessment/Plan VTE Prophylaxis VTE Prophylaxis Intervention: other Lines/Catheters [facility] Central Line Central line still needed: Yes Urinary Cath still in place: No Assessment/Plan Chief Complaint/Hosp Course - End-stage renal disease on hemodialysis. Continue hemodialysis per nephrology. Dr. Sales is following in nephrology consultation. - Hypertension. Continue metoprolol and hydralazine. - Anemia of chronic disease, continue Epogen. - Acute on chronic encephalopathy, resolved. MRI of the brain is negative for any acute stroke. - S/p sepsis Dr. Benjy lang is following in infection disease consultation. - Status post HCAP. Status post treatment - Chronic respiratory failure with tracheostomy, currently on T-piece. Dr. Freitas is following in pulmonology consultation - History of nontraumatic intracranial bleed, status post craniotomy. - Possible seizure disorder. Continue Keppra. - Diabetes mellitus. Continue Levemir and NovoLog per mild algorithm sliding scale. Awaits half-way facility placement Problems: Subjective 24 Hr Interval Summary Free Text/Dictation Patient resting comfortably Exam/Review of Systems Vital Signs Vitals Vital Signs Date Time Temp Pulse Resp B/P Pulse Ox O2 Delivery O2 Flow Rate FiO2 10/13/16 08:50 85 22 96 Aerosol 5.0 28 10/13/16 07:37 98.9 140/66 Intake and Output 10/12/16 10/12/16 10/13/16 15:00 23:00 07:00 Intake Total 690 ml Balance 690 ml Exam Constitutional: well developed Head: atraumatic, normocephalic Neck: supple Respiratory: clear to auscultation Cardiovascular: regular rate and rhythm Gastrointestinal: non-tender, soft Extremities: normal pulses Results Result Diagram: 10/12/1652710/12/16527 Medications Medications Current Medications Amlodipine Besylate (Norvasc) 5 mg DAILY GTB Last administered on 10/12/16 09: 10; Admin Dose 5 MG; Start 08/30/16 at 09:00 Clonidine (Catapres) 0.1 mg DAILY PRN GTB ELEVATED SYSTOLIC BP; Start 08/29/16 at 23:00 Doxazosin Mesylate (Cardura) 2 mg QHS GTB Last administered on 10/12/16 21:03; Admin Dose 2 MG; Start 08/30/16 at 21:00 Folic Acid (Folic Acid) 1 mg DAILY GTB Last administered on 10/13/16 09:16; Admin Dose 1 MG; Start 08/30/16 at 09:00 Hydralazine HCl (Apresoline) 50 mg Q8 GTB Last administered on 10/13/16 05:35 ; Admin Dose 50 MG; Start 08/30/16 at 06:00 Levetiracetam (Keppra Liquid) 500 mg BID GTB Last administered on 10/13/16 09: 15; Admin Dose 500 MG; Start 08/30/16 at 09:00 Metoprolol Tartrate (Lopressor) 25 mg BID GTB Last administered on 10/12/16 21: 04; Admin Dose 25 MG; Start 08/30/16 at 09:00 Multivit/Ca Carb/ B Cmplx/FA/Prenat (Leah-Juan Jose) 1 tab DAILY GTB Last administered on 10/13/16 09:15; Admin Dose 1 TAB; Start 08/30/16 at 09:00 Ondansetron HCl (Zofran Tab) 4 mg Q6H PRN GTB NAUSEA AND/OR VOMITING; Start at 23:00 Senna (Senokot) 1 tab DAILY GTB Last administered on 10/13/16 09:15; Admin Dose 1 TAB; Start 08/30/16 at 09:00 Zolpidem Tartrate (Ambien) 5 mg QHS PRN GTB INSOMNIA; Start 08/29/16 at 23:00 Lansoprazole (Prevacid) 30 mg DAILY@06 GTB Last administered on 10/13/16 05:28 ; Admin Dose 30 MG; Start 08/30/16 at 06:00 Acetaminophen (Tylenol Liquid) 650 mg Q4H PRN GTB PAIN AND OR ELEVATED TEMP Last administered on 10/02/16 05:42; Admin Dose 650 MG; Start 08/29/16 at 23:00 Miscellaneous Information 1 ea NOTE XX ; Start 08/31/16 at 07:00 Glucose (Glutose) 15 gm Q15M PRN PO DECREASED GLUCOSE; Start 08/31/16 at 07:00 Glucose (Glutose) 22.5 gm Q15M PRN PO DECREASED GLUCOSE; Start 08/31/16 at 07: 00 Dextrose (D50w Syringe) 25 ml Q15M PRN IV DECREASED GLUCOSE Last administered on 10/01/16 06:28; Admin Dose 25 ML; Start 08/31/16 at 07:00 Dextrose (D50w Syringe) 50 ml Q15M PRN IV DECREASED GLUCOSE; Start 08/31/16 at 07:00 Glucagon (Glucagen) 1 mg Q15M PRN IM DECREASED GLUCOSE; Start 08/31/16 at 07:00 Glucose (Glutose) 15 gm Q15M PRN BUCCAL DECREASED GLUCOSE; Start 08/31/16 at 07 :00 Tobramycin/ Dexamethasone (Tobradex Oph Drop) 2 drop TID BOTH EYES Last administered on 10/13/16 09:16; Admin Dose 2 DROP; Start 10/07/16 at 13:00; Stop 10/13/16 at 12:59 ARY ROMAN Oct 13, 2016 11:19
[2016-10-13] MEDS: EPOETIN 10000 UNITS/1 ML INJ (ESRD) SC SCH (14:27)
[2016-10-13] MEDS: DOXAZOSIN 2 MG TAB GTB SCH (21:21)
[2016-10-14] MEDS: LANSOPRAZOLE 30 MG CAP GTB SCH (05:50)
[2016-10-14 07:46] VITALS: BP 147/67; RESP 18
[2016-10-14] MEDS: LEVALBUTEROL (NEB) 0.63 MG/3 ML AMP NEB SCH ×4 (08:14→20:12)
--- NOTE | 2016-10-14 08:48 | PN ---
Date/Time of Note Date/Time of Note DATE: 10/14/16 TIME: 08:46 Assessment/Plan VTE Prophylaxis VTE Prophylaxis Intervention: ambulation Lines/Catheters [facility] Saline Lock Urinary Cath still in place: No Assessment/Plan Assessment/Plan 1. End-stage renal disease. HD yesterday plan for hd tomorrow 3 hours, 3K bath, calcium 2.5. 2. Anemia. Continue to monitor hemoglobin and hematocrit levels. Continue Epogen. 3. Mineral bone disorder. Continue to monitor calcium and phosphorus levels. 4. Hypertension. Continue the current blood pressure regimen. 5. Hyponatremia. Continue dialysis with a 140 sodium bath. 6. Chronic respiratory failure. Status post trach. Continue the current treatment plan. 7. Diabetes. Continue Accu-Cheks and insulin sliding scale. 8. Chronic encephalopathy. No change. 9. Seizure disorder. Continue medical management. 10. Status post sepsis. 11. History of intracranial bleed. Subjective 24 Hr Interval Summary Free Text/Dictation the patient is stable. No acute events overnight. No fevers, chills, nausea or vomiting. No shortness of breath Exam/Review of Systems Vital Signs Vitals Vital Signs Date Time Temp Pulse Resp B/P Pulse Ox O2 Delivery O2 Flow Rate FiO2 10/14/16 08:14 100 5.0 28 10/14/16 08:14 81 20 Aerosol T Tube 10/14/16 07:46 98.8 147/67 Intake and Output 10/13/16 10/13/16 10/14/16 15:00 23:00 07:00 Intake Total 500 ml Output Total 3000 ml Balance -2500 ml Exam HEENT: Head is normocephalic. NECK: Supple. HEART: Regular rate. LUNGS: Showed diminished breath sounds at the base. ABDOMEN: Soft, nontender to palpation. No rebound or guarding. EXTREMITIES: Negative for clubbing, cyanosis. No edema. DERMATOLOGIC: No rashes. MUSCULOSKELETAL: Have no joint effusion. NEUROLOGIC: No change in exam. Results Result Diagram: 10/12/1628 10/12/16527 Medications Medications Current Medications Amlodipine Besylate (Norvasc) 5 mg DAILY GTB Last administered on 10/12/16t 09: 10; Admin Dose 5 MG; Start 08/30/16 at 09:00 Clonidine (Catapres) 0.1 mg DAILY PRN GTB ELEVATED SYSTOLIC BP; Start 08/29/16 at 23:00 Doxazosin Mesylate (Cardura) 2 mg QHS GTB Last administered on 10/13/16 21:21 ; Admin Dose 2 MG; Start 08/30/16 at 21:00 Folic Acid (Folic Acid) 1 mg DAILY GTB Last administered on 10/13/16 09:16; Admin Dose 1 MG; Start 08/30/16 at 09:00 Hydralazine HCl (Apresoline) 50 mg Q8 GTB Last administered on 10/14/16 05:50 ; Admin Dose 50 MG; Start 08/30/16 at 06:00 Levetiracetam (Keppra Liquid) 500 mg BID GTB Last administered on 10/13/16 21: 22; Admin Dose 500 MG; Start 08/30/16 at 09:00 Metoprolol Tartrate (Lopressor) 25 mg BID GTB Last administered on 10/13/16 21 :22; Admin Dose 25 MG; Start 08/30/16 at 09:00 Multivit/Ca Carb/ B Cmplx/FA/Prenat (Leah-Juan Jose) 1 tab DAILY GTB Last administered on 10/13/16 09:15; Admin Dose 1 TAB; Start 08/30/16 at 09:00 Ondansetron HCl (Zofran Tab) 4 mg Q6H PRN GTB NAUSEA AND/OR VOMITING; Start at 23:00 Senna (Senokot) 1 tab DAILY GTB Last administered on 10/13/16 09:15; Admin Dose 1 TAB; Start 08/30/16 at 09:00 Zolpidem Tartrate (Ambien) 5 mg QHS PRN GTB INSOMNIA; Start 08/29/16 at 23:00 Lansoprazole (Prevacid) 30 mg DAILY@06 GTB Last administered on 10/14/16 05:50 ; Admin Dose 30 MG; Start 08/30/16 at 06:00 Acetaminophen (Tylenol Liquid) 650 mg Q4H PRN GTB PAIN AND OR ELEVATED TEMP Last administered on 10/02/16 05:42; Admin Dose 650 MG; Start 08/29/16 at 23:00 Miscellaneous Information 1 ea NOTE XX ; Start 08/31/16 at 07:00 Glucose (Glutose) 15 gm Q15M PRN PO DECREASED GLUCOSE; Start 08/31/16 at 07:00 Glucose (Glutose) 22.5 gm Q15M PRN PO DECREASED GLUCOSE; Start 08/31/16 at 07: 00 Dextrose (D50w Syringe) 25 ml Q15M PRN IV DECREASED GLUCOSE Last administered on 10/01/16 06:28; Admin Dose 25 ML; Start 08/31/16 at 07:00 Dextrose (D50w Syringe) 50 ml Q15M PRN IV DECREASED GLUCOSE; Start 08/31/16 at 07:00 Glucagon (Glucagen) 1 mg Q15M PRN IM DECREASED GLUCOSE; Start 08/31/16 at 07:00 Glucose (Glutose) 15 gm Q15M PRN BUCCAL DECREASED GLUCOSE; Start 08/31/16 at 07 :00 MARYURI RYAN DO Oct 14, 2016 08:48
[2016-10-14] MEDS: LEVETIRACETAM (100 MG/ML) 5ML CUP GTB SCH ×2 (09:06→20:55)
[2016-10-14] MEDS: SEVELAMER CARBONATE 0.8 GM PKT GTB SCH ×3 (09:06→17:36)
[2016-10-14] MEDS: METOPROLOL 25 MG TAB GTB SCH ×2 (09:07→20:55)
[2016-10-14] MEDS: FOLIC ACID 1 MG TAB GTB SCH (09:07)
[2016-10-14] MEDS: MULTIVIT/CA CARB/B CMPLX/FA TAB GTB SCH (09:07)
[2016-10-14] MEDS: SENNA TAB GTB SCH (09:07)
[2016-10-14] MEDS: AMLODIPINE 5 MG TAB GTB SCH (09:07)
--- NOTE | 2016-10-14 10:56 | PN ---
Date/Time of Note Date/Time of Note DATE: 10/14/16 TIME: 10:56 Assessment/Plan VTE Prophylaxis VTE Prophylaxis Intervention: other Lines/Catheters [facility] C[facility] Type [facility]from [facility] Saline Lock Urinary Cath still in place: No Assessment/Plan Chief Complaint/Hosp Course - End-stage renal disease on hemodialysis. Continue hemodialysis per nephrology. Dr. Sales is following in nephrology consultation. - Hypertension. Continue metoprolol and hydralazine. - Anemia of chronic disease, continue Epogen. - Acute on chronic encephalopathy, resolved. MRI of the brain is negative for any acute stroke. - S/p sepsis Dr. Bnejy lang is following in infection disease consultation. - Status post HCAP. Status post treatment - Chronic respiratory failure with tracheostomy, currently on T-piece. Dr. Freitas is following in pulmonology consultation - History of nontraumatic intracranial bleed, status post craniotomy. - Possible seizure disorder. Continue Keppra. - Diabetes mellitus. Continue Levemir and NovoLog per mild algorithm sliding scale. Awaits [facility] facility placement Problems: Subjective 24 Hr Interval Summary Free Text/Dictation Patient awake, trach in place Exam/Review of Systems Vital Signs Vitals Vital Signs Date Time Temp Pulse Resp B/P Pulse Ox O2 Delivery O2 Flow Rate FiO2 10/14/16 08:14 100 5.0 28 10/14/16 08:14 81 20 Aerosol T Tube 10/14/16 07:46 98.8 147/67 Intake and Output 10/13/16 10/13/16 10/14/16 15:00 23:00 07:00 Intake Total 500 ml Output Total 3000 ml Balance -2500 ml Exam Constitutional: well developed Head: atraumatic, normocephalic Neck: supple Respiratory: clear to auscultation Cardiovascular: regular rate and rhythm Gastrointestinal: non-tender, soft Extremities: normal pulses Results Result Diagram: 10/12/1652710/12/16527 Medications Medications Current Medications Amlodipine Besylate (Norvasc) 5 mg DAILY GTB Last administered on 10/14/16t 09: 07; Admin Dose 5 MG; Start 08/30/16 at 09:00 Clonidine (Catapres) 0.1 mg DAILY PRN GTB ELEVATED SYSTOLIC BP; Start 08/29/16 at 23:00 Doxazosin Mesylate (Cardura) 2 mg QHS GTB Last administered on 10/13/16 21:21 ; Admin Dose 2 MG; Start 08/30/16 at 21:00 Folic Acid (Folic Acid) 1 mg DAILY GTB Last administered on 10/14/16 09:07; Admin Dose 1 MG; Start 08/30/16 at 09:00 Hydralazine HCl (Apresoline) 50 mg Q8 GTB Last administered on 10/14/16 05:50 ; Admin Dose 50 MG; Start 08/30/16 at 06:00 Levetiracetam (Keppra Liquid) 500 mg BID GTB Last administered on 10/14/16 09: 06; Admin Dose 500 MG; Start 08/30/16 at 09:00 Metoprolol Tartrate (Lopressor) 25 mg BID GTB Last administered on 10/14/16 09 :07; Admin Dose 25 MG; Start 08/30/16 at 09:00 Multivit/Ca Carb/ B Cmplx/FA/Prenat (Leah-Juan Jose) 1 tab DAILY GTB Last administered on 10/14/16 09:07; Admin Dose 1 TAB; Start 08/30/16 at 09:00 Ondansetron HCl (Zofran Tab) 4 mg Q6H PRN GTB NAUSEA AND/OR VOMITING; Start at 23:00 Senna (Senokot) 1 tab DAILY GTB Last administered on 10/14/16 09:07; Admin Dose 1 TAB; Start 08/30/16 at 09:00 Zolpidem Tartrate (Ambien) 5 mg QHS PRN GTB INSOMNIA; Start 08/29/16 at 23:00 Lansoprazole (Prevacid) 30 mg DAILY@06 GTB Last administered on 10/14/16 05:50 ; Admin Dose 30 MG; Start 08/30/16 at 06:00 Acetaminophen (Tylenol Liquid) 650 mg Q4H PRN GTB PAIN AND OR ELEVATED TEMP Last administered on 10/02/16 05:42; Admin Dose 650 MG; Start 08/29/16 at 23:00 Miscellaneous Information 1 ea NOTE XX ; Start 08/31/16 at 07:00 Glucose (Glutose) 15 gm Q15M PRN PO DECREASED GLUCOSE; Start 08/31/16 at 07:00 Glucose (Glutose) 22.5 gm Q15M PRN PO DECREASED GLUCOSE; Start 08/31/16 at 07: 00 Dextrose (D50w Syringe) 25 ml Q15M PRN IV DECREASED GLUCOSE Last administered on 10/01/16 06:28; Admin Dose 25 ML; Start 08/31/16 at 07:00 Dextrose (D50w Syringe) 50 ml Q15M PRN IV DECREASED GLUCOSE; Start 08/31/16 at 07:00 Glucagon (Glucagen) 1 mg Q15M PRN IM DECREASED GLUCOSE; Start 08/31/16 at 07:00 Glucose (Glutose) 15 gm Q15M PRN BUCCAL DECREASED GLUCOSE; Start 08/31/16 at 07 :00 ARY ROMAN Oct 14, 2016 10:56
[2016-10-14 20:06] VITALS: BP 147/64; RESP 18
[2016-10-14] MEDS: DOXAZOSIN 2 MG TAB GTB SCH (20:55)
[2016-10-15] MEDS: LANSOPRAZOLE 30 MG CAP GTB SCH (06:44)
[2016-10-15 07:15] VITALS: BP 190/82; RESP 18
[2016-10-15] MEDS: LEVALBUTEROL (NEB) 0.63 MG/3 ML AMP NEB SCH ×3 (08:00→20:00)
[2016-10-15] MEDS: MULTIVIT/CA CARB/B CMPLX/FA TAB GTB SCH (08:28)
[2016-10-15] MEDS: FOLIC ACID 1 MG TAB GTB SCH (08:28)
[2016-10-15] MEDS: SENNA TAB GTB SCH (08:28)
[2016-10-15] MEDS: SEVELAMER CARBONATE 0.8 GM PKT GTB SCH ×3 (08:28→17:39)
[2016-10-15] MEDS: LEVETIRACETAM (100 MG/ML) 5ML CUP GTB SCH ×2 (08:28→20:55)
[2016-10-15] MEDS: AMLODIPINE 5 MG TAB GTB SCH (08:29)
[2016-10-15] MEDS: METOPROLOL 25 MG TAB GTB SCH ×2 (08:29→20:55)
[2016-10-15 08:35] VITALS: BP 182/82; PULSE 95
--- NOTE | 2016-10-15 08:48 | PN ---
DATE: 10/15/2016 SUBJECTIVE: The patient is stable, no acute events overnight. No fevers, chills, nausea, vomiting. The patient is scheduled for dialysis today. No other events noted. OBJECTIVE: VITAL SIGNS: Blood pressure is 140/64, respirations are 16, pulse 72, temperature 98.6. HEENT: Head is normocephalic. NECK: Supple. HEART: Regular rate. LUNGS: Show diminished breath sounds at the base. ABDOMEN: Soft, nontender to palpation, no rebound or guarding. EXTREMITIES: Negative for clubbing, cyanosis, no edema. DERMATOLOGIC: No rashes. MUSCULOSKELETAL: No joint effusions. NEUROLOGIC: No change in exam. MEDICATIONS: Have been reviewed. LABORATORY DATA: Has been reviewed. ASSESSMENT AND PLAN: 1. End-stage renal disease. Plan for dialysis today. Will dialyze 3 hours, 3 K bath, calcium 2.5. 2. Anemia. Continue to monitor hemoglobin and hematocrit levels. Continue Epogen. 3. Mineral bone disorder. Continue to monitor calcium and phosphorus levels. 4. Hypertension. Continue current blood pressure regimen. Continue ultrafiltration dialysis. 5. Hyponatremia, improved. Continue to monitor. 6. Chronic respiratory failure, status post trach. Continue current treatment plan. 7. Diabetes. Continue current insulin regimen. 8. Chronic encephalopathy. No change. 9. Seizure disorder. Continue medical management. 10. Status post sepsis. 11. History of intracranial bleed. Dictated By: MARYURI WALLER/FRANCES Conf#: [id number] DID#: [id number]
[2016-10-15 09:00] VITALS: BP 133/60; PULSE 80
--- NOTE | 2016-10-15 13:06 | PN ---
Date/Time of Note Date/Time of Note DATE: 10/15/16 TIME: 13:04 Assessment/Plan VTE Prophylaxis VTE Prophylaxis Intervention: SCD's Lines/Catheters IV C[facility]ter Type (from [facility]): Permacath Urinary Cath still in place: No Assessment/Plan Chief Complaint/Hosp Course No acute events overnight, patient remains hemodynamically stable, tolerates G- tube feeding well, pending hemodialysis today. No [facility] facility bed available per discussion with case management today. Assessment/Plan - End-stage renal disease on hemodialysis. Continue hemodialysis per nephrology. Dr. Sales is following in nephrology consultation. - Hypertension. Continue metoprolol and hydralazine. - Anemia of chronic disease, transfuse as needed, continue Epogen. - S/p acute on chronic encephalopathy. - History of nontraumatic intracranial bleed, status post craniotomy. - Chronic respiratory failure with tracheostomy. - Possible seizure disorder. Continue Keppra. - Diabetes mellitus. Continue Levemir and NovoLog per mild algorithm sliding scale. - S/p sepsis - S/p HCAP. Further recommendations based on clinical course. Plan of care discussed with Dr. Godinez. Problems: Exam/Review of Systems Vital Signs Vitals Vital Signs Date Time Temp Pulse Resp B/P Pulse Ox O2 Delivery O2 Flow Rate FiO2 10/15/16 11:59 75 18 99 Aerosol 5.0 28 T Tube 10/15/16 09:00 133/60 10/15/16 07:15 98.6 Intake and Output 10/14/16 10/14/16 10/15/16 15:00 23:00 07:00 Intake Total 720 ml Balance 720 ml Exam Constitutional: Awake Neck: other (Tracheostomy), supple Respiratory: slightly diminished at the bases breath sounds, Cardiovascular: S1S2 Gastrointestinal: non-tender, other (G-tube), soft Extremities: normal pulses Neurological: confused Additional Comments Right chest permacath Results Result Diagram: 10/12/1652710/12/16527 Medications Medications Current Medications Amlodipine Besylate (Norvasc) 5 mg DAILY GTB Last administered on 10/15/16t 08: 29; Admin Dose 5 MG; Start 08/30/16 at 09:00 Clonidine (Catapres) 0.1 mg DAILY PRN GTB ELEVATED SYSTOLIC BP; Start 08/29/16 at 23:00 Doxazosin Mesylate (Cardura) 2 mg QHS GTB Last administered on 10/14/16 20:55 ; Admin Dose 2 MG; Start 08/30/16 at 21:00 Folic Acid (Folic Acid) 1 mg DAILY GTB Last administered on 10/15/16 08:28; Admin Dose 1 MG; Start 08/30/16 at 09:00 Hydralazine HCl (Apresoline) 50 mg Q8 GTB Last administered on 10/15/16 06:44 ; Admin Dose 50 MG; Start 08/30/16 at 06:00 Levetiracetam (Keppra Liquid) 500 mg BID GTB Last administered on 10/15/16 08: 28; Admin Dose 500 MG; Start 08/30/16 at 09:00 Metoprolol Tartrate (Lopressor) 25 mg BID GTB Last administered on 10/15/16 08 :29; Admin Dose 25 MG; Start 08/30/16 at 09:00 Multivit/Ca Carb/ B Cmplx/FA/Prenat (Leah-Juan Jose) 1 tab DAILY GTB Last administered on 10/15/16 08:28; Admin Dose 1 TAB; Start 08/30/16 at 09:00 Ondansetron HCl (Zofran Tab) 4 mg Q6H PRN GTB NAUSEA AND/OR VOMITING; Start at 23:00 Senna (Senokot) 1 tab DAILY GTB Last administered on 10/15/16 08:28; Admin Dose 1 TAB; Start 08/30/16 at 09:00 Zolpidem Tartrate (Ambien) 5 mg QHS PRN GTB INSOMNIA; Start 08/29/16 at 23:00 Lansoprazole (Prevacid) 30 mg DAILY@06 GTB Last administered on 10/15/16 06:44 ; Admin Dose 30 MG; Start 08/30/16 at 06:00 Acetaminophen (Tylenol Liquid) 650 mg Q4H PRN GTB PAIN AND OR ELEVATED TEMP Last administered on 10/02/16 05:42; Admin Dose 650 MG; Start 08/29/16 at 23:00 Miscellaneous Information 1 ea NOTE XX ; Start 08/31/16 at 07:00 Glucose (Glutose) 15 gm Q15M PRN PO DECREASED GLUCOSE; Start 08/31/16 at 07:00 Glucose (Glutose) 22.5 gm Q15M PRN PO DECREASED GLUCOSE; Start 08/31/16 at 07: 00 Dextrose (D50w Syringe) 25 ml Q15M PRN IV DECREASED GLUCOSE Last administered on 10/01/16 06:28; Admin Dose 25 ML; Start 08/31/16 at 07:00 Dextrose (D50w Syringe) 50 ml Q15M PRN IV DECREASED GLUCOSE; Start 08/31/16 at 07:00 Glucagon (Glucagen) 1 mg Q15M PRN IM DECREASED GLUCOSE; Start 08/31/16 at 07:00 Glucose (Glutose) 15 gm Q15M PRN BUCCAL DECREASED GLUCOSE; Start 08/31/16 at 07 :00 NOELLE JIMENEZ Oct 15, 2016 13:06
[2016-10-15 19:43] VITALS: BP 134/63; RESP 18
[2016-10-15] MEDS: DOXAZOSIN 2 MG TAB GTB SCH (20:55)
[2016-10-16] VITALS (12 sets, daily range): BP systolic 90–138; BP diastolic 42–64; PULSE 77–91; RESP 18–20
[2016-10-16] MEDS: LANSOPRAZOLE 30 MG CAP GTB SCH (05:35)
[2016-10-16 06:18] LABS: ADD SCAN DIFF NO
[2016-10-16 06:22] LABS: BASOPHILS % 0.3 % (0.0-2.0); EOSINOPHILS # 0.2 10^3/ul (0.0-0.5); EOSINOPHILS % 2.6 % (0.0-7.0); HEMATOCRIT 28.8 % (42.0-52.0); HEMOGLOBIN 9.4 g/dl (14.0-18.0); LYMPHOCYTES # 0.8 10^3/ul (0.8-2.9); LYMPHOCYTES % 12.3 % (15.0-51.0); MEAN CORPUSCULAR HEMOGLOBIN 29.7 pg (29.0-33.0); MEAN CORPUSCULAR HGB CONC 32.6 g/dl (32.0-37.0); MEAN CORPUSCULAR VOLUME 91.1 fl (82.0-101.0); MEAN PLATELET VOLUME 9.6 fl (7.4-10.4); MONOCYTE # 0.5 10^3/ul (0.3-0.9); MONOCYTES % 7.3 % (0.0-11.0); NEUTROPHIL # 5.1 10^3/ul (1.6-7.5); PLATELET COUNT 358 10^3/UL (140-415); RED BLOOD COUNT 3.16 10^6/ul (4.70-6.10); RED CELL DISTRIBUTION WIDTH 15.2 % (11.5-14.5); WHITE BLOOD COUNT 6.6 10^3/ul (4.8-10.8)
[2016-10-16 06:42] LABS: CALCIUM 10.9 mg/dl (8.4-10.2); CREATININE 6.11 mg/dl (0.61-1.24); POTASSIUM 4.6 mmol/L (3.5-5.1)
[2016-10-16] MEDS: SEVELAMER CARBONATE 0.8 GM PKT GTB SCH ×3 (08:15→18:28)
[2016-10-16] MEDS: LEVALBUTEROL (NEB) 0.63 MG/3 ML AMP NEB SCH ×4 (09:22→19:40)
--- NOTE | 2016-10-16 10:41 | PN ---
DATE: 10/16/2016 SUBJECTIVE: The patient is scheduled for hemodialysis today. No other acute events noted. OBJECTIVE: VITAL SIGNS: Blood pressure is 132/60, respirations 20, pulse 82, temperature 98.3. HEENT: Head is normocephalic. NECK: Supple. HEART: Regular rate. LUNGS: Show diminished breath sounds at base. ABDOMEN: Soft, nontender to palpation without rebound or guarding. EXTREMITIES: Negative for clubbing, cyanosis, no edema. DERMATOLOGIC: No rashes. MUSCULOSKELETAL: No joint effusions. NEUROLOGIC: No change in exam. MEDICATIONS: The patient's medications have been reviewed. LABORATORY DATA: Shows sodium 130, potassium 4.6, chloride 91, BUN 7, creatinine . White coun t 6.6, hemoglobin 9.4, hematocrit , platelet count is 358. ASSESSMENT AND PLAN: 1. End-stage renal disease. Plan for dialysis today for 3 hours, 2K bath, calcium 2.5. Will antic ipate dialysis tomorrow. 2. Anemia. Continue to monitor hemoglobin and hematocrit levels. Continue Epogen. 3. Mineral bone disorder. Continue to monitor calcium and phosphorus levels. 4. Hypertension. Continue current blood pressure regimen. Continue ultrafiltration. 5. Hyponatremia, improved. 6. Chronic respiratory failure, status post trach. Continue current treatment plan. 7. Diabetes. Continue current insulin regimen. 8. Chronic encephalopathy. No change. 9. Seizure disorder. Continue medical management. 10. Status post sepsis. 11. History of intracranial bleed. Dictated By: MARYURI WALLER/FRANCES Conf#: [id number] DID#: [id number]
[2016-10-16] MEDS: AMLODIPINE 5 MG TAB GTB SCH (11:29)
[2016-10-16] MEDS: LEVETIRACETAM (100 MG/ML) 5ML CUP GTB SCH ×2 (11:29→20:57)
[2016-10-16] MEDS: MULTIVIT/CA CARB/B CMPLX/FA TAB GTB SCH (11:29)
[2016-10-16] MEDS: FOLIC ACID 1 MG TAB GTB SCH (11:29)
[2016-10-16] MEDS: SENNA TAB GTB SCH (11:29)
[2016-10-16] MEDS: METOPROLOL 25 MG TAB GTB SCH ×2 (11:30→20:57)
--- NOTE | 2016-10-16 16:40 | PN ---
Date/Time of Note Date/Time of Note DATE: 10/16/16 TIME: 16:39 Assessment/Plan VTE Prophylaxis VTE Prophylaxis Intervention: SCD's Lines/Catheters [facility]from [facility] Saline Lock Urinary Cath still in place: No Assessment/Plan Chief Complaint/Hosp Course No acute events overnight, patient looks comfortable. Assessment/Plan - End-stage renal disease on hemodialysis. Continue hemodialysis per nephrology. Dr. Sales is following in nephrology consultation. - Hypertension. Continue metoprolol and hydralazine. - Anemia of chronic disease, transfuse as needed, continue Epogen. - S/p acute on chronic encephalopathy. - History of nontraumatic intracranial bleed, status post craniotomy. - Chronic respiratory failure with tracheostomy. - Possible seizure disorder. Continue Keppra. - Diabetes mellitus. Continue Levemir and NovoLog per mild algorithm sliding scale. - S/p sepsis - S/p HCAP. Further recommendations based on clinical course. Plan of care discussed with Dr. Godinez. Problems: Exam/Review of Systems Vital Signs Vitals Vital Signs Date Time Temp Pulse Resp B/P Pulse Ox O2 Delivery O2 Flow Rate FiO2 10/16/16 14:50 91 138/63 10/16/16 13:15 20 100 Aerosol 5.0 28 T Tube 10/16/16 07:26 98.3 Intake and Output 10/15/16 10/15/16 10/16/16 15:00 23:00 07:00 Intake Total 720 ml 0 ml Balance 720 ml 0 ml Exam Constitutional: Awake Neck: other (Tracheostomy), supple Respiratory: slightly diminished at the bases breath sounds, Cardiovascular: S1S2 Gastrointestinal: non-tender, other (G-tube), soft Extremities: normal pulses Neurological: confused Additional Comments Right chest permacath Results Result Diagram: 10/16/16 0530 10/16/16 0530 Results 24 hrs Laboratory Tests Test 10/16/16 05:30 White Blood Count 6.6 Red Blood Count 3.16 L Hemoglobin 9.4 L Hematocrit 28.8 L Mean Corpuscular Volume 91.1 Mean Corpuscular Hemoglobin 29.7 Mean Corpuscular Hemoglobin Concent 32.6 Red Cell Distribution Width 15.2 H Platelet Count 358 Mean Platelet Volume 9.6 Neutrophils % 77.0 Lymphocytes % 12.3 L Monocytes % 7.3 Eosinophils % 2.6 Basophils % 0.3 Nucleated Red Blood Cells % 0.0 Neutrophils # 5.1 Lymphocytes # 0.8 Monocytes # 0.5 Eosinophils # 0.2 Basophils # 0.0 Nucleated Red Blood Cells # 0.0 Sodium Level 130 L Potassium Level 4.6 Chloride Level 91 L Carbon Dioxide Level 26 Anion Gap 18 H Blood Urea Nitrogen 107 H Creatinine 6.11 H Glucose Level 93 Calcium Level 10.9 H Medications Medications Current Medications Amlodipine Besylate (Norvasc) 5 mg DAILY GTB Last administered on 10/15/16 08: 29; Admin Dose 5 MG; Start 08/30/16 at 09:00 Clonidine (Catapres) 0.1 mg DAILY PRN GTB ELEVATED SYSTOLIC BP; Start 08/29/16 at 23:00 Doxazosin Mesylate (Cardura) 2 mg QHS GTB Last administered on 10/15/16 20:55 ; Admin Dose 2 MG; Start 08/30/16 at 21:00 Folic Acid (Folic Acid) 1 mg DAILY GTB Last administered on 10/16/16 11:29; Admin Dose 1 MG; Start 08/30/16 at 09:00 Hydralazine HCl (Apresoline) 50 mg Q8 GTB Last administered on 10/16/16 14:53 ; Admin Dose 50 MG; Start 08/30/16 at 06:00 Levetiracetam (Keppra Liquid) 500 mg BID GTB Last administered on 10/16/16 11: 29; Admin Dose 500 MG; Start 08/30/16 at 09:00 Metoprolol Tartrate (Lopressor) 25 mg BID GTB Last administered on 10/15/16 20 :55; Admin Dose 25 MG; Start 08/30/16 at 09:00 Multivit/Ca Carb/ B Cmplx/FA/Prenat (Leah-Juan Jose) 1 tab DAILY GTB Last administered on 10/16/16 11:29; Admin Dose 1 TAB; Start 08/30/16 at 09:00 Ondansetron HCl (Zofran Tab) 4 mg Q6H PRN GTB NAUSEA AND/OR VOMITING; Start at 23:00 Senna (Senokot) 1 tab DAILY GTB Last administered on 10/16/16 11:29; Admin Dose 1 TAB; Start 08/30/16 at 09:00 Zolpidem Tartrate (Ambien) 5 mg QHS PRN GTB INSOMNIA; Start 08/29/16 at 23:00 Lansoprazole (Prevacid) 30 mg DAILY@06 GTB Last administered on 10/16/16 05:35 ; Admin Dose 30 MG; Start 08/30/16 at 06:00 Acetaminophen (Tylenol Liquid) 650 mg Q4H PRN GTB PAIN AND OR ELEVATED TEMP Last administered on 10/02/16 05:42; Admin Dose 650 MG; Start 08/29/16 at 23:00 Miscellaneous Information 1 ea NOTE XX ; Start 08/31/16 at 07:00 Glucose (Glutose) 15 gm Q15M PRN PO DECREASED GLUCOSE; Start 08/31/16 at 07:00 Glucose (Glutose) 22.5 gm Q15M PRN PO DECREASED GLUCOSE; Start 08/31/16 at 07: 00 Dextrose (D50w Syringe) 25 ml Q15M PRN IV DECREASED GLUCOSE Last administered on 10/01/16 06:28; Admin Dose 25 ML; Start 08/31/16 at 07:00 Dextrose (D50w Syringe) 50 ml Q15M PRN IV DECREASED GLUCOSE; Start 08/31/16 at 07:00 Glucagon (Glucagen) 1 mg Q15M PRN IM DECREASED GLUCOSE; Start 08/31/16 at 07:00 Glucose (Glutose) 15 gm Q15M PRN BUCCAL DECREASED GLUCOSE; Start 08/31/16 at 07 :00 NOELLE JIMENEZ Oct 16, 2016 16:40
[2016-10-16] MEDS: DOXAZOSIN 2 MG TAB GTB SCH (20:58)
[2016-10-16] MEDS: EPOETIN 10000 UNITS/1 ML INJ (ESRD) SC SCH (23:15)
[2016-10-17] VITALS (11 sets, daily range): BP systolic 107–156; BP diastolic 56–79; PULSE 73–83; RESP 18
[2016-10-17] MEDS: LANSOPRAZOLE 30 MG CAP GTB SCH (05:53)
[2016-10-17] MEDS: LEVALBUTEROL (NEB) 0.63 MG/3 ML AMP NEB SCH ×4 (08:00→19:05)
[2016-10-17] MEDS: LEVETIRACETAM (100 MG/ML) 5ML CUP GTB SCH ×2 (08:51→21:25)
[2016-10-17] MEDS: AMLODIPINE 5 MG TAB GTB SCH (08:51)
[2016-10-17] MEDS: FOLIC ACID 1 MG TAB GTB SCH (08:51)
[2016-10-17] MEDS: SENNA TAB GTB SCH (08:51)
[2016-10-17] MEDS: MULTIVIT/CA CARB/B CMPLX/FA TAB GTB SCH (08:51)
[2016-10-17] MEDS: SEVELAMER CARBONATE 0.8 GM PKT GTB SCH ×3 (08:52→18:15)
[2016-10-17] MEDS: METOPROLOL 25 MG TAB GTB SCH ×2 (08:52→21:26)
--- NOTE | 2016-10-17 12:15 | PN ---
Date/Time of Note Date/Time of Note DATE: 10/17/16 TIME: 12:13 Assessment/Plan VTE Prophylaxis VTE Prophylaxis Intervention: SCD's Lines/Catheters IV Catheter Type (from [facility]): Sal[facility] Urinary Cath still in place: No Assessment/Plan Chief Complaint/Hosp Course Patient remains hemodynamically stable, tolerates G-tube feeding well per RN. Discussed with case management no [facility] facility bed available. Assessment/Plan - S/p sepsis - S/p HCAP. - End-stage renal disease on hemodialysis. Continue hemodialysis per nephrology. Dr. Sales is following in nephrology consultation. - Hypertension. Continue metoprolol and hydralazine. - Diabetes mellitus. Continue Levemir and NovoLog per mild algorithm sliding scale. - Anemia of chronic disease, no indication for transfusion, continue Epogen. - S/p acute on chronic encephalopathy. - History of nontraumatic intracranial bleed, status post craniotomy. - Chronic respiratory failure with tracheostomy. - Possible seizure disorder. Continue Keppra. Further recommendations based on clinical course. Plan of care discussed with Dr. Godinez. Problems: Exam/Review of Systems Vital Signs Vitals Vital Signs Date Time Temp Pulse Resp B/P Pulse Ox O2 Delivery O2 Flow Rate FiO2 10/17/16 08:05 82 18 98 Aerosol 5.0 28 10/17/16 07:41 97.7 108/62 Intake and Output 10/16/16 10/16/16 10/17/16 15:00 23:00 07:00 Intake Total 500 ml 680 ml Output Total 3000 ml Balance -2500 ml 680 ml Exam Constitutional: Awake Neck: other (Tracheostomy), supple Respiratory: slightly diminished at the bases breath sounds, Cardiovascular: Nl pulse Gastrointestinal: non-tender, other (G-tube), soft Extremities: normal pulses Neurological: confused Additional Comments Right chest permacath Results Result Diagram: 10/16/1652910/16/16529 Medications Medications Current Medications Amlodipine Besylate (Norvasc) 5 mg DAILY GTB Last administered on 10/17/16t 08: 51; Admin Dose 5 MG; Start 08/30/16 at 09:00 Clonidine (Catapres) 0.1 mg DAILY PRN GTB ELEVATED SYSTOLIC BP; Start 08/29/16 at 23:00 Doxazosin Mesylate (Cardura) 2 mg QHS GTB Last administered on 10/16/16 20:58 ; Admin Dose 2 MG; Start 08/30/16 at 21:00 Folic Acid (Folic Acid) 1 mg DAILY GTB Last administered on 10/17/16 08:51; Admin Dose 1 MG; Start 08/30/16 at 09:00 Hydralazine HCl (Apresoline) 50 mg Q8 GTB Last administered on 10/17/16 05:54 ; Admin Dose 50 MG; Start 08/30/16 at 06:00 Levetiracetam (Keppra Liquid) 500 mg BID GTB Last administered on 10/17/16 08: 51; Admin Dose 500 MG; Start 08/30/16 at 09:00 Metoprolol Tartrate (Lopressor) 25 mg BID GTB Last administered on 10/17/16 08 :52; Admin Dose 25 MG; Start 08/30/16 at 09:00 Multivit/Ca Carb/ B Cmplx/FA/Prenat (Leah-Juan Jose) 1 tab DAILY GTB Last administered on 10/17/16 08:51; Admin Dose 1 TAB; Start 08/30/16 at 09:00 Ondansetron HCl (Zofran Tab) 4 mg Q6H PRN GTB NAUSEA AND/OR VOMITING; Start at 23:00 Senna (Senokot) 1 tab DAILY GTB Last administered on 10/17/16 08:51; Admin Dose 1 TAB; Start 08/30/16 at 09:00 Zolpidem Tartrate (Ambien) 5 mg QHS PRN GTB INSOMNIA; Start 08/29/16 at 23:00 Lansoprazole (Prevacid) 30 mg DAILY@06 GTB Last administered on 10/17/16 05:53 ; Admin Dose 30 MG; Start 08/30/16 at 06:00 Acetaminophen (Tylenol Liquid) 650 mg Q4H PRN GTB PAIN AND OR ELEVATED TEMP Last administered on 10/02/16 05:42; Admin Dose 650 MG; Start 08/29/16 at 23:00 Miscellaneous Information 1 ea NOTE XX ; Start 08/31/16 at 07:00 Glucose (Glutose) 15 gm Q15M PRN PO DECREASED GLUCOSE; Start 08/31/16 at 07:00 Glucose (Glutose) 22.5 gm Q15M PRN PO DECREASED GLUCOSE; Start 08/31/16 at 07: 00 Dextrose (D50w Syringe) 25 ml Q15M PRN IV DECREASED GLUCOSE Last administered on 10/01/16 06:28; Admin Dose 25 ML; Start 08/31/16 at 07:00 Dextrose (D50w Syringe) 50 ml Q15M PRN IV DECREASED GLUCOSE; Start 08/31/16 at 07:00 Glucagon (Glucagen) 1 mg Q15M PRN IM DECREASED GLUCOSE; Start 08/31/16 at 07:00 Glucose (Glutose) 15 gm Q15M PRN BUCCAL DECREASED GLUCOSE; Start 08/31/16 at 07 :00 NOELLE JIMENEZ Oct 17, 2016 12:15
--- NOTE | 2016-10-17 18:52 | PN ---
DATE: 10/17/2016 SUBJECTIVE: The patient is stable, no acute events overnight. No fevers, chills, nausea, vomiting. The patient is scheduled for hemodialysis today. OBJECTIVE: VITAL SIGNS: Blood pressure is 108/62, pulse 81, respirations 20, temperature 97.7. HEENT: Head is normocephalic. NECK: Supple. HEART: Regular rate. LUNGS: Show diminished breath sounds at the bases. ABDOMEN: Soft, nontender to palpation. No rebound or guarding. EXTREMITIES: Negative for clubbing, cyanosis. No edema. DERMATOLOGIC: No rashes. MUSCULOSKELETAL: No joint effusions. NEUROLOGIC: No change in exam. MEDICATIONS: The patient's medications have been reviewed. LABORATORY DATA: Has been reviewed. ASSESSMENT AND PLAN: 1. End-stage renal disease. Plan for dialysis today for 3 hours, 3 K bath, calcium 2.5. Ultrafilt rate as tolerated. 2. Anemia. Continue to monitor hemoglobin and hematocrit levels. Continue Epogen. 3. Mineral bone disorder. Continue to monitor calcium and phosphorus levels. 4. Hypertension. Continue current blood pressure regimen. 5. Hyponatremia. Continue dialysis with 140 sodium bath. 6. Chronic respiratory failure, status post tracheostomy. Continue current treatment plan. 7. Diabetes. Continue Accu-Cheks and insulin sliding scale. 8. Chronic encephalopathy. No change. 9. Seizure disorder. Continue current medical management. 10. History of intracranial bleed. 11. Status post sepsis. Dictated By: MARYURI WALLER/FRANCES Conf#: [id number] DID#: [id number]
[2016-10-17] MEDS: DOXAZOSIN 2 MG TAB GTB SCH (21:26)
[2016-10-18 06:02] LABS: ADD SCAN DIFF NO
[2016-10-18 06:12] LABS: BASOPHILS % 0.7 % (0.0-2.0); EOSINOPHILS # 0.2 10^3/ul (0.0-0.5); EOSINOPHILS % 4.5 % (0.0-7.0); HEMATOCRIT 30.5 % (42.0-52.0); HEMOGLOBIN 9.6 g/dl (14.0-18.0); LYMPHOCYTES # 0.7 10^3/ul (0.8-2.9); LYMPHOCYTES % 14.7 % (15.0-51.0); MEAN CORPUSCULAR HEMOGLOBIN 29.5 pg (29.0-33.0); MEAN CORPUSCULAR HGB CONC 31.5 g/dl (32.0-37.0); MEAN CORPUSCULAR VOLUME 93.8 fl (82.0-101.0); MEAN PLATELET VOLUME 9.8 fl (7.4-10.4); MONOCYTE # 0.5 10^3/ul (0.3-0.9); MONOCYTES % 11.6 % (0.0-11.0); NEUTROPHILS % 67.8 % (39.0-77.0); PLATELET COUNT 395 10^3/UL (140-415); RED BLOOD COUNT 3.25 10^6/ul (4.70-6.10); RED CELL DISTRIBUTION WIDTH 15.9 % (11.5-14.5); WHITE BLOOD COUNT 4.5 10^3/ul (4.8-10.8)
[2016-10-18] MEDS: LANSOPRAZOLE 30 MG CAP GTB SCH (06:12)
[2016-10-18 06:29] LABS: CREATININE 2.73 mg/dl (0.61-1.24); POTASSIUM 3.9 mmol/L (3.5-5.1)
[2016-10-18 07:44] VITALS: BP 141/63; RESP 22
[2016-10-18] MEDS: LEVALBUTEROL (NEB) 0.63 MG/3 ML AMP NEB SCH ×4 (07:56→20:00)
[2016-10-18] MEDS: MULTIVIT/CA CARB/B CMPLX/FA TAB GTB SCH (09:29)
[2016-10-18] MEDS: LEVETIRACETAM (100 MG/ML) 5ML CUP GTB SCH ×2 (09:29→21:45)
[2016-10-18] MEDS: SEVELAMER CARBONATE 0.8 GM PKT GTB SCH ×3 (09:29→21:45)
[2016-10-18] MEDS: FOLIC ACID 1 MG TAB GTB SCH (09:30)
[2016-10-18] MEDS: SENNA TAB GTB SCH (09:30)
[2016-10-18] MEDS: METOPROLOL 25 MG TAB GTB SCH ×2 (09:30→21:46)
[2016-10-18] MEDS: AMLODIPINE 5 MG TAB GTB SCH (09:30)
--- NOTE | 2016-10-18 10:10 | PN ---
DATE: 10/18/2016 SUBJECTIVE: The patient is stable. Had hemodialysis yesterday, tolerated it well. OBJECTIVE: VITAL SIGNS: Blood pressure 141/62, respirations 22, pulse 80, temperature 97.8. HEENT: Head is normocephalic. NECK: Supple. HEART: Regular rate. LUNGS: Show diminished breath sounds at the bases. ABDOMEN: Soft, nontender to palpation. No rebound or guarding. EXTREMITIES: Negative for clubbing, cyanosis. No edema. DERMATOLOGIC: No rashes. MUSCULOSKELETAL: No joint effusions. NEUROLOGIC: No change in exam. MEDICATIONS: The patient's medications are reviewed. LABORATORY DATA: Shows sodium 139, potassium .9, BUN 39, creatinine 2.73. White count 4.5, he moglobin 9.6, hematocrit 30.5, platelet count is 395. ASSESSMENT AND PLAN: 1. End-stage renal disease. The patient had hemodialysis yesterday, tolerated it well. Plan for d ialysis tomorrow. 2. Anemia. Continue to monitor hemoglobin and hematocrit levels. Continue Epogen. 3. Mineral bone disorder. Continue to monitor calcium and phosphorus levels. 4. Hypertension. Continue current blood pressure regimen. 5. Hyponatremia. Continue dialysis on a 140 sodium bath. 6. Chronic respiratory failure, status post tracheostomy. Continue medical management. 7. Diabetes. Continue Accu-Cheks and insulin sliding scale. 8. Chronic encephalopathy. No change. 9. Seizure disorder. Continue medical management. 10. Status post sepsis. 11. History of intracranial bleed. Dictated By: MARYURI WALLER/FRANCES Conf#: [id number] DID#: [id number]
--- NOTE | 2016-10-18 10:59 | PN ---
Date/Time of Note Date/Time of Note DATE: 10/18/16 TIME: 10:57 Assessment/Plan VTE Prophylaxis VTE Prophylaxis Intervention: other Lines/Catheters [facility] Saline Lock Urinary Cath still in place: No Assessment/Plan Assessment/Plan - S/p sepsis - S/p HCAP. - End-stage renal disease on hemodialysis. Continue hemodialysis per nephrology. Dr. Sales is following in nephrology consultation. - Hypertension. Continue metoprolol and hydralazine. - Diabetes mellitus. Continue Levemir and NovoLog per mild algorithm sliding scale. - Anemia of chronic disease, no indication for transfusion, continue Epogen. - S/p acute on chronic encephalopathy. - History of nontraumatic intracranial bleed, status post craniotomy. - Chronic respiratory failure with tracheostomy. - Possible seizure disorder. Continue Keppra. Further recommendations based on clinical course. Awaiting placement. Plan of care discussed with Dr. Godinez. Subjective 24 Hr Interval Summary Constitutional: improved, requiring O2 Exam/Review of Systems Vital Signs Vitals Vital Signs Date Time Temp Pulse Resp B/P Pulse Ox O2 Delivery O2 Flow Rate FiO2 10/18/16 07:56 79 18 98 Aerosol 5.0 28 10/18/16 07:44 97.7 141/63 Intake and Output 10/17/16 10/17/16 10/18/16 15:00 23:00 07:00 Intake Total 1145 ml 760 ml Output Total 2700 ml Balance -1555 ml 760 ml Exam Constitutional: alert, non-verbal, well developed Respiratory: clear to auscultation, normal air movement Cardiovascular: nl pulses, regular rate and rhythm Gastrointestinal: non-tender, other, soft Musculoskeletal: muscle weakness Extremities: normal pulses Neurological: nl mental status, nl speech Results Result Diagram: 10/18/16 0509 10/18/16 0509 Results 24 hrs Laboratory Tests Test 10/18/16 05:09 White Blood Count 4.5 #L Red Blood Count 3.25 L Hemoglobin 9.6 L Hematocrit 30.5 L Mean Corpuscular Volume 93.8 Mean Corpuscular Hemoglobin 29.5 Mean Corpuscular Hemoglobin Concent 31.5 L Red Cell Distribution Width 15.9 H Platelet Count 395 Mean Platelet Volume 9.8 Neutrophils % 67.8 Lymphocytes % 14.7 L Monocytes % 11.6 H Eosinophils % 4.5 Basophils % 0.7 Nucleated Red Blood Cells % 0.0 Neutrophils # 3.0 Lymphocytes # 0.7 L Monocytes # 0.5 Eosinophils # 0.2 Basophils # 0.0 Nucleated Red Blood Cells # 0.0 Sodium Level 139 Potassium Level 3.9 Chloride Level 100 Carbon Dioxide Level 32 H Anion Gap 11 # Blood Urea Nitrogen 39 #H Creatinine 2.73 #H Glucose Level 107 Calcium Level 10.0 Medications Medications Current Medications Amlodipine Besylate (Norvasc) 5 mg DAILY GTB Last administered on 10/18/16 09: 30; Admin Dose 5 MG; Start 08/30/16 at 09:00 Clonidine (Catapres) 0.1 mg DAILY PRN GTB ELEVATED SYSTOLIC BP; Start 08/29/16 at 23:00 Doxazosin Mesylate (Cardura) 2 mg QHS GTB Last administered on 10/17/16 21:26 ; Admin Dose 2 MG; Start 08/30/16 at 21:00 Folic Acid (Folic Acid) 1 mg DAILY GTB Last administered on 10/18/16 09:30; Admin Dose 1 MG; Start 08/30/16 at 09:00 Hydralazine HCl (Apresoline) 50 mg Q8 GTB Last administered on 10/18/16 06:11 ; Admin Dose 50 MG; Start 08/30/16 at 06:00 Levetiracetam (Keppra Liquid) 500 mg BID GTB Last administered on 10/18/16 09: 29; Admin Dose 500 MG; Start 08/30/16 at 09:00 Metoprolol Tartrate (Lopressor) 25 mg BID GTB Last administered on 10/18/16 09 :30; Admin Dose 25 MG; Start 08/30/16 at 09:00 Multivit/Ca Carb/ B Cmplx/FA/Prenat (Leah-Juan Jose) 1 tab DAILY GTB Last administered on 10/18/16 09:29; Admin Dose 1 TAB; Start 08/30/16 at 09:00 Ondansetron HCl (Zofran Tab) 4 mg Q6H PRN GTB NAUSEA AND/OR VOMITING; Start at 23:00 Senna (Senokot) 1 tab DAILY GTB Last administered on 10/18/16 09:30; Admin Dose 1 TAB; Start 08/30/16 at 09:00 Zolpidem Tartrate (Ambien) 5 mg QHS PRN GTB INSOMNIA; Start 08/29/16 at 23:00 Lansoprazole (Prevacid) 30 mg DAILY@06 GTB Last administered on 10/18/16 06:12 ; Admin Dose 30 MG; Start 08/30/16 at 06:00 Acetaminophen (Tylenol Liquid) 650 mg Q4H PRN GTB PAIN AND OR ELEVATED TEMP Last administered on 10/02/16 05:42; Admin Dose 650 MG; Start 08/29/16 at 23:00 Miscellaneous Information 1 ea NOTE XX ; Start 08/31/16 at 07:00 Glucose (Glutose) 15 gm Q15M PRN PO DECREASED GLUCOSE; Start 08/31/16 at 07:00 Glucose (Glutose) 22.5 gm Q15M PRN PO DECREASED GLUCOSE; Start 08/31/16 at 07: 00 Dextrose (D50w Syringe) 25 ml Q15M PRN IV DECREASED GLUCOSE Last administered on 10/01/16 06:28; Admin Dose 25 ML; Start 08/31/16 at 07:00 Dextrose (D50w Syringe) 50 ml Q15M PRN IV DECREASED GLUCOSE; Start 08/31/16 at 07:00 Glucagon (Glucagen) 1 mg Q15M PRN IM DECREASED GLUCOSE; Start 08/31/16 at 07:00 Glucose (Glutose) 15 gm Q15M PRN BUCCAL DECREASED GLUCOSE; Start 08/31/16 at 07 :00 CANDY JUAREZ Oct 18, 2016 10:59
[2016-10-18 20:00] VITALS: BP 130/59; RESP 18
[2016-10-18] MEDS: DOXAZOSIN 2 MG TAB GTB SCH (21:46)
[2016-10-19] VITALS (11 sets, daily range): BP systolic 113–171; BP diastolic 59–73; PULSE 73–86; RESP 20
[2016-10-19 06:00] LABS: ADD SCAN DIFF NO
[2016-10-19] MEDS: LANSOPRAZOLE 30 MG CAP GTB SCH (06:18)
[2016-10-19 06:19] LABS: BASOPHILS % 0.6 % (0.0-2.0); EOSINOPHILS # 0.2 10^3/ul (0.0-0.5); EOSINOPHILS % 3.9 % (0.0-7.0); HEMATOCRIT 30.5 % (42.0-52.0); HEMOGLOBIN 9.8 g/dl (14.0-18.0); LYMPHOCYTES # 0.8 10^3/ul (0.8-2.9); LYMPHOCYTES % 16.4 % (15.0-51.0); MEAN CORPUSCULAR HEMOGLOBIN 29.6 pg (29.0-33.0); MEAN CORPUSCULAR HGB CONC 32.1 g/dl (32.0-37.0); MEAN CORPUSCULAR VOLUME 92.1 fl (82.0-101.0); MEAN PLATELET VOLUME 9.7 fl (7.4-10.4); MONOCYTE # 0.5 10^3/ul (0.3-0.9); MONOCYTES % 9.7 % (0.0-11.0); NEUTROPHIL # 3.4 10^3/ul (1.6-7.5); PLATELET COUNT 441 10^3/UL (140-415); RED BLOOD COUNT 3.31 10^6/ul (4.70-6.10); RED CELL DISTRIBUTION WIDTH 15.6 % (11.5-14.5); WHITE BLOOD COUNT 4.9 10^3/ul (4.8-10.8)
[2016-10-19 06:52] LABS: CALCIUM 10.4 mg/dl (8.4-10.2); CREATININE 3.68 mg/dl (0.61-1.24)
[2016-10-19] MEDS: LEVALBUTEROL (NEB) 0.63 MG/3 ML AMP NEB SCH ×4 (08:00→19:33)
[2016-10-19] MEDS: SEVELAMER CARBONATE 0.8 GM PKT GTB SCH ×3 (09:49→17:53)
[2016-10-19] MEDS: LEVETIRACETAM (100 MG/ML) 5ML CUP GTB SCH ×2 (09:49→21:29)
[2016-10-19] MEDS: METOPROLOL 25 MG TAB GTB SCH ×2 (09:49→21:30)
[2016-10-19] MEDS: AMLODIPINE 5 MG TAB GTB SCH (09:49)
[2016-10-19] MEDS: MULTIVIT/CA CARB/B CMPLX/FA TAB GTB SCH (09:49)
[2016-10-19] MEDS: FOLIC ACID 1 MG TAB GTB SCH (09:49)
[2016-10-19] MEDS: SENNA TAB GTB SCH (09:49)
--- NOTE | 2016-10-19 09:54 | PN ---
DATE: 10/19/2016 SUBJECTIVE: The patient is stable, no acute events overnight. No fevers, chills, nausea, vomiting. No shortness of breath. OBJECTIVE: VITAL SIGNS: Blood pressure 171/72, respirations 20, pulse 76, temperature 98.0. HEENT: Head is normocephalic. NECK: Supple. HEART: Regular rate. LUNGS: Show diminished breath sounds at the bases. ABDOMEN: Soft, nontender to palpation. No rebound or guarding. EXTREMITIES: Negative for clubbing, cyanosis. No edema. DERMATOLOGIC: No rashes. MUSCULOSKELETAL: No joint effusions. NEUROLOGIC: No change in exam. MEDICATIONS: The patient's medications have been reviewed. LABORATORY DATA: Shows sodium 135, potassium 4.0, chloride 96, BUN 63, creatinine 3.68. White coun t 4.9, hemoglobin 9.8, hematocrit 30.5, platelet count is 441. ASSESSMENT AND PLAN: 1. End-stage renal disease. The patient is scheduled for dialysis today. We will dialyze for 3 ho urs, 3 K bath, calcium 2.5. 3. Anemia. Continue to monitor hemoglobin and hematocrit levels. Continue Epogen. 4. Mineral bone disorder. Continue to monitor calcium and phosphorus levels. 5. Hypertension. Continue current blood pressure regimen. 6. Hyponatremia, currently stable. Continue dialysis with 140 sodium bath. 7. Chronic respiratory failure, status post tracheostomy. Continue medical management. 8. Diabetes. Continue Accu-Cheks and insulin sliding scale. 9. Chronic encephalopathy. No change. 10. Seizure disorder. Continue medical management. 11. Status post sepsis. 12. History of intracranial bleed. Dictated By: MARYURI WALLER/FRANCES Conf#: [id number] DID#: [id number]
--- NOTE | 2016-10-19 17:47 | PN ---
Date/Time of Note Date/Time of Note DATE: 10/19/16 TIME: 17:46 Assessment/Plan VTE Prophylaxis VTE Prophylaxis Intervention: SCD's Lines/Catheters IV C[facility]ter Type (from [facility] Saline Lock Urinary Cath still in place: No Assessment/Plan Chief Complaint/Hosp Course Patient is currently undergoing hemodialysis, no acute events per RN. Assessment/Plan - S/p sepsis - S/p HCAP. - End-stage renal disease on hemodialysis. Continue hemodialysis per nephrology. Dr. Sales is following in nephrology consultation. - Hypertension. Continue metoprolol and hydralazine. - Diabetes mellitus. Continue Levemir and NovoLog per mild algorithm sliding scale. - Anemia of chronic disease, no indication for transfusion, continue Epogen. - S/p acute on chronic encephalopathy. - History of nontraumatic intracranial bleed, status post craniotomy. - Chronic respiratory failure with tracheostomy. - Possible seizure disorder. Continue Keppra. Further recommendations based on clinical course. Plan of care discussed with Dr. Godinez. Problems: Exam/Review of Systems Vital Signs Vitals Vital Signs Date Time Temp Pulse Resp B/P Pulse Ox O2 Delivery O2 Flow Rate FiO2 10/19/16 17:41 86 16 10/19/16 12:37 5.0 28 10/19/16 12:34 98 Aerosol T Tube 10/19/16 08:21 98.0 171/72 Intake and Output 10/18/16 10/18/16 10/19/16 15:00 23:00 07:00 Intake Total 780 ml Balance 780 ml Exam Constitutional: Awake Neck: other (Tracheostomy), supple Respiratory: slightly diminished at the bases breath sounds, Cardiovascular: Nl pulse Gastrointestinal: non-tender, other (G-tube), soft Extremities: normal pulses Neurological: confused Additional Comments Right chest permacath Results Result Diagram: 10/19/16 0517 10/19/16 0517 Results 24 hrs Laboratory Tests Test 10/19/16 05:17 White Blood Count 4.9 Red Blood Count 3.31 L Hemoglobin 9.8 L Hematocrit 30.5 L Mean Corpuscular Volume 92.1 Mean Corpuscular Hemoglobin 29.6 Mean Corpuscular Hemoglobin Concent 32.1 Red Cell Distribution Width 15.6 H Platelet Count 441 H Mean Platelet Volume 9.7 Neutrophils % 69.0 Lymphocytes % 16.4 Monocytes % 9.7 Eosinophils % 3.9 Basophils % 0.6 Nucleated Red Blood Cells % 0.0 Neutrophils # 3.4 Lymphocytes # 0.8 Monocytes # 0.5 Eosinophils # 0.2 Basophils # 0.0 Nucleated Red Blood Cells # 0.0 Sodium Level 135 Potassium Level 4.0 Chloride Level 96 L Carbon Dioxide Level 30 Anion Gap 13 Blood Urea Nitrogen 63 H Creatinine 3.68 H Glucose Level 107 Calcium Level 10.4 H Medications Medications Current Medications Amlodipine Besylate (Norvasc) 5 mg DAILY GTB Last administered on 10/19/16 09: 49; Admin Dose 5 MG; Start 08/30/16 at 09:00 Clonidine (Catapres) 0.1 mg DAILY PRN GTB ELEVATED SYSTOLIC BP; Start 08/29/16 at 23:00 Doxazosin Mesylate (Cardura) 2 mg QHS GTB Last administered on 10/18/16 21:46 ; Admin Dose 2 MG; Start 08/30/16 at 21:00 Folic Acid (Folic Acid) 1 mg DAILY GTB Last administered on 10/19/16 09:49; Admin Dose 1 MG; Start 08/30/16 at 09:00 Hydralazine HCl (Apresoline) 50 mg Q8 GTB Last administered on 10/19/16 13:38 ; Admin Dose 50 MG; Start 08/30/16 at 06:00 Levetiracetam (Keppra Liquid) 500 mg BID GTB Last administered on 10/19/16 09: 49; Admin Dose 500 MG; Start 08/30/16 at 09:00 Metoprolol Tartrate (Lopressor) 25 mg BID GTB Last administered on 10/19/16 09 :49; Admin Dose 25 MG; Start 08/30/16 at 09:00 Multivit/Ca Carb/ B Cmplx/FA/Prenat (Leah-Juan Jose) 1 tab DAILY GTB Last administered on 10/19/16 09:49; Admin Dose 1 TAB; Start 08/30/16 at 09:00 Ondansetron HCl (Zofran Tab) 4 mg Q6H PRN GTB NAUSEA AND/OR VOMITING; Start at 23:00 Senna (Senokot) 1 tab DAILY GTB Last administered on 10/19/16 09:49; Admin Dose 1 TAB; Start 08/30/16 at 09:00 Zolpidem Tartrate (Ambien) 5 mg QHS PRN GTB INSOMNIA; Start 08/29/16 at 23:00 Lansoprazole (Prevacid) 30 mg DAILY@06 GTB Last administered on 10/19/16 06:18 ; Admin Dose 30 MG; Start 08/30/16 at 06:00 Acetaminophen (Tylenol Liquid) 650 mg Q4H PRN GTB PAIN AND OR ELEVATED TEMP Last administered on 10/02/16 05:42; Admin Dose 650 MG; Start 08/29/16 at 23:00 Miscellaneous Information 1 ea NOTE XX ; Start 08/31/16 at 07:00 Glucose (Glutose) 15 gm Q15M PRN PO DECREASED GLUCOSE; Start 08/31/16 at 07:00 Glucose (Glutose) 22.5 gm Q15M PRN PO DECREASED GLUCOSE; Start 08/31/16 at 07: 00 Dextrose (D50w Syringe) 25 ml Q15M PRN IV DECREASED GLUCOSE Last administered on 10/01/16 06:28; Admin Dose 25 ML; Start 08/31/16 at 07:00 Dextrose (D50w Syringe) 50 ml Q15M PRN IV DECREASED GLUCOSE; Start 08/31/16 at 07:00 Glucagon (Glucagen) 1 mg Q15M PRN IM DECREASED GLUCOSE; Start 08/31/16 at 07:00 Glucose (Glutose) 15 gm Q15M PRN BUCCAL DECREASED GLUCOSE; Start 08/31/16 at 07 :00 NOELLE JIMENEZ Oct 19, 2016 17:47
[2016-10-19] MEDS: EPOETIN 10000 UNITS/1 ML INJ (ESRD) SC SCH (17:54)
[2016-10-19] MEDS: DOXAZOSIN 2 MG TAB GTB SCH (21:30)
[2016-10-20] MEDS: LANSOPRAZOLE 30 MG CAP GTB SCH (05:46)
[2016-10-20] MEDS: LEVALBUTEROL (NEB) 0.63 MG/3 ML AMP NEB SCH ×4 (07:35→19:55)
[2016-10-20 08:13] VITALS: BP 153/67; RESP 18
[2016-10-20] MEDS: LEVETIRACETAM (100 MG/ML) 5ML CUP GTB SCH ×2 (09:33→20:26)
[2016-10-20] MEDS: SEVELAMER CARBONATE 0.8 GM PKT GTB SCH ×3 (09:33→18:16)
[2016-10-20] MEDS: SENNA TAB GTB SCH (09:33)
[2016-10-20] MEDS: MULTIVIT/CA CARB/B CMPLX/FA TAB GTB SCH (09:33)
[2016-10-20] MEDS: FOLIC ACID 1 MG TAB GTB SCH (09:35)
[2016-10-20] MEDS: METOPROLOL 25 MG TAB GTB SCH ×2 (09:36→20:27)
[2016-10-20] MEDS: AMLODIPINE 5 MG TAB GTB SCH (09:36)
--- NOTE | 2016-10-20 10:26 | CONS ---
Date/Time of Note Date/Time of Note DATE: 10/20/16 TIME: 10:25 Consult Date/Type/Reason Admit Date/Time Aug 29, 2016 at 16:21 Initial Consult Date 08/31/16 Type of Consultation: neph Ordering Provider: CANDY JUAREZ The patient is stable, no acute events overnight. No fevers, chills, nausea, vomiting. No shortness of breath. OBJECTIVE: HEENT: Head is normocephalic. NECK: Supple. HEART: Regular rate. LUNGS: Show diminished breath sounds at the bases. ABDOMEN: Soft, nontender to palpation. No rebound or guarding. EXTREMITIES: Negative for clubbing, cyanosis. No edema. DERMATOLOGIC: No rashes. MUSCULOSKELETAL: No joint effusions. NEUROLOGIC: No change in exam. MEDICATIONS: The patient's medications have been reviewed. Objective Vital Signs Date Time Temp Pulse Resp B/P Pulse Ox O2 Delivery O2 Flow Rate FiO2 10/20/16 08:13 98.3 83 18 153/67 97 10/20/16 07:37 Aerosol 5.0 28 T Tube Intake and Output 10/19/16 10/19/16 10/20/16 15:00 23:00 07:00 Intake Total 1130 ml 780 ml Output Total 2700 ml Balance -1570 ml 780 ml Results/Medications Result Diagram: 10/19/1651610/19/16516 Medications Current Medications Amlodipine Besylate (Norvasc) 5 mg DAILY GTB Last administered on 10/20/16 09: 36; Admin Dose 5 MG; Start 08/30/16 at 09:00 Clonidine (Catapres) 0.1 mg DAILY PRN GTB ELEVATED SYSTOLIC BP; Start 08/29/16 at 23:00 Doxazosin Mesylate (Cardura) 2 mg QHS GTB Last administered on 10/19/16 21:30 ; Admin Dose 2 MG; Start 08/30/16 at 21:00 Folic Acid (Folic Acid) 1 mg DAILY GTB Last administered on 10/20/16 09:35; Admin Dose 1 MG; Start 08/30/16 at 09:00 Hydralazine HCl (Apresoline) 50 mg Q8 GTB Last administered on 10/20/16 05:46 ; Admin Dose 50 MG; Start 08/30/16 at 06:00 Levetiracetam (Keppra Liquid) 500 mg BID GTB Last administered on 10/20/16 09: 33; Admin Dose 500 MG; Start 08/30/16 at 09:00 Metoprolol Tartrate (Lopressor) 25 mg BID GTB Last administered on 10/20/16 09 :36; Admin Dose 25 MG; Start 08/30/16 at 09:00 Multivit/Ca Carb/ B Cmplx/FA/Prenat (Leah-Juan Jose) 1 tab DAILY GTB Last administered on 10/20/16 09:33; Admin Dose 1 TAB; Start 08/30/16 at 09:00 Ondansetron HCl (Zofran Tab) 4 mg Q6H PRN GTB NAUSEA AND/OR VOMITING; Start at 23:00 Senna (Senokot) 1 tab DAILY GTB Last administered on 10/20/16 09:33; Admin Dose 1 TAB; Start 08/30/16 at 09:00 Zolpidem Tartrate (Ambien) 5 mg QHS PRN GTB INSOMNIA; Start 08/29/16 at 23:00 Lansoprazole (Prevacid) 30 mg DAILY@06 GTB Last administered on 10/20/16 05:46 ; Admin Dose 30 MG; Start 08/30/16 at 06:00 Acetaminophen (Tylenol Liquid) 650 mg Q4H PRN GTB PAIN AND OR ELEVATED TEMP Last administered on 10/02/16 05:42; Admin Dose 650 MG; Start 08/29/16 at 23:00 Miscellaneous Information 1 ea NOTE XX ; Start 08/31/16 at 07:00 Glucose (Glutose) 15 gm Q15M PRN PO DECREASED GLUCOSE; Start 08/31/16 at 07:00 Glucose (Glutose) 22.5 gm Q15M PRN PO DECREASED GLUCOSE; Start 08/31/16 at 07: 00 Dextrose (D50w Syringe) 25 ml Q15M PRN IV DECREASED GLUCOSE Last administered on 10/01/16 06:28; Admin Dose 25 ML; Start 08/31/16 at 07:00 Dextrose (D50w Syringe) 50 ml Q15M PRN IV DECREASED GLUCOSE; Start 08/31/16 at 07:00 Glucagon (Glucagen) 1 mg Q15M PRN IM DECREASED GLUCOSE; Start 08/31/16 at 07:00 Glucose (Glutose) 15 gm Q15M PRN BUCCAL DECREASED GLUCOSE; Start 08/31/16 at 07 :00 Assessment/Plan Chief Complaint/Hosp Course ASSESSMENT AND PLAN: 1. End-stage renal disease. The patient is scheduled for dialysis qod. We will dialyze for 3 hours, 3 K bath, calcium 2.5. 3. Anemia. Continue to monitor hemoglobin and hematocrit levels. Continue Epogen. 4. Mineral bone disorder. Continue to monitor calcium and phosphorus levels. 5. Hypertension. Continue current blood pressure regimen. 6. Hyponatremia, currently stable. Continue dialysis with 140 sodium bath. 7. Chronic respiratory failure, status post tracheostomy. Continue medical management. 8. Diabetes. Continue Accu-Cheks and insulin sliding scale. 9. Chronic encephalopathy. No change. 10. Seizure disorder. Continue medical management. 11. Status post sepsis. 12. History of intracranial bleed. Problems: KIM PEARCE MD Oct 20, 2016 10:26
--- NOTE | 2016-10-20 13:49 | PN ---
Date/Time of Note Date/Time of Note DATE: 10/20/16 TIME: 13:46 Assessment/Plan Lines/Catheters IV Catheter Type (from [facility], [place]): Saline Lock Urinary Cath still in place: No Assessment/Plan Assessment/Plan - S/p sepsis - S/p HCAP. - End-stage renal disease on hemodialysis. Continue hemodialysis per nephrology. Dr. Sales is following in nephrology consultation. - Hypertension. Continue metoprolol and hydralazine. - Diabetes mellitus. Continue Levemir and NovoLog per mild algorithm sliding scale. - Anemia of chronic disease, no indication for transfusion, continue Epogen. - S/p acute on chronic encephalopathy. - History of nontraumatic intracranial bleed, status post craniotomy. - Chronic respiratory failure with tracheostomy. - Possible seizure disorder. Continue Keppra. Further recommendations based on clinical course. Plan of care discussed with Dr. Godinez. Subjective 24 Hr Interval Summary Constitutional: requiring O2 Exam/Review of Systems Vital Signs Vitals Vital Signs Date Time Temp Pulse Resp B/P Pulse Ox O2 Delivery O2 Flow Rate FiO2 10/20/16 11:59 78 18 98 Aerosol 5.0 28 T Tube 10/20/16 08:13 98.3 153/67 Intake and Output 10/19/16 10/19/16 10/20/16 15:00 23:00 07:00 Intake Total 1130 ml 780 ml Output Total 2700 ml Balance -1570 ml 780 ml Exam Constitutional: alert, well developed Respiratory: clear to auscultation, normal air movement Cardiovascular: nl pulses, regular rate and rhythm Gastrointestinal: non-tender, soft Musculoskeletal: muscle weakness Extremities: normal pulses Skin: other Results Result Diagram: 10/19/1651610/19/16516 Medications Medications Current Medications Amlodipine Besylate (Norvasc) 5 mg DAILY GTB Last administered on 10/20/16 09: 36; Admin Dose 5 MG; Start 08/30/16 at 09:00 Clonidine (Catapres) 0.1 mg DAILY PRN GTB ELEVATED SYSTOLIC BP; Start 08/29/16 at 23:00 Doxazosin Mesylate (Cardura) 2 mg QHS GTB Last administered on 10/19/16 21:30 ; Admin Dose 2 MG; Start 08/30/16 at 21:00 Folic Acid (Folic Acid) 1 mg DAILY GTB Last administered on 10/20/16 09:35; Admin Dose 1 MG; Start 08/30/16 at 09:00 Hydralazine HCl (Apresoline) 50 mg Q8 GTB Last administered on 10/20/16 13:32 ; Admin Dose 50 MG; Start 08/30/16 at 06:00 Levetiracetam (Keppra Liquid) 500 mg BID GTB Last administered on 10/20/16 09: 33; Admin Dose 500 MG; Start 08/30/16 at 09:00 Metoprolol Tartrate (Lopressor) 25 mg BID GTB Last administered on 10/20/16 09 :36; Admin Dose 25 MG; Start 08/30/16 at 09:00 Multivit/Ca Carb/ B Cmplx/FA/Prenat (Leah-Juan Jose) 1 tab DAILY GTB Last administered on 10/20/16 09:33; Admin Dose 1 TAB; Start 08/30/16 at 09:00 Ondansetron HCl (Zofran Tab) 4 mg Q6H PRN GTB NAUSEA AND/OR VOMITING; Start at 23:00 Senna (Senokot) 1 tab DAILY GTB Last administered on 10/20/16 09:33; Admin Dose 1 TAB; Start 08/30/16 at 09:00 Zolpidem Tartrate (Ambien) 5 mg QHS PRN GTB INSOMNIA; Start 08/29/16 at 23:00 Lansoprazole (Prevacid) 30 mg DAILY@06 GTB Last administered on 10/20/16 05:46 ; Admin Dose 30 MG; Start 08/30/16 at 06:00 Acetaminophen (Tylenol Liquid) 650 mg Q4H PRN GTB PAIN AND OR ELEVATED TEMP Last administered on 10/02/16 05:42; Admin Dose 650 MG; Start 08/29/16 at 23:00 Miscellaneous Information 1 ea NOTE XX ; Start 08/31/16 at 07:00 Glucose (Glutose) 15 gm Q15M PRN PO DECREASED GLUCOSE; Start 08/31/16 at 07:00 Glucose (Glutose) 22.5 gm Q15M PRN PO DECREASED GLUCOSE; Start 08/31/16 at 07: 00 Dextrose (D50w Syringe) 25 ml Q15M PRN IV DECREASED GLUCOSE Last administered on 10/01/16 06:28; Admin Dose 25 ML; Start 08/31/16 at 07:00 Dextrose (D50w Syringe) 50 ml Q15M PRN IV DECREASED GLUCOSE; Start 08/31/16 at 07:00 Glucagon (Glucagen) 1 mg Q15M PRN IM DECREASED GLUCOSE; Start 08/31/16 at 07:00 Glucose (Glutose) 15 gm Q15M PRN BUCCAL DECREASED GLUCOSE; Start 08/31/16 at 07 :00 CANDY JUAREZ Oct 20, 2016 13:49
[2016-10-20 19:38] VITALS: BP 147/67; RESP 20
[2016-10-20] MEDS: DOXAZOSIN 2 MG TAB GTB SCH (20:27)
[2016-10-21] VITALS (11 sets, daily range): BP systolic 100–161; BP diastolic 50–71; PULSE 68–77; RESP 18–22
[2016-10-21] MEDS: LANSOPRAZOLE 30 MG CAP GTB SCH (05:50)
[2016-10-21] MEDS: LEVALBUTEROL (NEB) 0.63 MG/3 ML AMP NEB SCH ×4 (07:14→20:41)
[2016-10-21 08:43] LABS: ADD SCAN DIFF NO
[2016-10-21 08:52] LABS: BASOPHILS % 0.5 % (0.0-2.0); EOSINOPHILS # 0.1 10^3/ul (0.0-0.5); EOSINOPHILS % 2.5 % (0.0-7.0); HEMATOCRIT 32.4 % (42.0-52.0); HEMOGLOBIN 10.2 g/dl (14.0-18.0); LYMPHOCYTES # 1.2 10^3/ul (0.8-2.9); LYMPHOCYTES % 21.7 % (15.0-51.0); MEAN CORPUSCULAR HEMOGLOBIN 29.6 pg (29.0-33.0); MEAN CORPUSCULAR HGB CONC 31.5 g/dl (32.0-37.0); MEAN CORPUSCULAR VOLUME 93.9 fl (82.0-101.0); MEAN PLATELET VOLUME 9.5 fl (7.4-10.4); MONOCYTE # 0.5 10^3/ul (0.3-0.9); MONOCYTES % 8.8 % (0.0-11.0); NEUTROPHIL # 3.7 10^3/ul (1.6-7.5); PLATELET COUNT 413 10^3/UL (140-415); RED BLOOD COUNT 3.45 10^6/ul (4.70-6.10); WHITE BLOOD COUNT 5.5 10^3/ul (4.8-10.8)
[2016-10-21] MEDS: SEVELAMER CARBONATE 0.8 GM PKT GTB SCH ×3 (08:59→18:34)
[2016-10-21] MEDS: FOLIC ACID 1 MG TAB GTB SCH (08:59)
[2016-10-21] MEDS: MULTIVIT/CA CARB/B CMPLX/FA TAB GTB SCH (08:59)
[2016-10-21] MEDS: LEVETIRACETAM (100 MG/ML) 5ML CUP GTB SCH ×2 (08:59→21:15)
[2016-10-21] MEDS: METOPROLOL 25 MG TAB GTB SCH ×2 (09:00→21:16)
[2016-10-21] MEDS: SENNA TAB GTB SCH (09:00)
[2016-10-21] MEDS: AMLODIPINE 5 MG TAB GTB SCH (09:00)
--- NOTE | 2016-10-21 09:14 | CONS ---
Date/Time of Note Date/Time of Note DATE: 10/21/16 TIME: 09:13 Consult Date/Type/Reason Admit Date/Time Aug 29, 2016 at 16:21 Initial Consult Date 08/31/16 Type of Consultation: neph Ordering Provider: CANDY JUAREZ Subjective The patient is stable, no acute events overnight. No fevers, chills, nausea, vomiting. No shortness of breath. OBJECTIVE: HEENT: Head is normocephalic. NECK: Supple. HEART: Regular rate. LUNGS: Show diminished breath sounds at the bases. ABDOMEN: Soft, nontender to palpation. No rebound or guarding. EXTREMITIES: Negative for clubbing, cyanosis. No edema. DERMATOLOGIC: No rashes. MUSCULOSKELETAL: No joint effusions. NEUROLOGIC: No change in exam. Objective Vital Signs Date Time Temp Pulse Resp B/P Pulse Ox O2 Delivery O2 Flow Rate FiO2 10/21/16 07:32 98.1 83 22 161/65 99 10/21/16 07:14 Aerosol 28 T Tube 10/21/16 05:42 5.0 Intake and Output 10/20/16 10/20/16 10/21/16 15:00 23:00 07:00 Intake Total 780 ml Balance 780 ml Results/Medications Result Diagram: 10/21/16 0825 10/19/16 0517 Results 24 hrs Laboratory Tests Test 10/21/16 08:25 White Blood Count 5.5 Red Blood Count 3.45 L Hemoglobin 10.2 L Hematocrit 32.4 L Mean Corpuscular Volume 93.9 Mean Corpuscular Hemoglobin 29.6 Mean Corpuscular Hemoglobin Concent 31.5 L Red Cell Distribution Width 16.0 H Platelet Count 413 Mean Platelet Volume 9.5 Neutrophils % 66.0 Lymphocytes % 21.7 Monocytes % 8.8 Eosinophils % 2.5 Basophils % 0.5 Nucleated Red Blood Cells % 0.0 Neutrophils # 3.7 Lymphocytes # 1.2 Monocytes # 0.5 Eosinophils # 0.1 Basophils # 0.0 Nucleated Red Blood Cells # 0.0 Medications Current Medications Amlodipine Besylate (Norvasc) 5 mg DAILY GTB Last administered on 10/21/16t 09: 00; Admin Dose 5 MG; Start 08/30/16 at 09:00 Clonidine (Catapres) 0.1 mg DAILY PRN GTB ELEVATED SYSTOLIC BP; Start 08/29/16 at 23:00 Doxazosin Mesylate (Cardura) 2 mg QHS GTB Last administered on 10/20/16 20:27 ; Admin Dose 2 MG; Start 08/30/16 at 21:00 Folic Acid (Folic Acid) 1 mg DAILY GTB Last administered on 10/21/16 08:59; Admin Dose 1 MG; Start 08/30/16 at 09:00 Hydralazine HCl (Apresoline) 50 mg Q8 GTB Last administered on 10/21/16 05:50 ; Admin Dose 50 MG; Start 08/30/16 at 06:00 Levetiracetam (Keppra Liquid) 500 mg BID GTB Last administered on 10/21/16 08: 59; Admin Dose 500 MG; Start 08/30/16 at 09:00 Metoprolol Tartrate (Lopressor) 25 mg BID GTB Last administered on 10/21/16 09 :00; Admin Dose 25 MG; Start 08/30/16 at 09:00 Multivit/Ca Carb/ B Cmplx/FA/Prenat (Leah-Juan Jose) 1 tab DAILY GTB Last administered on 10/21/16 08:59; Admin Dose 1 TAB; Start 08/30/16 at 09:00 Ondansetron HCl (Zofran Tab) 4 mg Q6H PRN GTB NAUSEA AND/OR VOMITING; Start at 23:00 Senna (Senokot) 1 tab DAILY GTB Last administered on 10/21/16 09:00; Admin Dose 1 TAB; Start 08/30/16 at 09:00 Zolpidem Tartrate (Ambien) 5 mg QHS PRN GTB INSOMNIA; Start 08/29/16 at 23:00 Lansoprazole (Prevacid) 30 mg DAILY@06 GTB Last administered on 10/21/16 05:50 ; Admin Dose 30 MG; Start 08/30/16 at 06:00 Acetaminophen (Tylenol Liquid) 650 mg Q4H PRN GTB PAIN AND OR ELEVATED TEMP Last administered on 10/02/16 05:42; Admin Dose 650 MG; Start 08/29/16 at 23:00 Miscellaneous Information 1 ea NOTE XX ; Start 08/31/16 at 07:00 Glucose (Glutose) 15 gm Q15M PRN PO DECREASED GLUCOSE; Start 08/31/16 at 07:00 Glucose (Glutose) 22.5 gm Q15M PRN PO DECREASED GLUCOSE; Start 08/31/16 at 07: 00 Dextrose (D50w Syringe) 25 ml Q15M PRN IV DECREASED GLUCOSE Last administered on 10/01/16 06:28; Admin Dose 25 ML; Start 08/31/16 at 07:00 Dextrose (D50w Syringe) 50 ml Q15M PRN IV DECREASED GLUCOSE; Start 08/31/16 at 07:00 Glucagon (Glucagen) 1 mg Q15M PRN IM DECREASED GLUCOSE; Start 08/31/16 at 07:00 Glucose (Glutose) 15 gm Q15M PRN BUCCAL DECREASED GLUCOSE; Start 08/31/16 at 07 :00 Assessment/Plan Chief Complaint/Hosp Course ASSESSMENT AND PLAN: 1. End-stage renal disease. The patient is scheduled for dialysis qod. We will dialyze for 3 hours, 3 K bath, calcium 2.5. 3. Anemia. Continue to monitor hemoglobin and hematocrit levels. Continue Epogen. 4. Mineral bone disorder. Continue to monitor calcium and phosphorus levels. 5. Hypertension. Continue current blood pressure regimen. 6. Hyponatremia, currently stable. Continue dialysis with 140 sodium bath. 7. Chronic respiratory failure, status post tracheostomy. Continue medical management. 8. Diabetes. Continue Accu-Cheks and insulin sliding scale. 9. Chronic encephalopathy. No change. 10. Seizure disorder. Continue medical management. 11. Status post sepsis. 12. History of intracranial bleed. Problems: KIM PEARCE MD Oct 21, 2016 09:14
[2016-10-21 09:24] LABS: CALCIUM 10.1 mg/dl (8.4-10.2); CREATININE 3.78 mg/dl (0.61-1.24); POTASSIUM 3.9 mmol/L (3.5-5.1)
--- NOTE | 2016-10-21 14:52 | PN ---
Date/Time of Note Date/Time of Note DATE: 10/21/16 TIME: 14:51 Assessment/Plan Lines/Catheters IV Catheter Type (from [facility]): Perm-a- cath Urinary Cath still in place: No Assessment/Plan Assessment/Plan - S/p sepsis - S/p HCAP. - Hyponatremia- per nephrology - End-stage renal disease on hemodialysis. Continue hemodialysis per nephrology. Dr. Sales is following in nephrology consultation. - Hypertension. Continue metoprolol and hydralazine. - Diabetes mellitus. Continue Levemir and NovoLog per mild algorithm sliding scale. - Anemia of chronic disease, no indication for transfusion, continue Epogen. - S/p acute on chronic encephalopathy. - History of nontraumatic intracranial bleed, status post craniotomy. - Chronic respiratory failure with tracheostomy. - Possible seizure disorder. Continue Keppra. Further recommendations based on clinical course. Plan of care discussed with Dr. Godinez. Subjective 24 Hr Interval Summary Free Text/Dictation Having HD now- tolerated well. dw staff Constitutional: requiring IVF Respiratory: no complaints Cardiovascular: no complaints Exam/Review of Systems Vital Signs Vitals Vital Signs Date Time Temp Pulse Resp B/P Pulse Ox O2 Delivery O2 Flow Rate FiO2 10/21/16 14:10 72 10/21/16 11:25 16 10/21/16 08:15 5.0 10/21/16 07:32 98.1 161/65 99 10/21/16 07:14 Aerosol 28 T Tube Intake and Output 10/20/16 10/20/16 10/21/16 15:00 23:00 07:00 Intake Total 780 ml Balance 780 ml Exam Constitutional: alert Neck: other Respiratory: clear to auscultation, normal air movement Cardiovascular: nl pulses, regular rate and rhythm Gastrointestinal: non-tender, other, soft Musculoskeletal: muscle weakness Extremities: normal pulses Neurological: other Results Result Diagram: 10/21/16 0825 10/21/16 0825 Results 24 hrs Laboratory Tests Test 10/21/16 08:25 White Blood Count 5.5 Red Blood Count 3.45 L Hemoglobin 10.2 L Hematocrit 32.4 L Mean Corpuscular Volume 93.9 Mean Corpuscular Hemoglobin 29.6 Mean Corpuscular Hemoglobin Concent 31.5 L Red Cell Distribution Width 16.0 H Platelet Count 413 Mean Platelet Volume 9.5 Neutrophils % 66.0 Lymphocytes % 21.7 Monocytes % 8.8 Eosinophils % 2.5 Basophils % 0.5 Nucleated Red Blood Cells % 0.0 Neutrophils # 3.7 Lymphocytes # 1.2 Monocytes # 0.5 Eosinophils # 0.1 Basophils # 0.0 Nucleated Red Blood Cells # 0.0 Sodium Level 127 L Potassium Level 3.9 Chloride Level 88 L Carbon Dioxide Level 31 Anion Gap 12 Blood Urea Nitrogen 65 H Creatinine 3.78 H Glucose Level 110 Calcium Level 10.1 Medications Medications Current Medications Amlodipine Besylate (Norvasc) 5 mg DAILY GTB Last administered on 10/21/16 09: 00; Admin Dose 5 MG; Start 08/30/16 at 09:00 Clonidine (Catapres) 0.1 mg DAILY PRN GTB ELEVATED SYSTOLIC BP; Start 08/29/16 at 23:00 Doxazosin Mesylate (Cardura) 2 mg QHS GTB Last administered on 10/20/16 20:27 ; Admin Dose 2 MG; Start 08/30/16 at 21:00 Folic Acid (Folic Acid) 1 mg DAILY GTB Last administered on 10/21/16 08:59; Admin Dose 1 MG; Start 08/30/16 at 09:00 Hydralazine HCl (Apresoline) 50 mg Q8 GTB Last administered on 10/21/16 05:50 ; Admin Dose 50 MG; Start 08/30/16 at 06:00 Levetiracetam (Keppra Liquid) 500 mg BID GTB Last administered on 10/21/16 08: 59; Admin Dose 500 MG; Start 08/30/16 at 09:00 Metoprolol Tartrate (Lopressor) 25 mg BID GTB Last administered on 10/21/16 09 :00; Admin Dose 25 MG; Start 08/30/16 at 09:00 Multivit/Ca Carb/ B Cmplx/FA/Prenat (Leah-Juan Jose) 1 tab DAILY GTB Last administered on 10/21/16 08:59; Admin Dose 1 TAB; Start 08/30/16 at 09:00 Ondansetron HCl (Zofran Tab) 4 mg Q6H PRN GTB NAUSEA AND/OR VOMITING; Start at 23:00 Senna (Senokot) 1 tab DAILY GTB Last administered on 10/21/16 09:00; Admin Dose 1 TAB; Start 08/30/16 at 09:00 Zolpidem Tartrate (Ambien) 5 mg QHS PRN GTB INSOMNIA; Start 08/29/16 at 23:00 Lansoprazole (Prevacid) 30 mg DAILY@06 GTB Last administered on 10/21/16 05:50 ; Admin Dose 30 MG; Start 08/30/16 at 06:00 Acetaminophen (Tylenol Liquid) 650 mg Q4H PRN GTB PAIN AND OR ELEVATED TEMP Last administered on 10/02/16 05:42; Admin Dose 650 MG; Start 08/29/16 at 23:00 Miscellaneous Information 1 ea NOTE XX ; Start 08/31/16 at 07:00 Glucose (Glutose) 15 gm Q15M PRN PO DECREASED GLUCOSE; Start 08/31/16 at 07:00 Glucose (Glutose) 22.5 gm Q15M PRN PO DECREASED GLUCOSE; Start 08/31/16 at 07: 00 Dextrose (D50w Syringe) 25 ml Q15M PRN IV DECREASED GLUCOSE Last administered on 10/01/16 06:28; Admin Dose 25 ML; Start 08/31/16 at 07:00 Dextrose (D50w Syringe) 50 ml Q15M PRN IV DECREASED GLUCOSE; Start 08/31/16 at 07:00 Glucagon (Glucagen) 1 mg Q15M PRN IM DECREASED GLUCOSE; Start 08/31/16 at 07:00 Glucose (Glutose) 15 gm Q15M PRN BUCCAL DECREASED GLUCOSE; Start 08/31/16 at 07 :00 CANDY JUAREZ Oct 21, 2016 14:52
[2016-10-21] MEDS: DOXAZOSIN 2 MG TAB GTB SCH (21:15)
[2016-10-22] MEDS: LANSOPRAZOLE 30 MG CAP GTB SCH (05:48)
[2016-10-22 07:24] VITALS: BP 154/66; RESP 18
[2016-10-22] MEDS: SEVELAMER CARBONATE 0.8 GM PKT GTB SCH ×3 (08:36→17:23)
[2016-10-22] MEDS: SENNA TAB GTB SCH (08:36)
[2016-10-22] MEDS: MULTIVIT/CA CARB/B CMPLX/FA TAB GTB SCH (08:36)
[2016-10-22] MEDS: LEVETIRACETAM (100 MG/ML) 5ML CUP GTB SCH ×2 (08:36→20:29)
[2016-10-22] MEDS: AMLODIPINE 5 MG TAB GTB SCH (08:37)
[2016-10-22] MEDS: FOLIC ACID 1 MG TAB GTB SCH (08:37)
[2016-10-22] MEDS: METOPROLOL 25 MG TAB GTB SCH ×2 (08:38→20:29)
[2016-10-22] MEDS: LEVALBUTEROL (NEB) 0.63 MG/3 ML AMP NEB SCH ×4 (09:17→20:36)
[2016-10-22 13:54] VITALS: BP 148/67; PULSE 77
--- NOTE | 2016-10-22 17:58 | PN ---
Date/Time of Note Date/Time of Note DATE: 10/22/16 TIME: 17:57 Assessment/Plan VTE Prophylaxis VTE Prophylaxis Intervention: SCD's Lines/Catheters [facility] Perm-a-cath Urinary Cath still in place: No Assessment/Plan Chief Complaint/Hosp Course No acute events overnight patient looks comfortable. Assessment/Plan - S/p sepsis - S/p HCAP. - End-stage renal disease on hemodialysis. Continue hemodialysis per nephrology. Dr. Sales is following in nephrology consultation. - Hypertension. Continue metoprolol and hydralazine. - Diabetes mellitus. Continue Levemir and NovoLog per mild algorithm sliding scale. - Anemia of chronic disease, no indication for transfusion, continue Epogen. - S/p acute on chronic encephalopathy. - History of nontraumatic intracranial bleed, status post craniotomy. - Chronic respiratory failure with tracheostomy. - Possible seizure disorder. Continue Keppra. Further recommendations based on clinical course. Plan of care discussed with Dr. Godinez. Problems: Exam/Review of Systems Vital Signs Vitals Vital Signs Date Time Temp Pulse Resp B/P Pulse Ox O2 Delivery O2 Flow Rate FiO2 10/22/16 16:25 76 16 97 Aerosol 5.0 28 10/22/16 13:54 148/67 10/22/16 07:24 98.3 Intake and Output 10/21/16 10/21/16 10/22/16 15:00 23:00 07:00 Intake Total 400 ml 780 ml Output Total 2200 ml Balance -1800 ml 780 ml Exam Constitutional: Awake Neck: other (Tracheostomy), supple Respiratory: slightly diminished at the bases breath sounds, Cardiovascular: nl pulse Gastrointestinal: non-tender, other (G-tube), soft Extremities: normal pulses Neurological: confused Additional Comments Right chest permacath Results Result Diagram: 10/21/1682410/21/16824 Medications Medications Current Medications Amlodipine Besylate (Norvasc) 5 mg DAILY GTB Last administered on 10/22/16 08: 37; Admin Dose 5 MG; Start 08/30/16 at 09:00 Clonidine (Catapres) 0.1 mg DAILY PRN GTB ELEVATED SYSTOLIC BP; Start 08/29/16 at 23:00 Doxazosin Mesylate (Cardura) 2 mg QHS GTB Last administered on 10/21/16 21:15 ; Admin Dose 2 MG; Start 08/30/16 at 21:00 Folic Acid (Folic Acid) 1 mg DAILY GTB Last administered on 10/22/16 08:37; Admin Dose 1 MG; Start 08/30/16 at 09:00 Hydralazine HCl (Apresoline) 50 mg Q8 GTB Last administered on 10/22/16 13:53 ; Admin Dose 50 MG; Start 08/30/16 at 06:00 Levetiracetam (Keppra Liquid) 500 mg BID GTB Last administered on 10/22/16 08: 36; Admin Dose 500 MG; Start 08/30/16 at 09:00 Metoprolol Tartrate (Lopressor) 25 mg BID GTB Last administered on 10/22/16 08 :38; Admin Dose 25 MG; Start 08/30/16 at 09:00 Multivit/Ca Carb/ B Cmplx/FA/Prenat (Leah-Juan Jose) 1 tab DAILY GTB Last administered on 10/22/16 08:36; Admin Dose 1 TAB; Start 08/30/16 at 09:00 Ondansetron HCl (Zofran Tab) 4 mg Q6H PRN GTB NAUSEA AND/OR VOMITING; Start at 23:00 Senna (Senokot) 1 tab DAILY GTB Last administered on 10/22/16 08:36; Admin Dose 1 TAB; Start 08/30/16 at 09:00 Zolpidem Tartrate (Ambien) 5 mg QHS PRN GTB INSOMNIA; Start 08/29/16 at 23:00 Lansoprazole (Prevacid) 30 mg DAILY@06 GTB Last administered on 10/22/16 05:48 ; Admin Dose 30 MG; Start 08/30/16 at 06:00 Acetaminophen (Tylenol Liquid) 650 mg Q4H PRN GTB PAIN AND OR ELEVATED TEMP Last administered on 10/02/16 05:42; Admin Dose 650 MG; Start 08/29/16 at 23:00 Miscellaneous Information 1 ea NOTE XX ; Start 08/31/16 at 07:00 Glucose (Glutose) 15 gm Q15M PRN PO DECREASED GLUCOSE; Start 08/31/16 at 07:00 Glucose (Glutose) 22.5 gm Q15M PRN PO DECREASED GLUCOSE; Start 08/31/16 at 07: 00 Dextrose (D50w Syringe) 25 ml Q15M PRN IV DECREASED GLUCOSE Last administered on 10/01/16 06:28; Admin Dose 25 ML; Start 08/31/16 at 07:00 Dextrose (D50w Syringe) 50 ml Q15M PRN IV DECREASED GLUCOSE; Start 08/31/16 at 07:00 Glucagon (Glucagen) 1 mg Q15M PRN IM DECREASED GLUCOSE; Start 08/31/16 at 07:00 Glucose (Glutose) 15 gm Q15M PRN BUCCAL DECREASED GLUCOSE; Start 08/31/16 at 07 :00 NOELLE JIMENEZ Oct 22, 2016 17:58
[2016-10-22 20:00] VITALS: BP 144/67; RESP 16
[2016-10-22] MEDS: DOXAZOSIN 2 MG TAB GTB SCH (20:29)
[2016-10-22 22:00] VITALS: BP 138/68; PULSE 70; RESP 18
[2016-10-23] VITALS (10 sets, daily range): BP systolic 117–147; BP diastolic 56–69; PULSE 70–74; RESP 18
[2016-10-23] MEDS: LANSOPRAZOLE 30 MG CAP GTB SCH (06:19)
[2016-10-23] MEDS: LEVALBUTEROL (NEB) 0.63 MG/3 ML AMP NEB SCH ×4 (07:10→19:38)
[2016-10-23 07:15] LABS: CALCIUM 10.1 mg/dl (8.4-10.2); CREATININE 3.88 mg/dl (0.61-1.24); MAGNESIUM 2.5 mg/dl (1.7-2.5); PHOSPHORUS 3.2 mg/dl (2.5-4.9); POTASSIUM 3.5 mmol/L (3.5-5.1)
--- NOTE | 2016-10-23 07:44 | PN ---
DATE: 10/22/2016 SUBJECTIVE: The patient is stable. The patient had hemodialysis yesterday, tolerated well without complications. No other events noted. OBJECTIVE: VITAL SIGNS: Blood pressure 154/66, respiration 18, pulse 74, temperature 98.3. HEENT: Head is normocephalic. NECK: Supple. HEART: Regular rate. LUNGS: Show diminished breath sounds at the base. ABDOMEN: Soft, nontender to palpation without rebound or guarding. EXTREMITIES: Negative for clubbing, cyanosis, edema. DERMATOLOGIC: No rashes. MUSCULOSKELETAL: No joint effusions. NEUROLOGIC: No change in exam. MEDICATIONS: The patient's medications have been reviewed. LABORATORY DATA: Has been reviewed. No new labs. ASSESSMENT AND PLAN: 1. End-stage renal disease for the patient is scheduled for dialysis tomorrow with dialyze for 3 ho urs, 2K bath, calcium 2.5. 2. Anemia. Continue to monitor hemoglobin and hematocrit levels. Continue Epogen. 3. Mineral bone disorder. Continue to monitor calcium and phosphorus level. 4. Hypertension. Continue current blood pressure regimen. 5. Hyponatremia. Continue dialysis on a 140 sodium bath. 6. Chronic respiratory failure status post trach. Continue current medical management. 7. Diabetes. Continue Accu-Cheks, insulin sliding scale. 8. Chronic encephalopathy. No change. 9. Seizure disorder. Continue current medical management. 10. Status post sepsis. 11. History of intracranial bleed. Dictated By: MARYURI WALLER/FRANCES Conf#: [id number] DID#: [id number]
[2016-10-23] MEDS: METOPROLOL 25 MG TAB GTB SCH ×2 (09:00→20:49)
[2016-10-23] MEDS: AMLODIPINE 5 MG TAB GTB SCH (09:00)
[2016-10-23] MEDS: FOLIC ACID 1 MG TAB GTB SCH (09:46)
[2016-10-23] MEDS: LEVETIRACETAM (100 MG/ML) 5ML CUP GTB SCH ×2 (09:46→20:48)
[2016-10-23] MEDS: MULTIVIT/CA CARB/B CMPLX/FA TAB GTB SCH (09:46)
[2016-10-23] MEDS: SENNA TAB GTB SCH (09:46)
[2016-10-23] MEDS: SEVELAMER CARBONATE 0.8 GM PKT GTB SCH ×3 (09:46→18:03)
--- NOTE | 2016-10-23 11:05 | PN ---
DATE: 10/23/2016 SUBJECTIVE: The patient is stable, no acute events overnight. No fevers, chills, nausea, vomiting. The patient is scheduled for hemodialysis today. OBJECTIVE: VITAL SIGNS: Blood pressure is 147/67, respirations 18, pulse 82, temperature 97.6. HEENT: Head is normocephalic. NECK: Supple. HEART: Regular rate. LUNGS: Show diminished breath sounds at the bases. ABDOMEN: Soft, nontender to palpation. No rebound or guarding. EXTREMITIES: Negative for clubbing, cyanosis. No edema. DERMATOLOGIC: No rashes. MUSCULOSKELETAL: No joint effusions. NEUROLOGIC: No change in exam. MEDICATIONS: The patient's medications have been reviewed. LABORATORY DATA: Shows sodium 130, potassium 3.5, chloride 90, BUN 55, creatinine 3.88. ASSESSMENT AND PLAN: 1. End-stage renal disease. The patient is scheduled for dialysis today for 3 hours, 3 K bath, margarito cium 2.5. 2. Anemia. Continue to monitor hemoglobin and hematocrit levels. Continue Epogen. 3. Mineral bone disorder. Continue to monitor calcium and phosphorus levels. 4. Hypertension. Continue current blood pressure regimen. 5. Hyponatremia. The patient will be dialyzed on 140 sodium bath. 6. Chronic respiratory failure. Continue current medical management. 7. Diabetes. Continue Accu-Cheks and insulin sliding scale. 8. Chronic encephalopathy. No change. 9. Seizure disorder. Continue current medical management. 10. Status post sepsis. 11. Status post intracranial bleed. Dictated By: MARYURI WALLER/FRANCES Conf#: [id number] DID#: [id number]
--- NOTE | 2016-10-23 18:07 | PN ---
Date/Time of Note Date/Time of Note DATE: 10/23/16 TIME: 18:06 Assessment/Plan VTE Prophylaxis VTE Prophylaxis Intervention: SCD's Lines/Catheters IV [facility]atheter Type (from [facility]): Permacath Urinary Cath still in place: No Assessment/Plan Chief Complaint/Hosp Course Patient status post hemodialysis today, remains clinically stable. Assessment/Plan - S/p sepsis - S/p HCAP. - End-stage renal disease on hemodialysis. Continue hemodialysis per nephrology. Dr. Sales is following in nephrology consultation. - Hypertension. Continue metoprolol and hydralazine. - Diabetes mellitus. Continue Levemir and NovoLog per mild algorithm sliding scale. - Anemia of chronic disease, no indication for transfusion, continue Epogen. - S/p acute on chronic encephalopathy. - History of nontraumatic intracranial bleed, status post craniotomy. - Chronic respiratory failure with tracheostomy. - Possible seizure disorder. Continue Keppra. Further recommendations based on clinical course. Plan of care discussed with Dr. Godinez. Problems: Exam/Review of Systems Vital Signs Vitals Vital Signs Date Time Temp Pulse Resp B/P Pulse Ox O2 Delivery O2 Flow Rate FiO2 10/23/16 16:16 74 18 99 Aerosol 5.0 28 T Tube 10/23/16 08:20 97.7 147/67 Intake and Output 10/22/16 10/22/16 10/23/16 15:00 23:00 07:00 Intake Total 0 ml 780 ml Output Total 0 ml Balance 0 ml 780 ml Exam Constitutional: Awake Neck: other (Tracheostomy), supple Respiratory: slightly diminished at the bases breath sounds, Cardiovascular: nl pulse Gastrointestinal: non-tender, other (G-tube), soft Extremities: normal pulses Neurological: confused Additional Comments Right chest permacath Results Result Diagram: 10/21/16 0825 10/23/16 0535 Results 24 hrs Laboratory Tests Test 10/23/16 05:35 Sodium Level 130 L Potassium Level 3.5 Chloride Level 90 L Carbon Dioxide Level 33 H Anion Gap 11 Blood Urea Nitrogen 55 H Creatinine 3.88 H Glucose Level 91 Calcium Level 10.1 Phosphorus Level 3.2 Magnesium Level 2.5 Medications Medications Current Medications Amlodipine Besylate (Norvasc) 5 mg DAILY GTB Last administered on 10/22/16t 08: 37; Admin Dose 5 MG; Start 08/30/16 at 09:00 Clonidine (Catapres) 0.1 mg DAILY PRN GTB ELEVATED SYSTOLIC BP; Start 08/29/16 at 23:00 Doxazosin Mesylate (Cardura) 2 mg QHS GTB Last administered on 10/22/16 20:29 ; Admin Dose 2 MG; Start 08/30/16 at 21:00 Folic Acid (Folic Acid) 1 mg DAILY GTB Last administered on 10/23/16 09:46; Admin Dose 1 MG; Start 08/30/16 at 09:00 Hydralazine HCl (Apresoline) 50 mg Q8 GTB Last administered on 10/23/16 06:20 ; Admin Dose 50 MG; Start 08/30/16 at 06:00 Levetiracetam (Keppra Liquid) 500 mg BID GTB Last administered on 10/23/16 09: 46; Admin Dose 500 MG; Start 08/30/16 at 09:00 Metoprolol Tartrate (Lopressor) 25 mg BID GTB Last administered on 10/22/16 20 :29; Admin Dose 25 MG; Start 08/30/16 at 09:00 Multivit/Ca Carb/ B Cmplx/FA/Prenat (Leah-Juan Jose) 1 tab DAILY GTB Last administered on 10/23/16 09:46; Admin Dose 1 TAB; Start 08/30/16 at 09:00 Ondansetron HCl (Zofran Tab) 4 mg Q6H PRN GTB NAUSEA AND/OR VOMITING; Start at 23:00 Senna (Senokot) 1 tab DAILY GTB Last administered on 10/23/16 09:46; Admin Dose 1 TAB; Start 08/30/16 at 09:00 Zolpidem Tartrate (Ambien) 5 mg QHS PRN GTB INSOMNIA; Start 08/29/16 at 23:00 Lansoprazole (Prevacid) 30 mg DAILY@06 GTB Last administered on 10/23/16 06:19 ; Admin Dose 30 MG; Start 08/30/16 at 06:00 Acetaminophen (Tylenol Liquid) 650 mg Q4H PRN GTB PAIN AND OR ELEVATED TEMP Last administered on 10/02/16 05:42; Admin Dose 650 MG; Start 4/26/17 at 23:00 Miscellaneous Information 1 ea NOTE XX ; Start 08/31/16 at 07:00 Glucose (Glutose) 15 gm Q15M PRN PO DECREASED GLUCOSE; Start 08/31/16 at 07:00 Glucose (Glutose) 22.5 gm Q15M PRN PO DECREASED GLUCOSE; Start 08/31/16 at 07: 00 Dextrose (D50w Syringe) 25 ml Q15M PRN IV DECREASED GLUCOSE Last administered on 10/01/16 06:28; Admin Dose 25 ML; Start 08/31/16 at 07:00 Dextrose (D50w Syringe) 50 ml Q15M PRN IV DECREASED GLUCOSE; Start 08/31/16 at 07:00 Glucagon (Glucagen) 1 mg Q15M PRN IM DECREASED GLUCOSE; Start 08/31/16 at 07:00 Glucose (Glutose) 15 gm Q15M PRN BUCCAL DECREASED GLUCOSE; Start 08/31/16 at 07 :00 NOELLE JIMENEZ Oct 23, 2016 18:07
[2016-10-23] MEDS: EPOETIN 10000 UNITS/1 ML INJ (ESRD) SC SCH (18:09)
[2016-10-23] MEDS: DOXAZOSIN 2 MG TAB GTB SCH (20:49)
[2016-10-24] MEDS: LANSOPRAZOLE 30 MG CAP GTB SCH (05:32)
[2016-10-24 06:46] LABS: CALCIUM 10.4 mg/dl (8.4-10.2); CREATININE 2.61 mg/dl (0.61-1.24); POTASSIUM 3.7 mmol/L (3.5-5.1)
[2016-10-24] MEDS: LEVALBUTEROL (NEB) 0.63 MG/3 ML AMP NEB SCH ×4 (07:52→22:10)
[2016-10-24 07:57] VITALS: BP 114/53; RESP 18
[2016-10-24] MEDS: SEVELAMER CARBONATE 0.8 GM PKT GTB SCH ×3 (09:35→19:02)
[2016-10-24] MEDS: LEVETIRACETAM (100 MG/ML) 5ML CUP GTB SCH ×2 (09:35→21:34)
[2016-10-24] MEDS: FOLIC ACID 1 MG TAB GTB SCH (09:35)
[2016-10-24] MEDS: SENNA TAB GTB SCH (09:35)
[2016-10-24] MEDS: AMLODIPINE 5 MG TAB GTB SCH (09:36)
[2016-10-24] MEDS: METOPROLOL 25 MG TAB GTB SCH ×2 (09:36→21:34)
[2016-10-24] MEDS: MULTIVIT/CA CARB/B CMPLX/FA TAB GTB SCH (09:37)
--- NOTE | 2016-10-24 10:01 | PN ---
DATE: 10/24/2016 SUBJECTIVE: The patient is stable, no acute events overnight. No fevers, chills, nausea, vomiting, no shortness of breath. OBJECTIVE: VITAL SIGNS: Blood pressure is 114/53, respirations 18, pulse 87, temperature 98.9. HEENT: Head is normocephalic. NECK: Supple. HEART: Regular rate. LUNGS: Show diminished breath sounds at base. ABDOMEN: Soft, nontender to palpation. No rebound or guarding. EXTREMITIES: Negative for clubbing, cyanosis, no edema. DERMATOLOGIC: No rashes. MUSCULOSKELETAL: No joint effusions. NEUROLOGIC: No change in exam. MEDICATIONS: The patient's medications have been reviewed. LABORATORY DATA: Shows sodium 145, potassium 3.7, BUN 36, creatinine 2.16. ASSESSMENT AND PLAN: 1. End-stage renal disease. The patient had hemodialysis yesterday. Plan for dialysis tomorrow. 2. Anemia. Continue to monitor hemoglobin and hematocrit levels. 3. Mineral bone disorder. Continue to monitor calcium and phosphorus levels. 4. Hypertension. Continue current blood pressure regimen. 5. Hyponatremia, improved. Continue dialysis on 140 sodium bath. 6. Chronic respiratory failure, status post trach. Continue to monitor. 7. Diabetes. Continue Accu-Cheks, insulin sliding scale. 8. Chronic encephalopathy. No change. 9. Seizure disorder. Continue current medical management. 10. Status post sepsis. 11. Status post intracranial bleed. Dictated By: MARYURI WALLER/FRANCES Conf#: [id number] DID#: [id number]
--- NOTE | 2016-10-24 14:02 | PN ---
Date/Time of Note Date/Time of Note DATE: 10/24/16 TIME: 14:00 Assessment/Plan VTE Prophylaxis VTE Prophylaxis Intervention: SCD's Lines/Catheters [facility] Perm-a-cath Urinary Cath still in place: No Assessment/Plan Chief Complaint/Hosp Course No acute events overnight, no fever no diarrhea per RN. Assessment/Plan - S/p sepsis - S/p HCAP. - End-stage renal disease on hemodialysis. Continue hemodialysis per nephrology. Dr. Sales is following in nephrology consultation. - Hypertension. Continue metoprolol and hydralazine. - Diabetes mellitus. Continue Levemir and NovoLog per mild algorithm sliding scale. - Anemia of chronic disease, no indication for transfusion, continue Epogen. - S/p acute on chronic encephalopathy. - History of nontraumatic intracranial bleed, status post craniotomy. - Chronic respiratory failure with tracheostomy. - Possible seizure disorder. Continue Keppra. Further recommendations based on clinical course. Plan of care discussed with Dr. Godinez. Problems: Exam/Review of Systems Vital Signs Vitals Vital Signs Date Time Temp Pulse Resp B/P Pulse Ox O2 Delivery O2 Flow Rate FiO2 10/24/16 12:44 77 16 100 Aerosol 5.0 28 T Tube 10/24/16 07:57 98.9 114/53 Intake and Output 10/23/16 10/23/16 10/24/16 15:00 23:00 07:00 Intake Total 1080 ml Output Total 3300 ml Balance -2220 ml Exam Constitutional: Awake Neck: other (Tracheostomy), supple Respiratory: slightly diminished at the bases breath sounds, Cardiovascular: nl pulse Gastrointestinal: non-tender, other (G-tube), soft Extremities: normal pulses Neurological: confused Additional Comments Right chest permacath Results Result Diagram: 10/21/16 0825 10/24/16 0505 Results 24 hrs Laboratory Tests Test 10/24/16 05:05 Sodium Level 145 #H Potassium Level 3.7 Chloride Level 103 # Carbon Dioxide Level 33 H Anion Gap 13 Blood Urea Nitrogen 36 #H Creatinine 2.61 #H Glucose Level 99 Calcium Level 10.4 H Medications Medications Current Medications Amlodipine Besylate (Norvasc) 5 mg DAILY GTB Last administered on 10/24/16t 09: 36; Admin Dose 5 MG; Start 08/30/16 at 09:00 Clonidine (Catapres) 0.1 mg DAILY PRN GTB ELEVATED SYSTOLIC BP; Start 08/29/16 at 23:00 Doxazosin Mesylate (Cardura) 2 mg QHS GTB Last administered on 10/23/16 20:49 ; Admin Dose 2 MG; Start 08/30/16 at 21:00 Folic Acid (Folic Acid) 1 mg DAILY GTB Last administered on 10/24/16 09:35; Admin Dose 1 MG; Start 08/30/16 at 09:00 Hydralazine HCl (Apresoline) 50 mg Q8 GTB Last administered on 10/24/16 13:22 ; Admin Dose 50 MG; Start 08/30/16 at 06:00 Levetiracetam (Keppra Liquid) 500 mg BID GTB Last administered on 10/24/16 09: 35; Admin Dose 500 MG; Start 08/30/16 at 09:00 Metoprolol Tartrate (Lopressor) 25 mg BID GTB Last administered on 10/24/16 09 :36; Admin Dose 25 MG; Start 08/30/16 at 09:00 Multivit/Ca Carb/ B Cmplx/FA/Prenat (Leah-Juan Jose) 1 tab DAILY GTB Last administered on 10/24/16 09:37; Admin Dose 1 TAB; Start 08/30/16 at 09:00 Ondansetron HCl (Zofran Tab) 4 mg Q6H PRN GTB NAUSEA AND/OR VOMITING; Start at 23:00 Senna (Senokot) 1 tab DAILY GTB Last administered on 10/24/16 09:35; Admin Dose 1 TAB; Start 08/30/16 at 09:00 Zolpidem Tartrate (Ambien) 5 mg QHS PRN GTB INSOMNIA; Start 08/29/16 at 23:00 Lansoprazole (Prevacid) 30 mg DAILY@06 GTB Last administered on 10/24/16 05:32 ; Admin Dose 30 MG; Start 08/30/16 at 06:00 Acetaminophen (Tylenol Liquid) 650 mg Q4H PRN GTB PAIN AND OR ELEVATED TEMP Last administered on 10/02/16 05:42; Admin Dose 650 MG; Start 08/29/16 at 23:00 Miscellaneous Information 1 ea NOTE XX ; Start 08/31/16 at 07:00 Glucose (Glutose) 15 gm Q15M PRN PO DECREASED GLUCOSE; Start 08/31/16 at 07:00 Glucose (Glutose) 22.5 gm Q15M PRN PO DECREASED GLUCOSE; Start 08/31/16 at 07: 00 Dextrose (D50w Syringe) 25 ml Q15M PRN IV DECREASED GLUCOSE Last administered on 10/01/16 06:28; Admin Dose 25 ML; Start 08/31/16 at 07:00 Dextrose (D50w Syringe) 50 ml Q15M PRN IV DECREASED GLUCOSE; Start 08/31/16 at 07:00 Glucagon (Glucagen) 1 mg Q15M PRN IM DECREASED GLUCOSE; Start 08/31/16 at 07:00 Glucose (Glutose) 15 gm Q15M PRN BUCCAL DECREASED GLUCOSE; Start 08/31/16 at 07 :00 NOELLE JIMENEZ Oct 24, 2016 14:02
[2016-10-24 19:23] VITALS: BP 127/60; RESP 19
[2016-10-24 19:55] VITALS: BP 127/60; RESP 19
[2016-10-24] MEDS: DOXAZOSIN 2 MG TAB GTB SCH (21:34)
[2016-10-25] VITALS (9 sets, daily range): BP systolic 108–168; BP diastolic 54–73; PULSE 70–78; RESP 18
[2016-10-25] MEDS: LANSOPRAZOLE 30 MG CAP GTB SCH (05:44)
[2016-10-25 06:48] LABS: CALCIUM 10.2 mg/dl (8.4-10.2); CREATININE 4.14 mg/dl (0.61-1.24); MAGNESIUM 2.7 mg/dl (1.7-2.5); PHOSPHORUS 3.2 mg/dl (2.5-4.9); POTASSIUM 3.2 mmol/L (3.5-5.1)
[2016-10-25] MEDS: LEVALBUTEROL (NEB) 0.63 MG/3 ML AMP NEB SCH ×3 (07:21→15:47)
[2016-10-25] MEDS: FOLIC ACID 1 MG TAB GTB SCH (08:55)
[2016-10-25] MEDS: SENNA TAB GTB SCH (08:55)
[2016-10-25] MEDS: SEVELAMER CARBONATE 0.8 GM PKT GTB SCH (08:55)
[2016-10-25] MEDS: MULTIVIT/CA CARB/B CMPLX/FA TAB GTB SCH (08:55)
[2016-10-25] MEDS: LEVETIRACETAM (100 MG/ML) 5ML CUP GTB SCH (08:55)
[2016-10-25] MEDS: AMLODIPINE 5 MG TAB GTB SCH (08:59)
[2016-10-25] MEDS: METOPROLOL 25 MG TAB GTB SCH (08:59)
--- NOTE | 2016-10-25 10:06 | PN ---
DATE: 10/25/2016 SUBJECTIVE: The patient is stable. No acute events overnight. The patient is scheduled for hemodi alysis today. OBJECTIVE: VITAL SIGNS: Blood pressure 168/73, respirations 18, pulse 75, temperature 97.3. HEENT: Head is normocephalic. NECK: Supple. HEART: Regular rate. LUNGS: Showed diminished breath sounds at the base. ABDOMEN: Soft, nontender to palpation. No rebound or guarding. EXTREMITIES: Negative for clubbing or cyanosis. No edema. DERMATOLOGIC: No rashes. MUSCULOSKELETAL: Have no joint effusion. NEUROLOGIC: No change in exam. MEDICATIONS: The patient's medications have been reviewed. LABORATORY DATA: Has been reviewed. The patient had a sodium of 141, potassium 3.2, chloride 56, c reatinine 4.4, magnesium 2.7. ASSESSMENT AND PLAN: 1. End-stage renal disease. Plan for dialysis today for 3 hours on a 4K bath, calcium 2.5. 2. Anemia. Continue to monitor hemoglobin and hematocrit levels. Continue Epogen. 3. Mineral bone disorder. Continue to monitor calcium and phosphorus levels. 4. Hyponatremia. Improved. 5. Chronic respiratory failure. Status post trach. Continue to monitor. 6. Diabetes. Continue Accu-Cheks and insulin sliding scale. 7. Chronic encephalopathy. No change. 8. Seizure disorder. Continue the current medical management. 9. Status post sepsis. 10. Status post intracranial bleed. Dictated By: MARYURI WALLER/FRANCES Conf#: [id number] DID#: [id number]
[2016-10-25] MEDS ORDERED: HEPARIN 1000 UNITS/ML 10 ML INJ CATHETER ONE (12:00)
--- NOTE | 2016-10-25 12:46 | DS ---
Date/Time of Note Date/Time of Note DATE: 10/25/16 TIME: 12:46 Discharge Summary Admission/Discharge Info Admit Date/Time Aug 29, 2016 at 16:21 Discharge Date/Time Hospital Course No acute events overnight, no fever no diarrhea per RN. Assessment/Plan - S/p sepsis - S/p HCAP. - End-stage renal disease on hemodialysis. Continue hemodialysis per nephrology. Dr. Sales is following in nephrology consultation. - Hypertension. Continue metoprolol and hydralazine. - Diabetes mellitus. Continue Levemir and NovoLog per mild algorithm sliding scale. - Anemia of chronic disease, no indication for transfusion, continue Epogen. - S/p acute on chronic encephalopathy. - History of nontraumatic intracranial bleed, status post craniotomy. - Chronic respiratory failure with tracheostomy. - Possible seizure disorder. Continue Keppra. Further recommendations based on clinical course. Plan of care discussed with Dr. Godinez. Home Meds Reported Medications Zolpidem Tartrate* (Zolpidem Tartrate*) 5 Mg Tablet, 5 MG G-TUBE QHS Y for INSOMNIA, #30 TAB For Insomnia m/b inability to Sleep informed consent obtained by 08/29/16 Levalbuterol Hcl* (Levalbuterol Hcl*) 0.63 Mg/3 Ml Vial.neb, 0.63 MG INHALATION FOUR TIMES DAILY Y for WHEEZING AND SOB, VIAL 08/29/16 Levalbuterol* (Xopenex*) 0.63 Mg/3 Ml Nebu, 0.63 MG HHN Q2H Y for WHEEZING AND SOB, EA 08/29/16 Sevelamer Carbonate* (Renvela*) 0.8 Gm Powd.pack, 0.8 GM G-TUBE WITH MEALS for HIGH PHOSPHOROUS, PACKET 08/29/16 Sennosides* (Senna Lax*) 8.6 Mg Tablet, 1 TAB G-TUBE DAILY for BOWEL MANAGEMENT , TAB HOLD FOR LOOSE STOOLS 08/29/16 Multivit/Ca Carb/B Cmplx/Fa* (Leah-Juan Jose*) 1 Tab Tab, 1 TAB G-TUBE DAILY for SUPPLEMENT, TAB 08/29/16 Protein Supplement (Promod) 946 Ml Liquid, 30 ML G-TUBE TID for LOW ALBUMIN 08/29/16 Ondansetron Hcl* (Ondansetron Hcl* Liq) 4 Mg/5 Ml Solution, 5 ML PO Q6H Y for PRN NV 08/29/16 Omeprazole* (Omeprazole*) 20 Mg Capsule.dr, 20 MG G-TUBE DAILY for GERD, #60 CAP 08/29/16 Magnesium Hydroxide* (Milk Of Magnesia*) 400 Mg/5 Ml Oral.susp, 30 ML G-TUBE DAILY AT BEDTIME Y for CONSTIPATION, ML 08/29/16 Metoprolol Tartrate* (Lopressor*) 25 Mg Tab, 25 MG G-TUBE BID for HTN, #60 TAB Hold forSBP less than 110 or HR less than 60 08/29/16 Mag Hydrox/Al Hydrox/Simeth (ALUM-MAG HYDROXIDE-SIMETH LIQ) 360 Ml Oral.susp, 30 ML G-TUBE Q6 for INDIGESTION 08/29/16 Levetiracetam* (Keppra* (Ped)) 100 Mg/Ml Liq, 5 ML G-TUBE BID for SEIZURES for 30 Days, BOTTLE 08/29/16 Insulin Human Regular (Novolin-R U-100) 100 Unit/Ml Soln, 0 SC SLIDING SCALE AC , EA Inject as per sliding scale: If 71-150=0 unit; 151-200=2 units; 201-250= 4 units ; 251-300= 6 uints; 301-350=8 units; 351-400= 10 units If BS>400, Give 12 units and CallMD, Subcutaneosly two times a day for DM with lancets and test strips. 08/29/16 Insulin Detemir (Levemir) 100 Unit/1 Ml Vial, 8 UNIT SC at Bedtimefor DM, VIAL 08/29/16 Hydralazine Hcl* (Hydralazine Hcl*) 50 Mg Tab, 50 MG G-TUBE Q8 for HTN, #120 TAB Holf for SBP less than 110 or HR les than 60 08/29/16 Hydralazine Hcl* (Hydralazine Hcl*) 25 Mg Tab, 25 MG G-TUBE Q6 Y for HTN, #120 TAB Give SBP>160 OR DIASTOLIC BP >95 08/29/16 Folic Acid* (Folic Acid*) 1 Mg Tablet, 1 MG G-TUBE DAILY for ANEMIA, TAB 08/29/16 Doxazosin Mesylate* (Doxazosin Mesylate*) 2 Mg Tablet, 2 MG G-TUBE QHS for HTN, TAB Hold for SBP less than 110 and HR less than 60 08/29/16 Clonidine Hcl* (Clonidine Hcl*) 0.1 Mg Tab, 0.1 MG G-TUBE DAILY Y for HTN, TAB Hold for SBP less than 110 or HR less than 60 08/29/16 Amlodipine Besylate* (Amlodipine Besylate*) 5 Mg Tablet, 5 MG G-TUBE DAILY for HTN, #30 TAB HOLD FOR SBPLESS THAN 10 OR HR LESS THAN 60 08/29/16 Primary Care Provider Javier Godinez MD Pending Labs Laboratory Tests Test 10/25/16 05:10 Sodium Level 141mmol/L (135-144) Potassium Level 3.2mmol/L (3.5-5.1) Chloride Level 98mmol/L (97-110) Carbon Dioxide Level 33mmol/L (21-31) Anion Gap 13 (8-16) Blood Urea Nitrogen 57mg/dl (7-20) Creatinine 4.14mg/dl (0.61-1.24) Glucose Level 103mg/dl (70-220) Calcium Level 10.2mg/dl (8.4-10.2) Phosphorus Level 3.2mg/dl (2.5-4.9) Magnesium Level 2.7mg/dl (1.7-2.5) CANDY JUARZE Oct 25, 2016 12:46
== END 2016-10-25 16:15 | DRG 870 ==
LOC: E/R 13:40 → TEL 16:21 → MS2 09-06 02:42
PROVIDERS: ADMIT Internal Medicine; ATTEND Internal Medicine
PROC: 5A1955Z Respiratory Ventilation, Greater than 96 Consecutive Hours (ICD-10-PCS; principal; 2016-08-29)
PROC: 5A1D60Z (ICD-10-PCS; 2016-08-30)
PROC: 30233N1 Transfusion of Nonautologous Red Blood Cells into Peripheral Vein, Percutaneous Approach (ICD-10-PCS; 2016-10-03)
DX: A41.9 Sepsis, unspecified organism (principal); G93.40 Encephalopathy, unspecified; L89.152 Pressure ulcer of sacral region, stage 2; J15.1 Pneumonia due to Pseudomonas; J96.10 Chronic respiratory failure, unspecified whether with hypoxia or hypercapnia; N18.6 End stage renal disease; I12.0 Hypertensive chronic kidney disease with stage 5 chronic kidney disease or end stage renal disease; E87.1 Hypo-osmolality and hyponatremia; I69.951 Hemiplegia and hemiparesis following unspecified cerebrovascular disease affecting right dominant side; K92.1 Melena; R71.0 Precipitous drop in hematocrit; Z93.0 Tracheostomy status; Z99.2 Dependence on renal dialysis; D64.9 Anemia, unspecified; Z79.4 Long term (current) use of insulin; R13.10 Dysphagia, unspecified; J20.9 Acute bronchitis, unspecified; G40.909 Epilepsy, unspecified, not intractable, without status epilepticus; E11.9 Type 2 diabetes mellitus without complications; D63.1 Anemia in chronic kidney disease; Z93.1 Gastrostomy status; Z87.891 Personal history of nicotine dependence; H10.9 Unspecified conjunctivitis; Z85.46 Personal history of malignant neoplasm of prostate; R41.82 Altered mental status, unspecified; R40.2434 Glasgow coma scale score 3-8, 24 hours or more after hospital admission; L89.312 Pressure ulcer of right buttock, stage 2
CPT/HCPCS: 36430; 70450; 70551; 71010; 80048; 80053; 80202; 81001; 81003; 82140; 82270; 82962; 83036; 83605; 83735; 83880; 83970; 84100; 84134; 84145; 84484; 85025; 85610; 85730; 86644; 86850; 86900; 86901; 86920; 87040; 87070; 87081; 87086; 87275; 87276; 87279; 87280; 87502; 90935; 93005; 94003; 94640; 94664; 96374; 96375; 97110; 97162; 97530; A4310; J0692; J1644; J1815; J2185; J3370; J3480; J7050; P9016; Q4081

== ENCOUNTER 2016-10-30 14:51 | Inpatient (IN) | payer MEDICARE, MEDICAID ==
[~2016-10-30] VITALS: Ht 172.7 cm; Wt 57.5 kg
[~2016-10-30 14:51] MED LIST changes: +AMLO-145 G-TUBE; -BARIUM SULFATE 135 ML (E-Z HD) PO ONE; +CLON-379 G-TUBE; +DOXA2TAB G-TUBE; +FOLI-49 G-TUBE; +HYDR-3671 G-TUBE; +HYDR-3672 G-TUBE; +KEP100S G-TUBE; +LEVA0.6312 HHN; +LEVA0.634 INHALATION; +LEVEM SC; +MAG360OR42 G-TUBE; +MAGN400O4 G-TUBE; +METO-448 G-TUBE; +NEPH G-TUBE; +PROT946L G-TUBE; +SEVE0.8P G-TUBE; +SS SC; +ZOLP5TAB7 G-TUBE
[2016-10-30 15:05] VITALS: Ht 172.7 cm; Wt 57.5 kg
--- NOTE | 2016-10-30 15:09 | ERA ---
ER Documentation Chief Complaint Date/Time DATE: 10/30/16 TIME: 15:09 Chief Complaint Pt BIB ambulance for HD and blood in stool. HPI The patient is a 66-year-old male, presenting with a bloody bowel movement today and he also required dialysis. His last dialysis was 4 days ago. 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 He normally had dialysis on Saturday and Saturday Past surgical history: Tracheostomy, right chest dialysis catheter, G-tube ROS All systems reviewed and are negative except as per history of present illness. Medications Home Meds Reported Medications Insulin Human Regular (Novolin-R U-100) 100 Unit/Ml Soln, 0 SC AC LUNCH DINNER Y for SLIDING SCALE, EA 75-150=0 UNITS,151-200=2 UNITS,201-250=4 UNITS,251-300=6 UNITS, 301-350=8 UNITS,351-400=10 UNITS,IF>400=12 UNITS AND CALL MD. START DATE-10/25/16 STOP DATE-11/18/16 10/30/16 Insulin Detemir (Levemir Flextouch) 100 Unit/1 Ml Insuln.pen, 8 UNIT SQ QHS START DATE-10/25/16 STOP DATE-11/07/16 10/30/16 Hydralazine Hcl* (Hydralazine Hcl*) 50 Mg Tab, 50 MG GTB Q8, #90 TAB HOLD FOR SBP<110 START DATE-10/25/16 STOP DATE -11/07/16 10/30/16 Sevelamer Carbonate* (Renvela*) 800 Mg Tablet, 0.8 GM GTB WITH MEALS, TAB START DATE-10/25/16 STOP DATE-11/18/16 10/30/16 Sennosides* (Senna Lax*) 8.6 Mg Tablet, 1 TAB GTB Q9AM, TAB START DATE-10/25/16 STOP DATE 11/18/16 10/30/16 Multivit/Ca Carb/B Cmplx/Fa* (Leah-Juan Jose*) 1 Tab Tab, 1 TAB GTB Q9AM, TAB START DATE-10/25/16 STOP DATE-11/18/16 10/30/16 Folic Acid* (Folic Acid*) 1 Mg Tablet, 1 MG GTB Q9AM, TAB START DATE-10/25/16 STOP DATE 11/18/16 10/30/16 Zolpidem Tartrate* (Zolpidem Tartrate*) 5 Mg Tablet, 5 MG GTB QHS Y for INSOMNIA , #30 TAB START DATE-10/25/16 STOP DATE-11/07/16 10/30/16 Magnesium Hydroxide* (Milk Of Magnesia*) 400 Mg/5 Ml Oral.susp, 30 ML GTB Q24H for CONSTIPATION, ML START DAY-10/25/16 STOP DAY-11/07/16 10/30/16 Ondansetron Hcl* (Ondansetron Hcl*) 4 Mg Tablet, 4 MG GTB Q6H Y for NAUSEA AND/ OR VOMITING, TAB START DAY-10/25/16 STOP DAY-11/07/16 10/30/16 Clonidine Hcl* (Clonidine Hcl*) 0.1 Mg Tab, 0.1 MG GTB Q24H Y for SBP>160, TAB START DAY-10/25/16 STOP DAY-11/07/16 10/30/16 Acetaminophen* (Tylenol*) 325 Mg Tablet, 650 MG GTB Q4H Y for MODERATE PAIN 4-, TAB START DAY-10/25/16 STOP DAY-11/07/16 10/30/16 Acetaminophen* (Acetaminophen*) 325 Mg Tablet, 325 MG GTB Q4H Y for MILD PAIN LEVEL 1-3, #30 TAB START DAY-10/25/16 STOP DAY-11/07/16 10/30/16 Metoprolol Tartrate* (Lopressor*) 25 Mg Tab, 25 MG GTB BID, #60 TAB HOLD FOR SBP<110 OR HR<60 START DAY-10/25/16 STOP JOSE R-11/07/16 10/30/16 Doxazosin Mesylate* (Cardura*) 2 Mg Tablet, 2 MG GTB QHS, #30 TAB 10/30/16 Lansoprazole* (Lansoprazole*) 30 Mg Capsule.dr, 30 MG GTB Q6AM, CAP 10/30/16 Levetiracetam* (Keppra* (Ped)) 100 Mg/Ml Liq, 5 ML GTB BID for 30 Days, BOTTLE 6/27/17 Discontinued Reported Medications Zolpidem Tartrate* (Zolpidem Tartrate*) 5 Mg Tablet, 5 MG G-TUBE QHS Y for INSOMNIA, #30 TAB For Insomnia m/b inability to Sleep informed consent obtained by 08/29/16 Levalbuterol Hcl* (Levalbuterol Hcl*) 0.63 Mg/3 Ml Vial.neb, 0.63 MG INHALATION FOUR TIMES DAILY Y for WHEEZING AND SOB, VIAL 08/29/16 Levalbuterol* (Xopenex*) 0.63 Mg/3 Ml Nebu, 0.63 MG HHN Q2H Y for WHEEZING AND SOB, EA 08/29/16 Sevelamer Carbonate* (Renvela*) 0.8 Gm Powd.pack, 0.8 GM G-TUBE WITH MEALS for HIGH PHOSPHOROUS, PACKET 08/29/16 Multivit/Ca Carb/B Cmplx/Fa* (Leah-Juan Jose*) 1 Tab Tab, 1 TAB G-TUBE DAILY for SUPPLEMENT, TAB 08/29/16 Protein Supplement (Promod) 946 Ml Liquid, 30 ML G-TUBE TID for LOW ALBUMIN 08/29/16 Magnesium Hydroxide* (Milk Of Magnesia*) 400 Mg/5 Ml Oral.susp, 30 ML G-TUBE DAILY AT BEDTIME Y for CONSTIPATION, ML 08/29/16 Metoprolol Tartrate* (Lopressor*) 25 Mg Tab, 25 MG G-TUBE BID for HTN, #60 TAB Hold forSBP less than 110 or HR less than 60 08/29/16 Mag Hydrox/Al Hydrox/Simeth (ALUM-MAG HYDROXIDE-SIMETH LIQ) 360 Ml Oral.susp, 30 ML G-TUBE Q6 for INDIGESTION 08/29/16 Levetiracetam* (Keppra* (Ped)) 100 Mg/Ml Liq, 5 ML G-TUBE BID for SEIZURES for 30 Days, BOTTLE 08/29/16 Insulin Human Regular (Novolin-R U-100) 100 Unit/Ml Soln, 0 SC SLIDING SCALE AC , EA Inject as per sliding scale: If 71-150=0 unit; 151-200=2 units; 201-250= 4 units ; 251-300= 6 uints; 301-350=8 units; 351-400= 10 units If BS>400, Give 12 units and CallMD, Subcutaneosly two times a day for DM with lancets and test strips. 08/29/16 Insulin Detemir (Levemir) 100 Unit/1 Ml Vial, 8 UNIT SC at Bedtimefor DM, VIAL 08/29/16 Hydralazine Hcl* (Hydralazine Hcl*) 50 Mg Tab, 50 MG G-TUBE Q8 for HTN, #120 TAB Holf for SBP less than 110 or HR les than 60 08/29/16 Hydralazine Hcl* (Hydralazine Hcl*) 25 Mg Tab, 25 MG G-TUBE Q6 Y for HTN, #120 TAB Give SBP>160 OR DIASTOLIC BP >95 08/29/16 Folic Acid* (Folic Acid*) 1 Mg Tablet, 1 MG G-TUBE DAILY for ANEMIA, TAB 08/29/16 Doxazosin Mesylate* (Doxazosin Mesylate*) 2 Mg Tablet, 2 MG G-TUBE QHS for HTN, TAB Hold for SBP less than 110 and HR less than 60 08/29/16 Clonidine Hcl* (Clonidine Hcl*) 0.1 Mg Tab, 0.1 MG G-TUBE DAILY Y for HTN, TAB Hold for SBP less than 110 or HR less than 60 08/29/16 Amlodipine Besylate* (Amlodipine Besylate*) 5 Mg Tablet, 5 MG G-TUBE DAILY for HTN, #30 TAB HOLD FOR SBPLESS THAN 10 OR HR LESS THAN 60 08/29/16 Sennosides* (Senna Lax*) 8.6 Mg Tablet, 1 TAB G-TUBE DAILY for BOWEL MANAGEMENT , TAB HOLD FOR LOOSE STOOLS 08/29/16 Ondansetron Hcl* (Ondansetron Hcl* Liq) 4 Mg/5 Ml Solution, 5 ML PO Q6H Y for PRN NV 08/29/16 Omeprazole* (Omeprazole*) 20 Mg Capsule.dr, 20 MG G-TUBE DAILY for GERD, #60 CAP 08/29/16 Allergies Allergies: Coded Allergies: No Known Allergy (Unverified , 10/30/16) PMhx/Soc History of Surgery: Yes (Craniotomy, Tracheostomy, PEG) Hx Neurological Disorder: Yes (right-sided nontraumatic intracranial hemorrhage ) Hx Respiratory Disorders: Yes (Tracheostomy) Hx Cardiac Disorders: Yes (HTN) Hx Miscellaneous Medical Probl: Yes (see PT note) Hx Alcohol Use: No Hx Substance Use: No Hx Tobacco Use: No Physical Exam Vitals Vital Signs Date Time Temp Pulse Resp B/P Pulse Ox O2 Delivery O2 Flow Rate FiO2 10/30/16 20:00 97.6 62 18 144/61 100 Trach Collar 10/30/16 17:04 97.9 59 16 124/57 100 Trach Collar 10/30/16 15:05 97.9 59 18 108/55 100 Physical Exam Const: No acute distress. Head: Atraumatic. Eyes: Normal Conjunctiva. ENT: Normal External Ears, Nose and Mouth. Neck: Full range of motion. No meningismus. Resp: Clear to auscultation bilaterally. Cardio: Regular rate and rhythm. Abd: Soft, non distended, normal bowel sounds, non tender. G-tube Skin: No petechiae or rashes. Back: No midline or flank tenderness. Ext: No cyanosis, or edema. Neur: Limited due to his condition Psych: Unable to obtain due to his condition Result Diagram: 10/30/16 1540 10/30/16 1540 Results 24 hrs Laboratory Tests Test 10/30/16 15:40 White Blood Count 5.910^3/ul Red Blood Count 4.0710^6/ul Hemoglobin 12.2g/dl Hematocrit 36.6% Mean Corpuscular Volume 89.9fl Mean Corpuscular Hemoglobin 30.0pg Mean Corpuscular Hemoglobin Concent 33.3g/dl Red Cell Distribution Width 14.8% Platelet Count 31799^3/UL Mean Platelet Volume 9.8fl Neutrophils % 74.3% Lymphocytes % 13.4% Monocytes % 7.6% Eosinophils % 4.2% Basophils % 0.3% Nucleated Red Blood Cells % 0.0/100WBC Neutrophils # 4.410^3/ul Lymphocytes # 0.810^3/ul Monocytes # 0.510^3/ul Eosinophils # 0.310^3/ul Basophils # 0.010^3/ul Nucleated Red Blood Cells # 0.010^3/ul Prothrombin Time 13.3Sec Prothrombin Time Ratio 1.0 INR International Normalized Ratio 1.01 Activated Partial Thromboplast Time 33.3Sec Sodium Level 131mmol/L Potassium Level 5.2mmol/L Chloride Level 88mmol/L Carbon Dioxide Level 23mmol/L Anion Gap 25 Blood Urea Nitrogen 173mg/dl Creatinine 8.42mg/dl Glucose Level 80mg/dl Calcium Level 10.6mg/dl Total Bilirubin 0.0mg/dl Direct Bilirubin 0.00mg/dl Indirect Bilirubin 0.0mg/dl Aspartate Amino Transf (AST/SGOT) 23IU/L Alanine Aminotransferase (ALT/SGPT) 26IU/L Alkaline Phosphatase 160IU/L Total Protein 7.9g/dl Albumin 4.3g/dl Globulin 3.60g/dl Albumin/Globulin Ratio 1.19 Current Medications Medications (Trade) Dose Ordered Sig/Bairon Route PRN Reason Start Time Stop Time Status Last Admin Dose Admin Sodium Polystyrene Sulfonate (Kayexalate) 30 gm ONCE ONCE GTB 10/30/16 17:00 10/30/16 17:01 DC 10/30/16 17:00 Acetaminophen (Tylenol Liquid) 650 mg Q4H PRN GTB MODERATE PAIN 4-10/1310/30/16 19:30 Doxazosin Mesylate (Cardura) 2 mg QHS GTB 10/30/16 21:00 Folic Acid (Folic Acid) 1 mg DAILY GTB 10/31/16 09:00 Hydralazine HCl (Apresoline) 50 mg Q8 GTB 10/30/16 22:00 Insulin Detemir (Levemir) 8 unit QHS SC 10/30/16 21:00 Lansoprazole (Prevacid) 30 mg DAILY GTB 10/31/16 09:00 Levetiracetam (Keppra Liq (Ped)) 500 mg BID GTB 10/30/16 21:00 Multivit/Ca Carb/ B Cmplx/FA/Prenat (Leah-Juan Jose) 1 tab DAILY GTB 10/31/16 09:00 Ondansetron HCl (Zofran Tab) 4 mg Q6H PRN GTB NAUSEA AND/OR VOMITING 10/30/16 19:30 Sevelamer Carbonate (Renvela) 0.8 gm WITH MEALS GTB 10/31/16 08:00 Zolpidem Tartrate (Ambien) 5 mg QHS PRN GTB INSOMNIA 10/30/16 19:30 Miscellaneous Information 1 ea NOTE XX 10/30/16 19:30 Glucose (Glutose) 15 gm Q15M PRN PO DECREASED GLUCOSE 6/27/17 19:30 Glucose (Glutose) 22.5 gm Q15M PRN PO DECREASED GLUCOSE 10/30/16 19:30 Dextrose (D50w Syringe) 25 ml Q15M PRN IV DECREASED GLUCOSE 10/30/16 19:30 Dextrose (D50w Syringe) 50 ml Q15M PRN IV DECREASED GLUCOSE 10/30/16 19:30 Glucagon (Glucagen) 1 mg Q15M PRN IM DECREASED GLUCOSE 10/30/16 19:30 Glucose (Glutose) 15 gm Q15M PRN BUCCAL DECREASED GLUCOSE 10/30/16 19:30 Procedures/[place] [address] Radiology Main Line: [phone] DIAGNOSTIC IMAGING REPORT Patient: PEE MYERS : 1950 Age: 66 Sex: M MR #: [id number] DOS: 10/30/16 [facility] Ordering MD: JAVON HERNÁNDEZ MD Location: E/R Room/Bed: PROCEDURE: Chest x-ray CLINICAL INDICATION: Upper GI bleed TECHNIQUE: Chest single view COMPARISON: 09/11/2016 FINDINGS: Tracheostomy tube and right IJ dialysis catheter remain in place. There is stable mild cardiomegaly. The pulmonary vessels are normal in caliber. The lungs are clear. The costophrenic angles are sharp. The visualized bony thorax is unremarkable. IMPRESSION: 1. Tracheostomy tube and right IJ dialysis catheter remain in place. 2. Stable cardiomegaly 3. No CHF or pneumonia RPTAT: .Jama Duran MD, Date Time Electronically viewed and signed by .Jama Duran MD, MD on 10/30/2016 17:07 .W/ CC: JAVON HERNÁNDEZ MD EKG: Read by emergency physician Rate/Rhythm: Sinus bradycardia 58 beats/min QRS, ST, T-waves: No ST elevation, no T inversion Impression: EKG MEDICAL MAKING DECISION: The patient is a 66-year-old male, presenting with acute hyperkalemia, acute on chronic kidney disease requiring hemodialysis, acute hematochezia. He was treated with Kayexalate 30 g via G-tube The differential diagnoses for acute hematochezia considered include but are not limited to gastritis, peptic ulcer disease, esophageal varices, Isabella- Ram tear, carcinoma, polyp, hemorrhoid, fissure, diverticulosis, angiodysplasia. Critical Care: Time: 35 minutes excluding all billable procedures. Treatments/Evaluations: Close monitoring and treatment of unstable vital signs, cardiorespiratory, and neurologic status, while maintaining tight balance of fluid, respiratory, and cardiac interventions. Departure Diagnosis: Primary Impression: Acute kidney injury superimposed on chronic kidney disease Additional Impressions: Acute hyperkalemia Hematochezia Condition: Stable Comments I discussed the findings with the patient. I discussed the patient with his physician Dr. Dr. Godinez who was made aware of the lab, the treatment, the patient condition. The patient is admitted to telemetry at 4:50 PM Consultation: I also discussed the patient with the archivist economic history Dr. Floyd and Dr. Benitez regarding his condition that required emergent dialysis JAVON HERNÁNDEZ MD Oct 30, 2016 15:09
[2016-10-30 15:50] LABS: ADD SCAN DIFF NO
[2016-10-30 15:53] LABS: BASOPHILS % 0.3 % (0.0-2.0); EOSINOPHILS # 0.3 10^3/ul (0.0-0.5); EOSINOPHILS % 4.2 % (0.0-7.0); HEMATOCRIT 36.6 % (42.0-52.0); HEMOGLOBIN 12.2 g/dl (14.0-18.0); LYMPHOCYTES # 0.8 10^3/ul (0.8-2.9); LYMPHOCYTES % 13.4 % (15.0-51.0); MEAN CORPUSCULAR HGB CONC 33.3 g/dl (32.0-37.0); MEAN CORPUSCULAR VOLUME 89.9 fl (82.0-101.0); MEAN PLATELET VOLUME 9.8 fl (7.4-10.4); MONOCYTE # 0.5 10^3/ul (0.3-0.9); MONOCYTES % 7.6 % (0.0-11.0); NEUTROPHIL # 4.4 10^3/ul (1.6-7.5); NEUTROPHILS % 74.3 % (39.0-77.0); PLATELET COUNT 360 10^3/UL (140-415); RED BLOOD COUNT 4.07 10^6/ul (4.70-6.10); RED CELL DISTRIBUTION WIDTH 14.8 % (11.5-14.5); WHITE BLOOD COUNT 5.9 10^3/ul (4.8-10.8)
[2016-10-30 16:10] LABS: INR 1.01; PROTIME 13.3 Sec (12.2-14.2)
[2016-10-30 16:11] LABS: PARTIAL THROMBOPLASTIN TIME 33.3 Sec (25.0-35.0)
[2016-10-30 16:12] LABS: ALBUMIN 4.3 g/dl (3.3-4.9); ALBUMIN/GLOBULIN RATIO 1.19; CALCIUM 10.6 mg/dl (8.4-10.2); CREATININE 8.42 mg/dl (0.61-1.24); TOTAL PROTEIN 7.9 g/dl (6.1-8.1)
[2016-10-30 16:19] LABS: POTASSIUM 5.2 mmol/L (3.5-5.1)
[2016-10-30] MEDS ORDERED: KEP100S GTB (16:28)
[2016-10-30] MEDS ORDERED: LANS30CA GTB (16:29)
[2016-10-30] MEDS ORDERED: DOXA2TAB61 GTB (16:31)
[2016-10-30] MEDS ORDERED: METO-448 GTB (16:34)
[2016-10-30] MEDS ORDERED: ACET325T33 GTB (16:36)
[2016-10-30] MEDS ORDERED: ACET325T45 GTB (16:36)
[2016-10-30] MEDS ORDERED: CLON-379 GTB (16:39)
[2016-10-30] MEDS ORDERED: ONDA4TAB95 GTB (16:41)
[2016-10-30] MEDS ORDERED: MAGN400O4 GTB (16:42)
[2016-10-30] MEDS ORDERED: ZOLP5TAB7 GTB (16:43)
[2016-10-30] MEDS ORDERED: FOLI-49 GTB (16:45)
[2016-10-30] MEDS ORDERED: NEPH GTB (16:47)
[2016-10-30] MEDS ORDERED: SENN-53 GTB (16:49)
[2016-10-30] MEDS ORDERED: SEVE800T7 GTB (16:50)
[2016-10-30] MEDS ORDERED: HYDR-3672 GTB (16:52)
[2016-10-30] MEDS ORDERED: INSU100I27 SQ (16:54)
[2016-10-30] MEDS ORDERED: SS SC (16:59)
[2016-10-30] MEDS ORDERED: NA POLYST SULFON 15 GM/60 ML BTL GTB ONE (17:00)
--- NOTE | 2016-10-30 17:07 | RADRPT ---
PROCEDURE: Chest x-ray CLINICAL INDICATION: Upper GI bleed TECHNIQUE: Chest single view COMPARISON: 09/11/2016 FINDINGS: Tracheostomy tube and right IJ dialysis catheter remain in place. There is stable mild cardiomegaly . The pulmonary vessels are normal in caliber. The lungs are clear. The costophrenic angles are s harp. The visualized bony thorax is unremarkable. IMPRESSION: 1. Tracheostomy tube and right IJ dialysis catheter remain in place. 2. Stable cardiomegaly 3. No CHF or pneumonia RPTAT: HH .Jama Duran MD, Date Time Electronically viewed and signed by .Jama Duran MD, on 10/30/2016 17:07 .W/
--- NOTE | 2016-10-30 19:13 | HP ---
Date/Time of Note Date/Time of Note DATE: 10/30/16 TIME: 18:57 Assessment/Plan VTE Prophylaxis VTE Prophylaxis Intervention: SCD's Assessment/Plan Assessment/Plan - Hemodialysis dependent end-stage renal disease, patient needs urgent dialysis. Dr. Sales will be following patient in nephrology consultation. - Hyperkalemia secondary to ESRD, status post Kayexalate. - Rectal bleed, Dr Salter will see pt in GI consultation. - Seizure disorder, continue Keppra - Chronic respiratory failure with tracheostomy - Dysphagia with G-tube, continue G-tube feeding, aspiration precaution. - Diabetes mellitus -Hypertension. - Anemia of chronic disease. Hemoglobin is 12.2 on admission. Further recommendations based on clinical course. Plan of care discussed with Dr. Godinez. HPI/ROS Admit Date/Time Admit Date/Time Hx of Present Illness The patient is 66-year-old gentleman with past medical history positive for nontraumatic intracranial bleed, status post craniotomy, seizure disorder, chronic respiratory failure with tracheostomy currently weaned to T-tube, dysphagia with G-tube, diabetes mellitus, hypertension, hemodialysis dependent end-stage renal disease, anemia of chronic disease. Patient was treated for pneumonia and and sepsis secondary to pneumonia at previous admission, and was [facility] Patient was not able to undergo hemodialysis jail facility and patient was brought to the hospital was elevated above normal BUN and creatinine and hyperkalemia. Patient is also noted to have rectal bleed at jail facility, no fever nausea vomiting diarrhea were reported. ROS Unable to obtain due to patient's condition PMH/Family/Social Past Medical History Per HPI Past Surgical History Status post craniotomy status post tracheostomy status post G-tube placement Past Surgical Hx: other Family History Significant Family History: no pertinent family hx Social History Alcohol Use: none Smoking Status: Former smoker Drug Use: none Exam/Review of Systems Vital Signs Vitals Vital Signs Date Time Temp Pulse Resp B/P Pulse Ox O2 Delivery O2 Flow Rate FiO2 10/30/16 17:04 97.9 59 16 124/57 100 Trach Collar Exam Constitutional: alert, oriented Head: atraumatic, normocephalic Neck: non-tender, supple Respiratory: normal air movement Cardiovascular: nl pulses Gastrointestinal: non-tender, soft Musculoskeletal: muscle weakness Extremities: normal pulses Labs Result Diagram: 10/30/16 1540 10/30/16 1540 NOELLE JIMENEZ Oct 30, 2016 19:09
[2016-10-30] MEDS ORDERED: ZOLPIDEM 5 MG TAB GTB PRN (19:30)
[2016-10-30] MEDS ORDERED: GLUCOSE GEL 15 GRAM TUBE PO PRN ×2 (19:30)
[2016-10-30] MEDS ORDERED: ONDANSETRON 4 MG TAB GTB PRN (19:30)
[2016-10-30] MEDS ORDERED: ACETAMINOPHEN 650MG/20.3ML CUP GTB PRN (19:30)
[2016-10-30] MEDS ORDERED: GLUCAGON 1 MG INJ IM PRN (19:30)
[2016-10-30] MEDS ORDERED: DEXTROSE 50% 50 ML SYRINGE IV PRN ×2 (19:30)
[2016-10-30] MEDS ORDERED: GLUCOSE GEL 15 GRAM TUBE BUCCAL PRN (19:30)
[2016-10-30] MEDS ORDERED: DOXAZOSIN 2 MG TAB GTB SCH (21:00)
[2016-10-30] MEDS: INSULIN DETEMIR [LEVEMIR] 3ML CART SC SCH (21:00)
[2016-10-30] MEDS ORDERED: LEVETIRACETAM (100 MG/ML PO SYG) GTB SCH (21:00)
[2016-10-30] MEDS: DOXAZOSIN 1 MG TAB GTB SCH (21:32)
--- NOTE | 2016-10-30 21:33 | CONS ---
Date/Time of Note Date/Time of Note DATE: 10/30/16 TIME: 21:22 Assessment/Plan Assessment/Plan Chief Complaint/Hosp Course 1. End-stage renal disease. -pt last Hd on Saturday -plan for urgent hd for solute clearance and volume removal 2. Uremia. Plan for HD 3. Hyperkalemia. plan for Hd on 2 k bath 4. Anemia. Continue to monitor hemoglobin and hematocrit levels. Continue Epogen with hemodialysis. 5. Mineral bone disorder. Continue to monitor calcium and phosphorus levels. Continue phosphate binders. 6. Hypertension. Continue current blood pressure regimen. 7. s/p Sepsis secondary to pneumonia. s/p antibiotics 6. Chronic respiratory failure, status post tracheostomy, currently stable. 7. Diabetes. Continue current insulin regimen. 8. Chronic encephalopathy. No change. 9. Seizure disorder. Continue current medical management. 10. hyponatremia: Hd on 140 na bath 10. History of intracranial bleed Problems: Consultation Date/Type/Reason Admit Date/Time Reason for Consultation esrd, uremia Hx of Present Illness This is a 66-year-old male with a past medical history of end-stage renal disease on dialysis Saturday, Saturday, Saturday with access Perm-A-Cath. Last hemodialysis was last week. The patient has a history of chronic respiratory failure status post tracheostomy, dysphagia status post PEG, history of chronic encephalopathy, history of hypertension, diabetes [place] [facility] [place] and missing HD. Patient is also noted to have rectal bleed at prison facility, no fever nausea vomiting diarrhea were reported. Pt is confused, non-verbal. No reports of fever, vomiting, chest pain. Unable to do ROS pt is altered Past Medical History per HPI Past Surgical History Status post craniotomy status post tracheostomy status post G-tube placement -s/p permacath Past Surgical Hx: other Family History Significant Family History: no pertinent family hx Social History Alcohol Use: none Smoking Status: Former smoker Drug Use: none Exam/Review of Systems Vital Signs Vitals Vital Signs Date Time Temp Pulse Resp B/P Pulse Ox O2 Delivery O2 Flow Rate FiO2 10/30/16 20:00 97.6 62 18 144/61 100 Trach Collar Exam Constitutional: altered Head: atraumatic, normocephalic Neck: non-tender, supple Respiratory: normal air movement Cardiovascular: nl pulses Gastrointestinal: non-tender, soft Musculoskeletal: muscle weakness Extremities: normal pulses Results Result Diagram: 10/30/16 1540 10/30/16 1540 Results 24 hrs Laboratory Tests Test 10/30/16 15:40 White Blood Count 5.9 Red Blood Count 4.07 L Hemoglobin 12.2 L Hematocrit 36.6 L Mean Corpuscular Volume 89.9 Mean Corpuscular Hemoglobin 30.0 Mean Corpuscular Hemoglobin Concent 33.3 Red Cell Distribution Width 14.8 H Platelet Count 360 Mean Platelet Volume 9.8 Neutrophils % 74.3 Lymphocytes % 13.4 L Monocytes % 7.6 Eosinophils % 4.2 Basophils % 0.3 Nucleated Red Blood Cells % 0.0 Neutrophils # 4.4 Lymphocytes # 0.8 Monocytes # 0.5 Eosinophils # 0.3 Basophils # 0.0 Nucleated Red Blood Cells # 0.0 Prothrombin Time 13.3 Prothrombin Time Ratio 1.0 INR International Normalized Ratio 1.01 Activated Partial Thromboplast Time 33.3 Sodium Level 131 L Potassium Level 5.2 H Chloride Level 88 L Carbon Dioxide Level 23 Anion Gap 25 H Blood Urea Nitrogen 173 H Creatinine 8.42 H Glucose Level 80 Calcium Level 10.6 H Total Bilirubin 0.0 L Direct Bilirubin 0.00 Indirect Bilirubin 0.0 Aspartate Amino Transf (AST/SGOT) 23 Alanine Aminotransferase (ALT/SGPT) 26 Alkaline Phosphatase 160 H Total Protein 7.9 Albumin 4.3 Globulin 3.60 H Albumin/Globulin Ratio 1.19 Medications Medications Current Medications Acetaminophen (Tylenol Liquid) 650 mg Q4H PRN GTB MODERATE PAIN 4-6/10; Start 10/30/16 at 19:30 Doxazosin Mesylate (Cardura) 2 mg QHS GTB ; Start 10/30/16 at 21:00 Folic Acid (Folic Acid) 1 mg DAILY GTB ; Start 10/31/16 at 09:00 Hydralazine HCl (Apresoline) 50 mg Q8 GTB ; Start 10/30/16 at 22:00 Insulin Detemir (Levemir) 8 unit QHS SC ; Start 10/30/16 at 21:00 Lansoprazole (Prevacid) 30 mg DAILY GTB ; Start 10/31/16 at 09:00 Levetiracetam (Keppra Liq (Ped)) 500 mg BID GTB ; Start 10/30/16 at 21:00 Multivit/Ca Carb/ B Cmplx/FA/Prenat (Leah-Juan Jose) 1 tab DAILY GTB ; Start at 09:00 Ondansetron HCl (Zofran Tab) 4 mg Q6H PRN GTB NAUSEA AND/OR VOMITING; Start at 19:30 Zolpidem Tartrate (Ambien) 5 mg QHS PRN GTB INSOMNIA; Start 10/30/16 at 19:30 Miscellaneous Information 1 ea NOTE XX ; Start 10/30/16 at 19:30 Glucose (Glutose) 15 gm Q15M PRN PO DECREASED GLUCOSE; Start 10/30/16 at 19:30 Glucose (Glutose) 22.5 gm Q15M PRN PO DECREASED GLUCOSE; Start 10/30/16 at 19: 30 Dextrose (D50w Syringe) 25 ml Q15M PRN IV DECREASED GLUCOSE; Start 10/30/16 at 19:30 Dextrose (D50w Syringe) 50 ml Q15M PRN IV DECREASED GLUCOSE; Start 10/30/16 at 19:30 Glucagon (Glucagen) 1 mg Q15M PRN IM DECREASED GLUCOSE; Start 10/30/16 at 19:30 Glucose (Glutose) 15 gm Q15M PRN BUCCAL DECREASED GLUCOSE; Start 10/30/16 at 19 :30 MARYURI RYAN DO Oct 30, 2016 21:33
[2016-10-30 22:15] VITALS: BP 166/56; PULSE 64
[2016-10-30 22:39] VITALS: BP 138/87; PULSE 64
[2016-10-30 23:00] VITALS: BP 115/72; PULSE 65
[2016-10-30 23:23] VITALS: TEMP 97
[2016-10-30 23:30] VITALS: BP 115/62; PULSE 65
[2016-10-31] VITALS (17 sets, daily range): BP systolic 107–165; BP diastolic 51–85; PULSE 63–82; RESP 16–21
[2016-10-31] MEDS ORDERED: PENDING SANTYL ORDER FOR WOUND CARE XX PRN (08:00)
[2016-10-31] MEDS: LANSOPRAZOLE 30 MG CAP GTB SCH (09:03)
[2016-10-31] MEDS: FOLIC ACID 1 MG TAB GTB SCH (09:03)
[2016-10-31] MEDS: MULTIVIT/CA CARB/B CMPLX/FA TAB GTB SCH (09:03)
[2016-10-31 09:08] LABS: MAGNESIUM 2.8 mg/dl (1.7-2.5); PHOSPHORUS 3.7 mg/dl (2.5-4.9)
[2016-10-31 09:48] LABS: CALCIUM 9.3 mg/dl (8.4-10.2); CREATININE 5.47 mg/dl (0.61-1.24)
[2016-10-31 09:51] LABS: POTASSIUM 2.6 mmol/L (3.5-5.1)
--- NOTE | 2016-10-31 10:47 | PN ---
Date/Time of Note Date/Time of Note DATE: 10/31/16 TIME: 10:45 Assessment/Plan VTE Prophylaxis VTE Prophylaxis Intervention: ambulation Lines/Catheters [facility] (from [facility] Saline Lock Urinary Cath still in place: No Assessment/Plan Chief Complaint/Hosp Course 1. End-stage renal disease. -s/p HD yesterday -plan for daily for solute clearance and volume removal 2. Uremia. cont HD 3. Hyperkalemia. improved 4. Anemia. Continue to monitor hemoglobin and hematocrit levels. Continue Epogen with hemodialysis. 5. Mineral bone disorder. Continue to monitor calcium and phosphorus levels. Continue phosphate binders. 6. Hypertension. Continue current blood pressure regimen. 7. s/p Sepsis secondary to pneumonia. s/p antibiotics 6. Chronic respiratory failure, status post tracheostomy, currently stable. 7. Diabetes. Continue current insulin regimen. 8. Chronic encephalopathy. No change. 9. Seizure disorder. Continue current medical management. 10. hyponatremia: Hd on 140 na bath 10. History of intracranial bleed Problems: Subjective 24 Hr Interval Summary Free Text/Dictation remains confused, HD planned for today Exam/Review of Systems Vital Signs Vitals Vital Signs Date Time Temp Pulse Resp B/P Pulse Ox O2 Delivery O2 Flow Rate FiO2 10/31/16 08:00 67 10/31/16 07:34 96 5.0 28 10/31/16 07:34 18 Aerosol T Tube 10/31/16 03:38 97.6 146/85 Intake and Output 10/30/16 10/30/16 10/31/16 15:00 23:00 07:00 Intake Total 400 ml 240 ml Output Total 900 ml Balance -500 ml 240 ml Exam Constitutional: altered Head: atraumatic, normocephalic Neck: non-tender, supple Respiratory: normal air movement Cardiovascular: nl pulses Gastrointestinal: non-tender, soft Musculoskeletal: muscle weakness Extremities: normal pulses Results Result Diagram: 10/30/16 1540 10/31/16 0630 Results 24 hrs Laboratory Tests Test 10/30/16 15:40 10/30/16 21:42 10/31/16 06:30 10/31/16 06:33 White Blood Count 5.9 Red Blood Count 4.07 L Hemoglobin 12.2 L Hematocrit 36.6 L Mean Corpuscular Volume 89.9 Mean Corpuscular Hemoglobin 30.0 Mean Corpuscular Hemoglobin Concent 33.3 Red Cell Distribution Width 14.8 H Platelet Count 360 Mean Platelet Volume 9.8 Neutrophils % 74.3 Lymphocytes % 13.4 L Monocytes % 7.6 Eosinophils % 4.2 Basophils % 0.3 Nucleated Red Blood Cells % 0.0 Neutrophils # 4.4 Lymphocytes # 0.8 Monocytes # 0.5 Eosinophils # 0.3 Basophils # 0.0 Nucleated Red Blood Cells # 0.0 Prothrombin Time 13.3 Prothrombin Time Ratio 1.0 INR International Normalized Ratio 1.01 Activated Partial Thromboplast Time 33.3 Sodium Level 131 L 132 L Potassium Level 5.2 H 2.6 #*L Chloride Level 88 L 90 L Carbon Dioxide Level 23 27 Anion Gap 25 H 18 #H Blood Urea Nitrogen 173 H 103 #H Creatinine 8.42 H 5.47 #H Glucose Level 80 138 # Calcium Level 10.6 H 9.3 Total Bilirubin 0.0 L Direct Bilirubin 0.00 Indirect Bilirubin 0.0 Aspartate Amino Transf (AST/SGOT) 23 Alanine Aminotransferase (ALT/SGPT) 26 Alkaline Phosphatase 160 H Total Protein 7.9 Albumin 4.3 Globulin 3.60 H Albumin/Globulin Ratio 1.19 Bedside Glucose 103 Phosphorus Level 3.7 Magnesium Level 2.8 H Medications Medications Current Medications Acetaminophen (Tylenol Liquid) 650 mg Q4H PRN GTB MODERATE PAIN 4-610; Start 10/30/16 at 19:30 Folic Acid (Folic Acid) 1 mg DAILY GTB Last administered on 10/31/16 09:03; Admin Dose 1 MG; Start 10/31/16 at 09:00 Hydralazine HCl (Apresoline) 50 mg Q8 GTB Last administered on 10/31/16 05:35 ; Admin Dose 50 MG; Start 10/30/16 at 22:00 Insulin Detemir (Levemir) 8 unit QHS SC ; Start 10/30/16 at 21:00 Lansoprazole (Prevacid) 30 mg DAILY GTB Last administered on 10/31/16 09:03; Admin Dose 30 MG; Start 10/31/16 at 09:00 Multivit/Ca Carb/ B Cmplx/FA/Prenat (Leah-Juan Jose) 1 tab DAILY GTB Last administered on 10/31/16 09:03; Admin Dose 1 TAB; Start 10/31/16 at 09:00 Ondansetron HCl (Zofran Tab) 4 mg Q6H PRN GTB NAUSEA AND/OR VOMITING; Start at 19:30 Zolpidem Tartrate (Ambien) 5 mg QHS PRN GTB INSOMNIA; Start 10/30/16 at 19:30 Miscellaneous Information 1 ea NOTE XX ; Start 10/30/16 at 19:30 Glucose (Glutose) 15 gm Q15M PRN PO DECREASED GLUCOSE; Start 10/30/16 at 19:30 Glucose (Glutose) 22.5 gm Q15M PRN PO DECREASED GLUCOSE; Start 10/30/16 at 19: 30 Dextrose (D50w Syringe) 25 ml Q15M PRN IV DECREASED GLUCOSE; Start 10/30/16 at 19:30 Dextrose (D50w Syringe) 50 ml Q15M PRN IV DECREASED GLUCOSE; Start 10/30/16 at 19:30 Glucagon (Glucagen) 1 mg Q15M PRN IM DECREASED GLUCOSE; Start 10/30/16 at 19:30 Glucose (Glutose) 15 gm Q15M PRN BUCCAL DECREASED GLUCOSE; Start 10/30/16 at 19 :30 Doxazosin Mesylate (Cardura) 2 mg QHS GTB ; Start 10/30/16 at 21:32 Miscellaneous Information (Pending [facility] Order For Wound Care) This patient flores... PRN PRN XX WOUND CARE; Start 10/31/16 at 08:00 Levetiracetam (Keppra Liquid) 500 mg BID GTB ; Start 10/31/16 at 10:00 MARYURI RYAN DO Oct 31, 2016 10:47
[2016-10-31] MEDS: LEVETIRACETAM (100 MG/ML) 5ML CUP GTB SCH ×2 (10:58→20:17)
[2016-10-31] MEDS: SEVELAMER CARBONATE 0.8 GM PKT GTB SCH ×3 (10:58→18:14)
[2016-10-31 13:32] LABS: ADD SCAN DIFF NO
[2016-10-31 13:33] LABS: ABNORMAL IP MESSAGE 1; BASOPHILS % 0.5 % (0.0-2.0); EOSINOPHILS # 0.1 10^3/ul (0.0-0.5); EOSINOPHILS % 3.2 % (0.0-7.0); HEMATOCRIT 32.4 % (42.0-52.0); LYMPHOCYTES # 0.5 10^3/ul (0.8-2.9); LYMPHOCYTES % 10.8 % (15.0-51.0); MEAN CORPUSCULAR HEMOGLOBIN 30.2 pg (29.0-33.0); MEAN PLATELET VOLUME 9.4 fl (7.4-10.4); MONOCYTE # 0.4 10^3/ul (0.3-0.9); MONOCYTES % 9.2 % (0.0-11.0); NEUTROPHIL # 3.4 10^3/ul (1.6-7.5); NEUTROPHILS % 76.1 % (39.0-77.0); PLATELET COUNT 281 10^3/UL (140-415); RED BLOOD COUNT 3.64 10^6/ul (4.70-6.10); RED CELL DISTRIBUTION WIDTH 14.7 % (11.5-14.5); WHITE BLOOD COUNT 4.4 10^3/ul (4.8-10.8)
[2016-10-31 13:53] LABS: CALCIUM 9.1 mg/dl (8.4-10.2); CREATININE 4.06 mg/dl (0.61-1.24)
[2016-10-31 13:58] LABS: POTASSIUM 2.8 mmol/L (3.5-5.1)
[2016-10-31] MEDS: LACTULOSE 30ML CUP GTB SCH ×3 (14:55→20:17)
[2016-10-31] MEDS ORDERED: POTASSIUM CHLORIDE 20 MEQ POWDER FOR ORAL SOLN GTB ONE (15:00)
[2016-10-31] MEDS ORDERED: PEG/ELECTROLYTES 4L BTL PO ONE (16:30)
[2016-10-31 16:36] LABS: HAAIG REFLEX REFLEX FILED
--- NOTE | 2016-10-31 17:59 | PN ---
Date/Time of Note Date/Time of Note DATE: 10/31/16 TIME: 17:56 Assessment/Plan VTE Prophylaxis VTE Prophylaxis Intervention: SCD's Lines/Catheters IV Catheter Type (from [facility]): Saline Lock Urinary Cath still in place: No Assessment/Plan Chief Complaint/Hosp Course Assessment/Plan - Hemodialysis dependent end-stage renal disease. Dr. Sales is following patient in nephrology consultation. - Hyperkalemia secondary to ESRD on admission, status post Kayexalate, and hemodialysis, today potassium is 2.8, replaced. - Rectal bleed, Dr Salter is following in GI consultation. - Seizure disorder, continue Keppra - Chronic respiratory failure with tracheostomy - Dysphagia with G-tube, continue G-tube feeding, aspiration precaution. - Diabetes mellitus - Hypertension. - Anemia of chronic disease. Further recommendations based on clinical course. Plan of care discussed with Dr. Godinez. Problems: Exam/Review of Systems Vital Signs Vitals Vital Signs Date Time Temp Pulse Resp B/P Pulse Ox O2 Delivery O2 Flow Rate FiO2 10/31/16 16:00 82 10/31/16 15:58 97.9 16 155/72 97 10/31/16 13:57 5.0 28 10/31/16 13:57 Aerosol T Tube Intake and Output 10/30/16 10/30/16 10/31/16 15:00 23:00 07:00 Intake Total 400 ml 240 ml Output Total 900 ml Balance -500 ml 240 ml Exam Constitutional: alert, oriented Head: atraumatic, normocephalic Neck: non-tender, supple Respiratory: normal air movement Cardiovascular: nl pulses Gastrointestinal: non-tender, soft Musculoskeletal: muscle weakness Extremities: normal pulses Results Result Diagram: 10/31/16 1315 10/31/16 1315 Results 24 hrs Laboratory Tests Test 10/30/16 21:42 10/31/16 06:30 10/31/16 06:33 10/31/16 13:15 Bedside Glucose 103 Sodium Level 132 L 132 L Potassium Level 2.6 #*L 2.8 *L Chloride Level 90 L 90 L Carbon Dioxide Level 27 30 Anion Gap 18 #H 15 Blood Urea Nitrogen 103 #H 64 #H Creatinine 5.47 #H 4.06 #H Glucose Level 138 # 93 # Calcium Level 9.3 9.1 Phosphorus Level 3.7 Magnesium Level 2.8 H White Blood Count 4.4 #L Red Blood Count 3.64 L Hemoglobin 11.0 L Hematocrit 32.4 L Mean Corpuscular Volume 89.0 Mean Corpuscular Hemoglobin 30.2 Mean Corpuscular Hemoglobin Concent 34.0 Red Cell Distribution Width 14.7 H Platelet Count 281 # Mean Platelet Volume 9.4 Neutrophils % 76.1 Lymphocytes % 10.8 L Monocytes % 9.2 Eosinophils % 3.2 Basophils % 0.5 Nucleated Red Blood Cells % 0.0 Neutrophils # 3.4 Lymphocytes # 0.5 L Monocytes # 0.4 Eosinophils # 0.1 Basophils # 0.0 Nucleated Red Blood Cells # 0.0 Test 10/31/16 16:20 Hepatitis B Surface Antigen Pending Hepatitis B Core Total Antibody Pending Hepatitis C Antibody Pending Medications Medications Current Medications Acetaminophen (Tylenol Liquid) 650 mg Q4H PRN GTB MODERATE PAIN 4-610; Start 10/30/16 at 19:30 Folic Acid (Folic Acid) 1 mg DAILY GTB Last administered on 10/31/16 09:03; Admin Dose 1 MG; Start 10/31/16 at 09:00 Hydralazine HCl (Apresoline) 50 mg Q8 GTB Last administered on 10/31/16 13:10 ; Admin Dose 50 MG; Start 10/30/16 at 22:00 Insulin Detemir (Levemir) 8 unit QHS SC ; Start 10/30/16 at 21:00 Lansoprazole (Prevacid) 30 mg DAILY GTB Last administered on 10/31/16 09:03; Admin Dose 30 MG; Start 10/31/16 at 09:00 Multivit/Ca Carb/ B Cmplx/FA/Prenat (Elah-Juan Jose) 1 tab DAILY GTB Last administered on 10/31/16 09:03; Admin Dose 1 TAB; Start 10/31/16 at 09:00 Ondansetron HCl (Zofran Tab) 4 mg Q6H PRN GTB NAUSEA AND/OR VOMITING; Start at 19:30 Zolpidem Tartrate (Ambien) 5 mg QHS PRN GTB INSOMNIA; Start 10/30/16 at 19:30 Miscellaneous Information 1 ea NOTE XX ; Start 10/30/16 at 19:30 Glucose (Glutose) 15 gm Q15M PRN PO DECREASED GLUCOSE; Start 10/30/16 at 19:30 Glucose (Glutose) 22.5 gm Q15M PRN PO DECREASED GLUCOSE; Start 10/30/16 at 19: 30 Dextrose (D50w Syringe) 25 ml Q15M PRN IV DECREASED GLUCOSE; Start 10/30/16 at 19:30 Dextrose (D50w Syringe) 50 ml Q15M PRN IV DECREASED GLUCOSE; Start 10/30/16 at 19:30 Glucagon (Glucagen) 1 mg Q15M PRN IM DECREASED GLUCOSE; Start 10/30/16 at 19:30 Glucose (Glutose) 15 gm Q15M PRN BUCCAL DECREASED GLUCOSE; Start 10/30/16 at 19 :30 Doxazosin Mesylate (Cardura) 2 mg QHS GTB ; Start 10/30/16 at 21:32 Miscellaneous Information [facility] This patient flores... PRN PRN XX WOUND CARE; Start 10/31/16 at 08:00 Levetiracetam (Keppra Liquid) 500 mg BID GTB Last administered on 10/31/16 10: 58; Admin Dose 500 MG; Start 10/31/16 at 10:00 Lactulose (Enulose) 20 gm Q3 GTB Last administered on 10/31/16 14:55; Admin Dose 20 GM; Start 10/31/16 at 15:00; Stop 11/01/16 at 00:01 NOELLE JIMENEZ Oct 31, 2016 17:59
[2016-10-31 18:09] LABS: HEPATITIS B CORE ANTIBODY NEGATIVE (NEGATIVE)
[2016-10-31] MEDS: INSULIN DETEMIR [LEVEMIR] 3ML CART SC SCH (20:17)
[2016-10-31] MEDS: DOXAZOSIN 1 MG TAB GTB SCH (20:18)
[2016-11-01] VITALS (22 sets, daily range): BP systolic 93–178; BP diastolic 52–84; PULSE 60–75; RESP 18–22
[2016-11-01] MEDS: LACTULOSE 30ML CUP GTB SCH
[2016-11-01] MEDS: DEXTROSE 5%-0.45% NACL 1,000 ML IV SCH (06:30)
[2016-11-01] MEDS: SEVELAMER CARBONATE 0.8 GM PKT GTB SCH ×3 (08:00→17:07)
[2016-11-01] MEDS: MULTIVIT/CA CARB/B CMPLX/FA TAB GTB SCH (09:00)
[2016-11-01] MEDS: FOLIC ACID 1 MG TAB GTB SCH (09:00)
[2016-11-01] MEDS: LANSOPRAZOLE 30 MG CAP GTB SCH (09:00)
[2016-11-01 09:44] LABS: ADD SCAN DIFF NO
[2016-11-01] MEDS: LEVETIRACETAM (100 MG/ML) 5ML CUP GTB SCH ×2 (09:45→20:45)
[2016-11-01 09:46] LABS: ABNORMAL IP MESSAGE 1; BASOPHILS % 0.2 % (0.0-2.0); EOSINOPHILS # 0.1 10^3/ul (0.0-0.5); EOSINOPHILS % 2.1 % (0.0-7.0); HEMATOCRIT 34.9 % (42.0-52.0); HEMOGLOBIN 11.6 g/dl (14.0-18.0); LYMPHOCYTES # 0.6 10^3/ul (0.8-2.9); LYMPHOCYTES % 11.2 % (15.0-51.0); MEAN CORPUSCULAR HEMOGLOBIN 30.4 pg (29.0-33.0); MEAN CORPUSCULAR HGB CONC 33.2 g/dl (32.0-37.0); MEAN CORPUSCULAR VOLUME 91.4 fl (82.0-101.0); MEAN PLATELET VOLUME 9.8 fl (7.4-10.4); MONOCYTE # 0.5 10^3/ul (0.3-0.9); MONOCYTES % 9.8 % (0.0-11.0); NEUTROPHILS % 76.3 % (39.0-77.0); PLATELET COUNT 260 10^3/UL (140-415); RED BLOOD COUNT 3.82 10^6/ul (4.70-6.10); RED CELL DISTRIBUTION WIDTH 14.9 % (11.5-14.5); WHITE BLOOD COUNT 5.2 10^3/ul (4.8-10.8)
--- NOTE | 2016-11-01 10:40 | PN ---
Date/Time of Note Date/Time of Note DATE: 11/01/16 TIME: 10:38 Assessment/Plan Lines/Catheters IV Catheter Type (from [facility]): Peripheral IV Urinary Cath still in place: No Assessment/Plan Chief Complaint/Hosp Course 1. End-stage renal disease. -s/p HD yesterday -plan for HD today 2. Uremia. cont HD 3. Hypokalemia; hd on 4 k bath, repeat renal panel 4. Anemia. Continue to monitor hemoglobin and hematocrit levels. Continue Epogen with hemodialysis. 5. Mineral bone disorder. Continue to monitor calcium and phosphorus levels. Continue phosphate binders. 6. Hypertension. Continue current blood pressure regimen. 7. s/p Sepsis secondary to pneumonia. s/p antibiotics 6. Chronic respiratory failure, status post tracheostomy, currently stable. 7. Diabetes. Continue current insulin regimen. 8. Chronic encephalopathy. No change. 9. Seizure disorder. Continue current medical management. 10. hyponatremia: Hd on 140 na bath 10. rectal bleed: f/u gi, pending colonoscopy Problems: Subjective 24 Hr Interval Summary Free Text/Dictation remains confused, HD planned for today colonoscopy pending Exam/Review of Systems Vital Signs Vitals Vital Signs Date Time Temp Pulse Resp B/P Pulse Ox O2 Delivery O2 Flow Rate FiO2 11/01/16 09:04 61 11/01/16 08:18 5.0 28 11/01/16 08:18 16 98 Aerosol 11/01/16 08:15 98.3 140/65 Intake and Output 10/31/16 10/31/16 11/01/16 15:00 23:00 07:00 Intake Total 300 ml 570 ml Output Total 2300 ml Balance -2000 ml 570 ml Exam Constitutional: altered Head: atraumatic, normocephalic Neck: non-tender, supple Respiratory: normal air movement Cardiovascular: nl pulses Gastrointestinal: non-tender, soft Musculoskeletal: muscle weakness Extremities: normal pulses Results Result Diagram: 11/01/16 0922 10/31/16 1315 Results 24 hrs Laboratory Tests Test 10/31/16 13:15 10/31/16 16:20 10/31/16 20:06 11/01/16 09:22 White Blood Count 4.4 #L 5.2 Red Blood Count 3.64 L 3.82 L Hemoglobin 11.0 L 11.6 L Hematocrit 32.4 L 34.9 L Mean Corpuscular Volume 89.0 91.4 Mean Corpuscular Hemoglobin 30.2 30.4 Mean Corpuscular Hemoglobin Concent 34.0 33.2 Red Cell Distribution Width 14.7 H 14.9 H Platelet Count 281 # 260 Mean Platelet Volume 9.4 9.8 Neutrophils % 76.1 76.3 Lymphocytes % 10.8 L 11.2 L Monocytes % 9.2 9.8 Eosinophils % 3.2 2.1 Basophils % 0.5 0.2 Nucleated Red Blood Cells % 0.0 0.0 Neutrophils # 3.4 4.0 Lymphocytes # 0.5 L 0.6 L Monocytes # 0.4 0.5 Eosinophils # 0.1 0.1 Basophils # 0.0 0.0 Nucleated Red Blood Cells # 0.0 0.0 Sodium Level 132 L Potassium Level 2.8 *L Chloride Level 90 L Carbon Dioxide Level 30 Anion Gap 15 Blood Urea Nitrogen 64 #H Creatinine 4.06 #H Glucose Level 93 # Calcium Level 9.1 Hepatitis B Surface Antigen NEGATIVE Hepatitis B Core Total Antibody NEGATIVE Hepatitis C Antibody NEGATIVE Bedside Glucose 90 Medications Medications Current Medications Acetaminophen (Tylenol Liquid) 650 mg Q4H PRN GTB MODERATE PAIN 4-610; Start 10/30/16 at 19:30 Folic Acid (Folic Acid) 1 mg DAILY GTB Last administered on 10/31/16 09:03; Admin Dose 1 MG; Start 10/31/16 at 09:00 Hydralazine HCl (Apresoline) 50 mg Q8 GTB Last administered on 10/31/16 20:18 ; Admin Dose 50 MG; Start 10/30/16 at 22:00 Insulin Detemir (Levemir) 8 unit QHS SC ; Start 10/30/16 at 21:00 Lansoprazole (Prevacid) 30 mg DAILY GTB Last administered on 10/31/16 09:03; Admin Dose 30 MG; Start 10/31/16 at 09:00 Multivit/Ca Carb/ B Cmplx/FA/Prenat (Leah-Juan Jose) 1 tab DAILY GTB Last administered on 10/31/16 09:03; Admin Dose 1 TAB; Start 10/31/16 at 09:00 Ondansetron HCl (Zofran Tab) 4 mg Q6H PRN GTB NAUSEA AND/OR VOMITING; Start at 19:30 Zolpidem Tartrate (Ambien) 5 mg QHS PRN GTB INSOMNIA; Start 10/30/16 at 19:30 Miscellaneous Information 1 ea NOTE XX ; Start 10/30/16 at 19:30 Glucose (Glutose) 15 gm Q15M PRN PO DECREASED GLUCOSE; Start 10/30/16 at 19:30 Glucose (Glutose) 22.5 gm Q15M PRN PO DECREASED GLUCOSE; Start 10/30/16 at 19: 30 Dextrose (D50w Syringe) 25 ml Q15M PRN IV DECREASED GLUCOSE; Start 10/30/16 at 19:30 Dextrose (D50w Syringe) 50 ml Q15M PRN IV DECREASED GLUCOSE; Start 10/30/16 at 19:30 Glucagon (Glucagen) 1 mg Q15M PRN IM DECREASED GLUCOSE; Start 10/30/16 at 19:30 Glucose (Glutose) 15 gm Q15M PRN BUCCAL DECREASED GLUCOSE; Start 10/30/16 at 19 :30 Doxazosin Mesylate (Cardura) 2 mg QHS GTB Last administered on 10/31/16 20:18 ; Admin Dose 2 MG; Start 10/30/16 at 21:32 Miscellaneous Information (Pending [facility] Order For Wound Care) This patient flores... PRN PRN XX WOUND CARE; Start 10/31/16 at 08:00 Levetiracetam 500 mg 500 mg BID GTB Last administered on 11/01/16 09:45; Admin Dose 500 MG; Start 10/31/16 at 10:00 Dextrose/Sodium Chloride (D5-1/2ns) 1,000 ml @ 50 mls/hr Q20H IV Last administered on 11/01/16 06:30; Admin Dose 50 MLS/HR; Start 11/01/16 at 05:30 MARYURI RYAN DO Nov 01, 2016 10:40
[2016-11-01 10:50] LABS: CALCIUM 9.6 mg/dl (8.4-10.2); CREATININE 4.68 mg/dl (0.61-1.24); MAGNESIUM 2.8 mg/dl (1.7-2.5); PHOSPHORUS 4.2 mg/dl (2.5-4.9); POTASSIUM 3.6 mmol/L (3.5-5.1)
[2016-11-01 14:26] LABS: ABNORMAL IP MESSAGE 1; BASOPHILS % 0.5 % (0.0-2.0); EOSINOPHILS # 0.1 10^3/ul (0.0-0.5); EOSINOPHILS % 1.6 % (0.0-7.0); HEMATOCRIT 37.6 % (42.0-52.0); HEMOGLOBIN 12.4 g/dl (14.0-18.0); LYMPHOCYTES # 0.5 10^3/ul (0.8-2.9); LYMPHOCYTES % 10.3 % (15.0-51.0); MEAN CORPUSCULAR VOLUME 90.8 fl (82.0-101.0); MEAN PLATELET VOLUME 9.4 fl (7.4-10.4); MONOCYTE # 0.5 10^3/ul (0.3-0.9); MONOCYTES % 10.3 % (0.0-11.0); NEUTROPHIL # 3.4 10^3/ul (1.6-7.5); NEUTROPHILS % 77.1 % (39.0-77.0); PLATELET COUNT 264 10^3/UL (140-415); RED BLOOD COUNT 4.14 10^6/ul (4.70-6.10); RED CELL DISTRIBUTION WIDTH 14.9 % (11.5-14.5); WHITE BLOOD COUNT 4.4 10^3/ul (4.8-10.8)
[2016-11-01 14:28] LABS: ADD SCAN DIFF NO
[2016-11-01 14:46] LABS: CALCIUM 9.9 mg/dl (8.4-10.2); CREATININE 3.05 mg/dl (0.61-1.24); POTASSIUM 3.1 mmol/L (3.5-5.1)
[2016-11-01] MEDS ORDERED: POTASSIUM CHLORIDE 30 MEQ in SOD CHLORIDE 0.9% 150 ML IVPB ONE (15:00)
[2016-11-01] MEDS ORDERED: LIDOCAINE 2% (SDV) 5 ML INJ ONE (17:59)
[2016-11-01] MEDS ORDERED: PROPOFOL 20 ML ONE (17:59)
--- NOTE | 2016-11-01 18:17 | PN ---
Date/Time of Note Date/Time of Note DATE: 11/01/16 TIME: 18:16 Assessment/Plan VTE Prophylaxis VTE Prophylaxis Intervention: other Lines/Catheters IV C[facility]ter Type (from [facility]): Peripheral IV Urinary Cath still in place: No Assessment/Plan Assessment/Plan 1. Supraventricular tachycardia. Currently in sinus rhythm. Dr. Foote is following the patient in cardiology consultation. 2. Alzheimer dementia with psychosis. Continue Seroquel. 3. Seizure disorder. Continue Keppra. 4. Diabetes mellitus. Continue metformin. 5. Hypertension. 6. Status post cerebrovascular accident. 7. Colostomy. Dr. Horta is is following in surgical consultation for possible reversal colostomy. 8. Bedbound status. Further recommendations based on clinical course. Plan of care discussed with Dr. Godinez. Exam/Review of Systems Vital Signs Vitals Vital Signs Date Time Temp Pulse Resp B/P Pulse Ox O2 Delivery O2 Flow Rate FiO2 11/01/16 16:41 98.0 65 20 100/53 98 11/01/16 14:25 Aerosol 5.0 28 Intake and Output 10/31/16 10/31/16 11/01/16 15:00 23:00 07:00 Intake Total 300 ml 570 ml Output Total 2300 ml Balance -2000 ml 570 ml Exam Constitutional: alert Eyes: EOMI, nl conjunctiva ENMT: nl external ears & nose, nl lips & teeth Respiratory: clear to auscultation Cardiovascular: nl pulses Gastrointestinal: non-tender, soft Results Result Diagram: 11/01/16 1410 11/01/16 1410 Results 24 hrs Laboratory Tests Test 10/31/16 20:06 11/01/16 09:22 11/01/16 14:10 Bedside Glucose 90 White Blood Count 5.2 4.4 L Red Blood Count 3.82 L 4.14 L Hemoglobin 11.6 L 12.4 L Hematocrit 34.9 L 37.6 L Mean Corpuscular Volume 91.4 90.8 Mean Corpuscular Hemoglobin 30.4 30.0 Mean Corpuscular Hemoglobin Concent 33.2 33.0 Red Cell Distribution Width 14.9 H 14.9 H Platelet Count 260 264 Mean Platelet Volume 9.8 9.4 Neutrophils % 76.3 77.1 H Lymphocytes % 11.2 L 10.3 L Monocytes % 9.8 10.3 Eosinophils % 2.1 1.6 Basophils % 0.2 0.5 Nucleated Red Blood Cells % 0.0 0.0 Neutrophils # 4.0 3.4 Lymphocytes # 0.6 L 0.5 L Monocytes # 0.5 0.5 Eosinophils # 0.1 0.1 Basophils # 0.0 0.0 Nucleated Red Blood Cells # 0.0 0.0 Sodium Level 135 141 Potassium Level 3.6 3.1 L Chloride Level 95 L 96 L Carbon Dioxide Level 25 29 Anion Gap 19 H 19 H Blood Urea Nitrogen 73 H 40 #H Creatinine 4.68 H 3.05 #H Glucose Level 101 126 Calcium Level 9.6 9.9 Phosphorus Level 4.2 Magnesium Level 2.8 H Medications Medications Current Medications Acetaminophen (Tylenol Liquid) 650 mg Q4H PRN GTB MODERATE PAIN 4-10/13; Start 10/30/16 at 19:30 Folic Acid (Folic Acid) 1 mg DAILY GTB Last administered on 10/31/16 09:03; Admin Dose 1 MG; Start 10/31/16 at 09:00 Hydralazine HCl (Apresoline) 50 mg Q8 GTB Last administered on 10/31/16 20:18 ; Admin Dose 50 MG; Start 10/30/16 at 22:00 Insulin Detemir (Levemir) 8 unit QHS SC ; Start 10/30/16 at 21:00 Lansoprazole (Prevacid) 30 mg DAILY GTB Last administered on 10/31/16 09:03; Admin Dose 30 MG; Start 10/31/16 at 09:00 Multivit/Ca Carb/ B Cmplx/FA/Prenat (Leah-Juan Jose) 1 tab DAILY GTB Last administered on 10/31/16 09:03; Admin Dose 1 TAB; Start 10/31/16 at 09:00 Ondansetron HCl (Zofran Tab) 4 mg Q6H PRN GTB NAUSEA AND/OR VOMITING; Start at 19:30 Zolpidem Tartrate (Ambien) 5 mg QHS PRN GTB INSOMNIA; Start 10/30/16 at 19:30 Miscellaneous Information 1 ea NOTE XX ; Start 10/30/16 at 19:30 Glucose (Glutose) 15 gm Q15M PRN PO DECREASED GLUCOSE; Start 10/30/16 at 19:30 Glucose (Glutose) 22.5 gm Q15M PRN PO DECREASED GLUCOSE; Start 10/30/16 at 19: 30 Dextrose (D50w Syringe) 25 ml Q15M PRN IV DECREASED GLUCOSE; Start 10/30/16 at 19:30 Dextrose (D50w Syringe) 50 ml Q15M PRN IV DECREASED GLUCOSE; Start 10/30/16 at 19:30 Glucagon (Glucagen) 1 mg Q15M PRN IM DECREASED GLUCOSE; Start 10/30/16 at 19:30 Glucose (Glutose) 15 gm Q15M PRN BUCCAL DECREASED GLUCOSE; Start 10/30/16 at 19 :30 Doxazosin Mesylate (Cardura) 2 mg QHS GTB Last administered on 10/31/16 20:18 ; Admin Dose 2 MG; Start 10/30/16 at 21:32 Miscellaneous Information (Pending [facility] Order For Wound Care) This patient flores... PRN PRN XX WOUND CARE; Start 10/31/16 at 08:00 Levetiracetam 500 mg 500 mg BID GTB Last administered on 11/01/16 09:45; Admin Dose 500 MG; Start 10/31/16 at 10:00 Dextrose/Sodium Chloride (D5-1/2ns) 1,000 ml @ 50 mls/hr Q20H IV Last administered on 11/01/16 06:30; Admin Dose 50 MLS/HR; Start 11/01/16 at 05:30 CANDY JUAREZ Nov 01, 2016 18:17
[2016-11-01] MEDS: DOXAZOSIN 1 MG TAB GTB SCH (20:46)
[2016-11-01] MEDS: INSULIN DETEMIR [LEVEMIR] 3ML CART SC SCH (21:00)
[2016-11-02] VITALS (11 sets, daily range): BP systolic 153–162; BP diastolic 65–89; PULSE 62–75; RESP 16–19
[2016-11-02] MEDS: DEXTROSE 5%-0.45% NACL 1,000 ML IV SCH (01:30)
[2016-11-02 07:24] LABS: ABNORMAL IP MESSAGE 1; BASOPHILS % 0.4 % (0.0-2.0); EOSINOPHILS # 0.1 10^3/ul (0.0-0.5); EOSINOPHILS % 1.8 % (0.0-7.0); HEMATOCRIT 35.8 % (42.0-52.0); HEMOGLOBIN 11.8 g/dl (14.0-18.0); LYMPHOCYTES # 0.4 10^3/ul (0.8-2.9); LYMPHOCYTES % 7.8 % (15.0-51.0); MEAN CORPUSCULAR VOLUME 91.1 fl (82.0-101.0); MEAN PLATELET VOLUME 10.2 fl (7.4-10.4); MONOCYTE # 0.4 10^3/ul (0.3-0.9); MONOCYTES % 9.3 % (0.0-11.0); NEUTROPHIL # 3.6 10^3/ul (1.6-7.5); NEUTROPHILS % 80.5 % (39.0-77.0); PLATELET COUNT 249 10^3/UL (140-415); RED BLOOD COUNT 3.93 10^6/ul (4.70-6.10); WHITE BLOOD COUNT 4.5 10^3/ul (4.8-10.8)
[2016-11-02 07:29] LABS: ADD SCAN DIFF NO
[2016-11-02 07:53] LABS: CALCIUM 9.7 mg/dl (8.4-10.2); CREATININE 3.57 mg/dl (0.61-1.24); MAGNESIUM 2.4 mg/dl (1.7-2.5); PHOSPHORUS 3.2 mg/dl (2.5-4.9); POTASSIUM 3.4 mmol/L (3.5-5.1)
[2016-11-02] MEDS: FOLIC ACID 1 MG TAB GTB SCH (08:29)
[2016-11-02] MEDS: LANSOPRAZOLE 30 MG CAP GTB SCH (08:30)
[2016-11-02] MEDS: LEVETIRACETAM (100 MG/ML) 5ML CUP GTB SCH ×2 (08:30→21:15)
[2016-11-02] MEDS: SEVELAMER CARBONATE 0.8 GM PKT GTB SCH ×3 (08:30→17:14)
[2016-11-02] MEDS: MULTIVIT/CA CARB/B CMPLX/FA TAB GTB SCH (08:30)
[2016-11-02] MEDS ORDERED: POTASSIUM CHLORIDE 20 MEQ POWDER FOR ORAL SOLN GTB ONE (10:00)
--- NOTE | 2016-11-02 10:33 | PN ---
Date/Time of Note Date/Time of Note DATE: 11/02/16 TIME: 10:30 Assessment/Plan Lines/Catheters IV C[facility] Type [facility]from [facility] Peripheral IV Urinary Cath still in place: No Assessment/Plan Chief Complaint/Hosp Course 1. End-stage renal disease. -s/p HD yesterday -plan for HD tomorrow 2. Uremia. Improved 3. Hypokalemia; replace with potassium chloride 4. Anemia. Continue to monitor hemoglobin and hematocrit levels. Continue Epogen with hemodialysis. 5. Mineral bone disorder. Continue to monitor calcium and phosphorus levels. Continue phosphate binders. 6. Hypertension. Continue current blood pressure regimen. 7. s/p Sepsis secondary to pneumonia. s/p antibiotics 6. Chronic respiratory failure, status post tracheostomy, currently stable. 7. Diabetes. Continue current insulin regimen. 8. Chronic encephalopathy. No change. 9. Seizure disorder. Continue current medical management. 10. hyponatremia: Hd on 140 na bath 10. rectal bleed: f/u gi, pending colonoscopy Problems: Subjective 24 Hr Interval Summary Free Text/Dictation Patient stable no events noted overnight. Patient's pending hemodialysis Exam/Review of Systems Vital Signs Vitals Vital Signs Date Time Temp Pulse Resp B/P Pulse Ox O2 Delivery O2 Flow Rate FiO2 11/02/16 09:29 5.0 11/02/16 08:33 98.6 69 18 156/70 98 11/02/16 01:26 Aerosol 28 Intake and Output 11/01/16 11/01/16 11/02/16 15:00 23:00 07:00 Intake Total 300 ml 665 ml 1080 ml Output Total 2800 ml Balance -2500 ml 665 ml 1080 ml Exam Constitutional: altered Head: atraumatic, normocephalic Neck: non-tender, supple Respiratory: normal air movement Cardiovascular: nl pulses Gastrointestinal: non-tender, soft Musculoskeletal: muscle weakness Extremities: normal pulses Results Result Diagram: 11/02/16 0625 11/02/16 0625 Results 24 hrs Laboratory Tests Test 11/01/16 14:10 11/01/16 21:17 11/02/16 06:25 White Blood Count 4.4 L 4.5 L Red Blood Count 4.14 L 3.93 L Hemoglobin 12.4 L 11.8 L Hematocrit 37.6 L 35.8 L Mean Corpuscular Volume 90.8 91.1 Mean Corpuscular Hemoglobin 30.0 30.0 Mean Corpuscular Hemoglobin Concent 33.0 33.0 Red Cell Distribution Width 14.9 H 15.0 H Platelet Count 264 249 Mean Platelet Volume 9.4 10.2 Neutrophils % 77.1 H 80.5 H Lymphocytes % 10.3 L 7.8 L Monocytes % 10.3 9.3 Eosinophils % 1.6 1.8 Basophils % 0.5 0.4 Nucleated Red Blood Cells % 0.0 0.0 Neutrophils # 3.4 3.6 Lymphocytes # 0.5 L 0.4 L Monocytes # 0.5 0.4 Eosinophils # 0.1 0.1 Basophils # 0.0 0.0 Nucleated Red Blood Cells # 0.0 0.0 Sodium Level 141 136 Potassium Level 3.1 L 3.4 L Chloride Level 96 L 95 L Carbon Dioxide Level 29 28 Anion Gap 19 H 16 Blood Urea Nitrogen 40 #H 43 H Creatinine 3.05 #H 3.57 H Glucose Level 126 155 Calcium Level 9.9 9.7 Bedside Glucose 116 Phosphorus Level 3.2 Magnesium Level 2.4 Medications Medications Current Medications Acetaminophen (Tylenol Liquid) 650 mg Q4H PRN GTB MODERATE PAIN 4-610; Start 10/30/16 at 19:30 Folic Acid (Folic Acid) 1 mg DAILY GTB Last administered on 11/02/16 08:29; Admin Dose 1 MG; Start 10/31/16 at 09:00 Hydralazine HCl (Apresoline) 50 mg Q8 GTB Last administered on 11/02/16 06:22 ; Admin Dose 50 MG; Start 10/30/16 at 22:00 Insulin Detemir (Levemir) 8 unit QHS SC Last administered on 11/01/16 21:00; Admin Dose 8 UNIT; Start 10/30/16 at 21:00 Lansoprazole (Prevacid) 30 mg DAILY GTB Last administered on 11/02/16 08:30; Admin Dose 30 MG; Start 10/31/16 at 09:00 Multivit/Ca Carb/ B Cmplx/FA/Prenat (Leah-Juan Jose) 1 tab DAILY GTB Last administered on 11/02/16 08:30; Admin Dose 1 TAB; Start 10/31/16 at 09:00 Ondansetron HCl (Zofran Tab) 4 mg Q6H PRN GTB NAUSEA AND/OR VOMITING; Start at 19:30 Zolpidem Tartrate (Ambien) 5 mg QHS PRN GTB INSOMNIA; Start 10/30/16 at 19:30 Miscellaneous Information 1 ea NOTE XX ; Start 10/30/16 at 19:30 Glucose (Glutose) 15 gm Q15M PRN PO DECREASED GLUCOSE; Start 10/30/16 at 19:30 Glucose (Glutose) 22.5 gm Q15M PRN PO DECREASED GLUCOSE; Start 10/30/16 at 19: 30 Dextrose (D50w Syringe) 25 ml Q15M PRN IV DECREASED GLUCOSE; Start 10/30/16 at 19:30 Dextrose (D50w Syringe) 50 ml Q15M PRN IV DECREASED GLUCOSE; Start 10/30/16 at 19:30 Glucagon (Glucagen) 1 mg Q15M PRN IM DECREASED GLUCOSE; Start 10/30/16 at 19:30 Glucose (Glutose) 15 gm Q15M PRN BUCCAL DECREASED GLUCOSE; Start 10/30/16 at 19 :30 Doxazosin Mesylate (Cardura) 2 mg QHS GTB Last administered on 11/01/16 20:46 ; Admin Dose 2 MG; Start 10/30/16 at 21:32 Miscellaneous Information (Pending [facility] Order For Wound Care) This patient flores... PRN PRN XX WOUND CARE; Start 10/31/16 at 08:00 Levetiracetam (Keppra Liquid) 500 mg BID GTB Last administered on 11/02/16 08: 30; Admin Dose 500 MG; Start 10/31/16 at 10:00 MARYURI RYAN DO Nov 02, 2016 10:32
--- NOTE | 2016-11-02 16:44 | PN ---
Date/Time of Note Date/Time of Note DATE: 11/02/16 TIME: 16:38 Assessment/Plan VTE Prophylaxis VTE Prophylaxis Intervention: SCD's Lines/Catheters IV Catheter Type (from [facility]): Peripheral IV Urinary Cath still in place: No Assessment/Plan Chief Complaint/Hosp Course Patient is status post colonoscopy yesterday, status post hemodialysis yesterday , pending dialysis tomorrow, discussed with case management, hemodialysis is arranged as an outpatient however exact date of next hemodialysis is not known, therefore patient will be dialyzed tomorrow. Discussed with Dr. Sales, patient needs dialysis tomorrow. Assessment/Plan - Hemodialysis dependent end-stage renal disease. Dr. Sales is following patient in nephrology consultation. - Hyperkalemia secondary to ESRD on admission, resolved. - Rectal bleed, Dr Salter is following in GI consultation. Status post colonoscopy yesterday. - Seizure disorder, continue Keppra - Chronic respiratory failure with tracheostomy - Dysphagia with G-tube, continue G-tube feeding, aspiration precaution. - Diabetes mellitus, continue Lantus and NovoLog. - Hypertension. Continue Cardura and hydralazine. - Anemia of chronic disease. Further recommendations based on clinical course. Plan of care discussed with Dr. Godinez. Problems: Exam/Review of Systems Vital Signs Vitals Vital Signs Date Time Temp Pulse Resp B/P Pulse Ox O2 Delivery O2 Flow Rate FiO2 11/02/16 16:17 75 11/02/16 16:11 98.7 18 153/89 98 11/02/16 09:29 5.0 11/02/16 01:26 Aerosol 28 Intake and Output 11/01/16 11/01/16 11/02/16 15:00 23:00 07:00 Intake Total 300 ml 665 ml 1080 ml Output Total 2800 ml Balance -2500 ml 665 ml 1080 ml Exam Constitutional: alert, oriented Head: atraumatic, normocephalic Neck: non-tender, supple Respiratory: normal air movement Cardiovascular: nl pulses Gastrointestinal: non-tender, soft Musculoskeletal: muscle weakness Extremities: normal pulses Results Result Diagram: 11/02/1625 11/02/16 0625 Results 24 hrs Laboratory Tests Test 11/01/16 21:17 11/02/16 06:25 Bedside Glucose 116 White Blood Count 4.5 L Red Blood Count 3.93 L Hemoglobin 11.8 L Hematocrit 35.8 L Mean Corpuscular Volume 91.1 Mean Corpuscular Hemoglobin 30.0 Mean Corpuscular Hemoglobin Concent 33.0 Red Cell Distribution Width 15.0 H Platelet Count 249 Mean Platelet Volume 10.2 Neutrophils % 80.5 H Lymphocytes % 7.8 L Monocytes % 9.3 Eosinophils % 1.8 Basophils % 0.4 Nucleated Red Blood Cells % 0.0 Neutrophils # 3.6 Lymphocytes # 0.4 L Monocytes # 0.4 Eosinophils # 0.1 Basophils # 0.0 Nucleated Red Blood Cells # 0.0 Sodium Level 136 Potassium Level 3.4 L Chloride Level 95 L Carbon Dioxide Level 28 Anion Gap 16 Blood Urea Nitrogen 43 H Creatinine 3.57 H Glucose Level 155 Calcium Level 9.7 Phosphorus Level 3.2 Magnesium Level 2.4 Medications Medications Current Medications Acetaminophen (Tylenol Liquid) 650 mg Q4H PRN GTB MODERATE PAIN 4-610; Start 10/30/16 at 19:30 Folic Acid (Folic Acid) 1 mg DAILY GTB Last administered on 11/02/16 08:29; Admin Dose 1 MG; Start 10/31/16 at 09:00 Hydralazine HCl (Apresoline) 50 mg Q8 GTB Last administered on 11/02/16 13:12 ; Admin Dose 50 MG; Start 10/30/16 at 22:00 Insulin Detemir (Levemir) 8 unit QHS SC Last administered on 11/01/16 21:00; Admin Dose 8 UNIT; Start 10/30/16 at 21:00 Lansoprazole (Prevacid) 30 mg DAILY GTB Last administered on 11/02/16 08:30; Admin Dose 30 MG; Start 10/31/16 at 09:00 Multivit/Ca Carb/ B Cmplx/FA/Prenat (Leah-Juan Jose) 1 tab DAILY GTB Last administered on 11/02/16 08:30; Admin Dose 1 TAB; Start 10/31/16 at 09:00 Ondansetron HCl (Zofran Tab) 4 mg Q6H PRN GTB NAUSEA AND/OR VOMITING; Start at 19:30 Zolpidem Tartrate (Ambien) 5 mg QHS PRN GTB INSOMNIA; Start 10/30/16 at 19:30 Miscellaneous Information 1 ea NOTE XX ; Start 10/30/16 at 19:30 Glucose (Glutose) 15 gm Q15M PRN PO DECREASED GLUCOSE; Start 10/30/16 at 19:30 Glucose (Glutose) 22.5 gm Q15M PRN PO DECREASED GLUCOSE; Start 10/30/16 at 19: 30 Dextrose (D50w Syringe) 25 ml Q15M PRN IV DECREASED GLUCOSE; Start 10/30/16 at 19:30 Dextrose (D50w Syringe) 50 ml Q15M PRN IV DECREASED GLUCOSE; Start 10/30/16 at 19:30 Glucagon (Glucagen) 1 mg Q15M PRN IM DECREASED GLUCOSE; Start 10/30/16 at 19:30 Glucose (Glutose) 15 gm Q15M PRN BUCCAL DECREASED GLUCOSE; Start 10/30/16 at 19 :30 Doxazosin Mesylate (Cardura) 2 mg QHS GTB Last administered on 11/01/16 20:46 ; Admin Dose 2 MG; Start 10/30/16 at 21:32 Miscellaneous Information (Pending [facility] Order For Wound Care) This patient flores... PRN PRN XX WOUND CARE; Start 10/31/16 at 08:00 Levetiracetam (Keppra Liquid) 500 mg BID GTB Last administered on 11/02/16 08: 30; Admin Dose 500 MG; Start 10/31/16 at 10:00 NOELLE JIMENEZ Nov 02, 2016 16:43
[2016-11-02] MEDS: INSULIN DETEMIR [LEVEMIR] 3ML CART SC SCH (21:00)
[2016-11-02] MEDS: DOXAZOSIN 1 MG TAB GTB SCH (21:16)
[2016-11-03] VITALS (20 sets, daily range): BP systolic 107–152; BP diastolic 59–89; PULSE 80–119; RESP 16–19
[2016-11-03 07:30] LABS: BASOPHILS % 0.2 % (0.0-2.0); EOSINOPHILS # 0.1 10^3/ul (0.0-0.5); EOSINOPHILS % 1.7 % (0.0-7.0); HEMATOCRIT 34.2 % (42.0-52.0); HEMOGLOBIN 10.9 g/dl (14.0-18.0); LYMPHOCYTES # 0.6 10^3/ul (0.8-2.9); LYMPHOCYTES % 10.2 % (15.0-51.0); MEAN CORPUSCULAR HEMOGLOBIN 29.6 pg (29.0-33.0); MEAN CORPUSCULAR HGB CONC 31.9 g/dl (32.0-37.0); MEAN CORPUSCULAR VOLUME 92.9 fl (82.0-101.0); MEAN PLATELET VOLUME 9.9 fl (7.4-10.4); MONOCYTE # 0.5 10^3/ul (0.3-0.9); MONOCYTES % 8.2 % (0.0-11.0); NEUTROPHIL # 4.7 10^3/ul (1.6-7.5); NEUTROPHILS % 79.4 % (39.0-77.0); PLATELET COUNT 274 10^3/UL (140-415); RED BLOOD COUNT 3.68 10^6/ul (4.70-6.10); WHITE BLOOD COUNT 5.9 10^3/ul (4.8-10.8)
[2016-11-03 08:02] LABS: CALCIUM 9.8 mg/dl (8.4-10.2); CREATININE 4.09 mg/dl (0.61-1.24); POTASSIUM 4.2 mmol/L (3.5-5.1)
[2016-11-03] MEDS: LEVETIRACETAM (100 MG/ML) 5ML CUP GTB SCH ×2 (09:18→20:59)
[2016-11-03] MEDS: LANSOPRAZOLE 30 MG CAP GTB SCH (09:18)
[2016-11-03] MEDS: MULTIVIT/CA CARB/B CMPLX/FA TAB GTB SCH (09:18)
[2016-11-03] MEDS: SEVELAMER CARBONATE 0.8 GM PKT GTB SCH ×3 (09:18→17:41)
[2016-11-03] MEDS: FOLIC ACID 1 MG TAB GTB SCH (09:19)
--- NOTE | 2016-11-03 09:29 | PN ---
Date/Time of Note Date/Time of Note DATE: 11/03/16 TIME: 09:28 Assessment/Plan Lines/Catheters IV Catheter Type (from [facility]): Peripheral IV Urinary Cath still in place: No Assessment/Plan Chief Complaint/Hosp Course 1. End-stage renal disease. - HD today 2. Uremia. Improved 3. Hypokalemia; replace with potassium chloride 4. Anemia. Continue to monitor hemoglobin and hematocrit levels. Continue Epogen with hemodialysis. 5. Mineral bone disorder. Continue to monitor calcium and phosphorus levels. Continue phosphate binders. 6. Hypertension. Continue current blood pressure regimen. 7. s/p Sepsis secondary to pneumonia. s/p antibiotics 6. Chronic respiratory failure, status post tracheostomy, currently stable. 7. Diabetes. Continue current insulin regimen. 8. Chronic encephalopathy. No change. 9. Seizure disorder. Continue current medical management. 10. hyponatremia: Hd on 140 na bath 10. rectal bleed: f/u gi, pending colonoscopy Problems: Subjective 24 Hr Interval Summary Free Text/Dictation No acute events overnight. Patient stable Exam/Review of Systems Vital Signs Vitals Vital Signs Date Time Temp Pulse Resp B/P Pulse Ox O2 Delivery O2 Flow Rate FiO2 11/03/16 08:40 96 20 100 Aerosol 5.0 28 11/03/16 07:49 98.0 146/65 Intake and Output 11/02/16 11/02/16 11/03/16 15:00 23:00 07:00 Intake Total 520 ml Output Total 2 ml Balance 518 ml Exam Constitutional: altered Head: atraumatic, normocephalic Neck: non-tender, supple Respiratory: normal air movement Cardiovascular: nl pulses Gastrointestinal: non-tender, soft Musculoskeletal: muscle weakness Extremities: normal pulses Results Result Diagram: 11/03/16 0715 11/03/16 0715 Results 24 hrs Laboratory Tests Test 11/02/16 21:18 11/03/16 07:15 Bedside Glucose 97 White Blood Count 5.9 # Red Blood Count 3.68 L Hemoglobin 10.9 L Hematocrit 34.2 L Mean Corpuscular Volume 92.9 Mean Corpuscular Hemoglobin 29.6 Mean Corpuscular Hemoglobin Concent 31.9 L Red Cell Distribution Width 15.0 H Platelet Count 274 Mean Platelet Volume 9.9 Neutrophils % 79.4 H Lymphocytes % 10.2 L Monocytes % 8.2 Eosinophils % 1.7 Basophils % 0.2 Nucleated Red Blood Cells % 0.0 Neutrophils # 4.7 Lymphocytes # 0.6 L Monocytes # 0.5 Eosinophils # 0.1 Basophils # 0.0 Nucleated Red Blood Cells # 0.0 Sodium Level 134 L Potassium Level 4.2 Chloride Level 93 L Carbon Dioxide Level 25 Anion Gap 20 H Blood Urea Nitrogen 59 H Creatinine 4.09 H Glucose Level 154 Calcium Level 9.8 Medications Medications Current Medications Acetaminophen (Tylenol Liquid) 650 mg Q4H PRN GTB MODERATE PAIN 4-10/13; Start 10/30/16 at 19:30 Folic Acid (Folic Acid) 1 mg DAILY GTB Last administered on 11/03/16 09:19; Admin Dose 1 MG; Start 10/31/16 at 09:00 Hydralazine HCl (Apresoline) 50 mg Q8 GTB Last administered on 11/03/16 09:19; Admin Dose 50 MG; Start 10/30/16 at 22:00 Insulin Detemir (Levemir) 8 unit QHS SC Last administered on 11/01/16 21:00; Admin Dose 8 UNIT; Start 10/30/16 at 21:00 Lansoprazole (Prevacid) 30 mg DAILY GTB Last administered on 11/03/16 09:18; Admin Dose 30 MG; Start 10/31/16 at 09:00 Multivit/Ca Carb/ B Cmplx/FA/Prenat (Leah-Juan Jose) 1 tab DAILY GTB Last administered on 11/03/16 09:18; Admin Dose 1 TAB; Start 10/31/16 at 09:00 Ondansetron HCl (Zofran Tab) 4 mg Q6H PRN GTB NAUSEA AND/OR VOMITING; Start at 19:30 Zolpidem Tartrate (Ambien) 5 mg QHS PRN GTB INSOMNIA; Start 10/30/16 at 19:30 Miscellaneous Information 1 ea NOTE XX ; Start 10/30/16 at 19:30 Glucose (Glutose) 15 gm Q15M PRN PO DECREASED GLUCOSE; Start 10/30/16 at 19:30 Glucose (Glutose) 22.5 gm Q15M PRN PO DECREASED GLUCOSE; Start 10/30/16 at 19: 30 Dextrose (D50w Syringe) 25 ml Q15M PRN IV DECREASED GLUCOSE; Start 10/30/16 at 19:30 Dextrose (D50w Syringe) 50 ml Q15M PRN IV DECREASED GLUCOSE; Start 10/30/16 at 19:30 Glucagon (Glucagen) 1 mg Q15M PRN IM DECREASED GLUCOSE; Start 10/30/16 at 19:30 Glucose (Glutose) 15 gm Q15M PRN BUCCAL DECREASED GLUCOSE; Start 10/30/16 at 19 :30 Doxazosin Mesylate (Cardura) 2 mg QHS GTB Last administered on 11/02/16 21:16 ; Admin Dose 2 MG; Start 10/30/16 at 21:32 Miscellaneous Information ([facility]) This patient flores... PRN PRN XX WOUND CARE; Start 10/31/16 at 08:00 Levetiracetam (Keppra Liquid) 500 mg BID GTB Last administered on 11/03/16 09: 18; Admin Dose 500 MG; Start 10/31/16 at 10:00 MARYURI RYAN DO Nov 03, 2016 09:28
--- NOTE | 2016-11-03 14:16 | CONS ---
Date/Time of Note Date/Time of Note DATE: 11/03/16 TIME: 14:13 Assessment/Plan Assessment/Plan Additional Assessment/Plan stable gi bleeding Consultation Date/Type/Reason Admit Date/Time Oct 30, 2016 at 16:55 Initial Consult Date 24 HR Interval Summary Free Text/Dictation non verbal Exam/Review of Systems Vital Signs Vitals Vital Signs Date Time Temp Pulse Resp B/P Pulse Ox O2 Delivery O2 Flow Rate FiO2 11/03/16 13:17 5.0 28 11/03/16 12:01 104 11/03/16 11:40 98.2 18 140/65 98 11/03/16 08:40 Aerosol Intake and Output 11/02/16 11/02/16 11/03/16 15:00 23:00 07:00 Intake Total 520 ml Output Total 2 ml Balance 518 ml Exam on t tube alert n0n verbal abd soft colon path tub adenoma no dysplasia hb stable Results Result Diagram: 11/03/16 0715 11/03/16 0715 Results 24 hrs Laboratory Tests Test 11/02/16 21:18 11/03/16 07:15 Bedside Glucose 97 White Blood Count 5.9 # Red Blood Count 3.68 L Hemoglobin 10.9 L Hematocrit 34.2 L Mean Corpuscular Volume 92.9 Mean Corpuscular Hemoglobin 29.6 Mean Corpuscular Hemoglobin Concent 31.9 L Red Cell Distribution Width 15.0 H Platelet Count 274 Mean Platelet Volume 9.9 Neutrophils % 79.4 H Lymphocytes % 10.2 L Monocytes % 8.2 Eosinophils % 1.7 Basophils % 0.2 Nucleated Red Blood Cells % 0.0 Neutrophils # 4.7 Lymphocytes # 0.6 L Monocytes # 0.5 Eosinophils # 0.1 Basophils # 0.0 Nucleated Red Blood Cells # 0.0 Sodium Level 134 L Potassium Level 4.2 Chloride Level 93 L Carbon Dioxide Level 25 Anion Gap 20 H Blood Urea Nitrogen 59 H Creatinine 4.09 H Glucose Level 154 Calcium Level 9.8 Medications Medications Current Medications Acetaminophen (Tylenol Liquid) 650 mg Q4H PRN GTB MODERATE PAIN 4-6/10; Start 10/30/16 at 19:30 Folic Acid (Folic Acid) 1 mg DAILY GTB Last administered on 11/03/16t 09:19; Admin Dose 1 MG; Start 10/31/16 at 09:00 Hydralazine HCl (Apresoline) 50 mg Q8 GTB Last administered on 11/03/16 09:19; Admin Dose 50 MG; Start 10/30/16 at 22:00 Insulin Detemir (Levemir) 8 unit QHS SC Last administered on 11/01/16 21:00; Admin Dose 8 UNIT; Start 10/30/16 at 21:00 Lansoprazole (Prevacid) 30 mg DAILY GTB Last administered on 11/03/16 09:18; Admin Dose 30 MG; Start 10/31/16 at 09:00 Multivit/Ca Carb/ B Cmplx/FA/Prenat (Leah-Juan Jose) 1 tab DAILY GTB Last administered on 11/03/16 09:18; Admin Dose 1 TAB; Start 10/31/16 at 09:00 Ondansetron HCl (Zofran Tab) 4 mg Q6H PRN GTB NAUSEA AND/OR VOMITING; Start at 19:30 Zolpidem Tartrate (Ambien) 5 mg QHS PRN GTB INSOMNIA; Start 10/30/16 at 19:30 Miscellaneous Information 1 ea NOTE XX ; Start 10/30/16 at 19:30 Glucose (Glutose) 15 gm Q15M PRN PO DECREASED GLUCOSE; Start 10/30/16 at 19:30 Glucose (Glutose) 22.5 gm Q15M PRN PO DECREASED GLUCOSE; Start 10/30/16 at 19: 30 Dextrose (D50w Syringe) 25 ml Q15M PRN IV DECREASED GLUCOSE; Start 10/30/16 at 19:30 Dextrose (D50w Syringe) 50 ml Q15M PRN IV DECREASED GLUCOSE; Start 10/30/16 at 19:30 Glucagon (Glucagen) 1 mg Q15M PRN IM DECREASED GLUCOSE; Start 10/30/16 at 19:30 Glucose (Glutose) 15 gm Q15M PRN BUCCAL DECREASED GLUCOSE; Start 10/30/16 at 19 :30 Doxazosin Mesylate (Cardura) 2 mg QHS GTB Last administered on 11/02/16 21:16 ; Admin Dose 2 MG; Start 10/30/16 at 21:32 Miscellaneous Information (Pending [facility] Order For Wound Care) This patient flores... PRN PRN XX WOUND CARE; Start 10/31/16 at 08:00 Levetiracetam (Keppra Liquid) 500 mg BID GTB Last administered on 11/03/16t 09: 18; Admin Dose 500 MG; Start 10/31/16 at 10:00 JOSUE DAIGLE MD Nov 03, 2016 14:16
--- NOTE | 2016-11-03 18:28 | PN ---
Date/Time of Note Date/Time of Note DATE: 11/03/16 TIME: 18:22 Assessment/Plan VTE Prophylaxis VTE Prophylaxis Intervention: other Lines/Catheters IV C[facility]ter Type (from [facility]): Peripheral IV Urinary Cath still in place: No Assessment/Plan Assessment/Plan - Hemodialysis dependent end-stage renal disease. Dr. Sales is following patient in nephrology consultation. - Hyperkalemia secondary to ESRD on admission, resolved. - Rectal bleed, Dr Salter is following in GI consultation. Status post colonoscopy yesterday. - Seizure disorder, continue Keppra - Chronic respiratory failure with tracheostomy - Dysphagia with G-tube, continue G-tube feeding, aspiration precaution. - Diabetes mellitus, continue Lantus and NovoLog. - Hypertension. Continue Cardura and hydralazine. - Anemia of chronic disease. Further recommendations based on clinical course. Plan of care discussed with Dr. Godinez. Subjective 24 Hr Interval Summary Free Text/Dictation hd today, tolerated well, vss. dw staff Exam/Review of Systems Vital Signs Vitals Vital Signs Date Time Temp Pulse Resp B/P Pulse Ox O2 Delivery O2 Flow Rate FiO2 11/03/16 17:39 97.6 107 18 132/62 98 11/03/16 17:00 5.0 28 11/03/16 08:40 Aerosol Intake and Output 11/02/16 11/02/16 11/03/16 15:00 23:00 07:00 Intake Total 520 ml Output Total 2 ml Balance 518 ml Exam Constitutional: alert Respiratory: clear to auscultation, normal air movement Cardiovascular: nl pulses, regular rate and rhythm Gastrointestinal: non-tender, other (gt intact), soft Extremities: normal pulses Neurological: confused Results Result Diagram: 11/03/16 0715 11/03/16 0715 Results 24 hrs Laboratory Tests Test 11/02/16 21:18 11/03/16 07:15 Bedside Glucose 97 White Blood Count 5.9 # Red Blood Count 3.68 L Hemoglobin 10.9 L Hematocrit 34.2 L Mean Corpuscular Volume 92.9 Mean Corpuscular Hemoglobin 29.6 Mean Corpuscular Hemoglobin Concent 31.9 L Red Cell Distribution Width 15.0 H Platelet Count 274 Mean Platelet Volume 9.9 Neutrophils % 79.4 H Lymphocytes % 10.2 L Monocytes % 8.2 Eosinophils % 1.7 Basophils % 0.2 Nucleated Red Blood Cells % 0.0 Neutrophils # 4.7 Lymphocytes # 0.6 L Monocytes # 0.5 Eosinophils # 0.1 Basophils # 0.0 Nucleated Red Blood Cells # 0.0 Sodium Level 134 L Potassium Level 4.2 Chloride Level 93 L Carbon Dioxide Level 25 Anion Gap 20 H Blood Urea Nitrogen 59 H Creatinine 4.09 H Glucose Level 154 Calcium Level 9.8 Medications Medications Current Medications Acetaminophen (Tylenol Liquid) 650 mg Q4H PRN GTB MODERATE PAIN 4-10/13; Start 10/30/16 at 19:30 Folic Acid (Folic Acid) 1 mg DAILY GTB Last administered on 11/03/16 09:19; Admin Dose 1 MG; Start 10/31/16 at 09:00 Hydralazine HCl (Apresoline) 50 mg Q8 GTB Last administered on 11/03/16 09:19; Admin Dose 50 MG; Start 10/30/16 at 22:00 Insulin Detemir (Levemir) 8 unit QHS SC Last administered on 11/01/16 21:00; Admin Dose 8 UNIT; Start 10/30/16 at 21:00 Lansoprazole (Prevacid) 30 mg DAILY GTB Last administered on 11/03/16 09:18; Admin Dose 30 MG; Start 10/31/16 at 09:00 Multivit/Ca Carb/ B Cmplx/FA/Prenat (Leah-Juan Jose) 1 tab DAILY GTB Last administered on 11/03/16 09:18; Admin Dose 1 TAB; Start 10/31/16 at 09:00 Ondansetron HCl (Zofran Tab) 4 mg Q6H PRN GTB NAUSEA AND/OR VOMITING; Start at 19:30 Zolpidem Tartrate (Ambien) 5 mg QHS PRN GTB INSOMNIA; Start 10/30/16 at 19:30 Miscellaneous Information 1 ea NOTE XX ; Start 10/30/16 at 19:30 Glucose (Glutose) 15 gm Q15M PRN PO DECREASED GLUCOSE; Start 10/30/16 at 19:30 Glucose (Glutose) 22.5 gm Q15M PRN PO DECREASED GLUCOSE; Start 10/30/16 at 19: 30 Dextrose (D50w Syringe) 25 ml Q15M PRN IV DECREASED GLUCOSE; Start 10/30/16 at 19:30 Dextrose (D50w Syringe) 50 ml Q15M PRN IV DECREASED GLUCOSE; Start 10/30/16 at 19:30 Glucagon (Glucagen) 1 mg Q15M PRN IM DECREASED GLUCOSE; Start 10/30/16 at 19:30 Glucose (Glutose) 15 gm Q15M PRN BUCCAL DECREASED GLUCOSE; Start 10/30/16 at 19 :30 Doxazosin Mesylate (Cardura) 2 mg QHS GTB Last administered on 11/02/16 21:16 ; Admin Dose 2 MG; Start 10/30/16 at 21:32 Misc[facility] Information [facility] This patient flores... PRN PRN XX WOUND CARE; Start 10/31/16 at 08:00 Levetiracetam (Keppra Liquid) 500 mg BID GTB Last administered on 11/03/16 09: 18; Admin Dose 500 MG; Start 10/31/16 at 10:00 CANDY JUAREZ Nov 03, 2016 18:28
[2016-11-03] MEDS: DOXAZOSIN 1 MG TAB GTB SCH (20:59)
[2016-11-03] MEDS: INSULIN DETEMIR [LEVEMIR] 3ML CART SC SCH (20:59)
[2016-11-04] VITALS (12 sets, daily range): BP systolic 123–187; BP diastolic 58–84; PULSE 88–115; RESP 18–20
[2016-11-04 07:27] LABS: CALCIUM 10.3 mg/dl (8.4-10.2); CREATININE 3.43 mg/dl (0.61-1.24)
[2016-11-04 09:03] LABS: BASOPHILS % 0.1 % (0.0-2.0); EOSINOPHILS # 0.1 10^3/ul (0.0-0.5); EOSINOPHILS % 1.3 % (0.0-7.0); HEMATOCRIT 34.4 % (42.0-52.0); HEMOGLOBIN 10.9 g/dl (14.0-18.0); LYMPHOCYTES % 13.7 % (15.0-51.0); MEAN CORPUSCULAR HGB CONC 31.7 g/dl (32.0-37.0); MEAN CORPUSCULAR VOLUME 94.8 fl (82.0-101.0); MEAN PLATELET VOLUME 10.1 fl (7.4-10.4); MONOCYTE # 0.6 10^3/ul (0.3-0.9); NEUTROPHIL # 5.4 10^3/ul (1.6-7.5); NEUTROPHILS % 76.6 % (39.0-77.0); PLATELET COUNT 288 10^3/UL (140-415); RED BLOOD COUNT 3.63 10^6/ul (4.70-6.10); RED CELL DISTRIBUTION WIDTH 14.9 % (11.5-14.5)
[2016-11-04 09:06] LABS: ADD SCAN DIFF NO
[2016-11-04] MEDS: LANSOPRAZOLE 30 MG CAP GTB SCH (09:44)
[2016-11-04] MEDS: LEVETIRACETAM (100 MG/ML) 5ML CUP GTB SCH ×2 (09:45→20:35)
[2016-11-04] MEDS: SEVELAMER CARBONATE 0.8 GM PKT GTB SCH ×4 (09:45→20:36)
[2016-11-04] MEDS: MULTIVIT/CA CARB/B CMPLX/FA TAB GTB SCH (09:45)
[2016-11-04] MEDS: FOLIC ACID 1 MG TAB GTB SCH (09:45)
--- NOTE | 2016-11-04 09:57 | PN ---
Date/Time of Note Date/Time of Note DATE: 11/04/16 TIME: 09:56 Assessment/Plan Lines/Catheters IV Catheter Type (from [facility]): Peripheral IV Urinary Cath still in place: No Assessment/Plan Chief Complaint/Hosp Course 1. End-stage renal disease. - HD tomorrow 2. Uremia. Improved 3. Hypokalemia; improved 4. Anemia. Continue to monitor hemoglobin and hematocrit levels. Continue Epogen with hemodialysis. 5. Mineral bone disorder. Continue to monitor calcium and phosphorus levels. Continue phosphate binders. 6. Hypertension. Continue current blood pressure regimen. 7. s/p Sepsis secondary to pneumonia. s/p antibiotics 6. Chronic respiratory failure, status post tracheostomy, currently stable. 7. Diabetes. Continue current insulin regimen. 8. Chronic encephalopathy. No change. 9. Seizure disorder. Continue current medical management. 10. hyponatremia: Hd on 140 na bath 10. rectal bleed: f/u gi, pending colonoscopy Problems: Subjective 24 Hr Interval Summary Free Text/Dictation Patient stable no events overnight. Had hemodialysis yesterday Exam/Review of Systems Vital Signs Vitals Vital Signs Date Time Temp Pulse Resp B/P Pulse Ox O2 Delivery O2 Flow Rate FiO2 11/04/16 08:20 97 16 100 Aerosol 5.0 28 11/04/16 07:52 98.0 175/80 Intake and Output 11/03/16 11/03/16 11/04/16 15:00 23:00 07:00 Intake Total 400 ml 780 ml 680 ml Output Total 3900 ml 2 ml Balance -3500 ml 780 ml 678 ml Exam Constitutional: altered Head: atraumatic, normocephalic Neck: non-tender, supple Respiratory: normal air movement Cardiovascular: nl pulses Gastrointestinal: non-tender, soft Musculoskeletal: muscle weakness Extremities: normal pulses Results Result Diagram: 11/04/16 0556 11/04/16 0556 Results 24 hrs Laboratory Tests Test 11/03/16 20:57 11/04/16 05:56 Bedside Glucose 100 White Blood Count 7.0 Red Blood Count 3.63 L Hemoglobin 10.9 L Hematocrit 34.4 L Mean Corpuscular Volume 94.8 Mean Corpuscular Hemoglobin 30.0 Mean Corpuscular Hemoglobin Concent 31.7 L Red Cell Distribution Width 14.9 H Platelet Count 288 Mean Platelet Volume 10.1 Neutrophils % 76.6 Lymphocytes % 13.7 L Monocytes % 8.0 Eosinophils % 1.3 Basophils % 0.1 Nucleated Red Blood Cells % 0.0 Neutrophils # 5.4 Lymphocytes # 1.0 Monocytes # 0.6 Eosinophils # 0.1 Basophils # 0.0 Nucleated Red Blood Cells # 0.0 Sodium Level 140 Potassium Level 4.0 Chloride Level 92 L Carbon Dioxide Level 30 Anion Gap 22 H Blood Urea Nitrogen 42 #H Creatinine 3.43 H Glucose Level 100 # Calcium Level 10.3 H Medications Medications Current Medications Acetaminophen (Tylenol Liquid) 650 mg Q4H PRN GTB MODERATE PAIN 4-10/13; Start 10/30/16 at 19:30 Folic Acid (Folic Acid) 1 mg DAILY GTB Last administered on 11/04/16 09:45; Admin Dose 1 MG; Start 10/31/16 at 09:00 Hydralazine HCl (Apresoline) 50 mg Q8 GTB Last administered on 11/04/16 05:42; Admin Dose 50 MG; Start 10/30/16 at 22:00 Insulin Detemir (Levemir) 8 unit QHS SC Last administered on 11/01/16 21:00; Admin Dose 8 UNIT; Start 10/30/16 at 21:00 Lansoprazole (Prevacid) 30 mg DAILY GTB Last administered on 11/04/16 09:44; Admin Dose 30 MG; Start 10/31/16 at 09:00 Multivit/Ca Carb/ B Cmplx/FA/Prenat (Leah-Juan Jose) 1 tab DAILY GTB Last administered on 11/04/16 09:45; Admin Dose 1 TAB; Start 10/31/16 at 09:00 Ondansetron HCl (Zofran Tab) 4 mg Q6H PRN GTB NAUSEA AND/OR VOMITING; Start at 19:30 Zolpidem Tartrate (Ambien) 5 mg QHS PRN GTB INSOMNIA; Start 10/30/16 at 19:30 Miscellaneous Information 1 ea NOTE XX ; Start 10/30/16 at 19:30 Glucose (Glutose) 15 gm Q15M PRN PO DECREASED GLUCOSE; Start 10/30/16 at 19:30 Glucose (Glutose) 22.5 gm Q15M PRN PO DECREASED GLUCOSE; Start 10/30/16 at 19: 30 Dextrose (D50w Syringe) 25 ml Q15M PRN IV DECREASED GLUCOSE; Start 10/30/16 at 19:30 Dextrose (D50w Syringe) 50 ml Q15M PRN IV DECREASED GLUCOSE; Start 10/30/16 at 19:30 Glucagon (Glucagen) 1 mg Q15M PRN IM DECREASED GLUCOSE; Start 10/30/16 at 19:30 Glucose (Glutose) 15 gm Q15M PRN BUCCAL DECREASED GLUCOSE; Start 10/30/16 at 19 :30 Doxazosin Mesylate (Cardura) 2 mg QHS GTB Last administered on 11/03/16 20:59; Admin Dose 2 MG; Start 10/30/16 at 21:32 Miscellaneous Information (Pending [facility] Order For Wound Care) This patient flores... PRN PRN XX WOUND CARE; Start 10/31/16 at 08:00 Levetiracetam (Keppra Liquid) 500 mg BID GTB Last administered on 11/04/16 09: 45; Admin Dose 500 MG; Start 10/31/16 at 10:00 MARYURI RYAN DO Nov 04, 2016 09:57
--- NOTE | 2016-11-04 10:28 | CONS ---
Date/Time of Note Date/Time of Note DATE: 11/04/16 TIME: 10:26 Assessment/Plan Assessment/Plan Additional Assessment/Plan tub adenoma of rectum Consultation Date/Type/Reason Admit Date/Time Oct 30, 2016 at 16:55 Hx of Present Illness h/o rectal bleeding no bleeding now Past Surgical History Past Surgical Hx: other Social History Alcohol Use: none Smoking Status: Unknown if ever smoked Drug Use: none Exam/Review of Systems Vital Signs Vitals Vital Signs Date Time Temp Pulse Resp B/P Pulse Ox O2 Delivery O2 Flow Rate FiO2 11/04/16 08:20 97 16 100 Aerosol 5.0 28 11/04/16 07:52 98.0 175/80 Intake and Output 11/03/16 11/03/16 11/04/16 15:00 23:00 07:00 Intake Total 400 ml 780 ml 680 ml Output Total 3900 ml 2 ml Balance -3500 ml 780 ml 678 ml Exam lethargic no rectal bleeding abd soft hb stable Results Result Diagram: 11/04/16 0556 11/04/16 0556 Results 24 hrs Laboratory Tests Test 11/03/16 20:57 11/04/16 05:56 Bedside Glucose 100 White Blood Count 7.0 Red Blood Count 3.63 L Hemoglobin 10.9 L Hematocrit 34.4 L Mean Corpuscular Volume 94.8 Mean Corpuscular Hemoglobin 30.0 Mean Corpuscular Hemoglobin Concent 31.7 L Red Cell Distribution Width 14.9 H Platelet Count 288 Mean Platelet Volume 10.1 Neutrophils % 76.6 Lymphocytes % 13.7 L Monocytes % 8.0 Eosinophils % 1.3 Basophils % 0.1 Nucleated Red Blood Cells % 0.0 Neutrophils # 5.4 Lymphocytes # 1.0 Monocytes # 0.6 Eosinophils # 0.1 Basophils # 0.0 Nucleated Red Blood Cells # 0.0 Sodium Level 140 Potassium Level 4.0 Chloride Level 92 L Carbon Dioxide Level 30 Anion Gap 22 H Blood Urea Nitrogen 42 #H Creatinine 3.43 H Glucose Level 100 # Calcium Level 10.3 H Medications Medications Current Medications Acetaminophen (Tylenol Liquid) 650 mg Q4H PRN GTB MODERATE PAIN 4-6/10; Start 10/30/16 at 19:30 Folic Acid (Folic Acid) 1 mg DAILY GTB Last administered on 11/04/16t 09:45; Admin Dose 1 MG; Start 10/31/16 at 09:00 Hydralazine HCl (Apresoline) 50 mg Q8 GTB Last administered on 11/04/16 05:42; Admin Dose 50 MG; Start 10/30/16 at 22:00 Insulin Detemir (Levemir) 8 unit QHS SC Last administered on 11/01/16 21:00; Admin Dose 8 UNIT; Start 10/30/16 at 21:00 Lansoprazole (Prevacid) 30 mg DAILY GTB Last administered on 11/04/16 09:44; Admin Dose 30 MG; Start 10/31/16 at 09:00 Multivit/Ca Carb/ B Cmplx/FA/Prenat (Leah-Jaun Jose) 1 tab DAILY GTB Last administered on 11/04/16 09:45; Admin Dose 1 TAB; Start 10/31/16 at 09:00 Ondansetron HCl (Zofran Tab) 4 mg Q6H PRN GTB NAUSEA AND/OR VOMITING; Start at 19:30 Zolpidem Tartrate (Ambien) 5 mg QHS PRN GTB INSOMNIA; Start 10/30/16 at 19:30 Miscellaneous Information 1 ea NOTE XX ; Start 10/30/16 at 19:30 Glucose (Glutose) 15 gm Q15M PRN PO DECREASED GLUCOSE; Start 10/30/16 at 19:30 Glucose (Glutose) 22.5 gm Q15M PRN PO DECREASED GLUCOSE; Start 10/30/16 at 19: 30 Dextrose (D50w Syringe) 25 ml Q15M PRN IV DECREASED GLUCOSE; Start 10/30/16 at 19:30 Dextrose (D50w Syringe) 50 ml Q15M PRN IV DECREASED GLUCOSE; Start 10/30/16 at 19:30 Glucagon (Glucagen) 1 mg Q15M PRN IM DECREASED GLUCOSE; Start 10/30/16 at 19:30 Glucose (Glutose) 15 gm Q15M PRN BUCCAL DECREASED GLUCOSE; Start 10/30/16 at 19 :30 Doxazosin Mesylate (Cardura) 2 mg QHS GTB Last administered on 11/03/16 20:59; Admin Dose 2 MG; Start 10/30/16 at 21:32 Miscellaneous Information (Pending [facility] Order For Wound Care) This patient flores... PRN PRN XX WOUND CARE; Start 10/31/16 at 08:00 Levetiracetam (Keppra Liquid) 500 mg BID GTB Last administered on 11/04/16t 09: 45; Admin Dose 500 MG; Start 10/31/16 at 10:00 JOSUE DAIGLE MD Nov 04, 2016 10:28
--- NOTE | 2016-11-04 17:01 | PN ---
Date/Time of Note Date/Time of Note DATE: 11/04/16 TIME: 16:59 Assessment/Plan VTE Prophylaxis VTE Prophylaxis Intervention: other Lines/Catheters IV [facility] Type (from [facility] Urinary Cath still in place: No Assessment/Plan Assessment/Plan - Hemodialysis dependent end-stage renal disease. Dr. Sales is following patient in nephrology consultation. - Hyperkalemia secondary to ESRD on admission, resolved. - Rectal bleed, Dr Salter is following in GI consultation. Status post colonoscopy yesterday. - Seizure disorder, continue Keppra - seizure precautions - Chronic respiratory failure with tracheostomy - Dysphagia with G-tube, continue G-tube feeding, aspiration precaution. - Diabetes mellitus, continue Lantus and NovoLog. - Hypertension. Continue Cardura and hydralazine. - Anemia of chronic disease. Further recommendations based on clinical course. Plan of care discussed with Dr. Godinez. Exam/Review of Systems Vital Signs Vitals Vital Signs Date Time Temp Pulse Resp B/P Pulse Ox O2 Delivery O2 Flow Rate FiO2 11/04/16 16:21 98.0 97 18 128/58 98 11/04/16 12:20 Aerosol 5.0 28 Intake and Output 11/03/16 11/03/16 11/04/16 15:00 23:00 07:00 Intake Total 400 ml 780 ml 680 ml Output Total 3900 ml 2 ml Balance -3500 ml 780 ml 678 ml Exam Constitutional: alert, well developed Respiratory: clear to auscultation, normal air movement, other (trac intact) Cardiovascular: regular rate and rhythm Gastrointestinal: non-tender, other (gt intact), soft Musculoskeletal: muscle weakness Extremities: normal pulses Neurological: confused Results Result Diagram: 11/04/16 0556 11/04/16 0556 Results 24 hrs Laboratory Tests Test 11/03/16 20:57 11/04/16 05:56 Bedside Glucose 100 White Blood Count 7.0 Red Blood Count 3.63 L Hemoglobin 10.9 L Hematocrit 34.4 L Mean Corpuscular Volume 94.8 Mean Corpuscular Hemoglobin 30.0 Mean Corpuscular Hemoglobin Concent 31.7 L Red Cell Distribution Width 14.9 H Platelet Count 288 Mean Platelet Volume 10.1 Neutrophils % 76.6 Lymphocytes % 13.7 L Monocytes % 8.0 Eosinophils % 1.3 Basophils % 0.1 Nucleated Red Blood Cells % 0.0 Neutrophils # 5.4 Lymphocytes # 1.0 Monocytes # 0.6 Eosinophils # 0.1 Basophils # 0.0 Nucleated Red Blood Cells # 0.0 Sodium Level 140 Potassium Level 4.0 Chloride Level 92 L Carbon Dioxide Level 30 Anion Gap 22 H Blood Urea Nitrogen 42 #H Creatinine 3.43 H Glucose Level 100 # Calcium Level 10.3 H Medications Medications Current Medications Acetaminophen (Tylenol Liquid) 650 mg Q4H PRN GTB MODERATE PAIN 4-10/13; Start 10/30/16 at 19:30 Folic Acid (Folic Acid) 1 mg DAILY GTB Last administered on 11/04/16 09:45; Admin Dose 1 MG; Start 10/31/16 at 09:00 Hydralazine HCl (Apresoline) 50 mg Q8 GTB Last administered on 11/04/16 12:50; Admin Dose 50 MG; Start 10/30/16 at 22:00 Insulin Detemir (Levemir) 8 unit QHS SC Last administered on 11/01/16 21:00; Admin Dose 8 UNIT; Start 10/30/16 at 21:00 Lansoprazole (Prevacid) 30 mg DAILY GTB Last administered on 11/04/16 09:44; Admin Dose 30 MG; Start 10/31/16 at 09:00 Multivit/Ca Carb/ B Cmplx/FA/Prenat (Leah-Juan Jose) 1 tab DAILY GTB Last administered on 11/04/16 09:45; Admin Dose 1 TAB; Start 10/31/16 at 09:00 Ondansetron HCl (Zofran Tab) 4 mg Q6H PRN GTB NAUSEA AND/OR VOMITING; Start at 19:30 Zolpidem Tartrate (Ambien) 5 mg QHS PRN GTB INSOMNIA; Start 10/30/16 at 19:30 Miscellaneous Information 1 ea NOTE XX ; Start 10/30/16 at 19:30 Glucose (Glutose) 15 gm Q15M PRN PO DECREASED GLUCOSE; Start 10/30/16 at 19:30 Glucose (Glutose) 22.5 gm Q15M PRN PO DECREASED GLUCOSE; Start 10/30/16 at 19: 30 Dextrose (D50w Syringe) 25 ml Q15M PRN IV DECREASED GLUCOSE; Start 10/30/16 at 19:30 Dextrose (D50w Syringe) 50 ml Q15M PRN IV DECREASED GLUCOSE; Start 10/30/16 at 19:30 Glucagon (Glucagen) 1 mg Q15M PRN IM DECREASED GLUCOSE; Start 10/30/16 at 19:30 Glucose (Glutose) 15 gm Q15M PRN BUCCAL DECREASED GLUCOSE; Start 10/30/16 at 19 :30 Doxazosin Mesylate (Cardura) 2 mg QHS GTB Last administered on 11/03/16 20:59; Admin Dose 2 MG; Start 10/30/16 at 21:32 Miscellaneous Information (Pending [facility] Order For Wound Care) This patient flores... PRN PRN XX WOUND CARE; Start 10/31/16 at 08:00 Levetiracetam (Keppra Liquid) 500 mg BID GTB Last administered on 11/04/16 09: 45; Admin Dose 500 MG; Start 10/31/16 at 10:00 CANDY JUAREZ Nov 04, 2016 17:01
[2016-11-04] MEDS: DOXAZOSIN 1 MG TAB GTB SCH (20:36)
[2016-11-04] MEDS: INSULIN DETEMIR [LEVEMIR] 3ML CART SC SCH (20:44)
[2016-11-05] VITALS (16 sets, daily range): BP systolic 111–156; BP diastolic 56–82; PULSE 92–107; RESP 15–20
[2016-11-05 06:49] LABS: BASOPHILS % 0.3 % (0.0-2.0); EOSINOPHILS # 0.1 10^3/ul (0.0-0.5); EOSINOPHILS % 2.2 % (0.0-7.0); HEMATOCRIT 33.4 % (42.0-52.0); HEMOGLOBIN 10.5 g/dl (14.0-18.0); LYMPHOCYTES # 0.9 10^3/ul (0.8-2.9); LYMPHOCYTES % 14.5 % (15.0-51.0); MEAN CORPUSCULAR HEMOGLOBIN 29.7 pg (29.0-33.0); MEAN CORPUSCULAR HGB CONC 31.4 g/dl (32.0-37.0); MEAN CORPUSCULAR VOLUME 94.4 fl (82.0-101.0); MEAN PLATELET VOLUME 9.7 fl (7.4-10.4); MONOCYTE # 0.5 10^3/ul (0.3-0.9); MONOCYTES % 8.4 % (0.0-11.0); NEUTROPHIL # 4.7 10^3/ul (1.6-7.5); NEUTROPHILS % 74.4 % (39.0-77.0); PLATELET COUNT 274 10^3/UL (140-415); RED BLOOD COUNT 3.54 10^6/ul (4.70-6.10); RED CELL DISTRIBUTION WIDTH 14.6 % (11.5-14.5); WHITE BLOOD COUNT 6.3 10^3/ul (4.8-10.8)
[2016-11-05 07:16] LABS: CALCIUM 10.8 mg/dl (8.4-10.2); CREATININE 4.71 mg/dl (0.61-1.24); POTASSIUM 4.2 mmol/L (3.5-5.1)
[2016-11-05] MEDS: LANSOPRAZOLE 30 MG CAP GTB SCH (08:19)
[2016-11-05] MEDS: LEVETIRACETAM (100 MG/ML) 5ML CUP GTB SCH (08:19)
[2016-11-05] MEDS: FOLIC ACID 1 MG TAB GTB SCH (08:19)
[2016-11-05] MEDS: MULTIVIT/CA CARB/B CMPLX/FA TAB GTB SCH (08:19)
--- NOTE | 2016-11-05 11:47 | PN ---
Date/Time of Note Date/Time of Note DATE: 11/05/16 TIME: 11:46 Assessment/Plan VTE Prophylaxis VTE Prophylaxis Intervention: SCD's Lines/Catheters [facility] perma cath Urinary Cath still in place: No Assessment/Plan Chief Complaint/Hosp Course No acute events overnight patient looks comfortable pending hemodialysis today Assessment/Plan - Hemodialysis dependent end-stage renal disease. Dr. Sales is following patient in nephrology consultation. - Hyperkalemia secondary to ESRD on admission, resolved. - Rectal bleed, Dr Salter is following in GI consultation. Status post colonoscopy yesterday. - Seizure disorder, continue Keppra - Chronic respiratory failure with tracheostomy - Dysphagia with G-tube, continue G-tube feeding, aspiration precaution. - Diabetes mellitus, continue Lantus and NovoLog. - Hypertension. Continue Cardura and hydralazine. - Anemia of chronic disease. Further recommendations based on clinical course. Plan of care discussed with Dr. Godinez. Problems: Exam/Review of Systems Vital Signs Vitals Vital Signs Date Time Temp Pulse Resp B/P Pulse Ox O2 Delivery O2 Flow Rate FiO2 11/05/16 11:36 97.5 98 20 118/56 100 11/05/16 08:33 5.0 28 11/05/16 05:19 Aerosol T Tube Intake and Output 11/04/16 11/04/16 11/05/16 15:00 23:00 07:00 Intake Total 740 ml 780 ml Output Total 1 ml Balance 740 ml 779 ml Exam Constitutional: alert, oriented Head: atraumatic, normocephalic Neck: non-tender, supple Respiratory: normal air movement Cardiovascular: nl pulses Gastrointestinal: non-tender, soft Musculoskeletal: muscle weakness Extremities: normal pulses Results Result Diagram: 11/05/16 0550 11/05/16 0550 Results 24 hrs Laboratory Tests Test 11/04/16 20:33 11/05/16 05:50 Bedside Glucose 91 White Blood Count 6.3 Red Blood Count 3.54 L Hemoglobin 10.5 L Hematocrit 33.4 L Mean Corpuscular Volume 94.4 Mean Corpuscular Hemoglobin 29.7 Mean Corpuscular Hemoglobin Concent 31.4 L Red Cell Distribution Width 14.6 H Platelet Count 274 Mean Platelet Volume 9.7 Neutrophils % 74.4 Lymphocytes % 14.5 L Monocytes % 8.4 Eosinophils % 2.2 Basophils % 0.3 Nucleated Red Blood Cells % 0.0 Neutrophils # 4.7 Lymphocytes # 0.9 Monocytes # 0.5 Eosinophils # 0.1 Basophils # 0.0 Nucleated Red Blood Cells # 0.0 Sodium Level 137 Potassium Level 4.2 Chloride Level 90 L Carbon Dioxide Level 30 Anion Gap 21 H Blood Urea Nitrogen 65 H Creatinine 4.71 #H Glucose Level 59 #L Calcium Level 10.8 H Medications Medications Current Medications Acetaminophen (Tylenol Liquid) 650 mg Q4H PRN GTB MODERATE PAIN 4-10/13; Start 10/30/16 at 19:30 Folic Acid (Folic Acid) 1 mg DAILY GTB Last administered on 11/05/16 08:19; Admin Dose 1 MG; Start 10/31/16 at 09:00 Hydralazine HCl (Apresoline) 50 mg Q8 GTB Last administered on 11/05/16 06:19; Admin Dose 50 MG; Start 10/30/16 at 22:00 Insulin Detemir (Levemir) 8 unit QHS SC Last administered on 11/04/16 20:44; Admin Dose 8 UNIT; Start 10/30/16 at 21:00 Lansoprazole (Prevacid) 30 mg DAILY GTB Last administered on 11/05/16 08:19; Admin Dose 30 MG; Start 10/31/16 at 09:00 Multivit/Ca Carb/ B Cmplx/FA/Prenat (Leah-Juan Jose) 1 tab DAILY GTB Last administered on 11/05/16 08:19; Admin Dose 1 TAB; Start 10/31/16 at 09:00 Ondansetron HCl (Zofran Tab) 4 mg Q6H PRN GTB NAUSEA AND/OR VOMITING; Start at 19:30 Zolpidem Tartrate (Ambien) 5 mg QHS PRN GTB INSOMNIA; Start 10/30/16 at 19:30 Miscellaneous Information 1 ea NOTE XX ; Start 10/30/16 at 19:30 Glucose (Glutose) 15 gm Q15M PRN PO DECREASED GLUCOSE; Start 10/30/16 at 19:30 Glucose (Glutose) 22.5 gm Q15M PRN PO DECREASED GLUCOSE; Start 10/30/16 at 19: 30 Dextrose (D50w Syringe) 25 ml Q15M PRN IV DECREASED GLUCOSE; Start 10/30/16 at 19:30 Dextrose (D50w Syringe) 50 ml Q15M PRN IV DECREASED GLUCOSE; Start 10/30/16 at 19:30 Glucagon (Glucagen) 1 mg Q15M PRN IM DECREASED GLUCOSE; Start 10/30/16 at 19:30 Glucose (Glutose) 15 gm Q15M PRN BUCCAL DECREASED GLUCOSE; Start 10/30/16 at 19 :30 Doxazosin Mesylate (Cardura) 2 mg QHS GTB Last administered on 11/04/16 20:36; Admin Dose 2 MG; Start 10/30/16 at 21:32 [facility]isc[facility] This patient flores... PRN PRN XX WOUND CARE; Start 10/31/16 at 08:00 Levetiracetam (Keppra Liquid) 500 mg BID GTB Last administered on 11/05/16 08: 19; Admin Dose 500 MG; Start 10/31/16 at 10:00 NOELLE JIMENEZ Nov 05, 2016 11:47
[2016-11-05] MEDS: SEVELAMER CARBONATE 0.8 GM PKT GTB SCH (12:04)
--- NOTE | 2016-11-05 12:29 | PN ---
Date/Time of Note Date/Time of Note DATE: 11/05/16 TIME: 12:28 Assessment/Plan Lines/Catheters IV Catheter Type (from [facility]): perma cath Urinary Cath still in place: No Assessment/Plan Chief Complaint/Hosp Course 1. End-stage renal disease. - HD today 2. Uremia. Improved 3. Hypokalemia; improved 4. Anemia. Continue to monitor hemoglobin and hematocrit levels. Continue Epogen with hemodialysis. 5. Mineral bone disorder. Continue to monitor calcium and phosphorus levels. Continue phosphate binders. 6. Hypertension. Continue current blood pressure regimen. 7. s/p Sepsis secondary to pneumonia. s/p antibiotics 6. Chronic respiratory failure, status post tracheostomy, currently stable. 7. Diabetes. Continue current insulin regimen. 8. Chronic encephalopathy. No change. 9. Seizure disorder. Continue current medical management. 10. hyponatremia: Hd on 140 na bath 10. rectal bleed: f/u gi, pending colonoscopy Problems: Subjective 24 Hr Interval Summary Free Text/Dictation Patient stable no events overnight Exam/Review of Systems Vital Signs Vitals Vital Signs Date Time Temp Pulse Resp B/P Pulse Ox O2 Delivery O2 Flow Rate FiO2 11/05/16 12:00 92 11/05/16 11:36 97.5 20 118/56 100 11/05/16 08:33 5.0 28 11/05/16 05:19 Aerosol T Tube Intake and Output 11/04/16 11/04/16 11/05/16 15:00 23:00 07:00 Intake Total 740 ml 780 ml Output Total 1 ml Balance 740 ml 779 ml Exam General: in no apparent distress. HEENT: Normocephalic, atraumatic. Eyes: Anicteric sclerae, conjunctivae clear. ENT: Nasal septum midline, oral mucosa moist. Neck supple, no JVD noticed. Respiratory: Bilaterally diminished breath sounds. No use of accessory muscles of respiration. Scattered rhonchi. Cardiovascular: S1, S2 heard. Regular rate and rhythm Abdomen: Soft, nontender, and nondistended. Bowel sounds positive in all 4 quadrants. Genitourinary: Deferred. Extremities: No cyanosis, no clubbing, no edema. Peripheral pulses palpable. Right knee joint pain on palpation. Neurologic: Cranial nerves II through XII grossly intact. The patient is awake, alert, and oriented. Skin: Normal skin turgor. No skin rashes Results Result Diagram: 11/05/16 0550 11/05/16 0550 Results 24 hrs Laboratory Tests Test 11/04/16 20:33 11/05/16 05:50 Bedside Glucose 91 White Blood Count 6.3 Red Blood Count 3.54 L Hemoglobin 10.5 L Hematocrit 33.4 L Mean Corpuscular Volume 94.4 Mean Corpuscular Hemoglobin 29.7 Mean Corpuscular Hemoglobin Concent 31.4 L Red Cell Distribution Width 14.6 H Platelet Count 274 Mean Platelet Volume 9.7 Neutrophils % 74.4 Lymphocytes % 14.5 L Monocytes % 8.4 Eosinophils % 2.2 Basophils % 0.3 Nucleated Red Blood Cells % 0.0 Neutrophils # 4.7 Lymphocytes # 0.9 Monocytes # 0.5 Eosinophils # 0.1 Basophils # 0.0 Nucleated Red Blood Cells # 0.0 Sodium Level 137 Potassium Level 4.2 Chloride Level 90 L Carbon Dioxide Level 30 Anion Gap 21 H Blood Urea Nitrogen 65 H Creatinine 4.71 #H Glucose Level 59 #L Calcium Level 10.8 H Medications Medications Current Medications Acetaminophen (Tylenol Liquid) 650 mg Q4H PRN GTB MODERATE PAIN 4-610; Start 10/30/16 at 19:30 Folic Acid (Folic Acid) 1 mg DAILY GTB Last administered on 11/05/16 08:19; Admin Dose 1 MG; Start 10/31/16 at 09:00 Hydralazine HCl (Apresoline) 50 mg Q8 GTB Last administered on 11/05/16 06:19; Admin Dose 50 MG; Start 10/30/16 at 22:00 Insulin Detemir (Levemir) 8 unit QHS SC Last administered on 11/04/16 20:44; Admin Dose 8 UNIT; Start 10/30/16 at 21:00 Lansoprazole (Prevacid) 30 mg DAILY GTB Last administered on 11/05/16 08:19; Admin Dose 30 MG; Start 10/31/16 at 09:00 Multivit/Ca Carb/ B Cmplx/FA/Prenat (Leah-Juan Jose) 1 tab DAILY GTB Last administered on 11/05/16 08:19; Admin Dose 1 TAB; Start 10/31/16 at 09:00 Ondansetron HCl (Zofran Tab) 4 mg Q6H PRN GTB NAUSEA AND/OR VOMITING; Start at 19:30 Zolpidem Tartrate (Ambien) 5 mg QHS PRN GTB INSOMNIA; Start 10/30/16 at 19:30 Miscellaneous Information 1 ea NOTE XX ; Start 10/30/16 at 19:30 Glucose (Glutose) 15 gm Q15M PRN PO DECREASED GLUCOSE; Start 10/30/16 at 19:30 Glucose (Glutose) 22.5 gm Q15M PRN PO DECREASED GLUCOSE; Start 10/30/16 at 19: 30 Dextrose (D50w Syringe) 25 ml Q15M PRN IV DECREASED GLUCOSE; Start 10/30/16 at 19:30 Dextrose (D50w Syringe) 50 ml Q15M PRN IV DECREASED GLUCOSE; Start 10/30/16 at 19:30 Glucagon (Glucagen) 1 mg Q15M PRN IM DECREASED GLUCOSE; Start 10/30/16 at 19:30 Glucose (Glutose) 15 gm Q15M PRN BUCCAL DECREASED GLUCOSE; Start 10/30/16 at 19 :30 Doxazosin Mesylate (Cardura) 2 mg QHS GTB Last administered on 11/04/16 20:36; Admin Dose 2 MG; Start 10/30/16 at 21:32 Miscellaneous Information (Pending [facility] Order For Wound Care) This patient flores... PRN PRN XX WOUND CARE; Start 10/31/16 at 08:00 Levetiracetam (Keppra Liquid) 500 mg BID GTB Last administered on 11/05/16 08: 19; Admin Dose 500 MG; Start 10/31/16 at 10:00 MARYURI RYAN DO Nov 05, 2016 12:29
--- NOTE | 2016-11-07 16:03 | DS ---
Date/Time of Note Date/Time of Note DATE: 11/07/16 TIME: 16:00 Discharge Summary Admission/Discharge Info Admit Date/Time Oct 30, 2016 at 16:55 Discharge Date/Time Nov 05, 2016 at 18:00 Discharge Diagnosis - Hemodialysis dependent end-stage renal disease. - Hyperkalemia secondary to ESRD on admission, resolved. - Rectal bleed, Dr Salter is following in GI consultation. Status post colonoscopy. - Seizure disorder, continue Keppra - Chronic respiratory failure with tracheostomy - Dysphagia with G-tube, continue G-tube feeding, aspiration precaution. - Diabetes mellitus, continue Lantus and NovoLog. - Hypertension. Continue Cardura and hydralazine. - Anemia of chronic disease. Patient Condition: Good Hx of Present Illness The patient is 66-year-old gentleman with past medical history positive for nontraumatic intracranial bleed, status post craniotomy, seizure disorder, chronic respiratory failure with tracheostomy currently weaned to T-tube, dysphagia with G-tube, diabetes mellitus, hypertension, hemodialysis dependent end-stage renal disease, anemia of chronic disease. Patient was treated for pneumonia and and sepsis secondary to pneumonia at previous admission, and was discharged to long-term facility. Patient was not able to undergo hemodialysis long-term facility and patient was brought to the hospital was elevated above normal BUN and creatinine and hyperkalemia. Patient is also noted to have rectal bleed at long-term facility, no fever nausea vomiting diarrhea were reported. Hospital Course - Hemodialysis dependent end-stage renal disease. Dr. Sales is following patient in nephrology consultation. - Hyperkalemia secondary to ESRD on admission, resolved. - Rectal bleed, Dr Salter is following in GI consultation. Status post colonoscopy with polypectomy biopsies positive for tubular adenoma of the rectum , negative for malignancy. - Seizure disorder, continue Keppra - Chronic respiratory failure with tracheostomy - Dysphagia with G-tube, continue G-tube feeding, aspiration precaution. - Diabetes mellitus, continue Lantus and NovoLog. - Hypertension. Continue Cardura and hydralazine. - Anemia of chronic disease. Home Meds Reported Medications Insulin Human Regular (Novolin-R U-100) 100 Unit/Ml Soln, 0 SC AC LUNCH DINNER Y for SLIDING SCALE, EA 75-150=0 UNITS,151-200=2 UNITS,201-250=4 UNITS,251-300=6 UNITS, 301-350=8 UNITS,351-400=10 UNITS,IF>400=12 UNITS AND CALL MD. START DATE-10/25/16 STOP DATE-11/18/16 10/30/16 Insulin Detemir (Levemir Flextouch) 100 Unit/1 Ml Insuln.pen, 8 UNIT SQ QHS START DATE-10/25/16 STOP DATE-11/07/16 10/30/16 Hydralazine Hcl* (Hydralazine Hcl*) 50 Mg Tab, 50 MG GTB Q8, #90 TAB HOLD FOR SBP<110 START DATE-10/25/16 STOP DATE -11/07/16 10/30/16 Sevelamer Carbonate* (Renvela*) 800 Mg Tablet, 0.8 GM GTB WITH MEALS, TAB START DATE-10/25/16 STOP DATE-11/18/16 10/30/16 Sennosides* (Senna Lax*) 8.6 Mg Tablet, 1 TAB GTB Q9AM, TAB START DATE-10/25/16 STOP DATE 11/18/16 10/30/16 Multivit/Ca Carb/B Cmplx/Fa* (Leah-Juan Jose*) 1 Tab Tab, 1 TAB GTB Q9AM, TAB START DATE-10/25/16 STOP DATE-11/18/16 10/30/16 Folic Acid* (Folic Acid*) 1 Mg Tablet, 1 MG GTB Q9AM, TAB START DATE-10/25/16 STOP DATE 11/18/16 10/30/16 Zolpidem Tartrate* (Zolpidem Tartrate*) 5 Mg Tablet, 5 MG GTB QHS Y for INSOMNIA , #30 TAB START DATE-10/25/16 STOP DATE-11/07/16 10/30/16 Magnesium Hydroxide* (Milk Of Magnesia*) 400 Mg/5 Ml Oral.susp, 30 ML GTB Q24H for CONSTIPATION, ML START DAY-10/25/16 STOP DAY-11/07/16 10/30/16 Ondansetron Hcl* (Ondansetron Hcl*) 4 Mg Tablet, 4 MG GTB Q6H Y for NAUSEA AND/ OR VOMITING, TAB START DAY-10/25/16 STOP DAY-11/07/16 10/30/16 Clonidine Hcl* (Clonidine Hcl*) 0.1 Mg Tab, 0.1 MG GTB Q24H Y for SBP>160, TAB START DAY-10/25/16 STOP DAY-11/07/16 10/30/16 Acetaminophen* (Tylenol*) 325 Mg Tablet, 650 MG GTB Q4H Y for MODERATE PAIN 4-, TAB START DAY-10/25/16 STOP DAY-11/07/16 10/30/16 Acetaminophen* (Acetaminophen*) 325 Mg Tablet, 325 MG GTB Q4H Y for MILD PAIN LEVEL 1-3, #30 TAB START DAY-10/25/16 STOP DAY-11/07/16 10/30/16 Metoprolol Tartrate* (Lopressor*) 25 Mg Tab, 25 MG GTB BID, #60 TAB HOLD FOR SBP<110 OR HR<60 START DAY-10/25/16 STOP JOSE R-11/07/16 10/30/16 Doxazosin Mesylate* (Cardura*) 2 Mg Tablet, 2 MG GTB QHS, #30 TAB 10/30/16 Lansoprazole* (Lansoprazole*) 30 Mg Capsule.dr, 30 MG GTB Q6AM, CAP 10/30/16 Levetiracetam* (Keppra* (Ped)) 100 Mg/Ml Liq, 5 ML GTB BID for 30 Days, BOTTLE 10/30/16 Follow-up Plan BMP, CBC in 1 week, HD 3days aweek Primary Care Provider Javier Godinez MD Time spent on discharge: > 30 minutes NOELLE JIMENEZ Nov 07, 2016 16:03
== END 2016-11-05 18:00 | DRG 698 ==
LOC: E/R 14:51 → MS4 16:55
PROVIDERS: ADMIT Internal Medicine; ATTEND Internal Medicine
PROC: 5A1D60Z (ICD-10-PCS; 2016-10-31)
PROC: 0DBN8ZZ Excision of Sigmoid Colon, Via Natural or Artificial Opening Endoscopic (ICD-10-PCS; principal; 2016-11-01 17:30)
DX: E11.22 Type 2 diabetes mellitus with diabetic chronic kidney disease (principal); G93.40 Encephalopathy, unspecified; N17.9 Acute kidney failure, unspecified; J96.10 Chronic respiratory failure, unspecified whether with hypoxia or hypercapnia; L89.153 Pressure ulcer of sacral region, stage 3; N18.6 End stage renal disease; I12.0 Hypertensive chronic kidney disease with stage 5 chronic kidney disease or end stage renal disease; K62.5 Hemorrhage of anus and rectum; E87.1 Hypo-osmolality and hyponatremia; I47.1 Supraventricular tachycardia; Z99.2 Dependence on renal dialysis; Z93.0 Tracheostomy status; Z93.1 Gastrostomy status; G40.909 Epilepsy, unspecified, not intractable, without status epilepticus; Z86.73 Personal history of transient ischemic attack (TIA), and cerebral infarction without residual deficits; E87.5 Hyperkalemia; R13.10 Dysphagia, unspecified; D63.8 Anemia in other chronic diseases classified elsewhere; M89.8X9 Other specified disorders of bone, unspecified site; E83.9 Disorder of mineral metabolism, unspecified; Z74.01 Bed confinement status; G30.9 Alzheimer's disease, unspecified; F02.80 Dementia in other diseases classified elsewhere, unspecified severity, without behavioral disturbance, psychotic disturbance, mood disturbance, and anxiety; D12.8 Benign neoplasm of rectum
CPT/HCPCS: 36415; 71010; 80048; 80053; 82962; 83735; 84100; 84132; 85025; 85610; 85730; 86704; 86709; 86803; 86850; 86900; 86901; 87081; 87340; 88305; 90935; 93005; J1815; J7042